=== PATIENT | female | born 1965 | race Caucasian/White ===

== ENCOUNTER 2018-06-02 22:24 | Emergency (ER) | payer MEDICARE ==
[~2018-06-02] VITALS: Ht 162.6 cm; Wt 99.8 kg
== END 2018-06-02 23:20 | disposition left against medical advice (07) ==
LOC: ER 22:24
DX: R19.7 Diarrhea, unspecified (principal)

== ENCOUNTER 2018-06-03 00:24 | Emergency (ER) | payer MEDICARE ==
[~2018-06-03] VITALS: Ht 162.6 cm; Wt 99.8 kg
[2018-06-03 01:52] LABS: BASOPHILS % 0.3 % (0.0-1.0); EOSINOPHILS # (AUTO) 0.2 (0.0-0.4); EOSINOPHILS % 1.8 % (0.0-6.0); HEMATOCRIT 35.9 % (34.2-44.1); HEMOGLOBIN 12.1 g/dL (12.0-16.0); LYMPHOCYTES # (AUTO) 1.4 (1.0-3.2); LYMPHOCYTES % 12.2 % (18.0-39.1); MEAN CORPUSCULAR HEMOGLOBIN 34.9 pg (28-32); MEAN CORPUSCULAR HGB CONC 33.7 g/dL (31-35); MEAN CORPUSCULAR VOLUME 103.5 fL (81-99); MONOCYTES # (AUTO) 0.5 (0.2-0.8); MONOCYTES % 4.6 % (4.4-11.3); NEUTROPHILS # (AUTO) 9.3 (2.1-6.9); NEUTROPHILS % 80.8 % (38.7-80.0); PLATELET COUNT 222 x10e3/uL (140-360); RED BLOOD COUNT 3.47 x10e6/uL (3.6-5.1); RED CELL DISTRIBUTION WIDTH 13.2 % (11.7-14.4)
[2018-06-03 02:04] LABS: INR 1.02; PARTIAL THROMBOPLASTIN TIME 27.6 seconds (23.8-35.5); PROTHROMBIN TIME 12.6 seconds (11.9-14.5)
[2018-06-03 02:12] LABS: ALBUMIN 3.5 g/dL (3.5-5.0); ALBUMIN/GLOBULIN RATIO 0.8 (0.8-2.0); ANION GAP 23.9 mmol/L (8-16); CALCIUM 9.4 mg/dL (8.4-10.2); CREATININE, SERUM 8.57 mg/dL (0.57-1.11); POTASSIUM 4.9 mmol/L (3.5-5.1)
== END 2018-06-03 03:00 | disposition home or self-care (01) ==
LOC: ER 00:24
DX: R88.8 Abnormal findings in other body fluids and substances (principal); N18.6 End stage renal disease; Z99.2 Dependence on renal dialysis
CPT/HCPCS: 36415; 80053; 85025; 85610; 85730; 86850; 86900; 99283

== ENCOUNTER 2019-03-19 09:53 | Emergency (ER) | payer MEDICARE ==
[~2019-03-19] VITALS: Ht 162.6 cm; Wt 103.6 kg
--- OUTSIDE RECORDS SUMMARY | 2019-03-19 09:55 | XMS REPORT | Clinical Summary ---
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 Last Filed Vital Signs Not on file Plan of Treatment Health Maintenance Due Date Last Done Comments BREAST CANCER SCREENING 2015 COLON CANCER SCREENING 2015 SHINGLES VACCINES (#1) 2015 INFLUENZA VACCINE 05/18/2019 Results Not on fileafter 03/18/2018 Insurance Type Payer Benefit Subscriber ID Effective Phone Address Plan / Dates Group Medicare MEDICARE MEDICARE xxxxxxxxxx 2013-P [place] Medicaid MEDICAID MEDICAID xxxxxxxxx 2016- Present Advance Directives Patient has advance care planning documents on file. For more information, ric lanier contact: Orlando Cummins [address] [place] [address]
--- OUTSIDE RECORDS SUMMARY | 2019-03-19 09:56 | XMS REPORT | Clinical Summary ---
Author Author REAL [facility] Organization [facility] Address Unknown Phone Unavailable Care Team Providers Care Furniture Packer Name Role Phone Mike Forbes PCP Unavailable Pedro Castillo Unavailable Francisco Monroy MD 3 Leslie Iglesias MD 3 Unavailable Allergies Comments Active Allergy Reactions Severity Noted Date Tachycardia Glyburide 05/21/2014 Penicillins Anaphylaxis, High 05/21/2014 Hives Medications End Date Status Medication Sig Dispensed Refills Start Date Active simvastatin (ZOCOR) 20 MG Take 20 mg by 0 tablet mouth nightly. Active levothyroxine (SYNTHROID, Take 75 mcg 0 LEVOTHROID) 75 MCG tablet by mouth daily. Active metoprolol (LOPRESSOR) 50 Take 50 mg by 0 MG tablet mouth 2 (two) times daily. Active cholecalciferol, vitamin Take 50,000 0 D3, 50,000 unit Tab Units by mouth. Active insulin glargine (LANTUS) Inject 25 0 100 unit/mL injection Units subcutaneousl y every morning Use as directed . Active FA-vit Take 1 tablet 0 Bcomp&E-btpdjghu-yvjd by mouth 2 (FOLIC ACID-VITAMIN B (two) times COMPLEX-VITAMIN daily . C-[id number]) 3-70-15 mg-mcg-mg Tab Active omega-3 fatty acids-fish Take 2 g by 0 oil 340-1,000 mg Cap per mouth 2 (two) capsule times daily. Active sevelamer (RENVELA) 800 Take 800 mg 0 mg tabletIndications: 4 by mouth 3 tabs w/ meals (three) times daily with meals. Active sertraline (ZOLOFT) 50 MG Take 50 mg by 0 tablet mouth 2 (two) times daily . Active ondansetron (ZOFRAN) 4 MG Take 4 mg by 0 tablet mouth 2 (two) times daily as needed for Nausea. Active ferric citrate (AURYXIA) Take 420 mg 0 210 mg iron Tab by mouth 3 (three) times daily . Active midodrine (PROAMATINE) 5 Take 5 mg by 0 MG tabletIndications: mouth. take on Tues, Thurs and Sat. Active furosemide (LASIX) 80 MG Take 80 mg by 0 tablet mouth 3 (three) times daily. 11/01/2018 Discontinued furosemide (LASIX) 40 MG Take 80 mg by 0 tablet mouth daily . 11/01/2018 Discontinued calcium acetate (PHOSLO) Take 667 mg 0 667 mg capsule by mouth 3 (three) times daily with meals. 11/01/2018 Discontinued citalopram (CELEXA) 40 MG Take 40 mg by 0 tablet mouth daily. 11/01/2018 Discontinued docusate sodium (COLACE) Take 100 mg 0 100 MG capsule by mouth 2 (two) times daily. 11/01/2018 Discontinued multivitamin per tablet Take 1 tablet 0 by mouth daily. 11/01/2018 Discontinued buPROPion (WELLBUTRIN XL) Take 300 mg 0 300 MG 24 hr tablet by mouth daily. 11/01/2018 Discontinued midodrine (PROAMATINE) 10 Take 10 mg by 0 MG tablet mouth 3 (three) times daily. 11/01/2018 Discontinued iron, carbonyl (IRON) 65 Take by 0 mg Tab mouth. 11/01/2018 Discontinued ipratropium-albuterol Take 3 mLs by 0 (DUO-NEB) 0.5 mg-3 mg(2.5 nebulization mg base)/3 mL nebulizer every 6 (six) solution hours as needed for Wheezing. 11/01/2018 Discontinued albuterol Take 2.5 mg 0 (PROVENTIL,VENTOLIN) 5 by mg/mL nebulizer solution nebulization every 6 (six) hours as needed for Wheezing. 11/01/2018 Discontinued traMADol (ULTRAM) 50 mg Take 50 mg by 0 tablet mouth every 6 (six) hours as needed for Pain. Active Problems Problem Noted Date ESRD (end stage renal disease) 05/21/2014 Last Assessment & Plan: In evaluation. Weight loss management Encounters Care Team Description Date Type Specialty Eusebia Magaña RN 12/20/2018 Documentation Transplant Jenny Douglass Appointment (Per Mr. Mcintyre he appt will need to be rescheduled she's unable to keep the appt because the patient will need to do dialysis on . Mr Mcintyre is aware of the new appt dates and I have emailed the itinerary to the patient and mailed the itinerary) 12/14/2018 Telephone Transplant Jenny Douglass Appointment ( is aware of appts and the preps for the testing. I have mailed her itineraries) 11/14/2018 Telephone Transplant Jenny Douglass Appointment (Left a message for the patient to call me back about her schedule) 11/02/2018 Telephone Transplant Angelica Loaiza MD Labrador, Florencia P, RN Pre-transplant evaluation for chronic kidney disease (Primary Dx) 11/01/2018 Office Visit Transplant Angelica Loaiza MD Pre-transplant evaluation for chronic kidney disease; ESRD (end stage renal disease) on dialysis (HCC); Anemia of renal disease; Type 2 diabetes mellitus with stage 5 chronic kidney disease not on chronic dialysis, unspecified whether correction insulin use (HCC) 11/01/2018 Orders Only Transplant Hepatology Jenny Douglass Appointment (Left a message for Mr. Mcintyre to call back about his spouse appt dates) 11/01/2018 Telephone Transplant Eusebia Magaña RN 11/01/2018 Documentation Transplant Hernan Graves II, MD 10/28/2018 Outside Orders Radiology Jenny Douglass Appointment (Left a message for the patient to call back to confim her appt on 11.01.18) 10/28/2018 Telephone Transplant Eun Alonso 08/23/2018 Abstract Transplant Eun Alonso Appointment (reschedule missed appt) 08/16/2018 Telephone Transplant Jenny Douglass Appointment (Left a message on the pts cell, home and emergency contact voicemail to call back to confirm her appts and reschedule he missed appt) 08/15/2018 Telephone Transplant Eun Alonso Appointment (reschedule missed appt) 07/19/2018 Telephone Transplant Eun Alonso Appointment (Reschedule) 06/28/2018 Telephone Transplant Eusebia Magaña RN 06/15/2018 Abstract Transplant Eusebia Magaña RN Pre-transplant evaluation for chronic kidney disease (Primary Dx); ESRD (end stage renal disease) on dialysis (HCC); Anemia of renal disease; Type 2 diabetes mellitus with stage 5 chronic kidney disease not on chronic dialysis, unspecified whether termite treater insulin use (HCC) 06/15/2018 Orders Only Transplant Eun Alonso 05/26/2018 Abstract Transplant Eun Alonso 05/13/2018 Abstract Transplant after 03/18/2018 Social History Date Tobacco Use Types Packs/Day Years Used Never Smoker Smokeless Tobacco: Never Used Alcohol Use Drinks/Week oz/Week Comments No Sex Assigned at Date Recorded Not on file Industry Job Start Date Occupation Not on file Not on file Not on file Travel End Travel History Travel Start No recent travel history available. Last Filed Vital Signs Time Taken Vital Sign Reading - Blood Pressure - - Pulse - - Temperature - - Respiratory Rate - - Oxygen Saturation - - Inhaled Oxygen - Concentration 08/23/2018 10:17 AM [employer]ICAL [employer]STRUMENT [employer] Weight 101 kg (222 lb 10.6 oz) 08/23/2018 10:17 AM [employer]LECTRICAL AND INSTRUMENT MECHANIC Height 162.6 cm (5' 4") 08/23/2018 10:17 AM [employer]LECTRICAL AND INSTRUMENT MECHANIC Body Mass Index 38.22 Plan of Treatment Not on file Procedures Comments Procedure Name Priority Date/Time Associated Diagnosis TRANSFUSION SERVICE 11/02/2018 REPORT - SCAN 6:05 PM ELECTRICAL AND INSTRUMENT MECHANIC CBC W/PLT COUNT & AUTO Routine 11/01/2018 Pre-transplant evaluation DIFFERENTIAL 8:42 AM ELECTRICAL AND INSTRUMENT MECHANIC for chronic kidney disease ESRD (end stage renal disease) on dialysis (HCC) Anemia of renal disease Type 2 diabetes mellitus with stage 5 chronic kidney disease not on chronic dialysis, unspecified whether correction insulin use (HCC) DIRECT AHG (RICARDA)/DIRECT Routine 11/01/2018 Pre-transplant evaluation MARSHAL 8:42 AM ELECTRICAL AND INSTRUMENT MECHANIC for chronic kidney disease ESRD (end stage renal disease) on dialysis (HCC) Anemia of renal disease Type 2 diabetes mellitus with stage 5 chronic kidney disease not on chronic dialysis, unspecified whether correction insulin use (HCC) FLOW PRA CLASS I WITH Routine 11/01/2018 Pre-transplant evaluation REFLEX TO ANTIBODY 8:42 AM ELECTRICAL AND INSTRUMENT MECHANIC for chronic kidney SPECIFICITY disease ESRD (end stage renal disease) on dialysis (HCC) Anemia of renal disease Type 2 diabetes mellitus with stage 5 chronic kidney disease not on chronic dialysis, unspecified whether correction insulin use (HCC) FLOW PRA CLASS II WITH Routine 11/01/2018 Pre-transplant evaluation REFLEX TO ANTIBODY 8:42 AM ELECTRICAL AND INSTRUMENT MECHANIC for chronic kidney SPECIFICITY disease ESRD (end stage renal disease) on dialysis (HCC) Anemia of renal disease Type 2 diabetes mellitus with stage 5 chronic kidney disease not on chronic dialysis, unspecified whether correction insulin use (HCC) HLA TYPING CI Routine 11/01/2018 Pre-transplant evaluation 8:42 AM ELECTRICAL AND INSTRUMENT MECHANIC for chronic kidney disease ESRD (end stage renal disease) on dialysis (HCC) Anemia of renal disease Type 2 diabetes mellitus with stage 5 chronic kidney disease not on chronic dialysis, unspecified whether termite treater insulin use (HCC) HLA TYPING CII Routine 11/01/2018 Pre-transplant evaluation 8:42 AM ELECTRICAL AND INSTRUMENT MECHANIC for chronic kidney disease ESRD (end stage renal disease) on dialysis (HCC) Anemia of renal disease Type 2 diabetes mellitus with stage 5 chronic kidney disease not on chronic dialysis, unspecified whether correction insulin use (HCC) VARICELLA ZOSTER Routine 11/01/2018 Pre-transplant evaluation ANTIBODY, IGG 8:42 AM ELECTRICAL AND INSTRUMENT MECHANIC for chronic kidney disease ESRD (end stage renal disease) on dialysis (HCC) Anemia of renal disease Type 2 diabetes mellitus with stage 5 chronic kidney disease not on chronic dialysis, unspecified whether termite treater insulin use (HCC) URIC ACID Routine 11/01/2018 Pre-transplant evaluation 8:42 AM ELECTRICAL AND INSTRUMENT MECHANIC for chronic kidney disease ESRD (end stage renal disease) on dialysis (HCC) Anemia of renal disease Type 2 diabetes mellitus with stage 5 chronic kidney disease not on chronic dialysis, unspecified whether termite treater insulin use (HCC) T SPOT TB Routine 11/01/2018 Pre-transplant evaluation 8:42 AM ELECTRICAL AND INSTRUMENT MECHANIC for chronic kidney disease ESRD (end stage renal disease) on dialysis (HCC) Anemia of renal disease Type 2 diabetes mellitus with stage 5 chronic kidney disease not on chronic dialysis, unspecified whether correction insulin use (HCC) RPR Routine 11/01/2018 Pre-transplant evaluation 8:42 AM ELECTRICAL AND INSTRUMENT MECHANIC for chronic kidney disease ESRD (end stage renal disease) on dialysis (HCC) Anemia of renal disease Type 2 diabetes mellitus with stage 5 chronic kidney disease not on chronic dialysis, unspecified whether correction insulin use (HCC) PT/APTT Routine 11/01/2018 Pre-transplant evaluation 8:42 AM ELECTRICAL AND INSTRUMENT MECHANIC for chronic kidney disease ESRD (end stage renal disease) on dialysis (HCC) Anemia of renal disease Type 2 diabetes mellitus with stage 5 chronic kidney disease not on chronic dialysis, unspecified whether termite treater insulin use (HCC) PTH, INTACT Routine 11/01/2018 Pre-transplant evaluation 8:42 AM ELECTRICAL AND INSTRUMENT MECHANIC for chronic kidney disease ESRD (end stage renal disease) on dialysis (HCC) Anemia of renal disease Type 2 diabetes mellitus with stage 5 chronic kidney disease not on chronic dialysis, unspecified whether correction insulin use (HCC) PHOSPHORUS Routine 11/01/2018 Pre-transplant evaluation 8:42 AM ELECTRICAL AND INSTRUMENT MECHANIC for chronic kidney disease ESRD (end stage renal disease) on dialysis (HCC) Anemia of renal disease Type 2 diabetes mellitus with stage 5 chronic kidney disease not on chronic dialysis, unspecified whether termite treater insulin use (HCC) LACTATE DEHYDROGENASE Routine 11/01/2018 Pre-transplant evaluation (LDH) 8:42 AM ELECTRICAL AND INSTRUMENT MECHANIC for chronic kidney disease ESRD (end stage renal disease) on dialysis (HCC) Anemia of renal disease Type 2 diabetes mellitus with stage 5 chronic kidney disease not on chronic dialysis, unspecified whether correction insulin use (HCC) HIV-1 ANTIGEN WITH Routine 11/01/2018 Pre-transplant evaluation HIV-1/2 ANTIBODY 8:42 AM ELECTRICAL AND INSTRUMENT MECHANIC for chronic kidney disease ESRD (end stage renal disease) on dialysis (HCC) Anemia of renal disease Type 2 diabetes mellitus with stage 5 chronic kidney disease not on chronic dialysis, unspecified whether correction insulin use (HCC) HEPATITIS C ANTIBODY Routine 11/01/2018 Pre-transplant evaluation 8:42 AM ELECTRICAL AND INSTRUMENT MECHANIC for chronic kidney disease ESRD (end stage renal disease) on dialysis (HCC) Anemia of renal disease Type 2 diabetes mellitus with stage 5 chronic kidney disease not on chronic dialysis, unspecified whether correction insulin use (HCC) HEPATITIS B CORE Routine 11/01/2018 Pre-transplant evaluation ANTIBODY, IGM 8:42 AM ELECTRICAL AND INSTRUMENT MECHANIC for chronic kidney disease ESRD (end stage renal disease) on dialysis (HCC) Anemia of renal disease Type 2 diabetes mellitus with stage 5 chronic kidney disease not on chronic dialysis, unspecified whether termite treater insulin use (HCC) HEPATITIS B SURFACE Routine 11/01/2018 Pre-transplant evaluation ANTIGEN 8:42 AM ELECTRICAL AND INSTRUMENT MECHANIC for chronic kidney disease ESRD (end stage renal disease) on dialysis (HCC) Anemia of renal disease Type 2 diabetes mellitus with stage 5 chronic kidney disease not on chronic dialysis, unspecified whether correction insulin use (HCC) HEPATITIS B SURFACE Routine 11/01/2018 Pre-transplant evaluation ANTIBODY 8:42 AM ELECTRICAL AND INSTRUMENT MECHANIC for chronic kidney disease ESRD (end stage renal disease) on dialysis (HCC) Anemia of renal disease Type 2 diabetes mellitus with stage 5 chronic kidney disease not on chronic dialysis, unspecified whether correction insulin use (HCC) GAMMA GLUTAMYL Routine 11/01/2018 Pre-transplant evaluation TRANSFERASE (GGT) 8:42 AM ELECTRICAL AND INSTRUMENT MECHANIC for chronic kidney disease ESRD (end stage renal disease) on dialysis (HCC) Anemia of renal disease Type 2 diabetes mellitus with stage 5 chronic kidney disease not on chronic dialysis, unspecified whether termite treater insulin use (HCC) EBV ANTIBODY, IGM Routine 11/01/2018 Pre-transplant evaluation 8:42 AM ELECTRICAL AND INSTRUMENT MECHANIC for chronic kidney disease ESRD (end stage renal disease) on dialysis (HCC) Anemia of renal disease Type 2 diabetes mellitus with stage 5 chronic kidney disease not on chronic dialysis, unspecified whether correction insulin use (HCC) EBV ANTIBODY, IGG Routine 11/01/2018 Pre-transplant evaluation 8:42 AM ELECTRICAL AND INSTRUMENT MECHANIC for chronic kidney disease ESRD (end stage renal disease) on dialysis (HCC) Anemia of renal disease Type 2 diabetes mellitus with stage 5 chronic kidney disease not on chronic dialysis, unspecified whether termite treater insulin use (HCC) COMPREHENSIVE METABOLIC Routine 11/01/2018 Pre-transplant evaluation PANEL 8:42 AM ELECTRICAL AND INSTRUMENT MECHANIC for chronic kidney disease ESRD (end stage renal disease) on dialysis (HCC) Anemia of renal disease Type 2 diabetes mellitus with stage 5 chronic kidney disease not on chronic dialysis, unspecified whether termite treater insulin use (HCC) CYTOMEGALOVIRUS ANTIBODY, Routine 11/01/2018 Pre-transplant evaluation IGM 8:42 AM ELECTRICAL AND INSTRUMENT MECHANIC for chronic kidney disease ESRD (end stage renal disease) on dialysis (HCC) Anemia of renal disease Type 2 diabetes mellitus with stage 5 chronic kidney disease not on chronic dialysis, unspecified whether correction insulin use (HCC) CYTOMEGALOVIRUS ANTIBODY, Routine 11/01/2018 Pre-transplant evaluation IGG 8:42 AM ELECTRICAL AND INSTRUMENT MECHANIC for chronic kidney disease ESRD (end stage renal disease) on dialysis (HCC) Anemia of renal disease Type 2 diabetes mellitus with stage 5 chronic kidney disease not on chronic dialysis, unspecified whether correction insulin use (HCC) CBC W/PLT COUNT & AUTO Routine 11/01/2018 Pre-transplant evaluation DIFFERENTIAL 8:42 AM ELECTRICAL AND INSTRUMENT MECHANIC for chronic kidney disease ESRD (end stage renal disease) on dialysis (HCC) Anemia of renal disease Type 2 diabetes mellitus with stage 5 chronic kidney disease not on chronic dialysis, unspecified whether termite treater insulin use (HCC) HEMOGLOBIN A1C Routine 11/01/2018 Pre-transplant evaluation 8:42 AM ELECTRICAL AND INSTRUMENT MECHANIC for chronic kidney disease ESRD (end stage renal disease) on dialysis (HCC) Anemia of renal disease Type 2 diabetes mellitus with stage 5 chronic kidney disease not on chronic dialysis, unspecified whether correction insulin use (HCC) BLOOD TYPING, AUTOMATED Routine 11/01/2018 Pre-transplant evaluation 8:26 AM ELECTRICAL AND INSTRUMENT MECHANIC for chronic kidney disease ESRD (end stage renal disease) on dialysis (HCC) Anemia of renal disease Type 2 diabetes mellitus with stage 5 chronic kidney disease not on chronic dialysis, unspecified whether correction insulin use (HCC) after 03/18/2018 Results * TRANSFUSION SERVICE REPORT - SCAN (11/02/2018 6:05 PM ELECTRICAL AND INSTRUMENT MECHANIC) Narrative Performed At * HLA TYPING CII (11/01/2018 8:42 AM ELECTRICAL AND INSTRUMENT MECHANIC) HLA-DR AG1 7 [facility] HLA-DR AG2 7 [facility] HLA-DR AG3-1 [facility] HLA-DR AG3-2 [facility] HLA-DR AG4-1 53 [facility] HLA-DR AG4-2 53 [facility] HLA-DR AG5-1 [facility] HLA-DR AG5-2 [facility] HLA-DQA1 AG 1-1 02 [facility] HLA-DQA1 AG 1-2 02 [facility] HLA-DQB1 AG 1-1 2 [facility] HLA-DQB1 AG 1-2 2 [facility] HLA-DPA1 AG 1-1 01 [facility] HLA-DPA1 AG 1-2 02 [facility] HLA-DPB1 AG 1-1 04:01 [facility] HLA-DPB1 AG 1-2 11:01 [facility] HLA-AG Notes [facility] HLA-AG Report Comments [facility] Specimen Blood Narrative Performed At Disclaimer: [facility] This test was developed and its performance characteristics determined by the [facility]. It has not been cleared or approved by the U.S. Food and Drug Administration. The FDA has determined that such clearance or approval is not necessary. This test is used for clinical purposes. It should not be regarded as investigational or for research. This laboratory is certified under the Clinical Laboratory Improvement Amendments of 1988 (CLIA-88) as qualified to perform high complexity clinical laboratory testing. Performing Organization Address City/State/Zipcode Phone Number [facility] ONE [facility] [address], [address]: [id number], [place] [address] CLIA#[id number] CAP#[id number] UNOS#[id number] * HLA TYPING CI (11/01/2018 8:42 AM ELECTRICAL AND INSTRUMENT MECHANIC) HLA-A AG1 3 [facility] HLA-A AG2 29 [facility] HLA-B AG1 44 [facility] HLA-B AG2 51 [facility] HLA-C AG1 16 [facility] HLA-C AG2 16 [facility] HLA-B BW1 4 [facility] HLA-B BW2 4 [facility] HLA-AG Notes [facility] HLA-AG Report Comments [facility] Specimen Blood Narrative Performed At Disclaimer: [facility] This test was developed and its performance characteristics determined by the [facility]. It has not been cleared or approved by the U.S. Food and Drug Administration. The FDA has determined that such clearance or approval is not necessary. This test is used for clinical purposes. It should not be regarded as investigational or for research. This laboratory is certified under the Clinical Laboratory Improvement Amendments of 1988 (CLIA-88) as qualified to perform high complexity clinical laboratory testing. Performing Organization Address City/[facility] Phone Number [facility] Danial [address], [address]: [id number], [place] [address] CLIA#[id number] CAP#[id number] UNOS#[id number] * FLOW PRA CLASS II WITH REFLEX TO ANTIBODY SPECIFICITY (11/01/2018 8:42 AM ELECTRICAL AND INSTRUMENT MECHANIC) Flow Class II Percent 0 [facility] Positive Flow Class Report [facility] Comments Specimen Blood Narrative Performed At Disclaimer: [facility] This test was developed and its performance characteristics determined by the [facility]. It has not been cleared or approved by the U.S. Food and Drug Administration. The FDA has determined that such clearance or approval is not necessary. This test is used for clinical purposes. It should not be regarded as investigational or for research. This laboratory is certified under the Clinical Laboratory Improvement Amendments of 1988 (CLIA-88) as qualified to perform high complexity clinical laboratory testing. Performing Organization Address [facility] Phone Number [facility] Danial [address], MS: [id number], [place] [address] CLIA#[id number] CAP#[id number] UNOS#[id number] * FLOW PRA CLASS I WITH REFLEX TO ANTIBODY SPECIFICITY (11/01/2018 8:42 AM ELECTRICAL AND INSTRUMENT MECHANIC) Flow Class I Percent 0 [facility] Positive Flow Class Report [facility] Comments Specimen Blood Narrative Performed At Disclaimer: [facility] This test was developed and its performance characteristics determined by the [facility]. It has not been cleared or approved by the U.S. Food and Drug Administration. The FDA has determined that such clearance or approval is not necessary. This test is used for clinical purposes. It should not be regarded as investigational or for research. This laboratory is certified under the Clinical Laboratory Improvement Amendments of 1988 (CLIA-88) as qualified to perform high complexity clinical laboratory testing. Performing Organization Address [facility] Phone Number [facility] Danial [address], [address]: [id number], [place] [address] CLIA#[id number] CAP#[id number] UNOS#[id number] * T Spot TB (11/01/2018 8:42 AM ELECTRICAL AND INSTRUMENT MECHANIC) T-Spot TB Negative [facility] Neg Ctrl Spot Count 0 [facility] Panel A Spot 2 [facility] Panel B Spot 0 [facility] Pos Ctrl Spot Ct 0 [facility] Scan Result [facility] Specimen Blood Narrative Performed At Performing Organization Address City/State/Zipcode Phone Number [facility] [address] [place] [address] LABORATORIES 100 * PT/aPTT (11/01/2018 8:42 AM ELECTRICAL AND INSTRUMENT MECHANIC) Protime 12.9 11.7 - 14.[address] [facility] [place] INR 1.0 <=5.[address] [facility] [place] PTT 30.5 22.5 - 36.[address] [facility] [place] Specimen Blood Narrative Performed At RECOMMENDED COUMADIN/WARFARIN INR THERAPY RANGES [facility] STANDARD DOSE: 2.0 - 3.0 Includes: PROPHYLAXIS for venous thrombosis, [facility] systemic embolization; TREATMENT for venous thrombosis and/or pulmonary embolus. HIGH RISK: Target INR is 2.5-3.5 for patients with mechanical heart valves. Performing Organization Address City/[facility]/Zipcode Phone Number [place] [phone] [place] [address] [facility] * HIV-1 Antigen with HIV-1/2 Antibody (11/01/2018 8:42 AM ELECTRICAL AND INSTRUMENT MECHANIC) HIV-1 Antigen with HIV NON-REACTIVE Nonreactive [facility] 1&2 Antibody [facility] Specimen Blood Performing Organization Address City/[facility]/Zipcode Phone Number [facility] [address] [place] [address] [facility] * CBC with platelet count + automated diff (11/01/2018 8:42 AM ELECTRICAL AND INSTRUMENT MECHANIC) WBC 8.8 3.5 - 10.5 K/L [facility] [place] RBC 2.96 (L) 3.93 - 5.22 M/L [facility] [place] Hemoglobin 10.0 (L) 11.2 - 15.7 GM/DL [facility] [place] Hematocrit 30.0 (L) 34.1 - 44.9 % [facility] [place] [place] MCV 101.4 (H) 79.4 - 94.[address] [facility] [place] MCH 33.8 (H) 25.6 - 32.[address] [facility] [place] MCHC 33.3 32.2 - 35.5 GM/DL [facility] [place] RDW 11.8 11.7 - 14.4 % [facility] [place] Platelets 202 150 - 450 K/CU MM [facility] [place] MPV 10.7 9.4 - 12.[address] [facility] [place] nRBC 0 0 - 0 /[address] [facility] [place] % Neutros 81 % [facility] [place] % Lymphs 11 % [facility] [place] % Monos 5 % [facility] [place] % Eos 2 % [facility] [place] % Baso 1 % [facility] [place] # Neutros 7.11 (H) 1.56 - 6.13 K/L [facility] [place] # Lymphs 0.98 (L) 1.18 - 3.74 K/L [facility] [place] # Monos 0.44 (H) 0.24 - 0.36 K/L [facility] [place] # Eos 0.18 0.04 - 0.36 K/L [facility] [place] # Baso 0.05 0.01 - 0.08 K/L [facility] [place] Immature 1 0 - 1 % [facility] Granulocytes-[facility] Specimen Blood Performing Organization Address City/State/Zipcode Phone Number [phone] [place] [address] * Hepatitis C Antibody (11/01/2018 8:42 AM ELECTRICAL AND INSTRUMENT MECHANIC) Hepatitis C Ab NON-REACTIVE Nonreactive [facility] [place] Specimen Blood Performing Organization Address City/[facility] Phone Number [place] [phone] [place] [address] * Cytomegalovirus antibody, IgM (11/01/2018 8:42 AM ELECTRICAL AND INSTRUMENT MECHANIC) CMV IGM Negative Negative, Equivocal [facility] [place] Specimen Blood Narrative Performed At CMV IgM Result Interpretation: [facility] </=0.8 Al Negative [facility] 0.9-1.0 Al Equivocal >/=1.1 Al Positive Performing Organization Address [facility] Phone Number [address] * Hepatitis B core antibody, IgM (11/01/2018 8:42 AM ELECTRICAL AND INSTRUMENT MECHANIC) Hep B C IgM NON-REACTIVE Nonreactive [facility] [place] Specimen Blood Performing Organization Address City/[facility]/Zipcode Phone Number [address] * EBV-VCA antibody, IgM (11/01/2018 8:42 AM ELECTRICAL AND INSTRUMENT MECHANIC) YUNIEL ELLISON VIRAL CAPSID Negative Negative, Equivocal [facility] ANTIGEN IGM [facility] Specimen Blood Narrative Performed At Yuniel Ellison Viral Capsid Antigen IgM Result Interpretation: [facility] </=0.8 Al Negative [facility] 0.9-1.0 Al Equivocal >/=1.1 Al Positive Performing Organization Address City/[facility] Phone Number [address] * EBV-VCA antibody, IgG (11/01/2018 8:42 AM ELECTRICAL AND INSTRUMENT MECHANIC) YUNIEL ELLISON VIRAL CAPSID Positive (A) Negative, Equivocal [facility] ANTIGEN IGG [facility] Specimen Blood Narrative Performed At Yuniel Ellison Viral Capsid Antigen IgG Result Interpretation: [facility] </=0.8 Al Negative [facility] 0.9-1.0 Al Equivocal >/=1.1 Al Positive Performing Organization Address City/[facility] Phone Number [address] * RPR (11/01/2018 8:42 AM ELECTRICAL AND INSTRUMENT MECHANIC) RPR Nonreactive Nonreactive [facility] [place] Specimen Blood Performing Organization Address [facility] Phone Number [address] * Hepatitis B surface antibody (11/01/2018 8:42 AM ELECTRICAL AND INSTRUMENT MECHANIC) Hep B S Ab <8.0 <8.0 mIU/mL [facility] [place] Specimen Blood Performing Organization Address [facility] Phone Number [address] * Hepatitis B surface antigen (11/01/2018 8:42 AM ELECTRICAL AND INSTRUMENT MECHANIC) hepatitis B Surface Ag NON-REACTIVE Nonreactive [facility] [place] Specimen Blood Performing Organization Address [facility] Phone Number [address] * Cytomegalovirus antibody, IgG (11/01/2018 8:42 AM ELECTRICAL AND INSTRUMENT MECHANIC) CYTOMEGALOVIRUS, IGG Positive (A) Negative, Equivocal [facility] [place] Specimen Blood Narrative Performed At CMV IgG Result Interpretation: [facility] </=0.8 Al Negative [facility] 0.9-1.0 Al Equivocal >/=1.1 AlPositive Performing Organization Address [facility] Phone Number [address] * Direct AHG (RICARDA)/Direct Marshal (11/01/2018 8:42 AM ELECTRICAL AND INSTRUMENT MECHANIC) Direct AHG-IGG NEGATIVE [facility] Direct AHG-C3B, C3D NEGATVIE [facility] Specimen Blood Performing Organization Address [facility] Phone Number [address] * Varicella Zoster Antibody, IgG (11/01/2018 8:42 AM ELECTRICAL AND INSTRUMENT MECHANIC) Varicella IgG 4.[address] [facility] [place] Specimen Blood Narrative Performed At VARICELLA ZOSTER RESULT INTERPRETATIONS: [facility] <=0.8 AlNonreactive:Presumed non-immune to VZV [facility] 0.9-1.0 AlEquivocal >=1.1 AlReactive:Presumed immune to VZV Performing Organization Address [facility] Phone Number [address] * Uric Acid (11/01/2018 8:42 AM ELECTRICAL AND INSTRUMENT MECHANIC) Uric Acid 5.6 2.6 - 7.2 mg/dL [facility] [place] Specimen Blood Performing Organization Address [facility] Phone Number [address] * Phosphorus (11/01/2018 8:42 AM ELECTRICAL AND INSTRUMENT MECHANIC) Phosphorus 7.2 (H) 2.3 - 4.7 mg/dL [facility] [place] Specimen Blood Performing Organization Address City/[facility] Phone Number [address] * PTH, Intact (11/01/2018 8:42 AM ELECTRICAL AND INSTRUMENT MECHANIC) PTH 618.4 (H) 8.5 - 72.5 pg/mL [facility] [place] Specimen Blood Performing Organization Address [facility] Phone Number [address] * Lactate Dehydrogenase (LDH) (11/01/2018 8:42 AM ELECTRICAL AND INSTRUMENT MECHANIC) LDH 224 (H) 125 - 220 U/L [facility] [place] Specimen Blood Performing Organization Address City/[facility] Phone Number [address] * Hemoglobin A1c (11/01/2018 8:42 AM ELECTRICAL AND INSTRUMENT MECHANIC) Hemoglobin A1C 10.5 (H) 4.3 - 6.1 % [facility] [place] Specimen Blood Performing Organization Address City/[facility] Phone Number [address] * Gamma Glutamyl Transferase (GGT) (11/01/2018 8:42 AM ELECTRICAL AND INSTRUMENT MECHANIC) GGT 91 (H) 9 - 64 U/L [facility] [place] Specimen Blood Performing Organization Address City/[facility] Phone Number [address] * Comprehensive metabolic panel (11/01/2018 8:42 AM ELECTRICAL AND INSTRUMENT MECHANIC) Protein, Total 7.1 6.0 - 8.3 gm/dL [facility] [place] Albumin 3.8 3.5 - 5.0 g/dL [facility] [place] Alkaline Phosphatase 169 (H) 40 - 150 U/L [facility] [place] Total Bilirubin 0.7 0.2 - 1.2 mg/dL [facility] [place] Sodium 133 (L) 136 - 145 meq/L [facility] [place] Potassium 3.8 3.5 - 5.1 meq/L [facility] [place] Chloride 91 (L) 98 - 107 meq/L [facility] [place] CO2 27 22 - 29 meq/L [facility] [place] BUN 63 (H) 7 - 21 mg/dL [facility] [place] Creatinine 8.09 (H) 0.57 - 1.25 mg/dL [facility] [place] Glucose 545 (HH) 70 - 105 mg/dL [facility] [place] Calcium 9.1 8.4 - 10.2 mg/dL [facility] [place] AST 21 5 - 34 U/L [facility] [place] ALT 23 6 - 55 U/L [facility] [place] EGFR 5Comment: ESTIMATED GFR IS NOT mL/min/1.73 sq m [facility] ACCURATE CREATININE [facility] CLEARANCE IN PREDICTING GLOMERULAR FILTRATION RATE. ESTIMATED GFR IS NOT APPLICABLE FOR DIALYSIS PATIENTS. Specimen Blood Performing Organization Address City/State/Zipcode Phone Number [address] [address] [facility] * Blood typing, automated (11/01/2018 8:26 AM ELECTRICAL AND INSTRUMENT MECHANIC) ABO/RH AUTOMATED (ZI) O POSITIVE [facility] Specimen Blood Performing Organization Address City/State/Zipcode Phone Number [facility] [address] [place] [address] [facility] after 03/18/2018 Insurance Payer Benefit Subscriber ID Type Phone Address Plan / Group MEDICARE MEDICARE A xxxxxxxxxxx Medicare B MEDICAID MEDICAID xxxxxxxxx Medicaid OF [place]
--- OUTSIDE RECORDS SUMMARY | 2019-03-19 09:56 | XMS REPORT ---
Author Author [facility] Address Unknown Phone Unavailable Care Team Providers Care Sign Board Erector Name Role Phone LEWIS ROMERO Unavailable Unavailable Problems This patient has no known problems. Allergies, Adverse Reactions, Alerts This patient has no known allergies or adverse reactions. Medications This patient has no known medications. Results Test Description Test Time Test Comments Text Results Atomic Results Result Comments HEMOGLOBIN A1C 2018-11-01 12:05:00 HEMOGLOBIN A1C (BEAKER) (test nivb=759) 10.5 % 4.3-6.1 [id number] 11:58:00* Test Item Value Reference Range Comments RPR SCREEN (BEAKER) (test pqxz=249) Nonreactive Nonreactive VARICELLA ZOSTER ANTIBODY, [id number] 11:38:00* Test Item Value Reference Range Comments VARICELLA ZOSTER IGG (AL) (BEAKER) (test znof=4476) 4.4 VARICELLA ZOSTER RESULT INTERPRETATIONS: <=0.8 Al Nonreactive: Presumed non-immune to VZV 0.9-1.0 Al Equivocal >=1.1 Al Reactive: Presumed immune to VZVCYTOMEGALOVIRUS ANTIBODY, [id number] 11:30:00* Test Item Value Reference Range Comments CYTOMEGALOVIRUS, IGG (BEAKER) (test odvx=2040) Positive Negative, Equivocal CMV IgG Result Interpretation: </=0.8 Al Negative 0.9-1.0 Al Equivocal >/=1.1 Al PositiveCYTOMEGALOVIRUS ANTIBODY, [id number] 11:30:00* Test Item Value Reference Range Comments CYTOMEGALOVIRUS IGM ANTIBODY (BEAKER) (test ijoy=7023) Negative Negative, Equivocal CMV IgM Result Interpretation: </=0.8 Al Negative 0.9-1.0 Al Equivocal > /=1.1 Al PositiveEBV ANTIBODY, [id number] 11:30:00* Test Item Value Reference Range Comments ANTHONY MACK VIRAL CAPSID ANTIGEN IGG (BEAKER) (test tbhl=6878) Positive Negative, Equivocal Anthony Mack Viral Capsid Antigen IgG Result Interpretation: </=0.8 Al Negative 0.9-1.0 Al Equivocal >/=1.1 Al PositiveEBV ANTIBODY, [id number] 11:30:00* Test Item Value Reference Range Comments ANTHONY MACK VIRAL CAPSID ANTIGEN IGM (BEAKER) (test pxvl=5981) Negative Negative, Equivocal Anthony Mack Viral Capsid Antigen IgM Result Interpretation: </=0.8 Al Negative 0.9-1.0 Al Equivocal >/=1.1 Al PositiveHEPATITIS B SURFACE ANTIBODY 2018-11-01 11:07:00* Test Item Value Reference Range Comments HEPATITIS B SURFACE ANTIBODY (BEAKER) (test ctax=188) < mIU/mL <8.0 HEPATITIS B SURFACE [id number] 11:00:00* Test Item Value Reference Range Comments HEPATITIS B SURFACE ANTIGEN (2) (BEAKER) (test befp=2742) Nonreactive Nonreactive HEPATITIS B CORE ANTIBODY, [id number] 11:00:00* Test Item Value Reference Range Comments HEPATITIS B CORE IGM ANTIBODY (BEAKER) (test fskb=067) Nonreactive Nonreactive HEPATITIS C [id number] 11:00:00* Test Item Value Reference Range Comments HEPATITIS C ANTIBODY (BEAKER) (test gnog=368) Nonreactive Nonreactive HIV-1 ANTIGEN WITH HIV-1/2 [id number] 11:00:00* Test Item Value Reference Range Comments HIV-1 ANTIGEN WITH HIV 1\T\2 ANTIBODY (2) (BEAKER) (test nwxn=0808) Nonreactive Nonreactive PTH, [id number] 10:46:00* Test Item Value Reference Range Comments PARATHYROID HORMONE INTACT (BEAKER) (test huqw=118) 618.4 pg/mL 8.5-72.5 COMPREHENSIVE METABOLIC [id number] 10:45:00* Test Item Value Reference Range Comments TOTAL PROTEIN (BEAKER) (test srrx=540) 7.1 gm/dL 6.0-8.3 ALBUMIN (BEAKER) (test qmwn=6913) 3.8 g/dL 3.5-5.0 ALKALINE PHOSPHATASE (BEAKER) (test klsa=397) 169 U/L 40-150 BILIRUBIN TOTAL (BEAKER) (test annc=304) 0.7 mg/dL 0.2-1.2 SODIUM (BEAKER) (test byqc=477) 133 meq/L 136-145 POTASSIUM (BEAKER) (test ildq=124) 3.8 meq/L 3.5-5.1 CHLORIDE (BEAKER) (test bemp=821) 91 meq/L 98-107 CO2 (BEAKER) (test driv=784) 27 meq/L 22-29 BLOOD UREA NITROGEN (BEAKER) (test ayuf=468) 63 mg/dL 7-21 CREATININE (BEAKER) (test nvwf=065) 8.09 mg/dL 0.57-1.25 GLUCOSE RANDOM (BEAKER) (test kdoc=830) 545 mg/dL 70-105 CALCIUM (BEAKER) (test yyzd=143) 9.1 mg/dL 8.4-10.2 AST (SGOT) (BEAKER) (test wxzp=680) 21 U/L 5-34 ALT (SGPT) (BEAKER) (test gogw=994) 23 U/L 6-55 EGFR (BEAKER) (test efsz=8976) 5 mL/min/1.73 sq m ESTIMATED GFR IS NOT ACCURATE CREATININE CLEARANCE IN PREDICTING GLOMERULAR FILTRATION RATE. ESTIMATED GFR IS NOT APPLICABLE FOR DIALYSIS PATIENTS. URIC [id number] 10:30:00* Test Item Value Reference Range Comments URIC ACID (BEAKER) (test rqmm=232) 5.6 mg/dL 2.6-7.2 [id number] 10:30:00* Test Item Value Reference Range Comments PHOSPHORUS (BEAKER) (test vghp=617) 7.2 mg/dL 2.3-4.7 GAMMA GLUTAMYL TRANSFERASE (GGT)2018-11-01 10:30:00* Test Item Value Reference Range Comments GAMMA GLUTAMYL TRANSFERASE (BEAKER) (test dics=563) 91 U/L 9-64 LACTATE DEHYDROGENASE (LDH)2018-11-01 10:30:00* Test Item Value Reference Range Comments LACTATE DEHYDROGENASE (BEAKER) (test xuip=782) 224 U/L 125-220 CBC W/PLT COUNT & AUTO [id number] 10:16:00* Test Item Value Reference Range Comments WHITE BLOOD CELL COUNT (BEAKER) (test dqfb=120) 8.8 K/ L 3.5-10.5 RED BLOOD CELL COUNT (BEAKER) (test zowe=689) 2.96 M/ L 3.93-5.22 HEMOGLOBIN (BEAKER) (test rxrw=450) 10.0 GM/DL 11.2-15.7 HEMATOCRIT (BEAKER) (test vtwi=376) 30.0 % 34.1-44.9 MEAN CORPUSCULAR VOLUME (BEAKER) (test lzwn=137) 101.4 fL 79.4-94.8 MEAN CORPUSCULAR HEMOGLOBIN (BEAKER) (test pbcx=773) 33.8 pg 25.6-32.2 MEAN CORPUSCULAR HEMOGLOBIN CONC (BEAKER) (test teyy=309) 33.3 GM/DL 32.2-35.5 RED CELL DISTRIBUTION WIDTH (BEAKER) (test hrfp=577) 11.8 % 11.7-14.4 PLATELET COUNT (BEAKER) (test qfjt=110) 202 K/CU MM 150-450 MEAN PLATELET VOLUME (BEAKER) (test vwvw=436) 10.7 fL 9.4-12.3 NUCLEATED RED BLOOD CELLS (BEAKER) (test qbcg=025) 0 /100 WBC 0-0 NEUTROPHILS RELATIVE PERCENT (BEAKER) (test vukm=424) 81 % LYMPHOCYTES RELATIVE PERCENT (BEAKER) (test prti=014) 11 % MONOCYTES RELATIVE PERCENT (BEAKER) (test vdjc=172) 5 % EOSINOPHILS RELATIVE PERCENT (BEAKER) (test xfiz=360) 2 % BASOPHILS RELATIVE PERCENT (BEAKER) (test phme=221) 1 % NEUTROPHILS ABSOLUTE COUNT (BEAKER) (test zgws=386) 7.11 K/ L 1.56-6.13 LYMPHOCYTES ABSOLUTE COUNT (BEAKER) (test ofnf=150) 0.98 K/ L 1.18-3.74 MONOCYTES ABSOLUTE COUNT (BEAKER) (test ukxg=255) 0.44 K/ L 0.24-0.36 EOSINOPHILS ABSOLUTE COUNT (BEAKER) (test qtny=592) 0.18 K/ L 0.04-0.36 BASOPHILS ABSOLUTE COUNT (BEAKER) (test gwyk=026) 0.05 K/ L 0.01-0.08 IMMATURE GRANULOCYTES-RELATIVE PERCENT (BEAKER) (test kygw=3538) 1 % 0-1 [id number] 10:13:00* Test Item Value Reference Range Comments PROTIME (BEAKER) (test wfjg=790) 12.9 seconds 11.7-14.7 INR (BEAKER) (test iifb=158) 1.0 <=5.9 PARTIAL THROMBOPLASTIN TIME (BEAKER) (test dwfh=623) 30.5 seconds 22.5-36.0 RECOMMENDED COUMADIN/WARFARIN INR THERAPY RANGESSTANDARD DOSE: 2.0 - 3.0 Inclu dashawn: PROPHYLAXIS for venous thrombosis, systemic embolization; TREATMENT for kathryn ous thrombosis and/or pulmonary embolus.HIGH RISK: Target INR is 2.5-3.5 for pat ients with mechanical heart valves.XR Foot 2 Views [id number] 13:02:17 Patient: DAYO GARDINER am Date/Time07/19/2018 12:52 CDTReason for Exampain;Pain (please specify)ReportDi ctation location V57Hlzyv foot 3 views, left foot 2 viewsHISTORY: Pain following trauma.COMMENT: The bones appear slightly demineralized. There is no acute frac ture or dislocation. No focal lesion or destructive process seen. Vascular calci fications are noted. There are small calcaneal spurs..IMPRESSION:No acute findin gs. Final Dictated by: MD Pereyra Phebe CDictated DT/TM: 07/19/2018 1:01 pmSigned by: MD Pereyra Phebe CSigned (Electronic Signature): 07/19/2018 1 :02 pmXR Foot Complete 3+ Views [id number] 13:02:17Patient: DAYO GARDINER Date/Time07/19/2018 12:52 CDTReason for Exampain;TraumaReportDictation location R14Upfkt foot 3 views, left foot 2 viewsHISTORY: Pain following trauma.COMMENT: The bones appear slightly demineralized. There is no acute fracture or disloca tion. No focal lesion or destructive process seen. Vascular calcifications are n oted. There are small calcaneal spurs..IMPRESSION:No acute findings. Final Dictated by: MD Pereyra Phebe CDictated DT/TM: 07/19/2018 1:01 pmSigned b y: MD Hafsa, Lauren CSigned (Electronic Signature): 07/19/2018 1:02 pm
[2019-03-19] MEDS ORDERED: HYDROCODONE/APAP 5MG-325MG TAB PO NR (10:30)
[2019-03-19] MEDS ORDERED: CLONIDINE HCL 0.2 MG TAB PO NR (11:45)
--- NOTE | 2019-03-19 11:47 | Diagnostic Imaging Report ---
ANKLE 3 VIEW RT - HOPD - 3 views HISTORY: Pain COMPARISON: None available. FINDINGS: See impression. IMPRESSION: Generalized demineralization. Mildly displaced intra-articular fracture of the distal right fibula. Ankle mortise is intact. Vascular calcifications. Signed by: Dr. Luke Davis MD on 03/19/2019 11:44 AM
--- NOTE | 2019-03-19 11:49 | Diagnostic Imaging Report ---
FOOT 2VIEW RT - HOPD - 2 views HISTORY: Pain COMPARISON: None available. FINDINGS: Generalized demineralization. No acute displaced fracture. Osseous alignment is within normal limits. The soft tissues appear unremarkable. Vascular calcification. IMPRESSION: No acute fracture or dislocation of the right foot. Mildly displaced distal fibular fracture. Signed by: Dr. Luke Davis MD on 03/19/2019 11:46 AM
[2019-03-19] MEDS ORDERED: CLONIDINE HCL 0.1 MG TAB ONE (12:12)
[2019-03-19] MEDS ORDERED: HYDROCODONE/APAP 5MG-325MG TAB ONE (12:15)
[2019-03-19 13:31] VITALS: BP 146/71
== END 2019-03-19 13:10 | disposition home or self-care (01) ==
LOC: FSED 09:53
DX: S82.424A Nondisplaced transverse fracture of shaft of right fibula, initial encounter for closed fracture (principal); X50.1XXA Overexertion from prolonged static or awkward postures, initial encounter; Y92.008 Other place in unspecified non-institutional (private) residence as the place of occurrence of the external cause; I10 Essential (primary) hypertension; J02.0 Streptococcal pharyngitis
CPT/HCPCS: 83518; 99284

== ENCOUNTER 2019-12-11 15:05 | Emergency (ER) | payer MEDICARE ==
[~2019-12-11] VITALS: Ht 162.6 cm; Wt 103.4 kg
--- NOTE | 2019-12-11 16:33 | NUR ---
Recieved pt in rm 8, pt reports extreme pain to Left flank. Patient reports pain radiates to abdomen when bending over. Patient reports she only urinates very little and occurs maybe every 2 days. Patient reports she is on fluid restriction due to ESRD. Patient received dialysis today. Noted AV graft to L forearm, +bruit and thrill.
--- NOTE | 2019-12-11 17:44 | NUR ---
PIV inserted to BINDU, blood specimens obtained and sent. Awaiting CT scan.
[2019-12-11 17:52] LABS: BASOPHILS # (AUTO) 0.1 (0.0-0.1); BASOPHILS % 0.7 % (0.0-1.0); EOSINOPHILS # (AUTO) 0.2 (0.0-0.4); EOSINOPHILS % 2.9 % (0.0-6.0); HEMOGLOBIN 10.6 g/dL (12.0-16.0); LYMPHOCYTES # (AUTO) 0.9 (1.0-3.2); LYMPHOCYTES % 10.9 % (18.0-39.1); MEAN CORPUSCULAR HEMOGLOBIN 33.1 pg (28-32); MEAN CORPUSCULAR HGB CONC 33.1 g/dL (31-35); MONOCYTES # (AUTO) 0.4 (0.2-0.8); MONOCYTES % 5.3 % (4.4-11.3); NEUTROPHILS # (AUTO) 6.4 (2.1-6.9); NEUTROPHILS % 79.2 % (38.7-80.0); PLATELET COUNT 222 x10e3/uL (140-360); RED CELL DISTRIBUTION WIDTH 12.9 % (11.7-14.4)
[2019-12-11 18:04] LABS: ALBUMIN 3.3 g/dL (3.5-5.0); ANION GAP 16.1 mmol/L (8-16); CALCIUM 9.1 mg/dL (8.4-10.2); CREATININE, SERUM 5.11 mg/dL (0.57-1.11); POTASSIUM 4.1 mmol/L (3.5-5.1)
[2019-12-11] MEDS ORDERED: MORPHINE SULFATE 2 MG/ML SYR 1ML IV STA (18:34)
[2019-12-11] MEDS ORDERED: INSULIN REGULAR, HUMAN 100 UNIT/1 ML 3ML VIAL IV ONE (18:45)
[2019-12-11] MEDS ORDERED: SODIUM CHLORIDE 0.9% 500ML 500 ML IV ONE (18:45)
--- NOTE | 2019-12-11 19:05 | NUR ---
Patient given 4mg morphine sivp for pain, 10 units regular insulin IV and 500ml NS bolus initiated. Awaiting CT scan. Nursing report given to Mark ESTRADA.
[2019-12-11] MEDS ORDERED: INSULIN REGULAR, HUMAN 100 UNIT/1 ML 3ML VIAL SQ ONE (20:15)
--- NOTE | 2019-12-11 20:27 | Diagnostic Imaging Report ---
EXAMINATION: CT of the abdomen and pelvis without contrast. TECHNIQUE: Spiral CT images of the abdomen and pelvis were performed from the lung bases to the lesser trochanters. No intravenous contrast was given due to decreased GFR, patient on dialysis. Coronal and sagittal reformatted images were obtained. COMPARISON: None. CLINICAL HISTORY:Left flank pain DISCUSSION: ABSENCE OF INTRAVENOUS CONTRAST DECREASES SENSITIVITY FOR DETECTION OF FOCAL LESIONS AND VASCULAR PATHOLOGY. ABDOMEN/PELVIS: LOWER THORAX: Left-sided qhsdd-uq-qbfldmnm pleural effusion, which is partly loculated and associated left lower lobe atelectasis. Linear subsegmental atelectasis versus scarring in the lateral right lower lobe. Atherosclerotic calcification of the coronary arteries. HEPATOBILIARY: No focal hepatic lesions. No intra or extrahepatic biliary ductal dilation. GALLBLADDER: No radio-opaque stones or sludge. No wall thickening. SPLEEN: No splenomegaly. PANCREAS: No focal masses or ductal dilatation. ADRENALS: 1.3 cm hypodense lesion in the left adrenal gland (series 3, image 44), which measures less than 10 HU on this noncontrast exam. Right adrenal glands unremarkable. KIDNEYS/URETERS: Atrophic bilateral kidneys. Extensive renal vascular calcifications. No stones, hydronephrosis or evidence of obstruction. No contour abnormalities. No perinephric stranding. PELVIC ORGANS/BLADDER: Bladder is unremarkable. The is absent. No adnexal masses. PERITONEUM/RETROPERITONEUM: No free air or fluid. LYMPH NODES: No intra-abdominal,retroperitoneal, pelvic or inguinal lymphadenopathy. VESSELS: Extensive atherosclerotic calcification of the aortic branches. Moderate atherosclerotic calcification of the abdominal aorta. GI TRACT: No bowel dilation or evidence of obstruction. No pericolonic inflammatory changes. Appendix is well identified and normal in caliber. BONES AND SOFT TISSUES: No aggressive lytic lesions. Mild generalized soft tissue edema. IMPRESSION: 1. No renal, ureteral or bladder calculi. No hydronephrosis or obstruction. 2. Atrophic kidneys, consistent with history of end-stage renal disease. No contour abnormalities. 3. Left-sided mpuwm-vf-palsjpan pleural effusion, which is partly loculated, with associated left lower lobe atelectasis. 4. 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 No further diagnostic or follow-up imaging is indicated. Signed by: Dr. Adams Milligan M.D. on 12/11/2019 8:25 PM
== END 2019-12-11 21:30 | disposition home or self-care (01) ==
LOC: ER 15:05
DX: J90 Pleural effusion, not elsewhere classified (principal); M54.5 Low back pain; I12.0 Hypertensive chronic kidney disease with stage 5 chronic kidney disease or end stage renal disease; E11.22 Type 2 diabetes mellitus with diabetic chronic kidney disease; N18.6 End stage renal disease; Z99.2 Dependence on renal dialysis; E78.5 Hyperlipidemia, unspecified; J45.909 Unspecified asthma, uncomplicated
CPT/HCPCS: 36415; 74176; 80053; 82948; 85025; 99283; J1817; J2270; J7040

== ENCOUNTER 2020-03-20 16:24 | Emergency (ER) | payer MEDICARE ==
[~2020-03-20] VITALS: Ht 162.6 cm; Wt 103.4 kg
[2020-03-20] MEDS ORDERED: HYDRALAZINE HCL 20 MG/ML VIAL IV STA ×2 (17:06→19:43)
--- OUTSIDE RECORDS SUMMARY | 2020-03-20 17:07 | XMS REPORT | Clinical Summary ---
Author Author [facility] Address Unknown Phone Unavailable Care Team Providers Care Ssrs Developer Name Role Phone Asked, No Pcp PCP Unavailable Allergies Comments Active Allergy Reactions Severity Noted Date Amoxicillin 10/26/2016 Penicillins 10/26/2016 Medications Not on file Active Problems Not on file Social History Date Tobacco Use Types Packs/Day Years Used Never Smoker Drinks/Week oz/Week Comments Alcohol Use No Sex Assigned at Date Recorded Not on file Industry Job Start Date Occupation Not on file Not on file Not on file Travel End Travel History Travel Start No recent travel history available. Last Filed Vital Signs Not on file Plan of Treatment Health Maintenance Due Date Last Done Comments DIABETIC RETINAL EYE EXAM 1965 DIABETIC FOOT EXAM 1975 URINE MICROALBUMIN 1975 CERVICAL CANCER SCREENING 1986 BREAST CANCER SCREENING 2015 COLONOSCOPY SCREENING 2015 SHINGLES VACCINES (#1) 2015 INFLUENZA VACCINE 05/18/2020 Results Not on fileafter 03/20/2019 Insurance Type Payer Benefit Subscriber ID Effective Phone Address Plan / Dates Group Medicare MEDICARE MEDICARE xxxxxxxxxx 2013-P [place], PART A AND resent [place] B Medicaid MEDICAID MEDICAID xxxxxxxxx 2016- Present [id number] Advance Directives For more information, please contact: [phone] Patient Nurse'S Companion Explanation Type Date Recorded Advance Directives, Living Will and Medical Power of Curing Press Operator
--- OUTSIDE RECORDS SUMMARY | 2020-03-20 17:07 | XMS REPORT | Clinical Summary ---
Author Author [facility] Address Unknown Phone Unavailable Care Team Providers Care Powder Truck Driver Name Role Phone Mike Forbes PCP Unavailable Pedro Castillo Unavailable Francisco Monroy MD 3 Unavailable Leslie Iglesias MD 3 Unavailable Allergies Comments [...] . Active FA-vit Take 1 tablet 0 Bcomp&N-iwffahbj-oiea by mouth 2 (FOLIC ACID-VITAMIN B (two) times COMPLEX-VITAMIN daily . [id number]) 3-70-15 mg-mcg-mg Tab Active omega-3 fatty acids-fish [...] 0 tablet mouth 3 (three) times daily. Active Problems Problem Noted Date ESRD (end stage renal disease) 05/21/2014 Last Assessment & Plan: In evaluation. Weight loss management Encounters Care Team Description Date Type Specialty Eusebia Magaña RN 02/13/2020 Documentation Transplant Eusebia Magaña RN 02/13/2020 Abstract Transplant Elizabeth Reddy 01/24/2020 Documentation Transplant Eusebia Magaña RN 12/12/2019 Abstract Transplant after 03/20/2019 Social History Date Tobacco Use Types Packs/Day [...] Date Last Done Comments BREAST CANCER SCREENING 1965 COLON CANCER SCREENING 1965 ANNUAL FOBT PNEUMOCOCCAL VACCINE 2-64 1971 YEARS AT RISK (1 of 3 - PCV13) CERVICAL CANCER SCREENING 1986 PAP ONLY (Age 21-65) MEDICARE ANNUAL WELLNESS 10/19/2014 (YEAR 2 or FIRST YEAR if no IPPE) HEMOGLOBIN A1C 01/30/2019 11/01/2018, 014 INFLUENZA VACCINE (Season 06/18/2020 Ended) Results Not on fileafter 03/20/2019 Insurance Payer Benefit Subscriber ID Type Phone Address Plan / Group MEDICARE MEDICARE A xxxxxxxxxxx Medicare B MEDICAID MEDICAID xxxxxxxxx Medicaid OF [place] [phone] [id number] (Home) [place] [id number]
--- OUTSIDE RECORDS SUMMARY | 2020-03-20 17:08 | XMS REPORT | Continuity of Care Document ---
Author Author [facility] t Organization [facility] Address [address] [place] [address] Phone Unavailable Care Team Providers Care Gun Tester Name Role Phone NONSTAFF PCP Unavailable Hina GARCIA Attphys Unavailable Hina WALLACE TOURE Attphys Unavailable NICK, LEWIS BHAMIDIPATI Attphys Unavailable AFUWAPE, LUKUMAN Attphys Unavailable HOSSAIN, MANCINI Attphys Unavailable ADERINTO, OLUMAYOWA Attphys Unavailable AFUWAPE, LUKUMAN Admphys Unavailable HOSSAIN, MANCINI Admphys Unavailable ADERINTO, OLUMAYOWA Admphys Unavailable Payers Payer Name Policy Type Policy Number Effective Date Expiration Date S ource Medicare A & B [id number] 2013 00:00:00 [facility] TM [id number] 2017 00:00:00 [facility] Problems This patient has no known problems. Allergies, Adverse Reactions, Alerts Allergy Name Allergy Type Status Severity Reaction(s) Onset Date Inacti ve Date Treating Clinician Comments Source Penicillin Allergy to Substance Active Severe ANAPHYLAXIS 2019-12-11 0 0:00:00 [facility] Glyburide Propensity to adverse reactions Active Moderate PALP ATATIONS 2019-12-11 00:00:00 [facility] Allergy to Substance Active 2019-12-11 00:00:00 [facility] coconut Allergy to Substance Active Moderate 2019-12-11 00:00:00 [facility] Penicillins DA Active U 2018-05-30 00:00:00 [facility] glyburide DA Active SV 2018-05-30 00:00:00 [facility] Amoxicillin Propensity to adverse reactions to drug Active 2016-10-26 00:00:00 Orlando guerra Penicillins Propensity to adverse reactions to drug Active 2016-10-26 00:00:00 Orlando guerra Social History Social Habit Start Date Stop Date Quantity Comments Source Sex Assigned At Tavares hwang Maria G Alcohol intake 2016-10-26 00:00:00 2016-10-26 00:00:00 Current non-drinker of alcohol (finding) Orlando Cummins Smoking Status Start Date Stop Date Source Never smoker Orlando guerra Medications This patient has no known medications. Procedures Procedure Date / Time Performed Performing Clinician [facility] e CT of abdomen and pelvis without contrast 2019-12-11 00:00:00 ROSEMARY HURTADO [facility] APPLICATION LOWER LEG SPLINT 2019-03-19 00:00:00 JAMES WALLACE [facility] Plan of Care Planned Activity Planned Date Details Comments Source Future Scheduled Test 2020-05-18 00:00:00 INFLUENZA VACCINE [code = INFLUENZA VACCINE] [facility] Scheduled Test 2015 00:00:00 BREAST CANCER SCRE ENING [code = BREAST CANCER SCREENING] [facility] Future Scheduled Test 2015 00:00:00 COLONOSCOPY SCREEN ING [code = COLONOSCOPY SCREENING] [facility] Scheduled Test 2015 00:00:00 SHINGLES VACCINES (#1) [code = SHINGLES VACCINES (#1)] [facility] Future Scheduled Test 1986 00:00:00 Screening for yareli gnant neoplasm of cervix (procedure) [code = 470276181] [facility] Future Scheduled Test 1975 00:00:00 DIABETIC FOOT EXAM [code = DIABETIC FOOT EXAM] [facility] Future Scheduled Test 1975 00:00:00 URINE MICROALBUMIN [code = URINE MICROALBUMIN] [facility] Future Scheduled Test 1965 00:00:00 DIABETIC RETINAL E YE EXAM [code = DIABETIC RETINAL EYE EXAM] Orlando Cummins Encounters Start Date/Time End Date/Time [facility] Source 2019-12-11 15:05:00 2019-12-11 21:30:00 Departed Emergency Room 1 PARAM GARCIA [facility] [id number] [facility] 2019-03-19 09:53:00 2019-03-19 13:10:00 Departed Emergency Room 1 TEJAL WALLACE [facility] [id number] [facility] 2018-06-03 00:24:00 2018-06-03 03:00:00 Departed Emergency Room [facility] [id number] [facility] 2018-06-02 22:24:00 2018-06-02 23:20:00 Departed Emergency Room [facility] [id number] [facility] 2017-12-01 11:50:00 2017-12-01 11:50:00 Emergency E ALEX LEVY AN [facility] MED [id number] [facility] 2017-10-30 10:20:00 2017-10-30 10:20:00 Emergency E FATOU GERMAIN [facility] MED [id number] [facility] 2017-06-10 16:45:00 2017-06-10 16:45:00 Outpatient [facility] [id number] [facility] Results Test Description Test Time Test Comments Results Result Comments Source XR Chest 1 View Frontal 2019-12-21 16:51:32 Swati ent: DAYO GARDINER Date/Time12/21/2019 16:44 CSTReason for ExamChest painReportExam: Chest portable erectLocation: H 12HISTORY: Chest painComparison: 10/25/2019.Findings:A a small to moderate sized left pleural effusion is present with some atelectasis in the left lung base. The remainder of the lungs is clear. The heart size is enlarged. Atherosclerosis involves the aorta. The mediastinal silhouette is unremarkable. The bony thorax is intact with degenerative changes noted.Impression:Small to moderate sized left pleural effusion. Final Dictated by: MD Emanuel Francesco MDictated DT/TM: 12/21/2019 4:50 pmSigned by: MD Emanuel Francesco MSigned (Electronic Signature): 12/21/2019 4:[address] ABDOMEN/PELVIS WO 2019-12-11 20:20:00 [place] [id number] Patient Name: DAYO GARDINER MR #: [id number] : 1965 Age/Sex: 54/F Req #: [id number] Adm Physician: Ordered by: ROSEMARY POLLOCK NP Report #: [id number] Location: ER Room/Bed: Procedure: [id number] CT/CT ABDOMEN/PELVIS WO Exam Date: Exam Time: REPORT STATUS: Signed EXAMINATION: CT of the abdomen and pelvis without contrast. TECHNIQUE: Spiral CT images of the abdomen and pelvis were performed from the lung bases to the lesser trochanters. No intravenous contrast was given due to decreased GFR, patient on dialysis. Coronal and sagittal reformatted images were obtained. COMPARISON: None. CLINICAL HISTORY:Left flank pain DISCUSSION: ABSENCE OF INTRAVENOUS CONTRAST DECREASES SENSITIVITY FOR DETECTION OF FOCAL LESIONS AND VASCULAR PATHOLOGY. ABDOMEN/PELVIS: LOWER THORAX: Left-sided jqyen-ds-vlnzitnq pleural effusion, which is partly loculated and associated left lower lobe atelectasis. Linear subsegmental atelectasis versus scarring in the lateral right lower lobe. Atherosclerotic calcification of the coronary arteries. HEPATOBILIARY: No focal hepatic lesions. No intra or extrahepatic biliary ductal dilation. GALLBLADDER: No radio-opaque stones or sludge. No wall thickening. SPLEEN: No splenomegaly. PANCREAS: No focal masses or ductal dilatation. ADRENALS: 1.3 cm hypodense lesion in the left adrenal gland (series 3, image 44), which measures less than 10 HU on this noncontrast exam. Right adrenal glands unremarkable. KIDNEYS/URETERS: Atrophic bilateral kidneys. Extensive renal vascular calcifications. No stones, hydronephrosis or evidence of obstruction. No contour abnormalities. No perinephric stranding. PELVIC ORGANS/BLADDER: Bladder is unremarkable. The is absent. No adnexal masses. PERITONEUM/RETROPERITONEUM: No free air or fluid. LYMPH NODES: No intra-abdominal,retroperitoneal, pelvic or inguinal lymphadenopathy. VESSELS: Extensive atherosclerotic calcification of the aortic branches. Moderate atherosclerotic calcification of the abdominal aorta. GI TRACT: No bowel dilation or evidence of obstruction. No pericolonic inflammatory changes. Appendix is well identified and normal in caliber. BONES AND SOFT TISSUES: No aggressive lytic lesions. Mild generalized soft tissue edema. IMPRESSION: 1. No renal, ureteral or bladder calculi. No hydronephrosis or obstruction. 2. Atrophic kidneys, consistent with history of end-stage renal disease. No contour abnormalities. 3. Left-sided qalaa-jc-mljijasv pleural effusion, which is partly loculated, with associated left lower lobe atelectasis. 4. 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 No further diagnostic or follow-up imaging is indicated. Signed by: Dr. Adams Steiner M.D. on 12/11/2019 8:25 PM Dictated By: ADAMS STEINER MD 24 Transcribed By: ANDRY on 12/11/192024 COPY TO: ROSEMARY POLLOCK NP Bedside Glucose 2019-12-11 19:46:00 Test Item Bedside Glucose (test code = 29162-1) 334 70-120 H Meter ID: [id number] [facility] Medical Centerodium Level 2019-12-11 18:07:00* Test Item Value Reference Range Interpretation Comments Sodium Level (test code = 2951-2) 137 136-145 [facility] [id number] 18:07:00* Test Item Value Reference Range Interpretation Comments Potassium Level (test code = 2823-3) 4.1 3.5-5.1 [facility] CenterChloride [id number] 18:07:00* Test Item Value Reference Range Interpretation Comments Chloride Level (test code = 2075-0) 98 98-107 [facility] CenterCarbon Dioxide Ibbrw6734-24-08 18:07:00* Test Item Value Reference Range Interpretation Comments Carbon Dioxide Level (test code = 2028-9) 27 22-29 [facility] CenterAnion [id number] 18:07:00* Test Item Value Reference Range Interpretation Comments Anion Gap (test code = 16391-0) 16.1 8-16 H [facility] CenterBlood Urea Eayubgfk6012-65-43 18:07:00* Test Item Value Reference Range Interpretation Comments Blood Urea Nitrogen (test code = 3094-0) 25 7-26 [facility] CenterCreatinine2020-02-24 18:07:00* Test Item Value Reference Range Interpretation Comments Creatinine (test code = 2160-0) 5.11 0.57-1.11 H [facility] CenterBUN/Creatinine Cmxrv7798-90-01 18:07:00* Test Item Value Reference Range Interpretation Comments BUN/Creatinine Ratio (test code = 3097-3) 5 6-25 L [facility] CenterEstimat Glomerular Filtration Rate 2019-12-11 18:07:00* Test Item Value Reference Range Interpretation Comments Estimat Glomerular Filtration Rate (test code = 455137502) 9 >60 L Ranges were taken from the National Kidney Disease Education Program and the [facility] [employer] literature.Reference ranges:60 or greater: Brchqm83-17 ( for 3 consecutive months): Chronic kidney disease 15 or less: Kidney failureHereford Regional Medical CenterGlucose Gidcf8550-32-15 18:07:00* Test Item Value Reference Range Interpretation Comments Glucose Level (test code = SOW0342) 464 74-118 HH Results repeated and called to RALPH BURKS at 1806 on 12/11/19 by LAUREL JOSE . Read back and verified.[facility] CenterCalcium Level 2019-12-11 18:07:00* Test Item Value Reference Range Interpretation Comments Calcium Level (test code = 13586-0) 9.1 8.4-10.2 [facility] CenterTotal Yuepqkngj3857-78-27 18:07:00* Test Item Value Reference Range Interpretation Comments Total Bilirubin (test code = 1975-2) 0.5 0.2-1.2 [facility] CenterAspartate Amino Transf (AST/SGOT) 2019-12-11 18:07:00* Test Item Value Reference Range Interpretation Comments Aspartate Amino Transf (AST/SGOT) (test code = Aspartate Amino Transf (AST/SGOT)) 24 5-34 [facility] CenterAlanine Aminotransferase (ALT/SGPT) 2019-12-11 18:07:00* Test Item Value Reference Range Interpretation Comments Alanine Aminotransferase (ALT/SGPT) (test code = 1742-6) 16 0-55 [facility] CenterTotal Aftuugy7842-09-79 18:07:00* Test Item Value Reference Range Interpretation Comments Total Protein (test code = 2885-2) 6.7 6.5-8.1 [facility] CenterAlbumin2020-02-24 18:07:00* Test Item Value Reference Range Interpretation Comments Albumin (test code = 1751-7) 3.3 3.5-5.0 L [facility] CenterGlobulin2020-02-24 18:07:00* Test Item Value Reference Range Interpretation Comments Globulin (test code = 85759-9) 3.4 2.3-3.5 [facility] CenterAlbumin/Globulin Mlwoh6751-10-83 18:07:00 * Test Item Value Reference Range Interpretation Comments Albumin/Globulin Ratio (test code = 1759-0) 1.0 0.8-2.0 [facility] CenterAlkaline Ozrmsmomshm9923-94-37 18:07:00* Test Item Value Reference Range Interpretation Comments Alkaline Phosphatase (test code = 6768-6) 182 40-150 H [facility] CenterWhite Blood Tnwxv1122-78-27 17:58:00* Test Item Value Reference Range Interpretation Comments White Blood Count (test code = 6690-2) 8.14 4.8-10.8 [facility] CenterRed Blood Obkmc1249-32-41 17:58:00* Test Item Value Reference Range Interpretation Comments Red Blood Count (test code = 789-8) 3.20 3.6-5.1 L [facility] CenterHemoglobin2020-02-24 17:58:00* Test Item Value Reference Range Interpretation Comments Hemoglobin (test code = 70458-8) 10.6 12.0-16.0 L [facility] CenterHematocrit2020-02-24 17:58:00* Test Item Value Reference Range Interpretation Comments Hematocrit (test code = 4544-3) 32.0 34.2-44.1 L [facility] CenterMean Corpuscular Qwubct3798-04-49 17:58:00* Test Item Value Reference Range Interpretation Comments Mean Corpuscular Volume (test code = 787-2) 100.0 81-99 H [facility] CenterMean Corpuscular Evtyiwozzo8518-71-06 17:58:00* Test Item Value Reference Range Interpretation Comments Mean Corpuscular Hemoglobin (test code = 785-6) 33.1 28-32 H [facility] CenterMean Corpuscular Hemoglobin Concent 2019-12-11 17:58:00* Test Item Value Reference Range Interpretation Comments Mean Corpuscular Hemoglobin Concent (test code = 786-4) 33.1 31-35 [facility] CenterRed Cell Distribution Svpfa4655-20-08 17:58:00* Test Item Value Reference Range Interpretation Comments Red Cell Distribution Width (test code = 33483-9) 12.9 11.7 -14.4 [facility] CenterPlatelet Kebph0205-42-52 17:58:00* Test Item Value Reference Range Interpretation Comments Platelet Count (test code = 777-3) 222 140-360 [facility] CenterNeutrophils (%) (Auto)2019-12-11 17:58:00 * Test Item Value Reference Range Interpretation Comments Neutrophils (%) (Auto) (test code = 22215-0) 79.2 38.7-80.0 [facility] CenterLymphocytes (%) (Auto)2019-12-11 17:58:00 * Test Item Value Reference Range Interpretation Comments Lymphocytes (%) (Auto) (test code = 736-9) 10.9 18.0-39.1 L [facility] CenterMonocytes (%) (Auto)2019-12-11 17:58:00* Test Item Value Reference Range Interpretation Comments Monocytes (%) (Auto) (test code = 5905-5) 5.3 4.4-11.3 [facility] CenterEosinophils (%) (Auto)2019-12-11 17:58:00 * Test Item Value Reference Range Interpretation Comments Eosinophils (%) (Auto) (test code = 713-8) 2.9 0.0-6.0 [facility] CenterBasophils (%) (Auto)2019-12-11 17:58:00* Test Item Value Reference Range Interpretation Comments Basophils (%) (Auto) (test code = 706-2) 0.7 0.0-1.0 [facility] CenterIM GRANULOCYTES %2019-12-11 17:58:00* Test Item Value Reference Range Interpretation Comments IM GRANULOCYTES % (test code = IM GRANULOCYTES %) 1.0 0.0- 1.0 [facility] CenterNeutrophils # (Auto)2019-12-11 17:58:00* Test Item Value Reference Range Interpretation Comments Neutrophils # (Auto) (test code = 751-8) 6.4 2.1-6.9 [facility] CenterLymphocytes # (Auto)2019-12-11 17:58:00* Test Item Value Reference Range Interpretation Comments Lymphocytes # (Auto) (test code = 13555-4) 0.9 1.0-3.2 L [facility] CenterMonocytes # (Auto)2019-12-11 17:58:00* Test Item Value Reference Range Interpretation Comments Monocytes # (Auto) (test code = 742-7) 0.4 0.2-0.8 [facility] CenterEosinophils # (Auto)2019-12-11 17:58:00* Test Item Value Reference Range Interpretation Comments Eosinophils # (Auto) (test code = 711-2) 0.2 0.0-0.4 [facility] CenterBasophils # (Auto)2019-12-11 17:58:00* Test Item Value Reference Range Interpretation Comments Basophils # (Auto) (test code = 704-7) 0.1 0.0-0.1 [facility] CenterAbsolute Immature Granulocyte (auto 2019-12-11 17:58:00* Test Item Value Reference Range Interpretation Comments Absolute Immature Granulocyte (auto (chago t code = Absolute Immature Granulocyte (auto) 0.08 0-0.1 [facility] CenterMG Mammo Digital Diagnostic Right 2019-11-13 15:51:27Patient: DAYO GARDINER Date/Time11/13/2019 14:06 CSTReason for ExamR92.8ReportDictation Location [id number]: Diagnostic mammogram with Tomosynthesis and right breast ultrasound for 6 month follow-up of right breast noduleCOMPARISON: 03/30/2019Routine views of the right breast were obtained and interpreted with the aid of CAD. 2-D and 3-D digital mammography was performed with the [employer] digital breast tomosynthesis unitCOMMENT: Heterogeneously dense fibroglandular tissue is present with stable oval density in the inferior right breast. No new mass or distortion is seen. Stable benign predominantly vascular calcifications.Ultrasound performed the same day of the right breast including all 4 quadrants, retroareolar region and axilla is compared to 03/30/2019. There is stable hypoechoic solid nodule at the 8:00 position 3 cm from the nipple measuring 2 x 0.6 x 1.6 cm most compatible with a fibroadenoma. Additional benign findings of small cysts at the 8:00 position, 11 and 1:00 positions, subcentimeter in size.IMPRESSION:1. 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 BI-RADS CATEGORY:ACR- 2 BENIGN FINDINGSRECOMMENDATION: Resume yearly screening mammog iris [facility] Services AccreditationFDA CertifiedBoard Certified Radiologists(ARRT ) Registered Mammography TechnologistsNOTE:1. A negative x-ray report should no t delay biopsy if a dominant or clinically suspicious mass is present. 4 to 8% of cancers are not identified by x-ray.2. A negative report may reinforce clini rasta impression.3. Adenosis and dense breast may obscure an underlying neoplasm. 4. False positive results average 6 to 10% Final Dictated by: MD Pereyra Phebe CDictated DT/TM: 11/13/2019 3:45 pmSigned by: MD Pereyra Phebe CSign ed (Electronic Signature): 11/13/2019 3:51 pmUS Breast Complete Sxlic9782-83-79 15:51:27Patient: DAYO GARDINER Date/Time11/13/2019 14:51 CSTReason for ExamR92.8ReportDictation Location [id number]: Diagnostic mammogram with Tomosynthesis and right breast ultrasound for 6 month follow-up of right breast noduleCOMPARISON: 03/30/2019Routine views of the right breast were obtained and interpreted with the aid of CAD. 2-D and 3-D digital mammography was performed with the [employer] digital breast tomosynthesis unitCOMMENT: Heterogeneously dense fibroglandular tissue is present with stable oval density in the inferior right breast. No new mass or distortion is seen. Stable benign predominantly vascular calcifications.Ultrasound performed the same day of the right breast including all 4 quadrants, retroareolar region and axilla is compared to 03/30/2019. There is stable hypoechoic solid nodule at the 8:00 position 3 cm from the nipple measuring 2 x 0.6 x 1.6 cm most compatible with a fibroadenoma. Additional benign findings of small cysts at the 8:00 position, 11 and 1:00 positions, subcentimeter in size.IMPRESSION:1. 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 BI-RADS CATEGORY:ACR- 2 BENIGN FINDINGSRECOMMENDATION: Resume yearly screening mammog iris [facility] Services AccreditationFDA CertifiedBoard Certified Radiologists(ARRT ) Registered Mammography TechnologistsNOTE:1. A negative x-ray report should no t delay biopsy if a dominant or clinically suspicious mass is present. 4 to 8% of cancers are not identified by x-ray.2. A negative report may reinforce clini rasta impression.3. Adenosis and dense breast may obscure an underlying neoplasm. 4. False positive results average 6 to 10% Final Dictated by: MD Pereyra Phebe CDictated DT/TM: 11/13/2019 3:45 pmSigned by: MD Pereyra Phebe CSign ed (Electronic Signature): 11/13/2019 3:51 pmTroponin [id number] 01:34:48* Test Item Value Reference Range Interpretation Comments Troponin-T (test code = Troponin-T) 109.800 ng/L 0.000-14.000 Critical results called to josiah dimas at 10/26/2019 01:34:41 EXECUTIVE SOUS CHEF by og. Read back and verified? yesThe CV of the assay at 99th percentile for both male and female patient population is < 10%. A rise and fall in GILLIAN with at least one value above the 99th percentile with clinical evidence of myocardial ischemia would support a diagnosis of AMI. A delta of at least 20% is recommended to assess acute changes in results above the 99th percentile in serial measurements. Stable GILLIAN levels (<20%) delta above the 99th percentile URL would support a diagnosis of chronic myocardial injury. Creatine [id number] 23:47:02* Test Item Value Reference Range Interpretation Comments CK (test code = CK) 52 U/L 26-192 Creatine Kinase MB [id number] 23:47:02* Test Item Value Reference Range Interpretation Comments CKMB (test code = CKMB) 1.7 ng/mL 0.0-2.8 CKMB % (test code = CKMB %) 3.3 % 0.0-3.4 Troponin [id number] 23:47:02* Test Item Value Reference Range Interpretation Comments Troponin-T (test code = Troponin-T) 124.600 ng/L 0.000-14.000 Verified by repeat analysis.Critical results called to m ke at 10/25/2019 23:46:55 EXECUTIVE SOUS CHEF by og. Read back and verified? yesThe CV of the assay at 99th percentile for both male and female patient population is < 10%. A rise and fall in GILLIAN with at least one value above the 99th percentile with clinical evidence of myocardial ischemia would support a diagnosis of AMI. A delta of at least 20% is recom mended to assess acute changes in results above the 99th percentile in serial measurements. Stable GILLIAN levels (<20%) delta above the 99th percentile URL would support a diagnosis of chronic myocardial injury. Comprehensive Metabolic [id number] 23:47:01* Test Item Value Reference Range Interpretation Comments Sodium Level (test code = Sodium Level) 138.0 mmol/L 135.0-145.0 Potassium Level (test code = Potassium Level) 4.5 mmol/L 3.5-5.1 Chloride Level (test code = Chloride Level) 95 mmol/L 98-105 L CO2 (test code = CO2) 29 mmol/L 22-29 Anion Gap (test code = Anion Gap) 14 mmol/L 7-16 BUN (test code = BUN) 20.90 mg/dL 6.00-20.00 H Creatinine Level (test code = Creatinine Level) 4.30 mg/dL 0.50-0 .90 H BUN/Creat Ratio (test code = BUN/Creat Ratio) 5 N Glucose Level (test code = Glucose Level) 434 mg/dL 70-115 Verified by repeat analysis.Critical results called to haver at 10/25/2019 23:46:55 EXECUTIVE SOUS CHEF by og. Read back and verified? yes Calcium Level (test code = Calcium Level) 9.3 mg/dL 8.3-10.5 Alk Phos (test code = Alk Phos) 182 U/L 35-104 H Bilirubin Total (test code = Bilirubin Total) 0.5 mg/dL 0.1-0.9 Albumin Level (test code = Albumin Level) 3.8 g/dL 3.5-5.2 Protein Total (test code = Protein Total) 6.4 g/dL 6.4-8.3 ALT (test code = ALT) 13 U/L 1-33 AST (test code = AST) 16 U/L 1-32 Globulin (test code = Globulin) 2.6 g/dL 2.9-3.1 L A/G Ratio (test code = A/G Ratio) 1.5 ratio N Comprehensive Metabolic [id number] 23:47:01* Test Item Value Reference Range Interpretation Comments Sodium Level (test code = Sodium Level) 138.0 mmol/L 135.0-145.0 Potassium Level (test code = Potassium Level) 4.5 mmol/L 3.5-5.1 Chloride Level (test code = Chloride Level) 95 mmol/L 98-105 L CO2 (test code = CO2) 29 mmol/L 22-29 Anion Gap (test code = Anion Gap) 14 mmol/L 7-16 BUN (test code = BUN) 20.90 mg/dL 6.00-20.00 H Creatinine Level (test code = Creatinine Level) 4.30 mg/dL 0.50-0 .90 H BUN/Creat Ratio (test code = BUN/Creat Ratio) 5 N Glucose Level (test code = Glucose Level) 434 mg/dL 70-115 Verified by repeat analysis.Critical results called to m haver at 10/25/2019 23:46:55 EXECUTIVE SOUS CHEF by og. Read back and verified? yes Calcium Level (test code = Calcium Level) 9.3 mg/dL 8.3-10.5 Alk Phos (test code = Alk Phos) 182 U/L 35-104 H Bilirubin Total (test code = Bilirubin Total) 0.5 mg/dL 0.1-0.9 Albumin Level (test code = Albumin Level) 3.8 g/dL 3.5-5.2 Protein Total (test code = Protein Total) 6.4 g/dL 6.4-8.3 ALT (test code = ALT) 13 U/L 1-33 AST (test code = AST) 16 U/L 1-32 Globulin (test code = Globulin) 2.6 g/dL 2.9-3.1 L A/G Ratio (test code = A/G Ratio) 1.5 ratio N eGFR AA (test code = eGFR AA) 13 mL/min/1.73 m2 N eGFR (estimated Glomerular Filtration Rate) is an estimated value, calculated from the patient's serum creatinine using the MDRD equation. It is NOT the patient's actual GFR. The eGFR provides a more clinically useful measure of kidney disease than serum creatinine alone.This calculation takes sex and race into account, if the information is provided. If the race is not provided, and the patient is -Prydeinig, multiply by 1.212. If sex is not provided, and the patient is female, multiply by 0.742. Results for patients <18 years of age have not been validated by the MDRD study and should be interpreted with caution. eGFR Result Interpretation:eGFR > or = 60 is in the Normal RangeeGFR < 60 may mean kidney diseaseeGFR < 15 may mean kidney failure Ranges recommended by the National Kidney Foundation, http://nkdep.nih.gov Comprehensive Metabolic [id number] 23:47:01* Test Item Value Reference Range Interpretation Comments Sodium Level (test code = Sodium Level) 138.0 mmol/L 135.0-145.0 Potassium Level (test code = Potassium Level) 4.5 mmol/L 3.5-5.1 Chloride Level (test code = Chloride Level) 95 mmol/L 98-105 L CO2 (test code = CO2) 29 mmol/L 22-29 Anion Gap (test code = Anion Gap) 14 mmol/L 7-16 BUN (test code = BUN) 20.90 mg/dL 6.00-20.00 H Creatinine Level (test code = Creatinine Level) 4.30 mg/dL 0.50-0 .90 H BUN/Creat Ratio (test code = BUN/Creat Ratio) 5 N Glucose Level (test code = Glucose Level) 434 mg/dL 70-115 Verified by repeat analysis.Critical results called to ruth dempsey at 10/25/2019 23:46:55 EXECUTIVE SOUS CHEF by og. Read back and verified? yes Calcium Level (test code = Calcium Level) 9.3 mg/dL 8.3-10.5 Alk Phos (test code = Alk Phos) 182 U/L 35-104 H Bilirubin Total (test code = Bilirubin Total) 0.5 mg/dL 0.1-0.9 Albumin Level (test code = Albumin Level) 3.8 g/dL 3.5-5.2 Protein Total (test code = Protein Total) 6.4 g/dL 6.4-8.3 ALT (test code = ALT) 13 U/L 1-33 AST (test code = AST) 16 U/L 1-32 Globulin (test code = Globulin) 2.6 g/dL 2.9-3.1 L A/G Ratio (test code = A/G Ratio) 1.5 ratio N eGFR AA (test code = eGFR AA) 13 mL/min/1.73 m2 N eGFR (estimated Glomerular Filtration Rate) is an estimated value, calculated from the patient's serum creatinine using the MDRD equation. It is NOT the patient's actual GFR. The eGFR provides a more clinically useful measure of kidney disease than serum creatinine alone.This calculation takes sex and race into account, if the information is provided. If the race is not provided, and the patient is -Prydeinig, multiply by 1.212. If sex is not provided, and the patient is female, multiply by 0.742. Results for patients <18 years of age have not been validated by the MDRD study and should be interpreted with caution. eGFR Result Interpretation:eGFR > or = 60 is in the Normal RangeeGFR < 60 may mean kidney diseaseeGFR < 15 may mean kidney failure Ranges recommended by the National Kidney Foundation, http://nkdep.nih.gov eGFR Non-AA (test code = eGFR Non-AA) 10.77 mL/min/1.73 m2 N eGFR (estimated Glomerular Filtration Rate) is an estimated value, calculated from the patient's serum creatinine using the MDRD equation. It is NOT the patient's actual GFR. The eGFR provides a more clinically useful measure of kidney disease than serum creatinine alone.This calculation takes sex and race into account, if the information is provided. If the race is not provided, and the patient is -Prydeinig, multiply by 1.212. If sex is not provided, and the patient is female, multiply by 0.742. Results for patients <18 years of age have not been validated by the MDRD study and should be interpreted with caution. eGFR Result Interpretation:eGFR > or = 60 is in the Normal RangeeGFR < 60 may mean kidney diseaseeGFR < 15 may mean kidney failure Ranges recommended by the National Kidney Foundation, http://nkdep.nih.gov Complete Blood Count with [id number] 23:27:25* Test Item Value Reference Range Interpretation Comments WBC (test code = WBC) 7.1 x10 4.4-10.5 RBC (test code = RBC) 2.89 x10 3.75-5.20 L Hgb (test code = Hgb) 9.7 g/dL 12.2-14.8 L Hct (test code = Hct) 29.0 % 36.5-44.4 L MCV (test code = MCV) 100.30 fL 80.00-100.00 H MCHC (test code = MCHC) 33.40 g/dL 32.00-37.50 MCH (test code = MCH) 33.6 pg 27.0-32.5 H RDW CV (test code = RDW CV) 12.9 % 11.5-14.5 Platelets (test code = Platelets) 244.0 x10 140.0-440.0 MPV (test code = MPV) 10.6 fL N Slide Review (test code = Slide Review) Auto Auto Result created by [email or web address]_REV_AUTO nRBC (test code = nRBC) 0 N NRBC Abs (test code = NRBC Abs) 0.00 x10 N IPF (test code = IPF) 0 % N Automated [id number] 23:27:25* Test Item Value Reference Range Interpretation Comments Neutro Auto (test code = Neutro Auto) 68.4 % 36.0-70.0 Lymph Auto (test code = Lymph Auto) 20.4 % 12.0-44.0 Wallace Auto (test code = Wallace Auto) 6.7 % 0.0-11.0 Eos, Auto (test code = Eos, Auto) 3.5 % 0.0-7.0 Basophil Auto (test code = Basophil Auto) 0.6 % 0.0-2.0 Neutro Absolute (test code = Neutro Absolute) 4.9 x10 1.6-7.4 Lymph Absolute (test code = Lymph Absolute) 1.45 x10 .50-4.60 Wallace Absolute (test code = Wallace Absolute) .48 x10 .00-1.20 Eos Absolute (test code = Eos Absolute) 0.25 x10 0.00-0.74 Baso Absolute (test code = Baso Absolute) 0.04 x10 0.00-0.21 IG [id number] 23:27:25* Test Item Value Reference Range Interpretation Comments IG (test code = IG) 0.4 % 0.0-5.0 IG Abs (test code = IG Abs) 0 x10 N XR Chest 1 View [id number] 19:24:03Patient: DAYO GARDINER Date/Time10/25/2019 18:59 CSTReason for ExamChest painReportLocation: [id number], FRONTAL VIEWHISTORY: Chest painFINDINGS:Since 06/24/2019, this continued left pleural thickening with scarring. The lungs are otherwise clear. The heart size is normal. The bones are unremarkable.IMPRESSION:No evidence of acute cardiopulmonary disease. Final Dictated by: MD Lizeth, Danyelle DT/TM: 10/25/2019 7:22 pmSigned by: MD Lizeth, Jenna (Electronic Signature): 10/25/2019 7:24 pmPOC [id number] 11:50:34* Test Item Value Reference Range Interpretation Comments Glucose POC (test code = Glucose POC) 307 mg/dL 70-115 H If you consider your patient critically ill, the Larry-Accu Check Infrom II meter should not be used for Glucose determination. Draw a venous Glucose and send to the main Lab for analysis. XR Tibia/Fibula [id number] 11:42:15Patient: DAYO GARDINER Date/Time10/19/2019 11:26 CSTReason for Examleft lower ext fracture;InjuryReportEXAM: XR TIBIA AND FIBULA 2 VIEWS, LEFTINDICATION: Evaluate for fractureCOMPARISON: None availableTECHNIQUE: AP and lateral views of the left tibia and fibula.FINDINGS:There is a healing oblique fracture of the distal fibula with callus formation noted. No acute fractures are identified. No osseous lesions. No soft tissue abnormality is identified. There are significant vascular calcifications noted.IMPRESSION:Healing oblique fracture of the distal fibula.LOCATION: R16 Final Dictated by: MD Bhat Melanie CDictated DT/TM: 10/19/2019 11:41 amSigned by: MD Bhat Melanie CSigned (Electronic Signature): 10/19/2019 11:42 amPOC Glucose 2019-10-19 07:43:36* Test Item Value Reference Range Interpretation Comments Glucose POC (test code = Glucose POC) 283 mg/dL 70-115 H If you consider your patient critically ill, the Larry-Accu Check Infrom II meter should not be used for Glucose determination. Draw a venous Glucose and send to the main Lab for analysis. Basic Metabolic [id number] 04:01:39* Test Item Value Reference Range Interpretation Comments Sodium Level (test code = Sodium Level) 139.0 mmol/L 135.0-145.0 Potassium Level (test code = Potassium Level) 4.2 mmol/L 3.5-5.1 Chloride Level (test code = Chloride Level) 94 mmol/L 98-105 L CO2 (test code = CO2) 27 mmol/L 22-29 Anion Gap (test code = Anion Gap) 18 mmol/L 7-16 H BUN (test code = BUN) 29.70 mg/dL 6.00-20.00 H Creatinine Level (test code = Creatinine Level) 4.00 mg/dL 0.50-0 .90 H BUN/Creat Ratio (test code = BUN/Creat Ratio) 7 N Glucose Level (test code = Glucose Level) 417 mg/dL 70-115 Verified by repeat analysis.Critical results called to leeann goodwin at 10/19/2019 04:01:32 EXECUTIVE SOUS CHEF by og. Read back and verified? yes Calcium Level (test code = Calcium Level) 9.1 mg/dL 8.3-10.5 Basic Metabolic [id number] 04:01:39* Test Item Value Reference Range Interpretation Comments Sodium Level (test code = Sodium Level) 139.0 mmol/L 135.0-145.0 Potassium Level (test code = Potassium Level) 4.2 mmol/L 3.5-5.1 Chloride Level (test code = Chloride Level) 94 mmol/L 98-105 L CO2 (test code = CO2) 27 mmol/L 22-29 Anion Gap (test code = Anion Gap) 18 mmol/L 7-16 H BUN (test code = BUN) 29.70 mg/dL 6.00-20.00 H Creatinine Level (test code = Creatinine Level) 4.00 mg/dL 0.50-0 .90 H BUN/Creat Ratio (test code = BUN/Creat Ratio) 7 N Glucose Level (test code = Glucose Level) 417 mg/dL 70-115 Verified by repeat analysis.Critical results called to leeann goodwin at 10/19/2019 04:01:32 EXECUTIVE SOUS CHEF by og. Read back and verified? yes Calcium Level (test code = Calcium Level) 9.1 mg/dL 8.3-10.5 eGFR AA (test code = eGFR AA) 14 mL/min/1.73 m2 N eGFR (estimated Glomerular Filtration Rate) is an estimated value, calculated from the patient's serum creatinine using the MDRD equation. It is NOT the patient's actual GFR. The eGFR provides a more clinically useful measure of kidney disease than serum creatinine alone.This calculation takes sex and race into account, if the information is provided. If the race is not provided, and the patient is -Prydeinig, multiply by 1.212. If sex is not provided, and the patient is female, multiply by 0.742. Results for patients <18 years of age have not been validated by the MDRD study and should be interpreted with caution. eGFR Result Interpretation:eGFR > or = 60 is in the Normal RangeeGFR < 60 may mean kidney diseaseeGFR < 15 may mean kidney failure Ranges recommended by the National Kidney Foundation, http://nkdep.nih.gov Basic Metabolic [id number] 04:01:39* Test Item Value Reference Range Interpretation Comments Sodium Level (test code = Sodium Level) 139.0 mmol/L 135.0-145.0 Potassium Level (test code = Potassium Level) 4.2 mmol/L 3.5-5.1 Chloride Level (test code = Chloride Level) 94 mmol/L 98-105 L CO2 (test code = CO2) 27 mmol/L 22-29 Anion Gap (test code = Anion Gap) 18 mmol/L 7-16 H BUN (test code = BUN) 29.70 mg/dL 6.00-20.00 H Creatinine Level (test code = Creatinine Level) 4.00 mg/dL 0.50-0 .90 H BUN/Creat Ratio (test code = BUN/Creat Ratio) 7 N Glucose Level (test code = Glucose Level) 417 mg/dL 70-115 Verified by repeat analysis.Critical results called to leeann goodwin at 10/19/2019 04:01:32 EXECUTIVE SOUS CHEF by og. Read back and verified? yes Calcium Level (test code = Calcium Level) 9.1 mg/dL 8.3-10.5 eGFR AA (test code = eGFR AA) 14 mL/min/1.73 m2 N eGFR (estimated Glomerular Filtration Rate) is an estimated value, calculated from the patient's serum creatinine using the MDRD equation. It is NOT the patient's actual GFR. The eGFR provides a more clinically useful measure of kidney disease than serum creatinine alone.This calculation takes sex and race into account, if the information is provided. If the race is not provided, and the patient is -Prydeinig, multiply by 1.212. If sex is not provided, and the patient is female, multiply by 0.742. Results for patients <18 years of age have not been validated by the MDRD study and should be interpreted with caution. eGFR Result Interpretation:eGFR > or = 60 is in the Normal RangeeGFR < 60 may mean kidney diseaseeGFR < 15 may mean kidney failure Ranges recommended by the National Kidney Foundation, http://nkdep.nih.gov eGFR Non-AA (test code = eGFR Non-AA) 11.71 mL/min/1.73 m2 N eGFR (estimated Glomerular Filtration Rate) is an estimated value, calculated from the patient's serum creatinine using the MDRD equation. It is NOT the patient's actual GFR. The eGFR provides a more clinically useful measure of kidney disease than serum creatinine alone.This calculation takes sex and race into account, if the information is provided. If the race is not provided, and the patient is -Prydeinig, multiply by 1.212. If sex is not provided, and the patient is female, multiply by 0.742. Results for patients <18 years of age have not been validated by the MDRD study and should be interpreted with caution. eGFR Result Interpretation:eGFR > or = 60 is in the Normal RangeeGFR < 60 may mean kidney diseaseeGFR < 15 may mean kidney failure Ranges recommended by the National Kidney Foundation, http://nkdep.nih.gov Partial Thromboplastin [id number] 03:43:07* Test Item Value Reference Range Interpretation Comments Partial Thromboplastin Time (test code = Partial Throm boplastin Time) 76.20 seconds 24.39-37.25 H Delta check investig ated values correlate with patients condition,heparinResults called to and read back by: SEAN Sanchez 10/19/2019 03:43:01 EXECUTIVE SOUS CHEF CE Complete Blood Count with [id number] 02:40:06* Test Item Value Reference Range Interpretation Comments WBC (test code = WBC) 6.8 x10 4.4-10.5 RBC (test code = RBC) 2.56 x10 3.75-5.20 L Hgb (test code = Hgb) 8.6 g/dL 12.2-14.8 L MCV (test code = MCV) 103.10 fL 80.00-100.00 H Hct (test code = Hct) 26.4 % 36.5-44.4 L MCHC (test code = MCHC) 32.60 g/dL 32.00-37.50 RDW CV (test code = RDW CV) 12.2 % 11.5-14.5 MCH (test code = MCH) 33.6 pg 27.0-32.5 H Platelets (test code = Platelets) 204.0 x10 140.0-440.0 MPV (test code = MPV) 10.5 fL N Slide Review (test code = Slide Review) Auto Auto Result created by [email or web address]_REV_AUTO nRBC (test code = nRBC) 0 N NRBC Abs (test code = NRBC Abs) 0.00 x10 N IPF (test code = IPF) 0 % N Automated [id number] 02:40:06* Test Item Value Reference Range Interpretation Comments Neutro Auto (test code = Neutro Auto) 64.1 % 36.0-70.0 Lymph Auto (test code = Lymph Auto) 23.8 % 12.0-44.0 Wallace Auto (test code = Wallace Auto) 6.8 % 0.0-11.0 Eos, Auto (test code = Eos, Auto) 4.3 % 0.0-7.0 Basophil Auto (test code = Basophil Auto) 0.7 % 0.0-2.0 Neutro Absolute (test code = Neutro Absolute) 4.4 x10 1.6-7.4 Lymph Absolute (test code = Lymph Absolute) 1.62 x10 .50-4.60 Wallace Absolute (test code = Wallace Absolute) .46 x10 .00-1.20 Eos Absolute (test code = Eos Absolute) 0.29 x10 0.00-0.74 Baso Absolute (test code = Baso Absolute) 0.05 x10 0.00-0.21 IG [id number] 02:40:06* Test Item Value Reference Range Interpretation Comments IG (test code = IG) 0.3 % 0.0-5.0 IG Abs (test code = IG Abs) 0 x10 N NM Lung Vent/Perf [id number] 00:36:25Patient: DAYO GARDINER Date/Time10/19/2019 00:28 CSTReason for Examr/o DVT;Chest painReportAFTER HOURS SERVICE ON: 10/19/2019 12:33 AMVentilation/Perfusion ScanLocation Code P63Mjywvrx: Chest pain;r/o DVTTechnique: Patient inhaled 22.0 mCI of xenon-133. This was followed by IV injection of 7.3 mCi of Tc-MAA.Findings:There is decreased left lung volume which corresponds to the chest x-ray of 11 hours ago and also corresponds to the findings on the ventilation and perfusion scans.Ventilation: The equilibrium phase is symmetric. The washout phase demonstrates no evidence of air tr apping.Perfusion: No segmental perfusion defects seen.Impression:Low probability for pulmonary embolism. Final Dictated by: MD Clark Mohammad TDictated DT/TM: 10/19/2019 0:33 amSigned by: MD Clark Mohammad TSigned (E lectronic Signature): 10/19/2019 0:36 amPOC [id number] 21:39:36* Test Item Value Reference Range Interpretation Comments Glucose POC (test code = Glucose POC) 330 mg/dL 70-115 H If you consider your patient critically ill, the Larry-Accu Check Infrom II meter should not be used for Glucose determination. Draw a venous Glucose and send to the main Lab for analysis. Troponin [id number] 18:56:37* Test Item Value Reference Range Interpretation Comments Troponin-T (test code = Troponin-T) 129.500 ng/L 0.000-14.000 Critical results called to Lurdes at 10/18/2019 18:56:18 EXECUTIVE SOUS CHEF by EO. Read back and verified? YESThe CV of the assay at 99th percentile for both male and female patient population is < 10%. A rise and fall in GILLIAN with at least one value above the 99th percentile with clinical evidence of myocardial ischemia would support a diagnosis of AMI. A delta of at least 20% is recommended to assess acute changes in results above the 99th percentile in serial measurements. Stable GILLIAN levels (<20%) delta above the 99th percentile URL would support a diagnosis of chronic myocardial injury. US Lower Ext Venous Duplex [id number] 18:54:39Patient: DAYO GARDINER Date/Time10/18/2019 18:49 CSTReason for Examr/o dvt;Extremity painReportEXAM: U ltrasound Bilateral lower extremity venous DopplerHISTORY: PainLOCATION: R 16TE CHNIQUE: Grayscale real-time B-mode imaging with color flow and spectral flow D oppler analysis was performed of the Bilateral lower extremities.COMPARISON: Non e available time of interpretation.FINDINGS:There is normal compressibility with no evidence of thrombus involving the visualized venous structures of the bilat eral lower extremities.IMPRESSION:No DVT in the visualized structures of the clair ateral lower extremities. Final Dictated by: Contributor_systemGODWIN CRIBE_CTZDictated DT/TM: 10/18/2019 6:54 pmSigned by: Contributor_system PSCRI BE_CTZSigned (Electronic Signature): 10/18/2019 6:54 pmComprehensive Metabolic [id number] 15:09:47* Test Item Value Reference Range Interpretation Comments Sodium Level (test code = Sodium Level) 138.0 mmol/L 135.0-145.0 Potassium Level (test code = Potassium Level) see note mmol/L 3.5-5 .1 N Specimen hemolyzed. 4.3 Chloride Level (test code = Chloride Level) 93 mmol/L 98-105 L CO2 (test code = CO2) 32 mmol/L 22-29 H Anion Gap (test code = Anion Gap) 13 mmol/L 7-16 BUN (test code = BUN) 13.40 mg/dL 6.00-20.00 Creatinine Level (test code = Creatinine Level) 2.80 mg/dL 0.50-0 .90 H BUN/Creat Ratio (test code = BUN/Creat Ratio) 5 N Glucose Level (test code = Glucose Level) 291 mg/dL 70-115 H Calcium Level (test code = Calcium Level) 10.0 mg/dL 8.3-10.5 Alk Phos (test code = Alk Phos) 215 U/L 35-104 H Bilirubin Total (test code = Bilirubin Total) 0.4 mg/dL 0.1-0.9 Albumin Level (test code = Albumin Level) 4.1 g/dL 3.5-5.2 Protein Total (test code = Protein Total) 7.4 g/dL 6.4-8.3 ALT (test code = ALT) 25 U/L 1-33 AST (test code = AST) see note U/L 1-32 N Specim en hemolyzed. 31 Globulin (test code = Globulin) 3.3 g/dL 2.9-3.1 H A/G Ratio (test code = A/G Ratio) 1.2 ratio N eGFR AA (test code = eGFR AA) 21 mL/min/1.73 m2 N eGFR (estimated Glomerular Filtration Rate) is an estimated value, calculated from the patient's serum creatinine using the MDRD equation. It is NOT the patient's actual GFR. The eGFR provides a more clinically useful measure of kidney disease than serum creatinine alone.This calculation takes sex and race into account, if the information is provided. If the race is not provided, and the patient is -Prydeinig, multiply by 1.212. If sex is not provided, and the patient is female, multiply by 0.742. Results for patients <18 years of age have not been validated by the MDRD study and should be interpreted with caution. eGFR Result Interpretation:eGFR > or = 60 is in the Normal RangeeGFR < 60 may mean kidney diseaseeGFR < 15 may mean kidney failure Ranges recommended by the National Kidney Foundation, http://nkdep.nih.gov Creatine [id number] 15:09:47* Test Item Value Reference Range Interpretation Comments CK (test code = CK) 65 U/L 26-192 Comprehensive Metabolic [id number] 15:09:47* Test Item Value Reference Range Interpretation Comments Sodium Level (test code = Sodium Level) 138.0 mmol/L 135.0-145.0 Potassium Level (test code = Potassium Level) see note mmol/L 3.5-5 .1 N Specimen hemolyzed. 4.3 Chloride Level (test code = Chloride Level) 93 mmol/L 98-105 L CO2 (test code = CO2) 32 mmol/L 22-29 H Anion Gap (test code = Anion Gap) 13 mmol/L 7-16 BUN (test code = BUN) 13.40 mg/dL 6.00-20.00 Creatinine Level (test code = Creatinine Level) 2.80 mg/dL 0.50-0 .90 H BUN/Creat Ratio (test code = BUN/Creat Ratio) 5 N Glucose Level (test code = Glucose Level) 291 mg/dL 70-115 H Calcium Level (test code = Calcium Level) 10.0 mg/dL 8.3-10.5 Alk Phos (test code = Alk Phos) 215 U/L 35-104 H Bilirubin Total (test code = Bilirubin Total) 0.4 mg/dL 0.1-0.9 Albumin Level (test code = Albumin Level) 4.1 g/dL 3.5-5.2 Protein Total (test code = Protein Total) 7.4 g/dL 6.4-8.3 ALT (test code = ALT) 25 U/L 1-33 AST (test code = AST) see note U/L 1-32 N Specim en hemolyzed. 31 Globulin (test code = Globulin) 3.3 g/dL 2.9-3.1 H A/G Ratio (test code = A/G Ratio) 1.2 ratio N eGFR AA (test code = eGFR AA) 21 mL/min/1.73 m2 N eGFR (estimated Glomerular Filtration Rate) is an estimated value, calculated from the patient's serum creatinine using the MDRD equation. It is NOT the patient's actual GFR. The eGFR provides a more clinically useful measure of kidney disease than serum creatinine alone.This calculation takes sex and race into account, if the information is provided. If the race is not provided, and the patient is -Prydeinig, multiply by 1.212. If sex is not provided, and the patient is female, multiply by 0.742. Results for patients <18 years of age have not been validated by the MDRD study and should be interpreted with caution. eGFR Result Interpretation:eGFR > or = 60 is in the Normal RangeeGFR < 60 may mean kidney diseaseeGFR < 15 may mean kidney failure Ranges recommended by the National Kidney Foundation, http://nkdep.nih.gov Creatine Kinase MB [id number] 15:09:47* Test Item Value Reference Range Interpretation Comments CKMB (test code = CKMB) 1.8 ng/mL 0.0-2.8 CKMB % (test code = CKMB %) 2.8 % 0.0-3.4 Pro B Natriuretic [id number] 15:09:47* Test Item Value Reference Range Interpretation Comments NT-proBNP (test code = NT-proBNP) 06914 pg/mL 0-124 H Troponin [id number] 15:09:47* Test Item Value Reference Range Interpretation Comments Troponin-T (test code = Troponin-T) 142.300 ng/L 0.000-14.000 Attempted to report critical trop to assigned nurse, charge nurse, and No answer for assigned extension numbers. @ 150 TAThe CV of the assay at 99th percentile for both male and female patient population is < 10%. A rise and fall in GILLIAN with at least one value above the 99th percentile with clinical evidence of myocardial ischemia would support a diagnosis of AMI. A delta of at least 20% is re commended to assess acute changes in results above the 99th percentile in serial measurements. Stable GILLIAN levels (<20%) delta above the 99th percentile URL would support a diagnosis of chronic myocardial injury. Comprehensive Metabolic [id number] 15:09:47* Test Item Value Reference Range Interpretation Comments Sodium Level (test code = Sodium Level) 138.0 mmol/L 135.0-145.0 Potassium Level (test code = Potassium Level) see note mmol/L 3.5-5 .1 N Specimen hemolyzed. 4.3 Chloride Level (test code = Chloride Level) 93 mmol/L 98-105 L CO2 (test code = CO2) 32 mmol/L 22-29 H Anion Gap (test code = Anion Gap) 13 mmol/L 7-16 BUN (test code = BUN) 13.40 mg/dL 6.00-20.00 Creatinine Level (test code = Creatinine Level) 2.80 mg/dL 0.50-0 .90 H BUN/Creat Ratio (test code = BUN/Creat Ratio) 5 N Glucose Level (test code = Glucose Level) 291 mg/dL 70-115 H Calcium Level (test code = Calcium Level) 10.0 mg/dL 8.3-10.5 Alk Phos (test code = Alk Phos) 215 U/L 35-104 H Bilirubin Total (test code = Bilirubin Total) 0.4 mg/dL 0.1-0.9 Albumin Level (test code = Albumin Level) 4.1 g/dL 3.5-5.2 Protein Total (test code = Protein Total) 7.4 g/dL 6.4-8.3 ALT (test code = ALT) 25 U/L 1-33 AST (test code = AST) see note U/L 1-32 N Specim en hemolyzed. 31 Globulin (test code = Globulin) 3.3 g/dL 2.9-3.1 H A/G Ratio (test code = A/G Ratio) 1.2 ratio N eGFR AA (test code = eGFR AA) 21 mL/min/1.73 m2 N eGFR (estimated Glomerular Filtration Rate) is an estimated value, calculated from the patient's serum creatinine using the MDRD equation. It is NOT the patient's actual GFR. The eGFR provides a more clinically useful measure of kidney disease than serum creatinine alone.This calculation takes sex and race into account, if the information is provided. If the race is not provided, and the patient is -Prydeinig, multiply by 1.212. If sex is not provided, and the patient is female, multiply by 0.742. Results for patients <18 years of age have not been validated by the MDRD study and should be interpreted with caution. eGFR Result Interpretation:eGFR > or = 60 is in the Normal RangeeGFR < 60 may mean kidney diseaseeGFR < 15 may mean kidney failure Ranges recommended by the National Kidney Foundation, http://nkdep.nih.gov eGFR Non-AA (test code = eGFR Non-AA) 17.68 mL/min/1.73 m2 N eGFR (estimated Glomerular Filtration Rate) is an estimated value, calculated from the patient's serum creatinine using the MDRD equation. It is NOT the patient's actual GFR. The eGFR provides a more clinically useful measure of kidney disease than serum creatinine alone.This calculation takes sex and race into account, if the information is provided. If the race is not provided, and the patient is -Prydeinig, multiply by 1.212. If sex is not provided, and the patient is female, multiply by 0.742. Results for patients <18 years of age have not been validated by the MDRD study and should be interpreted with caution. eGFR Result Interpretation:eGFR > or = 60 is in the Normal RangeeGFR < 60 may mean kidney diseaseeGFR < 15 may mean kidney failure Ranges recommended by the National Kidney Foundation, http://nkdep.nih.gov Prothrombin Time and [id number] 14:40:53* Test Item Value Reference Range Interpretation Comments Prothrombin Time (test code = Prothrombin Time) 11.6 seconds 9.8-13 .4 INR (test code = INR) 1.0 ratio 0.6-1.2 Partial Thromboplastin [id number] 14:40:53* Test Item Value Reference Range Interpretation Comments Partial Thromboplastin Time (test code = Partial Throm boplastin Time) 31.60 seconds 24.39-37.25 Complete Blood Count with [id number] 14:11:10* Test Item Value Reference Range Interpretation Comments WBC (test code = WBC) 8.0 x10 4.4-10.5 RBC (test code = RBC) 3.10 x10 3.75-5.20 L Hgb (test code = Hgb) 10.3 g/dL 12.2-14.8 L MCV (test code = MCV) 100.00 fL 80.00-100.00 Hct (test code = Hct) 31.0 % 36.5-44.4 L MCHC (test code = MCHC) 33.20 g/dL 32.00-37.50 MCH (test code = MCH) 33.2 pg 27.0-32.5 H RDW CV (test code = RDW CV) 12.4 % 11.5-14.5 Platelets (test code = Platelets) 270.0 x10 140.0-440.0 MPV (test code = MPV) 10.5 fL N Slide Review (test code = Slide Review) Auto Auto Result created by [email or web address] nRBC (test code = nRBC) 0 N NRBC Abs (test code = NRBC Abs) 0.00 x10 N IPF (test code = IPF) 0 % N Automated [id number] 14:11:10* Test Item Value Reference Range Interpretation Comments Neutro Auto (test code = Neutro Auto) 77.9 % 36.0-70.0 H Lymph Auto (test code = Lymph Auto) 12.9 % 12.0-44.0 Wallace Auto (test code = Wallace Auto) 5.7 % 0.0-11.0 Eos, Auto (test code = Eos, Auto) 2.6 % 0.0-7.0 Basophil Auto (test code = Basophil Auto) 0.5 % 0.0-2.0 Neutro Absolute (test code = Neutro Absolute) 6.2 x10 1.6-7.4 Lymph Absolute (test code = Lymph Absolute) 1.03 x10 .50-4.60 Wallace Absolute (test code = Wallace Absolute) .45 x10 .00-1.20 Eos Absolute (test code = Eos Absolute) 0.21 x10 0.00-0.74 Baso Absolute (test code = Baso Absolute) 0.04 x10 0.00-0.21 IG [id number] 14:11:10* Test Item Value Reference Range Interpretation Comments IG (test code = IG) 0.4 % 0.0-5.0 IG Abs (test code = IG Abs) 0 x10 N XR Chest 1 View [id number] 13:40:30Patient: DAYO GARDINER Date/Time10/18/2019 13:34 CSTReason for ExamChest painReportCHEST 1 VIEWCLINICAL INFORMATION: Chest painCOMPARISON: NoneFINDINGS:The left lateral costophrenic angle is blunted suggesting a small effusion. Subsegmental atelectasis is noted in the left lung base. The remainder of the lungs is clear. The heart size is normal. The bones are grossly intact.IMPRESSION:Probable small left pleural effusion with associated left basilar airspace disease.LOCATION: R16 Final Dictated by: MD Alberto Adam FDictated DT/TM: 10/18/2019 1:39 pmSigned by: MD Alberto Adam FSigned (Electronic Signature): 10/18/2019 1:40 pmPOC [id number] 17:02:17* Test Item Value Reference Range Interpretation Comments Glucose POC (test code = Glucose POC) 338 mg/dL 70-115 H If you consider your patient critically ill, the Larry-Accu Check Infrom II meter should not be used for Glucose determination. Draw a venous Glucose and send to the main Lab for analysis. POC [id number] 07:53:49* Test Item Value Reference Range Interpretation Comments Glucose POC (test code = Glucose POC) 227 mg/dL 70-115 H If you consider your patient critically ill, the Larry-Accu Check Infrom II meter should not be used for Glucose determination. Draw a venous Glucose and send to the main Lab for analysis. POC [id number] 20:30:47* Test Item Value Reference Range Interpretation Comments Glucose POC (test code = Glucose POC) 168 mg/dL 70-115 H If you consider your patient critically ill, the Larry-Accu Check Infrom II meter should not be used for Glucose determination. Draw a venous Glucose and send to the main Lab for analysis. Hepatitis B Surface [id number] 19:04:36* Test Item Value Reference Range Interpretation Comments Hep Bs Ag (test code = Hep Bs Ag) Nonreactive Non Reactive POC [id number] 16:30:20* Test Item Value Reference Range Interpretation Comments Glucose POC (test code = Glucose POC) 201 mg/dL 70-115 H If you consider your patient critically ill, the Larry-Accu Check Infrom II meter should not be used for Glucose determination. Draw a venous Glucose and send to the main Lab for analysis. NM Myocardial SPECT Rest and [id number] 16:23:34Patient: DAYO GARDINER Date/Time06/26/2019 12:00 CDTReason for ExamAbnormal EKGReportNUCLEAR MEDICINE GATED SPECT MYOCARDIAL PERFUSION STUDY AT REST AND STRESS PROTOCOL . Lexiscan pr otocol was used.TECHNIQUE:The study was performed employing imaging both with th e patient at rest and again after the patient had completed a stress protocol. Images were reconstructed in three orthogonal planes with 3D imaging reconstruct ions also performed.COMMENT: Patient is a 53 - year-old female with hypertension and end-stage renal disease diabetes with chest pain and abnormal EKG. . Study was performed using 40 mCi of technetium 99 labeled Cardiolite.ADEQUACY OF THE S TRESS: Stress was performed with IV Lexiscan protocol.LEFT VENTRICULAR PERFUSION : There was evidence of breast tissue attenuation artifact with a small area of mild ischemia over the anteroseptal and apical septal area.RIGHT VENTRICULAR ACT IVITY: Not increased.LEFT VENTRICULAR CAVITY SIZE: Normal and stable with stress .GATED FINDINGS: Post-stress LVEF 63%.IMPRESSION:Mildly abnormal study as descri bed above. Final Dictated by: MD Harris S Ricotated DT/TM: 06/26/2019 4:19 pmSigned by: MD Iglesias S SatheeshaSigned (Electronic Signatur e): 06/26/2019 4:23 pmPOC [id number] 06:44:49* Test Item Value Reference Range Interpretation Comments Glucose POC (test code = Glucose POC) 188 mg/dL 70-115 H Notify RN or If you consider your patient critically ill, the Larry-Accu Check Infrom II meter should not be used for Glucose determination. Draw a venous Glucose and send to the main Lab for analysis. POC [id number] 21:05:51* Test Item Value Reference Range Interpretation Comments Glucose POC (test code = Glucose POC) 260 mg/dL 70-115 H Notify RN or MDIf you consider your patient critically ill, the Larry-Accu Check Infrom II meter should not be used for Glucose determination. Draw a venous Glucose and send to the main Lab for analysis. POC [id number] 16:07:45* Test Item Value Reference Range Interpretation Comments Glucose POC (test code = Glucose POC) 185 mg/dL 70-115 H If you consider your patient critically ill, the Alrry-Accu Check Infrom II meter should not be used for Glucose determination. Draw a venous Glucose and send to the main Lab for analysis. POC [id number] 11:47:48* Test Item Value Reference Range Interpretation Comments Glucose POC (test code = Glucose POC) 218 mg/dL 70-115 H If you consider your patient critically ill, the Larry-Accu Check Infrom II meter should not be used for Glucose determination. Draw a venous Glucose and send to the main Lab for analysis. Pro B Natriuretic [id number] 09:31:58* Test Item Value Reference Range Interpretation Comments NT-proBNP (test code = NT-proBNP) 86359 pg/mL 0-124 H POC [id number] 07:25:48* Test Item Value Reference Range Interpretation Comments Glucose POC (test code = Glucose POC) 207 mg/dL 70-115 H If you consider your patient critically ill, the Larry-Accu Check Infrom II meter should not be used for Glucose determination. Draw a venous Glucose and send to the main Lab for analysis. Thyroid Stimulating [id number] 04:42:22* Test Item Value Reference Range Interpretation Comments TSH (test code = TSH) 4.100 mIU/mL 0.270-4.200 Lipid [id number] 04:36:02* Test Item Value Reference Range Interpretation Comments Cholesterol Total (test code = Cholesterol Total) 148 mg/dL 0-20 0 RISK OF HEART DISEASEPublished by [place] Heart Association Analyte Optimal Borderline Increased RiskCHOL <200 200-239 >240TRIG <150 150-199 >200HDL Male >60 <40HDL Female >60 <50LDL <100 130-159 >160LDL Near optimal is 100-129 Triglycerides (test code = Triglycerides) 79 mg/dL 9-200 HDL (test code = HDL) 58 mg/dL 50-60 LDL (test code = LDL) 75 mg/dL 0-130 The eq uation being used in this calculation is LDL = (Chol - HDL) - (Trig / 5) VLDL (test code = VLDL) 16 mg/dL 5-40 The equation being used in this calculation is VLDL = Trig / 5 Chol/HDL (test code = Chol/HDL) 2.6 ratio 0.0-4.4 LDL/HDL Ratio (test code = LDL/HDL Ratio) 1 N The equation being used in this calculation is LDL/HDL Ratio=LDL Calc/HDL Chol Magnesium [id number] 04:36:02* Test Item Value Reference Range Interpretation Comments Magnesium Level (test code = Magnesium Level) 2.4 mg/dL 1.7-2.5 Lipid [id number] 04:36:02* Test Item Value Reference Range Interpretation Comments Cholesterol Total (test code = Cholesterol Total) 148 mg/dL 0-20 0 RISK OF HEART DISEASEPublished by [employer] [employer] Analyte Optimal Borderline Increased RiskCHOL <200 200-239 >240TRIG <150 150-199 >200HDL Male >60 <40HDL Female >60 <50LDL <100 130-159 >160LDL Near optimal is 100-129 Triglycerides (test code = Triglycerides) 79 mg/dL 9-200 HDL (test code = HDL) 58 mg/dL 40-60 Refere nce range changed due to change in patient's sex at 13:35:27. Normal Low changed from 50 to 40. Result flag not changed. LDL (test code = LDL) 75 mg/dL 0-130 The eq uation being used in this calculation is LDL = (Chol - HDL) - (Trig / 5) VLDL (test code = VLDL) 16 mg/dL 5-40 The equation being used in this calculation is VLDL = Trig / 5 Chol/HDL (test code = Chol/HDL) 2.6 ratio 0.0-5.0 Reference range changed due to change in patient's sex at 13:35:27. Normal High changed from 4.4 to 5.0. Result flag not changed. LDL/HDL Ratio (test code = LDL/HDL Ratio) 1 N The equation being used in this calculation is LDL/HDL Ratio=LDL Calc/HDL Chol Lipid [id number] 04:36:02* Test Item Value Reference Range Interpretation Comments Cholesterol Total (test code = Cholesterol Total) 148 mg/dL 0-20 0 RISK OF HEART DISEASEPublished by [employer] Analyte Optimal Borderline Increased RiskCHOL <200 200-239 >240TRIG <150 150-199 >200HDL Male >60 <40HDL Female >60 <50LDL <100 130-159 >160LDL Near optimal is 100-129 Triglycerides (test code = Triglycerides) 79 mg/dL 9-200 HDL (test code = HDL) 58 mg/dL 50-60 Refere nce range changed due to change in patient's sex at 13:35:27. Normal Low changed from 50 to 40. Result flag not changed. Reference range changed due to change in patient's sex at 18:21:32. Normal Low changed from 40 to 50. Result flag not changed. LDL (test code = LDL) 75 mg/dL 0-130 The eq uation being used in this calculation is LDL = (Chol - HDL) - (Trig / 5) VLDL (test code = VLDL) 16 mg/dL 5-40 The equation being used in this calculation is VLDL = Trig / 5 Chol/HDL (test code = Chol/HDL) 2.6 ratio 0.0-4.4 Reference range changed due to change in patient's sex at 13:35:27. Normal High changed from 4.4 to 5.0. Result flag not changed. Reference range changed due to change in patient's sex at 18:21:32. Normal High changed from 5.0 to 4.4. Result flag not changed. LDL/HDL Ratio (test code = LDL/HDL Ratio) 1 N The equation being used in this calculation is LDL/HDL Ratio=LDL Calc/HDL Chol Comprehensive Metabolic [id number] 04:36:01* Test Item Value Reference Range Interpretation Comments Sodium Level (test code = Sodium Level) 138.0 mmol/L 135.0-145.0 Potassium Level (test code = Potassium Level) 4.8 mmol/L 3.5-5.1 Chloride Level (test code = Chloride Level) 96 mmol/L 98-105 L CO2 (test code = CO2) 28 mmol/L 22-29 Anion Gap (test code = Anion Gap) 14 mmol/L 7-16 BUN (test code = BUN) 33.30 mg/dL 6.00-20.00 H Creatinine Level (test code = Creatinine Level) 6.30 mg/dL 0.50-0 .90 H BUN/Creat Ratio (test code = BUN/Creat Ratio) 5 N Glucose Level (test code = Glucose Level) 288 mg/dL 70-115 H Calcium Level (test code = Calcium Level) 9.0 mg/dL 8.3-10.5 Alk Phos (test code = Alk Phos) 143 U/L 35-104 H Bilirubin Total (test code = Bilirubin Total) 0.6 mg/dL 0.1-0.9 Albumin Level (test code = Albumin Level) 3.7 g/dL 3.5-5.2 Protein Total (test code = Protein Total) 5.9 g/dL 6.4-8.3 L ALT (test code = ALT) 19 U/L 1-33 AST (test code = AST) 19 U/L 1-32 Globulin (test code = Globulin) 2.2 g/dL 2.9-3.1 L A/G Ratio (test code = A/G Ratio) 1.7 ratio N Comprehensive Metabolic [id number] 04:36:01* Test Item Value Reference Range Interpretation Comments Sodium Level (test code = Sodium Level) 138.0 mmol/L 135.0-145.0 Potassium Level (test code = Potassium Level) 4.8 mmol/L 3.5-5.1 Chloride Level (test code = Chloride Level) 96 mmol/L 98-105 L CO2 (test code = CO2) 28 mmol/L 22-29 Anion Gap (test code = Anion Gap) 14 mmol/L 7-16 BUN (test code = BUN) 33.30 mg/dL 6.00-20.00 H Creatinine Level (test code = Creatinine Level) 6.30 mg/dL 0.50-0 .90 H BUN/Creat Ratio (test code = BUN/Creat Ratio) 5 N Glucose Level (test code = Glucose Level) 288 mg/dL 70-115 H Calcium Level (test code = Calcium Level) 9.0 mg/dL 8.3-10.5 Alk Phos (test code = Alk Phos) 143 U/L 35-104 H Bilirubin Total (test code = Bilirubin Total) 0.6 mg/dL 0.1-0.9 Albumin Level (test code = Albumin Level) 3.7 g/dL 3.5-5.2 Protein Total (test code = Protein Total) 5.9 g/dL 6.4-8.3 L ALT (test code = ALT) 19 U/L 1-33 AST (test code = AST) 19 U/L 1-32 Globulin (test code = Globulin) 2.2 g/dL 2.9-3.1 L A/G Ratio (test code = A/G Ratio) 1.7 ratio N eGFR AA (test code = eGFR AA) 8 mL/min/1.73 m2 N eGFR (estimated Glomerular Filtration Rate) is an estimated value, calculated from the patient's serum creatinine using the MDRD equation. It is NOT the patient's actual GFR. The eGFR provides a more clinically useful measure of kidney disease than serum creatinine alone.This calculation takes sex and race into account, if the information is provided. If the race is not provided, and the patient is -Prydeinig, multiply by 1.212. If sex is not provided, and the patient is female, multiply by 0.742. Results for patients <18 years of age have not been validated by the MDRD study and should be interpreted with caution. eGFR Result Interpretation:eGFR > or = 60 is in the Normal RangeeGFR < 60 may mean kidney diseaseeGFR < 15 may mean kidney failure Ranges recommended by the National Kidney Foundation, http://nkdep.nih.gov Comprehensive Metabolic [id number] 04:36:01* Test Item Value Reference Range Interpretation Comments Sodium Level (test code = Sodium Level) 138.0 mmol/L 135.0-145.0 Potassium Level (test code = Potassium Level) 4.8 mmol/L 3.5-5.1 Chloride Level (test code = Chloride Level) 96 mmol/L 98-105 L CO2 (test code = CO2) 28 mmol/L 22-29 Anion Gap (test code = Anion Gap) 14 mmol/L 7-16 BUN (test code = BUN) 33.30 mg/dL 6.00-20.00 H Creatinine Level (test code = Creatinine Level) 6.30 mg/dL 0.50-0 .90 H BUN/Creat Ratio (test code = BUN/Creat Ratio) 5 N Glucose Level (test code = Glucose Level) 288 mg/dL 70-115 H Calcium Level (test code = Calcium Level) 9.0 mg/dL 8.3-10.5 Alk Phos (test code = Alk Phos) 143 U/L 35-104 H Bilirubin Total (test code = Bilirubin Total) 0.6 mg/dL 0.1-0.9 Albumin Level (test code = Albumin Level) 3.7 g/dL 3.5-5.2 Protein Total (test code = Protein Total) 5.9 g/dL 6.4-8.3 L ALT (test code = ALT) 19 U/L 1-33 AST (test code = AST) 19 U/L 1-32 Globulin (test code = Globulin) 2.2 g/dL 2.9-3.1 L A/G Ratio (test code = A/G Ratio) 1.7 ratio N eGFR AA (test code = eGFR AA) 8 mL/min/1.73 m2 N eGFR (estimated Glomerular Filtration Rate) is an estimated value, calculated from the patient's serum creatinine using the MDRD equation. It is NOT the patient's actual GFR. The eGFR provides a more clinically useful measure of kidney disease than serum creatinine alone.This calculation takes sex and race into account, if the information is provided. If the race is not provided, and the patient is -Prydeinig, multiply by 1.212. If sex is not provided, and the patient is female, multiply by 0.742. Results for patients <18 years of age have not been validated by the MDRD study and should be interpreted with caution. eGFR Result Interpretation:eGFR > or = 60 is in the Normal RangeeGFR < 60 may mean kidney diseaseeGFR < 15 may mean kidney failure Ranges recommended by the National Kidney Foundation, http://nkdep.nih.gov eGFR Non-AA (test code = eGFR Non-AA) 6.93 mL/min/1.73 m2 N eGFR (estimated Glomerular Filtration Rate) is an estimated value, calculated from the patient's serum creatinine using the MDRD equation. It is NOT the patient's actual GFR. The eGFR provides a more clinically useful measure of kidney disease than serum creatinine alone.This calculation takes sex and race into account, if the information is provided. If the race is not provided, and the patient is -Prydeinig, multiply by 1.212. If sex is not provided, and the patient is female, multiply by 0.742. Results for patients <18 years of age have not been validated by the MDRD study and should be interpreted with caution. eGFR Result Interpretation:eGFR > or = 60 is in the Normal RangeeGFR < 60 may mean kidney diseaseeGFR < 15 may mean kidney failure Ranges recommended by the National Kidney Foundation, http://nkdep.nih.gov Comprehensive Metabolic [id number] 04:36:01* Test Item Value Reference Range Interpretation Comments Sodium Level (test code = Sodium Level) 138.0 mmol/L 135.0-145.0 Potassium Level (test code = Potassium Level) 4.8 mmol/L 3.5-5.1 Chloride Level (test code = Chloride Level) 96 mmol/L 98-105 L CO2 (test code = CO2) 28 mmol/L 22-29 Anion Gap (test code = Anion Gap) 14 mmol/L 7-16 BUN (test code = BUN) 33.30 mg/dL 6.00-20.00 H Creatinine Level (test code = Creatinine Level) 6.30 mg/dL 0.70-1 .20 H Reference range changed due to change in patient's sex at 13:35:27. Normal Low changed from 0.50 to 0.70. Normal High changed from 0.90 to 1.20. Result flag not changed. BUN/Creat Ratio (test code = BUN/Creat Ratio) 5 N Glucose Level (test code = Glucose Level) 288 mg/dL 70-115 H Calcium Level (test code = Calcium Level) 9.0 mg/dL 8.3-10.5 Alk Phos (test code = Alk Phos) 143 U/L 40-129 H Reference range changed due to change in patient's sex at 13:35:27. Normal Low changed from 35 to 40. Normal High changed from 104 to 129. Result flag not changed. Bilirubin Total (test code = Bilirubin Total) 0.6 mg/dL 0.1-0.9 Albumin Level (test code = Albumin Level) 3.7 g/dL 3.5-5.2 Protein Total (test code = Protein Total) 5.9 g/dL 6.4-8.3 L ALT (test code = ALT) 19 U/L 1-41 Refere nce range changed due to change in patient's sex at 13:35:27. Normal High changed from 33 to 41. Result flag not changed. AST (test code = AST) 19 U/L 1-40 Refere nce range changed due to change in patient's sex at 13:35:27. Normal High changed from 32 to 40. Result flag not changed. Globulin (test code = Globulin) 2.2 g/dL 2.9-3.1 L A/G Ratio (test code = A/G Ratio) 1.7 ratio N eGFR AA (test code = eGFR AA) 8 mL/min/1.73 m2 N eGFR (estimated Glomerular Filtration Rate) is an estimated value, calculated from the patient's serum creatinine using the MDRD equation. It is NOT the patient's actual GFR. The eGFR provides a more clinically useful measure of kidney disease than serum creatinine alone.This calculation takes sex and race into account, if the information is provided. If the race is not provided, and the patient is -Prydeinig, multiply by 1.212. If sex is not provided, and the patient is female, multiply by 0.742. Results for patients <18 years of age have not been validated by the MDRD study and should be interpreted with caution. eGFR Result Interpretation:eGFR > or = 60 is in the Normal RangeeGFR < 60 may mean kidney diseaseeGFR < 15 may mean kidney failure Ranges recommended by the National Kidney Foundation, http://nkdep.nih.gov eGFR Non-AA (test code = eGFR Non-AA) 6.93 mL/min/1.73 m2 N eGFR (estimated Glomerular Filtration Rate) is an estimated value, calculated from the patient's serum creatinine using the MDRD equation. It is NOT the patient's actual GFR. The eGFR provides a more clinically useful measure of kidney disease than serum creatinine alone.This calculation takes sex and race into account, if the information is provided. If the race is not provided, and the patient is -Prydeinig, multiply by 1.212. If sex is not provided, and the patient is female, multiply by 0.742. Results for patients <18 years of age have not been validated by the MDRD study and should be interpreted with caution. eGFR Result Interpretation:eGFR > or = 60 is in the Normal RangeeGFR < 60 may mean kidney diseaseeGFR < 15 may mean kidney failure Ranges recommended by the National Kidney Foundation, http://nkdep.nih.gov Comprehensive Metabolic [id number] 04:36:01* Test Item Value Reference Range Interpretation Comments Sodium Level (test code = Sodium Level) 138.0 mmol/L 135.0-145.0 Potassium Level (test code = Potassium Level) 4.8 mmol/L 3.5-5.1 Chloride Level (test code = Chloride Level) 96 mmol/L 98-105 L CO2 (test code = CO2) 28 mmol/L 22-29 Anion Gap (test code = Anion Gap) 14 mmol/L 7-16 BUN (test code = BUN) 33.30 mg/dL 6.00-20.00 H Creatinine Level (test code = Creatinine Level) 6.30 mg/dL 0.50-0 .90 H Reference range changed due to change in patient's sex at 13:35:27. Normal Low changed from 0.50 to 0.70. Normal High changed from 0.90 to 1.20. Result flag not changed. Reference range changed due to change in patient's sex at 18:21:32. Normal Low changed from 0.70 to 0.50. Normal High changed from 1.20 to 0.90. Result flag not changed. BUN/Creat Ratio (test code = BUN/Creat Ratio) 5 N Glucose Level (test code = Glucose Level) 288 mg/dL 70-115 H Calcium Level (test code = Calcium Level) 9.0 mg/dL 8.3-10.5 Alk Phos (test code = Alk Phos) 143 U/L 35-104 H Reference range changed due to change in patient's sex at 13:35:27. Normal Low changed from 35 to 40. Normal High changed from 104 to 129. Result flag not changed. Reference range changed due to change in patient's sex at 18:21:32. Normal Low changed from 40 to 35. Normal High changed from 129 to 104. Result flag not changed. Bilirubin Total (test code = Bilirubin Total) 0.6 mg/dL 0.1-0.9 Albumin Level (test code = Albumin Level) 3.7 g/dL 3.5-5.2 Protein Total (test code = Protein Total) 5.9 g/dL 6.4-8.3 L ALT (test code = ALT) 19 U/L 1-33 Refere nce range changed due to change in patient's sex at 13:35:27. Normal High changed from 33 to 41. Result flag not changed. Reference range changed due to change in patient's sex at 18:21:32. Normal High changed from 41 to 33. Result flag not changed. AST (test code = AST) 19 U/L 1-32 Refere nce range changed due to change in patient's sex at 13:35:27. Normal High changed from 32 to 40. Result flag not changed. Reference range changed due to change in patient's sex at 18:21:32. Normal High changed from 40 to 32. Result flag not changed. Globulin (test code = Globulin) 2.2 g/dL 2.9-3.1 L A/G Ratio (test code = A/G Ratio) 1.7 ratio N eGFR AA (test code = eGFR AA) 8 mL/min/1.73 m2 N eGFR (estimated Glomerular Filtration Rate) is an estimated value, calculated from the patient's serum creatinine using the MDRD equation. It is NOT the patient's actual GFR. The eGFR provides a more clinically useful measure of kidney disease than serum creatinine alone.This calculation takes sex and race into account, if the information is provided. If the race is not provided, and the patient is -Prydeinig, multiply by 1.212. If sex is not provided, and the patient is female, multiply by 0.742. Results for patients <18 years of age have not been validated by the MDRD study and should be interpreted with caution. eGFR Result Interpretation:eGFR > or = 60 is in the Normal RangeeGFR < 60 may mean kidney diseaseeGFR < 15 may mean kidney failure Ranges recommended by the National Kidney Foundation, http://nkdep.nih.gov eGFR Non-AA (test code = eGFR Non-AA) 6.93 mL/min/1.73 m2 N eGFR (estimated Glomerular Filtration Rate) is an estimated value, calculated from the patient's serum creatinine using the MDRD equation. It is NOT the patient's actual GFR. The eGFR provides a more clinically useful measure of kidney disease than serum creatinine alone.This calculation takes sex and race into account, if the information is provided. If the race is not provided, and the patient is -Prydeinig, multiply by 1.212. If sex is not provided, and the patient is female, multiply by 0.742. Results for patients <18 years of age have not been validated by the MDRD study and should be interpreted with caution. eGFR Result Interpretation:eGFR > or = 60 is in the Normal RangeeGFR < 60 may mean kidney diseaseeGFR < 15 may mean kidney failure Ranges recommended by the National Kidney Foundation, http://nkdep.nih.gov Creatine [id number] 04:34:26* Test Item Value Reference Range Interpretation Comments CK (test code = CK) 44 U/L 26-192 Creatine [id number] 04:34:26* Test Item Value Reference Range Interpretation Comments CK (test code = CK) 44 U/L 39-308 Referenc e range changed due to change in patient's sex at 13:35:26. Normal Low changed from 26 to 39. Normal High changed from 192 to 308. Result flag not changed. Creatine [id number] 04:34:26* Test Item Value Reference Range Interpretation Comments CK (test code = CK) 44 U/L 26-192 Referenc e range changed due to change in patient's sex at 13:35:26. Normal Low changed from 26 to 39. Normal High changed from 192 to 308. Result flag not changed. Reference range zapata ged due to change in patient's sex at 18:21:32. Normal Low changed from 39 to 26. Normal High changed from 308 to 192. Result flag not changed. Creatine Kinase MB [id number] 04:32:51* Test Item Value Reference Range Interpretation Comments CKMB (test code = CKMB) 1.5 ng/mL 0.0-2.8 Creatine Kinase MB [id number] 04:32:51* Test Item Value Reference Range Interpretation Comments CKMB (test code = CKMB) 1.5 ng/mL 0.0-2.8 CKMB % (test code = CKMB %) 3.4 % 0.0-3.4 Creatine Kinase MB [id number] 04:32:51* Test Item Value Reference Range Interpretation Comments CKMB (test code = CKMB) 1.5 ng/mL 0.0-4.9 Refe rence range changed due to change in patient's sex at 13:35:26. Normal High changed from 2.8 to 4.9. Result flag not changed. CKMB % (test code = CKMB %) 3.4 % 0.0-3.4 Creatine Kinase MB [id number] 04:32:51* Test Item Value Reference Range Interpretation Comments CKMB (test code = CKMB) 1.5 ng/mL 0.0-2.8 Refe rence range changed due to change in patient's sex at 13:35:26. Normal High changed from 2.8 to 4.9. Result flag not changed. Reference range changed due to change in patient's sex at 18:21:32. Normal High changed from 4.9 to 2.8. Result flag not changed. CKMB % (test code = CKMB %) 3.4 % 0.0-3.4 Hemoglobin [id number] 04:11:56* Test Item Value Reference Range Interpretation Comments Hemoglobin A1c (test code = Hemoglobin A1c) 8.1 % 4.8-5.9 H Non Diabetic 4.8- 5.9%Diabetic <7.0% Complete Blood Count without [id number] 04:05:36* Test Item Value Reference Range Interpretation Comments WBC (test code = WBC) 9.6 x10 4.4-10.5 RBC (test code = RBC) 2.96 x10 3.75-5.20 L Hgb (test code = Hgb) 10.0 g/dL 12.2-14.8 L Hct (test code = Hct) 29.6 % 36.5-44.4 L MCV (test code = MCV) 100.00 fL 80.00-100.00 MCH (test code = MCH) 33.8 pg 27.0-32.5 H MCHC (test code = MCHC) 33.80 g/dL 32.00-37.50 RDW CV (test code = RDW CV) 12.9 % 11.5-14.5 Platelets (test code = Platelets) 220.0 x10 140.0-440.0 MPV (test code = MPV) 10.5 fL N nRBC (test code = nRBC) 0 N NRBC Abs (test code = NRBC Abs) 0.00 x10 N IPF (test code = IPF) 0 % N Complete Blood Count without [id number] 04:05:36* Test Item Value Reference Range Interpretation Comments WBC (test code = WBC) 9.6 x10 4.4-10.5 RBC (test code = RBC) 2.96 x10 4.10-5.70 L Refere nce range changed due to change in patient's sex at 13:35:27. Normal Low changed from 3.75 to 4.10. Normal High changed from 5.20 to 5.70. Result flag not changed. Hgb (test code = Hgb) 10.0 g/dL 13.4-17.4 L Refere nce range changed due to change in patient's sex at 13:35:27. Normal Low changed from 12.2 to 13.4. Normal High changed from 14.8 to 17.4. Result flag not changed. Hct (test code = Hct) 29.6 % 38.7-52.0 L Refere nce range changed due to change in patient's sex at 13:35:27. Normal Low changed from 36.5 to 38.7. Normal High changed from 44.4 to 52.0. Result flag not changed. MCV (test code = MCV) 100.00 fL 80.00-100.00 MCH (test code = MCH) 33.8 pg 27.0-32.5 H MCHC (test code = MCHC) 33.80 g/dL 32.00-37.50 RDW CV (test code = RDW CV) 12.9 % 11.5-14.5 Platelets (test code = Platelets) 220.0 x10 140.0-440.0 MPV (test code = MPV) 10.5 fL N nRBC (test code = nRBC) 0 N NRBC Abs (test code = NRBC Abs) 0.00 x10 N IPF (test code = IPF) 0 % N Complete Blood Count without [id number] 04:05:36* Test Item Value Reference Range Interpretation Comments WBC (test code = WBC) 9.6 x10 4.4-10.5 RBC (test code = RBC) 2.96 x10 3.75-5.20 L Refere nce range changed due to change in patient's sex at 13:35:27. Normal Low changed from 3.75 to 4.10. Normal High changed from 5.20 to 5.70. Result flag not changed. Reference range changed due to change in patient's sex at 18:21:32. Normal Low changed from 4.10 to 3.75. Normal High changed from 5.70 to 5.20. Result flag not changed. Hgb (test code = Hgb) 10.0 g/dL 12.2-14.8 L Refere nce range changed due to change in patient's sex at 13:35:27. Normal Low changed from 12.2 to 13.4. Normal High changed from 14.8 to 17.4. Result flag not changed. Reference range changed due to change in patient's sex at 18:21:32. Normal Low changed from 13.4 to 12.2. Normal High changed from 17.4 to 14.8. Result flag not changed. Hct (test code = Hct) 29.6 % 36.5-44.4 L Refere nce range changed due to change in patient's sex at 13:35:27. Normal Low changed from 36.5 to 38.7. Normal High changed from 44.4 to 52.0. Result flag not changed. Reference range changed due to change in patient's sex at 18:21:32. Normal Low changed from 38.7 to 36.5. Normal High changed from 52.0 to 44.4. Result flag not changed. MCV (test code = MCV) 100.00 fL 80.00-100.00 MCH (test code = MCH) 33.8 pg 27.0-32.5 H MCHC (test code = MCHC) 33.80 g/dL 32.00-37.50 RDW CV (test code = RDW CV) 12.9 % 11.5-14.5 Platelets (test code = Platelets) 220.0 x10 140.0-440.0 MPV (test code = MPV) 10.5 fL N nRBC (test code = nRBC) 0 N NRBC Abs (test code = NRBC Abs) 0.00 x10 N IPF (test code = IPF) 0 % N Troponin [id number] 01:28:22* Test Item Value Reference Range Interpretation Comments Troponin-T (test code = Troponin-T) 95.070 ng/L 0.000-14.000 The CV of the assay at 99th percentile for both male and female patient population is < 10%. A rise and fall in GILLIAN with at least one value above the 99th percentile with clinical evidence of myocardial ischemia would support a diagnosis of AMI. A delta of at least 20% is recommended to assess acute changes in results above the 99th percentile in serial measurements. Stable GILLIAN levels (<20%) delta above the 99th percentile URL would support a diagnosis of chronic myocardial injury.Critical results called to Torey ESTRADA at06/25/2019 01:28:09 CDT _ by RS_. Read back and verified? _yes Troponin [id number] 01:28:22* Test Item Value Reference Range Interpretation Comments Troponin-T (test code = Troponin-T) 95.070 ng/L 0.000-22.000 Critical results called to Torey ESTRADA at06/25/2019 01:28:09 CDT _ by RS_. Read back and verified? _yes Reference range changed due to change in patient's sex at 13:35:28. Normal High changed from 14.000 to 22.000. Result flag not changed.Critical results called to Torey ESTRADA at06/25/2019 01:28:09 CDT _ by RS_. Read back and verified? _yesThe CV of the assay at 99th percentile for [facility] male and female patient population is < 10%. A rise and fall in GILLIAN with at least one value above the 99th percentile with clinical evidence of myocardial ischemia would support a diagnosis of AMI. A delta of at least 20% is recommended to assess acute changes in results above the 99th percentile in serial measurements. Stable GILLIAN levels (<20%) delta above the 99th percentile URL would support a diagnosis of chronic myocardial injury. Troponin [id number] 01:28:22* Test Item Value Reference Range Interpretation Comments Troponin-T (test code = Troponin-T) 95.070 ng/L 0.000-14.000 Critical results called to Torey ESTRADA at06/25/2019 01:28:09 CDT _ by RS_. Read back and verified? _yes Reference range changed due to change in patient's sex at 13:35:28. Normal High changed from 14.000 to 22.000. Result flag not changed. Reference range changed due to change in patient's sex at 18:21:34. Normal High changed from 22.000 to 14.000. Result flag not changed .Critical results called to Torey ESTRADA at06/25/2019 01:28:09 CDT _ by RS_. Read back and verified? _yesThe CV of the assay at 99th percentile for both male and female patient population is < 10%. A rise and fall in GILLIAN with at least one value above the 99th percentile with clinical evidence of myocardial ischemia would support a diagnosis of AMI. A delta of at least 20% is recommended to assess acute changes in results above the 99th percentile in serial measurements. Stable GILLIAN levels (<20%) delta above the 99th percentile URL would support a diagnosis of chronic myocardial injury. POC [id number] 00:40:44* Test Item Value Reference Range Interpretation Comments Glucose POC (test code = Glucose POC) 342 mg/dL 70-115 H Notify RN or If you consider your patient critically ill, the Larry-Accu Check Infrom II meter should not be used for Glucose determination. Draw a venous Glucose and send to the main Lab for analysis. Troponin [id number] 22:19:18* Test Item Value Reference Range Interpretation Comments Troponin-T (test code = Troponin-T) 87.700 ng/L 0.000-14.000 The CV of the assay at 99th percentile for both male and female patient population is < 10%. A rise and fall in GILLIAN with at least one value above the 99th percentile with clinical evidence of myocardial ischemia would support a diagnosis of AMI. A delta of at least 20% is recommended to assess acute changes in results above the 99th percentile in serial measurements. Stable GILLIAN levels (<20%) delta above the 99th percentile URL would support a diagnosis of chronic myocardial injury.Critical results called to Jennifer ESTRADA at 06/24/2019 22:19:04 CDT_ by _RS. Read back and verified? _yes Troponin [id number] 22:19:18* Test Item Value Reference Range Interpretation Comments Troponin-T (test code = Troponin-T) 87.700 ng/L 0.000-22.000 Critical results called to Jennifer ESTRADA at 06/24/2019 22:19:04 CDT_ by _RS. Read back and verified? _yes Reference range changed due to change in patient's sex at 13:35:29. Normal High changed from 14.000 to 22.000. Result flag not changed.Critical results called to Jennifer ESTRADA at 06/24/2019 22:19:04 CDT_ by _RS. Read back and verified? _yesThe CV of the assay at 99th percentile for bot h male and female patient population is < 10%. A rise and fall in GILLIAN with at least one value above the 99th percentile with clinical evidence of myocardial ischemia would support a diagnosis of AMI. A delta of at least 20% is recommended to assess acute changes in results above the 99th percentile in serial measurements. Stable GILLIAN levels (<20%) delta above the 99th percentile URL would support a diagnosis of chronic myocardial injury. Troponin [id number] 22:19:18* Test Item Value Reference Range Interpretation Comments Troponin-T (test code = Troponin-T) 87.700 ng/L 0.000-14.000 Critical results called to Jennifer ESTRADA at 06/24/2019 22:19:04 CDT_ by _RS. Read back and verified? _yes Reference range changed due to change in patient's sex at 13:35:29. Normal High changed from 14.000 to 22.000. Result flag not changed. Reference range changed due to change in patient's sex at 18:21:34. Normal High changed from 22.000 to 14.000. Result flag not changed. Critical results called to Jennifer ESTRADA at 06/24/2019 22:19:04 CDT_ by _RS. Read back and verified? _yesThe CV of the assay at 99th percentile for both male and female patient population is < 10%. A rise and fall in GILLIAN with at least one value above the 99th percentile with clinical evidence of myocardial ischemia would support a diagnosis of AMI. A delta of at least 20% is recommended to assess acute changes in results above the 99th percentile in serial measurements. Stable GILLIAN levels (<20%) delta above the 99th percentile URL would support a diagnosis of chronic myocardial injury. Comprehensive Metabolic [id number] 19:59:38* Test Item Value Reference Range Interpretation Comments Sodium Level (test code = Sodium Level) 133.0 mmol/L 135.0-145.0 L Potassium Level (test code = Potassium Level) 5.0 mmol/L 3.5-5.1 Chloride Level (test code = Chloride Level) 91 mmol/L 98-105 L CO2 (test code = CO2) 27 mmol/L 22-29 Anion Gap (test code = Anion Gap) 15 mmol/L 7-16 BUN (test code = BUN) 28.80 mg/dL 6.00-20.00 H Creatinine Level (test code = Creatinine Level) 5.60 mg/dL 0.50-0 .90 H BUN/Creat Ratio (test code = BUN/Creat Ratio) 5 N Glucose Level (test code = Glucose Level) 506 mg/dL 70-115 Critical results called to Jennifer Desai at 06/24/2019 19:59:05 CDT by EO. Read back and verified? YES Calcium Level (test code = Calcium Level) 8.6 mg/dL 8.3-10.5 Alk Phos (test code = Alk Phos) 182 U/L 35-104 H Bilirubin Total (test code = Bilirubin Total) 0.6 mg/dL 0.1-0.9 Albumin Level (test code = Albumin Level) 3.9 g/dL 3.5-5.2 Protein Total (test code = Protein Total) 6.9 g/dL 6.4-8.3 ALT (test code = ALT) 23 U/L 1-33 AST (test code = AST) 24 U/L 1-32 Globulin (test code = Globulin) 3.0 g/dL 2.9-3.1 A/G Ratio (test code = A/G Ratio) 1.3 ratio N eGFR AA (test code = eGFR AA) 10 mL/min/1.73 m2 N eGFR (estimated Glomerular Filtration Rate) is an estimated value, calculated from the patient's serum creatinine using the MDRD equation. It is NOT the patient's actual GFR. The eGFR provides a more clinically useful measure of kidney disease than serum creatinine alone.This calculation takes sex and race into account, if the information is provided. If the race is not provided, and the patient is -Prydeinig, multiply by 1.212. If sex is not provided, and the patient is female, multiply by 0.742. Results for patients <18 years of age have not been validated by the MDRD study and should be interpreted with caution. eGFR Result Interpretation:eGFR > or = 60 is in the Normal RangeeGFR < 60 may mean kidney diseaseeGFR < 15 may mean kidney failure Ranges recommended by the National Kidney Foundation, http://nkdep.nih.gov Comprehensive Metabolic [id number] 19:59:38* Test Item Value Reference Range Interpretation Comments Sodium Level (test code = Sodium Level) 133.0 mmol/L 135.0-145.0 L Potassium Level (test code = Potassium Level) 5.0 mmol/L 3.5-5.1 Chloride Level (test code = Chloride Level) 91 mmol/L 98-105 L CO2 (test code = CO2) 27 mmol/L 22-29 Anion Gap (test code = Anion Gap) 15 mmol/L 7-16 BUN (test code = BUN) 28.80 mg/dL 6.00-20.00 H Creatinine Level (test code = Creatinine Level) 5.60 mg/dL 0.50-0 .90 H BUN/Creat Ratio (test code = BUN/Creat Ratio) 5 N Glucose Level (test code = Glucose Level) 506 mg/dL 70-115 Critical results called to Jennifer Desai at 06/24/2019 19:59:05 CDT by EO. Read back and verified? YES Calcium Level (test code = Calcium Level) 8.6 mg/dL 8.3-10.5 Alk Phos (test code = Alk Phos) 182 U/L 35-104 H Bilirubin Total (test code = Bilirubin Total) 0.6 mg/dL 0.1-0.9 Albumin Level (test code = Albumin Level) 3.9 g/dL 3.5-5.2 Protein Total (test code = Protein Total) 6.9 g/dL 6.4-8.3 ALT (test code = ALT) 23 U/L 1-33 AST (test code = AST) 24 U/L 1-32 Globulin (test code = Globulin) 3.0 g/dL 2.9-3.1 A/G Ratio (test code = A/G Ratio) 1.3 ratio N eGFR AA (test code = eGFR AA) 10 mL/min/1.73 m2 N eGFR (estimated Glomerular Filtration Rate) is an estimated value, calculated from the patient's serum creatinine using the MDRD equation. It is NOT the patient's actual GFR. The eGFR provides a more clinically useful measure of kidney disease than serum creatinine alone.This calculation takes sex and race into account, if the information is provided. If the race is not provided, and the patient is -Prydeinig, multiply by 1.212. If sex is not provided, and the patient is female, multiply by 0.742. Results for patients <18 years of age have not been validated by the MDRD study and should be interpreted with caution. eGFR Result Interpretation:eGFR > or = 60 is in the Normal RangeeGFR < 60 may mean kidney diseaseeGFR < 15 may mean kidney failure Ranges recommended by the National Kidney Foundation, http://nkdep.nih.gov Creatine [id number] 19:59:38* Test Item Value Reference Range Interpretation Comments CK (test code = CK) 60 U/L 26-192 Creatine Kinase MB [id number] 19:59:38* Test Item Value Reference Range Interpretation Comments CKMB (test code = CKMB) 2.0 ng/mL 0.0-2.8 CKMB % (test code = CKMB %) 3.3 % 0.0-3.4 Pro B Natriuretic [id number] 19:59:38* Test Item Value Reference Range Interpretation Comments NT-proBNP (test code = NT-proBNP) >11965 pg/mL 0-124 H Comprehensive Metabolic [id number] 19:59:38* Test Item Value Reference Range Interpretation Comments Sodium Level (test code = Sodium Level) 133.0 mmol/L 135.0-145.0 L Potassium Level (test code = Potassium Level) 5.0 mmol/L 3.5-5.1 Chloride Level (test code = Chloride Level) 91 mmol/L 98-105 L CO2 (test code = CO2) 27 mmol/L 22-29 Anion Gap (test code = Anion Gap) 15 mmol/L 7-16 BUN (test code = BUN) 28.80 mg/dL 6.00-20.00 H Creatinine Level (test code = Creatinine Level) 5.60 mg/dL 0.50-0 .90 H BUN/Creat Ratio (test code = BUN/Creat Ratio) 5 N Glucose Level (test code = Glucose Level) 506 mg/dL 70-115 Critical results called to Jennifer Desai at 06/24/2019 19:59:05 CDT by EO. Read back and verified? YES Calcium Level (test code = Calcium Level) 8.6 mg/dL 8.3-10.5 Alk Phos (test code = Alk Phos) 182 U/L 35-104 H Bilirubin Total (test code = Bilirubin Total) 0.6 mg/dL 0.1-0.9 Albumin Level (test code = Albumin Level) 3.9 g/dL 3.5-5.2 Protein Total (test code = Protein Total) 6.9 g/dL 6.4-8.3 ALT (test code = ALT) 23 U/L 1-33 AST (test code = AST) 24 U/L 1-32 Globulin (test code = Globulin) 3.0 g/dL 2.9-3.1 A/G Ratio (test code = A/G Ratio) 1.3 ratio N eGFR AA (test code = eGFR AA) 10 mL/min/1.73 m2 N eGFR (estimated Glomerular Filtration Rate) is an estimated value, calculated from the patient's serum creatinine using the MDRD equation. It is NOT the patient's actual GFR. The eGFR provides a more clinically useful measure of kidney disease than serum creatinine alone.This calculation takes sex and race into account, if the information is provided. If the race is not provided, and the patient is -Prydeinig, multiply by 1.212. If sex is not provided, and the patient is female, multiply by 0.742. Results for patients <18 years of age have not been validated by the MDRD study and should be interpreted with caution. eGFR Result Interpretation:eGFR > or = 60 is in the Normal RangeeGFR < 60 may mean kidney diseaseeGFR < 15 may mean kidney failure Ranges recommended by the National Kidney Foundation, http://nkdep.nih.gov eGFR Non-AA (test code = eGFR Non-AA) 7.94 mL/min/1.73 m2 N eGFR (estimated Glomerular Filtration Rate) is an estimated value, calculated from the patient's serum creatinine using the MDRD equation. It is NOT the patient's actual GFR. The eGFR provides a more clinically useful measure of kidney disease than serum creatinine alone.This calculation takes sex and race into account, if the information is provided. If the race is not provided, and the patient is -Prydeinig, multiply by 1.212. If sex is not provided, and the patient is female, multiply by 0.742. Results for patients <18 years of age have not been validated by the MDRD study and should be interpreted with caution. eGFR Result Interpretation:eGFR > or = 60 is in the Normal RangeeGFR < 60 may mean kidney diseaseeGFR < 15 may mean kidney failure Ranges recommended by the National Kidney Foundation, http://nkdep.nih.gov Troponin [id number] 19:59:38* Test Item Value Reference Range Interpretation Comments Troponin-T (test code = Troponin-T) 98.160 ng/L 0.000-14.000 The CV of the assay at 99th percentile for both male and female patient population is < 10%. A rise and fall in GILLIAN with at least one value above the 99th percentile with clinical evidence of myocardial ischemia would support a diagnosis of AMI. A delta of at least 20% is recommended to assess acute changes in results above the 99th percentile in serial measurements. Stable GILLIAN levels (<20%) delta above the 99th percentile URL would support a diagnosis of chronic myocardial injury.Critical results called to Jennifer Desai at 06/24/2019 19:59:05 CDT by EO. Read back and verified? YES Comprehensive Metabolic [id number] 19:59:38* Test Item Value Reference Range Interpretation Comments Sodium Level (test code = Sodium Level) 133.0 mmol/L 135.0-145.0 L Potassium Level (test code = Potassium Level) 5.0 mmol/L 3.5-5.1 Chloride Level (test code = Chloride Level) 91 mmol/L 98-105 L CO2 (test code = CO2) 27 mmol/L 22-29 Anion Gap (test code = Anion Gap) 15 mmol/L 7-16 BUN (test code = BUN) 28.80 mg/dL 6.00-20.00 H Creatinine Level (test code = Creatinine Level) 5.60 mg/dL 0.70-1 .20 H Reference range changed due to change in patient's sex at 13:35:29. Normal Low changed from 0.50 to 0.70. Normal High changed from 0.90 to 1.20. Result flag not changed. BUN/Creat Ratio (test code = BUN/Creat Ratio) 5 N Glucose Level (test code = Glucose Level) 506 mg/dL 70-115 Critical results called to Jennifer Desai at 06/24/2019 19:59:05 CDT by EO. Read back and verified? YES Calcium Level (test code = Calcium Level) 8.6 mg/dL 8.3-10.5 Alk Phos (test code = Alk Phos) 182 U/L 40-129 H Reference range changed due to change in patient's sex at 13:35:29. Normal Low changed from 35 to 40. Normal High changed from 104 to 129. Result flag not changed. Bilirubin Total (test code = Bilirubin Total) 0.6 mg/dL 0.1-0.9 Albumin Level (test code = Albumin Level) 3.9 g/dL 3.5-5.2 Protein Total (test code = Protein Total) 6.9 g/dL 6.4-8.3 ALT (test code = ALT) 23 U/L 1-41 Refere nce range changed due to change in patient's sex at 13:35:29. Normal High changed from 33 to 41. Result flag not changed. AST (test code = AST) 24 U/L 1-40 Refere nce range changed due to change in patient's sex at 13:35:29. Normal High changed from 32 to 40. Result flag not changed. Globulin (test code = Globulin) 3.0 g/dL 2.9-3.1 A/G Ratio (test code = A/G Ratio) 1.3 ratio N eGFR AA (test code = eGFR AA) 10 mL/min/1.73 m2 N eGFR (estimated Glomerular Filtration Rate) is an estimated value, calculated from the patient's serum creatinine using the MDRD equation. It is NOT the patient's actual GFR. The eGFR provides a more clinically useful measure of kidney disease than serum creatinine alone.This calculation takes sex and race into account, if the information is provided. If the race is not provided, and the patient is -Prydeinig, multiply by 1.212. If sex is not provided, and the patient is female, multiply by 0.742. Results for patients <18 years of age have not been validated by the MDRD study and should be interpreted with caution. eGFR Result Interpretation:eGFR > or = 60 is in the Normal RangeeGFR < 60 may mean kidney diseaseeGFR < 15 may mean kidney failure Ranges recommended by the National Kidney Foundation, http://nkdep.nih.gov eGFR Non-AA (test code = eGFR Non-AA) 7.94 mL/min/1.73 m2 N eGFR (estimated Glomerular Filtration Rate) is an estimated value, calculated from the patient's serum creatinine using the MDRD equation. It is NOT the patient's actual GFR. The eGFR provides a more clinically useful measure of kidney disease than serum creatinine alone.This calculation takes sex and race into account, if the information is provided. If the race is not provided, and the patient is -Prydeinig, multiply by 1.212. If sex is not provided, and the patient is female, multiply by 0.742. Results for patients <18 years of age have not been validated by the MDRD study and should be interpreted with caution. eGFR Result Interpretation:eGFR > or = 60 is in the Normal RangeeGFR < 60 may mean kidney diseaseeGFR < 15 may mean kidney failure Ranges recommended by the National Kidney Foundation, http://nkdep.nih.gov Creatine [id number] 19:59:38* Test Item Value Reference Range Interpretation Comments CK (test code = CK) 60 U/L 39-308 Referenc e range changed due to change in patient's sex at 13:35:29. Normal Low changed from 26 to 39. Normal High changed from 192 to 308. Result flag not changed. Creatine Kinase MB [id number] 19:59:38* Test Item Value Reference Range Interpretation Comments CKMB (test code = CKMB) 2.0 ng/mL 0.0-4.9 Refe rence range changed due to change in patient's sex at 13:35:29. Normal High changed from 2.8 to 4.9. Result flag not changed. CKMB % (test code = CKMB %) 3.3 % 0.0-3.4 Troponin [id number] 19:59:38* Test Item Value Reference Range Interpretation Comments Troponin-T (test code = Troponin-T) 98.160 ng/L 0.000-22.000 Critical results called to Jennifer Desai at 06/24/2019 19:59:05 CDT by EO. Read back and verified? YES Reference range changed due to change in patient's sex at 13:35:29. Normal High changed from 14.000 to 22.000. Result flag not changed.Critical results called to Jennifer Desai at 06/24/2019 19:59:05 CDT by EO. Read back and verified? YESThe CV of the assay at 99th percentile for both male and female patient population is < 10%. A rise and fall in GILLIAN with at least one value above the 99th percentile with clinical evidence of myocardial ischemia would support a diagnosis of AMI. A delta of at least 20% is recommended to assess acute changes in results above the 99th percentile in serial measurements. Stable GILLIAN levels (<20%) delta above the 99th percentile URL would support a diagnosis of chronic myocardial injury. Comprehensive Metabolic [id number] 19:59:38* Test Item Value Reference Range Interpretation Comments Sodium Level (test code = Sodium Level) 133.0 mmol/L 135.0-145.0 L Potassium Level (test code = Potassium Level) 5.0 mmol/L 3.5-5.1 Chloride Level (test code = Chloride Level) 91 mmol/L 98-105 L CO2 (test code = CO2) 27 mmol/L 22-29 Anion Gap (test code = Anion Gap) 15 mmol/L 7-16 BUN (test code = BUN) 28.80 mg/dL 6.00-20.00 H Creatinine Level (test code = Creatinine Level) 5.60 mg/dL 0.50-0 .90 H Reference range changed due to change in patient's sex at 13:35:29. Normal Low changed from 0.50 to 0.70. Normal High changed from 0.90 to 1.20. Result flag not changed. Reference range changed due to change in patient's sex at 18:21:34. Normal Low changed from 0.70 to 0.50. Normal High changed from 1.20 to 0.90. Result flag not changed. BUN/Creat Ratio (test code = BUN/Creat Ratio) 5 N Glucose Level (test code = Glucose Level) 506 mg/dL 70-115 Critical results called to Jennifer Desai at 06/24/2019 19:59:05 CDT by EO. Read back and verified? YES Calcium Level (test code = Calcium Level) 8.6 mg/dL 8.3-10.5 Alk Phos (test code = Alk Phos) 182 U/L 35-104 H Reference range changed due to change in patient's sex at 13:35:29. Normal Low changed from 35 to 40. Normal High changed from 104 to 129. Result flag not changed. Reference range changed due to change in patient's sex at 18:21:34. Normal Low changed from 40 to 35. Normal High changed from 129 to 104. Result flag not changed. Bilirubin Total (test code = Bilirubin Total) 0.6 mg/dL 0.1-0.9 Albumin Level (test code = Albumin Level) 3.9 g/dL 3.5-5.2 Protein Total (test code = Protein Total) 6.9 g/dL 6.4-8.3 ALT (test code = ALT) 23 U/L 1-33 Refere nce range changed due to change in patient's sex at 13:35:29. Normal High changed from 33 to 41. Result flag not changed. Reference range changed due to change in patient's sex at 18:21:34. Normal High changed from 41 to 33. Result flag not changed. AST (test code = AST) 24 U/L 1-32 Refere nce range changed due to change in patient's sex at 13:35:29. Normal High changed from 32 to 40. Result flag not changed. Reference range changed due to change in patient's sex at 18:21:34. Normal High changed from 40 to 32. Result flag not changed. Globulin (test code = Globulin) 3.0 g/dL 2.9-3.1 A/G Ratio (test code = A/G Ratio) 1.3 ratio N eGFR AA (test code = eGFR AA) 10 mL/min/1.73 m2 N eGFR (estimated Glomerular Filtration Rate) is an estimated value, calculated from the patient's serum creatinine using the MDRD equation. It is NOT the patient's actual GFR. The eGFR provides a more clinically useful measure of kidney disease than serum creatinine alone.This calculation takes sex and race into account, if the information is provided. If the race is not provided, and the patient is -Prydeinig, multiply by 1.212. If sex is not provided, and the patient is female, multiply by 0.742. Results for patients <18 years of age have not been validated by the MDRD study and should be interpreted with caution. eGFR Result Interpretation:eGFR > or = 60 is in the Normal RangeeGFR < 60 may mean kidney diseaseeGFR < 15 may mean kidney failure Ranges recommended by the National Kidney Foundation, http://nkdep.nih.gov eGFR Non-AA (test code = eGFR Non-AA) 7.94 mL/min/1.73 m2 N eGFR (estimated Glomerular Filtration Rate) is an estimated value, calculated from the patient's serum creatinine using the MDRD equation. It is NOT the patient's actual GFR. The eGFR provides a more clinically useful measure of kidney disease than serum creatinine alone.This calculation takes sex and race into account, if the information is provided. If the race is not provided, and the patient is -Prydeinig, multiply by 1.212. If sex is not provided, and the patient is female, multiply by 0.742. Results for patients <18 years of age have not been validated by the MDRD study and should be interpreted with caution. eGFR Result Interpretation:eGFR > or = 60 is in the Normal RangeeGFR < 60 may mean kidney diseaseeGFR < 15 may mean kidney failure Ranges recommended by the National Kidney Foundation, http://nkdep.nih.gov Creatine [id number] 19:59:38* Test Item Value Reference Range Interpretation Comments CK (test code = CK) 60 U/L 26-192 Referenc e range changed due to change in patient's sex at 13:35:29. Normal Low changed from 26 to 39. Normal High changed from 192 to 308. Result flag not changed. Reference range zapata ged due to change in patient's sex at 18:21:34. Normal Low changed from 39 to 26. Normal High changed from 308 to 192. Result flag not changed. Creatine Kinase MB [id number] 19:59:38* Test Item Value Reference Range Interpretation Comments CKMB (test code = CKMB) 2.0 ng/mL 0.0-2.8 Refe rence range changed due to change in patient's sex at 13:35:29. Normal High changed from 2.8 to 4.9. Result flag not changed. Reference range changed due to change in patient's sex at 18:21:34. Normal High changed from 4.9 to 2.8. Result flag not changed. CKMB % (test code = CKMB %) 3.3 % 0.0-3.4 Troponin [id number] 19:59:38* Test Item Value Reference Range Interpretation Comments Troponin-T (test code = Troponin-T) 98.160 ng/L 0.000-14.000 Critical results called to Jennifer Desai at 06/24/2019 19:59:05 CDT by EO. Read back and verified? YES Reference range changed due to change in patient's sex at 13:35:29. Normal High changed from 14.000 to 22.000. Result flag not changed. Reference range changed due to change in patient's sex at 18:21:34. Normal High changed from 22.000 to 14.000. Result flag not changed.Critical results called to Jennifer Desai at 06/24/2019 19:59:05 CDT by EO. Read back and verified? YESThe CV of the assay at 99th percentile for both male and female patient population is < 10%. A rise and fall in GILLIAN with at least one value above the 99th percentile with clinical evidence of myocardial ischemia would support a diagnosis of AMI. A delta of at least 20% is recommended to assess acute changes in results above the 99th percentile in serial measurements. Stable GILLIAN levels (<20%) delta above the 99th percentile URL would support a diagnosis of chronic myocardial injury. Prothrombin Time and [id number] 19:24:48* Test Item Value Reference Range Interpretation Comments Prothrombin Time (test code = Prothrombin Time) 11.2 seconds 9.8-13 .4 INR (test code = INR) 1.0 ratio 0.6-1.2 Partial Thromboplastin [id number] 19:24:48* Test Item Value Reference Range Interpretation Comments Partial Thromboplastin Time (test code = Partial Throm boplastin Time) 32.40 seconds 24.39-37.25 Automated [id number] 19:13:40* Test Item Value Reference Range Interpretation Comments Neutro Auto (test code = Neutro Auto) 72.3 % 36.0-70.0 H Lymph Auto (test code = Lymph Auto) 17.1 % 12.0-44.0 Wallace Auto (test code = Wallace Auto) 6.5 % 0.0-11.0 Eos, Auto (test code = Eos, Auto) 3.1 % 0.0-7.0 Basophil Auto (test code = Basophil Auto) 0.5 % 0.0-2.0 Neutro Absolute (test code = Neutro Absolute) 5.4 x10 1.6-7.4 Lymph Absolute (test code = Lymph Absolute) 1.28 x10 .50-4.60 Wallace Absolute (test code = Wallace Absolute) .49 x10 .00-1.20 Eos Absolute (test code = Eos Absolute) 0.23 x10 0.00-0.74 Baso Absolute (test code = Baso Absolute) 0.04 x10 0.00-0.21 IG [id number] 19:13:40* Test Item Value Reference Range Interpretation Comments IG (test code = IG) 0.5 % 0.0-5.0 IG Abs (test code = IG Abs) 0 x10 N Complete Blood Count with [id number] 19:13:39* Test Item Value Reference Range Interpretation Comments WBC (test code = WBC) 7.5 x10 4.4-10.5 RBC (test code = RBC) 2.96 x10 3.75-5.20 L Hgb (test code = Hgb) 10.1 g/dL 12.2-14.8 L MCV (test code = MCV) 102.00 fL 80.00-100.00 H Hct (test code = Hct) 30.2 % 36.5-44.4 L MCHC (test code = MCHC) 33.40 g/dL 32.00-37.50 RDW CV (test code = RDW CV) 12.8 % 11.5-14.5 MCH (test code = MCH) 34.1 pg 27.0-32.5 H Platelets (test code = Platelets) 220.0 x10 140.0-440.0 MPV (test code = MPV) 10.6 fL N Slide Review (test code = Slide Review) Auto Auto Result created by [email or web address] nRBC (test code = nRBC) 0 N NRBC Abs (test code = NRBC Abs) 0.00 x10 N IPF (test code = IPF) 0 % N Complete Blood Count with [id number] 19:13:39* Test Item Value Reference Range Interpretation Comments WBC (test code = WBC) 7.5 x10 4.4-10.5 RBC (test code = RBC) 2.96 x10 4.10-5.70 L Refere nce range changed due to change in patient's sex at 13:35:29. Normal Low changed from 3.75 to 4.10. Normal High changed from 5.20 to 5.70. Result flag not changed. Hgb (test code = Hgb) 10.1 g/dL 13.4-17.4 L Refere nce range changed due to change in patient's sex at 13:35:29. Normal Low changed from 12.2 to 13.4. Normal High changed from 14.8 to 17.4. Result flag not changed. MCV (test code = MCV) 102.00 fL 80.00-100.00 H Hct (test code = Hct) 30.2 % 38.7-52.0 L Refere nce range changed due to change in patient's sex at 13:35:29. Normal Low changed from 36.5 to 38.7. Normal High changed from 44.4 to 52.0. Result flag not changed. MCHC (test code = MCHC) 33.40 g/dL 32.00-37.50 MCH (test code = MCH) 34.1 pg 27.0-32.5 H RDW CV (test code = RDW CV) 12.8 % 11.5-14.5 Platelets (test code = Platelets) 220.0 x10 140.0-440.0 MPV (test code = MPV) 10.6 fL N Slide Review (test code = Slide Review) Auto Auto Result created by [email or web address]_AUTO nRBC (test code = nRBC) 0 N NRBC Abs (test code = NRBC Abs) 0.00 x10 N IPF (test code = IPF) 0 % N Complete Blood Count with [id number] 19:13:39* Test Item Value Reference Range Interpretation Comments WBC (test code = WBC) 7.5 x10 4.4-10.5 RBC (test code = RBC) 2.96 x10 3.75-5.20 L Refere nce range changed due to change in patient's sex at 13:35:29. Normal Low changed from 3.75 to 4.10. Normal High changed from 5.20 to 5.70. Result flag not changed. Reference range changed due to change in patient's sex at 18:21:34. Normal Low changed from 4.10 to 3.75. Normal High changed from 5.70 to 5.20. Result flag not changed. Hgb (test code = Hgb) 10.1 g/dL 12.2-14.8 L Refere nce range changed due to change in patient's sex at 13:35:29. Normal Low changed from 12.2 to 13.4. Normal High changed from 14.8 to 17.4. Result flag not changed. Reference range changed due to change in patient's sex at 18:21:34. Normal Low changed from 13.4 to 12.2. Normal High changed from 17.4 to 14.8. Result flag not changed. MCV (test code = MCV) 102.00 fL 80.00-100.00 H Hct (test code = Hct) 30.2 % 36.5-44.4 L Refere nce range changed due to change in patient's sex at 13:35:29. Normal Low changed from 36.5 to 38.7. Normal High changed from 44.4 to 52.0. Result flag not changed. Reference range changed due to change in patient's sex at 18:21:34. Normal Low changed from 38.7 to 36.5. Normal High changed from 52.0 to 44.4. Result flag not changed. MCHC (test code = MCHC) 33.40 g/dL 32.00-37.50 MCH (test code = MCH) 34.1 pg 27.0-32.5 H RDW CV (test code = RDW CV) 12.8 % 11.5-14.5 Platelets (test code = Platelets) 220.0 x10 140.0-440.0 MPV (test code = MPV) 10.6 fL N Slide Review (test code = Slide Review) Auto Auto Result created by GL_SJM_SLIDE_REV_AUTO nRBC (test code = nRBC) 0 N NRBC Abs (test code = NRBC Abs) 0.00 x10 N IPF (test code = IPF) 0 % N XR Chest 1 View [id number] 19:07:54Patient: DAYO GARDINER Date/Time06/24/2019 18:44 CDTReason for ExamChest painReportEXAM: Portable chest one view.Location code: T1Sctsraq: Chest painCOMPARISON: None available.COMMENT: AP portableview of the chest was obtained.Bandlike opacities are identified in the left lung base and left midlung. There is a small left pleural effusion. There is no pneumothorax.There is slight prominence of interstitial markingsCardiac silhouette is mildly enlarged.Visualized skeletal structures are within normal limits.IMPRESSION:1. Small left pleural effusion.2. Bandlike scarring versus subsegmental atelectasis in the left mid and lower lung.3. Mild cardiomegaly and prominence of interstitial markings which may indicate edema. Final Dictated by: MD Garibay Alan FDictated DT/TM: 06/24/2019 7:06 pmSigned by: MD Garibay Alan FSigned (Electronic Signature): 06/24/2019 7:07 pm- US ABDOMEN [id number] 03:46:00 Name: DAYO GARDINER [facility] : 1965 Age/S: 53 / F [address] Unit #: [id number] Loc: [place] [address] Phys: Vilma Villarreal MD Acct: [id number] Dis Date: Status: REG ER PHONE #: [phone] Exam Date: 05/09/2019 032 FAX #: [phone] Reason: abd duran EXAMS: CPT CODE: [id number] US ABDOMEN LTD [address]9933 DICTATION LOCATION: H48 HISTORY: Female, 53 years of age with abdominal pain EXAM: ULTRASOUND OF THE RIGHT UPPER QUADRANT COMPARISON: Correlation made with CT abdomen and pelvis with contrast performed 1 hour prior TECHNIQUE: Real-time grayscale 2-D imaging, Doppler spectral analysis, and Doppler color flow imaging were performed with the variable megahertz curved array transducer transabdominally. FINDINGS: PANCREAS: Obscured by bowel gas. GALLBLADDER: No stones, sludge, or wall thickening. There is no pericholecystic fluid. COMMON BILE DUCT: 3.3 mm, normal caliber. LIVER: Normal in echogenicity. No focal mass or enlargement. Portal vein is patent with appropriate hepatopedal flow. RIGHT KIDNEY: Right kidney is moderately atrophic measuring 8.2 x 3.7 x 4.1 cm. No hydronephrosis, calculus, or mass. OTHER: There is no ascites. IMPRESSION: 1. Gallbladder and biliary tree normal. 2. Atrophic right kidney. at 0346 Reported and signed by: Katerina Ruano MD CC: Vilma Villarreal MD; Mike Forbes Technologist: LEESA DAWN RDMS Trnscb Date/Time: 05/09/2019 (345) Maira Orig Print D/T: S: 05/09/2019 (0349) Probe: PAGE 1 Signed Report - CT ABD PELVIS W/[id number] 02:33:00 Name: DAYO GARDINER [facility] : 1965 Age/S: 53 / F [address] Unit #: [id number] Loc: [place] [address] Phys: Vilma Villarreal MD Acct: [id number] Dis Date: Status: REG ER PHONE #: [phone] Exam Date: 05/09/2019 0155 FAX #: [phone] Reason: flank/rlq pain EXAMS: CPT CODE: [id number] CT ABD PELVIS W/CONT 78366 CT abdomen and pelvis with IV contrast. Indication: Right lower quadrant, flank pain R16 Comparison: April 15, 2019 Technique: CT images of the abdomen and pelvis were obtained from the diaphragm to the pubic symphysis after the administration of intravenous contrast contrast. Coronal reformats are provided. One or more of the following dose reduction techniques were used: Automated exposure control, adjustment of the mA and/or kV according to patient size, and/or utilization of iterative reconstruction technique. Findings: Lungs bases: Trace left effusion Upper GI: Post gastric surgery changes are noted Liver: Unremarkable. Gallbladder: Nonspecific distention of the gallbladder. Pancreas: Unremarkable. Spleen: Unremarkable. Adrenal glands: Unremarkable. Kidneys: Questionable bilateral renal atrophy Bowel: No bowel obstruction. The appendix is unremarkable. Peritoneum: No ascites. No free air Vasculature: Extensive abdominal arterial vascular calcifications are noted throughout. Pelvis: Prominent bladder wall thickening may reflect cystitis Skeletal: No acute fracture.. Impression: Prominent bladder wall thickening may reflect cystitis. Nonspecific distention of the gallbladder, this can be further evaluated sonography as indicated Multiple Additional findings as detailed above. PAGE 1 Signed Report (CONTINUED) Name: DAYO GARDINER [facility] : 1965 Age/S: 53 [facility] [facility] [id number] Loc: [place] [address] Phys: Vilma Villarreal MD Acct: [id number] Dis Date: Status: REG ER PHONE #: [phone] Exam Date: 05/09/2019 015 FAX #: [phone] Reason: flank/rlq pain EXAMS: CPT CODE: [id number] CT ABD PELVIS W/CONT 50392 < Continued> at 0233 Reported and signed by: Meagan Larson M.D. CC: Vilma Villarreal MD; Mike Forbes Technologist:ANNA BRAND CTDI: DLP: Trnscb Date/Time: 05/09/2019 (232) t.[email or web address] Orig Print D/T: S: 05/09/2019 (023) PAGE 2 Signed Report BASIC METABOLIC [id number] 00:01:00* Test Item Value Reference Range Interpretation Comments SODIUM (test code = NA) 136 mmol/L 136-145 N POTASSIUM (test code = K) 3.8 mmol/L 3.5-5.1 N CHLORIDE (test code = CL) 95.0 mmol/L 98-107 L CARBON DIOXIDE (test code = CO2) 33.0 mmol/L 21-32 H ANION GAP (test code = GAP) 11.8 10-20 N GLUCOSE (test code = GLU) 371 mg/dL 74-106 H BLOOD UREA NITROGEN (test code = BUN) 22 mg/dL 7-18 H GLOMERULAR FILTRATION RATE (test code = GFR) 10 mL/min >=60 Estimated GFR by using Modified MDRD formula.Chronic kidney disease is defined as either kidney damageor GFR <60 mL/min/1.73 m2 for >3 months. CREATININE (test code = CREAT) 4.70 mg/dL 0.55-1.02 H Note change in reference range due to change in reagent. BUN/CREATININE RATIO (test code = BUN/CREA) 4.7 10-20 L CALCIUM (test code = CA) 8.4 mg/dL 8.5-10.1 L HEPATIC FUNCTION [id number] 00:01:00* Test Item Value Reference Range Interpretation Comments TOTAL PROTEIN (test code = PROT) 7.1 gram/dL 6.4-8.2 N ALBUMIN (test code = ALB) 3.2 g/dL 3.4-5.0 L GLOBULIN (test code = GLOB) 3.9 gram/dL 2.7-4.2 N ALBUMIN/GLOBULIN RATIO (test code = A/G) 0.8 0.75-1.50 N BILIRUBIN TOTAL (test code = BILT) 1.00 mg/dL 0.0-1.0 N BILIRUBIN DIRECT (test code = BILD) 0.19 mg/dL 0.0-0.20 N SGOT/AST (test code = AST) 20 IUnit/L 15-37 N SGPT/ALT (test code = ALT) 25 IUnit/L 12-78 N ALKALINE PHOSPHATASE TOTAL (test code = ALKP) 203 IUnit/L 45-117 H Note change in reference range due to change in reagent. [id number] 00:01:00* Test Item Value Reference Range Interpretation Comments LIPASE (test code = LIP) 62 U/L 73.0-393.0 L HCG SERUM [id number] 00:01:00* Test Item Value Reference Range Interpretation Comments HCG SERUM QUAL (test code = HCGQL) NEGATIVE NEGATIVE This HCGQL test is NOT applicable for MALE patients.Check with nurse about probable order error.If Tumor Marker Test needed, nurse should order test "HCGTU"(Test #550.90484) [id number] 00:01:00* Test Item Value Reference Range Interpretation Comments TROPONIN-I (test code = TROPI) <0.015 ng/mL 0-0.045 N BASIC METABOLIC [id number] 23:25:00* Test Item Value Reference Range Interpretation Comments SODIUM (test code = NA) mmol/L 136-145 POTASSIUM (test code = K) mmol/L 3.5-5.1 CHLORIDE (test code = CL) mmol/L 98-107 CARBON DIOXIDE (test code = CO2) mmol/L 21-32 ANION GAP (test code = GAP) 10-20 GLUCOSE (test code = GLU) mg/dL 74-106 BLOOD UREA NITROGEN (test code = BUN) mg/dL 7-18 GLOMERULAR FILTRATION RATE (test code = GFR) mL/min >=60 CREATININE (test code = CREAT) mg/dL 0.55-1.02 BUN/CREATININE RATIO (test code = BUN/CREA) 10-20 CALCIUM (test code = CA) mg/dL 8.5-10.1 HEPATIC FUNCTION [id number] 23:25:00* Test Item Value Reference Range Interpretation Comments TOTAL PROTEIN (test code = PROT) gram/dL 6.4-8.2 ALBUMIN (test code = ALB) g/dL 3.4-5.0 GLOBULIN (test code = GLOB) gram/dL 2.7-4.2 ALBUMIN/GLOBULIN RATIO (test code = A/G) 0.75-1.50 BILIRUBIN TOTAL (test code = BILT) mg/dL 0.0-1.0 BILIRUBIN DIRECT (test code = BILD) mg/dL 0.0-0.20 SGOT/AST (test code = AST) IUnit/L 15-37 SGPT/ALT (test code = ALT) IUnit/L 12-78 ALKALINE PHOSPHATASE TOTAL (test code = ALKP) IUnit/L 45-117 [id number] 23:25:00* Test Item Value Reference Range Interpretation Comments LIPASE (test code = LIP) U/L 73.0-393.0 HCG SERUM [id number] 23:25:00* Test Item Value Reference Range Interpretation Comments HCG SERUM QUAL (test code = HCGQL) NEGATIVE NEGATIVE This HCGQL test is NOT applicable for MALE patients.Check with nurse about probable order error.If Tumor Marker Test needed, nurse should order test "HCGTU"(Test #550.12463) [id number] 23:25:00* Test Item Value Reference Range Interpretation Comments TROPONIN-I (test code = TROPI) ng/mL 0-0.045 PROTHROMBIN [id number] 22:47:00* Test Item Value Reference Range Interpretation Comments PROTHROMBIN TIME PATIENT (test code = PTP) 11.2 seconds 9.0-14.0 N INTERNATIONAL NORMAL RATIO (test code = INR) 0.9 0.8-1.2 N The therapeutic range for oral anticoagulant therapy formost indications is an international normalized ratio (INR)of between 2.0 and 3.0. The recommended therapeutic INRrange for various clinical situations is listed below: Clinical Situation INR range Pulmonary e mbolism treatment (2.0-3.0)Venous thrombosis treatmentVenous thrombosis prophylaxis (high risk surgery)Prevention of systemic embolism from: Acute myocardial infarction Valvular heart disease Atrial fibrillation Mechanical prosthetic heart valves (2.5-3.5) IS PATIENT ON ANTICOAGULANTS? NTHROMBOPLASTIN TIME [id number] 22:47:00* Test Item Value Reference Range Interpretation Comments THROMBOPLASTIN TIME PARTIAL (test code = PTT) 31.7 seconds 25.0-36. 5 N IS PATIENT ON ANTICOAGULANTS? NCBC W/O [id number] 22:37:00* Test Item Value Reference Range Interpretation Comments WHITE BLOOD CELL (test code = WBC) 6.5 K/mm3 4.5-12.5 N RED BLOOD CELL (test code = RBC) 3.03 mill/mm3 3.7-5.2 L HEMOGLOBIN (test code = HGB) 10.0 gram/dL 11.5-15.5 L HEMATOCRIT (test code = HCT) 31.0 % 36.0-46.0 L MEAN CELL VOLUME (test code = MCV) 102.3 fL 80-98 H MEAN CELL HGB (test code = MCH) 33.0 picogram 27.0-33.0 N MEAN CELL HGB CONCETRATION (test code = MCHC) 32.3 gram/dL 33.0-36. 0 L RED CELL DISTRIBUTION WIDTH (test code = RDW) 13.4 % 11.6-16. 2 N PLATELET COUNT (test code = PLT) 198 K/mm3 150-450 N MEAN PLATELET VOLUME (test code = MPV) 10.2 fL 6.7-11.0 N - XR CHEST 1 [id number] 22:25:00 FAX: Vilma Villarreal MD [phone] [place]: St: REG FAX: Elvis ForbesMike cantrell Linda Bravo [phone] Name: DAYO GARDINER [facility] : 1965 Age/S: 53/F [address] [facility] Unit #: [id number] Loc: [place] [address] Phys: Vilma Villarreal MD Acct: [id number] Dis Date: Status: REG ER PHONE #: [phone] Exam Date: 05/08/20192209 FAX #: [phone] Reason: Abdominal Pain EXAMS: CPT CODE: [id number] XR CHEST 1 V [id number] REASON FOR EXAM: Abdominal Pain Exam Order Date: 05/08/2019 9:42 PM Ordering M.D.: Vilma Villarreal MD PROCEDURE: - XR CHEST 1 V COMPARISON: 2 view chest x-ray April 15, 2019 FINDINGS: Linear opacities in the left lower lung are unchanged from the previous exam and may represent chronic subsegmental atelectasis versus scarring. There is also blunting of the left costophrenic recess, similar to the prior exam, which likely represents additional parenchymal scarring (the costophrenic recesses were sharp on the lateral view of the previous exam. Remainder of the lungs are clear and the right costophrenic recess is sharp. Cardiomediastinal silhouette is normal in size for technique. The mediastinal contours are within normal limits. Musculoskeletal structures are within normal limits. The visualized upper abdomen is within normal limits. IMPRESSION: No acute cardiopulmonary process. Findings are unchanged from the previous study. at 2228 Reported and signed by: Jairon Biswas MD CC: Vilma Villarreal MD; Mike Forbes Technologist: MARCELO MELENDEZ; RT Galo(R Trnscrd Date/Time/By: 05/08/2019 (2181) : By: [email or web address] Orig Print D/T: S: 05/08/2019 (4883) PAGE 1 Signed Report [id number] 20:25:00* Test Item Value Reference Range Interpretation Comments GLUBED (test code = GLUBED) 276 mg/dL 74-106 H Performed by certified slotter operator at [facility] [id number] 18:02:00* Test Item Value Reference Range Interpretation Comments GLUBED (test code = GLUBED) 242 mg/dL 74-106 H Performed by certified slotter operator at [facility] [id number] 11:59:00* Test Item Value Reference Range Interpretation Comments GLUBED (test code = GLUBED) 254 mg/dL 74-106 H Performed by certified slotter operator at [facility] CBC W/AUTO [id number] 07:45:00* Test Item Value Reference Range Interpretation Comments WHITE BLOOD CELL (test code = WBC) 8.4 K/mm3 4.5-12.5 N RED BLOOD CELL (test code = RBC) 3.23 mill/mm3 3.7-5.2 L HEMOGLOBIN (test code = HGB) 10.4 gram/dL 11.5-15.5 L HEMATOCRIT (test code = HCT) 33.4 % 36.0-46.0 L MEAN CELL VOLUME (test code = MCV) 103.4 fL 80-98 H MEAN CELL HGB (test code = MCH) 32.2 picogram 27.0-33.0 N MEAN CELL HGB CONCETRATION (test code = MCHC) 31.1 gram/dL 33.0-36. 0 L RED CELL DISTRIBUTION WIDTH (test code = RDW) 13.2 % 11.6-16. 2 N RED CELL DISTRIBUTION WIDTH SD (test code = RDW-SD) 48.8 fL 37 .0-51.0 N PLATELET COUNT (test code = PLT) 231 K/mm3 150-450 N MEAN PLATELET VOLUME (test code = MPV) 10.0 fL 6.7-11.0 N NEUTROPHIL % (test code = NT%) 65.8 % 39.0-69.0 N IMMATURE GRANULOCYTE % (test code = IG%) 0.5 % 0.0-5.0 N LYMPHOCYTE % (test code = LY%) 18.8 % 25.0-55.0 L MONOCYTE % (test code = MO%) 7.4 % 0.0-10.0 N EOSINOPHIL % (test code = EO%) 6.9 % 0.0-5.0 H BASOPHIL % (test code = BA%) 0.6 % 0.0-1.0 N NUCLEATED RBC % (test code = NRBC%) 0.0 % 0-0 N NEUTROPHIL # (test code = NT#) 5.51 K/mm3 1.8-7.7 N IMMATURE GRANULOCYTE # (test code = IG#) 0.04 x10 3/uL 0-0.03 H LYMPHOCYTE # (test code = LY#) 1.57 K/mm3 1.0-5.0 N MONOCYTE # (test code = MO#) 0.62 K/mm3 0-0.8 N EOSINOPHIL # (test code = EO#) 0.58 K/mm3 0.0-0.5 H BASOPHIL # (test code = BA#) 0.05 K/mm3 0.0-0.2 N NUCLEATED RBC # (test code = NRBC#) 0.00 K/mm3 0.0-0.1 N MANUAL DIFF REQUIRED (test code = MDIFF) NO BASIC METABOLIC [id number] 07:44:00* Test Item Value Reference Range Interpretation Comments SODIUM (test code = NA) 137 mmol/L 136-145 N POTASSIUM (test code = K) 4.9 mmol/L 3.5-5.1 N CHLORIDE (test code = CL) 99.0 mmol/L 98-107 N CARBON DIOXIDE (test code = CO2) 30.0 mmol/L 21-32 N ANION GAP (test code = GAP) 12.9 10-20 N GLUCOSE (test code = GLU) 195 mg/dL 74-106 H BLOOD UREA NITROGEN (test code = BUN) 39 mg/dL 7-18 H RESULT VERIFIED BY REPEAT ANALYSIS GLOMERULAR FILTRATION RATE (test code = GFR) 6 mL/min >=60 Estimated GFR by using Modified MDRD formula.Chronic kidney disease is defined as either kidney damageor GFR <60 mL/min/1.73 m2 for >3 months. CREATININE (test code = CREAT) 7.30 mg/dL 0.55-1.02 H Note change in reference range due to change in reagent. BUN/CREATININE RATIO (test code = BUN/CREA) 5.3 10-20 L CALCIUM (test code = CA) 9.0 mg/dL 8.5-10.1 N [id number] 07:44:00* Test Item Value Reference Range Interpretation Comments PHOSPHORUS (test code = PHOS) 6.3 mg/dL 2.5-4.9 H [id number] 07:44:00* Test Item Value Reference Range Interpretation Comments MAGNESIUM (test code = MAG) 2.8 mg/dL 1.8-2.4 H [id number] 07:35:00* Test Item Value Reference Range Interpretation Comments GLUBED (test code = GLUBED) 190 mg/dL 74-106 H Performed by certified slotter operator at [facility] [id number] 20:29:00* Test Item Value Reference Range Interpretation Comments GLUBED (test code = GLUBED) 171 mg/dL 74-106 H Performed by certified slotter operator at [facility] [id number] 16:27:00* Test Item Value Reference Range Interpretation Comments GLUBED (test code = GLUBED) 213 mg/dL 74-106 H Performed by certified slotter operator at [facility] - MRI L-SPINE W/O [id number] 13:20:00 FAX: Jatinder Deras MD [place]: B St: ADM FAX: Hailee Cahse NP [phone] FAX: Mike Orozco [phone] Name: DAYO GARDINER [facility] : 1965 Age/S: 53/F S[facility] Unit #: [id number] Loc: [address] [place] [address] Phys: Hailee Chase NP Acct: [id number] Dis Date: Status: ADM IN ONE #: [phone] Exam Date: 04/20/2019 1052 FAX #: [phone] Reason: BACK PAIN EXAMS: CPT CODE: [id number] MR I L-SPINE W/O CONT 11869 EXAM: MRI of t he lumbar spine without contrast; INFORMATION: Lower back and flan k pain; TECHNIQUE AND FINDINGS: T1 and T2-weighted sequences were obtained through the lumbar spine including a fat-suppressed studies; images were displayed in sagittal and axial orientation. There is good alignment of the lumbar spine. Vertebral bodies and posterior element s are intact; normal bone marrow signal. The discs T11-L4 are of n ormal height and there is no evidence of disc herniations. L 4/5: There is mild disc space narrowing and there is mild posterior latera l disc protrusion bilaterally with minimal right neural foraminal stenosis . L5/S1: There is moderate narrowing of the disc space and there i s disc herniation with a 6 mm disc fragment being extruded posteriorly and resulting in mild canal stenosis; there is also bilateral mild neural foraminal stenosis. Paravertebral soft tissues are unremarkable. IMPRESSION: 1. Moderate degenerative disc disease at L5/S1 with posterior disc herniation and extrusion of a fragment resulting in mild canal stenosis. 2. Mild neural foraminal stenosis at L5/S1 and on the right side of L4/5. at 1320 Reported and signed by: Sarabjit Robles M.D. CC: Jatinder Lees; Hailee Chase NP; Mike Forbes Technologist: Dana Maldonado)(MR) Trnscrd Date/Time/By: 04/20/20 19 (4621) : By: BrandiGRW Orig Print D/T: S: 04/20/2019 (9149) PAGE 1 Signed Report [id number] 11:53:00* Test Item Value Reference Range Interpretation Comments GLUBED (test code = GLUBED) 256 mg/dL 74-106 H Performed by certified slotter operator at [facility] [id number] 08:58:00* Test Item Value Reference Range Interpretation Comments GLUBED (test code = GLUBED) 179 mg/dL 74-106 H Performed by certified slotter operator at [facility] BASIC METABOLIC [id number] 08:06:00* Test Item Value Reference Range Interpretation Comments SODIUM (test code = NA) 138 mmol/L 136-145 N POTASSIUM (test code = K) 4.3 mmol/L 3.5-5.1 N CHLORIDE (test code = CL) 100.0 mmol/L 98-107 N CARBON DIOXIDE (test code = CO2) 30.0 mmol/L 21-32 N ANION GAP (test code = GAP) 12.3 10-20 N GLUCOSE (test code = GLU) 202 mg/dL 74-106 H BLOOD UREA NITROGEN (test code = BUN) 24 mg/dL 7-18 H GLOMERULAR FILTRATION RATE (test code = GFR) 9 mL/min >=60 Estimated GFR by using Modified MDRD formula.Chronic kidney disease is defined as either kidney damageor GFR <60 mL/min/1.73 m2 for >3 months. CREATININE (test code = CREAT) 5.20 mg/dL 0.55-1.02 H Note change in reference range due to change in reagent. BUN/CREATININE RATIO (test code = BUN/CREA) 4.6 10-20 L CALCIUM (test code = CA) 9.1 mg/dL 8.5-10.1 N HARD STICK CS 0347 [place] IS AWARE V.LAB.CS1 [id number] METABOLIC [id number] 08:00:00* Test Item Value Reference Range Interpretation Comments SODIUM (test code = NA) 138 mmol/L 136-145 N POTASSIUM (test code = K) 4.3 mmol/L 3.5-5.1 N CHLORIDE (test code = CL) 100.0 mmol/L 98-107 N CARBON DIOXIDE (test code = CO2) mmol/L 21-32 ANION GAP (test code = GAP) 10-20 GLUCOSE (test code = GLU) mg/dL 74-106 BLOOD UREA NITROGEN (test code = BUN) mg/dL 7-18 GLOMERULAR FILTRATION RATE (test code = GFR) mL/min >=60 CREATININE (test code = CREAT) mg/dL 0.55-1.02 BUN/CREATININE RATIO (test code = BUN/CREA) 10-20 CALCIUM (test code = CA) mg/dL 8.5-10.1 HARD STICK CS 0347 [employer] [place] IS AWARE V.LAB.CS1 04/20/[id number] 20:27:00* Test Item Value Reference Range Interpretation Comments GLUBED (test code = GLUBED) 173 mg/dL 74-106 H Performed by certified slotter operator at [facility] [id number] 16:37:00* Test Item Value Reference Range Interpretation Comments GLUBED (test code = GLUBED) 321 mg/dL 74-106 H Performed by certified slotter operator at [facility] [id number] 07:44:00* Test Item Value Reference Range Interpretation Comments GLUBED (test code = GLUBED) 164 mg/dL 74-106 H Performed by certified slotter operator at [facility] BASIC METABOLIC [id number] 05:33:00* Test Item Value Reference Range Interpretation Comments SODIUM (test code = NA) 135 mmol/L 136-145 L POTASSIUM (test code = K) 4.9 mmol/L 3.5-5.1 N CHLORIDE (test code = CL) 99.0 mmol/L 98-107 N CARBON DIOXIDE (test code = CO2) 28.0 mmol/L 21-32 N ANION GAP (test code = GAP) 12.9 10-20 N GLUCOSE (test code = GLU) 152 mg/dL 74-106 H BLOOD UREA NITROGEN (test code = BUN) 31 mg/dL 7-18 H RESULT VERIFIED BY REPEAT ANALYSIS GLOMERULAR FILTRATION RATE (test code = GFR) 6 mL/min >=60 Estimated GFR by using Modified MDRD formula.Chronic kidney disease is defined as either kidney damageor GFR <60 mL/min/1.73 m2 for >3 months. CREATININE (test code = CREAT) 7.00 mg/dL 0.55-1.02 H Note change in reference range due to change in reagent. BUN/CREATININE RATIO (test code = BUN/CREA) 4.4 10-20 L CALCIUM (test code = CA) 9.0 mg/dL 8.5-10.1 N [id number] 05:33:00* Test Item Value Reference Range Interpretation Comments PHOSPHORUS (test code = PHOS) 6.1 mg/dL 2.5-4.9 H [id number] 05:33:00* Test Item Value Reference Range Interpretation Comments MAGNESIUM (test code = MAG) 2.9 mg/dL 1.8-2.4 H CBC W/O [id number] 05:11:00* Test Item Value Reference Range Interpretation Comments WHITE BLOOD CELL (test code = WBC) 9.1 K/mm3 4.5-12.5 N RED BLOOD CELL (test code = RBC) 3.24 mill/mm3 3.7-5.2 L HEMOGLOBIN (test code = HGB) 10.7 gram/dL 11.5-15.5 L HEMATOCRIT (test code = HCT) 33.5 % 36.0-46.0 L MEAN CELL VOLUME (test code = MCV) 103.4 fL 80-98 H MEAN CELL HGB (test code = MCH) 33.0 picogram 27.0-33.0 N MEAN CELL HGB CONCETRATION (test code = MCHC) 31.9 gram/dL 33.0-36. 0 L RED CELL DISTRIBUTION WIDTH (test code = RDW) 12.9 % 11.6-16. 2 N PLATELET COUNT (test code = PLT) 244 K/mm3 150-450 RESULT VERIFIED BY REPEAT ANALYSIS MEAN PLATELET VOLUME (test code = MPV) 9.7 fL 6.7-11.0 N [id number] 20:07:00* Test Item Value Reference Range Interpretation Comments GLUBED (test code = GLUBED) 125 mg/dL 74-106 H Performed by certified slotter operator at [facility] [id number] 16:13:00* Test Item Value Reference Range Interpretation Comments GLUBED (test code = GLUBED) 221 mg/dL 74-106 H Performed by certified slotter operator at [facility] [id number] 11:26:00* Test Item Value Reference Range Interpretation Comments GLUBED (test code = GLUBED) 148 mg/dL 74-106 H Performed by certified slotter operator at [facility] BASIC METABOLIC [id number] 08:56:00* Test Item Value Reference Range Interpretation Comments SODIUM (test code = NA) 134 mmol/L 136-145 L POTASSIUM (test code = K) 5.0 mmol/L 3.5-5.1 N CHLORIDE (test code = CL) 97.0 mmol/L 98-107 L CARBON DIOXIDE (test code = CO2) 28.0 mmol/L 21-32 N ANION GAP (test code = GAP) 14.0 10-20 N GLUCOSE (test code = GLU) 207 mg/dL 74-106 H BLOOD UREA NITROGEN (test code = BUN) 21 mg/dL 7-18 H GLOMERULAR FILTRATION RATE (test code = GFR) 8 mL/min >=60 Estimated GFR by using Modified MDRD formula.Chronic kidney disease is defined as either kidney damageor GFR <60 mL/min/1.73 m2 for >3 months. CREATININE (test code = CREAT) 5.40 mg/dL 0.55-1.02 H Note change in reference range due to change in reagent. BUN/CREATININE RATIO (test code = BUN/CREA) 3.9 10-20 L CALCIUM (test code = CA) 9.3 mg/dL 8.5-10.1 N [id number] 07:37:00* Test Item Value Reference Range Interpretation Comments GLUBED (test code = GLUBED) 214 mg/dL 74-106 H Performed by certified slotter operator at [facility] [id number] 20:14:00* Test Item Value Reference Range Interpretation Comments GLUBED (test code = GLUBED) 129 mg/dL 74-106 H Performed by certified slotter operator at [facility] [id number] 16:50:00* Test Item Value Reference Range Interpretation Comments GLUBED (test code = GLUBED) 255 mg/dL 74-106 H Performed by certified slotter operator at [facility] [id number] 07:51:00* Test Item Value Reference Range Interpretation Comments GLUBED (test code = GLUBED) 88 mg/dL 74-106 N Performed by certified slotter operator at [facility] [id number] 07:22:00* Test Item Value Reference Range Interpretation Comments GLYCOSYLATED HEMOGLOBIN (HA1C) (test code = GLYHGB) 8.2 % HbA1 4. 8-6.0 H ESTIMATED AVERAGE GLUCOSE (test code = EAG) 189 MG/DL COMPREHENSIVE METABOLIC [id number] 05:57:00* Test Item Value Reference Range Interpretation Comments SODIUM (test code = NA) 135 mmol/L 136-145 L POTASSIUM (test code = K) 4.3 mmol/L 3.5-5.1 N CHLORIDE (test code = CL) 94.0 mmol/L 98-107 L CARBON DIOXIDE (test code = CO2) 30.0 mmol/L 21-32 N ANION GAP (test code = GAP) 15.3 10-20 N GLUCOSE (test code = GLU) 61 mg/dL 74-106 L BLOOD UREA NITROGEN (test code = BUN) 38 mg/dL 7-18 H GLOMERULAR FILTRATION RATE (test code = GFR) 6 mL/min >=60 Estimated GFR by using Modified MDRD formula.Chronic kidney disease is defined as either kidney damageor GFR <60 mL/min/1.73 m2 for >3 months. CREATININE (test code = CREAT) 7.50 mg/dL 0.55-1.02 H Note change in reference range due to change in reagent. BUN/CREATININE RATIO (test code = BUN/CREA) 5.1 10-20 L TOTAL PROTEIN (test code = PROT) 6.9 gram/dL 6.4-8.2 N ALBUMIN (test code = ALB) 3.0 g/dL 3.4-5.0 L GLOBULIN (test code = GLOB) 3.9 gram/dL 2.7-4.2 N ALBUMIN/GLOBULIN RATIO (test code = A/G) 0.8 0.75-1.50 N CALCIUM (test code = CA) 8.7 mg/dL 8.5-10.1 N BILIRUBIN TOTAL (test code = BILT) 0.60 mg/dL 0.0-1.0 N SGOT/AST (test code = AST) 12 IUnit/L 15-37 L SGPT/ALT (test code = ALT) 13 IUnit/L 12-78 N ALKALINE PHOSPHATASE TOTAL (test code = ALKP) 135 IUnit/L 45-117 H Note change in reference range due to change in reagent. LIPID PROFILE (CORONARY RISK)2019-04-17 05:57:00* Test Item Value Reference Range Interpretation Comments TRIGLYCERIDES (test code = TRIG) 114 mg/dL 20-150 N CHOLESTEROL (test code = CHOL) 141 mg/dL 0-200 N CHOLESTEROL/HDL RATIO (test code = CHOLHDL) 3.0 RATIO 0-4.9 N RISK ASSOCIATED WITH CHOL/HDL RATIOS: Risk Male Female1/2 AVERAGE 3.43 3.27AVERAGE 4.97 4.442X AVERAGE 9.55 7.053X AVERAGE 23.39 11.04 REFERENCE VALUE IS RELATED TO RISK LEVELS ASRECOMMENDED BY THE TATY. HEART, LUNG, AND BLOOD INST. HDL CHOLESTEROL (test code = HDL) 47 mg/dL 40-60 N LIPOPROTEIN LDL (test code = LDL) 81 mg/dL 100-129 L Reference Interval: mg/dL mmol/L Optimal <100 <2.6Near/above optimal 100-129 2.6- 3.3Borderline High 130-159 3.4-4.1High 160-189 4.1-4.9Very High >=190 >=4.9========= This LDL result is a direct measurement.========= [id number] 05:57:00* Test Item Value Reference Range Interpretation Comments PHOSPHORUS (test code = PHOS) 8.3 mg/dL 2.5-4.9 H [id number] 05:57:00* Test Item Value Reference Range Interpretation Comments AMYLASE (test code = CASTRO) 24 Unit/L 25-115 L [id number] 05:57:00* Test Item Value Reference Range Interpretation Comments MAGNESIUM (test code = MAG) 2.8 mg/dL 1.8-2.4 H THYROID PROFILE [id number] 05:57:00* Test Item Value Reference Range Interpretation Comments T3 UPTAKE (test code = T3UP) 36.0 % 30.0-40.0 N T4 (THYROXINE) (test code = T4) 9.3 ug/dL 4.5-13.9 N T7 (FREE THYROXINE INDEX) (test code = T7) 3.34 FTI 1.3-5.1 N THYROID STIMULATING HORMONE (test code = TSH) 2.980 uIU/mL 0.36-3.7 4 N TSH REFERENCE RANGES: EUTHYROID: 0.35 - 4.3 mIU/mL HYPO : > 5.5 mIU/mL HYPER : < 0.35 mIU/mL COMPREHENSIVE METABOLIC [id number] 05:37:00* Test Item Value Reference Range Interpretation Comments SODIUM (test code = NA) 135 mmol/L 136-145 L POTASSIUM (test code = K) 4.3 mmol/L 3.5-5.1 N CHLORIDE (test code = CL) 94.0 mmol/L 98-107 L CARBON DIOXIDE (test code = CO2) mmol/L 21-32 ANION GAP (test code = GAP) 10-20 GLUCOSE (test code = GLU) mg/dL 74-106 BLOOD UREA NITROGEN (test code = BUN) mg/dL 7-18 GLOMERULAR FILTRATION RATE (test code = GFR) mL/min >=60 CREATININE (test code = CREAT) mg/dL 0.55-1.02 BUN/CREATININE RATIO (test code = BUN/CREA) 10-20 TOTAL PROTEIN (test code = PROT) gram/dL 6.4-8.2 ALBUMIN (test code = ALB) g/dL 3.4-5.0 GLOBULIN (test code = GLOB) gram/dL 2.7-4.2 ALBUMIN/GLOBULIN RATIO (test code = A/G) 0.75-1.50 CALCIUM (test code = CA) mg/dL 8.5-10.1 BILIRUBIN TOTAL (test code = BILT) mg/dL 0.0-1.0 SGOT/AST (test code = AST) IUnit/L 15-37 SGPT/ALT (test code = ALT) IUnit/L 12-78 ALKALINE PHOSPHATASE TOTAL (test code = ALKP) IUnit/L 45-117 LIPID PROFILE (CORONARY RISK)2019-04-17 05:37:00* Test Item Value Reference Range Interpretation Comments TRIGLYCERIDES (test code = TRIG) mg/dL 20-150 CHOLESTEROL (test code = CHOL) mg/dL 0-200 CHOLESTEROL/HDL RATIO (test code = CHOLHDL) RATIO 0-4.9 HDL CHOLESTEROL (test code = HDL) mg/dL 40-60 LIPOPROTEIN LDL (test code = LDL) mg/dL 100-129 [id number] 05:37:00* Test Item Value Reference Range Interpretation Comments PHOSPHORUS (test code = PHOS) mg/dL 2.5-4.9 [id number] 05:37:00* Test Item Value Reference Range Interpretation Comments AMYLASE (test code = CASTRO) Unit/L 25-115 [id number] 05:37:00* Test Item Value Reference Range Interpretation Comments MAGNESIUM (test code = MAG) mg/dL 1.8-2.4 THYROID PROFILE [id number] 05:37:00* Test Item Value Reference Range Interpretation Comments T3 UPTAKE (test code = T3UP) % 30.0-40.0 T4 (THYROXINE) (test code = T4) ug/dL 4.5-13.9 T7 (FREE THYROXINE INDEX) (test code = T7) FTI 1.3-5.1 THYROID STIMULATING HORMONE (test code = TSH) uIU/mL 0.36-3.7 4 AB HELICOBACTER [id number] 05:19:00* Test Item Value Reference Range Interpretation Comments AB HELICOBACTER IGG (test code = HELIGAB) NEGATIVE NEGATIVE CBC W/O [id number] 05:10:00* Test Item Value Reference Range Interpretation Comments WHITE BLOOD CELL (test code = WBC) 9.3 K/mm3 4.5-12.5 N RED BLOOD CELL (test code = RBC) 3.05 mill/mm3 3.7-5.2 L HEMOGLOBIN (test code = HGB) 10.3 gram/dL 11.5-15.5 L HEMATOCRIT (test code = HCT) 30.4 % 36.0-46.0 L MEAN CELL VOLUME (test code = MCV) 99.7 fL 80-98 H MEAN CELL HGB (test code = MCH) 33.8 picogram 27.0-33.0 H MEAN CELL HGB CONCETRATION (test code = MCHC) 33.9 gram/dL 33.0-36. 0 N RED CELL DISTRIBUTION WIDTH (test code = RDW) 12.9 % 11.6-16. 2 N PLATELET COUNT (test code = PLT) 327 K/mm3 150-450 N MEAN PLATELET VOLUME (test code = MPV) 9.8 fL 6.7-11.0 N [id number] 03:15:00* Test Item Value Reference Range Interpretation Comments TROPONIN-I (test code = TROPI) <0.015 ng/mL 0-0.045 N 04/16/19 1246PATIENT REFUSED RN ARASELI NOTIFIED V.LAB.SHARA [id number] T O CNC APPLICATIONS ENGINEER: COLLECT 3 HOURS AFTER PREVIOUS SAMPLE [id number] 23:37:00* Test Item Value Reference Range Interpretation Comments TROPONIN-I (test code = TROPI) <0.015 ng/mL 0-0.045 N 04/16/19 1245PATIENT REFUSED RN ARIELLE NOTIFIED V.LAB.SHARA [id number] TO CNC APPLICATIONS ENGINEER: COLLECT 3 HOURS AFTER PREVIOUS SAMPLE [id number] 20:39:00* Test Item Value Reference Range Interpretation Comments GLUBED (test code = GLUBED) 223 mg/dL 74-106 H Performed by certified slotter operator at [facility] AG HEPAT B [id number] 17:26:00* Test Item Value Reference Range Interpretation Comments AG HEPAT B SURF (test code = HBSAG) Nonreactive Index Nonreactive [id number] 16:59:00* Test Item Value Reference Range Interpretation Comments GLUBED (test code = GLUBED) 326 mg/dL 74-106 H Performed by certified slotter operator at [facility] [id number] 12:13:00* Test Item Value Reference Range Interpretation Comments GLUBED (test code = GLUBED) 353 mg/dL 74-106 H Performed by certified slotter operator at [facility] [id number] 07:52:00* Test Item Value Reference Range Interpretation Comments GLUBED (test code = GLUBED) 283 mg/dL 74-106 H Performed by certified slotter operator at [facility] - CT ABD PELVIS W/O [id number] 18:07:00 Name: DAYO AGRDINER [facility] : 1965 Age/S: 53 / F [address] Unit #: [id number] Loc: [place] [address] Phys: Mariajose Vazquez MD Acct: [id number] Dis Date: Status: REG ER PHONE #: [phone] Exam Date: 04/15/2019 1736 FAX #: [phone] Reason: R flank pain EXAMS: CPT CODE: [id number] CT ABD PELVIS W/O CONT 57131 HISTORY: Right flank pain. COMPARISON: January 18, 2018. CT of abdomen and pelvis: Stone protocol. Automated exposure control. CT of abdomen: The lung bases are clear. Dependent changes. Noncontrast liver is without discrete mass or lesions. Gallbladder is without radiopaque stones. The liver is not enlarged. The spleen is not enlarged. The stomach is collapsed and limited in evaluation with thickened distal esophagus. Noncontrast pancreas and adrenals are normal. Markedly atrophied kidneys without hydroureteronephrosis with heavy atherosclerotic calcifications of the renal arteries. No pathologic adenopathy. Heavy atherosclerotic calcifications of the rest of the abdominal and pelvic vasculature as well. No bowel obstruction or colitis or diverticulitis or enteritis. Constipation. CT PELVIS: Appendix is poorly visible but does not appear inflamed. Pelvic bowel loops are unremarkable Decompressed urinary bladder with thickened wall is limited in evaluation. Patient is post hysterectomy. No pelvic pathologic adenopathy. No free fluid or free air. Subcutaneous tissues and the musculature are unremarkable. No lytic or blastic lesions are noted within the bony skeleton. DJD. IMPRESSION: No acute intra-abdominal or intrapelvic pathology. Decompressed urinary bladder is nondiagnostic. Correlate with urinal ysis. Severely atrophied kidneys without hydroureteronephrosis or calyc eal stones. PAGE 1 Signed Report (CONTINUED) Name: DAYO GARDINER [facility] : 1965 Age/S: 53 / F [address] Unit #: [id number] Loc: [place] [address] Phys: Mariajose Vazquez MD Acct: [id number] Dis Date: Status: REG ER PHONE #: [phone] Exam Date: 04/15/2019 1737 FAX #: [phone] Reason: R flank pain EXAMS: CPT CODE: [id number] ABD PELVIS W/O CONT [id number] <Continued> at 1807 Reported and signed by: Kristofer Summers M.D. CC: Mariajose Vazquez MD; Mike Forbes echnologist:Tita Matias RT(R),CT; CTDI: DLP: Trnscb Date /Time: 04/15/2019 (180) [email or web address] Orig Print D/T: S: (181) PAGE 2 Signed Report COMPREHENSIVE METABOLIC [id number] 17:34:00* Test Item Value Reference Range Interpretation Comments SODIUM (test code = NA) 139 mmol/L 136-145 N POTASSIUM (test code = K) 3.9 mmol/L 3.5-5.1 N CHLORIDE (test code = CL) 98.0 mmol/L 98-107 N CARBON DIOXIDE (test code = CO2) 35.0 mmol/L 21-32 H ANION GAP (test code = GAP) 9.9 10-20 L GLUCOSE (test code = GLU) 136 mg/dL 74-106 H BLOOD UREA NITROGEN (test code = BUN) 17 mg/dL 7-18 N GLOMERULAR FILTRATION RATE (test code = GFR) 9 mL/min >=60 Estimated GFR by using Modified MDRD formula.Chronic kidney disease is defined as either kidney damageor GFR <60 mL/min/1.73 m2 for >3 months. CREATININE (test code = CREAT) 4.90 mg/dL 0.55-1.02 H Note change in reference range due to change in reagent. BUN/CREATININE RATIO (test code = BUN/CREA) 3.5 10-20 L TOTAL PROTEIN (test code = PROT) 7.5 gram/dL 6.4-8.2 N ALBUMIN (test code = ALB) 3.5 g/dL 3.4-5.0 N GLOBULIN (test code = GLOB) 4.0 gram/dL 2.7-4.2 N ALBUMIN/GLOBULIN RATIO (test code = A/G) 0.9 0.75-1.50 N CALCIUM (test code = CA) 9.0 mg/dL 8.5-10.1 N BILIRUBIN TOTAL (test code = BILT) 0.60 mg/dL 0.0-1.0 N SGOT/AST (test code = AST) 16 IUnit/L 15-37 N SGPT/ALT (test code = ALT) 17 IUnit/L 12-78 N ALKALINE PHOSPHATASE TOTAL (test code = ALKP) 172 IUnit/L 45-117 H Note change in reference range due to change in reagent. [id number] 17:34:00* Test Item Value Reference Range Interpretation Comments LIPASE (test code = LIP) 44 U/L 73.0-393.0 L [id number] 17:34:00* Test Item Value Reference Range Interpretation Comments TROPONIN-I (test code = TROPI) <0.015 ng/mL 0-0.045 N [id number] 17:34:00* Test Item Value Reference Range Interpretation Comments CKMB (test code = CKMBT) 1.5 ng/mL 0-6.0 N COMPREHENSIVE METABOLIC [id number] 17:19:00* Test Item Value Reference Range Interpretation Comments SODIUM (test code = NA) 139 mmol/L 136-145 N POTASSIUM (test code = K) 3.9 mmol/L 3.5-5.1 N CHLORIDE (test code = CL) 98.0 mmol/L 98-107 N CARBON DIOXIDE (test code = CO2) mmol/L 21-32 ANION GAP (test code = GAP) 10-20 GLUCOSE (test code = GLU) mg/dL 74-106 BLOOD UREA NITROGEN (test code = BUN) mg/dL 7-18 GLOMERULAR FILTRATION RATE (test code = GFR) mL/min >=60 CREATININE (test code = CREAT) mg/dL 0.55-1.02 BUN/CREATININE RATIO (test code = BUN/CREA) 10-20 TOTAL PROTEIN (test code = PROT) gram/dL 6.4-8.2 ALBUMIN (test code = ALB) g/dL 3.4-5.0 GLOBULIN (test code = GLOB) gram/dL 2.7-4.2 ALBUMIN/GLOBULIN RATIO (test code = A/G) 0.75-1.50 CALCIUM (test code = CA) mg/dL 8.5-10.1 BILIRUBIN TOTAL (test code = BILT) mg/dL 0.0-1.0 SGOT/AST (test code = AST) IUnit/L 15-37 SGPT/ALT (test code = ALT) IUnit/L 12-78 ALKALINE PHOSPHATASE TOTAL (test code = ALKP) IUnit/L 45-117 [id number] 17:19:00* Test Item Value Reference Range Interpretation Comments LIPASE (test code = LIP) U/L 73.0-393.0 [id number] 17:19:00* Test Item Value Reference Range Interpretation Comments TROPONIN-I (test code = TROPI) ng/mL 0-0.045 URINALYSIS [id number] 17:18:00* Test Item Value Reference Range Interpretation Comments UA COLOR (test code = COLU) Light-Yellow YELLOW UA APPEARANCE (test code = APPU) CLEAR CLEAR UA GLUCOSE DIPSTICK (test code = DGLUU) 300 (2+) mg/dL NEGATIVE A UA BILIRUBIN DIPSTICK (test code = BILU) NEGATIVE mg/dL NEGATIVE UA KETONE DIPSTICK (test code = KETU) NEGATIVE mg/dL NEGATIVE UA SPECIFIC GRAVITY (test code = SGU) 1.013 1.001-1.035 UA BLOOD DIPSTICK (test code = KIMBERLI) 0.03 mg/dL (Trace) mg/dL NEGATI VE A UA PH DIPSTICK (test code = SHERRELL) 7.0 5.0-8.0 UA PROTEIN DIPSTICK (test code = PROU) 300 (3+) mg/dL NEGATIVE A UA UROBILINIOGEN DIPSTICK (test code = URO) Normal mg/dL NEGATIVE UA NITRITE DIPSTICK (test code = JESSY) NEGATIVE NEGATIVE UA LEUKOCYTE ESTERASE W REFLEX (test code = LEUUR) 25 Lilibeth/uL (Trace) Lilibeth/uL NEGATIVE A UA WBC (test code = WBCU) 6-10 per HPF 0-5 A UA RBC (test code = RBCU) 0-2 #/HPF 0-5 UA EPITHELIAL CELLS (test code = EPIU) FEW per HPF FEW UA BACTERIA (test code = BACU) FEW #/HPF NONE A UA TRANSITIONAL CELLS (test code = TRANU) 0-2 per HPF Few Urine Source? Clean CatchURINALYSIS [id number] 17:17:00* Test Item Value Reference Range Interpretation Comments UA COLOR (test code = COLU) Light-Yellow YELLOW UA APPEARANCE (test code = APPU) CLEAR CLEAR UA GLUCOSE DIPSTICK (test code = DGLUU) 300 (2+) mg/dL NEGATIVE A UA BILIRUBIN DIPSTICK (test code = BILU) NEGATIVE mg/dL NEGATIVE UA KETONE DIPSTICK (test code = KETU) NEGATIVE mg/dL NEGATIVE UA SPECIFIC GRAVITY (test code = SGU) 1.013 1.001-1.035 UA BLOOD DIPSTICK (test code = KIMBERLI) 0.03 mg/dL (Trace) mg/dL NEGATI VE A UA PH DIPSTICK (test code = SHERRELL) 7.0 5.0-8.0 UA PROTEIN DIPSTICK (test code = PROU) 300 (3+) mg/dL NEGATIVE A UA UROBILINIOGEN DIPSTICK (test code = URO) Normal mg/dL NEGATIVE UA NITRITE DIPSTICK (test code = JESSY) NEGATIVE NEGATIVE UA LEUKOCYTE ESTERASE W REFLEX (test code = LEUUR) 25 Lilibeth/uL (Trace) Lilibeth/uL NEGATIVE A UA WBC (test code = WBCU) per HPF 0-5 UA RBC (test code = RBCU) per HPF 0-5 UA EPITHELIAL CELLS (test code = EPIU) per HPF Few UA BACTERIA (test code = BACU) per HPF NONE Urine Source? Clean CatchCBC W/AUTO [id number] 17:05:00* Test Item Value Reference Range Interpretation Comments WHITE BLOOD CELL (test code = WBC) 8.2 K/mm3 4.5-12.5 N RED BLOOD CELL (test code = RBC) 3.44 mill/mm3 3.7-5.2 L HEMOGLOBIN (test code = HGB) 11.4 gram/dL 11.5-15.5 L HEMATOCRIT (test code = HCT) 35.2 % 36.0-46.0 L MEAN CELL VOLUME (test code = MCV) 102.3 fL 80-98 H MEAN CELL HGB (test code = MCH) 33.1 picogram 27.0-33.0 H MEAN CELL HGB CONCETRATION (test code = MCHC) 32.4 gram/dL 33.0-36. 0 L RED CELL DISTRIBUTION WIDTH (test code = RDW) 12.8 % 11.6-16. 2 N RED CELL DISTRIBUTION WIDTH SD (test code = RDW-SD) 47.7 fL 37 .0-51.0 N PLATELET COUNT (test code = PLT) 299 K/mm3 150-450 N MEAN PLATELET VOLUME (test code = MPV) 9.5 fL 6.7-11.0 N NEUTROPHIL % (test code = NT%) 73.6 % 39.0-69.0 H IMMATURE GRANULOCYTE % (test code = IG%) 0.4 % 0.0-5.0 N LYMPHOCYTE % (test code = LY%) 12.2 % 25.0-55.0 L MONOCYTE % (test code = MO%) 6.9 % 0.0-10.0 N EOSINOPHIL % (test code = EO%) 6.2 % 0.0-5.0 H BASOPHIL % (test code = BA%) 0.7 % 0.0-1.0 N NUCLEATED RBC % (test code = NRBC%) 0.0 % 0-0 N NEUTROPHIL # (test code = NT#) 6.05 K/mm3 1.8-7.7 N IMMATURE GRANULOCYTE # (test code = IG#) 0.03 x10 3/uL 0-0.03 N LYMPHOCYTE # (test code = LY#) 1.00 K/mm3 1.0-5.0 N MONOCYTE # (test code = MO#) 0.57 K/mm3 0-0.8 N EOSINOPHIL # (test code = EO#) 0.51 K/mm3 0.0-0.5 H BASOPHIL # (test code = BA#) 0.06 K/mm3 0.0-0.2 N NUCLEATED RBC # (test code = NRBC#) 0.00 K/mm3 0.0-0.1 N - XR CHEST 2 [id number] 17:05:00 FAX: Mariajose Goode [phone] [place]: B St: REG FAX: Mike Orozco [phone] Name: DAYO GARDINER [facility] : 1965 Age/S: 53/F [address] Unit #: [id number] Loc: [place], [place] [address] Phys: Mariajose Vazquez MD Acct: [id number] Dis Date: Status: REG ER PHONE #: [phone] Exam Date: 04/15/2019 1650 FAX #: [phone] Reason: flank pain EXAMS: CPT CODE: [id number] XR CHEST 2 V 25552 HISTORY: Flank pain. COMPARISON: January 19, 2018. AP and lateral view of the chest: No acute infiltrates, effusion or congestion. Suboptimal inspiration. Cardiac silhouette is within normal limits. Anterior left chest wall manager bilingual. IMPRESSION: No acute infiltrates, effusion or congestion. at 1706 Reported and signed by: Kristofer Summers M.D. CC: Mariajose Vazquez MD; Mike Forbes Technologist: RT SHELLY(She) Trnscrd Date/Time/By: 04/15/2019 (4210) : By: [email or web address] Orig Print D/T: S: 04/15/2019 (8237) PAGE 1 Signed Report Throat Culture Strep [id number] 08:04:31No Group A Strep at 24 hours. No Group A Strep at [address] Abdomen and Pelvis w/o Contrast 2019-04-07 13:46:40Patient: DAYO GARDINER Date/Time04/07/2019 13:13 CDTReason for Exampain on R side of abd and R flank;Abdominal painReportCT abdomen and pelvis without contrast 04/07/2019 1:41 PMCLINICAL HISTORY: Abdominal painTECHNIQUE: Axial noncontrast CT images through the abdomen and pelvis were obtained. This examination was performed according to our departmental dose optimization program, which includes automated exposure control, adjustment of the mA and/or kV according to patient size, and/or use of iterative reconstruction technique.COMPARISON: None availableLOCATION: [id number]:There is a trace left pleural effusion with adjacent subsegmental atelectasis. There is calcification of the mitral valve annulus. There is calcification along the course of the right coronary artery.The kidneys are atrophic. There is exuberant arteriosclerosis.The liver, gallbladder, biliary tree, spleen, pancreas, adrenal glands, ureters, and urinary bladder are unremarkable. The uterus is absent.There is no evidence for bowel obstruction. There are no evident inflammatory changes in the small bowel or colon or surrounding mesentery. There is no free fluid in the abdomen or pelvis. There is no abdominopelvic lymphadenopathy. There is no intraperitoneal free air.There is transitional lumbosacral anatomy.IMPRESSION:1. Trace left pleural effusion.2. Findings suggesting end-stage renal disease. Final Dictated by: MD Madsen Timothy JDictated DT/TM: 04/07/2019 1:41 pmSigned by: MD Madsen Timothy JSigned (Electronic Signature): 04/07/2019 1:46 pmStreptococcus A Screen Rapid w/ Reflex [id number] 13:21:29* Test Item Value Reference Range Interpretation Comments Strep A Scn (test code = Strep A Scn) Negative Negative Lot # (test code = Lot #) [id number] N Expiration Dt (test code = Expiration Dt) 01/28/2020 N Neg Control (test code = Neg Control) Not Performed Pos Control (test code = Pos Control) Not Performed Internal QC (test code = Internal QC) Acceptable Comprehensive Metabolic [id number] 13:14:34* Test Item Value Reference Range Interpretation Comments Sodium Level (test code = Sodium Level) 142.0 mmol/L 135.0-145.0 Potassium Level (test code = Potassium Level) 4.4 mmol/L 3.5-5.1 Chloride Level (test code = Chloride Level) 95 mmol/L 98-105 L CO2 (test code = CO2) 30 mmol/L 22-29 H Anion Gap (test code = Anion Gap) 17 mmol/L 7-16 H BUN (test code = BUN) 12.90 mg/dL 6.00-20.00 Creatinine Level (test code = Creatinine Level) 2.80 mg/dL 0.50-0 .90 H BUN/Creat Ratio (test code = BUN/Creat Ratio) 5 N Glucose Level (test code = Glucose Level) 183 mg/dL 70-115 H Calcium Level (test code = Calcium Level) 9.1 mg/dL 8.3-10.5 Alk Phos (test code = Alk Phos) 165 U/L 35-104 H Bilirubin Total (test code = Bilirubin Total) 0.7 mg/dL 0.1-0.9 Albumin Level (test code = Albumin Level) 4.2 g/dL 3.5-5.2 Protein Total (test code = Protein Total) 7.4 g/dL 6.4-8.3 ALT (test code = ALT) 14 U/L 1-33 AST (test code = AST) 22 U/L 1-32 N Specim en Hemolyzed. Globulin (test code = Globulin) 3.2 g/dL 2.9-3.1 H A/G Ratio (test code = A/G Ratio) 1.3 ratio N Lipase [id number] 13:14:34* Test Item Value Reference Range Interpretation Comments Lipase Level (test code = Lipase Level) 8 U/L 13-60 L Comprehensive Metabolic [id number] 13:14:34* Test Item Value Reference Range Interpretation Comments Sodium Level (test code = Sodium Level) 142.0 mmol/L 135.0-145.0 Potassium Level (test code = Potassium Level) 4.4 mmol/L 3.5-5.1 Chloride Level (test code = Chloride Level) 95 mmol/L 98-105 L CO2 (test code = CO2) 30 mmol/L 22-29 H Anion Gap (test code = Anion Gap) 17 mmol/L 7-16 H BUN (test code = BUN) 12.90 mg/dL 6.00-20.00 Creatinine Level (test code = Creatinine Level) 2.80 mg/dL 0.50-0 .90 H BUN/Creat Ratio (test code = BUN/Creat Ratio) 5 N Glucose Level (test code = Glucose Level) 183 mg/dL 70-115 H Calcium Level (test code = Calcium Level) 9.1 mg/dL 8.3-10.5 Alk Phos (test code = Alk Phos) 165 U/L 35-104 H Bilirubin Total (test code = Bilirubin Total) 0.7 mg/dL 0.1-0.9 Albumin Level (test code = Albumin Level) 4.2 g/dL 3.5-5.2 Protein Total (test code = Protein Total) 7.4 g/dL 6.4-8.3 ALT (test code = ALT) 14 U/L 1-33 AST (test code = AST) 22 U/L 1-32 N Specim en Hemolyzed. Globulin (test code = Globulin) 3.2 g/dL 2.9-3.1 H A/G Ratio (test code = A/G Ratio) 1.3 ratio N eGFR AA (test code = eGFR AA) 21 mL/min/1.73 m2 N eGFR (estimated Glomerular Filtration Rate) is an estimated value, calculated from the patient's serum creatinine using the MDRD equation. It is NOT the patient's actual GFR. The eGFR provides a more clinically useful measure of kidney disease than serum creatinine alone.This calculation takes sex and race into account, if the information is provided. If the race is not provided, and the patient is -Prydeinig, multiply by 1.212. If sex is not provided, and the patient is female, multiply by 0.742. Results for patients <18 years of age have not been validated by the MDRD study and should be interpreted with caution. eGFR Result Interpretation:eGFR > or = 60 is in the Normal RangeeGFR < 60 may mean kidney diseaseeGFR < 15 may mean kidney failure Ranges recommended by the National Kidney Foundation, http://nkdep.nih.gov Comprehensive Metabolic [id number] 13:14:34* Test Item Value Reference Range Interpretation Comments Sodium Level (test code = Sodium Level) 142.0 mmol/L 135.0-145.0 Potassium Level (test code = Potassium Level) 4.4 mmol/L 3.5-5.1 Chloride Level (test code = Chloride Level) 95 mmol/L 98-105 L CO2 (test code = CO2) 30 mmol/L 22-29 H Anion Gap (test code = Anion Gap) 17 mmol/L 7-16 H BUN (test code = BUN) 12.90 mg/dL 6.00-20.00 Creatinine Level (test code = Creatinine Level) 2.80 mg/dL 0.50-0 .90 H BUN/Creat Ratio (test code = BUN/Creat Ratio) 5 N Glucose Level (test code = Glucose Level) 183 mg/dL 70-115 H Calcium Level (test code = Calcium Level) 9.1 mg/dL 8.3-10.5 Alk Phos (test code = Alk Phos) 165 U/L 35-104 H Bilirubin Total (test code = Bilirubin Total) 0.7 mg/dL 0.1-0.9 Albumin Level (test code = Albumin Level) 4.2 g/dL 3.5-5.2 Protein Total (test code = Protein Total) 7.4 g/dL 6.4-8.3 ALT (test code = ALT) 14 U/L 1-33 AST (test code = AST) 22 U/L 1-32 N Specim en Hemolyzed. Globulin (test code = Globulin) 3.2 g/dL 2.9-3.1 H A/G Ratio (test code = A/G Ratio) 1.3 ratio N eGFR AA (test code = eGFR AA) 21 mL/min/1.73 m2 N eGFR (estimated Glomerular Filtration Rate) is an estimated value, calculated from the patient's serum creatinine using the MDRD equation. It is NOT the patient's actual GFR. The eGFR provides a more clinically useful measure of kidney disease than serum creatinine alone.This calculation takes sex and race into account, if the information is provided. If the race is not provided, and the patient is -Prydeinig, multiply by 1.212. If sex is not provided, and the patient is female, multiply by 0.742. Results for patients <18 years of age have not been validated by the MDRD study and should be interpreted with caution. eGFR Result Interpretation:eGFR > or = 60 is in the Normal RangeeGFR < 60 may mean kidney diseaseeGFR < 15 may mean kidney failure Ranges recommended by the National Kidney Foundation, http://nkdep.nih.gov eGFR Non-AA (test code = eGFR Non-AA) 17.68 mL/min/1.73 m2 N eGFR (estimated Glomerular Filtration Rate) is an estimated value, calculated from the patient's serum creatinine using the MDRD equation. It is NOT the patient's actual GFR. The eGFR provides a more clinically useful measure of kidney disease than serum creatinine alone.This calculation takes sex and race into account, if the information is provided. If the race is not provided, and the patient is -Prydeinig, multiply by 1.212. If sex is not provided, and the patient is female, multiply by 0.742. Results for patients <18 years of age have not been validated by the MDRD study and should be interpreted with caution. eGFR Result Interpretation:eGFR > or = 60 is in the Normal RangeeGFR < 60 may mean kidney diseaseeGFR < 15 may mean kidney failure Ranges recommended by the National Kidney Foundation, http://nkdep.nih.gov Comprehensive Metabolic [id number] 13:14:34* Test Item Value Reference Range Interpretation Comments Sodium Level (test code = Sodium Level) 142.0 mmol/L 135.0-145.0 Potassium Level (test code = Potassium Level) 4.4 mmol/L 3.5-5.1 Chloride Level (test code = Chloride Level) 95 mmol/L 98-105 L CO2 (test code = CO2) 30 mmol/L 22-29 H Anion Gap (test code = Anion Gap) 17 mmol/L 7-16 H BUN (test code = BUN) 12.90 mg/dL 6.00-20.00 Creatinine Level (test code = Creatinine Level) 2.80 mg/dL 0.70-1 .20 H Reference range changed due to change in patient's sex at 13:35:30. Normal Low changed from 0.50 to 0.70. Normal High changed from 0.90 to 1.20. Result flag not changed. BUN/Creat Ratio (test code = BUN/Creat Ratio) 5 N Glucose Level (test code = Glucose Level) 183 mg/dL 70-115 H Calcium Level (test code = Calcium Level) 9.1 mg/dL 8.3-10.5 Alk Phos (test code = Alk Phos) 165 U/L 40-129 H Reference range changed due to change in patient's sex at 13:35:30. Normal Low changed from 35 to 40. Normal High changed from 104 to 129. Result flag not changed. Bilirubin Total (test code = Bilirubin Total) 0.7 mg/dL 0.1-0.9 Albumin Level (test code = Albumin Level) 4.2 g/dL 3.5-5.2 Protein Total (test code = Protein Total) 7.4 g/dL 6.4-8.3 ALT (test code = ALT) 14 U/L 1-41 Refere nce range changed due to change in patient's sex at 13:35:30. Normal High changed from 33 to 41. Result flag not changed. AST (test code = AST) 22 U/L 1-32 N Specim en Hemolyzed. Globulin (test code = Globulin) 3.2 g/dL 2.9-3.1 H A/G Ratio (test code = A/G Ratio) 1.3 ratio N eGFR AA (test code = eGFR AA) 21 mL/min/1.73 m2 N eGFR (estimated Glomerular Filtration Rate) is an estimated value, calculated from the patient's serum creatinine using the MDRD equation. It is NOT the patient's actual GFR. The eGFR provides a more clinically useful measure of kidney disease than serum creatinine alone.This calculation takes sex and race into account, if the information is provided. If the race is not provided, and the patient is -Prydeinig, multiply by 1.212. If sex is not provided, and the patient is female, multiply by 0.742. Results for patients <18 years of age have not been validated by the MDRD study and should be interpreted with caution. eGFR Result Interpretation:eGFR > or = 60 is in the Normal RangeeGFR < 60 may mean kidney diseaseeGFR < 15 may mean kidney failure Ranges recommended by the National Kidney Foundation, http://nkdep.nih.gov eGFR Non-AA (test code = eGFR Non-AA) 17.68 mL/min/1.73 m2 N eGFR (estimated Glomerular Filtration Rate) is an estimated value, calculated from the patient's serum creatinine using the MDRD equation. It is NOT the patient's actual GFR. The eGFR provides a more clinically useful measure of kidney disease than serum creatinine alone.This calculation takes sex and race into account, if the information is provided. If the race is not provided, and the patient is -Prydeinig, multiply by 1.212. If sex is not provided, and the patient is female, multiply by 0.742. Results for patients <18 years of age have not been validated by the MDRD study and should be interpreted with caution. eGFR Result Interpretation:eGFR > or = 60 is in the Normal RangeeGFR < 60 may mean kidney diseaseeGFR < 15 may mean kidney failure Ranges recommended by the National Kidney Foundation, http://nkdep.nih.gov Comprehensive Metabolic [id number] 13:14:34* Test Item Value Reference Range Interpretation Comments Sodium Level (test code = Sodium Level) 142.0 mmol/L 135.0-145.0 Potassium Level (test code = Potassium Level) 4.4 mmol/L 3.5-5.1 Chloride Level (test code = Chloride Level) 95 mmol/L 98-105 L CO2 (test code = CO2) 30 mmol/L 22-29 H Anion Gap (test code = Anion Gap) 17 mmol/L 7-16 H BUN (test code = BUN) 12.90 mg/dL 6.00-20.00 Creatinine Level (test code = Creatinine Level) 2.80 mg/dL 0.50-0 .90 H Reference range changed due to change in patient's sex at 13:35:30. Normal Low changed from 0.50 to 0.70. Normal High changed from 0.90 to 1.20. Result flag not changed. Reference range changed due to change in patient's sex at 18:21:36. Normal Low changed from 0.70 to 0.50. Normal High changed from 1.20 to 0.90. Result flag not changed. BUN/Creat Ratio (test code = BUN/Creat Ratio) 5 N Glucose Level (test code = Glucose Level) 183 mg/dL 70-115 H Calcium Level (test code = Calcium Level) 9.1 mg/dL 8.3-10.5 Alk Phos (test code = Alk Phos) 165 U/L 35-104 H Reference range changed due to change in patient's sex at 13:35:30. Normal Low changed from 35 to 40. Normal High changed from 104 to 129. Result flag not changed. Reference range changed due to change in patient's sex at 18:21:36. Normal Low changed from 40 to 35. Normal High changed from 129 to 104. Result flag not changed. Bilirubin Total (test code = Bilirubin Total) 0.7 mg/dL 0.1-0.9 Albumin Level (test code = Albumin Level) 4.2 g/dL 3.5-5.2 Protein Total (test code = Protein Total) 7.4 g/dL 6.4-8.3 ALT (test code = ALT) 14 U/L 1-33 Refere nce range changed due to change in patient's sex at 13:35:30. Normal High changed from 33 to 41. Result flag not changed. Reference range changed due to change in patient's sex at 18:21:36. Normal High changed from 41 to 33. Result flag not changed. AST (test code = AST) 22 U/L 1-32 N Specim en Hemolyzed. Globulin (test code = Globulin) 3.2 g/dL 2.9-3.1 H A/G Ratio (test code = A/G Ratio) 1.3 ratio N eGFR AA (test code = eGFR AA) 21 mL/min/1.73 m2 N eGFR (estimated Glomerular Filtration Rate) is an estimated value, calculated from the patient's serum creatinine using the MDRD equation. It is NOT the patient's actual GFR. The eGFR provides a more clinically useful measure of kidney disease than serum creatinine alone.This calculation takes sex and race into account, if the information is provided. If the race is not provided, and the patient is -Prydeinig, multiply by 1.212. If sex is not provided, and the patient is female, multiply by 0.742. Results for patients <18 years of age have not been validated by the MDRD study and should be interpreted with caution. eGFR Result Interpretation:eGFR > or = 60 is in the Normal RangeeGFR < 60 may mean kidney diseaseeGFR < 15 may mean kidney failure Ranges recommended by the National Kidney Foundation, http://nkdep.nih.gov eGFR Non-AA (test code = eGFR Non-AA) 17.68 mL/min/1.73 m2 N eGFR (estimated Glomerular Filtration Rate) is an estimated value, calculated from the patient's serum creatinine using the MDRD equation. It is NOT the patient's actual GFR. The eGFR provides a more clinically useful measure of kidney disease than serum creatinine alone.This calculation takes sex and race into account, if the information is provided. If the race is not provided, and the patient is -Prydeinig, multiply by 1.212. If sex is not provided, and the patient is female, multiply by 0.742. Results for patients <18 years of age have not been validated by the MDRD study and should be interpreted with caution. eGFR Result Interpretation:eGFR > or = 60 is in the Normal RangeeGFR < 60 may mean kidney diseaseeGFR < 15 may mean kidney failure Ranges recommended by the National Kidney Foundation, http://nkdep.nih.gov Automated [id number] 12:58:43* Test Item Value Reference Range Interpretation Comments Neutro Auto (test code = Neutro Auto) 80.5 % 36.0-70.0 H Lymph Auto (test code = Lymph Auto) 10.6 % 12.0-44.0 L Wallace Auto (test code = Wallace Auto) 5.8 % 0.0-11.0 Eos, Auto (test code = Eos, Auto) 2.1 % 0.0-7.0 Basophil Auto (test code = Basophil Auto) 0.6 % 0.0-2.0 Neutro Absolute (test code = Neutro Absolute) 7.2 x10 1.6-7.4 Lymph Absolute (test code = Lymph Absolute) .94 x10 .50-4.60 Wallace Absolute (test code = Wallace Absolute) .52 x10 .00-1.20 Eos Absolute (test code = Eos Absolute) 0.19 x10 0.00-0.74 Baso Absolute (test code = Baso Absolute) 0.05 x10 0.00-0.21 IG [id number] 12:58:43* Test Item Value Reference Range Interpretation Comments IG (test code = IG) 0.4 % 0.0-5.0 IG Abs (test code = IG Abs) 0 x10 N Complete Blood Count with [id number] 12:58:42* Test Item Value Reference Range Interpretation Comments WBC (test code = WBC) 8.9 x10 4.4-10.5 RBC (test code = RBC) 3.18 x10 3.75-5.20 L Hgb (test code = Hgb) 10.9 g/dL 12.2-14.8 L MCV (test code = MCV) 103.80 fL 80.00-100.00 H Hct (test code = Hct) 33.0 % 36.5-44.4 L MCHC (test code = MCHC) 33.00 g/dL 32.00-37.50 RDW CV (test code = RDW CV) 12.8 % 11.5-14.5 MCH (test code = MCH) 34.3 pg 27.0-32.5 H Platelets (test code = Platelets) 301.0 x10 140.0-440.0 MPV (test code = MPV) 10.5 fL N Slide Review (test code = Slide Review) Auto Auto Result created by [email or web address]_AUTO nRBC (test code = nRBC) 0 N NRBC Abs (test code = NRBC Abs) 0.00 x10 N IPF (test code = IPF) 0 % N Complete Blood Count with [id number] 12:58:42* Test Item Value Reference Range Interpretation Comments WBC (test code = WBC) 8.9 x10 4.4-10.5 RBC (test code = RBC) 3.18 x10 4.10-5.70 L Refere nce range changed due to change in patient's sex at 13:35:30. Normal Low changed from 3.75 to 4.10. Normal High changed from 5.20 to 5.70. Result flag not changed. Hgb (test code = Hgb) 10.9 g/dL 13.4-17.4 L Refere nce range changed due to change in patient's sex at 13:35:30. Normal Low changed from 12.2 to 13.4. Normal High changed from 14.8 to 17.4. Result flag not changed. Hct (test code = Hct) 33.0 % 38.7-52.0 L Refere nce range changed due to change in patient's sex at 13:35:30. Normal Low changed from 36.5 to 38.7. Normal High changed from 44.4 to 52.0. Result flag not changed. MCV (test code = MCV) 103.80 fL 80.00-100.00 H MCHC (test code = MCHC) 33.00 g/dL 32.00-37.50 MCH (test code = MCH) 34.3 pg 27.0-32.5 H RDW CV (test code = RDW CV) 12.8 % 11.5-14.5 Platelets (test code = Platelets) 301.0 x10 140.0-440.0 MPV (test code = MPV) 10.5 fL N Slide Review (test code = Slide Review) Auto Auto Result created by [email or web address]_REV_AUTO nRBC (test code = nRBC) 0 N NRBC Abs (test code = NRBC Abs) 0.00 x10 N IPF (test code = IPF) 0 % N Complete Blood Count with [id number] 12:58:42* Test Item Value Reference Range Interpretation Comments WBC (test code = WBC) 8.9 x10 4.4-10.5 RBC (test code = RBC) 3.18 x10 3.75-5.20 L Refere nce range changed due to change in patient's sex at 13:35:30. Normal Low changed from 3.75 to 4.10. Normal High changed from 5.20 to 5.70. Result flag not changed. Reference range changed due to change in patient's sex at 18:21:36. Normal Low changed from 4.10 to 3.75. Normal High changed from 5.70 to 5.20. Result flag not changed. Hgb (test code = Hgb) 10.9 g/dL 12.2-14.8 L Refere nce range changed due to change in patient's sex at 13:35:30. Normal Low changed from 12.2 to 13.4. Normal High changed from 14.8 to 17.4. Result flag not changed. Reference range changed due to change in patient's sex at 18:21:36. Normal Low changed from 13.4 to 12.2. Normal High changed from 17.4 to 14.8. Result flag not changed. MCV (test code = MCV) 103.80 fL 80.00-100.00 H Hct (test code = Hct) 33.0 % 36.5-44.4 L Refere nce range changed due to change in patient's sex at 13:35:30. Normal Low changed from 36.5 to 38.7. Normal High changed from 44.4 to 52.0. Result flag not changed. Reference range changed due to change in patient's sex at 18:21:36. Normal Low changed from 38.7 to 36.5. Normal High changed from 52.0 to 44.4. Result flag not changed. MCHC (test code = MCHC) 33.00 g/dL 32.00-37.50 MCH (test code = MCH) 34.3 pg 27.0-32.5 H RDW CV (test code = RDW CV) 12.8 % 11.5-14.5 Platelets (test code = Platelets) 301.0 x10 140.0-440.0 MPV (test code = MPV) 10.5 fL N Slide Review (test code = Slide Review) Auto Auto Result created by GL_SJM_SLIDE_REV_AUTO nRBC (test code = nRBC) 0 N NRBC Abs (test code = NRBC Abs) 0.00 x10 N IPF (test code = IPF) 0 % N US Breast Complete [id number] 10:44:50Patient: DAYO GARDINER Date/Time03/30/2019 09:48 CDTReason for ExamO92.6ReportLocation R 16- BILATERAL DIAGNOSTIC MAMMOGRAM WITH CAD- LEFT BREAST ULTRASOUND COMPLETE- RIGHT BREAST ULTRASOUND COMPLETEHISTORY: 53 year-old female who presents for presents with bilateral nipple discharge, milky. Also bilateral breast pain.COMPARISON: Mammogram dated 06/05/2010.MAMMOGRAM:CC , ML AND MLO views of both breasts obtained and interpreted. Spot compression CC, MLO and ML views of the right breast. Comput er-aided detection is utilized.There are scattered areas of fibroglandular densi ty.Right breast: Oval circumscribed equal density mass around the 7:00 axis scottie ures approximately 2.8 cm. Appear stable compared to the 2010 exam. Diffuse cody gn vascular calcifications.Left breast: No evidence of new dominant mass, asymme try architectural distortion or suspicious microcalcifications is seen. Diffuse benign vascular calcifications.ULTRASOUND:Technique: Complete survey of the left breast with survey of the left axilla obtained. Complete survey of the right br east with survey of the right axilla obtained. Real-time images of breasts perf ormed by the radiologist as well.Right breast: At the 8:00 axis, 3 cm from the n ipple is an oval circumscribed mass measuring approximately 1.8 x 1.7 x 0.6 cm a nd demonstrating posterior acoustic enhancement, appears to correspond to mammog raphic abnormality. Additional simple cyst measuring maximally 4 mm at the 8:00 axis, 5 cm from the nipple. No retroareolar ductal ectasia or mass.Left breast: No evidence of focal mass, cyst or area of disturbed echotexture. No axillary ly mphadenopathy. No retroareolar ductal ectasia or mass.PHYSICAL EXAM:On exam, no definite palpable abnormalities. Small amount of clear discharge bilaterally on stimulation.IMPRESSION:1. Findings favor benign bilateral nipple discharge.2. In cidental note of circumscribed right breast mass, appears to have been present s muna 2009 exam. Favor benign fibroadenoma. As precaution, this would be followed up superiorly on ultrasound for stability.RECOMMENDATIONS: 6 MONTH FOLLOW-UP [facility] BREAST ULTRASOUND AND MAMMOGRAM.Exam Date/Time03/30/2019 09:48 CDTReportBI-RA DS Category 3: Probably benign Final Dictated by: MD Go Eniola FDictated DT/TM: 03/30/2019 9:50 amSigned by: MD Go E niola FSigned (Electronic Signature): 03/30/2019 10:44 amMG Mammo Digital Diagnostic [id number] 10:44:50Patient: DAYO GARDINER Date/Time03/30/2019 08:23 CDTReason for ExamO92.6ReportLocation R 16- BILATERAL DIAGNOSTIC MAMMOGRAM WITH CAD- LEFT BREAST ULTRASOUND COMPLETE- RIGHT BREAST ULTRASOUND COMPLETEHISTORY: 53 year- old female who presents for presents with bilateral nipple discharge, milky. Also bilateral breast pain.COMPARISON: Mammogram dated 06/05/2010.MAMMOGRAM:CC , ML AND MLO views of both breasts obtained and interpreted. Spot compression CC, MLO and ML views of the right breast. Computer-aided detection is utilized.There are scattered areas of fibroglandular density.Right breast: Oval circumscribed equal density mass around the 7:00 axis measures approximately 2.8 cm. Appear stable compared to the 2010 exam. Diffuse benign vascular calcifications.Left breast: No evidence of new dominant mass, asymmetry architectural distortion or suspicious microcalcifications is seen. Diffuse benign vascular calcifications.ULTRASOUND:Technique: Complete survey of the left breast with survey of the left axilla obtained. Complete survey of the right breast with survey of the right axilla obtained. Real-time images of breasts performed by the radiologist as well.Right breast: At the 8:00 axis, 3 cm from the nipple is an oval circumscribed mass measuring approximately 1.8 x 1.7 x 0.6 cm and demonstrating posterior acoustic enhancement, appears to correspond to mammog raphic abnormality. Additional simple cyst measuring maximally 4 mm at the 8:00 axis, 5 cm from the nipple. No retroareolar ductal ectasia or mass.Left breast: No evidence of focal mass, cyst or area of disturbed echotexture. No axillary ly mphadenopathy. No retroareolar ductal ectasia or mass.PHYSICAL EXAM:On exam, no definite palpable abnormalities. Small amount of clear discharge bilaterally on stimulation.IMPRESSION:1. Findings favor benign bilateral nipple discharge.2. In cidental note of circumscribed right breast mass, appears to have been present s muna 2010 exam. Favor benign fibroadenoma. As precaution, this would be followed up superiorly on ultrasound for stability.RECOMMENDATIONS: 6 MONTH FOLLOW-UP [facility] BREAST ULTRASOUND AND MAMMOGRAM.Exam Date/Time03/30/2019 08:23 CDTReportBI-RA DS Category 3: Probably benign Final Dictated by: MD Go Eniola FDictated DT/TM: 03/30/2019 9:50 amSigned by: MD Go E niola FSigned (Electronic Signature): 03/30/2019 10:44 amUS Breast Complete [id number] 10:44:50Patient: DAYO GARDINER Date/Time03/30/2019 09:48 CDTReason for ExamO92.6ReportLocation R 16- BILATERAL DIAGNOSTIC MAMMOGRAM WITH CAD- LEFT BREAST ULTRASOUND COMPLETE- RIGHT BREAST ULTRASOUND COMPLETEHISTORY: 53 year- old female who presents for presents with bilateral nipple discharge, milky. Also bilateral breast pain.COMPARISON: Mammogram dated 06/05/2010.MAMMOGRAM:CC , ML AND MLO views of both breasts obtained and interpreted. Spot compression CC, MLO and ML views of the right breast. Computer-aided detection is utilized.There are scattered areas of fibroglandular density.Right breast: Oval circumscribed equal density mass around the 7:00 axis measures approximately 2.8 cm. Appear stable compared to the 2010 exam. Diffuse benign vascular calcifications.Left breast: No evidence of new dominant mass, asymmetry architectural distortion or suspicious microcalcifications is seen. Diffuse benign vascular calcifications.ULTRASOUND:Technique: Complete survey of the left breast with survey of the left axilla obtained. Complete survey of the right breast with survey of the right axilla obtained. Real-time images of breasts performed by the radiologist as well.Right breast: At the 8:00 axis, 3 cm from the nipple is an oval circumscribed mass measuring approximately 1.8 x 1.7 x 0.6 cm and demonstrating posterior acoustic enhancement, appears to correspond to mammog raphic abnormality. Additional simple cyst measuring maximally 4 mm at the 8:00 axis, 5 cm from the nipple. No retroareolar ductal ectasia or mass.Left breast: No evidence of focal mass, cyst or area of disturbed echotexture. No axillary ly mphadenopathy. No retroareolar ductal ectasia or mass.PHYSICAL EXAM:On exam, no definite palpable abnormalities. Small amount of clear discharge bilaterally on stimulation.IMPRESSION:1. Findings favor benign bilateral nipple discharge.2. In cidental note of circumscribed right breast mass, appears to have been present s muna 2009 exam. Favor benign fibroadenoma. As precaution, this would be followed up superiorly on ultrasound for stability.RECOMMENDATIONS: 6 MONTH FOLLOW-UP [facility] BREAST ULTRASOUND AND MAMMOGRAM.Exam Date/Time03/30/2019 09:48 CDTReportBI- DS Category 3: Probably benign Final Dictated by: MD Abbi, Jacki FDictated DT/TM: 03/30/2019 9:50 amSigned by: MD Abbi, Linda franco FSigned (Electronic Signature): 03/30/2019 10:44 amMG Mammo Digital Diagnostic [id number] 10:44:50Patient: DAYO GARDINER Date/Time03/30/2019 08:23 CDTReason for ExamO92.6ReportLocation R 16- BILATERAL DIAGNOSTIC MAMMOGRAM WITH CAD- LEFT BREAST ULTRASOUND COMPLETE- RIGHT BREAST ULTRASOUND COMPLETEHISTORY: 53 year- old female who presents for presents with bilateral nipple discharge, milky. Also bilateral breast pain.COMPARISON: Mammogram dated 06/05/2010.MAMMOGRAM:CC , ML AND MLO views of both breasts obtained and interpreted. Spot compression CC, MLO and ML views of the right breast. Computer-aided detection is utilized.There are scattered areas of fibroglandular density.Right breast: Oval circumscribed equal density mass around the 7:00 axis measures approximately 2.8 cm. Appear stable compared to the 2010 exam. Diffuse benign vascular calcifications.Left breast: No evidence of new dominant mass, asymmetry architectural distortion or suspicious microcalcifications is seen. Diffuse benign vascular calcifications.ULTRASOUND:Technique: Complete survey of the left breast with survey of the left axilla obtained. Complete survey of the right breast with survey of the right axilla obtained. Real-time images of breasts performed by the radiologist as well.Right breast: At the 8:00 axis, 3 cm from the nipple is an oval circumscribed mass measuring approximately 1.8 x 1.7 x 0.6 cm and demonstrating posterior acoustic enhancement, appears to correspond to mammog raphic abnormality. Additional simple cyst measuring maximally 4 mm at the 8:00 axis, 5 cm from the nipple. No retroareolar ductal ectasia or mass.Left breast: No evidence of focal mass, cyst or area of disturbed echotexture. No axillary ly mphadenopathy. No retroareolar ductal ectasia or mass.PHYSICAL EXAM:On exam, no definite palpable abnormalities. Small amount of clear discharge bilaterally on stimulation.IMPRESSION:1. Findings favor benign bilateral nipple discharge.2. In cidental note of circumscribed right breast mass, appears to have been present s muna 2010 exam. Favor benign fibroadenoma. As precaution, this would be followed up superiorly on ultrasound for stability.RECOMMENDATIONS: 6 MONTH FOLLOW-UP [facility] BREAST ULTRASOUND AND MAMMOGRAM.Exam Date/Time03/30/2019 08:23 CDTReportBI-RA DS Category 3: Probably benign Final Dictated by: MD Abbi, Jacki FDictated DT/TM: 03/30/2019 9:50 amSigned by: MD Go E niola FSigned (Electronic Signature): 03/30/2019 10:44 amUS Breast Complete [id number] 10:44:50Patient: DAYO GARDINER Date/Time03/30/2019 09:48 CDTReason for ExamO92.6ReportLocation R 16- BILATERAL DIAGNOSTIC MAMMOGRAM WITH CAD- LEFT BREAST ULTRASOUND COMPLETE- RIGHT BREAST ULTRASOUND COMPLETEHISTORY: 53 year- old female who presents for presents with bilateral nipple discharge, milky. Also bilateral breast pain.COMPARISON: Mammogram dated 06/05/2010.MAMMOGRAM:CC , ML AND MLO views of both breasts obtained and interpreted. Spot compression CC, MLO and ML views of the right breast. Computer-aided detection is utilized.There are scattered areas of fibroglandular density.Right breast: Oval circumscribed equal density mass around the 7:00 axis measures approximately 2.8 cm. Appear stable compared to the 2010 exam. Diffuse benign vascular calcifications.Left breast: No evidence of new dominant mass, asymmetry architectural distortion or suspicious microcalcifications is seen. Diffuse benign vascular calcifications.ULTRASOUND:Technique: Complete survey of the left breast with survey of the left axilla obtained. Complete survey of the right breast with survey of the right axilla obtained. Real-time images of breasts performed by the radiologist as well.Right breast: At the 8:00 axis, 3 cm from the nipple is an oval circumscribed mass measuring approximately 1.8 x 1.7 x 0.6 cm and demonstrating posterior acoustic enhancement, appears to correspond to mammog raphic abnormality. Additional simple cyst measuring maximally 4 mm at the 8:00 axis, 5 cm from the nipple. No retroareolar ductal ectasia or mass.Left breast: No evidence of focal mass, cyst or area of disturbed echotexture. No axillary ly mphadenopathy. No retroareolar ductal ectasia or mass.PHYSICAL EXAM:On exam, no definite palpable abnormalities. Small amount of clear discharge bilaterally on stimulation.IMPRESSION:1. Findings favor benign bilateral nipple discharge.2. In cidental note of circumscribed right breast mass, appears to have been present s muna 2010 exam. Favor benign fibroadenoma. As precaution, this would be followed up superiorly on ultrasound for stability.RECOMMENDATIONS: 6 MONTH FOLLOW-UP [facility] BREAST ULTRASOUND AND MAMMOGRAM.Exam Date/Time03/30/2019 09:48 CDTReportBI-RA DS Category 3: Probably benign Final Dictated by: MD Abbi, Jacki FDictated DT/TM: 03/30/2019 9:50 amSigned by: MD Go E niola FSigned (Electronic Signature): 03/30/2019 10:44 amUS Breast Complete [id number] 10:44:50Patient: DAYO GARDINER Date/Time03/30/2019 09:48 CDTReason for ExamO92.6ReportLocation R 16- BILATERAL DIAGNOSTIC MAMMOGRAM WITH CAD- LEFT BREAST ULTRASOUND COMPLETE- RIGHT BREAST ULTRASOUND COMPLETEHISTORY: 53 year- old female who presents for presents with bilateral nipple discharge, milky. Also bilateral breast pain.COMPARISON: Mammogram dated 06/05/2010.MAMMOGRAM:CC , ML AND MLO views of both breasts obtained and interpreted. Spot compression CC, MLO and ML views of the right breast. Computer-aided detection is utilized.There are scattered areas of fibroglandular density.Right breast: Oval circumscribed equal density mass around the 7:00 axis measures approximately 2.8 cm. Appear stable compared to the 2010 exam. Diffuse benign vascular calcifications.Left breast: No evidence of new dominant mass, asymmetry architectural distortion or suspicious microcalcifications is seen. Diffuse benign vascular calcifications.ULTRASOUND:Technique: Complete survey of the left breast with survey of the left axilla obtained. Complete survey of the right breast with survey of the right axilla obtained. Real-time images of breasts performed by the radiologist as well.Right breast: At the 8:00 axis, 3 cm from the nipple is an oval circumscribed mass measuring approximately 1.8 x 1.7 x 0.6 cm and demonstrating posterior acoustic enhancement, appears to correspond to mammog raphic abnormality. Additional simple cyst measuring maximally 4 mm at the 8:00 axis, 5 cm from the nipple. No retroareolar ductal ectasia or mass.Left breast: No evidence of focal mass, cyst or area of disturbed echotexture. No axillary ly mphadenopathy. No retroareolar ductal ectasia or mass.PHYSICAL EXAM:On exam, no definite palpable abnormalities. Small amount of clear discharge bilaterally on stimulation.IMPRESSION:1. Findings favor benign bilateral nipple discharge.2. In cidental note of circumscribed right breast mass, appears to have been present s muna 2010 exam. Favor benign fibroadenoma. As precaution, this would be followed up superiorly on ultrasound for stability.RECOMMENDATIONS: 6 MONTH FOLLOW-UP [facility] BREAST ULTRASOUND AND MAMMOGRAM.Exam Date/Time03/30/2019 09:48 CDTReportBI-RA DS Category 3: Probably benign Final Dictated by: MD Abbi, Jacki FDictated DT/TM: 03/30/2019 9:50 amSigned by: MD Go E niola FSigned (Electronic Signature): 03/30/2019 10:44 amUS Breast Complete [id number] 10:44:50Patient: DAYO GARDINER Date/Time03/30/2019 09:48 CDTReason for ExamO92.6ReportLocation R 16- BILATERAL DIAGNOSTIC MAMMOGRAM WITH CAD- LEFT BREAST ULTRASOUND COMPLETE- RIGHT BREAST ULTRASOUND COMPLETEHISTORY: 53 year- old female who presents for presents with bilateral nipple discharge, milky. Also bilateral breast pain.COMPARISON: Mammogram dated 06/05/2010.MAMMOGRAM:CC , ML AND MLO views of both breasts obtained and interpreted. Spot compression CC, MLO and ML views of the right breast. Computer-aided detection is utilized.There are scattered areas of fibroglandular density.Right breast: Oval circumscribed equal density mass around the 7:00 axis measures approximately 2.8 cm. Appear stable compared to the 2010 exam. Diffuse benign vascular calcifications.Left breast: No evidence of new dominant mass, asymmetry architectural distortion or suspicious microcalcifications is seen. Diffuse benign vascular calcifications.ULTRASOUND:Technique: Complete survey of the left breast with survey of the left axilla obtained. Complete survey of the right breast with survey of the right axilla obtained. Real-time images of breasts performed by the radiologist as well.Right breast: At the 8:00 axis, 3 cm from the nipple is an oval circumscribed mass measuring approximately 1.8 x 1.7 x 0.6 cm and demonstrating posterior acoustic enhancement, appears to correspond to mammog raphic abnormality. Additional simple cyst measuring maximally 4 mm at the 8:00 axis, 5 cm from the nipple. No retroareolar ductal ectasia or mass.Left breast: No evidence of focal mass, cyst or area of disturbed echotexture. No axillary ly mphadenopathy. No retroareolar ductal ectasia or mass.PHYSICAL EXAM:On exam, no definite palpable abnormalities. Small amount of clear discharge bilaterally on stimulation.IMPRESSION:1. Findings favor benign bilateral nipple discharge.2. In cidental note of circumscribed right breast mass, appears to have been present s muna 2010 exam. Favor benign fibroadenoma. As precaution, this would be followed up superiorly on ultrasound for stability.RECOMMENDATIONS: 6 MONTH FOLLOW-UP [facility] BREAST ULTRASOUND AND MAMMOGRAM.Exam Date/Time03/30/2019 09:48 CDTReportBI-RA DS Category 3: Probably benign Final Dictated by: MD Go Eniola FDictated DT/TM: 03/30/2019 9:50 amSigned by: MD Go E niola FSigned (Electronic Signature): 03/30/2019 10:44 [facility] 2019-[facility] 11:44:00 [place] [id number] Patient Name: DAYO GARDINER MR #: [id number] : 1965 Age/Sex: 53/F Req #: [id number] Adm Physician: Ordered by: TEJAL WALLACE MD Report #: [id number] Location: [facility] Room/Bed: Procedure: 05 HOPD/FOOT 2VIEW RT - HOPD Exam Date: 03/19/19 Exa m Time: 1111 REPORT STATUS: Signed FOOT 2VIEW RT - HOPD - 2 views HISTORY: Pain COMPARISON: None availab le. FINDINGS: Generalized demineralization. No acute displaced fra cture. Osseous alignment is within normal limits. The soft tissues appear unremarkable. Vascular calcification. IMPRESSION: No acute fracture or dislocation of the right foot. Mildly displaced distal fibular fracture. Signed by: Dr. Sherri Weems MD on 03/19/2019 11:46 AM Dictated By: GISELA WEEMS MD 1146 Tra nscribed By: ANDRY on 03/19/19 1146 COPY TO: TEJAL WALLACE MD ANKLE 3 VIEW RT - [id number] 11:42:00 [place] [address] Patient Name: DAYO GARDINER MR #: [id number] : 1965 Age/Sex: 53/F Req #: [id number] Adm Physician: Ordered by: TEJAL WALLACE MD Report #: [id number] Location: [facility] Room/Bed: Procedure: 601- 06 HOPD/ANKLE 3 VIEW RT - HOPD Exam Date: 03/19/19 Linda velasquez Time: 1111 REPORT STATUS: Sheri nuñez ANKLE 3 VIEW RT - HOPD - 3 views HISTORY: Pain COMPARISON: None brett ilable. FINDINGS: See impression. IMPRESSION: Generalized demineralization. Mildly displaced intra-articular fracture of the distal rig ht fibula. Ankle mortise is intact. Vascular calcifications. Signed by: Dr. Sherri Weems MD on 03/19/2019 11:44 AM Dictated By: SHERRI WEEMS MD 1144 Transcribed By: Lauren CHISHOLM on 03/19/19 1144 COPY TO: TEJAL WALLACE MD HEMOGLOBIN [id number] 12:05:00* Test Item Value Reference Range Interpretation Comments HEMOGLOBIN A1C (BEAKER) (test code = 368) 10.5 % 4.3-6.1 H [id number] 11:58:00* Test Item Value Reference Range Interpretation Comments RPR SCREEN (BEAKER) (test code = 420) Nonreactive Nonreactive VARICELLA ZOSTER ANTIBODY, [id number] 11:38:00* Test Item Value Reference Range Interpretation Comments VARICELLA ZOSTER IGG (AL) (BEAKER) (test code = 3197) 4.4 VARICELLA ZOSTER RESULT INTERPRETATIONS: <=0.8 Al Nonreactive: Presumed non-immune to VZV 0.9-1.0 Al Equivocal >=1.1 Al Reactive: Presumed immune to VZVCYTOMEGALOVIRUS ANTIBODY, [id number] 11:30:00* Test Item Value Reference Range Interpretation Comments CYTOMEGALOVIRUS, IGG (BEAKER) (test code = 3429) Positive Negat rebeca, Equivocal A CMV IgG Result Interpretation: </= 0.8 Al Negative 0.9-1.0 Al Equivocal > /=1.1 Al PositiveCYTOMEGALOVIRUS ANTIBODY, [id number] 11:30:00* Test Item Value Reference Range Interpretation Comments CYTOMEGALOVIRUS IGM ANTIBODY (BEAKER) (test code = 3437) Neg ative Negative, Equivocal CMV IgM Result Interpretation: </= 0.8 Al Negative 0.9-1.0 Al Equivocal > /= 1.1 Al PositiveEBV ANTIBODY, [id number] 11:30:00* Test Item Value Reference Range Interpretation Comments YUNIEL ELLISON VIRAL CAPSID ANTIGEN IGG (BEAKER) (test code = 3415) Positive Negative, Equivocal A Yuniel Ellison Viral Capsid Antigen IgG Result Interpretation: </= 0.8 Al Negative 0.9-1.0 Al Equivocal >/= 1.1 Al PositiveEBV ANTIBODY, [id number] 11:30:00* Test Item Value Reference Range Interpretation Comments YUNIEL ELLISON VIRAL CAPSID ANTIGEN IGM (BEAKER) (test code = 3418) Negative Negative, Equivocal Yuniel Ellison Viral Capsid Antigen IgM Result Interpretation: </= 0.8 Al Negative 0.9-1.0 Al Equivocal >/= 1.1 Al PositiveHEPATITIS B SURFACE [id number] 11:07:00* Test Item Value Reference Range Interpretation Comments HEPATITIS B SURFACE ANTIBODY (BEAKER) (test code = 647) < mIU/mL <8.0 HEPATITIS B SURFACE [id number] 11:00:00* Test Item Value Reference Range Interpretation Comments HEPATITIS B SURFACE ANTIGEN (2) (BEAKER) (test code = 2585) Nonreactive Nonreactive HEPATITIS B CORE ANTIBODY, [id number] 11:00:00* Test Item Value Reference Range Interpretation Comments HEPATITIS B CORE IGM ANTIBODY (BEAKER) (test code = 645) Non reactive Nonreactive HEPATITIS C [id number] 11:00:00* Test Item Value Reference Range Interpretation Comments HEPATITIS C ANTIBODY (BEAKER) (test code = 367) Nonreactive Nonrea ctive HIV-1 ANTIGEN WITH HIV-1/2 [id number] 11:00:00* Test Item Value Reference Range Interpretation Comments HIV-1 ANTIGEN WITH HIV 1\\T\\2 ANTIBODY (2) (BEAKER) (te st code = 2586) Nonreactive Nonreactive PTH, [id number] 10:46:00* Test Item Value Reference Range Interpretation Comments PARATHYROID HORMONE INTACT (BEAKER) (test code = 577) 618.4 pg/mL 8.5-72.5 H COMPREHENSIVE METABOLIC [id number] 10:45:00* Test Item Value Reference Range Interpretation Comments TOTAL PROTEIN (BEAKER) (test code = 770) 7.1 gm/dL 6.0-8.3 ALBUMIN (BEAKER) (test code = 1145) 3.8 g/dL 3.5-5.0 ALKALINE PHOSPHATASE (BEAKER) (test code = 346) 169 U/L 40-150 H BILIRUBIN TOTAL (BEAKER) (test code = 377) 0.7 mg/dL 0.2-1.2 SODIUM (BEAKER) (test code = 381) 133 meq/L 136-145 L POTASSIUM (BEAKER) (test code = 379) 3.8 meq/L 3.5-5.1 CHLORIDE (BEAKER) (test code = 382) 91 meq/L 98-107 L CO2 (BEAKER) (test code = 355) 27 meq/L 22-29 BLOOD UREA NITROGEN (BEAKER) (test code = 354) 63 mg/dL 7-21 H CREATININE (BEAKER) (test code = 358) 8.09 mg/dL 0.57-1.25 H GLUCOSE RANDOM (BEAKER) (test code = 652) 545 mg/dL 70-105 HH CALCIUM (BEAKER) (test code = 697) 9.1 mg/dL 8.4-10.2 AST (SGOT) (BEAKER) (test code = 353) 21 U/L 5-34 ALT (SGPT) (BEAKER) (test code = 347) 23 U/L 6-55 EGFR (BEAKER) (test code = 1092) 5 mL/min/1.73 sq m ESTIMATED GFR IS NOT ACCURATE CREATININE CLEARANCE IN PREDICTING GLOMERULAR FILTRATION RATE. ESTIMATED GFR IS NOT APPLICABLE FOR DIALYSIS PATIENTS. URIC [id number] 10:30:00* Test Item Value Reference Range Interpretation Comments URIC ACID (BEAKER) (test code = 773) 5.6 mg/dL 2.6-7.2 [id number] 10:30:00* Test Item Value Reference Range Interpretation Comments PHOSPHORUS (BEAKER) (test code = 604) 7.2 mg/dL 2.3-4.7 H GAMMA GLUTAMYL TRANSFERASE (GGT)2018-11-01 10:30:00* Test Item Value Reference Range Interpretation Comments GAMMA GLUTAMYL TRANSFERASE (BEAKER) (test code = 364) 91 U/L 9-64 H LACTATE DEHYDROGENASE (LDH)2018-11-01 10:30:00* Test Item Value Reference Range Interpretation Comments LACTATE DEHYDROGENASE (BEAKER) (test code = 635) 224 U/L 125-2 20 H CBC W/PLT COUNT & AUTO [id number] 10:16:00* Test Item Value Reference Range Interpretation Comments WHITE BLOOD CELL COUNT (BEAKER) (test code = 775) 8.8 K/ L 3.5- 10.5 RED BLOOD CELL COUNT (BEAKER) (test code = 761) 2.96 M/ L 3.93-5 .22 L HEMOGLOBIN (BEAKER) (test code = 410) 10.0 GM/DL 11.2-15.7 L HEMATOCRIT (BEAKER) (test code = 411) 30.0 % 34.1-44.9 L MEAN CORPUSCULAR VOLUME (BEAKER) (test code = 753) 101.4 fL 79. 4-94.8 H MEAN CORPUSCULAR HEMOGLOBIN (BEAKER) (test code = 751) 33.8 pg 25.6-32.2 H MEAN CORPUSCULAR HEMOGLOBIN CONC (BEAKER) (test code = 752) 33.3 GM/DL 32.2-35.5 RED CELL DISTRIBUTION WIDTH (BEAKER) (test code = 412) 11.8 % 11.7-14.4 PLATELET COUNT (BEAKER) (test code = 756) 202 K/CU MM 150-450 MEAN PLATELET VOLUME (BEAKER) (test code = 754) 10.7 fL 9.4-12 .3 NUCLEATED RED BLOOD CELLS (BEAKER) (test code = 413) 0 /100 WBC 0 -0 NEUTROPHILS RELATIVE PERCENT (BEAKER) (test code = 429) 81 % LYMPHOCYTES RELATIVE PERCENT (BEAKER) (test code = 430) 11 % MONOCYTES RELATIVE PERCENT (BEAKER) (test code = 431) 5 % EOSINOPHILS RELATIVE PERCENT (BEAKER) (test code = 432) 2 % BASOPHILS RELATIVE PERCENT (BEAKER) (test code = 437) 1 % NEUTROPHILS ABSOLUTE COUNT (BEAKER) (test code = 670) 7.11 K/ L 1.56-6.13 H LYMPHOCYTES ABSOLUTE COUNT (BEAKER) (test code = 414) 0.98 K/ L 1.18-3.74 L MONOCYTES ABSOLUTE COUNT (BEAKER) (test code = 415) 0.44 K/ L 0. 24-0.36 H EOSINOPHILS ABSOLUTE COUNT (BEAKER) (test code = 416) 0.18 K/ L 0.04-0.36 BASOPHILS ABSOLUTE COUNT (BEAKER) (test code = 417) 0.05 K/ L 0. 01-0.08 IMMATURE GRANULOCYTES-RELATIVE PERCENT (BEAKER) (test code = 2801) 1 % 0-1 PT/[id number] 10:13:00* Test Item Value Reference Range Interpretation Comments PROTIME (BEAKER) (test code = 759) 12.9 seconds 11.7-14.7 INR (BEAKER) (test code = 370) 1.0 <=5.9 PARTIAL THROMBOPLASTIN TIME (BEAKER) (test code = 760) 30.5 seconds 22.5-36.0 RECOMMENDED COUMADIN/WARFARIN INR THERAPY RANGESSTANDARD DOSE: 2.0 - 3.0 Inclu dashawn: PROPHYLAXIS for venous thrombosis, systemic embolization; TREATMENT for kathryn ous thrombosis and/or pulmonary embolus.HIGH RISK: Target INR is 2.5-3.5 for pat ients with mechanical heart valves.XR Foot 2 Views [id number] 13:02:17 Patient: DAYO GARDINER am Date/Time07/19/2018 12:52 CDTReason for Exampain;Pain (please specify)ReportDi ctation location [id number] foot 3 views, left foot 2 viewsHISTORY: [...] 1 :02 pmXR Foot Complete 3+ Views [id number] 13:02:17Patient: DAYO GARDINER Date/Time07/19/2018 12:52 CDTReason for Exampain;TraumaReportDictation location [id number] foot 3 views, left foot 2 viewsHISTORY: Pain following trauma.COMMENT: The bones appear slightly demineralized. There is no acute fracture or disloca tion. No focal lesion or destructive process seen. Vascular calcifications are n oted. There are small calcaneal spurs..IMPRESSION:No acute findings. Final Dictated by: MD Pereyra Phebe CDictated DT/TM: 07/19/2018 1:01 pmSigned b y: MD Pereyra Phebe CSigned (Electronic Signature): 07/19/2018 1:02 pmSodium [id number] 02:16:00* Test Item Value Reference Range Interpretation Comments Sodium Level (test code = 2951-2) 134 136-145 L [facility] CenterPotassium Ngsoh9480-47-46 02:16:00* Test Item Value Reference Range Interpretation Comments Potassium Level (test code = 2823-3) 4.9 3.5-5.1 [facility] CenterChloride [id number] 02:16:00* Test Item Value Reference Range Interpretation Comments Chloride Level (test code = 2075-0) 90 98-107 L [facility] CenterCarbon Dioxide Cpvyv2035-08-27 02:16:00* Test Item Value Reference Range Interpretation Comments Carbon Dioxide Level (test code = 2028-9) 25 22-29 [facility] CenterAnion [id number] 02:16:00* Test Item Value Reference Range Interpretation Comments Anion Gap (test code = 62540-4) 23.9 8-16 H [facility] CenterBlood Urea Tlumbdqs0908-02-25 02:16:00* Test Item Value Reference Range Interpretation Comments Blood Urea Nitrogen (test code = 3094-0) 55 7-26 H [facility] CenterCreatinine2018-08-17 02:16:00* Test Item Value Reference Range Interpretation Comments Creatinine (test code = 2160-0) 8.57 0.57-1.11 H [facility] CenterBUN/Creatinine [id number] 02:16:00* Test Item Value Reference Range Interpretation Comments BUN/Creatinine Ratio (test code = 3097-3) 6 6-25 [facility] CenterEstimat Glomerular Filtration Rate 2018-06-03 02:16:00* Test Item Value Reference Range Interpretation Comments Estimat Glomerular Filtration Rate (test code = 62913-2) 5 >60 L Ranges were taken from the National Kidney Disease Education Program and the [facility] literature.Reference ranges:60 or greater: Qilguc61-02 ( for 3 consecutive months): Chronic kidney disease 15 or less: Kidney failureHereford Regional Medical CenterGlucose Uefom4008-68-85 02:16:00* Test Item Value Reference Range Interpretation Comments Glucose Level (test code = UXG1403) 393 74-118 H [facility] CenterCalcium Rlbro2775-54-31 02:16:00* Test Item Value Reference Range Interpretation Comments Calcium Level (test code = 39869-5) 9.4 8.4-10.2 [facility] CenterTotal Zhnzdolgg5094-56-20 02:16:00* Test Item Value Reference Range Interpretation Comments Total Bilirubin (test code = 1975-2) 0.5 0.2-1.2 [facility] CenterAspartate Amino Transf (AST/SGOT) 2018-06-03 02:16:00* Test Item Value Reference Range Interpretation Comments Aspartate Amino Transf (AST/SGOT) (test code = Aspartate Amino Transf (AST/SGOT)) 31 5-34 [facility] CenterAlanine Aminotransferase (ALT/SGPT) 2018-06-03 02:16:00* Test Item Value Reference Range Interpretation Comments Alanine Aminotransferase (ALT/SGPT) (test code = 1742-6) 21 0-55 [facility] CenterTotal Bybvirk9818-03-88 02:16:00* Test Item Value Reference Range Interpretation Comments Total Protein (test code = 2885-2) 7.7 6.5-8.1 [facility] CenterAlbumin2018-08-17 02:16:00* Test Item Value Reference Range Interpretation Comments Albumin (test code = 1751-7) 3.5 3.5-5.0 [facility] CenterGlobulin2018-08-17 02:16:00* Test Item Value Reference Range Interpretation Comments Globulin (test code = 86793-0) 4.2 2.3-3.5 H [facility] CenterAlbumin/Globulin Frdgw3241-19-12 02:16:00 * Test Item Value Reference Range Interpretation Comments Albumin/Globulin Ratio (test code = 1759-0) 0.8 0.8-2.0 [facility] CenterAlkaline Fpcrxgfqwcy2216-78-52 02:16:00* Test Item Value Reference Range Interpretation Comments Alkaline Phosphatase (test code = 6768-6) 120 40-150 [facility]odium Tvxrp3152-88-44 02:16:00* Test Item Value Reference Range Interpretation Comments Sodium Level (test code = 2951-2) 134 136-145 L [facility] CenterPotassium Szadm7318-76-15 02:16:00* Test Item Value Reference Range Interpretation Comments Potassium Level (test code = 2823-3) 4.9 3.5-5.1 [facility] CenterChloride Dgghg2685-96-07 02:16:00* Test Item Value Reference Range Interpretation Comments Chloride Level (test code = 2075-0) 90 98-107 L [facility] CenterCarbon Dioxide Prgky6971-40-29 02:16:00* Test Item Value Reference Range Interpretation Comments Carbon Dioxide Level (test code = 2028-9) 25 22-29 [facility] CenterAnion Qmg1918-53-48 02:16:00* Test Item Value Reference Range Interpretation Comments Anion Gap (test code = 47180-3) 23.9 8-16 H [facility] CenterBlood Urea Umxsgwjm1408-72-28 02:16:00* Test Item Value Reference Range Interpretation Comments Blood Urea Nitrogen (test code = 3094-0) 55 7-26 H [facility] CenterCreatinine2018-08-17 02:16:00* Test Item Value Reference Range Interpretation Comments Creatinine (test code = 2160-0) 8.57 0.57-1.11 H [facility] CenterBUN/Creatinine Frdlf8331-34-47 02:16:00* Test Item Value Reference Range Interpretation Comments BUN/Creatinine Ratio (test code = 3097-3) 6 6-25 [facility] CenterEstimat Glomerular Filtration Rate 2018-06-03 02:16:00* Test Item Value Reference Range Interpretation Comments Estimat Glomerular Filtration Rate (test code = 460908788) 5 >60 L Ranges were taken from the National Kidney Disease Education Program and the [facility] literature.Reference ranges:60 or greater: Mvuxxn49-45 ( for 3 consecutive months): Chronic kidney disease 15 or less: Kidney failureHereford Regional Medical CenterGlucose Waoud6116-04-40 02:16:00* Test Item Value Reference Range Interpretation Comments Glucose Level (test code = MDO0455) 393 74-118 H [facility] CenterCalcium Rxzcm0576-02-69 02:16:00* Test Item Value Reference Range Interpretation Comments Calcium Level (test code = 20562-1) 9.4 8.4-10.2 [facility] CenterTotal Gqtuevnyh4839-19-15 02:16:00* Test Item Value Reference Range Interpretation Comments Total Bilirubin (test code = 1975-2) 0.5 0.2-1.2 [facility] CenterAspartate Amino Transf (AST/SGOT) 2018-06-03 02:16:00* Test Item Value Reference Range Interpretation Comments Aspartate Amino Transf (AST/SGOT) (test code = Aspartate Amino Transf (AST/SGOT)) 31 5-34 [facility] CenterAlanine Aminotransferase (ALT/SGPT) 2018-06-03 02:16:00* Test Item Value Reference Range Interpretation Comments Alanine Aminotransferase (ALT/SGPT) (test code = 1742-6) 21 0-55 [facility] CenterTotal Ptzdsow4575-63-33 02:16:00* Test Item Value Reference Range Interpretation Comments Total Protein (test code = 2885-2) 7.7 6.5-8.1 [facility] CenterAlbumin2018-08-17 02:16:00* Test Item Value Reference Range Interpretation Comments Albumin (test code = 1751-7) 3.5 3.5-5.0 [facility] CenterGlobulin2018-08-17 02:16:00* Test Item Value Reference Range Interpretation Comments Globulin (test code = 73872-8) 4.2 2.3-3.5 H [facility] CenterAlbumin/Globulin Crefa4984-57-53 02:16:00 * Test Item Value Reference Range Interpretation Comments Albumin/Globulin Ratio (test code = 1759-0) 0.8 0.8-2.0 [facility] CenterAlkaline Cgtzbzrmunc5476-71-15 02:16:00* Test Item Value Reference Range Interpretation Comments Alkaline Phosphatase (test code = 6768-6) 120 40-150 [facility] CenterWhite Blood Goubw9735-82-10 02:07:00* Test Item Value Reference Range Interpretation Comments White Blood Count (test code = 6690-2) 11.49 4.8-10.8 H [facility] CenterRed Blood Tvuxg1507-74-25 02:07:00* Test Item Value Reference Range Interpretation Comments Red Blood Count (test code = 789-8) 3.47 3.6-5.1 L [facility] CenterHemoglobin2018-08-17 02:07:00* Test Item Value Reference Range Interpretation Comments Hemoglobin (test code = 58131-4) 12.1 12.0-16.0 [facility] CenterHematocrit2018-08-17 02:07:00* Test Item Value Reference Range Interpretation Comments Hematocrit (test code = 4544-3) 35.9 34.2-44.1 [facility] CenterMean Corpuscular Tvonmc7309-01-07 02:07:00* Test Item Value Reference Range Interpretation Comments Mean Corpuscular Volume (test code = 787-2) 103.5 81-99 H [facility] CenterMean Corpuscular Yhyrainzfr3556-10-15 02:07:00* Test Item Value Reference Range Interpretation Comments Mean Corpuscular Hemoglobin (test code = 785-6) 34.9 28-32 H [facility] CenterMean Corpuscular Hemoglobin Concent 2018-06-03 02:07:00* Test Item Value Reference Range Interpretation Comments Mean Corpuscular Hemoglobin Concent (test code = 786-4) 33.7 31-35 [facility] CenterRed Cell Distribution Iguju8197-48-74 02:07:00* Test Item Value Reference Range Interpretation Comments Red Cell Distribution Width (test code = 20102-4) 13.2 11.7 -14.4 [facility] CenterPlatelet Fhlhe8071-54-32 02:07:00* Test Item Value Reference Range Interpretation Comments Platelet Count (test code = 777-3) 222 140-360 [facility] CenterNeutrophils (%) (Auto)2018-06-03 02:07:00 * Test Item Value Reference Range Interpretation Comments Neutrophils (%) (Auto) (test code = 06833-3) 80.8 38.7-80.0 H [facility] CenterLymphocytes (%) (Auto)2018-06-03 02:07:00 * Test Item Value Reference Range Interpretation Comments Lymphocytes (%) (Auto) (test code = 736-9) 12.2 18.0-39.1 L [facility] CenterMonocytes (%) (Auto)2018-06-03 02:07:00* Test Item Value Reference Range Interpretation Comments Monocytes (%) (Auto) (test code = 5905-5) 4.6 4.4-11.3 [facility] CenterEosinophils (%) (Auto)2018-06-03 02:07:00 * Test Item Value Reference Range Interpretation Comments Eosinophils (%) (Auto) (test code = 713-8) 1.8 0.0-6.0 [facility] CenterBasophils (%) (Auto)2018-06-03 02:07:00* Test Item Value Reference Range Interpretation Comments Basophils (%) (Auto) (test code = 706-2) 0.3 0.0-1.0 [facility] CenterIM GRANULOCYTES %2018-06-03 02:07:00* Test Item Value Reference Range Interpretation Comments IM GRANULOCYTES % (test code = IM GRANULOCYTES %) 0.3 0.0- 1.0 [facility] CenterNeutrophils # (Auto)2018-06-03 02:07:00* Test Item Value Reference Range Interpretation Comments Neutrophils # (Auto) (test code = 751-8) 9.3 2.1-6.9 H [facility] CenterLymphocytes # (Auto)2018-06-03 02:07:00* Test Item Value Reference Range Interpretation Comments Lymphocytes # (Auto) (test code = 28071-6) 1.4 1.0-3.2 [facility] CenterMonocytes # (Auto)2018-06-03 02:07:00* Test Item Value Reference Range Interpretation Comments Monocytes # (Auto) (test code = 742-7) 0.5 0.2-0.8 [facility] CenterEosinophils # (Auto)2018-06-03 02:07:00* Test Item Value Reference Range Interpretation Comments Eosinophils # (Auto) (test code = 711-2) 0.2 0.0-0.4 [facility] CenterBasophils # (Auto)2018-06-03 02:07:00* Test Item Value Reference Range Interpretation Comments Basophils # (Auto) (test code = 704-7) 0.0 0.0-0.1 [facility] CenterAbsolute Immature Granulocyte (auto 2018-06-03 02:07:00* Test Item Value Reference Range Interpretation Comments Absolute Immature Granulocyte (auto (chago t code = Absolute Immature Granulocyte (auto) 0.04 0-0.1 [facility] CenterProthrombin Bsbb1067-55-77 02:07:00* Test Item Value Reference Range Interpretation Comments Prothrombin Time (test code = 5902-2) 12.6 11.9-14.5 [facility] CenterProthromb Time International Ratio 2018-06-03 02:07:00* Test Item Value Reference Range Interpretation Comments Prothromb Time International Ratio (test code = 6301-6) 1.02 Oral Anticoagulant Therapy INR Values:1. Low Intensity Therapy 1.5 - 2.02 . Moderate Intensity Therapy 2.0 - 3.03. High Intensity Therapy(1) 2.5 - 3. 54. High Intensity Therapy(2) 3.0 - 4.05. Panic Value INR > 5.0 [facility] CenterActivated Partial Thromboplast Time 2018-06-03 02:07:00* Test Item Value Reference Range Interpretation Comments Activated Partial Thromboplast Time (test code = 11095-1) 27.6 23.8-35.5 [facility] CenterWhite Blood Bwqei7520-58-74 02:07:00* Test Item Value Reference Range Interpretation Comments White Blood Count (test code = 6690-2) 11.49 4.8-10.8 H [facility] CenterRed Blood Ezwje5019-55-84 02:07:00* Test Item Value Reference Range Interpretation Comments Red Blood Count (test code = 789-8) 3.47 3.6-5.1 L [facility] CenterHemoglobin2018-08-17 02:07:00* Test Item Value Reference Range Interpretation Comments Hemoglobin (test code = 02126-5) 12.1 12.0-16.0 [facility] CenterHematocrit2018-08-17 02:07:00* Test Item Value Reference Range Interpretation Comments Hematocrit (test code = 4544-3) 35.9 34.2-44.1 [facility] CenterMean Corpuscular Mgiqha4263-90-48 02:07:00* Test Item Value Reference Range Interpretation Comments Mean Corpuscular Volume (test code = 787-2) 103.5 81-99 H [facility] CenterMean Corpuscular Jlfylntktf9956-34-50 02:07:00* Test Item Value Reference Range Interpretation Comments Mean Corpuscular Hemoglobin (test code = 785-6) 34.9 28-32 H [facility] CenterMean Corpuscular Hemoglobin Concent 2018-06-03 02:07:00* Test Item Value Reference Range Interpretation Comments Mean Corpuscular Hemoglobin Concent (test code = 786-4) 33.7 31-35 [facility] CenterRed Cell Distribution Rhrod6831-85-63 02:07:00* Test Item Value Reference Range Interpretation Comments Red Cell Distribution Width (test code = 83528-4) 13.2 11.7 -14.4 [facility] CenterPlatelet Kmtgv0835-28-12 02:07:00* Test Item Value Reference Range Interpretation Comments Platelet Count (test code = 777-3) 222 140-360 [facility] CenterNeutrophils (%) (Auto)2018-06-03 02:07:00 * Test Item Value Reference Range Interpretation Comments Neutrophils (%) (Auto) (test code = 21564-5) 80.8 38.7-80.0 H [facility] CenterLymphocytes (%) (Auto)2018-06-03 02:07:00 * Test Item Value Reference Range Interpretation Comments Lymphocytes (%) (Auto) (test code = 736-9) 12.2 18.0-39.1 L [facility] CenterMonocytes (%) (Auto)2018-06-03 02:07:00* Test Item Value Reference Range Interpretation Comments Monocytes (%) (Auto) (test code = 5905-5) 4.6 4.4-11.3 [facility] CenterEosinophils (%) (Auto)2018-06-03 02:07:00 * Test Item Value Reference Range Interpretation Comments Eosinophils (%) (Auto) (test code = 713-8) 1.8 0.0-6.0 [facility] CenterBasophils (%) (Auto)2018-06-03 02:07:00* Test Item Value Reference Range Interpretation Comments Basophils (%) (Auto) (test code = 706-2) 0.3 0.0-1.0 [facility] CenterIM GRANULOCYTES %2018-06-03 02:07:00* Test Item Value Reference Range Interpretation Comments IM GRANULOCYTES % (test code = IM GRANULOCYTES %) 0.3 0.0- 1.0 [facility] CenterNeutrophils # (Auto)2018-06-03 02:07:00* Test Item Value Reference Range Interpretation Comments Neutrophils # (Auto) (test code = 751-8) 9.3 2.1-6.9 H [facility] CenterLymphocytes # (Auto)2018-06-03 02:07:00* Test Item Value Reference Range Interpretation Comments Lymphocytes # (Auto) (test code = 01844-1) 1.4 1.0-3.2 [facility] CenterMonocytes # (Auto)2018-06-03 02:07:00* Test Item Value Reference Range Interpretation Comments Monocytes # (Auto) (test code = 742-7) 0.5 0.2-0.8 [facility] CenterEosinophils # (Auto)2018-06-03 02:07:00* Test Item Value Reference Range Interpretation Comments Eosinophils # (Auto) (test code = 711-2) 0.2 0.0-0.4 [facility] CenterBasophils # (Auto)2018-06-03 02:07:00* Test Item Value Reference Range Interpretation Comments Basophils # (Auto) (test code = 704-7) 0.0 0.0-0.1 [facility] CenterAbsolute Immature Granulocyte (auto 2018-06-03 02:07:00* Test Item Value Reference Range Interpretation Comments Absolute Immature Granulocyte (auto (chago t code = Absolute Immature Granulocyte (auto) 0.04 0-0.1 [facility] CenterProthrombin Lrkp2181-06-61 02:07:00* Test Item Value Reference Range Interpretation Comments Prothrombin Time (test code = 5902-2) 12.6 11.9-14.5 [facility] CenterProthromb Time International Ratio 2018-06-03 02:07:00* Test Item Value Reference Range Interpretation Comments Prothromb Time International Ratio (test code = 6301-6) 1.02 Oral Anticoagulant Therapy INR Values:1. Low Intensity Therapy 1.5 - 2.02 . Moderate Intensity Therapy 2.0 - 3.03. High Intensity Therapy(1) 2.5 - 3. 54. High Intensity Therapy(2) 3.0 - 4.05. Panic Value INR > 5.0 [facility] CenterActivated Partial Thromboplast Time 2018-06-03 02:07:00* Test Item Value Reference Range Interpretation Comments Activated Partial Thromboplast Time (test code = 28691-7) 27.6 23.8-35.5 [facility] CenterPO Glucose, Hpozf8333-16-50 14:46:00* Test Item Value Reference Range Interpretation Comments POC Glucose (test code = POCGLUC) 476 mg/dL 70-115 Comprehensive Metabolic Cacda0472-93-39 13:31:00* Test Item Value Reference Range Interpretation Comments Sodium (test code = NA) 128 mmol/L 135-145 L Potassium (test code = K) 4.2 mmol/L 3.5-5.1 N Chloride (test code = CL) 87 mmol/L 98-105 L Carbon Dioxide (test code = CO2) 32 mmol/L 22-29 H Glucose (test code = GLU) 499 mg/dL 70-115 HH Blood Urea Nitrogen (test code = BUN) 25 mg/dL 6-20 H Creatinine (test code = CREAT) 3.6 mg/dL 0.5-0.9 H Calcium (test code = CA) 8.3 mg/dL 8.3-10.5 N Prot Total (test code = TP) 6.5 g/dL 6.4-8.3 N Albumin (test code = ALB) 3.7 g/dL 3.5-5.2 N A/G Ratio (test code = AGRATIO) 1.3 Ratio Globulin (test code = GLOB) 2.8 2.9-3.1 L Bili Total (test code = TBIL) 0.3 mg/dL 0.1-0.9 N Alk Phos (test code = APHOS) 178 U/L 35-104 H AST (test code = AST) 20 U/L 1-32 N ALT (test code = ALT) 17 U/L 1-33 N BUN/Creatinine Ratio (test code = BCRATIO) 6.9 Anion Gap (test code = AGAP) 9 mmol/L 7-16 N Estimated GFR (test code = GFR) 14 mL/min/1.73m2 eGFR (estimated Glomerular Filtration Rate) is an estimated value,calculated from the patient's serum creatinine using the MDRD equation.It is NOT the patient's actual GFR. The eGFR provides a more clinicallyuseful measure of kidney disease than serum creatinine alone.This calculation takes sex and race into account, if the informationis provided. If the race is not provided, and the patient isAfrican-Prydeinig, multiply by 1.212. If sex is not provided, and thepatient is female, multiply by 0.742. Results for patients <18 years ofage have not been validated by the MDRD study and should be interpretedwith caution.eGFR Result Interpretation:eGFR > or = 60 is in the Normal RangeeGFR < 60 may mean kidney diseaseeGFR < 15 may mean kidney failureRanges recommended by the National Kidney Found ation,http://nkdep.nih.gov 29113& PELVIS W/O [id number] 13:00:54DICTATION LOCATION: [id number] INFORMATION:Abd painCOMPARISON: 01/24/16PROCEDURE: CT of the Abdomen and Pelvis was performed without intravenous contrast.Intravenous contrast: None.Sagittal and coronal reformats were performed.One or more of the following dose reduction techniques were used:Automated exposure control, adjustment of the mA and/or kV according topatient size, and/or utilization of iterative reconstruction technique. FINDINGS:LOWER CHEST: Stable left lower lobe scarring.LIVER: Within normal limits.BILE DUCTS: Normal caliber.GALLBLADDER: Within normal limits.SPLEEN: Within normal limits.PANCREAS: Within normal limits.ADRENALS: Within normal limits.KIDNEYS/URETERS: 13 mm right upper pole renal cyst. No nephrolithiasisor hydronephrosis.BLADDER: Within normal limits.REPRODUCTIVE ORGANS: Status post hysterectomySTOMACH: Postsurgical changes.BOWEL: No bowel o bstruction. Appendix is unremarkable.PERITONEUM: No ascites.VESSELS: There is at herosclerotic calcification of the aortoiliac vesselRETROPERITONEUM: No lymphade nopathy. ABDOMINAL WALL: Small fat-containing umbilical hernia.BONES: Within no rmal limits.IMPRESSION: No nephrolithiasis or hydronephrosis. No acute abnormali ty.CBC with [id number] 13:00:00* Test Item Value Reference Range Interpretation Comments WBC (test code = WBC) 9.9 K/cumm 4.4-10.5 N RBC (test code = RBC) 3.38 M/cumm 3.75-5.20 L Hemoglobin (test code = HGB) 11.2 gm/dL 12.2-14.8 L Hematocrit (test code = HCT) 34.0 % 36.5-44.4 L MCV (test code = MCV) 100.7 fL 80-100 H MCH (test code = MCH) 33.1 pg 27.0-32.5 H MCHC (test code = MCHC) 32.9 g/dL 32.0-37.5 N RDW (test code = RDW) 13.8 % 11.5-14.5 N Platelet Count (test code = PLTCT) 240 K/cumm 140-440 N MPV (test code = MPV) 9.7 fL Diff Method (test code = DIFFM) Auto Neutrophil (test code = NEUT) 84.6 % 36-70 H Lymphocyte (test code = LYMPH) 9.1 % 12-44 L Monocyte (test code = MONO) 4.3 % 0-11 N Eosinophil (test code = EOS) 1.6 % 0-7 N Basophil (test code = BASO) 0.3 % 0-2 N Neutro Abs (test code = ANEUT) 8.3 K/cumm 1.6-7.4 H Lymph Abs (test code = ALYMPH) 0.9 K/cumm 0.5-4.6 N Wallace Abs (test code = AMONO) 0.4 K/cumm 0.0-1.2 N Eos Abs (test code = AEOS) 0.16 K/cumm 0.00-0.74 N Baso Abs (test code = ABASO) 0.0 K/cumm 0.00-0.21 N Comprehensive Metabolic [id number] 12:52:00* Test Item Value Reference Range Interpretation Comments Sodium (test code = NA) 137 mmol/L 135-145 N Potassium (test code = K) 4.6 mmol/L 3.5-5.1 N Chloride (test code = CL) 92 mmol/L 98-105 L Carbon Dioxide (test code = CO2) 30 mmol/L 22-29 H Glucose (test code = GLU) 370 mg/dL 70-115 H Blood Urea Nitrogen (test code = BUN) 68 mg/dL 6-20 H Creatinine (test code = CREAT) 7.4 mg/dL 0.5-0.9 H Calcium (test code = CA) 8.6 mg/dL 8.3-10.5 N Prot Total (test code = TP) 6.3 g/dL 6.4-8.3 L Albumin (test code = ALB) 3.5 g/dL 3.5-5.2 N A/G Ratio (test code = AGRATIO) 1.3 Ratio Globulin (test code = GLOB) 2.8 2.9-3.1 L Bili Total (test code = TBIL) 0.4 mg/dL 0.1-0.9 N Alk Phos (test code = APHOS) 132 U/L 35-104 H AST (test code = AST) 17 U/L 1-32 N ALT (test code = ALT) 13 U/L 1-33 N BUN/Creatinine Ratio (test code = BCRATIO) 9.2 Anion Gap (test code = AGAP) 15 mmol/L 7-16 N Estimated GFR (test code = GFR) 6 mL/min/1.73m2 eGFR (estimated Glomerular Filtration Rate) is an estimated value,calculated from the patient's serum creatinine using the MDRD equation.It is NOT the patient's actual GFR. The eGFR provides a more clinicallyuseful measure of kidney disease than serum creatinine alone.This calculation takes sex and race into account, if the informationis provided. If the race is not provided, and the patient isAfrican-Prydeinig, multiply by 1.212. If sex is not provided, and thepatient is female, multiply by 0.742. Results for patients <18 years ofage have not been validated by the MDRD study and should be interpretedwith caution.eGFR Result Interpretation:eGFR > or = 60 is in the Normal RangeeGFR < 60 may mean kidney diseaseeGFR < 15 may mean kidney failureRanges recommended by the National Kidney Found ation,http://nkdep.nih.gov Urinalysis [id number] 12:11:00* Test Item Value Reference Range Interpretation Comments Color (test code = COLOR) Yellow Yellow,Straw,Pl yellow N Clarity (test code = CLAR) Sl Cloudy Clear A Specific [place] (test code = SPGR) 1.015 1.001-1.035 N pH (test code = PH) 7.0 5.0-9.0 N Ketone (test code = KET) Negative mg/dL Negative N Glucose (test code = GLUCUR) 1000 mg/dL Negative A Protein (test code = PROT) 500 mg/dL Negative A Bilirubin (test code = BILI) Negative mg/dL Negative N Occult Blood (test code = UDOB) Trace Negative A Urobilinogen (test code = UROB) 0.2 mg/dL 0.2-1.0 N Nitrite (test code = NIT) Negative Negative N Leuk Esterase (test code = LEUK) Negative Negative N Ictotest (test code = ICTOTEST) Negative Negative,Confirmed Neg ative N Clinitest (test code = CLINITEST) Not Indicated Micros Exam (test code = MEXAM) Indicated Epithelial Cells (test code = EPI) 3-5 /LPF 0-30 A WBC, Urine (test code = UWBC) 5-10 /HPF 0-5 A RBC, Urine (test code = URBC) 0-2 /HPF 0-5 A Amorph Deposit (test code = AMORD) None /HPF Mucous, Urine (test code = UMUC) Few /HPF Bacteria (test code = BACT) Moderate /HPF Yeast (test code = YEAST) None Seen /HPF Trichomonas (test code = TRICH) None Seen /HPF Casts (test code = CASTS) None /HPF Crystals (test code = CHARLENE) None /HPF XR FOOT 3+V, [id number] 11:47:19Left hand, 3 viewsHistory: PainComparison: NoneLocation R 16Findings:Chronic bony abnormality at the fifth proximal phalanx is noted. Noevidence of acute fracture. Hammertoe deformities are noted throughoutthe foot. The joint spaces are maintained. The soft tissues areunremarkable. Vascular calcifications are noted.Impression:Chronic bony abnormality at the fifth proximal phalanx is notedsuggestive of an old prior fracture. No definite evidence of acutefracture. Please clinically correlate.XR CHEST 1 [id number] 11:46:40Chest, one viewLOCATION CODE: R 16HISTORY: DyspneaCOMPARISON: 10/30/2017FINDINGS:The heart size is normal and the lungs are clear. There is no evidenceof pleural effusion, pulmonary edema or patchy lobar consolidation.IMPRESSION: 1. No acute cardiopulmonary diseaseBR[facility] Glucose, Blood 2017-10-30 11:30:00* Test Item Value Reference Range Interpretation Comments POC Glucose (test code = POCGLUC) 329 mg/dL 70-115 H If you consider your patient critically ill, the Larry Accu-Chek InformII metershould not be used for Glucose determinations.Draw a venous Glucose and send to the Main Lab for Analysis. POC Glucose, [id number] 12:10:00* Test Item Value Reference Range Interpretation Comments POC Glucose (test code = POCGLUC) 313 mg/dL 70-115 H Notify RN or MDIf you consider your patient critically ill, the Larry Accu-Chek InformII metershould not be used for Glucose determinations.Draw a venous Glucose and send to the Main Lab for Analysis. POC Glucose, [id number] 12:10:00* Test Item Value Reference Range Interpretation Comments POC Glucose (test code = POCGLUC) 313 mg/dL 70-115 H Repeat TestNotify RN or MDIf you consider your patient critically ill, the Larry Accu-Chek InformII metershould not be used for Glucose determinations.Draw a venous Glucose and send to the Main Lab for Analysis. POC Glucose, [id number] 07:51:00* Test Item Value Reference Range Interpretation Comments POC Glucose (test code = POCGLUC) 101 mg/dL 70-115 N If you consider your patient critically ill, the Larry Accu-Chek InformII metershould not be used for Glucose determinations.Draw a venous Glucose and send to the Main Lab for Analysis. Troponin [id number] 07:28:00* Test Item Value Reference Range Interpretation Comments Troponin T (test code = GILLIAN) 0.062 ng/mL 0.000-0.090 N CBC with [id number] 07:24:00* Test Item Value Reference Range Interpretation Comments WBC (test code = WBC) 9.8 K/cumm 4.4-10.5 N RBC (test code = RBC) 2.68 M/cumm 3.75-5.20 L Hemoglobin (test code = HGB) 9.2 gm/dL 12.2-14.8 L Hematocrit (test code = HCT) 27.7 % 36.5-44.4 L MCV (test code = MCV) 103.6 fL 80-100 H MCH (test code = MCH) 34.5 pg 27.0-32.5 H MCHC (test code = MCHC) 33.3 g/dL 32.0-37.5 N RDW (test code = RDW) 15.1 % 11.5-14.5 H Platelet Count (test code = PLTCT) 264 K/cumm 140-440 N MPV (test code = MPV) 8.2 fL Diff Method (test code = DIFFM) Auto Neutrophil (test code = NEUT) 71.4 % 36-70 H Lymphocyte (test code = LYMPH) 20.2 % 12-44 N Monocyte (test code = MONO) 4.3 % 0-11 N Eosinophil (test code = EOS) 3.6 % 0-7 N Basophil (test code = BASO) 0.5 % 0-2 N Neutro Abs (test code = ANEUT) 7.0 K/cumm 1.6-7.4 N Lymph Abs (test code = ALYMPH) 2.0 K/cumm 0.5-4.6 N Wallace Abs (test code = AMONO) 0.4 K/cumm 0.0-1.2 N Eos Abs (test code = AEOS) 0.36 K/cumm 0.00-0.74 N Baso Abs (test code = ABASO) 0.1 K/cumm 0.00-0.21 N Macrocytosis (test code = MACRO) Slight Basic Metabolic [id number] 07:21:00* Test Item Value Reference Range Interpretation Comments Sodium (test code = NA) 137 mmol/L 135-145 N Potassium (test code = K) 4.0 mmol/L 3.5-5.1 N Chloride (test code = CL) 94 mmol/L 98-105 L Carbon Dioxide (test code = CO2) 25 mmol/L 22-29 N Glucose (test code = GLU) 113 mg/dL 70-115 N Blood Urea Nitrogen (test code = BUN) 65 mg/dL 6-20 H Creatinine (test code = CREAT) 6.5 mg/dL 0.5-0.9 H Calcium (test code = CA) 9.3 mg/dL 8.3-10.5 N BUN/Creatinine Ratio (test code = BCRATIO) 10.0 Anion Gap (test code = AGAP) 18 mmol/L 7-16 H Estimated GFR (test code = GFR) 7 mL/min/1.73m2 eGFR (estimated Glomerular Filtration Rate) is an estimated value,calculated from the patient's serum creatinine using the MDRD equation.It is NOT the patient's actual GFR. The eGFR provides a more clinicallyuseful measure of kidney disease than serum creatinine alone.This calculation takes sex and race into account, if the informationis provided. If the race is not provided, and the patient isAfrican-Prydeinig, multiply by 1.212. If sex is not provided, and thepatient is female, multiply by 0.742. Results for patients <18 years ofage have not been validated by the MDRD study and should be interpretedwith caution.eGFR Result Interpretation:eGFR > or = 60 is in the Normal RangeeGFR < 60 may mean kidney diseaseeGFR < 15 may mean kidney failureRanges recommended by the National Kidney Found ation,http://nkdep.nih.gov CK [id number] 23:10:00* Test Item Value Reference Range Interpretation Comments CK (test code = CK) 53 U/L 26-192 N CK [id number] 23:10:00* Test Item Value Reference Range Interpretation Comments CK (test code = CK) 53 U/L 26-192 N CKMB (test code = CKMB) 2.1 ng/mL 0.0-2.8 N CKMB% (test code = CKMBP) 4.0 % 0.0-3.4 H Troponin [id number] 23:08:00* Test Item Value Reference Range Interpretation Comments Troponin T (test code = GILLIAN) 0.057 ng/mL 0.000-0.090 N POC Glucose, [id number] 20:13:00* Test Item Value Reference Range Interpretation Comments POC Glucose (test code = POCGLUC) 345 mg/dL 70-115 H Notify RN or MDIf you consider your patient critically ill, the Larry Accu-Chek InformII metershould not be used for Glucose determinations.Draw a venous Glucose and send to the Main Lab for Analysis. Comprehensive Metabolic [id number] 09:57:00* Test Item Value Reference Range Interpretation Comments Sodium (test code = NA) 134 mmol/L 135-145 L Potassium (test code = K) 4.2 mmol/L 3.5-5.1 N He molyzed Chloride (test code = CL) 92 mmol/L 98-105 L Carbon Dioxide (test code = CO2) 24 mmol/L 22-29 N Glucose (test code = GLU) 282 mg/dL 70-115 H Blood Urea Nitrogen (test code = BUN) 43 mg/dL 6-20 H Creatinine (test code = CREAT) 4.6 mg/dL 0.5-0.9 H Calcium (test code = CA) 8.4 mg/dL 8.3-10.5 N Prot Total (test code = TP) 6.7 g/dL 6.4-8.3 N Albumin (test code = ALB) 4.0 g/dL 3.5-5.2 N A/G Ratio (test code = AGRATIO) 1.5 Ratio Globulin (test code = GLOB) 2.7 2.9-3.1 L Bili Total (test code = TBIL) 0.3 mg/dL 0.1-0.9 N Alk Phos (test code = APHOS) 162 U/L 35-104 H AST (test code = AST) 37 U/L 1-32 H Hemoly zed ALT (test code = ALT) 21 U/L 1-33 N BUN/Creatinine Ratio (test code = BCRATIO) 9.3 Anion Gap (test code = AGAP) 18 mmol/L 7-16 H Estimated GFR (test code = GFR) 11 mL/min/1.73m2 eGFR (estimated Glomerular Filtration Rate) is an estimated value,calculated from the patient's serum creatinine using the MDRD equation.It is NOT the patient's actual GFR. The eGFR provides a more clinicallyuseful measure of kidney disease than serum creatinine alone.This calculation takes sex and race into account, if the informationis provided. If the race is not provided, and the patient isAfrican-Prydeinig, multiply by 1.212. If sex is not provided, and thepatient is female, multiply by 0.742. Results for patients <18 years ofage have not been validated by the MDRD study and should be interpretedwith caution.eGFR Result Interpretation:eGFR > or = 60 is in the Normal RangeeGFR < 60 may mean kidney diseaseeGFR < 15 may mean kidney failureRanges recommended by the National Kidney Found ation,http://nkdep.nih.gov Api-[id number] 09:54:00* Test Item Value Reference Range Interpretation Comments NT ProBnp (test code = PBNP) 3854 pg/mL 0-124 H CK [id number] 09:54:00* Test Item Value Reference Range Interpretation Comments CK (test code = CK) 74 U/L 26-192 N CK [id number] 09:54:00* Test Item Value Reference Range Interpretation Comments CK (test code = CK) 74 U/L 26-192 N CKMB (test code = CKMB) 2.6 ng/mL 0.0-2.8 N CKMB% (test code = CKMBP) 3.5 % 0.0-3.4 H Troponin [id number] 09:54:00* Test Item Value Reference Range Interpretation Comments Troponin T (test code = GILLIAN) 0.057 ng/mL 0.000-0.090 N CBC with [id number] 09:38:00* Test Item Value Reference Range Interpretation Comments WBC (test code = WBC) 10.4 K/cumm 4.4-10.5 N RBC (test code = RBC) 2.91 M/cumm 3.75-5.20 L Hemoglobin (test code = HGB) 9.8 gm/dL 12.2-14.8 L Hematocrit (test code = HCT) 29.8 % 36.5-44.4 L MCV (test code = MCV) 102.5 fL 80-100 H MCH (test code = MCH) 33.5 pg 27.0-32.5 H MCHC (test code = MCHC) 32.7 g/dL 32.0-37.5 N RDW (test code = RDW) 15.1 % 11.5-14.5 H Platelet Count (test code = PLTCT) 258 K/cumm 140-440 N MPV (test code = MPV) 8.1 fL Diff Method (test code = DIFFM) Auto Neutrophil (test code = NEUT) 83.1 % 36-70 H Lymphocyte (test code = LYMPH) 9.7 % 12-44 L Monocyte (test code = MONO) 4.2 % 0-11 N Eosinophil (test code = EOS) 2.5 % 0-7 N Basophil (test code = BASO) 0.4 % 0-2 N Neutro Abs (test code = ANEUT) 8.7 K/cumm 1.6-7.4 H Lymph Abs (test code = ALYMPH) 1.0 K/cumm 0.5-4.6 N Wallace Abs (test code = AMONO) 0.4 K/cumm 0.0-1.2 N Eos Abs (test code = AEOS) 0.26 K/cumm 0.00-0.74 N Baso Abs (test code = ABASO) 0.1 K/cumm 0.00-0.21 N Macrocytosis (test code = MACRO) Slight
[2020-03-20] MEDS ORDERED: NIFEDIPINE 10 MG CAP PO STA (17:24)
[2020-03-20] MEDS ORDERED: HYDROCODONE/APAP 10MG-325MG TAB PO ONE (17:30)
[2020-03-20 18:00] LABS: BASOPHILS # (AUTO) 0.1 (0.0-0.1); BASOPHILS % 0.8 % (0.0-1.0); EOSINOPHILS # (AUTO) 0.2 (0.0-0.4); EOSINOPHILS % 3.1 % (0.0-6.0); HEMATOCRIT 33.3 % (34.2-44.1); HEMOGLOBIN 10.6 g/dL (12.0-16.0); LYMPHOCYTES # (AUTO) 0.7 (1.0-3.2); LYMPHOCYTES % 10.9 % (18.0-39.1); MEAN CORPUSCULAR HGB CONC 31.8 g/dL (31-35); MEAN CORPUSCULAR VOLUME 100.6 fL (81-99); MONOCYTES # (AUTO) 0.3 (0.2-0.8); MONOCYTES % 5.4 % (4.4-11.3); NEUTROPHILS % 79.2 % (38.7-80.0); PLATELET COUNT 179 x10e3/uL (140-360); RED BLOOD COUNT 3.31 x10e6/uL (3.6-5.1); RED CELL DISTRIBUTION WIDTH 12.5 % (11.7-14.4)
[2020-03-20 18:12] LABS: ALBUMIN 3.3 g/dL (3.5-5.0); ALBUMIN/GLOBULIN RATIO 0.8 (0.8-2.0); ANION GAP 21.8 mmol/L (8-16); CALCIUM 8.9 mg/dL (8.4-10.2); CREATININE, SERUM 5.67 mg/dL (0.57-1.11); POTASSIUM 4.8 mmol/L (3.5-5.1)
--- NOTE | 2020-03-20 18:13 | Diagnostic Imaging Report ---
EXAMINATION: CHEST SINGLE (PORTABLE) INDICATION: Hypertensive crisis. COMPARISON: None. Correlation with CT abdomen pelvis dated 12/11/19. FINDINGS: TUBES and LINES: None. LUNGS and PLEURA: Increased density in the mid to lower left hemithorax suggestive of pleural effusion and associated atelectasis versus consolidation. A left pleural effusion was present on a prior CT examination of November 2019. Mild bilateral pulmonary venous congestion. Mild bilateral perihilar, peribronchial thickening. No pneumothorax. HEART AND MEDIASTINUM: Cardiac size is mildly enlarged. BONES AND SOFT TISSUES: No acute osseous lesion. Soft tissues are unremarkable. UPPER ABDOMEN: No free air under the diaphragm. IMPRESSION: 1. Increased density in the mid to lower left hemithorax suggestive of pleural effusion and associated atelectasis versus consolidation. 2. Mild bilateral pulmonary venous congestion. Signed by: Dr. Darryl Hunter M.D. on 03/20/2020 6:10 PM
--- NOTE | 2020-03-20 18:19 | Diagnostic Imaging Report ---
Examination: CT BRAIN WO CONTRAST History:Headaches; hypertension. Comparison studies:None Technique: Axial images were obtained from the skull base to the vertex. Coronal and sagittal images reconstructed from the axial data. Dose modulation, iterative reconstruction, and/or weight based adjustment of the mA/kV was utilized to reduce the radiation dose to as low as reasonably achievable. Intravenous contrast: None Findings: Scalp: No abnormalities. Bones: No fractures, blastic or lytic lesions. Brain sulci: Appropriate for age. Ventricles: Normal in size and configuration. No hydrocephalus. Extra-axial space: No abnormalities. Parenchyma: No masses, hemorrhage, or acute or chronic cortical based vascular insults.. Sellar/suprasellar region: No abnormalities. Craniocervical junction: Patent foramen magnum. No Chiari one malformation. Incidental findings: None. Impression: No acute intracranial abnormalities. Signed by: Dr. Tianna Joseph M.D. on 03/20/2020 6:16 PM
[2020-03-20 18:21] LABS: CREATINE KINASE MB 2.5 ng/mL (0-5.0)
[2020-03-20] MEDS ORDERED: INSULIN REGULAR, HUMAN 100 UNIT/1 ML 3ML VIAL IV ONE (19:45)
[2020-03-20] MEDS ORDERED: INSULIN REGULAR, HUMAN 100 UNIT/1 ML 3ML VIAL SQ ONE (19:45)
[2020-03-20] MEDS ORDERED: HYDRALAZINE HCL 20 MG/ML VIAL ONE (19:50)
--- NOTE | 2020-03-20 19:56 | Emergency Department Note ---
History of Present Illnes History of Present Illness Chief Complaint: Hypertension History of Present Illness This is a 54 year old female here for high blood pressure sent by Dr. lake from dialysis, pt reports when here dialysis was completed her blood pressure was very high and was sent to er. pt denies any symptoms . Historian: Patient Arrival Mode: Car Onset (how long ago): hour(s) (4) Location: none Quality: elevated blood pressure Radiation: non-radiation Severity: unable to specify (pt has no symptoms) Onset quality: sudden Duration (how long): hour(s) (4) Progression: unchanged Chronicity: recurrent Context: recent illness, recent surgery Relieving factors: none Exacerbating factors: none Associated symptoms: denies other symptoms Past Medical/Family History Physician Review I have reviewed the patient's past medical and family history. Any updates have been documented here. Past Medical History Recent Fever: No Clinical Suspicion of Infectio: No New/Unexplained Change in Ment: No Past Medical History: Hypertension, Diabetes, Asthma, ESRD, Hemodyalisis, Hyperlipedemia Other Medical History: ORTHOSTATIC HTN Past Surgical History: Hysterectomy, Bariatric Surgery Other Surgery: fistula and tummy tuck RECONSTRUCTIVE HAND SURGERY Social History Smoking Cessation: Never Smoker Alcohol Use: None Any Illegal Drug Use: No Other Last Tetanus: UTD Review of Systems Review of Systems Constitutional: no symptoms EENTM: no symptoms Cardiovascular: no symptoms Respiratory: no symptoms Gastrointestinal: no symptoms Genitourinary: no symptoms Musculoskeletal: no symptoms Neurological: no symptoms Psychological: no symptoms Endocrine: no symptoms Hematological/Lymphatic: no symptoms Review of other systems All other systems reviewed and negative. Physical Exam Related Data Allergies: Coded Allergies: Penicillins (Verified Allergy, Severe, ANAPHYLAXIS, 12/11/19) coconut (Verified Allergy, Intermediate, 12/11/19) plum (Verified Allergy, Unknown, 12/11/19) glyburide (Verified Adverse Reaction, Intermediate, PALPATATIONS, 12/11/19) Triage Vital Signs Vital Signs Date Time Temp Pulse Resp B/P (MAP) Pulse Ox O2 Delivery O2 Flow Rate FiO2 03/20/20 17:02 99.1 83 16 229/103 96 Vital signs reviewed: Yes Physical Exam CONSTITUTIONAL Constitutional: well-developed, well-nourished HENT HENT: normocephalic, atraumatic, oropharynx clear/moist, nose normal HENT L/R: left ext ear normal, right ext ear normal EYES Eyes: PERRL, conjunctivae normal NECK Neck: ROM normal PULMONARY Pulmonary: effort normal, breath sounds normal CARDIOVASCULAR Cardiovascular: regular rhythm, heart sounds normal, capillary refill normal, normal rate GASTROINTESTINAL Abdominal: soft, nontender, bowel sounds normal GENITOURINARY Genitourinary: exam deferred SKIN Skin: warm, dry MUSCULOSKELETAL Musculoskeletal: ROM normal, other (av fistula left forearm) NEUROLOGICAL Neurological: alert, oriented x 3, no gross motor or sensory deficits PSYCHOLOGICAL Psychological: mood/affect normal, judgement normal Results Laboratory Result Diagram: 03/20/20 1720 03/20/20 1720 Laboratory Laboratory Tests Test 03/20/20 17:20 White Blood Count 6.35 x10e3/uL (4.8-10.8) Red Blood Count 3.31 x10e6/uL (3.6-5.1) Hemoglobin 10.6 g/dL (12.0-16.0) Hematocrit 33.3 % (34.2-44.1) Mean Corpuscular Volume 100.6 fL (81-99) Mean Corpuscular Hemoglobin 32.0 pg (28-32) Mean Corpuscular Hemoglobin Concent 31.8 g/dL (31-35) Red Cell Distribution Width 12.5 % (11.7-14.4) Platelet Count 179 x10e3/uL (140-360) Neutrophils (%) (Auto) 79.2 % (38.7-80.0) Lymphocytes (%) (Auto) 10.9 % (18.0-39.1) Monocytes (%) (Auto) 5.4 % (4.4-11.3) Eosinophils (%) (Auto) 3.1 % (0.0-6.0) Basophils (%) (Auto) 0.8 % (0.0-1.0) Neutrophils # (Auto) 5.0 (2.1-6.9) Lymphocytes # (Auto) 0.7 (1.0-3.2) Monocytes # (Auto) 0.3 (0.2-0.8) Eosinophils # (Auto) 0.2 (0.0-0.4) Basophils # (Auto) 0.1 (0.0-0.1) Absolute Immature Granulocyte (auto 0.04 x10e3/uL (0-0.1) Sodium Level 133 mmol/L (136-145) Potassium Level 4.8 mmol/L (3.5-5.1) Chloride Level 91 mmol/L (98-107) Carbon Dioxide Level 25 mmol/L (22-29) Anion Gap 21.8 mmol/L (8-16) Blood Urea Nitrogen 35 mg/dL (7-26) Creatinine 5.67 mg/dL (0.57-1.11) Estimat Glomerular Filtration Rate 8 ML/MIN (60-) BUN/Creatinine Ratio 6 (6-25) Glucose Level 702 mg/dL (74-118) Calcium Level 8.9 mg/dL (8.4-10.2) Total Bilirubin 0.5 mg/dL (0.2-1.2) Aspartate Amino Transf (AST/SGOT) 20 IU/L (5-34) Alanine Aminotransferase (ALT/SGPT) 19 IU/L (0-55) Alkaline Phosphatase 292 IU/L (40-150) Creatine Kinase 102 IU/L (29-168) Creatine Kinase MB 2.50 ng/mL (0-5.0) Troponin I 0.067 ng/mL (0-0.300) Total Protein 7.5 g/dL (6.5-8.1) Albumin 3.3 g/dL (3.5-5.0) Globulin 4.2 g/dL (2.3-3.5) Albumin/Globulin Ratio 0.8 (0.8-2.0) Lab results reviewed: Yes Laboratory comments pt with blood sugar of 702 Imaging Imaging results reviewed: Yes Impressions Procedure: [id number] CT/CT BRAIN WO Exam Date: 03/20/20 Exam Time: 1743 REPORT STATUS: Signed Examination: CT BRAIN WO CONTRAST History:Headaches; hypertension. Comparison studies:None Technique: Axial images were obtained from the skull base to the vertex. Coronal and sagittal images reconstructed from the axial data. Dose modulation, iterative reconstruction, and/or weight based adjustment of the mA/kV was utilized to reduce the radiation dose to as low as reasonably achievable. Intravenous contrast: None Findings: Scalp: No abnormalities. Bones: No fractures, blastic or lytic lesions. Brain sulci: Appropriate for age. Ventricles: Normal in size and configuration. No hydrocephalus. Extra-axial space: No abnormalities. Parenchyma: No masses, hemorrhage, or acute or chronic cortical based vascular insults.. Sellar/suprasellar region: No abnormalities. Craniocervical junction: Patent foramen magnum. No Chiari one malformation. Incidental findings: None. Impression: No acute intracranial abnormalities. Signed by: Dr. Tianna Joseph M.D. on 03/20/2020 6:16 PM Dictated By: TIANNA RAMOS MD 15 Transcribed By: ANDRY on 03/20/201815 Procedure: [id number] DX/CHEST SINGLE (PORTABLE) Exam Date: 03/20/20 Exam Time: 174 REPORT STATUS: Signed EXAMINATION: CHEST SINGLE (PORTABLE) INDICATION: Hypertensive crisis. COMPARISON: None. Correlation with CT abdomen pelvis dated 12/11/19. FINDINGS: TUBES and LINES: None. LUNGS and PLEURA: Increased density in the mid to lower left hemithorax suggestive of pleural effusion and associated atelectasis versus consolidation. A left pleural effusion was present on a prior CT examination of November 2019. Mild bilateral pulmonary venous congestion. Mild bilateral perihilar, peribronchial thickening. No pneumothorax. HEART AND MEDIASTINUM: Cardiac size is mildly enlarged. BONES AND SOFT TISSUES: No acute osseous lesion. Soft tissues are unremarkable. UPPER ABDOMEN: No free air under the diaphragm. IMPRESSION: 1. Increased density in the mid to lower left hemithorax suggestive of pleural effusion and associated atelectasis versus consolidation. 2. Mild bilateral pulmonary venous congestion. Signed by: Dr. Darryl Greer M.D. on 03/20/2020 6:10 PM Dictated By: MAXIM GREER MD, MD 09 Transcribed By: ANDRY on 03/20/201809 Procedures 12 Lead ECG Interpretation Records Management Technician: Interpreted by ED physician Date: Mar 20, 2020 Time: 20:06 Rhythm: sinus rhythm Rate: normal BPM: 85 QRS axis: normal ST segments normal: Yes T waves normal: Yes Other findings: LVH Q waves: V1, V2, V3 Clinical Impression: abnormal ECG Critical Care Time Subsequent provider I assumed direction of critical care for this patient from another provider of my specialty. Assessment & Plan Reassessment Reassessment time: 21:54 Reassessment BS NOW 220 BP NOW 149/91 AFTER HYDRALAZINE 10 M IV Assessment & Plan Final Impression: (1) DEPENDENCE ON RENAL DIALYSIS (2) HYPERTENSIVE URGENCY (3) TYPE 2 DIABETES MELLITUS WITH HYPERGLYCEMIA Assessment & Plan pt with h/o htn, esrd on dialysis presents from dialysis for elevated blood pressure. cbc, cmp, ekg, cxr, cardiac enzymes, ct brain ordered to eval fro electrolyte abnormality, myocardial infarction, pulmonary edema, intracranial abnormality pt received procardia 10 mg po over one hour ago with no change in blood pressure pt found to have glucose of 702, pt states did not take her lantus today 1954 hydralazine 10 mg iv ordered regular insulin 10 units sq ordered regular insulin 10 units iv ordered I SPOKE WITH DR LAKE PT TO BE DISCHARGED HOME AND PER DR LAKE PT NOW NEEDS TO TAKE HER BP MEDICATION PRIOR TO DIALYSIS Depart Disposition: HOME, SELF-CARE Last Vital Signs Date Time Temp Pulse Resp B/P (MAP) Pulse Ox O2 Delivery O2 Flow Rate FiO2 03/20/20 19:38 97.8 90 17 234/108 97 Medications in the ED Hydralazine HCl 10 mg NOW STAT IV ; Start 03/20/20 at 17:06; Stop 03/20/20 at 17:25; Status DC Nifedipine 10 mg ONCE STAT PO Last administered on 03/20/20at 17:30; Admin Dose 10 MG; Start 03/20/20 at 17:24; Stop 03/20/20 at 17:28; Status DC Acetaminophen/ Hydrocodone Bitart 1 ea ONCE ONCE PO Last administered on 03/20/20at 18:40; Admin Dose 1 EA; Start 03/20/20 at 17:30; Stop 03/20/20 at 17:31; Status DC Hydralazine HCl 10 mg NOW STAT IV ; Start 03/20/20 at 19:43; Stop 03/20/20 at 19:45; Status DC Insulin Human Regular 10 unit ONCE ONCE SQ ; Start 03/20/20 at 19:45; Stop 03/20/20 at 19:46; Status DC Insulin Human Regular 10 unit ONCE ONCE IV ; Start 03/20/20 at 19:45; Stop 03/20/20 at 19:46; Status DC Hydralazine HCl 20 mg STK-MED ONCE .ROUTE ; Start 03/20/20 at 19:50; Stop 03/20/20 at 19:45; Status DC REHANA OQUENDO MD Mar 20, 2020 19:55
[2020-03-20 21:59] VITALS: BP 146/49
== END 2020-03-20 22:11 | disposition home or self-care (01) ==
LOC: ER 17:06
DX: E11.65 Type 2 diabetes mellitus with hyperglycemia (principal); I12.0 Hypertensive chronic kidney disease with stage 5 chronic kidney disease or end stage renal disease; E11.22 Type 2 diabetes mellitus with diabetic chronic kidney disease; N18.6 End stage renal disease; Z99.2 Dependence on renal dialysis; E78.5 Hyperlipidemia, unspecified
CPT/HCPCS: 36415; 70450; 71045; 80053; 82550; 82553; 82948; 84484; 85025; 93005; 99284; J0360; J1817

== ENCOUNTER 2020-06-15 13:33 | Inpatient (IN) | payer MEDICARE, OTHER ==
[~2020-06-15] VITALS: Ht 162.6 cm; Wt 80.3 kg
[2020-06-15 14:39] LABS: BASOPHILS # (AUTO) 0.1 (0.0-0.1); BASOPHILS % 0.8 % (0.0-1.0); EOSINOPHILS # (AUTO) 0.5 (0.0-0.4); EOSINOPHILS % 4.5 % (0.0-6.0); HEMATOCRIT 31.2 % (34.2-44.1); LYMPHOCYTES % 8.4 % (18.0-39.1); MEAN CORPUSCULAR HEMOGLOBIN 32.4 pg (28-32); MEAN CORPUSCULAR HGB CONC 32.1 g/dL (31-35); MONOCYTES # (AUTO) 0.6 (0.2-0.8); MONOCYTES % 5.2 % (4.4-11.3); NEUTROPHILS # (AUTO) 9.2 (2.1-6.9); NEUTROPHILS % 80.6 % (38.7-80.0); PLATELET COUNT 292 x10e3/uL (140-360); RED BLOOD COUNT 3.09 x10e6/uL (3.6-5.1)
[2020-06-15 14:45] LABS: INR 0.89; PROTHROMBIN TIME 12.5 seconds (11.9-14.5)
[2020-06-15 14:46] LABS: PARTIAL THROMBOPLASTIN TIME 28.1 seconds (23.8-35.5)
[2020-06-15 14:53] LABS: ALBUMIN 3.1 g/dL (3.5-5.0); ALBUMIN/GLOBULIN RATIO 0.8 (0.8-2.0); ANION GAP 21.6 mmol/L (8-16); CALCIUM 9.1 mg/dL (8.4-10.2); CREATININE, SERUM 10.64 mg/dL (0.57-1.11)
[2020-06-15 15:04] LABS: POTASSIUM 6.6 mmol/L (3.5-5.1)
[2020-06-15] MEDS ORDERED: DEXTROSE 50% SYRINGE 50 ML IV STA (15:08)
[2020-06-15] MEDS ORDERED: SODIUM BICARBONATE 8.4% INJ 50 ML SYR IV STA (15:08)
[2020-06-15 15:22] LABS: CREATINE KINASE MB 2.4 ng/mL (0-5.0)
--- OUTSIDE RECORDS SUMMARY | 2020-06-15 15:22 | XMS REPORT | Clinical Summary ---
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
--- OUTSIDE RECORDS SUMMARY | 2020-06-15 15:22 | XMS REPORT | Clinical Summary ---
Author Author [email or web address] Address Unknown Phone Unavailable Care Team Providers Care Unindentured Apprentice Name Role Phone Mike Forbes PCP Unavailable [...] . Active FA-vit Take 1 tablet 0 Bcomp&U-sxkdhknp-edxg by mouth 2 (FOLIC ACID-VITAMIN B (two) times COMPLEX-VITAMIN daily . 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 Requested it emailed to his email address. Confirmed receipt.) 05/22/2020 Telephone Transplant Savanah San 05/17/2020 Documentation Transplant Savanah San 04/25/2020 Documentation Transplant Savanah San 04/23/2020 Documentation Transplant Savanah San Kidney Transplant Pre-evaluation 04/23/2020 Telephone Transplant Savanah San 04/22/2020 Documentation Transplant Savanah San Kidney Transplant Pre-evaluation 04/22/2020 Telephone Transplant Savanah San 03/29/2020 Abstract Transplant Savanah San 03/28/2020 Abstract Transplant Eusebia Magaña RN 02/13/2020 Documentation Transplant Eusebia Magaña RN 02/13/2020 Abstract Transplant Elizabeth Reddy 01/24/2020 Documentation Transplant Eusebia Magaña, SEAN 12/12/2019 Abstract Transplant after 06/15/2019 Social History Date Tobacco Use Types Packs/Day [...] Saturation - - Inhaled Oxygen - Concentration 03/28/2020 3:50 PM CDT Weight 94 kg (207 lb 3.7 oz) 03/28/2020 3:50 PM CDT Height 162.6 cm (5' 4") 03/28/2020 3:50 PM CDT Body Mass Index 35.57 Plan of Treatment Health Maintenance Due Date Last Done Comments BREAST CANCER SCREENING 1965 COLON CANCER SCREENING 1965 ANNUAL FOBT PNEUMOCOCCAL VACCINE 2-64 1971 YEARS AT RISK (1 of 1 - PPSV23) DIABETIC EYE EXAM 1975 DIABETIC FOOT EXAM 1975 URINE MICROALBUMIN 1975 CERVICAL CANCER SCREENING 1986 PAP ONLY (Age 21-65) MEDICARE ANNUAL WELLNESS 10/19/2014 (YEAR 2 or FIRST YEAR if no IPPE) LIPID PANEL 08/09/2017 08/09/2014 HEMOGLOBIN A1C 01/30/2019 11/01/2018, 014 INFLUENZA VACCINE (#1) 2020 Results Not on fileafter 06/15/2019 Insurance Payer Benefit Subscriber ID Type Phone Address Plan / Group MEDICARE MEDICARE A xxxxxxxxxxx Medicare B MEDICAID MEDICAID xxxxxxxxx Medicaid OF [place] [phone] [id number] (Home) [place] [id number]
--- OUTSIDE RECORDS SUMMARY | 2020-06-15 15:23 | XMS REPORT | Continuity of Care Document ---
Author Author [facility] t Organization [facility] Address [address] [place] [address] Phone Unavailable Care Team Providers Care Generation Engineer Name Role Phone NONSTAFF PCP Unavailable Myriam MAGUIRE Attphys Unavailable Archana ESTRADA, Eusebia Attphys Unavailable Savanah San Attphys Unavailable [place] Attphys Unavailable Derrek, Lance Attphys Unavailable Derrek, Lance Attphys Unavailable Alonso, Enu Attphys Unavailable Hina GARCIA LAIANATOLIY Attphys Unavailable Barry, Elizabeth Attphys Unavailable Hina WALLACE Attphys Unavailable NICK, LEWIS BHAMIDIPATI Attphys Unavailable AFUWAPE, LUKUMAN Attphys Unavailable HOSSAIN, MANCINI Attphys Unavailable ADERINTO, OLUMAYOWA Attphys Unavailable [place] Min Admphys Unavailable Derrek, Lance Admphys Unavailable AFUWAPE, LUKUMAN Admphys Unavailable HOSSAIN, MANCINI Admphys Unavailable ADERINTO, OLUMAYOWA Admphys Unavailable Payers Payer Name Policy Type Policy Number Effective Date Expiration Date S corina MEDICAREMEDICARE A BxxxxxxxxxxxMedicare xxxxxxxxxxx [facility] [place]icaid xxxxxxxxx [facility] [id number] 2019 00:00:00 [facility] Medicare A & B [id number] 2013 00:00:00 [facility] Problems Condition Name Condition Details Condition Category Status Onset Date Resolution Date Last Treatment Date Treating Clinician Comments Source ESRD (end stage renal disease) ESRD (end stage renal disease) Disea se Active 2014-05-21 00:00:00 Last Assessm ent & Plan: In evaluation. Weight loss management [facility] Allergies, Adverse Reactions, Alerts Allergy Name Allergy Type Status Severity Reaction(s) Onset Date Inacti ve Date Treating Clinician Comments Source Glyburide Propensity to adverse reactions Active Moderate PALP ATATIONS 2019-12-11 00:00:00 [facility] [employer] Allergy to substance Active 2019-12-11 00:00:00 [facility] coconut Allergy to substance Active Moderate 2019-12-11 00:00:00 [facility] Penicillin Allergy to substance Active Severe ANAPHYLAXIS 2019-12-11 0 0:00:00 [facility] Penicillins DA Active U 2018-05-30 00:00:00 [facility] glyburide DA Active SV 2018-05-30 00:00:00 [facility] Amoxicillin Propensity to adverse reactions to drug Active 2016-10-26 00:00:00 [facility] Penicillins Propensity to adverse reactions to drug Active 2016-10-26 00:00:00 [facility] Glyburide Propensity to adverse reactions Active 05-21 00:00:00 Tachycardia [facility] Penicillins Propensity to adverse reactions Active Inge phylaxis, Hives 2014-05-21 00:00:00 [facility] Social History Social Habit Start Date Stop Date Quantity Comments Source Sex Assigned At [facility] Alcohol intake 2016-10-26 00:00:00 2016-10-26 00:00:00 Current non-drinker of alcohol (finding) [facility] Smoking Status Start Date Stop Date Source Never smoker [facility] Medications Ordered Medication Name Filled Medication Name Start Date Stop Da te Current Medication? Ordering Clinician Indication Dosage Frequency Signature (SIG) Comments Components Source FA-vit Bcomp&G-ixnickyn-xdra (FOLIC ACID -VITAMIN B COMPLEX-VITAMIN X-XLFMFRWX-BVWP) 3-70-15 mg-mcg-mg Tab 2018-11-01 13:17:23 Yes 1{tbl} Q.5D Take 1 tablet by mouth 2 (two) times daily . [facility] sertraline (ZOLOFT) 50 MG tablet 2018-11-01 13:17:23 Yes 50mg Q.5D Take 50 mg by mouth 2 (two) times daily . [facility] ferric citrate (AURYXIA) 210 mg iron Tab 2018-11-01 13:17:23 Yes 420mg Q.5696974127904525225D Take 420 mg by mouth 3 (three) times daily . [facility] midodrine (PROAMATINE) 5 MG tablet 2018-11-01 13:14:49 Yes 5mg Take 5 mg by mouth. [facility] furosemide (LASIX) 80 MG tablet 2018-11-01 13:14:49 Yes 80mg Q.5010104846664645614G Take 80 mg by mouth 3 (three) times daily. [facility] insulin glargine (LANTUS) 100 unit/mL injection 2018-11-01 11:26 :30 Yes 25U QD Inject 25 Units subcutaneously every morning Use as di rected . [facility] omega-3 fatty acids-fish oil 340-1,000 mg Cap per capsule 2018-11-01 11:26:29 Yes 2g Q.5D Take 2 g by mouth 2 (two) times daily. [facility] sevelamer (RENVELA) 800 mg tablet 2018-11-01 11:26:29 Yes 800mg Take 800 mg by mouth 3 (three) times daily with meals. [facility] ondansetron (ZOFRAN) 4 MG tablet 2018-11-01 11:26:29 Yes 4mg Take 4 mg by mouth 2 (two) times daily as needed for Nausea. [facility] cholecalciferol, vitamin D3, 50,000 unit Tab 2014-06-27 10:09:48 Yes 86015U Take 50,000 Units by mouth. [facility] simvastatin (ZOCOR) 20 MG tablet 2014-05-21 14:55:17 Yes 20mg QD Take 20 mg by mouth nightly. [facility] levothyroxine (SYNTHROID, LEVOTHROID) 75 MCG tablet 05-21 14:55:17 Yes 75ug QD Take 75 mcg by mouth daily. [facility] metoprolol (LOPRESSOR) 50 MG tablet 2014-05-21 14:55:17 Yes 50mg Q.5D Take 50 mg by mouth 2 (two) times daily. [facility] Vital Signs Vital Name Observation Time Observation Value Comments Source Body height 2020-03-28 15:50:00 162.6 cm [facility] Body weight Measured 2020-03-28 15:50:00 94 kg [facility] BMI 2020-03-28 15:50:00 35.57 kg/m2 [facility] Body Temperature 2020-03-20 21:59:00 97.8 [degF] [facility] Weight 2020-03-20 17:02:00 228 [lb_av] [facility] BMI (Body Mass Index) 2020-03-20 17:02:00 39.1 kg/m2 [facility] Procedures Procedure Date / Time Performed Performing Clinician Grant yolande Computed tomography of brain without radiopaque contrast 2020-03 00:00:00 [facility] CT of abdomen and pelvis without contrast 2019-12-11 00:00:00 [facility] Plan of Care Planned Activity Planned Date Details Comments Source Future Scheduled Test 2020-07-18 00:00:00 INFLUENZA VACCINE [code = INFLUENZA VACCINE] [facility] Future Scheduled Test 2020-06-18 00:00:00 INFLUENZA VACCINE (#1) [code = [facility]FLU[facility]ACCINE (#[facility] 2019-01-30 00:00:00 Hemoglobin A1c sandy surement (procedure) [code = 62977384] [facility] Future Scheduled Test 2017-08-09 00:00:00 Lipid panel (proce dure) [code = 63865290] [facility] Future Scheduled Test 2015 00:00:00 BREAST CANCER SCRE ENING [code = BREAST CANCER SCREENING] [facility] Scheduled Test 2015 00:00:00 COLONOSCOPY SCREEN ING [code = COLONOSCOPY SCREENING] [facility] Scheduled Test 2015 00:00:00 SHINGLES VACCINES (#1) [code = SHINGLES VACCINES (#1)] [facility] Scheduled Test 2014-10-19 00:00:00 MEDICARE ANNUAL WE LLNESS (YEAR 2 or FIRST YEAR if no IPPE) [code = MEDICARE ANNUAL WELLNESS (YEAR 2 or FIRST YEAR if no IPPE)] [facility] Future Scheduled Test 1986 00:00:00 Screening for yareli gnant neoplasm of cervix (procedure) [code = 736493143] [facility] Future Scheduled Test 1986 00:00:00 Screening for yareli gnant neoplasm of cervix (procedure) [code = 007005149] [facility] Future Scheduled Test 1975 00:00:00 DIABETIC FOOT EXAM [code = DIABETIC FOOT EXAM] [facility] Scheduled Test 1975 00:00:00 URINE MICROALBUMIN [code = URINE MICROALBUMIN] [facility] Scheduled Test 1975 00:00:00 DIABETIC EYE EXAM [code = DIABETIC EYE EXAM] [facility] Future Scheduled Test 1975 00:00:00 Diabetic foot exam ination (regime/therapy) [code = 150142765] [facility] Future Scheduled Test 1975 00:00:00 Urine screening fo r protein (procedure) [code = 451293274] [facility] Future Scheduled Test 1971 00:00:00 PNEUMOCOCCAL VACCI NE 2-64 YEARS AT RISK (1 of 1 - PPSV23) [code = PNEUMOCOCCAL VACCINE 2-64 YEARS AT RISK (1 of 1 - PPSV23)] [facility] Future Scheduled Test 1965 00:00:00 DIABETIC RETINAL E YE EXAM [code = DIABETIC RETINAL EYE EXAM] [facility] Future Scheduled Test 1965 00:00:00 Screening for yareli gnant neoplasm of breast (procedure) [code = 688900346] [facility] Future Scheduled Test 1965 00:00:00 Screening for yareli gnant neoplasm of colon (procedure) [code = 090858037] [facility] Instructions Hypertension [facility] Instructions Hyperglycemia [facility] Instructions Kidney Failure [facility] Encounters Start Date/Time End Date/Time Encounter Type Admission Type Attendi [facility] Care Department Encounter ID Source 2020-06-04 14:45:00 2020-06-07 18:32:00 Inpatient 1 [place] [facility] [id number] [facility] 2020-06-04 14:45:00 2020-06-04 14:45:00 Inpatient 1 [place] [facility] [id number] [facility] 2020-05-31 17:10:00 2020-05-31 19:35:00 Emergency 1 Lance Ellis Lance [facility] [id number] [facility] 2020-05-31 17:10:00 2020-05-31 17:10:00 Emergency [facility] [id number] [facility] 2020-03-20 17:06:00 2020-03-20 22:11:00 Departed Emergency Room 1 [facility] [id number] [facility] 2019-12-11 14:05:00 2019-12-11 20:30:00 Departed Emergency Room 1 MIAMI [facility] [id number] [facility] 2019-03-19 09:53:00 2019-03-19 13:10:00 Departed Emergency Room 1 TEJAL WALLACE [facility] [id number] [facility] 2018-06-03 00:24:00 2018-06-03 03:00:00 Departed Emergency Room [facility] [id number] [facility] 2018-06-02 22:24:00 2018-06-02 23:20:00 Departed Emergency Room [facility] [id number] [facility] 2017-12-01 11:50:00 2017-12-01 11:50:00 Emergency E AFALEX SENIOR AN [facility] [id number] [facility] 2017-10-30 10:20:00 2017-10-30 10:20:00 Emergency E FATOU GERMAIN CLEMENTINA [facility] [id number] [facility] 2017-06-10 16:45:00 2017-06-10 16:45:00 Outpatient [facility] [id number] [facility] Results Test Description Test Time Test Comments Results Result Comments Source CHEST 2 VIEWS 2020-06-12 13:38:00 [place] [address] Patient Name: DAYO MCINTYRE MR #: [id number] : 1965 Age/Sex: 54/F Req #: [id number] Adm Physician: Ordered by: YOLI MAGUIRE MD Report #: [id number] Location: OR Room/Bed: Procedure: [id number] DX/CHEST 2 VIEWS Exam Date: 06/12/20 Exam Time: 1304 REPORT STATUS: Signed EXAMINATION: CHEST 2 VIEWS INDICATION: Pre-operative COMPARISON: Chest radiograph 03/20/2020 FINDINGS: LINES/TUBES:None LUNGS:Left lung volumes are low. Right lung is well-inflated. Left basilar opacities silhouette the left hemidiaphragm. PLEURA:Moderate left pleural effusion. No right pleural effusion. No pneumothorax. MEDIASTINUM:The cardiomediastinal silhouette appears unchanged in size and shape. BONES/SOFT TISSUES:No acute osseous injury. ABDOMEN:No free air under the diaphragm. IMPRESSION: Moderate left pleural effusion, increased from 03/20/2020. Left basilar opacities, most likely subsegmental atelectasis. Signed by: Joey Lugo MD on 06/12/2020 1:40 PM Dictated By: JOEY LUGO MD 1340 Transcribed By: ANDRY on 06/12/20 1340 COPY TO: YOLI MAGUIRE MD POC Glucose 2020-06-07 17:53:23 Test Item Glucose POC (test code = Glucose POC) 137 mg/dL 70-115 H If you consider your patient critically ill, the Larry-Accu Check Infrom II meter should not be used for Glucose determination. Draw a venous Glucose and send to the main Lab for analysis. POC [id number] 12:32:25* Test Item Value Reference Range Interpretation Comments Glucose POC (test code = Glucose POC) 227 mg/dL 70-115 H If you consider your patient critically ill, the Larry-Accu Check Infrom II meter should not be used for Glucose determination. Draw a venous Glucose and send to the main Lab for analysis. POC [id number] 07:05:57* Test Item Value Reference Range Interpretation Comments Glucose POC (test code = Glucose POC) 173 mg/dL 70-115 H If you consider your patient critically ill, the Larry-Accu Check Infrom II meter should not be used for Glucose determination. Draw a venous Glucose and send to the main Lab for analysis. POC [id number] 19:26:24* Test Item Value Reference Range Interpretation Comments Glucose POC (test code = Glucose POC) 262 mg/dL 70-115 H If you consider your patient critically ill, the Larry-Accu Check Infrom II meter should not be used for Glucose determination. Draw a venous Glucose and send to the main Lab for analysis. POC [id number] 16:25:57* Test Item Value Reference Range Interpretation Comments Glucose POC (test code = Glucose POC) 220 mg/dL 70-115 H If you consider your patient critically ill, the Larry-Accu Check Infrom II meter should not be used for Glucose determination. Draw a venous Glucose and send to the main Lab for analysis. POC [id number] 11:59:28* Test Item Value Reference Range Interpretation Comments Glucose POC (test code = Glucose POC) 274 mg/dL 70-115 H If you consider your patient critically ill, the Laryr-Accu Check Infrom II meter should not be used for Glucose determination. Draw a venous Glucose and send to the main Lab for analysis. CT Ankle w/o Contrast [id number] 10:41:51Patient: DAYO MCINTYRE Date/Time06/05/2020 17:01 CDTReason for ExamFractureReportStudy: CT Ankle w/o Contrast RightHistory: FractureTechnique: CT examination of the right ankle was performed without intravenous contrast utilizing soft tissue algorithm. Sagittal and coronal reconstructions were also obtained. 3-D images were also obtained.One or more of the following dose reduction techniques were used: Automated exposure control, adjustment of the mA and/or kV according to patient size, and/or utilization of iterative reconstruction technique. Total DLP: 172.5mGy-cm.Comparison: 05/31/2020Site: N79Iuwngukx:There is a predominantly transversely oriented f racture involving the distal fibula at the level of the tibial plafond with 6 mm lateral translation of the lateral malleolus with up to 4 mm craniocaudal distr action. There are a few ossific fragments insinuating between the fracture site measuring up to 3.5 mm in length. Note is made of a curvilinear ossific density anterior medial to the lateral malleolus. The main fracture fragment margins josué ear well-corticated. There is chronic bony remodeling of the posterior malleolus . There is cortical disruption involving the posterior aspect of the medial mall eolus as best seen on sagittal image 10. There is widening of the medial ankle m ortise.The Achilles tendon is intact. There is no evidence for tendon entrapment .There is extensive subcutaneous reticulation along the medial lower leg with ch alky calcification, this may be sequela of remote injury. There are extensive ar terial atherosclerotic calcifications. There is relatively diffuse subcutaneous edema.IMPRESSION:1. Chronic lateral and posterior malleolar fractures as above , in association with medial ankle mortise widening.2. Cortical disruption at the posterior medial malleolus indicative of a medial flexor retinacular tear.3. Additional chronic findings as above, including extensive arterial atheroscle rotic disease. Final Dictated by: MD Bower Robert KDictated DT/TM: 06/06/2020 10:35 amSigned by: MD Bower Robert KSigned (Electronic Signature): 06/06/2020 10:41 amPOC [id number] 08:15:25* Test Item Value Reference Range Interpretation Comments Glucose POC (test code = Glucose POC) 217 mg/dL 70-115 H If you consider your patient critically ill, the Larry-Accu Check Infrom II meter should not be used for Glucose determination. Draw a venous Glucose and send to the main Lab for analysis. POC [id number] 22:06:26* Test Item Value Reference Range Interpretation Comments Glucose POC (test code = Glucose POC) 233 mg/dL 70-115 H Notify RN or MDIf you consider your patient critically ill, the Larry-Accu Check Infrom II meter should not be used for Glucose determination. Draw a venous Glucose and send to the main Lab for analysis. POC [id number] 16:37:18* Test Item Value Reference Range Interpretation Comments Glucose POC (test code = Glucose POC) 96 mg/dL 70-115 Notify RN or MDIf you consider your patient critically ill, the Larry-Accu Check Infrom II meter should not be used for Glucose determination. Draw a venous Glucose and send to the main Lab for analysis. Hepatitis B Surface [id number] 13:27:25* Test Item Value Reference Range Interpretation Comments Hep Bs Ag (test code = Hep Bs Ag) Non-Reactive Non-Reactive POC [id number] 10:32:27* Test Item Value Reference Range Interpretation Comments Glucose POC (test code = Glucose POC) 412 mg/dL 70-115 Notify RN or MDIf you consider your patient critically ill, the Larry-Accu Check Infrom II meter should not be used for Glucose determination. Draw a venous Glucose and send to the main Lab for analysis. POC [id number] 06:41:52* Test Item Value Reference Range Interpretation Comments Glucose POC (test code = Glucose POC) 261 mg/dL 70-115 H If you consider your patient critically ill, the Larry-Accu Check Infrom II meter should not be used for Glucose determination. Draw a venous Glucose and send to the main Lab for analysis. XR Chest 1 View [id number] 06:19:23Patient: DAYO MCINTYRE Date/Time06/05/2020 02:53 CDTReason for ExamCongestionReportAFTER HOURS SERVICE ON: 06/05/2020 6:18 AMAP Portable ChestLocation Code [id number]: CongestionFINDINGS:There is a persistent moderate left pleural effusion and left base atelectasis. Cannot exclude an underlying mass or other infiltrate. There is mild central vascular congestion. Comparison made to 02/20/2020. There is no cardiomegaly. There is no pneumothorax.IMPRESSION:Persistent moderate left pleural effusion and left basilar consolidation.Mild central vascular congestion. Final Dictated by: MD Clark Mohammad TDictated DT/TM: 06/05/2020 6:18 amSigned by: MD Clark Mohammad TSigned (Electronic Signature): 06/05/2020 6:19 amPOC [id number] 04:11:47* Test Item Value Reference Range Interpretation Comments Glucose POC (test code = Glucose POC) 327 mg/dL 70-115 H If you consider your patient critically ill, the Larry-Accu Check Infrom II meter should not be used for Glucose determination. Draw a venous Glucose and send to the main Lab for analysis. POC [id number] 00:25:27* Test Item Value Reference Range Interpretation Comments Glucose POC (test code = Glucose POC) 316 mg/dL 70-115 H Notify RN or MDIf you consider your patient critically ill, the Larry-Accu Check Infrom II meter should not be used for Glucose determination. Draw a venous Glucose and send to the main Lab for analysis. Troponin [id number] 23:41:48* Test Item Value Reference Range Interpretation Comments Troponin-I (test code = Troponin-I) 125 pg/mL <=45 Critical results called to 8751 at 06/04/2020 23:40:37 CDT by og. Read back and verified? no*in transport to 5th floor*The 99th percentile URL for the assay is <45 pg/ml. A rise and fall in Troponin I with at least one value above the 99th percentile with clinical evidence of myocardial ischemia would support a diagnosis of AMI. A delta of at least 20% is recommended to assess acute changes in results above the 99th percentile in serial measurements. Serial cardiac troponin measurements are recommended at 0, 3, 6 hours. POC [id number] 19:21:20* Test Item Value Reference Range Interpretation Comments Glucose POC (test code = Glucose POC) 324 mg/dL 70-115 H Notify RN or MDIf you consider your patient critically ill, the Larry-Accu Check Infrom II meter should not be used for Glucose determination. Draw a venous Glucose and send to the main Lab for analysis. US Lower Ext Venous Duplex [id number] 18:19:32Patient: DAYO MCINTYRE JUAN LUIS Date/Time06/04/2020 18:07 CDTReason for ExamExtremity EdemaReportEXAM: LEFT LOWER EXTREMITY VENOUS DUPLEX ULTRASOUNDINDICATION: Extremity EdemaCOMPARISON: None availableTECHNIQUE: Shore scale, color Doppler and spectral waveform analysis of the left lower extremity deep venous system was performed.FINDINGS:LEFT:COMMON FEMORAL: Fully compressible with normal spontaneous waveforms.SUPERFICIAL FEMORAL, PROXIMAL: Fully compressible with normal spontaneous waveforms.SUPERFICIAL FEMORAL, MID: Patent with normal spontaneous waveforms.SUPERFICIAL FEMORAL, DISTAL: Fully compressible with normal spontaneous waveforms.POPLITEAL: Fully compressible with normal spontaneous waveforms.Other: Normal response to augmentation.There is a Walker's cyst in the left popliteal fossa measuring 1.2 x 1.1 x 3.2 cm .IMPRESSION:No evidence of deep venous thrombosis in the left lower extremity.LO CATION: R 16 Final Dictated by: MD Bhat Melanie CDictated DT/TM : 06/04/2020 6:19 pmSigned by: MD Bhat Melanie CSigned (Electronic Signatur e): 06/04/2020 6:19 pmCT Brain/Head w/o [id number] 17:38:26Patient: DAYO MCINTYRE Date/Time06/04/2020 17:22 CDTReason for ExamWeaknessReportEXAM: CT BRAIN WITHOUT CONTRASTINDICATION: WeaknessCOMPARISON: March 13, 2010TECHNIQUE: Routine axial noncontrast CT images of the brain were obtained.IV contrast: None.DLP: 816.3 mG y-cmFINDINGS:No intra-axial or extra-axial fluid collections are identified. No acute hemorrhage.There is normal differentiation of the shore and white matter. T he ventricles and sulci are normal in size and shape with no midline shift or ma ss effect. The basal cisterns are patent. The posterior fossa and fourth ventric le are normal.The paranasal sinuses and mastoid air cells are clear. No calvaria l lesions. Skull base is intact. Orbits and globes are unremarkable.IMPRESSION:N o acute intracranial abnormality. No intracranial hemorrhage.LOCATION: [facility]98[facility] T exam was performed according to our departmental dose optimization program, wh ich includes automated exposure control, adjustment of the mA and/or kV accordin g to the patient size and/or use of iterative reconstructive technique. Fin al Dictated by: MD Bhat Melanie CDictated DT/TM: 06/04/2020 5:37 pmS igned by: MD Bhat Melanie CSigned (Electronic Signature): 06/04/2020 5:38 pmXR Ankle Complete 3+ Views [id number] 16:54:38Patient: DAYO MCINTYRE Date/Time06/04/2020 16:40 CDTReason for ExamInjuryReportXR Tibia/Fibula Left, XR Ankle Complete 3+ Views LeftCLINICAL INFORMATION: InjuryCOMPARISONS: None available.FINDINGS:AP and lateral images of the tibia and fibula and AP, lateral, and oblique images of the ankle were submitted.No acute fracture or malalignment is identified. The knee joint spaces appear maintained. Mild to moderate arthritic changes are present in the ankle and foot. A plantar calcaneal bone spur measures 9 mm in length. Medial calcific sclerosis is seen in the lower extremity arteries.IMPRESSION:1. No acute fracture or malalignment is identified.2. Ar thritic changes are present in the ankle and foot.3. Small plantar calcaneal tiffanie ne spur.4. Arterial calcifications.Location: R16 Final Dictated by: MD Alberto Adam FDictated DT/TM: 06/04/2020 4:48 pmSigned by: MD Alberto Adam FSigned (Electronic Signature): 06/04/2020 4:54 pmXR Tibia/Fibula Left 2020-06-04 16:54:38Patient: DAYO MCINTYRE Date/Time06/04/2020 16:40 CDTReason for ExamInjuryReportXR Tibia/Fibula Left, XR Ankle Complete 3+ Views LeftCLINICAL INFORMATION: InjuryCOMPARISONS: None available.FINDINGS:AP and lateral images of the tibia and fibula and AP, lateral, and oblique images of the ankle were submitted.No acute fracture or malalignment is identified. The knee joint spaces appear maintained. Mild to moderate arthritic changes are present in the ankle and foot. A plantar calcaneal bone spur measures 9 mm in length. Medial calcific sclerosis is seen in the lower extremity arteries.IMPRESSION:1. No acute fracture or malalignment is identified.2. Arthritic changes are present in the ankle and foot.3. Small plantar calcaneal bone spur.4. Arterial calcifications.Location: R16 Final Dictated by: MD Alberto Adam FDictated DT/TM: 06/04/2020 4:48 pmSigned by: MD Alberto Adam FSigned (Electronic Signature): 06/04/2020 4:54 pmComprehensive Metabolic Panel 2020-06-04 16:28:11* Test Item Value Reference Range Interpretation Comments Sodium Level (test code = Sodium Level) 137.0 mmol/L 136.0-145.0 Potassium Level (test code = Potassium Level) 4.00 mmol/L 3.50-5.1 0 Chloride Level (test code = Chloride Level) 97.0 mmol/L 98.0-107.0 L CO2 (test code = CO2) 32 mmol/L 20-31 H Anion Gap (test code = Anion Gap) 8.4 mmol/L 5.0-15.0 BUN (test code = BUN) 35 mg/dL 9-23 H Creatinine Level (test code = Creatinine Level) 4.43 mg/dL 0.55-1 .02 H BUN/Creat Ratio (test code = BUN/Creat Ratio) 7.9 ratio 10.0-20. 0 L Glucose Level (test code = Glucose Level) 397 mg/dL 74-106 H Calcium Level (test code = Calcium Level) 8.8 mg/dL 8.3-10.6 Alk Phos (test code = Alk Phos) 262 U/L 46-116 H Bilirubin Total (test code = Bilirubin Total) 0.6 mg/dL 0.2-1.1 Albumin Level (test code = Albumin Level) 3.3 g/dL 3.2-4.8 Protein Total (test code = Protein Total) 6.1 g/dL 5.7-8.2 ALT (test code = ALT) 15 U/L 10-49 AST (test code = AST) 16 U/L <=34 Globulin (test code = Globulin) 2.8 g/dL 2.3-3.5 A/G Ratio (test code = A/G Ratio) 1.2 g/dL 0.8-2.0 Hemolysis (test code = Hemolysis) 0 g/dL 1-2 Icterus (test code = Icterus) 0 g/dL 1-2 Lipemia (test code = Lipemia) 0 g/dL 1-2 Comprehensive Metabolic [id number] 16:28:11* Test Item Value Reference Range Interpretation Comments Sodium Level (test code = Sodium Level) 137.0 mmol/L 136.0-145.0 Potassium Level (test code = Potassium Level) 4.00 mmol/L 3.50-5.1 0 Chloride Level (test code = Chloride Level) 97.0 mmol/L 98.0-107.0 L CO2 (test code = CO2) 32 mmol/L 20-31 H Anion Gap (test code = Anion Gap) 8.4 mmol/L 5.0-15.0 BUN (test code = BUN) 35 mg/dL 9-23 H Creatinine Level (test code = Creatinine Level) 4.43 mg/dL 0.55-1 .02 H BUN/Creat Ratio (test code = BUN/Creat Ratio) 7.9 ratio 10.0-20. 0 L Glucose Level (test code = Glucose Level) 397 mg/dL 74-106 H Calcium Level (test code = Calcium Level) 8.8 mg/dL 8.3-10.6 Alk Phos (test code = Alk Phos) 262 U/L 46-116 H Bilirubin Total (test code = Bilirubin Total) 0.6 mg/dL 0.2-1.1 Albumin Level (test code = Albumin Level) 3.3 g/dL 3.2-4.8 Protein Total (test code = Protein Total) 6.1 g/dL 5.7-8.2 ALT (test code = ALT) 15 U/L 10-49 AST (test code = AST) 16 U/L <=34 Globulin (test code = Globulin) 2.8 g/dL 2.3-3.5 A/G Ratio (test code = A/G Ratio) 1.2 g/dL 0.8-2.0 eGFR AA (test code = eGFR AA) 13 mL/min/1.73 m2 >=60 L eGFR (estimated Glomerular Filtration Rate) is an estimated value, calculated from the patient's serum creatinine using the MDRD equation. It is NOT the patient's actual GFR. The eGFR provides a more clinically useful measure of kidney disease than serum creatinine alone.This calculation takes sex and race into account, if the information is provided. If the race is not provided, and the patient is -[place], multiply by 1.212. If sex is not [...] recommended by the National Kidney Foundation, http://nkdep.nih.gov Hemolysis (test code = Hemolysis) 0 g/dL 1-2 Icterus (test code = Icterus) 0 g/dL 1-2 Lipemia (test code = Lipemia) 0 g/dL 1-2 Creatine [id number] 16:28:11* Test Item Value Reference Range Interpretation Comments CK (test code = CK) 86 U/L 34-145 Troponin [id number] 16:28:11* Test Item Value Reference Range Interpretation Comments Troponin-I (test code = Troponin-I) 124 pg/mL <=45 Critical results called to lisseth siu at 06/04/2020 16:28:03 CDT by cf. Read back and verified? yThe 99th percentile URL for the assay is <45 pg/ml. A rise and fall in Troponin I with at least one value above the 99th percentile with clinical evidence of myocardial ischemia would support a diagnosis of AMI. A delta of at least 20% is recommended to assess acute changes in results above the 99th percentile in serial measurements. Serial cardiac troponin measurements are recommended at 0, 3, 6 hours. Comprehensive Metabolic [id number] 16:28:11* Test Item Value Reference Range Interpretation Comments Sodium Level (test code = Sodium Level) 137.0 mmol/L 136.0-145.0 Potassium Level (test code = Potassium Level) 4.00 mmol/L 3.50-5.1 0 Chloride Level (test code = Chloride Level) 97.0 mmol/L 98.0-107.0 L CO2 (test code = CO2) 32 mmol/L 20-31 H Anion Gap (test code = Anion Gap) 8.4 mmol/L 5.0-15.0 BUN (test code = BUN) 35 mg/dL 9-23 H Creatinine Level (test code = Creatinine Level) 4.43 mg/dL 0.55-1 .02 H BUN/Creat Ratio (test code = BUN/Creat Ratio) 7.9 ratio 10.0-20. 0 L Glucose Level (test code = Glucose Level) 397 mg/dL 74-106 H Calcium Level (test code = Calcium Level) 8.8 mg/dL 8.3-10.6 Alk Phos (test code = Alk Phos) 262 U/L 46-116 H Bilirubin Total (test code = Bilirubin Total) 0.6 mg/dL 0.2-1.1 Albumin Level (test code = Albumin Level) 3.3 g/dL 3.2-4.8 Protein Total (test code = Protein Total) 6.1 g/dL 5.7-8.2 ALT (test code = ALT) 15 U/L 10-49 AST (test code = AST) 16 U/L <=34 Globulin (test code = Globulin) 2.8 g/dL 2.3-3.5 A/G Ratio (test code = A/G Ratio) 1.2 g/dL 0.8-2.0 eGFR AA (test code = eGFR AA) 13 mL/min/1.73 m2 >=60 L eGFR (estimated Glomerular Filtration Rate) is an estimated value, calculated from the patient's serum creatinine using the MDRD equation. It is NOT the patient's actual GFR. The eGFR provides a more clinically useful measure of kidney disease than serum creatinine alone.This calculation takes sex and race into account, if the information is provided. If the race is not provided, and the patient is -[place], multiply by 1.212. If sex is not [...] eGFR Non-AA (test code = eGFR Non-AA) 10.37 mL/min/1.73 m2 >=60.00 L eGFR (estimated Glomerular Filtration Rate) is an estimated value, calculated from the patient's serum creatinine using the MDRD equation. It is NOT the patient's actual GFR. The eGFR provides a more clinically useful measure of kidney disease than serum creatinine alone.This calculation takes sex and race into account, if the information is provided. If the race is not provided, and the patient is -[place], multiply by 1.212. If sex is not [...] recommended by the National Kidney Foundation, http://nkdep.nih.gov Hemolysis (test code = Hemolysis) 0 g/dL 1-2 Icterus (test code = Icterus) 0 g/dL 1-2 Lipemia (test code = Lipemia) 0 g/dL 1-2 Automated [id number] 16:14:12* Test Item Value Reference Range Interpretation Comments Neutro Auto (test code = Neutro Auto) 84.3 % 36.0-70.0 H Lymph Auto (test code = Lymph Auto) 6.7 % 12.0-44.0 L Butler Auto (test code = Butler Auto) 5.8 % 0.0-11.0 Eos, Auto (test code = Eos, Auto) 2.2 % 0.0-7.0 Basophil Auto (test code = Basophil Auto) 0.4 % 0.0-2.0 Neutro Absolute (test code = Neutro Absolute) 7.5 x10 1.6-7.4 H Lymph Absolute (test code = Lymph Absolute) .60 x10 .50-4.60 Butler Absolute (test code = Butler Absolute) .52 x10 .00-1.20 Eos Absolute (test code = Eos Absolute) 0.20 x10 0.00-0.74 Baso Absolute (test code = Baso Absolute) 0.04 x10 0.00-0.21 IG [id number] 16:14:12* Test Item Value Reference Range Interpretation Comments IG (test code = IG) 0.6 % 0.0-5.0 IG Abs (test code = IG Abs) 0 x10 N Complete Blood Count with [id number] 16:14:11* Test Item Value Reference Range Interpretation Comments WBC (test code = WBC) 8.9 x10 4.4-10.5 RBC (test code = RBC) 2.99 x10 3.75-5.20 L Hgb (test code = Hgb) 9.7 g/dL 12.2-14.8 L MCV (test code = MCV) 102.00 fL 80.00-100.00 H Hct (test code = Hct) 30.5 % 36.5-44.4 L MCHC (test code = MCHC) 31.80 g/dL 32.00-37.50 L RDW CV (test code = RDW CV) 12.9 % 11.5-14.5 MCH (test code = MCH) 32.4 pg 27.0-32.5 Platelets (test code = Platelets) 197.0 x10 140.0-440.0 MPV (test code = MPV) 11.6 fL N Slide Review (test code = Slide Review) Auto Auto Result created by GL_SJM_SLIDE_REV_AUTO GL_[email or web address]_RFLX nRBC (test code = nRBC) 0 N NRBC Abs (test code = NRBC Abs) 0.00 x10 N Pos Diff XN (test code = Pos Diff XN) A N IPF (test code = IPF) 0 % N POC [id number] 16:00:17* Test Item Value Reference Range Interpretation Comments Glucose POC (test code = Glucose POC) 390 mg/dL 70-115 H If you consider your patient critically ill, the Larry-Accu Check Infrom II meter should not be used for Glucose determination. Draw a venous Glucose and send to the main Lab for analysis. [id number] 20:54:54* Test Item Value Reference Range Interpretation Comments RBC Morph (test code = RBC Morph) As Indicated Normal A Anisocyte (test code = Anisocyte) 1+ None Hypochromia (test code = Hypochromia) None Seen None Seen Microcyte (test code = Microcyte) None Seen None Seen Macrocyte (test code = Macrocyte) 1+ None Seen Poik (test code = Poik) None Seen None Seen Polychrom (test code = Polychrom) None Seen None Seen Acanthocyte (test code = Acanthocyte) None Seen None Seen Baso Stippling RBC (test code = Baso Stippling RBC) None Seen No ne Seen Plt Estimation (test code = Plt Estimation) Normal Normal Comprehensive Metabolic [id number] 19:34:58* Test Item Value Reference Range Interpretation Comments Sodium Level (test code = Sodium Level) 126.0 mmol/L 136.0-145.0 L Potassium Level (test code = Potassium Level) 4.50 mmol/L 3.50-5.1 0 Chloride Level (test code = Chloride Level) 85.0 mmol/L 98.0-107.0 L CO2 (test code = CO2) 27 mmol/L 20-31 Anion Gap (test code = Anion Gap) 14.3 mmol/L 5.0-15.0 BUN (test code = BUN) 53 mg/dL 9-23 H Creatinine Level (test code = Creatinine Level) 6.03 mg/dL 0.55-1 .02 H BUN/Creat Ratio (test code = BUN/Creat Ratio) 8.8 ratio 10.0-20. 0 L Glucose Level (test code = Glucose Level) 830 mg/dL 74-106 Critical results called anay rivas at 05/31/2020 19:34:47 CDT by cf. Read back and verified? y Calcium Level (test code = Calcium Level) 8.2 mg/dL 8.3-10.6 L Alk Phos (test code = Alk Phos) 330 U/L 46-116 H Bilirubin Total (test code = Bilirubin Total) 0.4 mg/dL 0.2-1.1 Albumin Level (test code = Albumin Level) 4.2 g/dL 3.2-4.8 Protein Total (test code = Protein Total) 7.2 g/dL 5.7-8.2 ALT (test code = ALT) 18 U/L 10-49 AST (test code = AST) 12 U/L <=34 Globulin (test code = Globulin) 3.0 g/dL 2.3-3.5 A/G Ratio (test code = A/G Ratio) 1.4 g/dL 0.8-2.0 Hemolysis (test code = Hemolysis) 0 g/dL 1-2 Icterus (test code = Icterus) 0 g/dL 1-2 Lipemia (test code = Lipemia) 0 g/dL 1-2 Comprehensive Metabolic [id number] 19:34:58* Test Item Value Reference Range Interpretation Comments Sodium Level (test code = Sodium Level) 126.0 mmol/L 136.0-145.0 L Potassium Level (test code = Potassium Level) 4.50 mmol/L 3.50-5.1 0 Chloride Level (test code = Chloride Level) 85.0 mmol/L 98.0-107.0 L CO2 (test code = CO2) 27 mmol/L 20-31 Anion Gap (test code = Anion Gap) 14.3 mmol/L 5.0-15.0 BUN (test code = BUN) 53 mg/dL 9-23 H Creatinine Level (test code = Creatinine Level) 6.03 mg/dL 0.55-1 .02 H BUN/Creat Ratio (test code = BUN/Creat Ratio) 8.8 ratio 10.0-20. 0 L Glucose Level (test code = Glucose Level) 830 mg/dL 74-106 Critical results called anay rivas at 05/31/2020 19:34:47 CDT by cf. Read back and verified? y Calcium Level (test code = Calcium Level) 8.2 mg/dL 8.3-10.6 L Alk Phos (test code = Alk Phos) 330 U/L 46-116 H Bilirubin Total (test code = Bilirubin Total) 0.4 mg/dL 0.2-1.1 Albumin Level (test code = Albumin Level) 4.2 g/dL 3.2-4.8 Protein Total (test code = Protein Total) 7.2 g/dL 5.7-8.2 ALT (test code = ALT) 18 U/L 10-49 AST (test code = AST) 12 U/L <=34 Globulin (test code = Globulin) 3.0 g/dL 2.3-3.5 A/G Ratio (test code = A/G Ratio) 1.4 g/dL 0.8-2.0 eGFR AA (test code = eGFR AA) 9 mL/min/1.73 m2 >=60 L eGFR (estimated Glomerular Filtration Rate) is an estimated value, calculated from the patient's serum creatinine using the MDRD equation. It is NOT the patient's actual GFR. The eGFR provides a more clinically useful measure of kidney disease than serum creatinine alone.This calculation takes sex and race into account, if the information is provided. If the race is not provided, and the patient is -[place], multiply by 1.212. If sex is not [...] recommended by the National Kidney Foundation, http://nkdep.nih.gov Hemolysis (test code = Hemolysis) 0 g/dL 1-2 Icterus (test code = Icterus) 0 g/dL 1-2 Lipemia (test code = Lipemia) 0 g/dL 1-2 Comprehensive Metabolic [id number] 19:34:58* Test Item Value Reference Range Interpretation Comments Sodium Level (test code = Sodium Level) 126.0 mmol/L 136.0-145.0 L Potassium Level (test code = Potassium Level) 4.50 mmol/L 3.50-5.1 0 Chloride Level (test code = Chloride Level) 85.0 mmol/L 98.0-107.0 L CO2 (test code = CO2) 27 mmol/L 20-31 Anion Gap (test code = Anion Gap) 14.3 mmol/L 5.0-15.0 BUN (test code = BUN) 53 mg/dL 9-23 H Creatinine Level (test code = Creatinine Level) 6.03 mg/dL 0.55-1 .02 H BUN/Creat Ratio (test code = BUN/Creat Ratio) 8.8 ratio 10.0-20. 0 L Glucose Level (test code = Glucose Level) 830 mg/dL 74-106 Critical results called anay rivas at 05/31/2020 19:34:47 CDT by cf. Read back and verified? y Calcium Level (test code = Calcium Level) 8.2 mg/dL 8.3-10.6 L Alk Phos (test code = Alk Phos) 330 U/L 46-116 H Bilirubin Total (test code = Bilirubin Total) 0.4 mg/dL 0.2-1.1 Albumin Level (test code = Albumin Level) 4.2 g/dL 3.2-4.8 Protein Total (test code = Protein Total) 7.2 g/dL 5.7-8.2 ALT (test code = ALT) 18 U/L 10-49 AST (test code = AST) 12 U/L <=34 Globulin (test code = Globulin) 3.0 g/dL 2.3-3.5 A/G Ratio (test code = A/G Ratio) 1.4 g/dL 0.8-2.0 eGFR AA (test code = eGFR AA) 9 mL/min/1.73 m2 >=60 L eGFR (estimated Glomerular Filtration Rate) is an estimated value, calculated from the patient's serum creatinine using the MDRD equation. It is NOT the patient's actual GFR. The eGFR provides a more clinically useful measure of kidney disease than serum creatinine alone.This calculation takes sex and race into account, if the information is provided. If the race is not provided, and the patient is -[place], multiply by 1.212. If sex is not [...] eGFR Non-AA (test code = eGFR Non-AA) 7.27 mL/min/1.73 m2 >=60.00 L eGFR (estimated Glomerular Filtration Rate) is an estimated value, calculated from the patient's serum creatinine using the MDRD equation. It is NOT the patient's actual GFR. The eGFR provides a more clinically useful measure of kidney disease than serum creatinine alone.This calculation takes sex and race into account, if the information is provided. If the race is not provided, and the patient is -[place], multiply by 1.212. If sex is not [...] recommended by the National Kidney Foundation, http://nkdep.nih.gov Hemolysis (test code = Hemolysis) 0 g/dL 1-2 Icterus (test code = Icterus) 0 g/dL 1-2 Lipemia (test code = Lipemia) 0 g/dL 1-2 Complete Blood Count with [id number] 19:25:22* Test Item Value Reference Range Interpretation Comments WBC (test code = WBC) 11.2 x10 4.4-10.5 H RBC (test code = RBC) 3.30 x10 3.75-5.20 L Hgb (test code = Hgb) 10.8 g/dL 12.2-14.8 L Hct (test code = Hct) 35.3 % 36.5-44.4 L MCV (test code = MCV) 107.00 fL 80.00-100.00 H MCHC (test code = MCHC) 30.60 g/dL 32.00-37.50 L RDW CV (test code = RDW CV) 12.6 % 11.5-14.5 MCH (test code = MCH) 32.7 pg 27.0-32.5 H Platelets (test code = Platelets) 200.0 x10 140.0-440.0 MPV (test code = MPV) 11.5 fL N Slide Review (test code = Slide Review) Smear Auto A Result created by GL_SJM_SLIDE_REV_AUTO GL_SJM_XN_RFLX nRBC (test code = nRBC) 0 N NRBC Abs (test code = NRBC Abs) 0.00 x10 N Pos Morph XN (test code = Pos Morph XN) A N IPF (test code = IPF) 0 % N Automated [id number] 19:25:22* Test Item Value Reference Range Interpretation Comments Neutro Auto (test code = Neutro Auto) 81.8 % 36.0-70.0 H Lymph Auto (test code = Lymph Auto) 10.1 % 12.0-44.0 L Butler Auto (test code = Butler Auto) 5.3 % 0.0-11.0 Eos, Auto (test code = Eos, Auto) 1.5 % 0.0-7.0 Basophil Auto (test code = Basophil Auto) 0.5 % 0.0-2.0 Neutro Absolute (test code = Neutro Absolute) 9.2 x10 1.6-7.4 H Lymph Absolute (test code = Lymph Absolute) 1.13 x10 .50-4.60 Butler Absolute (test code = Butler Absolute) .59 x10 .00-1.20 Eos Absolute (test code = Eos Absolute) 0.17 x10 0.00-0.74 Baso Absolute (test code = Baso Absolute) 0.06 x10 0.00-0.21 IG [id number] 19:25:22* Test Item Value Reference Range Interpretation Comments IG (test code = IG) 0.8 % 0.0-5.0 IG Abs (test code = IG Abs) 0 x10 N XR Foot Complete 3+ Views [id number] 18:40:44Patient: ZULEYKA DAYOOWEN MCKNIGHT Date/Time05/31/2020 18:32 CDTReason for ExamInjuryReportEXAM: XR Ankle Complete 3+ Views Right, XR Foot Complete 3+ Views RightHISTORY: FallCOMPARISON: None available time of interpretation.FINDINGS:Frontal, lateral views of the right foot and ankle are provided.Subacute appearing fracture of the distal fibula with mild displacement. 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 Overlying swelling is p resent. Final Dictated by: MD Wang Haider ADictated DT/TM: 05/18 6:38 pmSigned by: MD Wang Haider ASigned (Electronic Signature): 6:40 pmXR Ankle Complete 3+ Views [id number] 18:40:44Patient: DAYO MCINTYRE Date/Time05/31/2020 18:32 CDTReason for ExamFallReportEXAM: XR Ankle Complete 3+ Views Right, XR Foot Complete 3+ Views RightHISTORY: FallCOMPARISON: None brett ilable time of interpretation.FINDINGS:Frontal, lateral views of the right foot and ankle are provided.Subacute appearing fracture of the distal fibula with mil d displacement. Overlying lateral malleolar swelling is present.IMPRESSION:Subac [place] fracture of the distal fibula with mild dysplasia. Overlying swelling is pre sent. Final Dictated by: MD Wang Haider ADictated DT/TM: 2019 6:38 pmSigned by: MD Wang Haider ASigned (Electronic Signature): 05/18 6:40 pmXR Spine Lumbosacral 2 or 3 [id number] 18:38:35Patient: DAYO MCINTYRE Date/Time05/31/2020 18:32 CDTReason for ExamInjuryReportEXAM: XR Spine Thoracic 2 Views, XR Spine Lumbosacral 2 or 3 ViewsHISTORY: PainFINDINGS:AP, lateral views of the thoracic and lumbar spine.Vertebral body heights and alignment are ap propriate. No acute fracture is seen.IMPRESSION:No acute osseous abnormality. Final Dictated by: MD Wang Haider ADictated DT/TM: 05/31/2020 6: 37 pmSigned by: MD Wang Haider ASigned (Electronic Signature): 05/31/2020 6:38 pmXR Spine Thoracic 2 [id number] 18:38:35Patient: DAYO MCINTYRE Date/Time05/31/2020 18:32 CDTReason for ExamInjuryReportEXAM: XR Spine Thoracic 2 Views, XR Spine Lumbosacral 2 or 3 ViewsHISTORY: PainFINDINGS:AP, lateral views of the thoracic and lumbar spine.Vertebral body heights and alignment are appropriate. No acute fracture is seen.IMPRESSION:No acute osseous abnormality. Final Dictated by: MD Wang Haider ADictated DT/TM: 05/31/2020 6:37 pmSigned by: MD Wang Haider ASigned (Electronic Signature): 05/31/2020 6:38 pmCHEST SINGLE (PORTABLE)2020-03-20 18:05:00 [place] [address] Patient Name: DAYO MCINTYRE MR #: [id number] : 1965 Age/Sex: 54/F Req #: [id number] Adm Physician: Ordered by: PARAM GARCIA MD Report #: [id number] Location: ER Room/Bed: Procedure: [id number] DX/CHEST SIN GLE (PORTABLE) Exam Date: 03/20/20 Exam Time: 1743 REPORT STATUS: Signed EXAMINATION: CHEST SINGLE (PORTABLE) INDICATION: Hypertensive crisis. COMPAR JENNIFER: None. Correlation with CT abdomen pelvis dated 12/11/19. FINDING S: TUBES and LINES: None. LUNGS and PLEURA: Increased density in the mi d to lower left hemithorax suggestive of pleural effusion and associated atele ctasis versus consolidation. A left pleural effusion was present on a prior CT examination of November 2019. Mild bilateral pulmonary venous congestion. Mild bilateral perihilar, peribronchial thickening. No pneumothorax. HEART AND MEDIASTINUM: Cardiac size is mildly enlarged. BONES AND SOFT TISSUES: No acute osseous lesion. Soft tissues are unremarkable. UPPER ABDOMEN: No free air under the diaphragm. IMPRESSION: 1. Increased density in the mid to lower left hemithorax suggestive of pleural effusion and ass ociated atelectasis versus consolidation. 2. Mild bilateral pulmonary venou s congestion. Signed by: Dr. Darryl Hunter M.D. on 03/20/2020 6:10 PM Dictated By: MAXIM HUNTER MD, MD 09 Transcribed By: ANDRY on 03/20/201809 COPY TO: PARAM GARCIA MD CT BRAIN [id number] 17:56:00 [place] [address] Patient Name: DAYO MCINTYRE MR #: [id number] : 1965 Age/Sex: 54/F Req #: [id number] Adm Physician: Ordered by: PARAM GARCIA MD Report #: [id number] Location: ER Room/Bed: Procedure: [id number] CT/CT BRAIN WO Exam Date: 03/20/20 Exam Time: 1743 REPORT STATUS: Signed Examination: CT BRAIN WO CONTRAST History:Headaches; hypertension. Comparison studies:None Technique: Axial images were obtained from the skull base to the vertex. Co sumi and sagittal images reconstructed from the axial data. Dose modulation, iterative reconstruction, and/or weight based adjustment of the mA/kV was util ized to reduce the radiation dose to as low as reasonably achievable. Intra venous contrast: None Findings: Scalp: No abnormalities. Bones: No f ractures, blastic or lytic lesions. Brain sulci: Appropriate for age. Naren tricles: Normal in size and configuration. No hydrocephalus. Extra-axial sp baljeet: No abnormalities. Parenchyma: No masses, hemorrhage, or acute or c hronic cortical based vascular insults.. Sellar/suprasellar region: No abno rmalities. Craniocervical junction: Patent foramen magnum. No Chiari one malfo rmation. Incidental findings: None. Impression: No acute intr acranial abnormalities. Signed by: Dr. Tianna Joseph M.D. on 03/20/2020 6 :16 PM Dictated By: TIANNA RAMOS MD 15 Transcribed By: ANDRY on 03/20 COPY TO: PARAM GARCIA MD Blood leukocytes automated count (number/volume)2020-03-20 17:20:00* Test Item Value Reference Range Interpretation Comments White Blood Count (test code = 6690-2) 6.35 4.8-10.8 [facility] automated count (number/volume)2020-03-20 17:20:00* Test Item Value Reference Range Interpretation Comments Red Blood Count (test code = 789-8) 3.31 3.6-5.1 [facility] hemoglobin measurement (moles/volume)2020-03-20 17:20:00* Test Item Value Reference Range Interpretation Comments Hemoglobin (test code = 69239-5) 10.6 12.0-16.0 [facility] blood hematocrit (volume fraction)2020-03-20 17:20:00* Test Item Value Reference Range Interpretation Comments Hematocrit (test code = 4544-3) 33.3 34.2-44.1 [facility] erythrocyte mean corpuscular [id number] 17:20:00* Test Item Value Reference Range Interpretation Comments Mean Corpuscular Volume (test code = 787-2) 100.6 81-99 [facility] erythrocyte mean corpuscular hemoglobin (mass per erythrocyte)2020-03-20 17:20:00* Test Item Value Reference Range Interpretation Comments Mean Corpuscular Hemoglobin (test code = 785-6) 32.0 28-32 [facility] erythrocyte mean corpuscular hemoglobin concentration measurement (mass/volume)2020-03-20 17:20:00* Test Item Value Reference Range Interpretation Comments Mean Corpuscular Hemoglobin Concent (test code = 786-4) 31.8 31-35 [facility] Irving[facility] [id number]-[id number] 17:20:00* Test Item Value Reference Range Interpretation Comments Red Cell Distribution Width (test code = 89954-2) 12.5 11.7 -14.4 [facility] IrvingAutomated blood platelet count (count/volume)2020-03-20 17:20:00* Test Item Value Reference Range Interpretation Comments Platelet Count (test code = 777-3) 179 140-360 [facility] IrvingAutst. luke[facility] hospitaled blood segmented neutrophil count as percentage of total catfvsqsvs8996-80-48 17:20:00* Test Item Value Reference Range Interpretation Comments Neutrophils (%) (Auto) (test code = 69688-3) 79.2 38.7-80.0 [facility] IrvingAutomated blood lymphocyte count as percentage ot total bifosmwqwp9121-94-73 17:20:00* Test Item Value Reference Range Interpretation Comments Lymphocytes (%) (Auto) (test code = 736-9) 10.9 18.0-39.1 [facility] IrvingAutomated blood monocyte count as percentage of total vnyplcnfvn5550-33-43 17:20:00* Test Item Value Reference Range Interpretation Comments Monocytes (%) (Auto) (test code = 5905-5) 5.4 4.4-11.3 [facility] IrvingAutomated blood eosinophil count as percentage of total qypfjyyhbc5839-55-19 17:20:00* Test Item Value Reference Range Interpretation Comments Eosinophils (%) (Auto) (test code = 713-8) 3.1 0.0-6.0 [facility] IrvingAutomated blood basophil count as percentage of total vjnzxhhmrs9422-01-02 17:20:00* Test Item Value Reference Range Interpretation Comments Basophils (%) (Auto) (test code = 706-2) 0.8 0.0-1.0 [facility] IrvingFluoroscopic procedure less than one hour vkgkjlcj5757-01-78 17:20:00* Test Item Value Reference Range Interpretation Comments IM GRANULOCYTES % (test code = IM GRANULOCYTES %) 0.6 0.0- 1.0 [facility] IrvingAutomated blood neutrophil count 2020-03-20 17:20:00* Test Item Value Reference Range Interpretation Comments Neutrophils # (Auto) (test code = 751-8) 5.0 2.1-6.9 [facility] IrvingBlood lymphocytes count (number/volume) 2020-03-20 17:20:00* Test Item Value Reference Range Interpretation Comments Lymphocytes # (Auto) (test code = 95386-2) 0.7 1.0-3.2 [facility] IrvingBlood monocytes automated count (number/volume)2020-03-20 17:20:00* Test Item Value Reference Range Interpretation Comments Monocytes # (Auto) (test code = 742-7) 0.3 0.2-0.8 [facility] IrvingAutomated blood eosinophil count 2020-03-20 17:20:00* Test Item Value Reference Range Interpretation Comments Eosinophils # (Auto) (test code = 711-2) 0.2 0.0-0.4 [facility] IrvingAutomated blood basophil count (count/volume)2020-03-20 17:20:00* Test Item Value Reference Range Interpretation Comments Basophils # (Auto) (test code = 704-7) 0.1 0.0-0.1 [facility] IrvingFluoroscopic procedure less than one hour kgorpqhf7116-76-43 17:20:00* Test Item Value Reference Range Interpretation Comments Absolute Immature Granulocyte (auto (chago t code = Absolute Immature Granulocyte (auto) 0.04 0-0.1 [facility]eville[facility]um or plasma sodium measurement (moles/volume)2020-03-20 17:20:00* Test Item Value Reference Range Interpretation Comments Sodium Level (test code = 2951-2) 133 136-145 [facility]evilleerum or plasma potassium measurement (moles/volume)2020-03-20 17:20:00* Test Item Value Reference Range Interpretation Comments Potassium Level (test code = 2823-3) 4.8 3.5-5.1 [facility]evilleerum or plasma chloride measurement (moles/volume)2020-03-20 17:20:00* Test Item Value Reference Range Interpretation Comments Chloride Level (test code = 2075-0) 91 98-107 [facility] Beevilleerum or plasma carbon dioxide, total measurement (moles/volume)2020-03-20 17:20:00* Test Item Value Reference Range Interpretation Comments Carbon Dioxide Level (test code = 2028-9) 25 22-29 [facility]evilleerum or plasma anion cfl0671-55-32 17:20:00* Test Item Value Reference Range Interpretation Comments Anion Gap (test code = 15786-4) 21.8 8-16 [facility]evilleerum or plasma urea nitrogen measurement (mass/volume)2020-03-20 17:20:00* Test Item Value Reference Range Interpretation Comments Blood Urea Nitrogen (test code = 3094-0) 35 7-26 [facility]evilleerum or plasma creatinine measurement (mass/volume)2020-03-20 17:20:00* Test Item Value Reference Range Interpretation Comments Creatinine (test code = 2160-0) 5.67 0.57-1.11 [facility] Beevilleerum or plasma urea nitrogen/creatinine mass icqer0113-67-08 17:20:00* Test Item Value Reference Range Interpretation Comments BUN/Creatinine Ratio (test code = 3097-3) 6 6-25 [facility] IrvingEstimated glomerular filtration rate (GFR) pqnodmzdeutxx3625-40-64 17:20:00* Test Item Value Reference Range Interpretation Comments Estimat Glomerular Filtration Rate (test code = 897376478) 8 >60 Ranges were taken from the National Kidney Disease Education Program and the [facility] Kid[facility] Foundation literature.Reference ranges:60 or greater: Qjdezc39-60 ( for 3 consecutive months): Chronic kidney disease 15 or less: Kidney failureBaylor Scott & [facility] Center – IrvingGlucose ypiahqnhxpo8248-96-27 17:20:00* Test Item Value Reference Range Interpretation Comments Glucose Level (test code = KPC8349) 702 74-118 Results repeated and called to ALISA HECTOR at 1837 on 03/20/20 by LAUREL WATSON. Read back and verified.[facility]evilleerum or plasma calcium measurement (mass/volume)2020-03-20 17:20:00* Test Item Value Reference Range Interpretation Comments Calcium Level (test code = 05672-3) 8.9 8.4-10.2 [facility]evilleerum or plasma total bilirubin measurement (mass/volume)2020-03-20 17:20:00* Test Item Value Reference Range Interpretation Comments Total Bilirubin (test code = 1975-2) 0.5 0.2-1.2 [facility] IrvingFluoroscopic procedure less than one hour dkybrnpk3224-01-29 17:20:00* Test Item Value Reference Range Interpretation Comments Aspartate Amino Transf (AST/SGOT) (test code = Aspartate Amino Transf (AST/SGOT)) 20 5-34 [facility]evilleerum or plasma alanine aminotransferase measurement (enzymatic activity/volume)2020-03-20 17:20:00* Test Item Value Reference Range Interpretation Comments Alanine Aminotransferase (ALT/SGPT) (test code = 1742-6) 19 0-55 [facility] Beevilleerum or plasma protein measurement (mass/volume)2020-03-20 17:20:00* Test Item Value Reference Range Interpretation Comments Total Protein (test code = 2885-2) 7.5 6.5-8.1 [facility]evilleerum or plasma albumin measurement (mass/volume)2020-03-20 17:20:00* Test Item Value Reference Range Interpretation Comments Albumin (test code = 1751-7) 3.3 3.5-5.0 [facility] IrvingPlasma globulin measurement (mass/volume) 2020-03-20 17:20:00* Test Item Value Reference Range Interpretation Comments Globulin (test code = 22376-6) 4.2 2.3-3.5 [facility]evilleerum or plasma albumin/globulin mass jmgnk0588-80-32 17:20:00* Test Item Value Reference Range Interpretation Comments Albumin/Globulin Ratio (test code = 1759-0) 0.8 0.8-2.0 [facility]evilleerum or plasma alkaline phosphatase measurement (enzymatic activity/volume)2020-03-20 17:20:00* Test Item Value Reference Range Interpretation Comments Alkaline Phosphatase (test code = 6768-6) 292 40-150 [facility]evilleerum or plasma creatine kinase measurement (enzymatic activity/volume)2020-03-20 17:20:00* Test Item Value Reference Range Interpretation Comments Creatine Kinase (test code = 2157-6) 102 29-168 [facility] Beevilleerum or plasma creatine kinase MB measurement (mass/volume)2020-03-20 17:20:00* Test Item Value Reference Range Interpretation Comments Creatine Kinase MB (test code = 82919-4) 2.50 0-5.0 [facility] IrvingTroponin I measurement by highly sensitive enzyme yfisyoldqtx3557-95-78 17:20:00* Test Item Value Reference Range Interpretation Comments Troponin I (test code = 65555-2) 0.067 0-0.300 [facility] IrvingXR Chest 1 View Zcopibh6793-11-67 16:51:32Patient: DAYO MCINTYRE Date/Time12/21/2019 16:44 CSTReason for ExamChest painReportExam: Chest [...] Emanuel Francesco MSigned (Electronic Signature): 12/21/2019 4:51 pmCT ABDOMEN/PELVIS [id number] 20:20:00 [place] [address] Patient Name: DAYO MCINTYRE MR #: [id number] : 1965 Age/Sex: 54/F Req #: [id number] Adm Physician: Ordered by: ROSEMARY POLLOCK NP Report #: [id number] Location: ER Room/Bed: Procedure: [id number] CT/CT ABDOMEN/PELVIS WO Exam Date: Exam Time: REPORT STATUS: Signed EXAMINATION: CT of the abdomen and pelvis without contrast. TECHNIQUE: Spiral CT images of the abdomen and pelvis were performed from the lung bases to the lesser tr ochanters. No intravenous contrast was given due to decreased GFR, patient on dialysis. Coronal and sagittal reformatted images were obtained. COMPAR JENNIFER: None. CLINICAL HISTORY:Left flank pain DISCUSSION: ABSENCE OF INTRAVENOUS CONTRAST DECREASES SENSITIVITY FOR DETECTION OF FOCAL LESIONS AND VASCULAR PATHOLOGY. ABDOMEN/PELVIS: LOWER THORAX: Left-sided small -to-moderate pleural effusion, which is partly loculated and associated left l ower lobe atelectasis. Linear subsegmental atelectasis versus scarring in the lateral right lower lobe. Atherosclerotic calcification of the coronary arteri es. HEPATOBILIARY: No focal hepatic lesions. No intra or extrahepatic clair iary ductal dilation. GALLBLADDER: No radio-opaque stones or sludge. No wall thickening. SPLEEN: No splenomegaly. PANCREAS: No focal masses or ductal dilatation. ADRENALS: 1.3 cm hypodense lesion in the left adrenal g land (series 3, image 44), which measures less than 10 HU on this noncontrast exam. Right adrenal glands unremarkable. KIDNEYS/URETERS: Atrophic bilate ral kidneys. Extensive renal vascular calcifications. No stones, hydronephrosi s or evidence of obstruction. No contour abnormalities. No perinephric strandi ng. PELVIC ORGANS/BLADDER: Bladder is unremarkable. The is absent. No adnex al masses. PERITONEUM/RETROPERITONEUM: No free air or fluid. LYMPH N ODES: No intra-abdominal,retroperitoneal, pelvic or inguinal lymphadenopathy. VESSELS: Extensive atherosclerotic calcification of the aortic branches. Moderate atherosclerotic calcification of the abdominal aorta. GI TRACT: No bowel dilation or evidence of obstruction. No pericolonic inflammatory change s. Appendix is well identified and normal in caliber. BONES AND SOFT TISSUE S: No aggressive lytic lesions. Mild generalized soft tissue edema. IMPRE SSION: 1. No renal, ureteral or bladder calculi. No hydronephrosis or o bstruction. 2. Atrophic kidneys, consistent with history of end-stage renal disease. No contour abnormalities. 3. Left-sided leqzy-er-tqcfzyws pleural effusion, which is partly loculated, with associated left lower lobe atelectas is. 4. 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 No further diagnostic o r follow-up imaging is indicated. Signed by: Dr. Adams Steiner M.D. on 12/11/2019 8:25 PM Dictated By: ADAMS STEINER MD Electronically Sheri d By: ADAMS STEINER MD on 12/11/192024 Transcribed By: ANDRY on 12/11/19 COPY TO: ROSEMARY POLLOCK NP Bedside Yzixdsr0683-91-58 19:46:00 * Test Item Value Reference Range Interpretation Comments Bedside Glucose (test code = 90873-6) 334 70-120 H Meter ID: [id number] Scott & White Medical Center – IrvingCapillary blood glucose measurement by glucometer (mass/volume)2019-12-11 18:38:00* Test Item Value Reference Range Interpretation Comments Bedside Glucose (test code = 67813-7) 334 70-120 Meter ID: [id number] [facility]ohn Hospital Beevilleodium Level 2019-12-11 18:07:00* Test Item Value Reference Range Interpretation Comments Sodium Level (test code = 2951-2) 137 136-145 [facility] IrvingPotassium Yqmhj3858-36-03 18:07:00* Test Item Value Reference Range Interpretation Comments Potassium Level (test code = 2823-3) 4.1 3.5-5.1 [facility] IrvingChloride Bkmlb5512-30-82 18:07:00* Test Item Value Reference Range Interpretation Comments Chloride Level (test code = 2075-0) 98 98-107 [facility] IrvingCarbon Dioxide Unita3937-48-84 18:07:00* Test Item Value Reference Range Interpretation Comments Carbon Dioxide Level (test code = 2028-9) 27 22-29 [facility] IrvingAnion Rdi3116-70-28 18:07:00* Test Item Value Reference Range Interpretation Comments Anion Gap (test code = 72757-1) 16.1 8-16 H [facility] IrvingBlood Urea Rbwqeexc7956-23-96 18:07:00* Test Item Value Reference Range Interpretation Comments Blood Urea Nitrogen (test code = 3094-0) 25 7-26 [facility] IrvingCreatinine2020-02-24 18:07:00* Test Item Value Reference Range Interpretation Comments Creatinine (test code = 2160-0) 5.11 0.57-1.11 H [facility] IrvingBUN/Creatinine Pnepb1898-88-47 18:07:00* Test Item Value Reference Range Interpretation Comments BUN/Creatinine Ratio (test code = 3097-3) 5 6-25 L [facility] IrvingEstimat Glomerular Filtration Rate 2019-12-11 18:07:00* Test Item Value Reference Range Interpretation Comments Estimat Glomerular Filtration Rate (test code = 716662570) 9 >60 L Ranges were taken from the National Kidney Disease Education Program and the [facility]al Kidney Foundation literature.Reference ranges:60 or greater: Drjmfv93-52 ( for 3 consecutive months): Chronic kidney disease 15 or less: Kidney failureBaylor Scott & White Medical Center – IrvingGlucose Vpbsq3066-44-82 18:07:00* Test Item Value Reference Range Interpretation Comments Glucose Level (test code = OSL3606) 464 74-118 HH Results repeated and called to RALPH BURKS at 1806 on 12/11/19 by LAUREL JOSE . Read back and verified.[facility] IrvingCalcium Level 2019-12-11 18:07:00* Test Item Value Reference Range Interpretation Comments Calcium Level (test code = 62670-6) 9.1 8.4-10.2 [facility] IrvingTotal Twfmmould4426-05-46 18:07:00* Test Item Value Reference Range Interpretation Comments Total Bilirubin (test code = 1975-2) 0.5 0.2-1.2 [facility] IrvingAspartate Amino Transf (AST/SGOT) 2019-12-11 18:07:00* Test Item Value Reference Range Interpretation Comments Aspartate Amino Transf (AST/SGOT) (test code = Aspartate Amino Transf (AST/SGOT)) 24 5-34 [facility] IrvingAlanine Aminotransferase (ALT/SGPT) 2019-12-11 18:07:00* Test Item Value Reference Range Interpretation Comments Alanine Aminotransferase (ALT/SGPT) (test code = 1742-6) 16 0-55 [facility] IrvingTotal Udbhprz2503-10-25 18:07:00* Test Item Value Reference Range Interpretation Comments Total Protein (test code = 2885-2) 6.7 6.5-8.1 [facility] IrvingAlbumin2020-02-24 18:07:00* Test Item Value Reference Range Interpretation Comments Albumin (test code = 1751-7) 3.3 3.5-5.0 L [facility] IrvingGlobulin2020-02-24 18:07:00* Test Item Value Reference Range Interpretation Comments Globulin (test code = 54195-7) 3.4 2.3-3.5 [facility] IrvingAlbumin/Globulin Eiini0905-13-19 18:07:00 * Test Item Value Reference Range Interpretation Comments Albumin/Globulin Ratio (test code = 1759-0) 1.0 0.8-2.0 [facility] IrvingAlkaline Rejshktivrj1670-39-15 18:07:00* Test Item Value Reference Range Interpretation Comments Alkaline Phosphatase (test code = 6768-6) 182 40-150 H [facility] IrvingWhite Blood Rixrw2902-11-22 17:58:00* Test Item Value Reference Range Interpretation Comments White Blood Count (test code = 6690-2) 8.14 4.8-10.8 [facility] IrvingRed Blood Jghjc9210-61-21 17:58:00* Test Item Value Reference Range Interpretation Comments Red Blood Count (test code = 789-8) 3.20 3.6-5.1 L [facility] IrvingHemoglobin2020-02-24 17:58:00* Test Item Value Reference Range Interpretation Comments Hemoglobin (test code = 41194-8) 10.6 12.0-16.0 L [facility] IrvingHematocrit2020-02-24 17:58:00* Test Item Value Reference Range Interpretation Comments Hematocrit (test code = 4544-3) 32.0 34.2-44.1 L [facility] IrvingMean Corpuscular Gscsvc4069-00-05 17:58:00* Test Item Value Reference Range Interpretation Comments Mean Corpuscular Volume (test code = 787-2) 100.0 81-99 H [facility] IrvingMean Corpuscular Htysafzbef5700-62-44 17:58:00* Test Item Value Reference Range Interpretation Comments Mean Corpuscular Hemoglobin (test code = 785-6) 33.1 28-32 H [facility] IrvingMean Corpuscular Hemoglobin Concent 2019-12-11 17:58:00* Test Item Value Reference Range Interpretation Comments Mean Corpuscular Hemoglobin Concent (test code = 786-4) 33.1 31-35 [facility] IrvingRed Cell Distribution Evnwn2500-71-66 17:58:00* Test Item Value Reference Range Interpretation Comments Red Cell Distribution Width (test code = 02100-3) 12.9 11.7 -14.4 [facility] IrvingPlatelet Wbtim9164-92-66 17:58:00* Test Item Value Reference Range Interpretation Comments Platelet Count (test code = 777-3) 222 140-360 [facility] IrvingNeutrophils (%) (Auto)2019-12-11 17:58:00 * Test Item Value Reference Range Interpretation Comments Neutrophils (%) (Auto) (test code = 82583-8) 79.2 38.7-80.0 [facility] IrvingLymphocytes (%) (Auto)2019-12-11 17:58:00 * Test Item Value Reference Range Interpretation Comments Lymphocytes (%) (Auto) (test code = 736-9) 10.9 18.0-39.1 L [facility] IrvingMonocytes (%) (Auto)2019-12-11 17:58:00* Test Item Value Reference Range Interpretation Comments Monocytes (%) (Auto) (test code = 5905-5) 5.3 4.4-11.3 [facility] IrvingEosinophils (%) (Auto)2019-12-11 17:58:00 * Test Item Value Reference Range Interpretation Comments Eosinophils (%) (Auto) (test code = 713-8) 2.9 0.0-6.0 [facility] IrvingBasophils (%) (Auto)2019-12-11 17:58:00* Test Item Value Reference Range Interpretation Comments Basophils (%) (Auto) (test code = 706-2) 0.7 0.0-1.0 [facility] IrvingIM GRANULOCYTES %2019-12-11 17:58:00* Test Item Value Reference Range Interpretation Comments IM GRANULOCYTES % (test code = IM GRANULOCYTES %) 1.0 0.0- 1.0 [facility] IrvingNeutrophils # (Auto)2019-12-11 17:58:00* Test Item Value Reference Range Interpretation Comments Neutrophils # (Auto) (test code = 751-8) 6.4 2.1-6.9 [facility] IrvingLymphocytes # (Auto)2019-12-11 17:58:00* Test Item Value Reference Range Interpretation Comments Lymphocytes # (Auto) (test code = 05562-5) 0.9 1.0-3.2 L [facility] IrvingMonocytes # (Auto)2019-12-11 17:58:00* Test Item Value Reference Range Interpretation Comments Monocytes # (Auto) (test code = 742-7) 0.4 0.2-0.8 [facility] IrvingEosinophils # (Auto)2019-12-11 17:58:00* Test Item Value Reference Range Interpretation Comments Eosinophils # (Auto) (test code = 711-2) 0.2 0.0-0.4 [facility] IrvingBasophils # (Auto)2019-12-11 17:58:00* Test Item Value Reference Range Interpretation Comments Basophils # (Auto) (test code = 704-7) 0.1 0.0-0.1 [facility] IrvingAbsolute Immature Granulocyte (auto 2019-12-11 17:58:00* Test Item Value Reference Range Interpretation Comments Absolute Immature Granulocyte (auto (chago t code = Absolute Immature Granulocyte (auto) 0.08 0-0.1 [facility] IrvingMG Mammo Digital Diagnostic Right 2019-11-13 15:51:27Patient: DAYO MCINTYRE Date/Time11/13/2019 14:06 CSTReason for ExamR92.8ReportDictation Location [id number]: Diagnostic mammogram with Tomosynthesis and right breast ultrasound for 6 month follow-up of right breast noduleCOMPARISON: 03/30/2019Routine views of the right breast were obtained and interpreted with the aid of CAD. 2-D and 3-D digital mammography was performed with the [employer] digital breast tomosynthesis unitCOMMENT: Heterogeneously dense fibroglandular [...] BENIGN FINDINGSRECOMMENDATION: Resume yearly screening mammog iris [facility] AccreditationFDA CertifiedBoard Certified Radiologists(ARRT ) Registered [...] 11/13/2019 3:45 pmSigned by: MD Pereyra Phebe CSyves ed (Electronic Signature): 11/13/2019 3:51 pmUS Breast Complete Knbhg0625-40-96 15:51:27Patient: DAYO MCINTYRE Date/Time11/13/2019 14:51 CSTReason for ExamR92.8ReportDictation Location [id number]: Diagnostic mammogram with Tomosynthesis and right breast ultrasound for 6 month follow-up of right breast noduleCOMPARISON: 03/30/2019Routine views of the right breast were obtained and interpreted with the aid of CAD. 2-D and 3-D digital mammography was performed with the [employer] digital breast tomosynthesis unitCOMMENT: Heterogeneously dense fibroglandular [...] BENIGN FINDINGSRECOMMENDATION: Resume yearly screening mammog iris [facility] AccreditationFDA CertifiedBoard Certified Radiologists(ARRT ) Registered [...] CSign ed (Electronic Signature): 11/13/2019 3:51 pmTroponin [id number] 01:34:48* Test Item Value Reference Range Interpretation Comments Troponin-T (test code = Troponin-T) 109.800 ng/L 0.000-14.000 Critical results called to josiah dimas at 10/26/2019 01:34:41 VICE PRESIDENT OF NURSING by og. Read back and verified? yesThe [...] a diagnosis of chronic myocardial injury. Creatine Ffibka7725-99-11 23:47:02* Test Item Value Reference Range Interpretation Comments CK (test code = CK) 52 U/L 26-192 Creatine Kinase MB cgsbzyub3789-63-51 23:47:02* Test Item Value Reference Range Interpretation Comments CKMB (test code = CKMB) 1.7 ng/mL 0.0-2.8 CKMB % (test code = CKMB %) 3.3 % 0.0-3.4 Troponin [id number] 23:47:02* Test Item Value Reference Range Interpretation Comments Troponin-T (test code = Troponin-T) 124.600 ng/L 0.000-14.000 Verified by repeat analysis.Critical results called to ruth dempsey at 10/25/2019 23:46:55 VICE PRESIDENT OF NURSING by og. Read back and verified? yesThe [...] diagnosis of chronic myocardial injury. Comprehensive Metabolic Hhlpr2879-41-24 23:47:01* Test Item Value Reference Range Interpretation [...] called to ruth dempsey at 10/25/2019 23:46:55 VICE PRESIDENT OF NURSING by og. Read back and verified? yes [...] A/G Ratio) 1.5 ratio N Comprehensive Metabolic Vusjm0986-97-14 23:47:01* Test Item Value Reference Range Interpretation [...] called to ruth dempsey at 10/25/2019 23:46:55 VICE PRESIDENT OF NURSING by og. Read back and verified? yes [...] is not provided, and the patient is -[place], multiply by 1.212. If sex is not [...] the National Kidney Foundation, http://nkdep.nih.gov Comprehensive Metabolic Cnqsr5260-35-94 23:47:01* Test Item Value Reference Range Interpretation [...] called to ruth dempsey at 10/25/2019 23:46:55 VICE PRESIDENT OF NURSING by og. Read back and verified? yes [...] is not provided, and the patient is -[place], multiply by 1.212. If sex is not [...] is not provided, and the patient is -[place], multiply by 1.212. If sex is not [...] Kidney Foundation, http://nkdep.nih.gov Complete Blood Count with Uqodtuwrariq6275-26-05 23:27:25* Test Item Value Reference Range Interpretation [...] code = IPF) 0 % N Automated Wesnbwazoftn3515-53-52 23:27:25* Test Item Value Reference Range Interpretation Comments Neutro Auto (test code = Neutro Auto) 68.4 % 36.0-70.0 Lymph Auto (test code = Lymph Auto) 20.4 % 12.0-44.0 Butler Auto (test code = Butler Auto) 6.7 % 0.0-11.0 Eos, Auto (test code = Eos, Auto) 3.5 % 0.0-7.0 Basophil Auto (test code = Basophil Auto) 0.6 % 0.0-2.0 Neutro Absolute (test code = Neutro Absolute) 4.9 x10 1.6-7.4 Lymph Absolute (test code = Lymph Absolute) 1.45 x10 .50-4.60 Butler Absolute (test code = Butler Absolute) .48 x10 .00-1.20 Eos Absolute (test code = Eos Absolute) 0.25 x10 0.00-0.74 Baso Absolute (test code = Baso Absolute) 0.04 x10 0.00-0.21 IG [id number] 23:27:25* Test Item Value Reference Range Interpretation Comments IG (test code = IG) 0.4 % 0.0-5.0 IG Abs (test code = IG Abs) 0 x10 N XR Chest 1 View [id number] 19:24:03Patient: DAYO MCINTYRE Date/Time10/25/2019 18:59 CSTReason for ExamChest painReportLocation: [id number], FRONTAL VIEWHISTORY: Chest painFINDINGS:Since 06/24/2019, this continued left pleural thickening with scarring. The lungs are otherwise clear. The heart size is normal. The bones are unremarkable.IMPRESSION:No evidence of acute cardiopulmonary disease. Final Dictated by: MD Lizeth, SankamanDictated DT/TM: 10/25/2019 7:22 pmSigned by: MD Lizeth, [facility] (Electronic Signature): 10/25/2019 7:24 pmPOC [id number] 11:50:34* Test Item Value Reference Range Interpretation Comments Glucose POC (test code = Glucose POC) 307 mg/dL 70-115 H If you consider your patient critically ill, the Larry-Accu Check Infrom II meter should not be used for Glucose determination. Draw a venous Glucose and send to the main Lab for analysis. XR Tibia/Fibula [id number] 11:42:15Patient: DAYO MCINTYRE Date/Time10/19/2019 11:26 CSTReason for Examleft lower ext [...] the main Lab for analysis. Basic Metabolic Rlssn0144-11-10 04:01:39* Test Item Value Reference Range Interpretation [...] called to leeann goodwin at 10/19/2019 04:01:32 VICE PRESIDENT OF NURSING by og. Read back and verified? yes Calcium Level (test code = Calcium Level) 9.1 mg/dL 8.3-10.5 Basic Metabolic [id number] 04:01:39* Test Item Value Reference Range Interpretation [...] called to leeann goodwin at 10/19/2019 04:01:32 VICE PRESIDENT OF NURSING by og. Read back and verified? yes [...] is not provided, and the patient is -[place], multiply by 1.212. If sex is not [...] the National Kidney Foundation, http://nkdep.nih.gov Basic Metabolic Gugnk1892-94-26 04:01:39* Test Item Value Reference Range Interpretation [...] called to leeann goodwin at 10/19/2019 04:01:32 VICE PRESIDENT OF NURSING by og. Read back and verified? yes [...] is not provided, and the patient is -[place], multiply by 1.212. If sex is not [...] is not provided, and the patient is -[place], multiply by 1.212. If sex is not [...] the National Kidney Foundation, http://nkdep.nih.gov Partial Thromboplastin Ezig2738-53-74 03:43:07* Test Item Value Reference Range Interpretation Comments Partial Thromboplastin Time (test code = Partial Throm boplastin Time) 76.20 seconds 24.39-37.25 H Delta check investig ated values correlate with patients condition,heparinResults called to and read back by: SEAN Sanchez 10/19/2019 03:43:01 VICE PRESIDENT OF NURSING CE Complete Blood Count with Spqrimvdtdvb7428-93-85 02:40:06* Test Item Value Reference Range Interpretation [...] code = IPF) 0 % N Automated Dsakcbxrtgxd6786-16-39 02:40:06* Test Item Value Reference Range Interpretation Comments Neutro Auto (test code = Neutro Auto) 64.1 % 36.0-70.0 Lymph Auto (test code = Lymph Auto) 23.8 % 12.0-44.0 Butler Auto (test code = Butler Auto) 6.8 % 0.0-11.0 Eos, Auto (test code = Eos, Auto) 4.3 % 0.0-7.0 Basophil Auto (test code = Basophil Auto) 0.7 % 0.0-2.0 Neutro Absolute (test code = Neutro Absolute) 4.4 x10 1.6-7.4 Lymph Absolute (test code = Lymph Absolute) 1.62 x10 .50-4.60 Butler Absolute (test code = Butler Absolute) .46 x10 .00-1.20 Eos Absolute (test code = Eos Absolute) 0.29 x10 0.00-0.74 Baso Absolute (test code = Baso Absolute) 0.05 x10 0.00-0.21 IG [id number] 02:40:06* Test Item Value Reference Range Interpretation Comments IG (test code = IG) 0.3 % 0.0-5.0 IG Abs (test code = IG Abs) 0 x10 N NM Lung Vent/Perf Lnqxuwk9787-81-81 00:36:25Patient: DAYO MCINTYRE Date/Time10/19/2019 00:28 CSTReason for Examr/o DVT;Chest painReportAFTER HOURS SERVICE ON: 10/19/2019 12:33 AMVentilation/Perfusion ScanLocation Code D88Odekndr: Chest pain;r/o DVTTechnique: Patient inhaled 22.0 mCI [...] for pulmonary embolism. Final Dictated by: MD Eduardo, Maisha TDictated DT/TM: 10/19/2019 0:33 amSigned by: MD Eduardo, Maisha TSigned (E lectronic Signature): 10/19/2019 0:36 amPOC [id number] 21:39:36* Test Item Value Reference Range Interpretation Comments Glucose POC (test code = Glucose POC) 330 mg/dL 70-115 H If you consider your patient critically ill, the Larry-Accu Check Infrom II meter should not be used for Glucose determination. Draw a venous Glucose and send to the main Lab for analysis. Troponin [id number] 18:56:37* Test Item Value Reference Range Interpretation Comments Troponin-T (test code = Troponin-T) 129.500 ng/L 0.000-14.000 Critical results called to Lurdes at 10/18/2019 18:56:18 VICE PRESIDENT OF NURSING by EO. Read back and verified? YESThe [...] support a diagnosis of chronic myocardial injury. Lower Ext Venous Duplex Pgjkymatn9605-49-04 18:54:39Patient: DAYO MCINTYRE Date/Time10/18/2019 18:49 CSTReason for Examr/o dvt;Extremity painReportEXAM: [...] BE_CTZSigned (Electronic Signature): 10/18/2019 6:54 pmComprehensive Metabolic [id number] 15:09:47* Test Item Value Reference Range Interpretation [...] is not provided, and the patient is -[place], multiply by 1.212. If sex is not [...] by the National Kidney Foundation, http://nkdep.nih.gov Creatine Vrefns7746-76-20 15:09:47* Test Item Value Reference Range Interpretation Comments CK (test code = CK) 65 U/L 26-192 Comprehensive Metabolic Pjqtu1702-76-87 15:09:47* Test Item Value Reference Range Interpretation [...] is not provided, and the patient is -[place], multiply by 1.212. If sex is not [...] National Kidney Foundation, http://nkdep.nih.gov Creatine Kinase MB ixdwruiy4690-34-03 15:09:47* Test Item Value Reference Range Interpretation Comments CKMB (test code = CKMB) 1.8 ng/mL 0.0-2.8 CKMB % (test code = CKMB %) 2.8 % 0.0-3.4 Pro B Natriuretic Lquopfn1277-17-53 15:09:47* Test Item Value Reference Range Interpretation Comments NT-proBNP (test code = NT-proBNP) 74227 pg/mL 0-124 H Troponin [id number] 15:09:47* Test Item Value Reference Range Interpretation Comments Troponin-T (test code = Troponin-T) 142.300 ng/L 0.000-14.000 Attempted to report critical trop to assigned nurse, charge nurse, and DrMaite No answer for assigned extension numbers. @ 1500 TAThe CV of the assay at 99th [...] diagnosis of chronic myocardial injury. Comprehensive Metabolic Qsbft5659-09-27 15:09:47* Test Item Value Reference Range Interpretation [...] is not provided, and the patient is -[place], multiply by 1.212. If sex is not [...] is not provided, and the patient is -[place], multiply by 1.212. If sex is not [...] National Kidney Foundation, http://nkdep.nih.gov Prothrombin Time and [id number] 14:40:53* Test Item Value Reference Range Interpretation Comments Prothrombin Time (test code = Prothrombin Time) 11.6 seconds 9.8-13 .4 INR (test code = INR) 1.0 ratio 0.6-1.2 Partial Thromboplastin Lwuf8242-15-94 14:40:53* Test Item Value Reference Range Interpretation Comments Partial Thromboplastin Time (test code = Partial Throm boplastin Time) 31.60 seconds 24.39-37.25 Complete Blood Count with Sfljhuqamoqg6255-19-38 14:11:10* Test Item Value Reference Range Interpretation [...] code = IPF) 0 % N Automated Ojbcasyovogg1022-53-17 14:11:10* Test Item Value Reference Range Interpretation Comments Neutro Auto (test code = Neutro Auto) 77.9 % 36.0-70.0 H Lymph Auto (test code = Lymph Auto) 12.9 % 12.0-44.0 Butler Auto (test code = Butler Auto) 5.7 % 0.0-11.0 Eos, Auto (test code = Eos, Auto) 2.6 % 0.0-7.0 Basophil Auto (test code = Basophil Auto) 0.5 % 0.0-2.0 Neutro Absolute (test code = Neutro Absolute) 6.2 x10 1.6-7.4 Lymph Absolute (test code = Lymph Absolute) 1.03 x10 .50-4.60 Butler Absolute (test code = Butler Absolute) .45 x10 .00-1.20 Eos Absolute (test code = Eos Absolute) 0.21 x10 0.00-0.74 Baso Absolute (test code = Baso Absolute) 0.04 x10 0.00-0.21 IG [id number] 14:11:10* Test Item Value Reference Range Interpretation Comments IG (test code = IG) 0.4 % 0.0-5.0 IG Abs (test code = IG Abs) 0 x10 N XR Chest 1 View [id number] 13:40:30Patient: DAYO MCINTYRE Date/Time10/18/2019 13:34 CSTReason for ExamChest painReportCHEST 1 [...] Adam FSigned (Electronic Signature): 10/18/2019 1:40 pmPOC [id number] 17:02:17* Test Item Value Reference Range Interpretation Comments Glucose POC (test code = Glucose POC) 338 mg/dL 70-115 H If you consider your patient critically ill, the Larry-Accu Check Infrom II meter should not be used for Glucose determination. Draw a venous Glucose and send to the main Lab for analysis. POC [id number] 07:53:49* Test Item Value Reference Range Interpretation Comments Glucose POC (test code = Glucose POC) 227 mg/dL 70-115 H If you consider your patient critically ill, the Larry-Accu Check Infrom II meter should not be used for Glucose determination. Draw a venous Glucose and send to the main Lab for analysis. POC Uzikdfa6756-23-21 20:30:47* Test Item Value Reference Range Interpretation Comments Glucose POC (test code = Glucose POC) 168 mg/dL 70-115 H If you consider your patient critically ill, the Larry-Accu Check Infrom II meter should not be used for Glucose determination. Draw a venous Glucose and send to the main Lab for analysis. Hepatitis B Surface Nmrxjem6002-30-93 19:04:36* Test Item Value Reference Range Interpretation Comments Hep Bs Ag (test code = Hep Bs Ag) Nonreactive Non Reactive POC [id number] 16:30:20* Test Item Value Reference Range Interpretation Comments Glucose POC (test code = Glucose POC) 201 mg/dL 70-115 H If you consider your patient critically ill, the Larry-Accu Check Infrom II meter should not be used for Glucose determination. Draw a venous Glucose and send to the main Lab for analysis. NM Myocardial SPECT Rest and Dxebta9740-05-63 16:23:34Patient: DAYO MCINTYRE Date/Time06/26/2019 12:00 CDTReason for ExamAbnormal EKGReportNUCLEAR MEDICINE [...] descri bed above. Final Dictated by: MD Iglesias S SatheeshaDictated DT/TM: 06/26/2019 4:19 pmSigned by: MD Iglesias S SatheeshaSigned (Electronic Signatur e): 06/26/2019 4:23 pmPOC [id number] 06:44:49* Test Item Value Reference Range Interpretation Comments Glucose POC (test code = Glucose POC) 188 mg/dL 70-115 H Notify RN or MDIf you consider your patient critically ill, the Larry-Accu Check Infrom II meter should not be used for Glucose determination. Draw a venous Glucose and send to the main Lab for analysis. POC [id number] 21:05:51* Test Item Value Reference Range Interpretation Comments Glucose POC (test code = Glucose POC) 260 mg/dL 70-115 H Notify RN or MDIf you consider your patient critically ill, the Larry-Accu Check Infrom II meter should not be used for Glucose determination. Draw a venous Glucose and send to the main Lab for analysis. POC Ufebfeu1051-58-05 16:07:45* Test Item Value Reference Range Interpretation Comments Glucose POC (test code = Glucose POC) 185 mg/dL 70-115 H If you consider your patient critically ill, the Larry-Accu Check Infrom II meter should not be used for Glucose determination. Draw a venous Glucose and send to the main Lab for analysis. POC Xspwprc7631-56-98 11:47:48* Test Item Value Reference Range Interpretation Comments Glucose POC (test code = Glucose POC) 218 mg/dL 70-115 H If you consider your patient critically ill, the Larry-Accu Check Infrom II meter should not be used for Glucose determination. Draw a venous Glucose and send to the main Lab for analysis. Pro B Natriuretic Xpruwfi5945-32-68 09:31:58* Test Item Value Reference Range Interpretation Comments NT-proBNP (test code = NT-proBNP) 41487 pg/mL 0-124 H POC Jlmrvfr7244-23-19 07:25:48* Test Item Value Reference Range Interpretation Comments Glucose POC (test code = Glucose POC) 207 mg/dL 70-115 H If you consider your patient critically ill, the Larry-Accu Check Infrom II meter should not be used for Glucose determination. Draw a venous Glucose and send to the main Lab for analysis. Thyroid Stimulating Peggohd6940-63-31 04:42:22* Test Item Value Reference Range Interpretation Comments TSH (test code = TSH) 4.100 mIU/mL 0.270-4.200 Lipid Razwx2409-12-59 04:36:02* Test Item Value Reference Range Interpretation Comments Cholesterol Total (test code = Cholesterol Total) 148 mg/dL 0-20 0 RISK OF HEART DISEASEPublished by [place] [employer] Analyte Optimal Borderline Increased RiskCHOL [...] calculation is LDL/HDL Ratio=LDL Calc/HDL Chol Magnesium Ikojj2893-46-81 04:36:02* Test Item Value Reference Range Interpretation Comments Magnesium Level (test code = Magnesium Level) 2.4 mg/dL 1.7-2.5 Lipid [id number] 04:36:02* Test Item Value Reference Range Interpretation Comments Cholesterol Total (test code = Cholesterol Total) 148 mg/dL 0-20 0 RISK OF HEART DISEASEPublished by [place] [employer] Analyte Optimal Borderline Increased RiskCHOL [...] calculation is LDL/HDL Ratio=LDL Calc/HDL Chol Lipid [id number] 04:36:02* Test Item Value Reference Range Interpretation Comments Cholesterol Total (test code = Cholesterol Total) 148 mg/dL 0-20 0 RISK OF HEART DISEASEPublished by [place] [employer] Analyte Optimal Borderline Increased RiskCHOL [...] is LDL/HDL Ratio=LDL Calc/HDL Chol Comprehensive Metabolic Romyp4389-78-66 04:36:01* Test Item Value Reference Range Interpretation [...] A/G Ratio) 1.7 ratio N Comprehensive Metabolic Lkknx7260-17-37 04:36:01* Test Item Value Reference Range Interpretation [...] is not provided, and the patient is -[place], multiply by 1.212. If sex is not [...] the National Kidney Foundation, http://nkdep.nih.gov Comprehensive Metabolic Ncjgu1518-32-46 04:36:01* Test Item Value Reference Range Interpretation [...] is not provided, and the patient is -[place], multiply by 1.212. If sex is not [...] is not provided, and the patient is -[place], multiply by 1.212. If sex is not [...] the National Kidney Foundation, http://nkdep.nih.gov Comprehensive Metabolic Udwdw9597-79-80 04:36:01* Test Item Value Reference Range Interpretation [...] is not provided, and the patient is -[place], multiply by 1.212. If sex is not [...] is not provided, and the patient is -[place], multiply by 1.212. If sex is not [...] the National Kidney Foundation, http://nkdep.nih.gov Comprehensive Metabolic Nxquq9256-42-95 04:36:01* Test Item Value Reference Range Interpretation [...] is not provided, and the patient is -[place], multiply by 1.212. If sex is not [...] is not provided, and the patient is -[place], multiply by 1.212. If sex is not [...] by the National Kidney Foundation, http://nkdep.nih.gov Creatine Qgfryb2330-01-59 04:34:26* Test Item Value Reference Range Interpretation Comments CK (test code = CK) 44 U/L 26-192 Creatine Exkliu3969-88-64 04:34:26* Test Item Value Reference Range Interpretation Comments CK (test code = CK) 44 U/L 39-308 Referenc e range changed due to change in patient's sex at 13:35:26. Normal Low changed from 26 to 39. Normal High changed from 192 to 308. Result flag not changed. Creatine Uiejyy6616-67-32 04:34:26* Test Item Value Reference Range Interpretation [...] Result flag not changed. Creatine Kinase MB gfjjlfbc7288-09-57 04:32:51* Test Item Value Reference Range Interpretation Comments CKMB (test code = CKMB) 1.5 ng/mL 0.0-2.8 Creatine Kinase MB psqbpcda7493-49-46 04:32:51* Test Item Value Reference Range Interpretation Comments CKMB (test code = CKMB) 1.5 ng/mL 0.0-2.8 CKMB % (test code = CKMB %) 3.4 % 0.0-3.4 Creatine Kinase MB czdogujr4626-90-64 04:32:51* Test Item Value Reference Range Interpretation Comments CKMB (test code = CKMB) 1.5 ng/mL 0.0-4.9 Refe rence range changed due to change in patient's sex at 13:35:26. Normal High changed from 2.8 to 4.9. Result flag not changed. CKMB % (test code = CKMB %) 3.4 % 0.0-3.4 Creatine Kinase MB gyfeyajf1032-03-28 04:32:51* Test Item Value Reference Range Interpretation [...] = CKMB %) 3.4 % 0.0-3.4 Hemoglobin [id number] 04:11:56* Test Item Value Reference Range Interpretation Comments Hemoglobin A1c (test code = Hemoglobin A1c) 8.1 % 4.8-5.9 H Non Diabetic 4.8- 5.9%Diabetic <7.0% Complete Blood Count without Ibzj6648-22-17 04:05:36* Test Item Value Reference Range Interpretation [...] 0 % N Complete Blood Count without Nsaq4613-46-88 04:05:36* Test Item Value Reference Range Interpretation [...] 0 % N Complete Blood Count without Qwdp3870-05-96 04:05:36* Test Item Value Reference Range Interpretation [...] code = IPF) 0 % N Troponin [id number] 01:28:22* Test Item Value Reference Range Interpretation [...] RS_. Read back and verified? _yes Troponin [id number] 01:28:22* Test Item Value Reference Range Interpretation [...] of the assay at 99th percentile for [facility] male and female patient population [...] a diagnosis of chronic myocardial injury. Troponin [id number] 01:28:22* Test Item Value Reference Range Interpretation [...] a diagnosis of chronic myocardial injury. POC Jfmmqpi2918-54-21 00:40:44* Test Item Value Reference Range Interpretation Comments Glucose POC (test code = Glucose POC) 342 mg/dL 70-115 H Notify RN or MDIf you consider your patient critically ill, the Larry-Accu Check Infrom II meter should not be used for Glucose determination. Draw a venous Glucose and send to the main Lab for analysis. Troponin [id number] 22:19:18* Test Item Value Reference Range Interpretation [...] _RS. Read back and verified? _yes Troponin [id number] 22:19:18* Test Item Value Reference Range Interpretation [...] a diagnosis of chronic myocardial injury. Troponin [id number] 22:19:18* Test Item Value Reference Range Interpretation [...] diagnosis of chronic myocardial injury. Comprehensive Metabolic Wrctn3013-93-55 19:59:38* Test Item Value Reference Range Interpretation [...] is not provided, and the patient is -[place], multiply by 1.212. If sex is not [...] the National Kidney Foundation, http://nkdep.nih.gov Comprehensive Metabolic Pkdzr0593-52-25 19:59:38* Test Item Value Reference Range Interpretation [...] is not provided, and the patient is -[place], multiply by 1.212. If sex is not [...] by the National Kidney Foundation, http://nkdep.nih.gov Creatine Iwmqfd9560-79-89 19:59:38* Test Item Value Reference Range Interpretation Comments CK (test code = CK) 60 U/L 26-192 Creatine Kinase MB sdrxakbw9987-05-71 19:59:38* Test Item Value Reference Range Interpretation Comments CKMB (test code = CKMB) 2.0 ng/mL 0.0-2.8 CKMB % (test code = CKMB %) 3.3 % 0.0-3.4 Pro B Natriuretic Ublwfxm0568-44-30 19:59:38* Test Item Value Reference Range Interpretation Comments NT-proBNP (test code = NT-proBNP) >58397 pg/mL 0-124 H Comprehensive Metabolic Ltyvd2380-41-01 19:59:38* Test Item Value Reference Range Interpretation [...] is not provided, and the patient is -[place], multiply by 1.212. If sex is not [...] is not provided, and the patient is -[place], multiply by 1.212. If sex is not [...] by the National Kidney Foundation, http://nkdep.nih.gov Troponin [id number] 19:59:38* Test Item Value Reference Range Interpretation [...] Read back and verified? YES Comprehensive Metabolic [id number] 19:59:38* Test Item Value Reference Range Interpretation [...] is not provided, and the patient is -[place], multiply by 1.212. If sex is not [...] is not provided, and the patient is -[place], multiply by 1.212. If sex is not [...] by the National Kidney Foundation, http://nkdep.nih.gov Creatine Swadgc2341-66-57 19:59:38* Test Item Value Reference Range Interpretation Comments CK (test code = CK) 60 U/L 39-308 Referenc e range changed due to change in patient's sex at 13:35:29. Normal Low changed from 26 to 39. Normal High changed from 192 to 308. Result flag not changed. Creatine Kinase MB fmgyyafl0565-09-32 19:59:38* Test Item Value Reference Range Interpretation Comments CKMB (test code = CKMB) 2.0 ng/mL 0.0-4.9 Refe rence range changed due to change in patient's sex at 13:35:29. Normal High changed from 2.8 to 4.9. Result flag not changed. CKMB % (test code = CKMB %) 3.3 % 0.0-3.4 Troponin [id number] 19:59:38* Test Item Value Reference Range Interpretation [...] diagnosis of chronic myocardial injury. Comprehensive Metabolic [id number] 19:59:38* Test Item Value Reference Range Interpretation [...] is not provided, and the patient is -[place], multiply by 1.212. If sex is not [...] is not provided, and the patient is -[place], multiply by 1.212. If sex is not [...] by the National Kidney Foundation, http://nkdep.nih.gov Creatine Cokhhe8506-94-16 19:59:38* Test Item Value Reference Range Interpretation [...] Result flag not changed. Creatine Kinase MB qxsqiobk0670-96-82 19:59:38* Test Item Value Reference Range Interpretation [...] = CKMB %) 3.3 % 0.0-3.4 Troponin [id number] 19:59:38* Test Item Value Reference Range Interpretation [...] < 10%. A rise and fall in GILILAN with at least one value above the 99th percentile with clinical evidence of myocardial ischemia would support a diagnosis of AMI. A delta of at least 20% is recommended to assess acute changes in results above the 99th percentile in serial measurements. Stable GILLIAN levels (<20%) delta above the 99th percentile URL would support a diagnosis of chronic myocardial injury. Prothrombin Time and [id number] 19:24:48* Test Item Value Reference Range Interpretation Comments Prothrombin Time (test code = Prothrombin Time) 11.2 seconds 9.8-13 .4 INR (test code = INR) 1.0 ratio 0.6-1.2 Partial Thromboplastin [id number] 19:24:48* Test Item Value Reference Range Interpretation Comments Partial Thromboplastin Time (test code = Partial Throm boplastin Time) 32.40 seconds 24.39-37.25 Automated Ioyrjmysihpm8216-53-51 19:13:40* Test Item Value Reference Range Interpretation Comments Neutro Auto (test code = Neutro Auto) 72.3 % 36.0-70.0 H Lymph Auto (test code = Lymph Auto) 17.1 % 12.0-44.0 Butler Auto (test code = Butler Auto) 6.5 % 0.0-11.0 Eos, Auto (test code = Eos, Auto) 3.1 % 0.0-7.0 Basophil Auto (test code = Basophil Auto) 0.5 % 0.0-2.0 Neutro Absolute (test code = Neutro Absolute) 5.4 x10 1.6-7.4 Lymph Absolute (test code = Lymph Absolute) 1.28 x10 .50-4.60 Butler Absolute (test code = Butler Absolute) .49 x10 .00-1.20 Eos Absolute (test code = Eos Absolute) 0.23 x10 0.00-0.74 Baso Absolute (test code = Baso Absolute) 0.04 x10 0.00-0.21 IG [id number] 19:13:40* Test Item Value Reference Range Interpretation Comments IG (test code = IG) 0.5 % 0.0-5.0 IG Abs (test code = IG Abs) 0 x10 N Complete Blood Count with Syrogwhshqdc5781-29-99 19:13:39* Test Item Value Reference Range Interpretation [...] 0 % N Complete Blood Count with Fdcqbcjqjzfj4984-60-88 19:13:39* Test Item Value Reference Range Interpretation [...] 0 % N Complete Blood Count with Scpbbceoshux5136-25-03 19:13:39* Test Item Value Reference Range Interpretation [...] 0 % N XR Chest 1 View Hpihoow7547-06-23 19:07:54Patient: DAYO MCINTYRE Date/Time06/24/2019 18:44 CDTReason for ExamChest painReportEXAM: Portable chest one view.Location code: T3Tsrweat: Chest painCOMPARISON: None available.COMMENT: AP portableview of [...] (Electronic Signature): 06/24/2019 7:07 pm- US ABDOMEN [id number] 03:46:00 Name: DAYO MCINTYRE [facility] : 1965 Age/S: 53 / F [address] [facility] Unit #: [id number] Loc: [place] [address] Phys: Vilma Villarreal MD Acct: [id number] Dis Date: Status: REG ER PHONE #: [phone] Exam Date: 05/09/2019 0324 FAX #: [phone] Reason: abd duran EXAMS: CPT CODE: [id number] ABDOMEN LTD [id number] DICTATION LOCATION: H48 HISTORY: Female, 53 years [...] MD; Mike Forbes Technologist: LEESA DAWN RDMS Trnnyb Date/Time: 05/09/2019 (034) t.SDR.CLW Orig Print D/T: S: 05/09/2019 (0349) Probe: PAGE 1 Signed Report - CT ABD PELVIS W/[id number] 02:33:00 Name: [facility] [facility] : 1965 Age/S: 53 / F [address] [facility] Unit #: [id number] Loc: [place] [address] Phys: Vilma Villarreal MD Acct: [id number] Dis Date: Status: REG ER PHONE #: [phone] Exam Date: 05/09/2019 0155 FAX #: [phone] Reason: flank/rlq pain EXAMS: CPT CODE: [id number] CT ABD PELVIS W/CONT 99406 CT abdomen and pelvis with IV contrast. [...] PAGE 1 Signed Report (CONTINUED) [facility] 1965 Age/S: 53 / F [address] Unit #: [id number] Loc: [place] [address] Phys: Vilma Villarreal MD Acct: [id number] Dis Date: Status: REG ER PHONE #: [phone] Exam Date: 05/09/2019 0155 FAX #: [phone] Reason: flank/rlq pain EXAMS: CPT CODE: [id number] CT ABD PELVIS W/CONT 45305 < Continued> at 0233 Reported and signed by: Meagan Larson M.D. CC: Vilma Villarreal MD; Mike Forbes Technologist:ANNA BRAND CTDI: DLP: Trnscb Date/Time: 05/09/2019 (023) t.CAROLYNER.SR31 Orig Print D/T: S: 05/09/2019 (0236) PAGE 2 Signed Report BASIC METABOLIC [id number] 00:01:00* Test Item Value Reference Range Interpretation [...] CA) 8.4 mg/dL 8.5-10.1 L HEPATIC FUNCTION [id number] 00:01:00* Test Item Value Reference Range Interpretation [...] reference range due to change in reagent. [id number] 00:01:00* Test Item Value Reference Range Interpretation Comments LIPASE (test code = LIP) 62 U/L 73.0-393.0 L HCG SERUM [id number] 00:01:00* Test Item Value Reference Range Interpretation Comments HCG SERUM QUAL (test code = HCGQL) NEGATIVE NEGATIVE This HCGQL test is NOT applicable for MALE patients.Check with nurse about probable order error.If Tumor Marker Test needed, nurse should order test "HCGTU"(Test #550.59164) [id number] 00:01:00* Test Item Value Reference Range Interpretation Comments TROPONIN-I (test code = TROPI) <0.015 ng/mL 0-0.045 N BASIC METABOLIC [id number] 23:25:00* Test Item Value Reference Range Interpretation [...] code = CA) mg/dL 8.5-10.1 HEPATIC FUNCTION [id number] 23:25:00* Test Item Value Reference Range Interpretation [...] TOTAL (test code = ALKP) IUnit/L 45-117 [id number] 23:25:00* Test Item Value Reference Range Interpretation Comments LIPASE (test code = LIP) U/L 73.0-393.0 HCG SERUM [id number] 23:25:00* Test Item Value Reference Range Interpretation Comments HCG SERUM QUAL (test code = HCGQL) NEGATIVE NEGATIVE This HCGQL test is NOT applicable for MALE patients.Check with nurse about probable order error.If Tumor Marker Test needed, nurse should order test "HCGTU"(Test #550.75400) [id number] 23:25:00* Test Item Value Reference Range Interpretation Comments TROPONIN-I (test code = TROPI) ng/mL 0-0.045 PROTHROMBIN [id number] 22:47:00* Test Item Value Reference Range Interpretation [...] (2.5-3.5) IS PATIENT ON ANTICOAGULANTS? NTHROMBOPLASTIN TIME [id number] 22:47:00* Test Item Value Reference Range Interpretation Comments THROMBOPLASTIN TIME PARTIAL (test code = PTT) 31.7 seconds 25.0-36. 5 N IS PATIENT ON ANTICOAGULANTS? NCBC W/O [id number] 22:37:00* Test Item Value Reference Range Interpretation [...] fL 6.7-11.0 N - XR CHEST 1 [id number] 22:25:00 FAX: Vilma Villarreal MD [phone] [place]: St: REG FAX: Mike Orozco [phone] Name: DAYO MCINTYRE [facility] : 1965 Age/S: 53/F [address] [facility] Unit #: [id number] Loc: [place] [address] Phys: Vilma Villarreal MD Acct: [id number] Dis Date: Status: REG ER PHONE #: [phone] Exam Date: 05/08/20192209 FAX #: [phone] Reason: Abdominal Pain EXAMS: CPT CODE: [id number] XR CHEST 1 V 11796 REASON FOR EXAM: Abdominal Pain Exam Order Date: 05/08/2019 9:42 PM Ordering MKimmy: Vilma Villarreal MD PROCEDURE: - XR CHEST [...] are unchanged from the previous study. at 2559 Reported and signed by: Jairon Biswas MD CC: Vilma Villarreal MD; Mike Forbes Technologist: MARCELO MELENDEZ; RT Galo(R Trnscrd Date/Time/By: 05/08/2019 (4470) : By: [email or web address] Orig Print D/T: S: 05/08/2019 (8243) PAGE 1 Signed Report [id number] 20:25:00* Test Item Value Reference Range Interpretation Comments GLUBED (test code = GLUBED) 276 mg/dL 74-106 H Performed by certified welding operator at [facility] [id number] 18:02:00* Test Item Value Reference Range Interpretation Comments GLUBED (test code = GLUBED) 242 mg/dL 74-106 H Performed by certified welding operator at [facility] [id number] 11:59:00* Test Item Value Reference Range Interpretation Comments GLUBED (test code = GLUBED) 254 mg/dL 74-106 H Performed by certified welding operator at [facility] CBC W/AUTO [id number] 07:45:00* Test Item Value Reference Range Interpretation [...] (test code = MDIFF) NO BASIC METABOLIC [id number] 07:44:00* Test Item Value Reference Range Interpretation [...] code = CA) 9.0 mg/dL 8.5-10.1 N [id number] 07:44:00* Test Item Value Reference Range Interpretation Comments PHOSPHORUS (test code = PHOS) 6.3 mg/dL 2.5-4.9 H [id number] 07:44:00* Test Item Value Reference Range Interpretation Comments MAGNESIUM (test code = MAG) 2.8 mg/dL 1.8-2.4 H [id number] 07:35:00* Test Item Value Reference Range Interpretation Comments GLUBED (test code = GLUBED) 190 mg/dL 74-106 H Performed by certified welding operator at [facility] [id number] 20:29:00* Test Item Value Reference Range Interpretation Comments GLUBED (test code = GLUBED) 171 mg/dL 74-106 H Performed by certified welding operator at [facility] [id number] 16:27:00* Test Item Value Reference Range Interpretation Comments GLUBED (test code = GLUBED) 213 mg/dL 74-106 H Performed by certified welding operator at [facility] - MRI L-SPINE W/O [id number] 13:20:00 FAX: Jatinder Deras MD [place]: B St: ADM FAX: Hailee Chase NP [phone] FAX: Mike Orozco [phone] Name: DAYO MCINTYRE [facility] : 1965 Age/S: 53/F [address] Unit #: [id number] Loc: V.[address] [place] [address] Phys: Hailee Chase NP Acct: [id number] Dis Date: Status: ADM IN ONE #: [phone] Exam Date: 04/20/2019 1052 FAX #: [phone] Reason: BACK PAIN EXAMS: CPT CODE: [id number] MR I L-SPINE W/O CONT 79067 EXAM: MRI of t he lumbar spine [...] Technologist: Dana Maldonado)(MR) Trnscrd Date/Time/By: 04/20/20 19 (1280) : By: YarielW Orig Print D/T: S: 04/20/2019 (9766) PAGE 1 Signed Report [id number] 11:53:00* Test Item Value Reference Range Interpretation Comments GLUBED (test code = GLUBED) 256 mg/dL 74-106 H Performed by certified welding operator at [facility] [id number] 08:58:00* Test Item Value Reference Range Interpretation Comments GLUBED (test code = GLUBED) 179 mg/dL 74-106 H Performed by certified welding operator at [facility] BASIC METABOLIC [id number] 08:06:00* Test Item Value Reference Range Interpretation [...] STICK CS 0347 [place] IS AWARE V.LAB.1 071900WFOUD METABOLIC [id number] 08:00:00* Test Item Value Reference Range Interpretation [...] STICK CS 0347 [place] [employer]WARE V.LAB.1 [id number] 20:27:00* Test Item Value Reference Range Interpretation Comments GLUBED (test code = GLUBED) 173 mg/dL 74-106 H Performed by certified welding operator at [facility] [id number] 16:37:00* Test Item Value Reference Range Interpretation Comments GLUBED (test code = GLUBED) 321 mg/dL 74-106 H Performed by certified welding operator at [facility] [id number] 07:44:00* Test Item Value Reference Range Interpretation Comments GLUBED (test code = GLUBED) 164 mg/dL 74-106 H Performed by certified welding operator at [facility] BASIC METABOLIC [id number] 05:33:00* Test Item Value Reference Range Interpretation [...] code = CA) 9.0 mg/dL 8.5-10.1 N [id number] 05:33:00* Test Item Value Reference Range Interpretation Comments PHOSPHORUS (test code = PHOS) 6.1 mg/dL 2.5-4.9 H [id number] 05:33:00* Test Item Value Reference Range Interpretation Comments MAGNESIUM (test code = MAG) 2.9 mg/dL 1.8-2.4 H CBC W/O [id number] 05:11:00* Test Item Value Reference Range Interpretation [...] code = MPV) 9.7 fL 6.7-11.0 N [id number] 20:07:00* Test Item Value Reference Range Interpretation Comments GLUBED (test code = GLUBED) 125 mg/dL 74-106 H Performed by certified welding operator at [facility] [id number] 16:13:00* Test Item Value Reference Range Interpretation Comments GLUBED (test code = GLUBED) 221 mg/dL 74-106 H Performed by certified welding operator at [facility] [id number] 11:26:00* Test Item Value Reference Range Interpretation Comments GLUBED (test code = GLUBED) 148 mg/dL 74-106 H Performed by certified welding operator at [facility] BASIC METABOLIC [id number] 08:56:00* Test Item Value Reference Range Interpretation [...] code = CA) 9.3 mg/dL 8.5-10.1 N [id number] 07:37:00* Test Item Value Reference Range Interpretation Comments GLUBED (test code = GLUBED) 214 mg/dL 74-106 H Performed by certified welding operator at [facility] [id number] 20:14:00* Test Item Value Reference Range Interpretation Comments GLUBED (test code = GLUBED) 129 mg/dL 74-106 H Performed by certified welding operator at [facility] [id number] 16:50:00* Test Item Value Reference Range Interpretation Comments GLUBED (test code = GLUBED) 255 mg/dL 74-106 H Performed by certified welding operator at [facility] [id number] 07:51:00* Test Item Value Reference Range Interpretation Comments GLUBED (test code = GLUBED) 88 mg/dL 74-106 N Performed by certified welding operator at [facility] [id number] 07:22:00* Test Item Value Reference Range Interpretation Comments GLYCOSYLATED HEMOGLOBIN (HA1C) (test code = GLYHGB) 8.2 % HbA1 4. 8-6.0 H ESTIMATED AVERAGE GLUCOSE (test code = EAG) 189 MG/DL COMPREHENSIVE METABOLIC [id number] 05:57:00* Test Item Value Reference Range Interpretation [...] This LDL result is a direct measurement.========= JJMSEFNBPV0557-69-53 05:57:00* Test Item Value Reference Range Interpretation Comments PHOSPHORUS (test code = PHOS) 8.3 mg/dL 2.5-4.9 H [id number] 05:57:00* Test Item Value Reference Range Interpretation Comments AMYLASE (test code = CASTRO) 24 Unit/L 25-115 L [id number] 05:57:00* Test Item Value Reference Range Interpretation Comments MAGNESIUM (test code = MAG) 2.8 mg/dL 1.8-2.4 H THYROID PROFILE [id number] 05:57:00* Test Item Value Reference Range Interpretation [...] HYPER : < 0.35 mIU/mL COMPREHENSIVE METABOLIC [id number] 05:37:00* Test Item Value Reference Range Interpretation [...] LDL (test code = LDL) mg/dL 100-129 [id number] 05:37:00* Test Item Value Reference Range Interpretation Comments PHOSPHORUS (test code = PHOS) mg/dL 2.5-4.9 [id number] 05:37:00* Test Item Value Reference Range Interpretation Comments AMYLASE (test code = CASTRO) Unit/L 25-115 PNPFZBBCA5426-12-21 05:37:00* Test Item Value Reference Range Interpretation Comments MAGNESIUM (test code = MAG) mg/dL 1.8-2.4 THYROID PROFILE [id number] 05:37:00* Test Item Value Reference Range Interpretation Comments T3 UPTAKE (test code = T3UP) % 30.0-40.0 T4 (THYROXINE) (test code = T4) ug/dL 4.5-13.9 T7 (FREE THYROXINE INDEX) (test code = T7) FTI 1.3-5.1 THYROID STIMULATING HORMONE (test code = TSH) uIU/mL 0.36-3.7 4 AB HELICOBACTER [id number] 05:19:00* Test Item Value Reference Range Interpretation Comments AB HELICOBACTER IGG (test code = HELIGAB) NEGATIVE NEGATIVE CBC W/O [id number] 05:10:00* Test Item Value Reference Range Interpretation [...] code = MPV) 9.8 fL 6.7-11.0 N [id number] 03:15:00* Test Item Value Reference Range Interpretation Comments TROPONIN-I (test code = TROPI) <0.015 ng/mL 0-0.045 N 04/16/19 1246PATIENT REFUSED SEAN LEES NOTIFIED V.LAB.SHARA 612645CHILTUAV T O COMMISSARY CLERK: COLLECT 3 HOURS AFTER PREVIOUS SAMPLE [id number] 23:37:00* Test Item Value Reference Range Interpretation Comments TROPONIN-I (test code = TROPI) <0.015 ng/mL 0-0.045 N 04/16/19 1245PATIENT REFUSED SEAN GUZMÁN NOTIFIED V.LAB.SHARA [id number] TO COMMISSARY CLERK: COLLECT 3 HOURS AFTER PREVIOUS SAMPLE [id number] 20:39:00* Test Item Value Reference Range Interpretation Comments GLUBED (test code = GLUBED) 223 mg/dL 74-106 H Performed by certified welding operator at [facility] AG HEPAT B [id number] 17:26:00* Test Item Value Reference Range Interpretation Comments AG HEPAT B SURF (test code = HBSAG) Nonreactive Index Nonreactive [id number] 16:59:00* Test Item Value Reference Range Interpretation Comments GLUBED (test code = GLUBED) 326 mg/dL 74-106 H Performed by certified welding operator at [facility] [id number] 12:13:00* Test Item Value Reference Range Interpretation Comments GLUBED (test code = GLUBED) 353 mg/dL 74-106 H Performed by certified welding operator at [facility] [id number] 07:52:00* Test Item Value Reference Range Interpretation Comments GLUBED (test code = GLUBED) 283 mg/dL 74-106 H Performed by certified welding operator at [facility] - CT ABD PELVIS W/O [id number] 18:07:00 Name: DAOY MCINTYRE [facility] : 1965 Age/S: 53 / F [address] [facility] Unit #: [id number] Loc: [place] [address] Phys: Mariajose Vazquez MD Acct: [id number] Dis Date: Status: REG ER PHONE #: [phone] Exam Date: 04/15/2019 1737 FAX #: [phone] Reason: R flank pain EXAMS: CPT CODE: [id number] CT ABD PELVIS W/O CONT 12216 HISTORY: Right flank pain. COMPARISON: January 18, [...] PAGE 1 Signed Report (CONTINUED) Name: DAYO MCINTYRE [facility] : 1965 Age/S: 53 / F [address] Unit #: [id number] Loc: [place] [address] Phys: Mariajose Vazquez MD Acct: [id number] Dis Date: Status: REG ER PHONE #: [phone] Exam Date: 04/15/2019 1737 FAX #: [phone] Reason: R flank pain EXAMS: CPT CODE: [id number] ABD PELVIS W/O CONT 81931 <Continued> at 1807 Reported and signed by: Kristofer Summers M.D. CC: Mariajose Vazquez MD; Mike Forbes echnologist:Tita Matias RT(R),CT; CTDI: DLP: Trnscb Date /Time: 04/15/2019 (1806) t.SDR.TH4 Orig Print D/T: S: (1809) PAGE 2 Signed Report COMPREHENSIVE METABOLIC [id number] 17:34:00* Test Item Value Reference Range Interpretation [...] reference range due to change in reagent. [id number] 17:34:00* Test Item Value Reference Range Interpretation Comments LIPASE (test code = LIP) 44 U/L 73.0-393.0 L [id number] 17:34:00* Test Item Value Reference Range Interpretation Comments TROPONIN-I (test code = TROPI) <0.015 ng/mL 0-0.045 N [id number] 17:34:00* Test Item Value Reference Range Interpretation Comments CKMB (test code = CKMBT) 1.5 ng/mL 0-6.0 N COMPREHENSIVE METABOLIC [id number] 17:19:00* Test Item Value Reference Range Interpretation [...] TOTAL (test code = ALKP) IUnit/L 45-117 [id number] 17:19:00* Test Item Value Reference Range Interpretation Comments LIPASE (test code = LIP) U/L 73.0-393.0 [id number] 17:19:00* Test Item Value Reference Range Interpretation Comments TROPONIN-I (test code = TROPI) ng/mL 0-0.045 URINALYSIS [id number] 17:18:00* Test Item Value Reference Range Interpretation [...] per HPF Few Urine Source? Clean CatchURINALYSIS [id number] 17:17:00* Test Item Value Reference Range Interpretation [...] HPF NONE Urine Source? Clean CatchCBC W/AUTO [id number] 17:05:00* Test Item Value Reference Range Interpretation [...] K/mm3 0.0-0.1 N - XR CHEST 2 [id number] 17:05:00 FAX: Mariajose Goode [phone] [place]: St: REG FAX: Mike Orozco [phone] Name: DAYO MCINTYRE [facility] : 1965 Age/S: 53/F [address] [facility] Unit #: [id number] Loc: [place] [address] Phys: Mariajose Vazquez MD Acct: [id number] Dis Date: Status: REG ER PHONE #: [phone] Exam Date: 04/15/2019 1650 FAX #: [phone] Reason: flank pain EXAMS: CPT CODE: [id number] XR CHEST 2 V 10544 HISTORY: Flank pain. COMPARISON: January 19, 2018. AP and lateral view of the chest: No acute infiltrates, effusion or congestion. Suboptimal inspiration. Cardiac silhouette is within normal limits. 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 IMPRESSION: No acute infiltrates, effusion or congestion. at 0553 Reported and signed by: Kristofer Summers M.D. CC: Mariajose Vazquez MD; Mike Forbes Technologist: RT SHELLY(She) Trnscrd Date/Time/By: 04/15/2019 (3561) : By: [email or web address] Orig Print D/T: S: 04/15/2019 (2308) PAGE 1 Signed Report Throat Culture Strep [id number] 08:04:31No Group A Strep at 24 hours. No Group A Strep at 48 hours.CT Abdomen and Pelvis w/o Contrast 2019-04-07 13:46:40Patient: DAYO MCINTYRE Date/Time04/07/2019 13:13 CDTReason for Exampain on R [...] use of iterative reconstruction technique.COMPARISON: None availableLOCATION: [id number]:There is a trace left pleural effusion with [...] 1:46 pmStreptococcus A Screen Rapid w/ Reflex [id number] 13:21:29* Test Item Value Reference Range Interpretation Comments Strep A Scn (test code = Strep A Scn) Negative Negative Lot # (test code = Lot #) [id number] N Expiration Dt (test code = Expiration Dt) 01/28/2020 N Neg Control (test code = Neg Control) Not Performed Pos Control (test code = Pos Control) Not Performed Internal QC (test code = Internal QC) Acceptable Comprehensive Metabolic [id number] 13:14:34* Test Item Value Reference Range Interpretation [...] = A/G Ratio) 1.3 ratio N Lipase Pkpvr1935-16-88 13:14:34* Test Item Value Reference Range Interpretation Comments Lipase Level (test code = Lipase Level) 8 U/L 13-60 L Comprehensive Metabolic Zkcun8617-24-60 13:14:34* Test Item Value Reference Range Interpretation [...] is not provided, and the patient is -[place], multiply by 1.212. If sex is not [...] the National Kidney Foundation, http://nkdep.nih.gov Comprehensive Metabolic Scwny0705-80-45 13:14:34* Test Item Value Reference Range Interpretation [...] is not provided, and the patient is -[place], multiply by 1.212. If sex is not [...] is not provided, and the patient is -[place], multiply by 1.212. If sex is not [...] the National Kid[employer] Foundation, http://nkdep.nih.gov Comprehensive Metabolic Jpaxf6473-77-65 13:14:34* Test Item Value Reference Range Interpretation [...] is not provided, and the patient is -[place], multiply by 1.212. If sex is not [...] is not provided, and the patient is -[place], multiply by 1.212. If sex is not [...] the National Kid[employer] Foundation, http://nkdep.nih.gov Comprehensive Metabolic Nifam1986-67-32 13:14:34* Test Item Value Reference Range Interpretation [...] is not provided, and the patient is -[place], multiply by 1.212. If sex is not [...] is not provided, and the patient is -[place], multiply by 1.212. If sex is not [...] by the National [employer] Foundation, http://nkdep.nih.gov Automated Ysmiygnmjejr9033-24-36 12:58:43* Test Item Value Reference Range Interpretation Comments Neutro Auto (test code = Neutro Auto) 80.5 % 36.0-70.0 H Lymph Auto (test code = Lymph Auto) 10.6 % 12.0-44.0 L Butler Auto (test code = Butler Auto) 5.8 % 0.0-11.0 Eos, Auto (test code = Eos, Auto) 2.1 % 0.0-7.0 Basophil Auto (test code = Basophil Auto) 0.6 % 0.0-2.0 Neutro Absolute (test code = Neutro Absolute) 7.2 x10 1.6-7.4 Lymph Absolute (test code = Lymph Absolute) .94 x10 .50-4.60 Butler Absolute (test code = Butler Absolute) .52 x10 .00-1.20 Eos Absolute (test code = Eos Absolute) 0.19 x10 0.00-0.74 Baso Absolute (test code = Baso Absolute) 0.05 x10 0.00-0.21 IG Anxpa4049-23-20 12:58:43* Test Item Value Reference Range Interpretation Comments IG (test code = IG) 0.4 % 0.0-5.0 IG Abs (test code = IG Abs) 0 x10 N Complete Blood Count with Cxfghmxcplkl9220-48-82 12:58:42* Test Item Value Reference Range Interpretation [...] 0 % N Complete Blood Count with Kyngdpbimkas9665-99-99 12:58:42* Test Item Value Reference Range Interpretation [...] 0 % N Complete Blood Count with Fbckhzdbvrvv4665-90-11 12:58:42* Test Item Value Reference Range Interpretation [...] IPF) 0 % N US Breast Complete Tthmy5727-88-37 10:44:50Patient: DAYO MCINTYRE Date/Time03/30/2019 09:48 CDTReason for ExamO92.6ReportLocation R 16- [...] on ultrasound for stability.RECOMMENDATIONS: 6 MONTH FOLLOW-UP [facility] BREAST ULTRASOUND AND MAMMOGRAM.Exam Date/Time03/30/2019 09:48 CDTReportBI-RA DS Category 3: Probably benign Final Dictated by: MD Abbi, Jacki FDictated DT/TM: 03/30/2019 9:50 amSigned by: MD Go E niola FSigned (Electronic Signature): 03/30/2019 10:44 am Mammo Digital Diagnostic Qwkoq7689-08-19 10:44:50Patient: DAYO MCINTYRE Date/Time03/30/2019 08:23 CDTReason for ExamO92.6ReportLocation R 16- [...] ultrasound for stability.RECOMMENDATIONS: 6 MONTH FOLLOW-UP [facility] BREAST ULTRASOUND AND MAMMOGRAM.Exam Date/Time03/30/2019 08:23 CDTReportBI- DS Category 3: Probably benign Final Dictated by: MD Abbi, Jacki FDictated DT/TM: 03/30/2019 9:50 amSigned by: MD Go E niola FSigned (Electronic Signature): 03/30/2019 10:44 amUS Breast Complete Lmrb9146-09-47 10:44:50Patient: DAYO MCINTYRE Date/Time03/30/2019 09:48 CDTReason for ExamO92.6ReportLocation R 16- [...] on ultrasound for stability.RECOMMENDATIONS: 6 MONTH FOLLOW-UP [facility] BREAST ULTRASOUND AND MAMMOGRAM.Exam Date/Time03/30/2019 09:48 CDTReportBI-RA DS Category 3: Probably benign Final Dictated by: MD Abbi, Jacki FDictated DT/TM: 03/30/2019 9:50 amSigned by: MD Go E niola FSigned (Electronic Signature): 03/30/2019 10:44 amMG Mammo Digital Diagnostic Rkusj3521-50-00 10:44:50Patient: DAYO MCINTYRE Date/Time03/30/2019 08:23 CDTReason for ExamO92.6ReportLocation R 16- [...] ultrasound for stability.RECOMMENDATIONS: 6 MONTH FOLLOW-UP [facility] BREAST ULTRASOUND AND MAMMOGRAM.Exam Date/Time03/30/2019 08:23 CDTReportBI-RA DS Category 3: Probably benign Final Dictated by: MD Abbi, Jacki FDictated DT/TM: 03/30/2019 9:50 amSigned by: MD Go E niola FSigned (Electronic Signature): 03/30/2019 10:44 amUS Breast Complete Wqrb4071-95-79 10:44:50Patient: DAYO MCINTYRE Date/Time03/30/2019 09:48 CDTReason for ExamO92.6ReportLocation R 16- [...] ultrasound for stability.RECOMMENDATIONS: 6 MONTH FOLLOW-UP [facility] BREAST ULTRASOUND AND MAMMOGRAM.Exam Date/Time03/30/2019 09:48 CDTReportBI-RA DS Category 3: Probably benign Final Dictated by: MD Abbi, Jacki FDictated DT/TM: 03/30/2019 9:50 amSigned by: MD Go E niola FSigned (Electronic Signature): 03/30/2019 10:44 amUS Breast Complete Shpcq7431-55-25 10:44:50Patient: DAYO MCINTYRE Date/Time03/30/2019 09:48 CDTReason for ExamO92.6ReportLocation R 16- [...] ultrasound for stability.RECOMMENDATIONS: 6 MONTH FOLLOW-UP [facility] BREAST ULTRASOUND AND MAMMOGRAM.Exam Date/Time03/30/2019 09:48 CDTReportBI-RA DS Category 3: Probably benign Final Dictated by: MD Go Eniola FDictated DT/TM: 03/30/2019 9:50 amSigned by: MD Go E niola FSigned (Electronic Signature): 03/30/2019 10:44 amUS Breast Complete Foubv8651-15-99 10:44:50Patient: DAYO MCINTYRE Date/Time03/30/2019 09:48 CDTReason for ExamO92.6ReportLocation R 16- [...] on ultrasound for stability.RECOMMENDATIONS: 6 MONTH FOLLOW-UP [facility] BREAST ULTRASOUND AND MAMMOGRAM.Exam Date/Time03/30/2019 09:48 CDTReportBI-RA DS Category 3: Probably benign Final Dictated by: MD Go Eniola FDictated DT/TM: 03/30/2019 9:50 amSigned by: MD Go E niola FSigned (Electronic Signature): 03/30/2019 10:44 amFOOT 2VIEW [facility] 2019-03-19 11:44:00 [place] [address] Patient Name: DAYO MCINTYRE MR #: [id number] : 1965 Age/Sex: 53/F Req #: [id number] Adm Physician: Ordered by: TEJAL WALLACE MD Report #: [id number] Location: [facility] Room/Bed: Procedure: 05 HOPD/FOOT 2VIEW RT - HOPD Exam Date: 03/19/19 Exa m Time: 1110 REPORT STATUS: Signed FOOT 2VIEW RT - HOPD - 2 views HISTORY: Pain COMPARISON: None availab le. FINDINGS: Generalized demineralization. No acute displaced fra cture. Osseous alignment is within normal limits. The soft tissues appear unremarkable. Vascular calcification. IMPRESSION: No acute fracture or dislocation of the right foot. Mildly displaced distal fibular fracture. Signed by: Dr. Sherri Davis MD on 03/19/2019 11:46 AM Dictated By: GISELA DAVIS MD 1146 Tra nscribed By: ANDRY on 03/19/19 1146 COPY TO: TEJAL WALLACE MD ANKLE 3 VIEW RT - [id number] 11:42:00 [place] [address] Patient Name: DAYO MCINTYRE MR #: [id number] : 1965 Age/Sex: 53/F Req #: [id number] Adm Physician: Ordered by: TEJAL WALLACE MD Report #: [id number] Location: [facility] Room/Bed: Procedure: 06 HOPD/ANKLE 3 VIEW RT - HOPD Exam Date: 03/19/19 E xam Time: 1111 REPORT STATUS: Sheri d ANKLE 3 VIEW RT - HOPD - 3 views HISTORY: Pain COMPARISON: None brett ilable. FINDINGS: See impression. IMPRESSION: Generalized demineralization. Mildly displaced intra-articular fracture of the distal rig ht fibula. Ankle mortise is intact. Vascular calcifications. Signed by: Dr. Sherri Davis MD on 03/19/2019 11:44 AM Dictated By: SHERRI DAVIS MD 1144 Transcribed By: Lauren CHISHOLM on 03/19/19 1144 COPY TO: TEJAL WALLACE MD HEMOGLOBIN [id number] 12:05:00* Test Item Value Reference Range Interpretation Comments HEMOGLOBIN A1C (BEAKER) (test code = 368) 10.5 % 4.3-6.1 H [id number] 11:58:00* Test Item Value Reference Range Interpretation Comments RPR SCREEN (InfoxelAKER) (test code = 420) Nonreactive Nonreactive VARICELLA ZOSTER ANTIBODY, [id number] 11:38:00* Test Item Value Reference Range Interpretation Comments VARICELLA ZOSTER IGG (AL) (BEAKER) (test code = 3197) 4.4 VARICELLA ZOSTER RESULT INTERPRETATIONS: <=0.8 Al Nonreactive: Presumed non-immune to VZV 0.9-1.0 Al Equivocal >=1.1 Al Reactive: Presumed immune to VZVCYTOMEGALOVIRUS ANTIBODY, [id number] 11:30:00* Test Item Value Reference Range Interpretation Comments CYTOMEGALOVIRUS, IGG (BEAKER) (test code = 3429) Positive Negat rebeca, Equivocal A CMV IgG Result Interpretation: </= 0.8 Al Negative 0.9-1.0 Al Equivocal > /=1.1 Al PositiveCYTOMEGALOVIRUS ANTIBODY, [id number] 11:30:00* Test Item Value Reference Range Interpretation Comments CYTOMEGALOVIRUS IGM ANTIBODY (BEAKER) (test code = 3437) Neg ative Negative, Equivocal CMV IgM Result Interpretation: </= 0.8 Al Negative 0.9-1.0 Al Equivocal > /= 1.1 Al PositiveEBV ANTIBODY, [id number] 11:30:00* Test Item Value Reference Range Interpretation Comments YUNIEL MACK VIRAL CAPSID ANTIGEN IGG (SUDHIRAKER) (test code = 3415) Positive Negative, Equivocal A Yuniel Mack Viral Capsid Antigen IgG Result Interpretation: </= 0.8 Al Negative 0.9-1.0 Al Equivocal >/= 1.1 Al PositiveEBV ANTIBODY, [id number] 11:30:00* Test Item Value Reference Range Interpretation Comments YUNIEL MACK VIRAL CAPSID ANTIGEN IGM (InfoxelAKER) (test code = 3418) Negative Negative, Equivocal Yuniel Mack Viral Capsid Antigen IgM Result Interpretation: </= 0.8 Al Negative 0.9-1.0 Al Equivocal >/= 1.1 Al PositiveHEPATITIS B SURFACE [id number] 11:07:00* Test Item Value Reference Range Interpretation Comments HEPATITIS B SURFACE ANTIBODY (BEAKER) (test code = 647) < mIU/mL <8.0 HEPATITIS B SURFACE [id number] 11:00:00* Test Item Value Reference Range Interpretation Comments HEPATITIS B SURFACE ANTIGEN (2) (BEAKER) (test code = 2585) Nonreactive Nonreactive HEPATITIS B CORE ANTIBODY, [id number] 11:00:00* Test Item Value Reference Range Interpretation Comments HEPATITIS B CORE IGM ANTIBODY (BEAKER) (test code = 645) Non reactive Nonreactive HEPATITIS C [id number] 11:00:00* Test Item Value Reference Range Interpretation Comments HEPATITIS C ANTIBODY (BEAKER) (test code = 367) Nonreactive Nonrea ctive HIV-1 ANTIGEN WITH HIV-1/2 [id number] 11:00:00* Test Item Value Reference Range Interpretation Comments HIV-1 ANTIGEN WITH HIV 1\\T\\2 ANTIBODY (2) (BEAKER) (te st code = 2586) Nonreactive Nonreactive PTH, [id number] 10:46:00* Test Item Value Reference Range Interpretation Comments PARATHYROID HORMONE INTACT (BEAKER) (test code = 577) 618.4 pg/mL 8.5-72.5 H COMPREHENSIVE METABOLIC [id number] 10:45:00* Test Item Value Reference Range Interpretation [...] IS NOT APPLICABLE FOR DIALYSIS PATIENTS. URIC [id number] 10:30:00* Test Item Value Reference Range Interpretation Comments URIC ACID (BEAKER) (test code = 773) 5.6 mg/dL 2.6-7.2 [id number] 10:30:00* Test Item Value Reference Range Interpretation [...] 20 H CBC W/PLT COUNT & AUTO [id number] 10:16:00* Test Item Value Reference Range Interpretation [...] (test code = 2801) 1 % 0-1 PT/[id number] 10:13:00* Test Item Value Reference Range Interpretation Comments PROTIME (BEAKER) (test code = 759) 12.9 seconds 11.7-14.7 INR (BEAKER) (test code = 370) 1.0 <=5.9 PARTIAL THROMBOPLASTIN TIME (BEAKER) (test code = 760) 30.5 seconds 22.5-36.0 RECOMMENDED COUMADIN/WARFARIN INR THERAPY RANGESSTANDARD DOSE: 2.0 - 3.0 Inclu dashawn: PROPHYLAXIS for venous thrombosis, systemic embolization; TREATMENT for naren ous thrombosis and/or pulmonary embolus.HIGH RISK: Target INR is 2.5-3.5 for pat ients with mechanical heart valves.XR Foot 2 Views Kein9525-02-19 13:02:17 Patient: DAYO MCINTYRE am Date/Time07/19/2018 12:52 CDTReason for Exampain;Pain (please specify)ReportDi ctation location Y62Htekw foot 3 views, left foot 2 viewsHISTORY: [...] 1 :02 pmXR Foot Complete 3+ Views [id number] 13:02:17Patient: DAYO MCINTYRE Date/Time07/19/2018 12:52 CDTReason for Exampain;TraumaReportDictation location B24Rfgvf foot 3 views, left foot 2 viewsHISTORY: Pain following trauma.COMMENT: The bones appear slightly demineralized. There is no acute fracture or disloca tion. No focal lesion or destructive process seen. Vascular calcifications are n oted. There are small calcaneal spurs..IMPRESSION:No acute findings. Final Dictated by: MD Hafsa, Lauren CDictated DT/TM: 07/19/2018 1:01 pmSigned b y: MD Pereyra Phebe CSigned (Electronic Signature): 07/19/2018 1:02 pmSodium [id number] 02:16:00* Test Item Value Reference Range Interpretation Comments Sodium Level (test code = 2951-2) 134 136-145 L [facility] IrvingPotassium [id number] 02:16:00* Test Item Value Reference Range Interpretation Comments Potassium Level (test code = 2823-3) 4.9 3.5-5.1 [facility] IrvingChloride [id number] 02:16:00* Test Item Value Reference Range Interpretation Comments Chloride Level (test code = 2075-0) 90 98-107 L [facility] IrvingCarbon Dioxide Kvpuq1766-02-31 02:16:00* Test Item Value Reference Range Interpretation Comments Carbon Dioxide Level (test code = 2028-9) 25 22-29 [facility] IrvingAnion [id number] 02:16:00* Test Item Value Reference Range Interpretation Comments Anion Gap (test code = 08554-9) 23.9 8-16 H [facility] IrvingBlood Urea Jknuweiv1873-34-40 02:16:00* Test Item Value Reference Range Interpretation Comments Blood Urea Nitrogen (test code = 3094-0) 55 7-26 H [facility] IrvingCreatinine2018-08-17 02:16:00* Test Item Value Reference Range Interpretation Comments Creatinine (test code = 2160-0) 8.57 0.57-1.11 H [facility] IrvingBUN/Creatinine Cxygm5876-71-23 02:16:00* Test Item Value Reference Range Interpretation Comments BUN/Creatinine Ratio (test code = 3097-3) 6 6-25 [facility] IrvingEstimat Glomerular Filtration Rate 2018-06-03 02:16:00* Test Item Value Reference Range Interpretation Comments Estimat Glomerular Filtration Rate (test code = 58651-8) 5 >60 L Ranges were taken from the National Kidney Disease Education Program and the [facility] Kidney Foundation literature.Reference ranges:60 or greater: Sqfwqf84-69 ( for 3 consecutive months): Chronic kidney disease 15 or less: Kidney failureBaylor Scott & White Medical Center – IrvingGlucose Copci1724-05-87 02:16:00* Test Item Value Reference Range Interpretation Comments Glucose Level (test code = ZEA0001) 393 74-118 H [facility] IrvingCalcium Xagms6572-53-40 02:16:00* Test Item Value Reference Range Interpretation Comments Calcium Level (test code = 35261-9) 9.4 8.4-10.2 [facility] IrvingTotal Zbcwedqhp6338-36-00 02:16:00* Test Item Value Reference Range Interpretation Comments Total Bilirubin (test code = 1975-2) 0.5 0.2-1.2 [facility] IrvingAspartate Amino Transf (AST/SGOT) 2018-06-03 02:16:00* Test Item Value Reference Range Interpretation Comments Aspartate Amino Transf (AST/SGOT) (test code = Aspartate Amino Transf (AST/SGOT)) 31 5-34 [facility] IrvingAlanine Aminotransferase (ALT/SGPT) 2018-06-03 02:16:00* Test Item Value Reference Range Interpretation Comments Alanine Aminotransferase (ALT/SGPT) (test code = 1742-6) 21 0-55 [facility] IrvingTotal Kzpwvfc5040-83-05 02:16:00* Test Item Value Reference Range Interpretation Comments Total Protein (test code = 2885-2) 7.7 6.5-8.1 [facility] IrvingAlbumin2018-08-17 02:16:00* Test Item Value Reference Range Interpretation Comments Albumin (test code = 1751-7) 3.5 3.5-5.0 [facility] IrvingGlobulin2018-08-17 02:16:00* Test Item Value Reference Range Interpretation Comments Globulin (test code = 68289-7) 4.2 2.3-3.5 H [facility] IrvingAlbumin/Globulin Bwtmv8707-20-85 02:16:00 * Test Item Value Reference Range Interpretation Comments Albumin/Globulin Ratio (test code = 1759-0) 0.8 0.8-2.0 [facility] IrvingAlkaline Ndcinzdntla4124-54-75 02:16:00* Test Item Value Reference Range Interpretation Comments Alkaline Phosphatase (test code = 6768-6) 120 40-150 [facility]evilleodium Ziezd9599-68-83 02:16:00* Test Item Value Reference Range Interpretation Comments Sodium Level (test code = 2951-2) 134 136-145 L [facility] IrvingPotassium Omvew1958-89-80 02:16:00* Test Item Value Reference Range Interpretation Comments Potassium Level (test code = 2823-3) 4.9 3.5-5.1 [facility] IrvingChloride Jsfgh4828-97-70 02:16:00* Test Item Value Reference Range Interpretation Comments Chloride Level (test code = 2075-0) 90 98-107 L [facility] IrvingCarbon Dioxide Oiebh5203-67-93 02:16:00* Test Item Value Reference Range Interpretation Comments Carbon Dioxide Level (test code = 2028-9) 25 22-29 [facility] IrvingAnion Eij5303-37-15 02:16:00* Test Item Value Reference Range Interpretation Comments Anion Gap (test code = 22320-0) 23.9 8-16 H [facility] IrvingBlood Urea Dvjgdtin4385-01-10 02:16:00* Test Item Value Reference Range Interpretation Comments Blood Urea Nitrogen (test code = 3094-0) 55 7-26 H [facility] IrvingCreatinine2018-08-17 02:16:00* Test Item Value Reference Range Interpretation Comments Creatinine (test code = 2160-0) 8.57 0.57-1.11 H [facility] IrvingBUN/Creatinine Oewwu8383-39-76 02:16:00* Test Item Value Reference Range Interpretation Comments BUN/Creatinine Ratio (test code = 3097-3) 6 6-25 [facility] IrvingEstimat Glomerular Filtration Rate 2018-06-03 02:16:00* Test Item Value Reference Range Interpretation Comments Estimat Glomerular Filtration Rate (test code = 029725190) 5 >60 L Ranges were taken from the National Kidney Disease Education Program and the [facility] Kidney Foundation literature.Reference ranges:60 or greater: Pywinz51-33 ( for 3 consecutive months): Chronic kidney disease 15 or less: Kidney failureBaylor Scott & White Medical Center – IrvingGlucose Nwizb9739-91-48 02:16:00* Test Item Value Reference Range Interpretation Comments Glucose Level (test code = CWT5500) 393 74-118 H [facility] IrvingCalcium Lqmrk3239-44-51 02:16:00* Test Item Value Reference Range Interpretation Comments Calcium Level (test code = 21943-3) 9.4 8.4-10.2 [facility] IrvingTotal Ywuzwkydx4125-29-72 02:16:00* Test Item Value Reference Range Interpretation Comments Total Bilirubin (test code = 1975-2) 0.5 0.2-1.2 [facility] IrvingAspartate Amino Transf (AST/SGOT) 2018-06-03 02:16:00* Test Item Value Reference Range Interpretation Comments Aspartate Amino Transf (AST/SGOT) (test code = Aspartate Amino Transf (AST/SGOT)) 31 5-34 [facility] IrvingAlanine Aminotransferase (ALT/SGPT) 2018-06-03 02:16:00* Test Item Value Reference Range Interpretation Comments Alanine Aminotransferase (ALT/SGPT) (test code = 1742-6) 21 0-55 [facility] IrvingTotal Sqmakbs7784-36-97 02:16:00* Test Item Value Reference Range Interpretation Comments Total Protein (test code = 2885-2) 7.7 6.5-8.1 [facility] IrvingAlbumin2018-08-17 02:16:00* Test Item Value Reference Range Interpretation Comments Albumin (test code = 1751-7) 3.5 3.5-5.0 [facility] IrvingGlobulin2018-08-17 02:16:00* Test Item Value Reference Range Interpretation Comments Globulin (test code = 44167-0) 4.2 2.3-3.5 H [facility] IrvingAlbumin/Globulin Tipxf0447-50-60 02:16:00 * Test Item Value Reference Range Interpretation Comments Albumin/Globulin Ratio (test code = 1759-0) 0.8 0.8-2.0 [facility] IrvingAlkaline Crdwmfsuqdy6443-25-42 02:16:00* Test Item Value Reference Range Interpretation Comments Alkaline Phosphatase (test code = 6768-6) 120 40-150 [facility] IrvingWhite Blood Sfoef9877-50-77 02:07:00* Test Item Value Reference Range Interpretation Comments White Blood Count (test code = 6690-2) 11.49 4.8-10.8 H [facility] IrvingRed Blood Reohk9358-92-57 02:07:00* Test Item Value Reference Range Interpretation Comments Red Blood Count (test code = 789-8) 3.47 3.6-5.1 L [facility] IrvingHemoglobin2018-08-17 02:07:00* Test Item Value Reference Range Interpretation Comments Hemoglobin (test code = 04130-0) 12.1 12.0-16.0 [facility] IrvingHematocrit2018-08-17 02:07:00* Test Item Value Reference Range Interpretation Comments Hematocrit (test code = 4544-3) 35.9 34.2-44.1 [facility] IrvingMean Corpuscular Ecrstl7009-02-47 02:07:00* Test Item Value Reference Range Interpretation Comments Mean Corpuscular Volume (test code = 787-2) 103.5 81-99 H [facility] IrvingMean Corpuscular Spmdsvqbqv0012-95-29 02:07:00* Test Item Value Reference Range Interpretation Comments Mean Corpuscular Hemoglobin (test code = 785-6) 34.9 28-32 H [facility] IrvingMean Corpuscular Hemoglobin Concent 2018-06-03 02:07:00* Test Item Value Reference Range Interpretation Comments Mean Corpuscular Hemoglobin Concent (test code = 786-4) 33.7 31-35 [facility] IrvingRed Cell Distribution Cdwfo1319-32-42 02:07:00* Test Item Value Reference Range Interpretation Comments Red Cell Distribution Width (test code = 34192-2) 13.2 11.7 -14.4 [facility] IrvingPlatelet Rveuc9519-62-18 02:07:00* Test Item Value Reference Range Interpretation Comments Platelet Count (test code = 777-3) 222 140-360 [facility] IrvingNeutrophils (%) (Auto)2018-06-03 02:07:00 * Test Item Value Reference Range Interpretation Comments Neutrophils (%) (Auto) (test code = 85565-1) 80.8 38.7-80.0 H [facility] IrvingLymphocytes (%) (Auto)2018-06-03 02:07:00 * Test Item Value Reference Range Interpretation Comments Lymphocytes (%) (Auto) (test code = 736-9) 12.2 18.0-39.1 L [facility] IrvingMonocytes (%) (Auto)2018-06-03 02:07:00* Test Item Value Reference Range Interpretation Comments Monocytes (%) (Auto) (test code = 5905-5) 4.6 4.4-11.3 [facility] IrvingEosinophils (%) (Auto)2018-06-03 02:07:00 * Test Item Value Reference Range Interpretation Comments Eosinophils (%) (Auto) (test code = 713-8) 1.8 0.0-6.0 [facility] IrvingBasophils (%) (Auto)2018-06-03 02:07:00* Test Item Value Reference Range Interpretation Comments Basophils (%) (Auto) (test code = 706-2) 0.3 0.0-1.0 [facility] IrvingIM GRANULOCYTES %2018-06-03 02:07:00* Test Item Value Reference Range Interpretation Comments IM GRANULOCYTES % (test code = IM GRANULOCYTES %) 0.3 0.0- 1.0 [facility] IrvingNeutrophils # (Auto)2018-06-03 02:07:00* Test Item Value Reference Range Interpretation Comments Neutrophils # (Auto) (test code = 751-8) 9.3 2.1-6.9 H [facility] IrvingLymphocytes # (Auto)2018-06-03 02:07:00* Test Item Value Reference Range Interpretation Comments Lymphocytes # (Auto) (test code = 11681-4) 1.4 1.0-3.2 [facility] IrvingMonocytes # (Auto)2018-06-03 02:07:00* Test Item Value Reference Range Interpretation Comments Monocytes # (Auto) (test code = 742-7) 0.5 0.2-0.8 [facility] IrvingEosinophils # (Auto)2018-06-03 02:07:00* Test Item Value Reference Range Interpretation Comments Eosinophils # (Auto) (test code = 711-2) 0.2 0.0-0.4 [facility] IrvingBasophils # (Auto)2018-06-03 02:07:00* Test Item Value Reference Range Interpretation Comments Basophils # (Auto) (test code = 704-7) 0.0 0.0-0.1 [facility] IrvingAbsolute Immature Granulocyte (auto 2018-06-03 02:07:00* Test Item Value Reference Range Interpretation Comments Absolute Immature Granulocyte (auto (chago t code = Absolute Immature Granulocyte (auto) 0.04 0-0.1 [facility] IrvingProthrombin Lxot1410-57-79 02:07:00* Test Item Value Reference Range Interpretation Comments Prothrombin Time (test code = 5902-2) 12.6 11.9-14.5 [facility] IrvingProthromb Time International Ratio 2018-06-03 02:07:00* Test Item Value Reference Range Interpretation Comments Prothromb Time International Ratio (test code = 6301-6) 1.02 Oral Anticoagulant Therapy INR Values:1. Low Intensity Therapy 1.5 - 2.02 . Moderate Intensity Therapy 2.0 - 3.03. High Intensity Therapy(1) 2.5 - 3. 54. High Intensity Therapy(2) 3.0 - 4.05. Panic Value INR > 5.0 [facility] IrvingActivated Partial Thromboplast Time 2018-06-03 02:07:00* Test Item Value Reference Range Interpretation Comments Activated Partial Thromboplast Time (test code = 78022-0) 27.6 23.8-35.5 [facility] IrvingWhite Blood Cslkw1316-36-18 02:07:00* Test Item Value Reference Range Interpretation Comments White Blood Count (test code = 6690-2) 11.49 4.8-10.8 H [facility] IrvingRed Blood Ewaaq2429-93-87 02:07:00* Test Item Value Reference Range Interpretation Comments Red Blood Count (test code = 789-8) 3.47 3.6-5.1 L [facility] IrvingHemoglobin2018-08-17 02:07:00* Test Item Value Reference Range Interpretation Comments Hemoglobin (test code = 71653-6) 12.1 12.0-16.0 [facility] IrvingHematocrit2018-08-17 02:07:00* Test Item Value Reference Range Interpretation Comments Hematocrit (test code = 4544-3) 35.9 34.2-44.1 [facility] IrvingMean Corpuscular Oqozyo0643-36-52 02:07:00* Test Item Value Reference Range Interpretation Comments Mean Corpuscular Volume (test code = 787-2) 103.5 81-99 H [facility] IrvingMean Corpuscular Uhvnxssvmf3723-54-61 02:07:00* Test Item Value Reference Range Interpretation Comments Mean Corpuscular Hemoglobin (test code = 785-6) 34.9 28-32 H [facility] IrvingMean Corpuscular Hemoglobin Concent 2018-06-03 02:07:00* Test Item Value Reference Range Interpretation Comments Mean Corpuscular Hemoglobin Concent (test code = 786-4) 33.7 31-35 [facility] IrvingRed Cell Distribution Oqrpz3928-52-98 02:07:00* Test Item Value Reference Range Interpretation Comments Red Cell Distribution Width (test code = 44709-3) 13.2 11.7 -14.4 [facility] IrvingPlatelet Mimjr1990-59-81 02:07:00* Test Item Value Reference Range Interpretation Comments Platelet Count (test code = 777-3) 222 140-360 [facility] IrvingNeutrophils (%) (Auto)2018-06-03 02:07:00 * Test Item Value Reference Range Interpretation Comments Neutrophils (%) (Auto) (test code = 54884-2) 80.8 38.7-80.0 H [facility] IrvingLymphocytes (%) (Auto)2018-06-03 02:07:00 * Test Item Value Reference Range Interpretation Comments Lymphocytes (%) (Auto) (test code = 736-9) 12.2 18.0-39.1 L [facility] IrvingMonocytes (%) (Auto)2018-06-03 02:07:00* Test Item Value Reference Range Interpretation Comments Monocytes (%) (Auto) (test code = 5905-5) 4.6 4.4-11.3 [facility] IrvingEosinophils (%) (Auto)2018-06-03 02:07:00 * Test Item Value Reference Range Interpretation Comments Eosinophils (%) (Auto) (test code = 713-8) 1.8 0.0-6.0 [facility] IrvingBasophils (%) (Auto)2018-06-03 02:07:00* Test Item Value Reference Range Interpretation Comments Basophils (%) (Auto) (test code = 706-2) 0.3 0.0-1.0 [facility] IrvingIM GRANULOCYTES %2018-06-03 02:07:00* Test Item Value Reference Range Interpretation Comments IM GRANULOCYTES % (test code = IM GRANULOCYTES %) 0.3 0.0- 1.0 [facility] IrvingNeutrophils # (Auto)2018-06-03 02:07:00* Test Item Value Reference Range Interpretation Comments Neutrophils # (Auto) (test code = 751-8) 9.3 2.1-6.9 H [facility] IrvingLymphocytes # (Auto)2018-06-03 02:07:00* Test Item Value Reference Range Interpretation Comments Lymphocytes # (Auto) (test code = 90277-6) 1.4 1.0-3.2 [facility] IrvingMonocytes # (Auto)2018-06-03 02:07:00* Test Item Value Reference Range Interpretation Comments Monocytes # (Auto) (test code = 742-7) 0.5 0.2-0.8 [facility] IrvingEosinophils # (Auto)2018-06-03 02:07:00* Test Item Value Reference Range Interpretation Comments Eosinophils # (Auto) (test code = 711-2) 0.2 0.0-0.4 [facility] IrvingBasophils # (Auto)2018-06-03 02:07:00* Test Item Value Reference Range Interpretation Comments Basophils # (Auto) (test code = 704-7) 0.0 0.0-0.1 [facility] IrvingAbsolute Immature Granulocyte (auto 2018-06-03 02:07:00* Test Item Value Reference Range Interpretation Comments Absolute Immature Granulocyte (auto (chago t code = Absolute Immature Granulocyte (auto) 0.04 0-0.1 [facility] IrvingProthrombin Nxbp0711-95-33 02:07:00* Test Item Value Reference Range Interpretation Comments Prothrombin Time (test code = 5902-2) 12.6 11.9-14.5 [facility] IrvingProthromb Time International Ratio 2018-06-03 02:07:00* Test Item Value Reference Range Interpretation Comments Prothromb Time International Ratio (test code = 6301-6) 1.02 Oral Anticoagulant Therapy INR Values:1. Low Intensity Therapy 1.5 - 2.02 . Moderate Intensity Therapy 2.0 - 3.03. High Intensity Therapy(1) 2.5 - 3. 54. High Intensity Therapy(2) 3.0 - 4.05. Panic Value INR > 5.0 [facility] IrvingActivated Partial Thromboplast Time 2018-06-03 02:07:00* Test Item Value Reference Range Interpretation Comments Activated Partial Thromboplast Time (test code = 61177-8) 27.6 23.8-35.5 [facility] IrvingPOC Glucose, Bmvmh0660-67-64 14:46:00* Test Item Value Reference Range Interpretation Comments POC Glucose (test code = POCGLUC) 476 mg/dL 70-115 Comprehensive Metabolic Qjqtt4582-11-43 13:31:00* Test Item Value Reference Range Interpretation [...] race is not provided, and the patient isAfrican-Par[place], multiply by 1.212. If sex is not [...] recommended by the National Kidney Found ation,http://nkdep.nih.gov 89031& PELVIS W/O [id number] 13:00:54DICTATION LOCATION: [id number] INFORMATION:Abd painCOMPARISON: 01/24/16PROCEDURE: CT of the Abdomen [...] or hydronephrosis. No acute abnormali ty.CBC with [id number] 13:00:00* Test Item Value Reference Range Interpretation [...] code = ALYMPH) 0.9 K/cumm 0.5-4.6 N Butler Abs (test code = AMONO) 0.4 K/cumm 0.0-1.2 N Eos Abs (test code = AEOS) 0.16 K/cumm 0.00-0.74 N Baso Abs (test code = ABASO) 0.0 K/cumm 0.00-0.21 N Comprehensive Metabolic [id number] 12:52:00* Test Item Value Reference Range Interpretation [...] race is not provided, and the patient isAfrican-Paraguayan, multiply by 1.212. If sex is not [...] by the National Kidney Found ation,http://nkdep.nih.gov Urinalysis [id number] 12:11:00* Test Item Value Reference Range Interpretation Comments Color (test code = COLOR) Yellow Yellow,Straw,Pl yellow N Clarity (test code = CLAR) Sl Cloudy Clear A Specific [place] (test code = SPGR) 1.015 1.001-1.035 N [...] = CHARLENE) None /HPF XR FOOT 3+V, [id number] 11:47:19Left hand, 3 viewsHistory: PainComparison: NoneLocation R [...] of acutefracture. Please clinically correlate.XR CHEST 1 [id number] 11:46:40Chest, one viewLOCATION CODE: R 16HISTORY: DyspneaCOMPARISON: 10/30/2017FINDINGS:The heart size is normal and the lungs are clear. There is no evidenceof pleural effusion, pulmonary edema or patchy lobar consolidation.IMPRESSION: 1. No acute [facility] Glucose, Blood 2017-10-30 11:30:00* Test Item Value Reference Range Interpretation Comments POC Glucose (test code = POCGLUC) 329 mg/dL 70-115 H If you consider your patient critically ill, the Larry Accu-Chek InformII metershould not be used for Glucose determinations.Draw a venous Glucose and send to the Main Lab for Analysis. POC Glucose, [id number] 12:10:00* Test Item Value Reference Range Interpretation Comments POC Glucose (test code = POCGLUC) 313 mg/dL 70-115 H Notify RN or MDIf you consider your patient critically ill, the Larry Accu-Chek InformII metershould not be used for Glucose determinations.Draw a venous Glucose and send to the Main Lab for Analysis. POC Glucose, [id number] 12:10:00* Test Item Value Reference Range Interpretation Comments POC Glucose (test code = POCGLUC) 313 mg/dL 70-115 H Repeat TestNotify RN or MDIf you consider your patient critically ill, the Larry Accu-Chek InformII metershould not be used for Glucose determinations.Draw a venous Glucose and send to the Main Lab for Analysis. POC Glucose, [id number] 07:51:00* Test Item Value Reference Range Interpretation Comments POC Glucose (test code = POCGLUC) 101 mg/dL 70-115 N If you consider your patient critically ill, the Larry Accu-Chek InformII metershould not be used for Glucose determinations.Draw a venous Glucose and send to the Main Lab for Analysis. Troponin [id number] 07:28:00* Test Item Value Reference Range Interpretation Comments Troponin T (test code = GILLIAN) 0.062 ng/mL 0.000-0.090 N CBC with [id number] 07:24:00* Test Item Value Reference Range Interpretation [...] code = ALYMPH) 2.0 K/cumm 0.5-4.6 N Butler Abs (test code = AMONO) 0.4 K/cumm 0.0-1.2 N Eos Abs (test code = AEOS) 0.36 K/cumm 0.00-0.74 N Baso Abs (test code = ABASO) 0.1 K/cumm 0.00-0.21 N Macrocytosis (test code = MACRO) Slight Basic Metabolic [id number] 07:21:00* Test Item Value Reference Range Interpretation [...] race is not provided, and the patient isAfrican-Paragu[place], multiply by 1.212. If sex is not [...] by the National Kidney Found ation,http://nkdep.nih.gov CK [id number] 23:10:00* Test Item Value Reference Range Interpretation Comments CK (test code = CK) 53 U/L 26-192 N CK [id number] 23:10:00* Test Item Value Reference Range Interpretation Comments CK (test code = CK) 53 U/L 26-192 N CKMB (test code = CKMB) 2.1 ng/mL 0.0-2.8 N CKMB% (test code = CKMBP) 4.0 % 0.0-3.4 H Troponin [id number] 23:08:00* Test Item Value Reference Range Interpretation Comments Troponin T (test code = GILLIAN) 0.057 ng/mL 0.000-0.090 N POC Glucose, [id number] 20:13:00* Test Item Value Reference Range Interpretation Comments POC Glucose (test code = POCGLUC) 345 mg/dL 70-115 H Notify RN or MDIf you consider your patient critically ill, the Larry Accu-Chek InformII metershould not be used for Glucose determinations.Draw a venous Glucose and send to the Main Lab for Analysis. Comprehensive Metabolic [id number] 09:57:00* Test Item Value Reference Range Interpretation [...] race is not provided, and the patient isAfrican-Par[place], multiply by 1.212. If sex is not [...] recommended by the National Kidney Found ation,http://nkdep.nih.gov [id number] 09:54:00* Test Item Value Reference Range Interpretation Comments NT ProBnp (test code = PBNP) 3854 pg/mL 0-124 H CK [id number] 09:54:00* Test Item Value Reference Range Interpretation Comments CK (test code = CK) 74 U/L 26-192 N CK [id number] 09:54:00* Test Item Value Reference Range Interpretation Comments CK (test code = CK) 74 U/L 26-192 N CKMB (test code = CKMB) 2.6 ng/mL 0.0-2.8 N CKMB% (test code = CKMBP) 3.5 % 0.0-3.4 H Troponin [id number] 09:54:00* Test Item Value Reference Range Interpretation Comments Troponin T (test code = GILLIAN) 0.057 ng/mL 0.000-0.090 N CBC with [id number] 09:38:00* Test Item Value Reference Range Interpretation [...] code = ALYMPH) 1.0 K/cumm 0.5-4.6 N Butler Abs (test code = AMONO) 0.4 K/cumm 0.0-1.2 N Eos Abs (test code = AEOS) 0.26 K/cumm 0.00-0.74 N Baso Abs (test code = ABASO) 0.1 K/cumm 0.00-0.21 N Macrocytosis (test code = MACRO) Slight
[2020-06-15] MEDS ORDERED: INSULIN REGULAR, HUMAN 100 UNIT/1 ML 3ML VIAL IV ONE (16:00)
[2020-06-15] MEDS ORDERED: CALCIUM GLUCONATE 10% INJ 4.65 MEQ in SODIUM CHLORIDE 0.9% 50ML 50 ML IV ONE (16:00)
--- NOTE | 2020-06-15 16:18 | Diagnostic Imaging Report ---
EXAMINATION: CHEST SINGLE (PORTABLE) INDICATION: MISSED HD COMPARISON: multiple priors including most recent on 06/12/2020. FINDINGS: TUBES and LINES: None. LUNGS: The left lung volumes are low. The right lung is well inflated. There is redemonstration of left basilar opacity silhouetting the left hemidiaphragm. There is prominent interstitial lung markings throughout both lungs and right basilar atelectasis. PLEURA: Moderate left pleural effusion is seen. No evidence of pleural effusion on the right. No pneumothorax. HEART AND MEDIASTINUM: The cardiomediastinal silhouette is unchanged. BONES AND SOFT TISSUES: No acute osseous lesion. Soft tissues are unchanged. UPPER ABDOMEN: No free air under the diaphragm. IMPRESSION: 1. Redemonstration of moderate left pleural effusion with left basilar opacity which most likely represents superimposed atelectasis. No significant interval change when compared to most recent prior examination. 2. Prominent interstitial lung markings throughout both lungs may represent pulmonary vascular congestion. Signed by: Berto Reinoso MD on 06/15/2020 4:15 PM
--- NOTE | 2020-06-15 16:25 | Emergency Department Note ---
History of Present Illnes History of Present Illness Chief Complaint: General Medicine Complaints History of Present Illness This is a 54 year old female PATIENT PRESENTS TO ER VIA EMS FROM [facility] WITH COMPLAINT OF MISSING DIALYSIS WEDNESDAY AND TODAY. 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 Any updates have been documented here. Past Medical History Recent Fever: No Clinical Suspicion of Infectio: No New/Unexplained Change in Ment: No Past Medical History: Hypertension, Diabetes, Asthma, ESRD, Hemodyalisis, Hyperlipedemia Other Medical History: ORTHOSTATIC HTN Past Surgical History: Hysterectomy, Bariatric Surgery Other Surgery: fistula and tummy tuck RECONSTRUCTIVE HAND SURGERY Social History Smoking Cessation: Never Smoker Counseling Performed: No Alcohol Use: None Any Illegal Drug Use: No TB Exposure/Symptoms: No Physically hurt or threatened: No Family History Family history of heart diseas: No Other Last Tetanus: UTD Any Pre-Existing Lines (PICC,: No Review of Systems Review of Systems Constitutional: Reports no symptoms EENTM: Reports no symptoms Cardiovascular: Reports no symptoms Respiratory: Reports as per HPI Gastrointestinal: Reports no symptoms Genitourinary: Reports no symptoms Musculoskeletal: Reports no symptoms Integumentary: Reports no symptoms Neurological: Reports no symptoms Psychological: Reports no symptoms Endocrine: Reports no symptoms Hematological/Lymphatic: Reports no symptoms Physical Exam Related Data Allergies: Coded Allergies: Penicillins (Verified Allergy, Severe, ANAPHYLAXIS, 12/11/19) coconut (Verified Allergy, Intermediate, 12/11/19) plum (Verified Allergy, Unknown, 12/11/19) glyburide (Verified Adverse Reaction, Intermediate, PALPATATIONS, 12/11/19) Triage Vital Signs Vital Signs Date Time Temp Pulse Resp B/P (MAP) Pulse Ox O2 Delivery O2 Flow Rate FiO2 06/15/20 14:19 77 14 96 Room Air 06/15/20 14:48 98.6 Vital signs reviewed: Yes Physical Exam CONSTITUTIONAL Constitutional: Present obese, Present morbidly obese HENT HENT: Present normocephalic, Present atraumatic, Present oropharynx clear/moist, Present nose normal HENT L/R: Present left ext ear normal, Present right ext ear normal EYES Eyes: Reports PERRL, Reports conjunctivae normal NECK Neck: Present ROM normal PULMONARY Pulmonary: Present effort normal, Present rales CARDIOVASCULAR Cardiovascular: Present regular rhythm, Present heart sounds normal, Present capillary refill normal, Present normal rate GASTROINTESTINAL Abdominal: Present soft, Present nontender, Present bowel sounds normal GENITOURINARY Genitourinary: Present exam deferred SKIN Skin: Present warm, Present dry MUSCULOSKELETAL Musculoskeletal: Present edema, Present other (LEFT FOREARM FISTULA WITH GOOD THRILL) NEUROLOGICAL Neurological: Present alert, Present oriented x 3, Present no gross motor or sensory deficits PSYCHOLOGICAL Psychological: Present mood/affect normal, Present judgement normal Results Laboratory Result Diagram: 06/15/20 1424 06/15/20 1424 Laboratory Laboratory Tests Test 06/15/20 14:24 White Blood Count 11.38 x10e3/uL (4.8-10.8) Red Blood Count 3.09 x10e6/uL (3.6-5.1) Hemoglobin 10.0 g/dL (12.0-16.0) Hematocrit 31.2 % (34.2-44.1) Mean Corpuscular Volume 101.0 fL (81-99) Mean Corpuscular Hemoglobin 32.4 pg (28-32) Mean Corpuscular Hemoglobin Concent 32.1 g/dL (31-35) Red Cell Distribution Width 13.0 % (11.7-14.4) Platelet Count 292 x10e3/uL (140-360) Neutrophils (%) (Auto) 80.6 % (38.7-80.0) Lymphocytes (%) (Auto) 8.4 % (18.0-39.1) Monocytes (%) (Auto) 5.2 % (4.4-11.3) Eosinophils (%) (Auto) 4.5 % (0.0-6.0) Basophils (%) (Auto) 0.8 % (0.0-1.0) Neutrophils # (Auto) 9.2 (2.1-6.9) Lymphocytes # (Auto) 1.0 (1.0-3.2) Monocytes # (Auto) 0.6 (0.2-0.8) Eosinophils # (Auto) 0.5 (0.0-0.4) Basophils # (Auto) 0.1 (0.0-0.1) Absolute Immature Granulocyte (auto 0.06 x10e3/uL (0-0.1) Prothrombin Time 12.5 seconds (11.9-14.5) Prothromb Time International Ratio 0.89 Activated Partial Thromboplast Time 28.1 seconds (23.8-35.5) Sodium Level 135 mmol/L (136-145) Potassium Level 6.6 mmol/L (3.5-5.1) Chloride Level 96 mmol/L (98-107) Carbon Dioxide Level 24 mmol/L (22-29) Anion Gap 21.6 mmol/L (8-16) Blood Urea Nitrogen 81 mg/dL (7-26) Creatinine 10.64 mg/dL (0.57-1.11) Estimat Glomerular Filtration Rate 4 ML/MIN (60-) BUN/Creatinine Ratio 8 (6-25) Glucose Level 250 mg/dL (74-118) Calcium Level 9.1 mg/dL (8.4-10.2) Total Bilirubin 0.6 mg/dL (0.2-1.2) Aspartate Amino Transf (AST/SGOT) 30 IU/L (5-34) Alanine Aminotransferase (ALT/SGPT) 20 IU/L (0-55) Alkaline Phosphatase 226 IU/L (40-150) Creatine Kinase 96 IU/L (29-168) Creatine Kinase MB 2.40 ng/mL (0-5.0) Troponin I 0.066 ng/mL (0-0.300) Total Protein 6.8 g/dL (6.5-8.1) Albumin 3.1 g/dL (3.5-5.0) Globulin 3.7 g/dL (2.3-3.5) Albumin/Globulin Ratio 0.8 (0.8-2.0) Lab results reviewed: Yes Imaging Imaging results reviewed: Yes Procedures 12 Lead ECG Interpretation ECG Interpretation : ECG: ECG 1 Marine Fireman: Interpreted by ED physician Date: Jun 15, 2020 Time: 13:43 Rhythm: sinus rhythm Rate: normal (78) QRS axis: normal Conduction: intraventricular conduction delay ST segments normal: Yes T wave inversion: aVL Clinical Impression: abnormal ECG Additional Comments PEAKED T-WAVES Assessment & Plan Medical Decision Making [facility] MISSED HD X 2 SESSIONS, SOB - CHECK CBC, CHEM'S, CARDIACS, ECG, CXR - EVAL FOR VOLUME OVERLOAD, STEMI/NSTEMI, PNEUMONIA Reassessment Reassessment ADMIT TO DR MARX, ALSO SPOKE WITH DR LAKE - HE WILL DIALYZE TODAY Assessment & Plan Final Impression: (1) ESRD (end stage renal disease) on dialysis (2) Volume overload (3) Hyperkalemia Depart Disposition: ADMITTED Last Vital Signs Date Time Temp Pulse Resp B/P (MAP) Pulse Ox O2 Delivery O2 Flow Rate FiO2 06/15/20 15:10 98.0 76 18 186/67 98 Room Air Medications in the ED Calcium Gluconate 4.65 meq/Sodium Chloride 60 ml @ 60 mls/hr ONCE ONCE IV Last administered on 06/15/20at 15:43; Admin Dose 60 MLS/HR; Start 06/15/20 at 16:00; Stop 06/15/20 at 16:59 Sodium Bicarbonate 50 ml NOW STAT IV Last administered on 06/15/20at 15:43; Admin Dose 50 ML; Start 06/15/20 at 15:08; Stop 06/15/20 at 15:15; Status DC Insulin Human Regular 10 unit ONCE ONCE IV Last administered on 06/15/20at 15:21; Admin Dose 10 UNIT; Start 06/15/20 at 16:00; Stop 06/15/20 at 16:01; Status DC Dextrose 50 ml NOW STAT IV Last administered on 06/15/20at 15:43; Admin Dose 50 ML; Start 06/15/20 at 15:08; Stop 06/15/20 at 15:14; Status DC PARAM GARCIA MD Jun 15, 2020 16:25
[2020-06-15] MEDS: INSULIN LISPRO 100 UNIT/1 ML 3ML VIAL SQ SCH ×2 (16:30→21:00)
[2020-06-15] MEDS ORDERED: DEXTROSE 50% SYRINGE 50 ML IV PRN (16:30)
--- OUTSIDE RECORDS SUMMARY | 2020-06-15 16:35 | XMS REPORT | Clinical Summary ---
Author Author [facility] Organization [facility] Address Unknown Phone Unavailable Care Team Providers Care Daycare Teacher Name Role Phone Asked, No Pcp PCP [...] B Medicaid MEDICAID MEDICAID xxxxxxxxx 2016- Present [phone] Advance Directives For more information, please contact: [phone] Patient Chief Ii Dispatcher Explanation Type Date Recorded Advance Directives, Living Will and Medical Power of Straightener And Aligner
--- OUTSIDE RECORDS SUMMARY | 2020-06-15 16:35 | XMS REPORT | Clinical Summary ---
Author Author [facility] Address Unknown Phone Unavailable Care Team Providers Care Plant Operations Worker Name Role Phone Mike Forbes PCP Unavailable [...] . Active FA-vit Take 1 tablet 0 Bcomp&J-qbyqwhkk-syes by mouth 2 (FOLIC ACID-VITAMIN B (two) times COMPLEX-VITAMIN daily . [id number]) 3-70-15 mg-mcg-mg Tab Active omega-3 fatty acids-fish [...] (end stage renal disease) on dialys is ([facility]) (Primary Dx); Pre-transplant evaluation for ESRD (end stage renal disease); Abnormal laboratory test; Hypertension, unspecified type; Other specified diabetes mellitus with chronic kidney disease on chronic dialysis, unspecified whether mcc insulin use ([facility]) 06/11/2020 Orders Only Transplant Sav[place]ah San 06/11/2020 [...] Medicare B MEDICAID MEDICAID xxxxxxxxx Medicaid [place] [id number]
--- OUTSIDE RECORDS SUMMARY | 2020-06-15 16:36 | XMS REPORT | Continuity of Care Document ---
Author Author [facility] t Organization [facility] Address [address] [place] [address] Phone Unavailable Care Team Providers Care Sheet Cutter Name Role Phone NONSTAFF PCP Unavailable Myriam MAGUIRE Attphys Unavailable Hina GARCIA Attphys Unavailable Eusebia Magaña RN Attphys Unavailable Savanah San Attphys Unavailable [place] North Attphys Unavailable Derrek, Lance Attphys Unavailable Derrek, Lance Attphys Unavailable AlonsoEun Attphys Unavailable Bethanie Reddyinda Attphys Unavailable Hina WALLACE Attphys Unavailable INCK, LEWIS BHAMIDIPATI Attphys Unavailable AFUWAPE, LUKUMAN Attphys Unavailable HOSSAIN, MANCINI Attphys Unavailable ADERINTO, OLUMAYOWA Attphys Unavailable [place] Min Admphys Unavailable Derrek, Lance Admphys Unavailable AFUWAPE, LUKUMAN Admphys Unavailable HOSSAIN, MANCINI Admphys Unavailable ADERINTO, OLUMAYOWA Admphys Unavailable Payers Payer Name Policy Type Policy Number Effective Date Expiration Date S corina MEDICAREMEDICARE A BxxxxxxxxxxxMedicare xxxxxxxxxxx [facility] [place]icaid xxxxxxxxx [facility] [id number] 2019 00:00:00 [facility] Medicare A & B [id number] 2013 00:00:00 [facility] Problems Condition Name Condition Details Condition Category Status Onset Date Resolution Date Last Treatment Date Treating Clinician Comments Source ESRD (end stage renal disease) ESRD (end stage renal disease) Disea se Active 2014-05-21 00:00:00 Last Assessm ent & Plan: In evaluation. Weight loss management [facility] Allergies, Adverse Reactions, Alerts Allergy Name Allergy Type Status Severity Reaction(s) Onset Date Inacti ve Date Treating Clinician Comments Source Glyburide Propensity to adverse reactions Active Moderate PALP ATATIONS 2019-12-11 00:00:00 [facility] Frohna Allergy to substance Active 2019-12-11 00:00:00 [facility] coconut Allergy to substance Active Moderate 2019-12-11 00:00:00 [facility] Penicillin Allergy to substance Active Severe ANAPHYLAXIS 2019-12-11 0 0:00:00 [facility] Penicillins DA Active U 2018-05-30 00:00:00 [facility] glyburide DA Active SV 2018-05-30 00:00:00 [facility] Amoxicillin Propensity to adverse reactions to drug Active 2016-10-26 00:00:00 [facility] Penicillins Propensity to adverse reactions to drug Active 2016-10-26 00:00:00 [facility] Glyburide Propensity to adverse reactions Active 05-21 00:00:00 Tachycardia [facility] Penicillins Propensity to adverse reactions Active Inge phylaxis, Hives 2014-05-21 00:00:00 [facility] Social History Social Habit Start Date Stop Date Quantity Comments Source Sex Assigned At [facility] Alcohol intake 2016-10-26 00:00:00 2016-10-26 00:00:00 Current non-drinker of alcohol (finding) [facility] Caodaism Smoking Status Start Date Stop Date Source Never smoker [facility] Medications Ordered Medication Name Filled Medication Name Start Date Stop Da te Current Medication? Ordering Clinician Indication Dosage Frequency Signature (SIG) Comments Components Source FA-vit Bcomp&X-zmhglgzb-mxrs (FOLIC ACID -VITAMIN B COMPLEX-VITAMIN B-FKHNXIKP-NWFI) 3-70-15 mg-mcg-mg Tab 2018-11-01 13:17:23 Yes 1{tbl} Q.5D Take 1 tablet by mouth 2 (two) times daily . [facility] sertraline (ZOLOFT) 50 MG tablet 2018-11-01 13:17:23 Yes 50mg Q.5D Take 50 mg by mouth 2 (two) times daily . [facility] ferric citrate (AURYXIA) 210 mg iron Tab 2018-11-01 13:17:23 Yes 420mg Q.[id number] Take 420 mg by mouth 3 (three) times daily . [facility] midodrine (PROAMATINE) 5 MG tablet 2018-11-01 13:14:49 Yes 5mg Take 5 mg by mouth. [facility] furosemide (LASIX) 80 MG tablet 2018-11-01 13:14:49 Yes 80mg Q.[id number] Take 80 mg by mouth 3 (three) times daily. [facility] insulin glargine (LANTUS) 100 unit/mL injection 2018-11-01 11:26 :30 Yes 25U QD Inject 25 Units subcutaneously every morning Use as di rected . [facility] omega-3 fatty acids-fish oil 340-1,000 mg Cap per capsule 2018-11-01 11:26:29 Yes 2g Q.5D Take 2 g by mouth 2 (two) times daily. [facility] sevelamer (RENVELA) 800 mg tablet 2018-11-01 11:26:29 Yes 800mg Take 800 mg by mouth 3 (three) times daily with meals. [facility] ondansetron (ZOFRAN) 4 MG tablet 2018-11-01 11:26:29 Yes 4mg Take 4 mg by mouth 2 (two) times daily as needed for Nausea. [facility] cholecalciferol, vitamin D3, 50,000 unit Tab 2014-06-27 10:09:48 Yes 05968Q Take 50,000 Units by mouth. [facility] simvastatin (ZOCOR) 20 MG tablet 2014-05-21 14:55:17 Yes 20mg QD Take 20 mg by mouth nightly. [facility] levothyroxine (SYNTHROID, LEVOTHROID) 75 MCG tablet 05-21 14:55:17 Yes 75ug QD Take 75 mcg by mouth daily. [facility] metoprolol (LOPRESSOR) 50 MG tablet 2014-05-21 14:55:17 Yes 50mg Q.5D Take 50 mg by mouth 2 (two) times daily. [facility] Vital Signs Vital Name Observation Time Observation Value Comments Source Body height 2020-03-28 15:50:00 162.6 cm [facility] Body weight Measured 2020-03-28 15:50:00 94 kg [facility] BMI 2020-03-28 15:50:00 35.57 kg/m2 [facility] Body Temperature 2020-03-20 21:59:00 97.8 [degF] [facility] Weight 2020-03-20 17:02:00 228 [lb_av] [facility] BMI (Body Mass Index) 2020-03-20 17:02:00 39.1 kg/m2 [facility] Procedures Procedure Date / Time Performed Performing Clinician Grant yolande Computed tomography of brain without radiopaque contrast 2020-03 00:00:[address] [facility] [address] of abdomen and pelvis without contrast 2019-12-11 00:00:00 [facility] Plan of Care Planned Activity Planned Date Details Comments Source Future Scheduled Test 2020-07-18 00:00:00 INFLUENZA VACCINE [code = INFLUENZA VACCINE] [facility] Future Scheduled Test 2020-06-18 00:00:00 INFLUENZA VACCINE (#1) [code = INFLUENZA VACCINE (#1)] [facility] 2019-01-30 00:00:00 Hemoglobin A1c sandy surement (procedure) [code = 23297203] [facility] r Future Scheduled Test 2017-08-09 00:00:00 Lipid panel (proce dure) [code = 17327377] [facility] r Future Scheduled Test 2015 00:00:00 BREAST CANCER SCRE ENING [code = BREAST CANCER SCREENING] [facility] Scheduled Test 2015 00:00:00 COLONOSCOPY SCREEN ING [code = COLONOSCOPY SCREENING] [facility] Scheduled Test 2015 00:00:00 SHINGLES VACCINES (#1) [code = SHINGLES VACCINES (#1)] [facility] Scheduled Test 2014-10-19 00:00:00 MEDICARE ANNUAL WE LLNESS (YEAR 2 or FIRST YEAR if no IPPE) [code = MEDICARE ANNUAL WELLNESS (YEAR 2 or FIRST YEAR if no IPPE)] [facility] r Future Scheduled Test 1986 00:00:00 Screening for yareli gnant neoplasm of cervix (procedure) [code = 339491098] [facility] Future Scheduled Test 1986 00:00:00 Screening for yareli gnant neoplasm of cervix (procedure) [code = 840301218] [facility] Future Scheduled Test 1975 00:00:00 DIABETIC FOOT EXAM [code = DIABETIC FOOT EXAM] [facility] Scheduled Test 1975 00:00:00 URINE MICROALBUMIN [code = URINE MICROALBUMIN] [facility] Scheduled Test 1975 00:00:00 DIABETIC EYE EXAM [code = DIABETIC EYE EXAM] [facility] Future Scheduled Test 1975 00:00:00 Diabetic foot exam ination (regime/therapy) [code = 445255881] [facility] Future Scheduled Test 1975 00:00:00 Urine screening fo r protein (procedure) [code = 310756554] [facility] Future Scheduled Test 1971 00:00:00 PNEUMOCOCCAL VACCI NE 2-64 YEARS AT RISK (1 of 1 - PPSV23) [code = PNEUMOCOCCAL VACCINE 2-64 YEARS AT RISK (1 of 1 - PPSV23)] [facility] Future Scheduled Test 1965 00:00:00 DIABETIC RETINAL E YE EXAM [code = DIABETIC RETINAL EYE EXAM] [facility] Future Scheduled Test 1965 00:00:00 Screening for yareli gnant neoplasm of breast (procedure) [code = 241820444] [facility] [place] 00:00:00 Screening for yareli gnant neoplasm of colon (procedure) [code = 519567625] [facility] [place] Inst[facility] Hypertension [facility] Instructions Hyperglycemia [facility] Instructions Kidney Failure [facility] Encounters Start Date/Time End Date/Time Encounter Type Admission Type Attendi [facility] Care Department Encounter ID Source 2020-06-04 14:45:00 2020-06-07 18:32:00 Inpatient 1 [place] [facility] MED [id number] [facility] 2020-06-04 14:45:00 2020-06-04 14:45:00 Inpatient 1 [place] [facility] MED [id number] [facility] 2020-05-31 17:10:00 2020-05-31 19:35:00 Emergency 1 Lance Ellis Lance [facility] SAMANTHA [id number] [facility] 2020-05-31 17:10:00 2020-05-31 17:10:00 Emergency [facility] [id number] [facility] 2020-03-20 17:06:00 2020-03-20 22:11:00 Departed Emergency Room 1 [facility] [id number] [facility] 2019-12-11 14:05:00 2019-12-11 20:30:00 Departed Emergency Room 1 [place] [facility] [id number] [facility] 2019-03-19 09:53:00 2019-03-19 13:10:00 Departed Emergency Room 1 TEJAL WALLACE [facility] [id number] [facility] 2018-06-03 00:24:00 2018-06-03 03:00:00 Departed Emergency Room [facility] [id number] [facility] 2018-06-02 22:24:00 2018-06-02 23:20:00 Departed Emergency Room [facility] [id number] [facility] 2017-12-01 11:50:00 2017-12-01 11:50:00 Emergency E ALEX LEVY AN [facility] MED [id number] [facility] 2017-10-30 10:20:00 2017-10-30 10:20:00 Emergency E FATOU GERMAIN CLEMENTINA [facility] MED [id number] [facility] 2017-06-10 16:45:00 2017-06-10 16:45:00 Outpatient [facility] [id number] [facility] Results Test Description Test Time Test Comments Results Result Comments Source CHEST SINGLE (PORTABLE) 2020-06-15 16:10:00 [place] [address] Patient Name: DAYO MCINTYRE MR #: [id number] : 1965 Age/Sex: 54/F Req #: [id number] Adm Physician: Ordered by: PARAM GARCIA MD Report #: [id number] Location: ER Room/Bed: Procedure: [id number] DX/CHEST SINGLE (PORTABLE) Exam Date: 06/15/20 Exam Time: 1449 REPORT STATUS: Signed EXAMINATION: CHEST SINGLE (PORTABLE) INDICATION: MISSED HD COMPARISON: multiple priors including most recent on 06/12/2020. FINDINGS: TUBES and LINES: None. LUNGS: The left lung volumes are low. The right lung is well inflate d. There is redemonstration of left basilar opacity silhouetting the left hemidiaphragm. There is prominent interstitial lung markings throughout both lungs and right basilar atelectasis. PLEURA: Moderate left pleural effusion is seen. No evidence of pleural effusion on the right. No pneumothorax. HEART AND MEDIASTINUM: The cardiomediastinal silhouette is unchanged. BONES AND SOFT TISSUES: No acute osseous lesion. Soft tissues are unchanged. UPPER ABDOMEN: No free air under the diaphragm. IMPRESSION: 1. Redemonstration of moderate left pleural effusion with left basilar opacity which most likely represents superimposed atelectasis. No significant interval change when compared to most recent prior examination. 2. Prominent interstitial lung markings throughout both lungs may represent pulmonary vascular congestion. Signed by: Berto Hatch MD on 06/15/2020 4:15 PM Dictated By: BERTO HATCH MD 161 Transcribed By: ANDRY on 06/15/20 1615 COPY TO: PARAM GARCIA MD CHEST 2 VIEWS 2020-06-12 13:38:00 [place] [address] Patient Name: DAYO MCINTYRE MR #: [id number] : 1965 Age/Sex: 54/F Req #: [id number] Adm Physician: Ordered by: YOLI MAGUIRE MD Report #: [id number] Location: OR Room/Bed: Procedure: [id number] DX/CHEST 2 VIEWS Exam Date: 06/12/20 Exam [...] to the main Lab for analysis. POC [id number] 12:32:25* Test Item Value Reference Range Interpretation Comments Glucose POC (test code = Glucose POC) 227 mg/dL 70-115 H If you consider your patient critically ill, the Larry-Accu Check Infrom II meter should not be used for Glucose determination. Draw a venous Glucose and send to the main Lab for analysis. POC [id number] 07:05:57* Test Item Value Reference Range Interpretation Comments Glucose POC (test code = Glucose POC) 173 mg/dL 70-115 H If you consider your patient critically ill, the Larry-Accu Check Infrom II meter should not be used for Glucose determination. Draw a venous Glucose and send to the main Lab for analysis. POC [id number] 19:26:24* Test Item Value Reference Range Interpretation Comments Glucose POC (test code = Glucose POC) 262 mg/dL 70-115 H If you consider your patient critically ill, the Larry-Accu Check Infrom II meter should not be used for Glucose determination. Draw a venous Glucose and send to the main Lab for analysis. POC [id number] 16:25:57* Test Item Value Reference Range Interpretation Comments Glucose POC (test code = Glucose POC) 220 mg/dL 70-115 H If you consider your patient critically ill, the Larry-Accu Check Infrom II meter should not be used for Glucose determination. Draw a venous Glucose and send to the main Lab for analysis. POC [id number] 11:59:28* Test Item Value Reference Range Interpretation Comments Glucose POC (test code = Glucose POC) 274 mg/dL 70-115 H If you consider your patient critically ill, the Larry-Accu Check Infrom II meter should not be used for Glucose determination. Draw a venous Glucose and send to the main Lab for analysis. CT Ankle w/o Contrast [id number] 10:41:51Patient: DAYO MCINTYRE Date/Time06/05/2020 17:01 CDTReason for [...] iterative reconstruction technique. Total DLP: 172.5mGy-cm.Comparison: 05/31/2020Site: A99Kkloxccn:There is a predominantly transversely oriented f racture [...] Robert KSigned (Electronic Signature): 06/06/2020 10:41 amPOC [id number] 08:15:25* Test Item Value Reference Range Interpretation Comments Glucose POC (test code = Glucose POC) 217 mg/dL 70-115 H If you consider your patient critically ill, the Larry-Accu Check Infrom II meter should not be used for Glucose determination. Draw a venous Glucose and send to the main Lab for analysis. POC [id number] 22:06:26* Test Item Value Reference Range Interpretation Comments Glucose POC (test code = Glucose POC) 233 mg/dL 70-115 H Notify RN or MDIf you consider your patient critically ill, the Larry-Accu Check Infrom II meter should not be used for Glucose determination. Draw a venous Glucose and send to the main Lab for analysis. POC [id number] 16:37:18* Test Item Value Reference Range Interpretation Comments Glucose POC (test code = Glucose POC) 96 mg/dL 70-115 Notify RN or MDIf you consider your patient critically ill, the Larry-Accu Check Infrom II meter should not be used for Glucose determination. Draw a venous Glucose and send to the main Lab for analysis. Hepatitis B Surface [id number] 13:27:25* Test Item Value Reference Range Interpretation Comments Hep Bs Ag (test code = Hep Bs Ag) Non-Reactive Non-Reactive POC [id number] 10:32:27* Test Item Value Reference Range Interpretation Comments Glucose POC (test code = Glucose POC) 412 mg/dL 70-115 Notify RN or MDIf you consider your patient critically ill, the Larry-Accu Check Infrom II meter should not be used for Glucose determination. Draw a venous Glucose and send to the main Lab for analysis. POC [id number] 06:41:52* Test Item Value Reference Range Interpretation Comments Glucose POC (test code = Glucose POC) 261 mg/dL 70-115 H If you consider your patient critically ill, the Larry-Accu Check Infrom II meter should not be used for Glucose determination. Draw a venous Glucose and send to the main Lab for analysis. XR Chest 1 View [id number] 06:19:23Patient: DAYO MCINTYRE Date/Time06/05/2020 02:53 CDTReason for ExamCongestionReportAFTER HOURS SERVICE ON: 06/05/2020 6:18 AMAP Portable ChestLocation Code [id number]: CongestionFINDINGS:There is a persistent moderate left pleural [...] Mohammad TSigned (Electronic Signature): 06/05/2020 6:19 amPOC [id number] 04:11:47* Test Item Value Reference Range Interpretation Comments Glucose POC (test code = Glucose POC) 327 mg/dL 70-115 H If you consider your patient critically ill, the Larry-Accu Check Infrom II meter should not be used for Glucose determination. Draw a venous Glucose and send to the main Lab for analysis. POC [id number] 00:25:27* Test Item Value Reference Range Interpretation Comments Glucose POC (test code = Glucose POC) 316 mg/dL 70-115 H Notify RN or MDIf you consider your patient critically ill, the Larry-Accu Check Infrom II meter should not be used for Glucose determination. Draw a venous Glucose and send to the main Lab for analysis. Troponin [id number] 23:41:48* Test Item Value Reference Range Interpretation [...] recommended at 0, 3, 6 hours. POC [id number] 19:21:20* Test Item Value Reference Range Interpretation Comments Glucose POC (test code = Glucose POC) 324 mg/dL 70-115 H Notify RN or MDIf you consider your patient critically ill, the Larry-Accu Check Infrom II meter should not be used for Glucose determination. Draw a venous Glucose and send to the main Lab for analysis. US Lower Ext Venous Duplex [id number] 18:19:32Patient: DAYO MCINTYRE Date/Time06/04/2020 18:07 CDTReason for ExamExtremity EdemaReportEXAM: LEFT [...] Signatur e): 06/04/2020 6:19 pmCT Brain/Head w/o [id number] 17:38:26Patient: DAYO MCINTYRE Date/Time06/04/2020 17:22 CDTReason for [...] o acute intracranial abnormality. No intracranial hemorrhage.LOCATION: J83Zejr C T exam was performed according to our departmental dose optimization program, wh ich includes automated exposure control, adjustment of the mA and/or kV accordin g to the patient size and/or use of iterative reconstructive technique. Fin al Dictated by: MD Bhat Melanie CDictated DT/TM: 06/04/2020 5:37 pmS igned by: MD Bhat Melanie CSigned (Electronic Signature): 06/04/2020 5:38 pmXR Ankle Complete 3+ Views [id number] 16:54:38Patient: DAYO MCINTYRE Date/Time06/04/2020 16:40 CDTReason for [...] the ankle and foot.3. Small plantar calcaneal tifafnie ne spur.4. Arterial calcifications.Location: R16 Final Dictated [...] = Lipemia) 0 g/dL 1-2 Comprehensive Metabolic [id number] 16:28:11* Test Item Value Reference Range Interpretation [...] is not provided, and the patient is -Scottish, multiply by 1.212. If sex is not [...] code = Lipemia) 0 g/dL 1-2 Creatine [id number] 16:28:11* Test Item Value Reference Range Interpretation Comments CK (test code = CK) 86 U/L 34-145 Troponin [id number] 16:28:11* Test Item Value Reference Range Interpretation [...] at 0, 3, 6 hours. Comprehensive Metabolic [id number] 16:28:11* Test Item Value Reference Range Interpretation [...] is not provided, and the patient is -Scottish, multiply by 1.212. If sex is not [...] is not provided, and the patient is -Scottish, multiply by 1.212. If sex is not [...] code = Lipemia) 0 g/dL 1-2 Automated [id number] 16:14:12* Test Item Value Reference Range Interpretation Comments Neutro Auto (test code = Neutro Auto) 84.3 % 36.0-70.0 H Lymph Auto (test code = Lymph Auto) 6.7 % 12.0-44.0 L Gaines Auto (test code = Gaines Auto) 5.8 % 0.0-11.0 Eos, Auto (test code = Eos, Auto) 2.2 % 0.0-7.0 Basophil Auto (test code = Basophil Auto) 0.4 % 0.0-2.0 Neutro Absolute (test code = Neutro Absolute) 7.5 x10 1.6-7.4 H Lymph Absolute (test code = Lymph Absolute) .60 x10 .50-4.60 Gaines Absolute (test code = Gaines Absolute) .52 x10 .00-1.20 Eos Absolute (test code = Eos Absolute) 0.20 x10 0.00-0.74 Baso Absolute (test code = Baso Absolute) 0.04 x10 0.00-0.21 IG [id number] 16:14:12* Test Item Value Reference Range Interpretation Comments IG (test code = IG) 0.6 % 0.0-5.0 IG Abs (test code = IG Abs) 0 x10 N Complete Blood Count with [id number] 16:14:11* Test Item Value Reference Range Interpretation [...] Slide Review) Auto Auto Result created by ARABELLA_GARCIAM_SLIDE_REV_AUTO GL_SJM_XN_RFLX nRBC (test code = nRBC) 0 N NRBC Abs (test code = NRBC Abs) 0.00 x10 N Pos Diff XN (test code = Pos Diff XN) A N IPF (test code = IPF) 0 % N POC [id number] 16:00:17* Test Item Value Reference Range Interpretation Comments Glucose POC (test code = Glucose POC) 390 mg/dL 70-115 H If you consider your patient critically ill, the Larry-Accu Check Infrom II meter should not be used for Glucose determination. Draw a venous Glucose and send to the main Lab for analysis. [id number] 20:54:54* Test Item Value Reference Range Interpretation [...] = Plt Estimation) Normal Normal Comprehensive Metabolic [id number] 19:34:58* Test Item Value Reference Range Interpretation [...] = Lipemia) 0 g/dL 1-2 Comprehensive Metabolic [id number] 19:34:58* Test Item Value Reference Range Interpretation [...] is not provided, and the patient is -Scottish, multiply by 1.212. If sex is not [...] = Lipemia) 0 g/dL 1-2 Comprehensive Metabolic [id number] 19:34:58* Test Item Value Reference Range Interpretation [...] is not provided, and the patient is -Scottish, multiply by 1.212. If sex is not [...] is not provided, and the patient is -Scottish, multiply by 1.212. If sex is not [...] 0 g/dL 1-2 Complete Blood Count with [id number] 19:25:22* Test Item Value Reference Range Interpretation [...] code = IPF) 0 % N Automated [id number] 19:25:22* Test Item Value Reference Range Interpretation Comments Neutro Auto (test code = Neutro Auto) 81.8 % 36.0-70.0 H Lymph Auto (test code = Lymph Auto) 10.1 % 12.0-44.0 L Gaines Auto (test code = Gaines Auto) 5.3 % 0.0-11.0 Eos, Auto (test code = Eos, Auto) 1.5 % 0.0-7.0 Basophil Auto (test code = Basophil Auto) 0.5 % 0.0-2.0 Neutro Absolute (test code = Neutro Absolute) 9.2 x10 1.6-7.4 H Lymph Absolute (test code = Lymph Absolute) 1.13 x10 .50-4.60 Gaines Absolute (test code = Gaines Absolute) .59 x10 .00-1.20 Eos Absolute (test code = Eos Absolute) 0.17 x10 0.00-0.74 Baso Absolute (test code = Baso Absolute) 0.06 x10 0.00-0.21 IG [id number] 19:25:22* Test Item Value Reference Range Interpretation Comments IG (test code = IG) 0.8 % 0.0-5.0 IG Abs (test code = IG Abs) 0 x10 N XR Foot Complete 3+ Views [id number] 18:40:44Patient: DAYO MCINTYRE Date/Time05/31/2020 18:32 CDTReason for ExamInjuryReportEXAM: XR Ankle [...] Signature): 6:40 pmXR Ankle Complete 3+ Views [id number] 18:40:44Patient: DAYO MCINTYRE Date/Time05/31/2020 18:32 CDTReason for ExamFallReportEXAM: XR Ankle Complete 3+ Views Right, XR Foot Complete 3+ Views RightHISTORY: FallCOMPARISON: None brett ilable time of interpretation.FINDINGS:Frontal, lateral views of the right foot and ankle are provided.Subacute appearing fracture of the distal fibula with mil d displacement. 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 Overlying swelling is pre sent. Final Dictated by: MD Wang Haider ADictated DT/TM: 2019 6:38 pmSigned by: MD Wang Haider ASigned (Electronic Signature): 05/18 6:40 pmXR Spine Lumbosacral 2 or 3 [id number] 18:38:35Patient: DAYO MCINTYRE Date/Time05/31/2020 18:32 CDTReason for [...] Signature): 05/31/2020 6:38 pmXR Spine Thoracic 2 Owunx1834-90-66 18:38:35Patient: DAYO MCINTYRE Date/Time05/31/2020 18:32 CDTReason for [...] Signature): 05/31/2020 6:38 pmCHEST SINGLE (PORTABLE)2020-03-20 18:05:00 [place] [address] Patient Name: DAYO MCINTYRE MR #: [id number] : 1965 Age/Sex: 54/F Req #: [id number] Adm Physician: Ordered by: PARAM GARCIA MD Report #: [id number] Location: ER Room/Bed: Procedure: [id number] DX/CHEST SIN GLE (PORTABLE) Exam Date: 03/20/20 [...] COPY TO: PARAM GARCIA MD CT BRAIN BM8537-87-45 17:56:00 [place] [address] Patient Name: DAYO MCINTYRE MR #: [id number] : 1965 Age/Sex: 54/F Req #: [id number] Adm Physician: Ordered by: PARAM GARCIA MD Report #: [id number] Location: ER Room/Bed: Procedure: [id number] CT/CT BRAIN WO Exam Date: 03/20/20 Exam [...] Count (test code = 6690-2) 6.35 4.8-10.8 [facility] CenterBlood erythrocytes automated count (number/volume)2020-03-20 17:20:00* Test Item Value Reference Range Interpretation Comments Red Blood Count (test code = 789-8) 3.31 3.6-5.1 [facility] CenterBlood hemoglobin measurement (moles/volume)2020-03-20 17:20:00* Test Item Value Reference Range Interpretation Comments Hemoglobin (test code = 43987-1) 10.6 12.0-16.0 [facility] CenterAutomated blood hematocrit (volume fraction)2020-03-20 17:20:00* Test Item Value Reference Range Interpretation Comments Hematocrit (test code = 4544-3) 33.3 34.2-44.1 [facility] CenterAutomated erythrocyte mean corpuscular asznjw7496-81-61 17:20:00* Test Item Value Reference Range Interpretation Comments Mean Corpuscular Volume (test code = 787-2) 100.6 81-99 [facility] CenterAutomated erythrocyte mean corpuscular hemoglobin (mass per erythrocyte)2020-03-20 17:20:00* Test Item Value Reference Range Interpretation Comments Mean Corpuscular Hemoglobin (test code = 785-6) 32.0 28-32 [facility] CenterAutomated erythrocyte mean corpuscular hemoglobin concentration measurement (mass/volume)2020-03-20 17:20:00* Test Item Value Reference Range Interpretation Comments Mean Corpuscular Hemoglobin Concent (test code = 786-4) 31.8 31-35 [facility] CenterRDW GjeIc-Npq0937-79-03 17:20:00* Test Item Value Reference Range Interpretation Comments Red Cell Distribution Width (test code = 15078-0) 12.5 11.7 -14.4 [facility] CenterAutomated blood platelet count (count/volume)2020-03-20 17:20:00* Test Item Value Reference Range Interpretation Comments Platelet Count (test code = 777-3) 179 140-360 [facility] CenterAutomated blood segmented neutrophil count as percentage of total tesvyukmcj9725-56-47 17:20:00* Test Item Value Reference Range Interpretation Comments Neutrophils (%) (Auto) (test code = 54521-7) 79.2 38.7-80.0 [facility] CenterAutomated blood lymphocyte count as percentage ot total zxztzyxkrn2899-04-40 17:20:00* Test Item Value Reference Range Interpretation Comments Lymphocytes (%) (Auto) (test code = 736-9) 10.9 18.0-39.1 [facility] CenterAutomated blood monocyte count as percentage of total dttukquhop8563-42-09 17:20:00* Test Item Value Reference Range Interpretation Comments Monocytes (%) (Auto) (test code = 5905-5) 5.4 4.4-11.3 [facility] CenterAutomated blood eosinophil count as percentage of total pjnqqtvefx0342-61-32 17:20:00* Test Item Value Reference Range Interpretation Comments Eosinophils (%) (Auto) (test code = 713-8) 3.1 0.0-6.0 [facility] CenterAutomated blood basophil count as percentage of total avkhdrujku3345-54-96 17:20:00* Test Item Value Reference Range Interpretation Comments Basophils (%) (Auto) (test code = 706-2) 0.8 0.0-1.0 [facility] CenterFluoroscopic procedure less than one hour nmdayfer5439-33-42 17:20:00* Test Item Value Reference Range Interpretation Comments IM GRANULOCYTES % (test code = IM GRANULOCYTES %) 0.6 0.0- 1.0 [facility] CenterAutomated blood neutrophil count 2020-03-20 17:20:00* Test Item Value Reference Range Interpretation Comments Neutrophils # (Auto) (test code = 751-8) 5.0 2.1-6.9 [facility] CenterBlood lymphocytes count (number/volume) 2020-03-20 17:20:00* Test Item Value Reference Range Interpretation Comments Lymphocytes # (Auto) (test code = 95210-2) 0.7 1.0-3.2 [facility] CenterBlood monocytes automated count (number/volume)2020-03-20 17:20:00* Test Item Value Reference Range Interpretation Comments Monocytes # (Auto) (test code = 742-7) 0.3 0.2-0.8 [facility] CenterAutomated blood eosinophil count 2020-03-20 17:20:00* Test Item Value Reference Range Interpretation Comments Eosinophils # (Auto) (test code = 711-2) 0.2 0.0-0.4 [facility] CenterAutomated blood basophil count (count/volume)2020-03-20 17:20:00* Test Item Value Reference Range Interpretation Comments Basophils # (Auto) (test code = 704-7) 0.1 0.0-0.1 [facility] CenterFluoroscopic procedure less than one hour pejwdefq0697-30-41 17:20:00* Test Item Value Reference Range Interpretation Comments Absolute Immature Granulocyte (auto (chago t code = Absolute Immature Granulocyte (auto) 0.04 0-0.1 [facility] Hospital[facility]um [facility] plasma sodium measurement (moles/volume)2020-03-20 17:20:00* Test Item Value Reference Range Interpretation Comments Sodium Level (test code = 2951-2) 133 136-145 [facility] Hospitalerum or plasma potassium measurement (moles/volume)2020-03-20 17:20:00* Test Item Value Reference Range Interpretation Comments Potassium Level (test code = 2823-3) 4.8 3.5-5.1 [facility] Hospitalerum or plasma chloride measurement (moles/volume)2020-03-20 17:20:00* Test Item Value Reference Range Interpretation Comments Chloride Level (test code = 2075-0) 91 98-107 [facility] Hospitalerum or plasma carbon dioxide, total measurement (moles/volume)2020-03-20 17:20:00* Test Item Value Reference Range Interpretation Comments Carbon Dioxide Level (test code = 2028-9) 25 22-29 [facility] Hospitalerum or plasma anion yts0208-46-31 17:20:00* Test Item Value Reference Range Interpretation Comments Anion Gap (test code = 63253-7) 21.8 8-16 [facility] Hospitalerum or plasma urea nitrogen measurement (mass/volume)2020-03-20 17:20:00* Test Item Value Reference Range Interpretation Comments Blood Urea Nitrogen (test code = 3094-0) 35 7-26 [facility] Hospitalerum or plasma creatinine measurement (mass/volume)2020-03-20 17:20:00* Test Item Value Reference Range Interpretation Comments Creatinine (test code = 2160-0) 5.67 0.57-1.11 [facility] Hospitalerum or plasma urea nitrogen/creatinine mass qxzcc9487-38-80 17:20:00* Test Item Value Reference Range Interpretation Comments BUN/Creatinine Ratio (test code = 3097-3) 6 6-25 [facility] CenterEstimated glomerular filtration rate (GFR) crxfiajjowdag5780-24-08 17:20:00* Test Item Value Reference Range Interpretation Comments Estimat Glomerular Filtration Rate (test code = 197216672) 8 >60 Ranges were taken from the National Kidney Disease Education Program and the [facility] Kid[facility] Foundation literature.Reference ranges:60 or greater: Gqunlf17-37 ( for 3 consecutive months): Chronic kidney disease 15 or less: Kidney failureEnnis Regional Medical CenterGlucose gkjwfqrmtld9096-27-25 17:20:00* Test Item Value Reference Range Interpretation Comments Glucose Level (test code = RHZ6373) 259 74118 Results repeated and called to ALISA HECTOR at 1837 on 03/20/20 by LAUREL WATSON. Read back and verified.[facility] Hospitalerum or plasma calcium measurement (mass/volume)2020-03-20 17:20:00* Test Item Value Reference Range Interpretation Comments Calcium Level (test code = 90462-2) 8.9 8.4-10.2 [facility] Hospitalerum or plasma total bilirubin measurement (mass/volume)2020-03-20 17:20:00* Test Item Value Reference Range Interpretation Comments Total Bilirubin (test code = 1975-2) 0.5 0.2-1.2 [facility] CenterFluoroscopic procedure less than one hour kzpeyagd7994-49-79 17:20:00* Test Item Value Reference Range Interpretation Comments Aspartate Amino Transf (AST/SGOT) (test code = Aspartate Amino Transf (AST/SGOT)) 20 5-34 [facility] Hospitalerum or plasma alanine aminotransferase measurement (enzymatic activity/volume)2020-03-20 17:20:00* Test Item Value Reference Range Interpretation Comments Alanine Aminotransferase (ALT/SGPT) (test code = 1742-6) 19 0-55 [facility] Hospitalerum or plasma protein measurement (mass/volume)2020-03-20 17:20:00* Test Item Value Reference Range Interpretation Comments Total Protein (test code = 2885-2) 7.5 6.5-8.1 [facility] Hospitalerum or plasma albumin measurement (mass/volume)2020-03-20 17:20:00* Test Item Value Reference Range Interpretation Comments Albumin (test code = 1751-7) 3.3 3.5-5.0 [facility] CenterPlasma globulin measurement (mass/volume) 2020-03-20 17:20:00* Test Item Value Reference Range Interpretation Comments Globulin (test code = 46368-8) 4.2 2.3-3.5 [facility] Hospitalerum or plasma albumin/globulin mass crtno2059-13-21 17:20:00* Test Item Value Reference Range Interpretation Comments Albumin/Globulin Ratio (test code = 1759-0) 0.8 0.8-2.0 [facility] Hospitalerum or plasma alkaline phosphatase measurement (enzymatic activity/volume)2020-03-20 17:20:00* Test Item Value Reference Range Interpretation Comments Alkaline Phosphatase (test code = 6768-6) 292 40-150 [facility] Hospitalerum or plasma creatine kinase measurement (enzymatic activity/volume)2020-03-20 17:20:00* Test Item Value Reference Range Interpretation Comments Creatine Kinase (test code = 2157-6) 102 29-168 [facility] Hospitalerum or plasma creatine kinase MB measurement (mass/volume)2020-03-20 17:20:00* Test Item Value Reference Range Interpretation Comments Creatine Kinase MB (test code = 61189-8) 2.50 0-5.0 [facility] CenterTroponin I measurement by highly sensitive enzyme hwzaktzbtmw8800-28-96 17:20:00* Test Item Value Reference Range Interpretation Comments Troponin I (test code = 14609-2) 0.067 0-0.300 [facility] CenterXR Chest 1 View Mmoykuq0163-35-85 16:51:32Patient: AYESHADAYO ANAYA Date/Time12/21/2019 16:44 CSTReason for ExamChest painReportExam: Chest [...] left pleural effusion. Final Dictated by: MD Jenae, Pee MDictated DT/TM: 12/21/2019 4:50 pmSigned by: MD Emanuel Francesco MSigned (Electronic Signature): 12/21/2019 4:51 pmCT ABDOMEN/PELVIS ML5255-75-48 20:20:00 [place] [address] Patient Name: DAYO MCINTYRE MR #: [id number] : 1965 Age/Sex: 54/F Req #: [id number] Adm Physician: Ordered by: ROSEMARY POLLOCK ACCOUNT MANAGEMENT ASSISTANT Report #: [id number] Location: ER Room/Bed: Procedure: [id number] CT/CT ABDOMEN/PELVIS WO Exam Date: Exam Time: [...] renal disease. No contour abnormalities. 3. Left-sided jzkib-yf-hklzmage pleural effusion, which is partly loculated, with [...] 12/11/19 COPY TO: ROSEMARY POLLOCK NP Bedside Ljuktpz6063-29-89 19:46:00 * Test Item Value Reference Range Interpretation Comments Bedside Glucose (test code = 11947-6) 334 70-120 H Meter ID: [id number] [facility] CenterCapillary blood glucose measurement by glucometer (mass/volume)2019-12-11 18:38:00* Test Item Value Reference Range Interpretation Comments Bedside Glucose (test code = 58905-4) 334 70-120 Meter ID: [id number] Children's Hospitalodium Level 2019-12-11 18:07:00* Test Item Value Reference Range Interpretation Comments Sodium Level (test code = 2951-2) 137 136-145 [facility] CenterPotassium Zdfeq7875-68-08 18:07:00* Test Item Value Reference Range Interpretation Comments Potassium Level (test code = 2823-3) 4.1 3.5-5.1 [facility] CenterChloride Xzqwy7258-08-59 18:07:00* Test Item Value Reference Range Interpretation Comments Chloride Level (test code = 2075-0) 98 98-107 [facility] CenterCarbon Dioxide Nxjvn4702-58-75 18:07:00* Test Item Value Reference Range Interpretation Comments Carbon Dioxide Level (test code = 2028-9) 27 22-29 [facility] CenterAnion Slg5930-51-71 18:07:00* Test Item Value Reference Range Interpretation Comments Anion Gap (test code = 55086-9) 16.1 8-16 H [facility] CenterBlood Urea Dkuhhxte9207-89-69 18:07:00* Test Item Value Reference Range Interpretation Comments Blood Urea Nitrogen (test code = 3094-0) 25 7-26 [facility] CenterCreatinine2020-02-24 18:07:00* Test Item Value Reference Range Interpretation Comments Creatinine (test code = 2160-0) 5.11 0.57-1.11 H [facility] CenterBUN/Creatinine Gwisu8203-13-41 18:07:00* Test Item Value Reference Range Interpretation Comments BUN/Creatinine Ratio (test code = 3097-3) 5 6-25 L [facility] CenterEstimat Glomerular Filtration Rate 2019-12-11 18:07:00* Test Item Value Reference Range Interpretation Comments Estimat Glomerular Filtration Rate (test code = 942767117) 9 >60 L Ranges were taken from the National Kidney Disease Education Program and the [facility] Kidney Foundation literature.Reference ranges:60 or greater: Ercmvt48-49 ( for 3 consecutive months): Chronic kidney disease 15 or less: Kidney failureEnnis Regional Medical CenterGlucose Zpdtp3708-32-98 18:07:00* Test Item Value Reference Range Interpretation Comments Glucose Level (test code = CGV8088) 464 74-118 HH Results repeated and called to RALPH KIMMIE at 1806 on 12/11/19 by LAUREL JOSE . Read back and verified.[facility] CenterCalcium Level 2019-12-11 18:07:00* Test Item Value Reference Range Interpretation Comments Calcium Level (test code = 10919-9) 9.1 8.4-10.2 [facility] CenterTotal Hmqyaoklw9605-48-92 18:07:00* Test Item Value Reference Range Interpretation Comments Total Bilirubin (test code = 1975-2) 0.5 0.2-1.2 [facility] CenterAspartate Amino Transf (AST/SGOT) 2019-12-11 18:07:00* Test Item Value Reference Range Interpretation Comments Aspartate Amino Transf (AST/SGOT) (test code = Aspartate Amino Transf (AST/SGOT)) 24 5-34 [facility] CenterAlanine Aminotransferase (ALT/SGPT) 2019-12-11 18:07:00* Test Item Value Reference Range Interpretation Comments Alanine Aminotransferase (ALT/SGPT) (test code = 1742-6) 16 0-55 [facility] CenterTotal Ihhcglg3322-81-16 18:07:00* Test Item Value Reference Range Interpretation Comments Total Protein (test code = 2885-2) 6.7 6.5-8.1 [facility] CenterAlbumin2020-02-24 18:07:00* Test Item Value Reference Range Interpretation Comments Albumin (test code = 1751-7) 3.3 3.5-5.0 L [facility] CenterGlobulin2020-02-24 18:07:00* Test Item Value Reference Range Interpretation Comments Globulin (test code = 78112-4) 3.4 2.3-3.5 [facility] CenterAlbumin/Globulin Qegxg2430-36-96 18:07:00 * Test Item Value Reference Range Interpretation Comments Albumin/Globulin Ratio (test code = 1759-0) 1.0 0.8-2.0 [facility] CenterAlkaline Hxsqnqtjsfd7978-97-63 18:07:00* Test Item Value Reference Range Interpretation Comments Alkaline Phosphatase (test code = 6768-6) 182 40-150 H [facility] CenterWhite Blood Eidur1910-50-22 17:58:00* Test Item Value Reference Range Interpretation Comments White Blood Count (test code = 6690-2) 8.14 4.8-10.8 [facility] CenterRed Blood Wrktv8986-31-18 17:58:00* Test Item Value Reference Range Interpretation Comments Red Blood Count (test code = 789-8) 3.20 3.6-5.1 L [facility] CenterHemoglobin2020-02-24 17:58:00* Test Item Value Reference Range Interpretation Comments Hemoglobin (test code = 93470-3) 10.6 12.0-16.0 L [facility] CenterHematocrit2020-02-24 17:58:00* Test Item Value Reference Range Interpretation Comments Hematocrit (test code = 4544-3) 32.0 34.2-44.1 L [facility] CenterMean Corpuscular Bywjla3413-66-69 17:58:00* Test Item Value Reference Range Interpretation Comments Mean Corpuscular Volume (test code = 787-2) 100.0 81-99 H [facility] CenterMean Corpuscular Osklredypg1637-77-27 17:58:00* Test Item Value Reference Range Interpretation Comments Mean Corpuscular Hemoglobin (test code = 785-6) 33.1 28-32 H [facility] CenterMean Corpuscular Hemoglobin Concent 2019-12-11 17:58:00* Test Item Value Reference Range Interpretation Comments Mean Corpuscular Hemoglobin Concent (test code = 786-4) 33.1 31-35 [facility] CenterRed Cell Distribution Phoum6810-45-08 17:58:00* Test Item Value Reference Range Interpretation Comments Red Cell Distribution Width (test code = 60622-1) 12.9 11.7 -14.4 [facility] CenterPlatelet Tgvdd0327-56-81 17:58:00* Test Item Value Reference Range Interpretation Comments Platelet Count (test code = 777-3) 222 140-360 [facility] CenterNeutrophils (%) (Auto)2019-12-11 17:58:00 * Test Item Value Reference Range Interpretation Comments Neutrophils (%) (Auto) (test code = 53541-5) 79.2 38.7-80.0 [facility] CenterLymphocytes (%) (Auto)2019-12-11 17:58:00 * Test Item Value Reference Range Interpretation Comments Lymphocytes (%) (Auto) (test code = 736-9) 10.9 18.0-39.1 L [facility] CenterMonocytes (%) (Auto)2019-12-11 17:58:00* Test Item Value Reference Range Interpretation Comments Monocytes (%) (Auto) (test code = 5905-5) 5.3 4.4-11.3 [facility] CenterEosinophils (%) (Auto)2019-12-11 17:58:00 * Test Item Value Reference Range Interpretation Comments Eosinophils (%) (Auto) (test code = 713-8) 2.9 0.0-6.0 [facility] CenterBasophils (%) (Auto)2019-12-11 17:58:00* Test Item Value Reference Range Interpretation Comments Basophils (%) (Auto) (test code = 706-2) 0.7 0.0-1.0 [facility] CenterIM GRANULOCYTES %2019-12-11 17:58:00* Test Item Value Reference Range Interpretation Comments IM GRANULOCYTES % (test code = IM GRANULOCYTES %) 1.0 0.0- 1.0 [facility] CenterNeutrophils # (Auto)2019-12-11 17:58:00* Test Item Value Reference Range Interpretation Comments Neutrophils # (Auto) (test code = 751-8) 6.4 2.1-6.9 [facility] CenterLymphocytes # (Auto)2019-12-11 17:58:00* Test Item Value Reference Range Interpretation Comments Lymphocytes # (Auto) (test code = 33644-7) 0.9 1.0-3.2 L [facility] CenterMonocytes # (Auto)2019-12-11 17:58:00* Test Item Value Reference Range Interpretation Comments Monocytes # (Auto) (test code = 742-7) 0.4 0.2-0.8 [facility] CenterEosinophils # (Auto)2019-12-11 17:58:00* Test Item Value Reference Range Interpretation Comments Eosinophils # (Auto) (test code = 711-2) 0.2 0.0-0.4 [facility] CenterBasophils # (Auto)2019-12-11 17:58:00* Test Item Value Reference Range Interpretation Comments Basophils # (Auto) (test code = 704-7) 0.1 0.0-0.1 [facility] CenterAbsolute Immature Granulocyte (auto 2019-12-11 17:58:00* Test Item Value Reference Range Interpretation Comments Absolute Immature Granulocyte (auto (chago t code = Absolute Immature Granulocyte (auto) 0.08 0-0.1 [facility] CenterMG Mammo Digital Diagnostic Right 2019-11-13 15:51:27Patient: DAYO MCINTYRE Date/Time11/13/2019 14:06 CSTReason for ExamR92.8ReportDictation Location [id number]: Diagnostic mammogram with Tomosynthesis and right breast ultrasound for 6 month follow-up of right breast noduleCOMPARISON: 03/30/2019Routine views of the right breast were obtained and interpreted with the aid of CAD. 2-D and 3-D digital mammography was performed with the [employer] digital breast tomosynthesis unitCOMMENT: Heterogeneously dense fibroglandular [...] BENIGN FINDINGSRECOMMENDATION: Resume yearly screening mammog [facility] Services AccreditationFDA CertifiedBoard Certified Radiologists(ARRT ) Registered [...] (Electronic Signature): 11/13/2019 3:51 pmUS Breast Complete Czspu9892-04-96 15:51:27Patient: DAYO MCINTYRE Date/Time11/13/2019 14:51 CSTReason for ExamR92.8ReportDictation Location [id number]: Diagnostic mammogram with Tomosynthesis and right breast [...] BENIGN FINDINGSRECOMMENDATION: Resume yearly screening mammog [facility] Services AccreditationFDA CertifiedBoard Certified Radiologists(ARRT ) Registered [...] CSign ed (Electronic Signature): 11/13/2019 3:51 pmTroponin D5483-27-50 01:34:48* Test Item Value Reference Range Interpretation Comments Troponin-T (test code = Troponin-T) 109.800 ng/L 0.000-14.000 Critical results called to josiah dimas at 10/26/2019 01:34:41 COACH TOUR DRIVER by og. Read back and verified? yesThe [...] a diagnosis of chronic myocardial injury. Creatine Ceptmw1151-70-73 23:47:02* Test Item Value Reference Range Interpretation Comments CK (test code = CK) 52 U/L 26-192 Creatine Kinase MB lpngitst8265-55-72 23:47:02* Test Item Value Reference Range Interpretation Comments CKMB (test code = CKMB) 1.7 ng/mL 0.0-2.8 CKMB % (test code = CKMB %) 3.3 % 0.0-3.4 Troponin C2100-57-64 23:47:02* Test Item Value Reference Range Interpretation Comments Troponin-T (test code = Troponin-T) 124.600 ng/L 0.000-14.000 Verified by repeat analysis.Critical results called to ruth dempsey at 10/25/2019 23:46:55 COACH TOUR DRIVER by og. Read back and verified? yesThe [...] diagnosis of chronic myocardial injury. Comprehensive Metabolic Pdmgx3921-77-47 23:47:01* Test Item Value Reference Range Interpretation [...] called to ruth dempsey at 10/25/2019 23:46:55 COACH TOUR DRIVER by og. Read back and verified? yes [...] A/G Ratio) 1.5 ratio N Comprehensive Metabolic Qgtxd4618-04-81 23:47:01* Test Item Value Reference Range Interpretation [...] called to ruth dempsey at 10/25/2019 23:46:55 COACH TOUR DRIVER by og. Read back and verified? yes [...] is not provided, and the patient is -[place], multiply by 1.212. If sex is not [...] the National Kidney Foundation, http://nkdep.nih.gov Comprehensive Metabolic Xrjeo6495-18-85 23:47:01* Test Item Value Reference Range Interpretation [...] called to ruth dempsey at 10/25/2019 23:46:55 COACH TOUR DRIVER by og. Read back and verified? yes [...] is not provided, and the patient is -[place], multiply by 1.212. If sex is not [...] is not provided, and the patient is -[place], multiply by 1.212. If sex is not [...] Kidney Foundation, http://nkdep.nih.gov Complete Blood Count with Imxvkkrecjds7136-46-60 23:27:25* Test Item Value Reference Range Interpretation [...] code = IPF) 0 % N Automated Swmzkwkibwws3528-68-02 23:27:25* Test Item Value Reference Range Interpretation Comments Neutro Auto (test code = Neutro Auto) 68.4 % 36.0-70.0 Lymph Auto (test code = Lymph Auto) 20.4 % 12.0-44.0 Gaines Auto (test code = Gaines Auto) 6.7 % 0.0-11.0 Eos, Auto (test code = Eos, Auto) 3.5 % 0.0-7.0 Basophil Auto (test code = Basophil Auto) 0.6 % 0.0-2.0 Neutro Absolute (test code = Neutro Absolute) 4.9 x10 1.6-7.4 Lymph Absolute (test code = Lymph Absolute) 1.45 x10 .50-4.60 Gaines Absolute (test code = Gaines Absolute) .48 x10 .00-1.20 Eos Absolute (test code = Eos Absolute) 0.25 x10 0.00-0.74 Baso Absolute (test code = Baso Absolute) 0.04 x10 0.00-0.21 IG Ohsfl0629-77-35 23:27:25* Test Item Value Reference Range Interpretation Comments IG (test code = IG) 0.4 % 0.0-5.0 IG Abs (test code = IG Abs) 0 x10 N XR Chest 1 View Ihjzmvr8558-63-16 19:24:03Patient: DAYO MCINTYRE Date/Time10/25/2019 18:59 CSTReason for ExamChest painReportLocation: [id number], FRONTAL VIEWHISTORY: Chest painFINDINGS:Since 06/24/2019, this continued left pleural thickening with scarring. The lungs are otherwise clear. The heart size is normal. The bones are unremarkable.IMPRESSION:No evidence of acute cardiopulmonary disease. Final Dictated by: MD Lizeth, JanetmanDictjennie DT/TM: 10/25/2019 7:22 pmSigned by: MD Stanley SankamanSigned (Electronic Signature): 10/25/2019 7:24 [facility] Kvfzpgt5791-73-58 11:50:34* Test Item Value Reference Range Interpretation Comments Glucose POC (test code = Glucose POC) 307 mg/dL 70-115 H If you consider your patient critically ill, the Larry-Accu Check Infrom II meter should not be used for Glucose determination. Draw a venous Glucose and send to the main Lab for analysis. XR Tibia/Fibula Tywn5128-85-21 11:42:15Patient: DAYO MCINTYRE Date/Time10/19/2019 11:26 CSTReason for [...] R16 Final Dictated by: MD Bhat Melanie CDictjennie DT/TM: 10/19/2019 11:41 amSigned by: MD Bhat Melanie CSigned (Electronic Signature): 10/19/2019 11:42 [facility] 2019-10-19 07:43:36* Test Item Value Reference Range Interpretation Comments Glucose POC (test code = Glucose POC) 283 mg/dL 70-115 H If you consider your patient critically ill, the Larry-Accu Check Infrom II meter should not be used for Glucose determination. Draw a venous Glucose and send to the main Lab for analysis. Basic Metabolic [id number] 04:01:39* Test Item Value Reference Range Interpretation [...] called to leeann goodwin at 10/19/2019 04:01:32 COACH TOUR DRIVER by og. Read back and verified? yes Calcium Level (test code = Calcium Level) 9.1 mg/dL 8.3-10.5 Basic Metabolic Jsvxj7202-73-90 04:01:39* Test Item Value Reference Range Interpretation [...] called to leeann goodwin at 10/19/2019 04:01:32 COACH TOUR DRIVER by og. Read back and verified? yes [...] is not provided, and the patient is -[place], multiply by 1.212. If sex is not [...] the National Kidney Foundation, http://nkdep.nih.gov Basic Metabolic Zuevs4916-44-51 04:01:39* Test Item Value Reference Range Interpretation [...] called to leeann goodwin at 10/19/2019 04:01:32 COACH TOUR DRIVER by og. Read back and verified? yes [...] is not provided, and the patient is -[place], multiply by 1.212. If sex is not [...] is not provided, and the patient is -[place], multiply by 1.212. If sex is not [...] the National Kidney Foundation, http://nkdep.nih.gov Partial Thromboplastin Wjth6850-74-97 03:43:07* Test Item Value Reference Range Interpretation Comments Partial Thromboplastin Time (test code = Partial Throm boplastin Time) 76.20 seconds 24.39-37.25 H Delta check investig ated values correlate with patients condition,heparinResults called to and read back by: SEAN Sanchez 10/19/2019 03:43:01 COACH TOUR DRIVER CE Complete Blood Count with Iqfoillogztx0902-66-25 02:40:06* Test Item Value Reference Range Interpretation [...] code = IPF) 0 % N Automated Pkdicblacxzv1017-87-09 02:40:06* Test Item Value Reference Range Interpretation Comments Neutro Auto (test code = Neutro Auto) 64.1 % 36.0-70.0 Lymph Auto (test code = Lymph Auto) 23.8 % 12.0-44.0 Gaines Auto (test code = Gaines Auto) 6.8 % 0.0-11.0 Eos, Auto (test code = Eos, Auto) 4.3 % 0.0-7.0 Basophil Auto (test code = Basophil Auto) 0.7 % 0.0-2.0 Neutro Absolute (test code = Neutro Absolute) 4.4 x10 1.6-7.4 Lymph Absolute (test code = Lymph Absolute) 1.62 x10 .50-4.60 Gaines Absolute (test code = Gaines Absolute) .46 x10 .00-1.20 Eos Absolute (test code = Eos Absolute) 0.29 x10 0.00-0.74 Baso Absolute (test code = Baso Absolute) 0.05 x10 0.00-0.21 IG Sjufl7049-91-58 02:40:06* Test Item Value Reference Range Interpretation Comments IG (test code = IG) 0.3 % 0.0-5.0 IG Abs (test code = IG Abs) 0 x10 N NM Lung Vent/Perf Jtrqwiu5930-50-35 00:36:25Patient: DAYO MCINTYRE Date/Time10/19/2019 00:28 CSTReason for Examr/o DVT;Chest painReportAFTER HOURS SERVICE ON: 10/19/2019 12:33 AMVentilation/Perfusion ScanLocation Code G39Nzrxqru: Chest pain;r/o DVTTechnique: Patient inhaled 22.0 mCI [...] TSigned (E lectronic Signature): 10/19/2019 0:36 amPOC Uygbumj6872-04-69 21:39:36* Test Item Value Reference Range Interpretation Comments Glucose POC (test code = Glucose POC) 330 mg/dL 70-115 H If you consider your patient critically ill, the Larry-Accu Check Infrom II meter should not be used for Glucose determination. Draw a venous Glucose and send to the main Lab for analysis. Troponin [id number] 18:56:37* Test Item Value Reference Range Interpretation Comments Troponin-T (test code = Troponin-T) 129.500 ng/L 0.000-14.000 Critical results called to Lurdes at 10/18/2019 18:56:18 COACH TOUR DRIVER by EO. Read back and verified? YESThe [...] myocardial injury. US Lower Ext Venous Duplex Zqyquynur1826-87-20 18:54:39Patient: DAYO MCINTYRE Date/Time10/18/2019 18:49 CSTReason for [...] Contributor_systemGODWIN CRIBE_CTZDictated DT/TM: 10/18/2019 6:54 pmSigned by: Contributor_systemJOSIAS BE_CTZSigned (Electronic Signature): 10/18/2019 6:54 pmComprehensive Metabolic [id number] 15:09:47* Test Item Value Reference Range Interpretation [...] is not provided, and the patient is -[place], multiply by 1.212. If sex is not [...] by the National Kidney Foundation, http://nkdep.nih.gov Creatine Gtuvkn3414-99-08 15:09:47* Test Item Value Reference Range Interpretation Comments CK (test code = CK) 65 U/L 26-192 Comprehensive Metabolic Mkvef5317-42-19 15:09:47* Test Item Value Reference Range Interpretation [...] is not provided, and the patient is -[place], multiply by 1.212. If sex is not [...] National Kidney Foundation, http://nkdep.nih.gov Creatine Kinase MB lfctdsss6707-02-15 15:09:47* Test Item Value Reference Range Interpretation Comments CKMB (test code = CKMB) 1.8 ng/mL 0.0-2.8 CKMB % (test code = CKMB %) 2.8 % 0.0-3.4 Pro B Natriuretic Kjpwavg9435-49-46 15:09:47* Test Item Value Reference Range Interpretation Comments NT-proBNP (test code = NT-proBNP) 41770 pg/mL 0-124 H Troponin [id number] 15:09:47* Test Item Value Reference Range Interpretation Comments Troponin-T (test code = Troponin-T) 142.300 ng/L 0.000-14.000 Attempted to report critical trop to assigned nurse, charge nurse, and Dr. No answer for assigned extension numbers. @ 1508 TAThe CV of the assay at 99th [...] diagnosis of chronic myocardial injury. Comprehensive Metabolic Nddio5200-50-54 15:09:47* Test Item Value Reference Range Interpretation [...] is not provided, and the patient is -[place]ish, multiply by 1.212. If sex is not [...] is not provided, and the patient is -[place], multiply by 1.212. If sex is not [...] National Kidney Foundation, http://nkdep.nih.gov Prothrombin Time and ERW8903-29-73 14:40:53* Test Item Value Reference Range Interpretation Comments Prothrombin Time (test code = Prothrombin Time) 11.6 seconds 9.8-13 .4 INR (test code = INR) 1.0 ratio 0.6-1.2 Partial Thromboplastin Iaro7440-77-03 14:40:53* Test Item Value Reference Range Interpretation Comments Partial Thromboplastin Time (test code = Partial Throm boplastin Time) 31.60 seconds 24.39-37.25 Complete Blood Count with Fpuarwhxtjcm4700-93-79 14:11:10* Test Item Value Reference Range Interpretation [...] code = IPF) 0 % N Automated Usmwrglatqqk2350-66-77 14:11:10* Test Item Value Reference Range Interpretation Comments Neutro Auto (test code = Neutro Auto) 77.9 % 36.0-70.0 H Lymph Auto (test code = Lymph Auto) 12.9 % 12.0-44.0 Gaines Auto (test code = Gaines Auto) 5.7 % 0.0-11.0 Eos, Auto (test code = Eos, Auto) 2.6 % 0.0-7.0 Basophil Auto (test code = Basophil Auto) 0.5 % 0.0-2.0 Neutro Absolute (test code = Neutro Absolute) 6.2 x10 1.6-7.4 Lymph Absolute (test code = Lymph Absolute) 1.03 x10 .50-4.60 Gaines Absolute (test code = Gaines Absolute) .45 x10 .00-1.20 Eos Absolute (test code = Eos Absolute) 0.21 x10 0.00-0.74 Baso Absolute (test code = Baso Absolute) 0.04 x10 0.00-0.21 IG Kakss2594-79-00 14:11:10* Test Item Value Reference Range Interpretation Comments IG (test code = IG) 0.4 % 0.0-5.0 IG Abs (test code = IG Abs) 0 x10 N XR Chest 1 View Ujvfpcl3060-35-21 13:40:30Patient: DAYO MCINTYRE Date/Time10/18/2019 13:34 CSTReason for [...] Adam FSigned (Electronic Signature): 10/18/2019 1:40 pmPOC Ukyolcy7182-76-17 17:02:17* Test Item Value Reference Range Interpretation Comments Glucose POC (test code = Glucose POC) 338 mg/dL 70-115 H If you consider your patient critically ill, the Larry-Accu Check Infrom II meter should not be used for Glucose determination. Draw a venous Glucose and send to the main Lab for analysis. POC Mfgfcnv2455-31-73 07:53:49* Test Item Value Reference Range Interpretation Comments Glucose POC (test code = Glucose POC) 227 mg/dL 70-115 H If you consider your patient critically ill, the Larry-Accu Check Infrom II meter should not be used for Glucose determination. Draw a venous Glucose and send to the main Lab for analysis. POC Bvjkmvx0210-65-23 20:30:47* Test Item Value Reference Range Interpretation Comments Glucose POC (test code = Glucose POC) 168 mg/dL 70-115 H If you consider your patient critically ill, the Larry-Accu Check Infrom II meter should not be used for Glucose determination. Draw a venous Glucose and send to the main Lab for analysis. Hepatitis B Surface Yuujyrc6338-03-08 19:04:36* Test Item Value Reference Range Interpretation Comments Hep Bs Ag (test code = Hep Bs Ag) Nonreactive Non Reactive POC Omjnjcl2224-99-73 16:30:20* Test Item Value Reference Range Interpretation Comments Glucose POC (test code = Glucose POC) 201 mg/dL 70-115 H If you consider your patient critically ill, the Larry-Accu Check Infrom II meter should not be used for Glucose determination. Draw a venous Glucose and send to the main Lab for analysis. NM Myocardial SPECT Rest and Lnzemr1357-37-57 16:23:34Patient: DAYO MCINTYRE Date/Time06/26/2019 12:00 CDTReason for ExamAbnormal EKGReportNKING'S DA[facility] [facility] GATED SPECT MYOCARDIAL PERFUSION STUDY AT [...] SatheeshaSigned (Electronic Signatur e): 06/26/2019 4:23 pmPOC Adpeaou7863-12-69 06:44:49* Test Item Value Reference Range Interpretation Comments Glucose POC (test code = Glucose POC) 188 mg/dL 70-115 H Notify RN or MDIf you consider your patient critically ill, the Larry-Accu Check Infrom II meter should not be used for Glucose determination. Draw a venous Glucose and send to the main Lab for analysis. POC Mbepiri2158-57-05 21:05:51* Test Item Value Reference Range Interpretation Comments Glucose POC (test code = Glucose POC) 260 mg/dL 70-115 H Notify RN or MDIf you consider your patient critically ill, the Larry-Accu Check Infrom II meter should not be used for Glucose determination. Draw a venous Glucose and send to the main Lab for analysis. POC Gmuurao5091-84-16 16:07:45* Test Item Value Reference Range Interpretation Comments Glucose POC (test code = Glucose POC) 185 mg/dL 70-115 H If you consider your patient critically ill, the Larry-Accu Check Infrom II meter should not be used for Glucose determination. Draw a venous Glucose and send to the main Lab for analysis. POC Rcysxrp5708-89-51 11:47:48* Test Item Value Reference Range Interpretation Comments Glucose POC (test code = Glucose POC) 218 mg/dL 70-115 H If you consider your patient critically ill, the Larry-Accu Check Infrom II meter should not be used for Glucose determination. Draw a venous Glucose and send to the main Lab for analysis. Pro B Natriuretic Vzhnnvu4791-01-13 09:31:58* Test Item Value Reference Range Interpretation Comments NT-proBNP (test code = NT-proBNP) 75764 pg/mL 0-124 H POC Sfpfgeo0211-75-10 07:25:48* Test Item Value Reference Range Interpretation Comments Glucose POC (test code = Glucose POC) 207 mg/dL 70-115 H If you consider your patient critically ill, the Larry-Accu Check Infrom II meter should not be used for Glucose determination. Draw a venous Glucose and send to the main Lab for analysis. Thyroid Stimulating Uyusvdx3360-37-93 04:42:22* Test Item Value Reference Range Interpretation Comments TSH (test code = TSH) 4.100 mIU/mL 0.270-4.200 Lipid Uxzrs0139-63-32 04:36:02* Test Item Value Reference Range Interpretation Comments Cholesterol Total (test code = Cholesterol Total) 148 mg/dL 0-20 0 RISK OF HEART DISEASEPublished by [employer] Analyte Optimal Borderline Increased RiskCHOL [...] calculation is LDL/HDL Ratio=LDL Calc/HDL Chol Magnesium Joake3291-36-36 04:36:02* Test Item Value Reference Range Interpretation Comments Magnesium Level (test code = Magnesium Level) 2.4 mg/dL 1.7-2.5 Lipid Yqgtt4425-75-62 04:36:02* Test Item Value Reference Range Interpretation Comments Cholesterol Total (test code = Cholesterol Total) 148 mg/dL 0-20 0 RISK OF HEART DISEASEPublished by [employer] Analyte Optimal Borderline Increased RiskCHOL [...] calculation is LDL/HDL Ratio=LDL Calc/HDL Chol Lipid Ansjd6968-55-77 04:36:02* Test Item Value Reference Range Interpretation Comments Cholesterol Total (test code = Cholesterol Total) 148 mg/dL 0-20 0 RISK OF HEART DISEASEPublished by [employer] Analyte Optimal Borderline Increased RiskCHOL [...] is LDL/HDL Ratio=LDL Calc/HDL Chol Comprehensive Metabolic Jojqq6538-31-78 04:36:01* Test Item Value Reference Range Interpretation [...] A/G Ratio) 1.7 ratio N Comprehensive Metabolic Ccnsk5896-89-87 04:36:01* Test Item Value Reference Range Interpretation [...] is not provided, and the patient is -[place]ish, multiply by 1.212. If sex is not [...] the National Kidney Foundation, http://nkdep.nih.gov Comprehensive Metabolic Bvrmg7155-16-70 04:36:01* Test Item Value Reference Range Interpretation [...] is not provided, and the patient is -[place], multiply by 1.212. If sex is not [...] is not provided, and the patient is -[place]ish, multiply by 1.212. If sex is not [...] the National Kidney Foundation, http://nkdep.nih.gov Comprehensive Metabolic Gbmsk5010-43-27 04:36:01* Test Item Value Reference Range Interpretation [...] is not provided, and the patient is -[place]ish, multiply by 1.212. If sex is not [...] is not provided, and the patient is -[place]ish, multiply by 1.212. If sex is not [...] the National Kidney Foundation, http://nkdep.nih.gov Comprehensive Metabolic Nbbxv2719-44-42 04:36:01* Test Item Value Reference Range Interpretation [...] is not provided, and the patient is -[place]ish, multiply by 1.212. If sex is not [...] is not provided, and the patient is -[place]ish, multiply by 1.212. If sex is not [...] by the National Kidney Foundation, http://nkdep.nih.gov Creatine Qdvkwp1359-93-07 04:34:26* Test Item Value Reference Range Interpretation Comments CK (test code = CK) 44 U/L 26-192 Creatine Jplvcp5498-75-77 04:34:26* Test Item Value Reference Range Interpretation Comments CK (test code = CK) 44 U/L 39-308 Referenc e range changed due to change in patient's sex at 13:35:26. Normal Low changed from 26 to 39. Normal High changed from 192 to 308. Result flag not changed. Creatine Joztuh1887-59-18 04:34:26* Test Item Value Reference Range Interpretation [...] Result flag not changed. Creatine Kinase MB eziljnlo6719-21-39 04:32:51* Test Item Value Reference Range Interpretation Comments CKMB (test code = CKMB) 1.5 ng/mL 0.0-2.8 Creatine Kinase MB spicxpjv4489-12-09 04:32:51* Test Item Value Reference Range Interpretation Comments CKMB (test code = CKMB) 1.5 ng/mL 0.0-2.8 CKMB % (test code = CKMB %) 3.4 % 0.0-3.4 Creatine Kinase MB pcvjarhq5229-10-38 04:32:51* Test Item Value Reference Range Interpretation Comments CKMB (test code = CKMB) 1.5 ng/mL 0.0-4.9 Refe rence range changed due to change in patient's sex at 13:35:26. Normal High changed from 2.8 to 4.9. Result flag not changed. CKMB % (test code = CKMB %) 3.4 % 0.0-3.4 Creatine Kinase MB cnvmkvjq1252-24-80 04:32:51* Test Item Value Reference Range Interpretation [...] = CKMB %) 3.4 % 0.0-3.4 Hemoglobin U5e9279-98-06 04:11:56* Test Item Value Reference Range Interpretation Comments Hemoglobin A1c (test code = Hemoglobin A1c) 8.1 % 4.8-5.9 H Non Diabetic 4.8- 5.9%Diabetic <7.0% Complete Blood Count without Npap3093-73-25 04:05:36* Test Item Value Reference Range Interpretation [...] 0 % N Complete Blood Count without Hdub6961-02-00 04:05:36* Test Item Value Reference Range Interpretation [...] 0 % N Complete Blood Count without Vrmp9636-05-74 04:05:36* Test Item Value Reference Range Interpretation [...] code = IPF) 0 % N Troponin [id number] 01:28:22* Test Item Value Reference Range Interpretation [...] RS_. Read back and verified? _yes Troponin [id number] 01:28:22* Test Item Value Reference Range Interpretation [...] of the assay at 99th percentile for [facility] male and female patient population is < [...] a diagnosis of chronic myocardial injury. Troponin [id number] 01:28:22* Test Item Value Reference Range Interpretation [...] a diagnosis of chronic myocardial injury. POC Achqdzn6429-00-30 00:40:44* Test Item Value Reference Range Interpretation Comments Glucose POC (test code = Glucose POC) 342 mg/dL 70-115 H Notify RN or If you consider your patient critically ill, the Larry-Accu Check Infrom II meter should not be used for Glucose determination. Draw a venous Glucose and send to the main Lab for analysis. Troponin [id number] 22:19:18* Test Item Value Reference Range Interpretation [...] _RS. Read back and verified? _yes Troponin [id number] 22:19:18* Test Item Value Reference Range Interpretation [...] a diagnosis of chronic myocardial injury. Troponin [id number] 22:19:18* Test Item Value Reference Range Interpretation [...] diagnosis of chronic myocardial injury. Comprehensive Metabolic Cyaez4263-28-72 19:59:38* Test Item Value Reference Range Interpretation [...] is not provided, and the patient is -[place], multiply by 1.212. If sex is not [...] the National Kidney Foundation, http://nkdep.nih.gov Comprehensive Metabolic Klbkk8472-97-04 19:59:38* Test Item Value Reference Range Interpretation [...] is not provided, and the patient is -[place], multiply by 1.212. If sex is not [...] Ranges recommended by the National Kidney Foundation, http://nkdep.[facility].gov Creatine Ygxvxt0868-51-51 19:59:38* Test Item Value Reference Range Interpretation Comments CK (test code = CK) 60 U/L 26-192 Creatine Kinase MB jwaofwiw7343-91-05 19:59:38* Test Item Value Reference Range Interpretation Comments CKMB (test code = CKMB) 2.0 ng/mL 0.0-2.8 CKMB % (test code = CKMB %) 3.3 % 0.0-3.4 Pro B Natriuretic Djiokmk8689-48-03 19:59:38* Test Item Value Reference Range Interpretation Comments NT-proBNP (test code = NT-proBNP) >81950 pg/mL 0-124 H Comprehensive Metabolic Rzrxy9198-05-13 19:59:38* Test Item Value Reference Range Interpretation [...] is not provided, and the patient is -[place], multiply by 1.212. If sex is not [...] is not provided, and the patient is -[place]ish, multiply by 1.212. If sex is not [...] by the National Kidney Foundation, http://nkdep.nih.gov Troponin [id number] 19:59:38* Test Item Value Reference Range Interpretation [...] Read back and verified? YES Comprehensive Metabolic Fqpsy3616-80-88 19:59:38* Test Item Value Reference Range Interpretation [...] is not provided, and the patient is -[place]ish, multiply by 1.212. If sex is not [...] is not provided, and the patient is -[place], multiply by 1.212. If sex is not [...] by the National Kidney Foundation, http://nkdep.nih.gov Creatine Rtyivz4267-42-51 19:59:38* Test Item Value Reference Range Interpretation Comments CK (test code = CK) 60 U/L 39-308 Referenc e range changed due to change in patient's sex at 13:35:29. Normal Low changed from 26 to 39. Normal High changed from 192 to 308. Result flag not changed. Creatine Kinase MB jzzrubmh8546-85-21 19:59:38* Test Item Value Reference Range Interpretation Comments CKMB (test code = CKMB) 2.0 ng/mL 0.0-4.9 Refe rence range changed due to change in patient's sex at 13:35:29. Normal High changed from 2.8 to 4.9. Result flag not changed. CKMB % (test code = CKMB %) 3.3 % 0.0-3.4 Troponin [id number] 19:59:38* Test Item Value Reference Range Interpretation [...] diagnosis of chronic myocardial injury. Comprehensive Metabolic Aarfz9588-67-34 19:59:38* Test Item Value Reference Range Interpretation [...] is not provided, and the patient is -[place]ish, multiply by 1.212. If sex is not [...] is not provided, and the patient is -[place], multiply by 1.212. If sex is not [...] by the National Kidney Foundation, http://nkdep.nih.gov Creatine Dodiwi5002-64-78 19:59:38* Test Item Value Reference Range Interpretation [...] Result flag not changed. Creatine Kinase MB krjqpsde3499-24-92 19:59:38* Test Item Value Reference Range Interpretation [...] = CKMB %) 3.3 % 0.0-3.4 Troponin [id number] 19:59:38* Test Item Value Reference Range Interpretation [...] of chronic myocardial injury. Prothrombin Time and [id number] 19:24:48* Test Item Value Reference Range Interpretation Comments Prothrombin Time (test code = Prothrombin Time) 11.2 seconds 9.8-13 .4 INR (test code = INR) 1.0 ratio 0.6-1.2 Partial Thromboplastin Gkve5487-04-04 19:24:48* Test Item Value Reference Range Interpretation Comments Partial Thromboplastin Time (test code = Partial Throm boplastin Time) 32.40 seconds 24.39-37.25 Automated Nhvwephjprqj7787-52-87 19:13:40* Test Item Value Reference Range Interpretation Comments Neutro Auto (test code = Neutro Auto) 72.3 % 36.0-70.0 H Lymph Auto (test code = Lymph Auto) 17.1 % 12.0-44.0 Gaines Auto (test code = Gaines Auto) 6.5 % 0.0-11.0 Eos, Auto (test code = Eos, Auto) 3.1 % 0.0-7.0 Basophil Auto (test code = Basophil Auto) 0.5 % 0.0-2.0 Neutro Absolute (test code = Neutro Absolute) 5.4 x10 1.6-7.4 Lymph Absolute (test code = Lymph Absolute) 1.28 x10 .50-4.60 Gaines Absolute (test code = Gaines Absolute) .49 x10 .00-1.20 Eos Absolute (test code = Eos Absolute) 0.23 x10 0.00-0.74 Baso Absolute (test code = Baso Absolute) 0.04 x10 0.00-0.21 IG Sgdlk1673-50-72 19:13:40* Test Item Value Reference Range Interpretation Comments IG (test code = IG) 0.5 % 0.0-5.0 IG Abs (test code = IG Abs) 0 x10 N Complete Blood Count with Lfesrxcxafrt3113-63-43 19:13:39* Test Item Value Reference Range Interpretation [...] 0 % N Complete Blood Count with Eofkoalgdrls6164-19-43 19:13:39* Test Item Value Reference Range Interpretation [...] 0 % N Complete Blood Count with Grariwjrmcoh8320-39-04 19:13:39* Test Item Value Reference Range Interpretation [...] 0 % N XR Chest 1 View Ndkempo0563-76-35 19:07:54Patient: DAYO MCINTYRE Date/Time06/24/2019 18:44 CDTReason for ExamChest painReportEXAM: Portable chest one view.Location code: L3Psctpsw: Chest painCOMPARISON: None available.COMMENT: AP portableview of [...] (Electronic Signature): 06/24/2019 7:07 pm- US ABDOMEN [id number] 03:46:00 Name: DAYO MCINTYRE [facility] : 1965 Age/S: 53 / F [address] [facility] Unit #: [id number] Loc: [place] [address] Phys: Vilma Villarreal MD Acct: [id number] Dis Date: Status: REG ER PHONE #: [phone] Exam Date: 05/09/2019 0324 FAX #: [phone] Reason: abd duran EXAMS: CPT CODE: [id number] US ABDOMEN LTD 45286 DICTATION LOCATION: H48 HISTORY: Female, 53 years [...] Technologist: LEESA DAWN RDMS Trnscb Date/Time: 05/09/2019 (034) t.CLW Orig Print D/T: S: 05/09/2019 (0349) Probe: PAGE 1 Signed Report - CT ABD PELVIS W/RPRT8036-22-42 02:33:00 Name: DAYO MCINTYRE [facility] : 1965 Age/S: 53 / F [address] [facility] Unit #: [id number] Loc: [place] [address] Phys: Vilma Villarreal MD Acct: [id number] Dis Date: Status: REG ER PHONE #: [phone] Exam Date: 05/09/2019 015 FAX #: [phone] Reason: flank/rlq pain EXAMS: CPT CODE: [id number] CT ABD PELVIS W/CONT 76925 CT abdomen and pelvis with IV contrast. [...] 1 Signed Report (CONTINUED) Name: DAYO MCINTYRE [facility] : 1965 Age/S: 53 / F [address] [facility] [id number] Loc: [place] [address] Phys: Vilma Villarreal MD Acct: [id number] Dis Date: Status: REG ER PHONE #: [phone] Exam Date: 05/09/2019 0155 FAX #: [phone] Reason: flank/rlq pain EXAMS: CPT CODE: [id number] CT ABD PELVIS W/CONT 36040 < Continued> at 0233 Reported and signed by: Meagan Larson M.D. CC: Vilma Villarreal MD; Mike Forbes Technologist:ANNA BRAND CTDI: DLP: Trnscb Date/Time: 05/09/2019 (023) t.SDR.SR31 Orig Print D/T: S: 05/09/2019 (023) PAGE 2 Signed Report BASIC METABOLIC [id number] 00:01:00* Test Item Value Reference Range Interpretation [...] CA) 8.4 mg/dL 8.5-10.1 L HEPATIC FUNCTION [id number] 00:01:00* Test Item Value Reference Range Interpretation [...] reference range due to change in reagent. [id number] 00:01:00* Test Item Value Reference Range Interpretation Comments LIPASE (test code = LIP) 62 U/L 73.0-393.0 L HCG SERUM [id number] 00:01:00* Test Item Value Reference Range Interpretation Comments HCG SERUM QUAL (test code = HCGQL) NEGATIVE NEGATIVE This HCGQL test is NOT applicable for MALE patients.Check with nurse about probable order error.If Tumor Marker Test needed, nurse should order test "HCGTU"(Test #550.33581) [id number] 00:01:00* Test Item Value Reference Range Interpretation Comments TROPONIN-I (test code = TROPI) <0.015 ng/mL 0-0.045 N BASIC METABOLIC [id number] 23:25:00* Test Item Value Reference Range Interpretation [...] code = CA) mg/dL 8.5-10.1 HEPATIC FUNCTION [id number] 23:25:00* Test Item Value Reference Range Interpretation [...] TOTAL (test code = ALKP) IUnit/L 45-117 [id number] 23:25:00* Test Item Value Reference Range Interpretation Comments LIPASE (test code = LIP) U/L 73.0-393.0 HCG SERUM [id number] 23:25:00* Test Item Value Reference Range Interpretation Comments HCG SERUM QUAL (test code = HCGQL) NEGATIVE NEGATIVE This HCGQL test is NOT applicable for MALE patients.Check with nurse about probable order error.If Tumor Marker Test needed, nurse should order test "HCGTU"(Test #550.11063) [id number] 23:25:00* Test Item Value Reference Range Interpretation Comments TROPONIN-I (test code = TROPI) ng/mL 0-0.045 PROTHROMBIN [id number] 22:47:00* Test Item Value Reference Range Interpretation [...] (2.5-3.5) IS PATIENT ON ANTICOAGULANTS? NTHROMBOPLASTIN TIME [id number] 22:47:00* Test Item Value Reference Range Interpretation Comments THROMBOPLASTIN TIME PARTIAL (test code = PTT) 31.7 seconds 25.0-36. 5 N IS PATIENT ON ANTICOAGULANTS? NCBC W/O [id number] 22:37:00* Test Item Value Reference Range Interpretation [...] fL 6.7-11.0 N - XR CHEST 1 [id number] 22:25:00 FAX: Vilma Villarreal MD [phone] [place]: St: [facility] FAX: Mike Orozco [phone] Name: DAYO MCINTYRE [facility] : 1965 Age/S: 53/F [address] [facility] Unit #: [id number] Loc: [place] [address] Phys: Vilma Vilalrreal MD Acct: [id number] Dis Date: Status: REG ER PHONE #: [phone] Exam Date: 05/08/20192209 FAX #: [phone] Reason: Abdominal Pain EXAMS: CPT CODE: [id number] XR CHEST 1 V 10857 REASON FOR EXAM: Abdominal Pain Exam Order Date: 05/08/2019 9:42 PM Ordering M.DMaite: Vilma Villarreal MD PROCEDURE: - XR CHEST [...] are unchanged from the previous study. at 6135 Reported and signed by: Jairon Biswas MD CC: Vilma Villarreal MD; Mike Forbes Technologist: MARCELO MELENDEZ; RT Galo(R Trnscrd Date/Time/By: 05/08/2019 (2224) : By: [email or web address] Orig Print D/T: S: 05/08/2019 (0423) PAGE 1 Signed Report [id number] 20:25:00* Test Item Value Reference Range Interpretation Comments GLUBED (test code = GLUBED) 276 mg/dL 74-106 H Performed by certified power system operator at [facility] [id number] 18:02:00* Test Item Value Reference Range Interpretation Comments GLUBED (test code = GLUBED) 242 mg/dL 74-106 H Performed by certified power system operator at [facility] [id number] 11:59:00* Test Item Value Reference Range Interpretation Comments GLUBED (test code = GLUBED) 254 mg/dL 74-106 H Performed by certified power system operator at [facility] CBC W/AUTO [id number] 07:45:00* Test Item Value Reference Range Interpretation [...] (test code = MDIFF) NO BASIC METABOLIC [id number] 07:44:00* Test Item Value Reference Range Interpretation [...] code = CA) 9.0 mg/dL 8.5-10.1 N [id number] 07:44:00* Test Item Value Reference Range Interpretation Comments PHOSPHORUS (test code = PHOS) 6.3 mg/dL 2.5-4.9 H [id number] 07:44:00* Test Item Value Reference Range Interpretation Comments MAGNESIUM (test code = MAG) 2.8 mg/dL 1.8-2.4 H [id number] 07:35:00* Test Item Value Reference Range Interpretation Comments GLUBED (test code = GLUBED) 190 mg/dL 74-106 H Performed by certified power system operator at [facility] [id number] 20:29:00* Test Item Value Reference Range Interpretation Comments GLUBED (test code = GLUBED) 171 mg/dL 74-106 H Performed by certified power system operator at [facility] [id number] 16:27:00* Test Item Value Reference Range Interpretation Comments GLUBED (test code = GLUBED) 213 mg/dL 74-106 H Performed by certified power system operator at [facility] - MRI L-SPINE W/O [id number] 13:20:00 FAX: Jatinder Deras MD [place]: B St: ADM FAX: Hailee Chase NP [phone] FAX: Mike Orozco [phone] Name: DAYO MCINTYRE [facility] : 1965 Age/S: 53/F [address] Unit #: [id number] Loc: [address] [place] [address] Phys: Hailee Chase NP Acct: [id number] Dis Date: Status: ADM IN ONE #: [phone] Exam Date: 04/20/2019 1052 FAX #: [phone] Reason: BACK PAIN EXAMS: CPT CODE: [id number] MR I L-SPINE W/O CONT 70928 EXAM: MRI of t he lumbar spine [...] Technologist: Dana Maldonado)(MR) Trnscrd Date/Time/By: 04/20/20 19 (6510) : By: BrandiGRW Orig Print D/T: S: 04/20/2019 (9528) PAGE 1 Signed Report [id number] 11:53:00* Test Item Value Reference Range Interpretation Comments GLUBED (test code = GLUBED) 256 mg/dL 74-106 H Performed by certified power system operator at [facility] [id number] 08:58:00* Test Item Value Reference Range Interpretation Comments GLUBED (test code = GLUBED) 179 mg/dL 74-106 H Performed by certified power system operator at [facility] BASIC METABOLIC [id number] 08:06:00* Test Item Value Reference Range Interpretation [...] CS 0347 [place] IS AWARE V.LAB.CS1 118775UDPMS METABOLIC [id number] 08:00:00* Test Item Value Reference Range Interpretation [...] CS 0347 [place] V.LAB.1 [id number] 20:27:00* Test Item Value Reference Range Interpretation Comments GLUBED (test code = GLUBED) 173 mg/dL 74-106 H Performed by certified power system operator at [facility] [id number] 16:37:00* Test Item Value Reference Range Interpretation Comments GLUBED (test code = GLUBED) 321 mg/dL 74-106 H Performed by certified power system operator at [facility] [id number] 07:44:00* Test Item Value Reference Range Interpretation Comments GLUBED (test code = GLUBED) 164 mg/dL 74-106 H Performed by certified power system operator at [facility] BASIC METABOLIC [id number] 05:33:00* Test Item Value Reference Range Interpretation [...] code = CA) 9.0 mg/dL 8.5-10.1 N [id number] 05:33:00* Test Item Value Reference Range Interpretation Comments PHOSPHORUS (test code = PHOS) 6.1 mg/dL 2.5-4.9 H [id number] 05:33:00* Test Item Value Reference Range Interpretation Comments MAGNESIUM (test code = MAG) 2.9 mg/dL 1.8-2.4 H CBC W/O [id number] 05:11:00* Test Item Value Reference Range Interpretation [...] code = MPV) 9.7 fL 6.7-11.0 N [id number] 20:07:00* Test Item Value Reference Range Interpretation Comments GLUBED (test code = GLUBED) 125 mg/dL 74-106 H Performed by certified power system operator at [facility] [id number] 16:13:00* Test Item Value Reference Range Interpretation Comments GLUBED (test code = GLUBED) 221 mg/dL 74-106 H Performed by certified power system operator at [facility] [id number] 11:26:00* Test Item Value Reference Range Interpretation Comments GLUBED (test code = GLUBED) 148 mg/dL 74-106 H Performed by certified power system operator at [facility] BASIC METABOLIC [id number] 08:56:00* Test Item Value Reference Range Interpretation [...] code = CA) 9.3 mg/dL 8.5-10.1 N [id number] 07:37:00* Test Item Value Reference Range Interpretation Comments GLUBED (test code = GLUBED) 214 mg/dL 74-106 H Performed by certified power system operator at [facility] [id number] 20:14:00* Test Item Value Reference Range Interpretation Comments GLUBED (test code = GLUBED) 129 mg/dL 74-106 H Performed by certified power system operator at [facility] [id number] 16:50:00* Test Item Value Reference Range Interpretation Comments GLUBED (test code = GLUBED) 255 mg/dL 74-106 H Performed by certified power system operator at [facility] [id number] 07:51:00* Test Item Value Reference Range Interpretation Comments GLUBED (test code = GLUBED) 88 mg/dL 74-106 N Performed by certified power system operator at [facility] [id number] 07:22:00* Test Item Value Reference Range Interpretation Comments GLYCOSYLATED HEMOGLOBIN (HA1C) (test code = GLYHGB) 8.2 % HbA1 4. 8-6.0 H ESTIMATED AVERAGE GLUCOSE (test code = EAG) 189 MG/DL COMPREHENSIVE METABOLIC [id number] 05:57:00* Test Item Value Reference Range Interpretation [...] This LDL result is a direct measurement.========= [id number] 05:57:00* Test Item Value Reference Range Interpretation Comments PHOSPHORUS (test code = PHOS) 8.3 mg/dL 2.5-4.9 H [id number] 05:57:00* Test Item Value Reference Range Interpretation Comments AMYLASE (test code = CASTRO) 24 Unit/L 25-115 L [id number] 05:57:00* Test Item Value Reference Range Interpretation Comments MAGNESIUM (test code = MAG) 2.8 mg/dL 1.8-2.4 H THYROID PROFILE [id number] 05:57:00* Test Item Value Reference Range Interpretation [...] HYPER : < 0.35 mIU/mL COMPREHENSIVE METABOLIC [id number] 05:37:00* Test Item Value Reference Range Interpretation [...] LDL (test code = LDL) mg/dL 100-129 [id number] 05:37:00* Test Item Value Reference Range Interpretation Comments PHOSPHORUS (test code = PHOS) mg/dL 2.5-4.9 [id number] 05:37:00* Test Item Value Reference Range Interpretation Comments AMYLASE (test code = CASTRO) Unit/L 25-115 [id number] 05:37:00* Test Item Value Reference Range Interpretation Comments MAGNESIUM (test code = MAG) mg/dL 1.8-2.4 THYROID PROFILE [id number] 05:37:00* Test Item Value Reference Range Interpretation Comments T3 UPTAKE (test code = T3UP) % 30.0-40.0 T4 (THYROXINE) (test code = T4) ug/dL 4.5-13.9 T7 (FREE THYROXINE INDEX) (test code = T7) FTI 1.3-5.1 THYROID STIMULATING HORMONE (test code = TSH) uIU/mL 0.36-3.7 4 AB HELICOBACTER [id number] 05:19:00* Test Item Value Reference Range Interpretation Comments AB HELICOBACTER IGG (test code = HELIGAB) NEGATIVE NEGATIVE CBC W/O [id number] 05:10:00* Test Item Value Reference Range Interpretation [...] code = MPV) 9.8 fL 6.7-11.0 N [id number] 03:15:00* Test Item Value Reference Range Interpretation Comments TROPONIN-I (test code = TROPI) <0.015 ng/mL 0-0.045 N 04/16/19 1246PATIENT REFUSED SEAN LEES NOTIFIED V.LAB.HSARA 087509XCOFPTHD T O SUPERVISOR URANIUM PROCESSING: COLLECT 3 HOURS AFTER PREVIOUS SAMPLE [id number] 23:37:00* Test Item Value Reference Range Interpretation Comments TROPONIN-I (test code = TROPI) <0.015 ng/mL 0-0.045 N 04/16/19 1245PATIENT REFUSED SEAN GUZMÁN NOTIFIED V.LAB.SHARA 440678LYBYLGMV TO SUPERVISOR URANIUM PROCESSING: COLLECT 3 HOURS AFTER PREVIOUS SAMPLE [id number] 20:39:00* Test Item Value Reference Range Interpretation Comments GLUBED (test code = GLUBED) 223 mg/dL 74-106 H Performed by certified power system operator at [facility] AG HEPAT B [id number] 17:26:00* Test Item Value Reference Range Interpretation Comments AG HEPAT B SURF (test code = HBSAG) Nonreactive Index Nonreactive [id number] 16:59:00* Test Item Value Reference Range Interpretation Comments GLUBED (test code = GLUBED) 326 mg/dL 74-106 H Performed by certified power system operator at [facility] [id number] 12:13:00* Test Item Value Reference Range Interpretation Comments GLUBED (test code = GLUBED) 353 mg/dL 74-106 H Performed by certified power system operator at [facility] [id number] 07:52:00* Test Item Value Reference Range Interpretation Comments GLUBED (test code = GLUBED) 283 mg/dL 74-106 H Performed by certified power system operator at [facility] - CT ABD PELVIS W/O [id number] 18:07:00 Name: DAYO MCINTYRE [facility] : 1965 Age/S: 53 / F [address] [facility] Unit #: [id number] Loc: [place] [address] Phys: Mariajose Vazquez MD Acct: [id number] Dis Date: Status: REG ER PHONE #: [phone] Exam Date: 04/15/2019 1732 FAX #: [phone] Reason: R flank pain EXAMS: CPT CODE: [id number] CT ABD PELVIS W/O CONT 39335 HISTORY: Right flank pain. COMPARISON: January 18, [...] 1 Signed Report (CONTINUED) Name: DAYO MCINTYRE [facility] : 1965 Age/S: 53 / F [address] Unit #: [id number] Loc: [place], [place] [address] Phys: Mariajose Vazquez MD Acct: [id number] Dis Date: Status: REG ER PHONE #: [phone] Exam Date: 04/15/2019 1737 FAX #: [phone] Reason: R flank pain EXAMS: CPT CODE: [id number] ABD PELVIS W/O CONT 12825 <Continued> at 1807 Reported and signed by: Kristofer Summers M.D. CC: Mariajose Vazquez MD; Mike Forbes echnologist:Tita Matias RT(R),CT; CTDI: DLP: Trnscb Date /Time: 04/15/2019 (180) [email or web address] Orig Print D/T: S: (181) PAGE 2 Signed Report COMPREHENSIVE METABOLIC [id number] 17:34:00* Test Item Value Reference Range Interpretation [...] reference range due to change in reagent. [id number] 17:34:00* Test Item Value Reference Range Interpretation Comments LIPASE (test code = LIP) 44 U/L 73.0-393.0 L [id number] 17:34:00* Test Item Value Reference Range Interpretation Comments TROPONIN-I (test code = TROPI) <0.015 ng/mL 0-0.045 N [id number] 17:34:00* Test Item Value Reference Range Interpretation Comments CKMB (test code = CKMBT) 1.5 ng/mL 0-6.0 N COMPREHENSIVE METABOLIC [id number] 17:19:00* Test Item Value Reference Range Interpretation [...] TOTAL (test code = ALKP) IUnit/L 45-117 [id number] 17:19:00* Test Item Value Reference Range Interpretation Comments LIPASE (test code = LIP) U/L 73.0-393.0 [id number] 17:19:00* Test Item Value Reference Range Interpretation Comments TROPONIN-I (test code = TROPI) ng/mL 0-0.045 URINALYSIS [id number] 17:18:00* Test Item Value Reference Range Interpretation [...] per HPF Few Urine Source? Clean CatchURINALYSIS [id number] 17:17:00* Test Item Value Reference Range Interpretation [...] HPF NONE Urine Source? Clean CatchCBC W/AUTO [id number] 17:05:00* Test Item Value Reference Range Interpretation [...] K/mm3 0.0-0.1 N - XR CHEST 2 [id number] 17:05:00 FAX: Mariajose Goode [phone] [place]: St: REG FAX: Mike Orozco [phone] Name: DAYO MCINTYRE [facility] : 1965 Age/S: 53/F [address] Unit #: [id number] Loc: [place] [address] Phys: Mariajose Vazquez MD Acct: [id number] Dis Date: Status: REG ER PHONE #: [phone] Exam Date: 04/15/2019 1650 FAX #: [phone] Reason: flank pain EXAMS: CPT CODE: [id number] XR CHEST 2 V 07784 HISTORY: Flank pain. COMPARISON: January 19, 2018. AP and lateral view of the chest: No acute infiltrates, effusion or congestion. Suboptimal inspiration. Cardiac silhouette is within normal limits. Anterior left chest wall monitoring analyst. IMPRESSION: No acute infiltrates, effusion or congestion. at 1701 Reported and signed by: Kristofer Summers M.D. CC: Mariajose Vazquez MD; Mike Forbes Technologist: RT SHELLY(She) Trnscrd Date/Time/By: 04/15/2019 (5622) : By: [email or web address] Orig Print D/T: S: 04/15/2019 (4152) PAGE 1 Signed Report Throat Culture Strep [id number] 08:04:31No Group A Strep at 24 hours. [...] use of iterative reconstruction technique.COMPARISON: None availableLOCATION: [id number]:There is a trace left pleural effusion with [...] 1:46 pmStreptococcus A Screen Rapid w/ Reflex [id number] 13:21:29* Test Item Value Reference Range Interpretation Comments Strep A Scn (test code = Strep A Scn) Negative Negative Lot # (test code = Lot #) [id number] N Expiration Dt (test code = Expiration Dt) 01/28/2020 N Neg Control (test code = Neg Control) Not Performed Pos Control (test code = Pos Control) Not Performed Internal QC (test code = Internal QC) Acceptable Comprehensive Metabolic [id number] 13:14:34* Test Item Value Reference Range Interpretation [...] = A/G Ratio) 1.3 ratio N Lipase [id number] 13:14:34* Test Item Value Reference Range Interpretation Comments Lipase Level (test code = Lipase Level) 8 U/L 13-60 L Comprehensive Metabolic [id number] 13:14:34* Test Item Value Reference Range Interpretation [...] is not provided, and the patient is -Scottish, multiply by 1.212. If sex is not [...] the National [employer] Foundation, http://nkdep.nih.gov Comprehensive Metabolic Bwjpg9907-74-29 13:14:34* Test Item Value Reference Range Interpretation [...] is not provided, and the patient is -Scottish, multiply by 1.212. If sex is not [...] is not provided, and the patient is -Scottish, multiply by 1.212. If sex is not [...] the National [employer] Foundation, http://nkdep.nih.gov Comprehensive Metabolic Yrrll3584-52-96 13:14:34* Test Item Value Reference Range Interpretation [...] is not provided, and the patient is -Scottish, multiply by 1.212. If sex is not [...] is not provided, and the patient is -Scottish, multiply by 1.212. If sex is not [...] the National [employer] Foundation, http://nkdep.nih.gov Comprehensive Metabolic Qzkzn5627-98-08 13:14:34* Test Item Value Reference Range Interpretation [...] is not provided, and the patient is -Scottish, multiply by 1.212. If sex is not [...] is not provided, and the patient is -Scottish, multiply by 1.212. If sex is not [...] by the National [employer] Foundation, http://nkdep.nih.gov Automated Sfistlydjmos9778-88-21 12:58:43* Test Item Value Reference Range Interpretation Comments Neutro Auto (test code = Neutro Auto) 80.5 % 36.0-70.0 H Lymph Auto (test code = Lymph Auto) 10.6 % 12.0-44.0 L Gaines Auto (test code = Gaines Auto) 5.8 % 0.0-11.0 Eos, Auto (test code = Eos, Auto) 2.1 % 0.0-7.0 Basophil Auto (test code = Basophil Auto) 0.6 % 0.0-2.0 Neutro Absolute (test code = Neutro Absolute) 7.2 x10 1.6-7.4 Lymph Absolute (test code = Lymph Absolute) .94 x10 .50-4.60 Gaines Absolute (test code = Gaines Absolute) .52 x10 .00-1.20 Eos Absolute (test code = Eos Absolute) 0.19 x10 0.00-0.74 Baso Absolute (test code = Baso Absolute) 0.05 x10 0.00-0.21 IG [id number] 12:58:43* Test Item Value Reference Range Interpretation Comments IG (test code = IG) 0.4 % 0.0-5.0 IG Abs (test code = IG Abs) 0 x10 N Complete Blood Count with [id number] 12:58:42* Test Item Value Reference Range Interpretation [...] 0 % N Complete Blood Count with Blfjrbrpvkar8617-32-45 12:58:42* Test Item Value Reference Range Interpretation [...] 0 % N Complete Blood Count with Dqpzguyrztdr8229-05-10 12:58:42* Test Item Value Reference Range Interpretation [...] IPF) 0 % N US Breast Complete [id number] 10:44:50Patient: DAYO MCINTYRE Date/Time03/30/2019 09:48 CDTReason for [...] [facility]AMMO[facility].Exam Date/Time03/30/2019 09:48 CDTReportBI-RA DS Category 3: Probably benign Final Dictated by: MD Go Eniola FDictated DT/TM: 03/30/2019 9:50 amSigned by: MD oG E niola FSigned (Electronic Signature): 03/30/2019 10:44 amMG Mammo Digital Diagnostic [id number] 10:44:50Patient: DAYO MCINTYRE Date/Time03/30/2019 08:23 CDTReason for [...] BREAST ULTRASOUND AND MAMMOGRAM.Exam Date/Time03/30/2019 08:23 CDTReportBI-RA MONTERO Category 3: Probably benign Final Dictated by: MD Abbi, Jacki FDictated DT/TM: 03/30/2019 9:50 amSigned by: MD Go E niola FSigned (Electronic Signature): 03/30/2019 10:44 amUS Breast Complete [id number] 10:44:50Patient: DAYO MCINTYRE Date/Time03/30/2019 09:48 CDTReason for [...] ultrasound for stability.RECOMMENDATIONS: 6 MONTH FOLLOW-UP RI [facility] BREAST ULTRASOUND AND MAMMOGRAM.Exam Date/Time03/30/2019 09:48 CDTReportBI-RA DS Category 3: Probably benign Final Dictated by: MD Abbi, Jacki FDictated DT/TM: 03/30/2019 9:50 amSigned by: MD Go E niola FSigned (Electronic Signature): 03/30/2019 10:44 amMG Mammo Digital Diagnostic [id number] 10:44:50Patient: DAYO MCINTYRE Date/Time03/30/2019 08:23 CDTReason for [...] ultrasound for stability.RECOMMENDATIONS: 6 MONTH FOLLOW-UP RI [facility] BREAST ULTRASOUND AND MAMMOGRAM.Exam Date/Time03/30/2019 08:23 CDTReportBI-RA DS Category 3: Probably benign Final Dictated by: MD Abbi, Jacki FDictated DT/TM: 03/30/2019 9:50 amSigned by: MD Go E niola FSigned (Electronic Signature): 03/30/2019 10:44 amUS Breast Complete [id number] 10:44:50Patient: DAYO MCINTYRE Date/Time03/30/2019 09:48 CDTReason for [...] ultrasound for stability.RECOMMENDATIONS: 6 MONTH FOLLOW-UP RI [facility] BREAST ULTRASOUND AND MAMMOGRAM.Exam Date/Time03/30/2019 09:48 CDTReportBI-RA DS Category 3: Probably benign Final Dictated by: MD Go Eniola FDictated DT/TM: 03/30/2019 9:50 amSigned by: MD Go E niola FSigned (Electronic Signature): 03/30/2019 10:44 amUS Breast Complete [id number] 10:44:50Patient: DAYO MCINTYRE Date/Time03/30/2019 09:48 CDTReason for [...] ultrasound for stability.RECOMMENDATIONS: 6 MONTH FOLLOW-UP RI [facility] BREAST ULTRASOUND AND MAMMOGRAM.Exam Date/Time03/30/2019 09:48 CDTReportBI-RA DS Category 3: Probably benign Final Dictated by: MD Go Eniola FDictated DT/TM: 03/30/2019 9:50 amSigned by: MD Go E niola FSigned (Electronic Signature): 03/30/2019 10:44 amUS Breast Complete [id number] 10:44:50Patient: DAYO MCINTYRE Date/Time03/30/2019 09:48 CDTReason for [...] ultrasound for stability.RECOMMENDATIONS: 6 MONTH FOLLOW-UP RI [facility] BREAST ULTRASOUND AND MAMMOGRAM.Exam Date/Time03/30/2019 09:48 CDTReportBI-RA MONTERO Category 3: Probably benign Final Dictated by: MD Go Eniola FDictated DT/TM: 03/30/2019 9:50 amSigned by: MD Go E niola FSigned (Electronic Signature): 03/30/2019 10:44 amFOOT 2VIEW RT - HOPD 2019-03-19 11:44:00 [place] [address] Patient Name: DAYO MCINTYRE MR #: [id number] : 1965 Age/Sex: 53/F Req #: [id number] Adm Physician: Ordered by: TEJAL WALLACE MD Report #: [id number] Location: [facility] Room/Bed: Procedure: 05 HOPD/FOOT 2VIEW RT - [...] WALLACE MD ANKLE 3 VIEW RT - [id number] 11:42:00 [place] [address] Patient Name: DAYO MCINYTRE MR #: [id number] : 1965 Age/Sex: 53/F Req #: [id number] Adm Physician: Ordered by: TEJAL WALLACE MD Report #: [id number] Location: [facility] Room/Bed: Procedure: 06 HOPD/ANKLE 3 VIEW [...] 1144 COPY TO: TEJAL WALLACE MD HEMOGLOBIN [id number] 12:05:00* Test Item Value Reference Range Interpretation Comments HEMOGLOBIN A1C (BEAKER) (test code = 368) 10.5 % 4.3-6.1 H [id number] 11:58:00* Test Item Value Reference Range Interpretation Comments RPR SCREEN (BEAKER) (test code = 420) Nonreactive Nonreactive VARICELLA ZOSTER ANTIBODY, [id number] 11:38:00* Test Item Value Reference Range Interpretation Comments VARICELLA ZOSTER IGG (AL) (BEAKER) (test code = 3197) 4.4 VARICELLA ZOSTER RESULT INTERPRETATIONS: <=0.8 Al Nonreactive: Presumed non-immune to VZV 0.9-1.0 Al Equivocal >=1.1 Al Reactive: Presumed immune to VZVCYTOMEGALOVIRUS ANTIBODY, [id number] 11:30:00* Test Item Value Reference Range Interpretation Comments CYTOMEGALOVIRUS, IGG (BEAKER) (test code = 3429) Positive Negat rebeca, Equivocal A CMV IgG Result Interpretation: </= 0.8 Al Negative 0.9-1.0 Al Equivocal > /=1.1 Al PositiveCYTOMEGALOVIRUS ANTIBODY, [id number] 11:30:00* Test Item Value Reference Range Interpretation Comments CYTOMEGALOVIRUS IGM ANTIBODY (BEAKER) (test code = 3437) Neg ative Negative, Equivocal CMV IgM Result Interpretation: </= 0.8 Al Negative 0.9-1.0 Al Equivocal > /= 1.1 Al PositiveEBV ANTIBODY, [id number] 11:30:00* Test Item Value Reference Range Interpretation Comments YUNIEL MACK VIRAL CAPSID ANTIGEN IGG (BEAKER) (test code = 3415) Positive Negative, Equivocal A Yuniel Mack Viral Capsid Antigen IgG Result Interpretation: </= 0.8 Al Negative 0.9-1.0 Al Equivocal >/= 1.1 Al PositiveEBV ANTIBODY, [id number] 11:30:00* Test Item Value Reference Range Interpretation Comments YUNIEL MACK VIRAL CAPSID ANTIGEN IGM (BEAKER) (test code = 3418) Negative Negative, Equivocal Yuniel Mack Viral Capsid Antigen IgM Result Interpretation: </= 0.8 Al Negative 0.9-1.0 Al Equivocal >/= 1.1 Al PositiveHEPATITIS B SURFACE [id number] 11:07:00* Test Item Value Reference Range Interpretation Comments HEPATITIS B SURFACE ANTIBODY (BEAKER) (test code = 647) < mIU/mL <8.0 HEPATITIS B SURFACE [id number] 11:00:00* Test Item Value Reference Range Interpretation Comments HEPATITIS B SURFACE ANTIGEN (2) (BEAKER) (test code = 2585) Nonreactive Nonreactive HEPATITIS B CORE ANTIBODY, [id number] 11:00:00* Test Item Value Reference Range Interpretation Comments HEPATITIS B CORE IGM ANTIBODY (BEAKER) (test code = 645) Non reactive Nonreactive HEPATITIS C [id number] 11:00:00* Test Item Value Reference Range Interpretation Comments HEPATITIS C ANTIBODY (BEAKER) (test code = 367) Nonreactive Nonrea ctive HIV-1 ANTIGEN WITH HIV-1/2 [id number] 11:00:00* Test Item Value Reference Range Interpretation Comments HIV-1 ANTIGEN WITH HIV 1\\T\\2 ANTIBODY (2) (BEAKER) (te st code = 2586) Nonreactive Nonreactive PTH, [id number] 10:46:00* Test Item Value Reference Range Interpretation Comments PARATHYROID HORMONE INTACT (BEAKER) (test code = 577) 618.4 pg/mL 8.5-72.5 H COMPREHENSIVE METABOLIC [id number] 10:45:00* Test Item Value Reference Range Interpretation [...] IS NOT APPLICABLE FOR DIALYSIS PATIENTS. URIC [id number] 10:30:00* Test Item Value Reference Range Interpretation Comments URIC ACID (BEAKER) (test code = 773) 5.6 mg/dL 2.6-7.2 CCZLHFKTPZ1055-94-06 10:30:00* Test Item Value Reference Range Interpretation [...] 20 H CBC W/PLT COUNT & AUTO KYWBYPRINPKL2270-07-13 10:16:00* Test Item Value Reference Range Interpretation [...] (test code = 2801) 1 % 0-1 PT/[id number] 10:13:00* Test Item Value Reference Range Interpretation [...] with mechanical heart valves.XR Foot 2 Views Kqfl9193-74-05 13:02:17 Patient: DAYO MCINTYRE am Date/Time07/19/2018 12:52 CDTReason for Exampain;Pain (please specify)ReportDi ctation location M06Ysxsn foot 3 views, left foot 2 viewsHISTORY: Pain following trauma.COMMENT: The bones appear slightly demineralized. There is no acute frac ture or dislocation. No focal lesion or destructive process seen. Vascular calci fications are noted. There are small calcaneal spurs..IMPRESSION:No acute findin gs. Final Dictated by: MD Hafsa, Lauren CDictated DT/TM: 07/19/2018 1:01 pmSigned by: MD Pereyra Phebe CSigned (Electronic Signature): 07/19/2018 1 :02 pmXR Foot Complete 3+ Views Lygtx2816-09-80 13:02:17Patient: DAYO MCINTYRE Date/Time07/19/2018 12:52 CDTReason for Exampain;TraumaReportDictation location C06Wigtv foot 3 views, left foot 2 viewsHISTORY: [...] Phebe CSigned (Electronic Signature): 07/19/2018 1:02 pmSodium Olgbv3308-15-60 02:16:00* Test Item Value Reference Range Interpretation Comments Sodium Level (test code = 2951-2) 134 136-145 L [facility] CenterPotassium Nggmw0133-43-23 02:16:00* Test Item Value Reference Range Interpretation Comments Potassium Level (test code = 2823-3) 4.9 3.5-5.1 [facility] CenterChloride Mgnck6775-25-14 02:16:00* Test Item Value Reference Range Interpretation Comments Chloride Level (test code = 2075-0) 90 98-107 L [facility] CenterCarbon Dioxide Imsvp5237-39-32 02:16:00* Test Item Value Reference Range Interpretation Comments Carbon Dioxide Level (test code = 2028-9) 25 22-29 [facility] CenterAnion Zsv7135-15-59 02:16:00* Test Item Value Reference Range Interpretation Comments Anion Gap (test code = 42716-2) 23.9 8-16 H [facility] CenterBlood Urea Ksohdgjq9558-41-01 02:16:00* Test Item Value Reference Range Interpretation Comments Blood Urea Nitrogen (test code = 3094-0) 55 7-26 H [facility] CenterCreatinine2018-08-17 02:16:00* Test Item Value Reference Range Interpretation Comments Creatinine (test code = 2160-0) 8.57 0.57-1.11 H [facility] CenterBUN/Creatinine Sudnx0757-55-83 02:16:00* Test Item Value Reference Range Interpretation Comments BUN/Creatinine Ratio (test code = 3097-3) 6 6-25 [facility] CenterEstimat Glomerular Filtration Rate 2018-06-03 02:16:00* Test Item Value Reference Range Interpretation Comments Estimat Glomerular Filtration Rate (test code = 54785-8) 5 >60 L Ranges were taken from the National Kidney Disease Education Program and the [facility] Foundation literature.Reference ranges:60 or greater: Nvbmaa23-41 ( for 3 consecutive months): Chronic kidney disease 15 or less: Kidney failureEnnis [facility] Medical CenterGlucose Twsqh7375-40-39 02:16:00* Test Item Value Reference Range Interpretation Comments Glucose Level (test code = XKC0946) 393 74-118 H [facility] CenterCalcium Kjadn3002-78-60 02:16:00* Test Item Value Reference Range Interpretation Comments Calcium Level (test code = 79004-2) 9.4 8.4-10.2 [facility] CenterTotal Izltsztwa5556-54-58 02:16:00* Test Item Value Reference Range Interpretation Comments Total Bilirubin (test code = 1975-2) 0.5 0.2-1.2 [facility] CenterAspartate Amino Transf (AST/SGOT) 2018-06-03 02:16:00* Test Item Value Reference Range Interpretation Comments Aspartate Amino Transf (AST/SGOT) (test code = Aspartate Amino Transf (AST/SGOT)) 31 5-34 [facility] CenterAlanine Aminotransferase (ALT/SGPT) 2018-06-03 02:16:00* Test Item Value Reference Range Interpretation Comments Alanine Aminotransferase (ALT/SGPT) (test code = 1742-6) 21 0-55 [facility] CenterTotal Qigocog3904-77-03 02:16:00* Test Item Value Reference Range Interpretation Comments Total Protein (test code = 2885-2) 7.7 6.5-8.1 [facility] CenterAlbumin2018-08-17 02:16:00* Test Item Value Reference Range Interpretation Comments Albumin (test code = 1751-7) 3.5 3.5-5.0 [facility] CenterGlobulin2018-08-17 02:16:00* Test Item Value Reference Range Interpretation Comments Globulin (test code = 70935-9) 4.2 2.3-3.5 H [facility] CenterAlbumin/Globulin Rlspw0629-48-32 02:16:00 * Test Item Value Reference Range Interpretation Comments Albumin/Globulin Ratio (test code = 1759-0) 0.8 0.8-2.0 [facility] CenterAlkaline Zngbryowgoi2100-51-57 02:16:00* Test Item Value Reference Range Interpretation Comments Alkaline Phosphatase (test code = 6768-6) 120 40-150 [facility] Mmlko4829-09-38 02:16:00* Test Item Value Reference Range Interpretation Comments Sodium Level (test code = 2951-2) 134 136-145 L [facility] CenterPotassium Ebrpc9611-56-40 02:16:00* Test Item Value Reference Range Interpretation Comments Potassium Level (test code = 2823-3) 4.9 3.5-5.1 [facility] CenterChloride Jopwi9197-90-11 02:16:00* Test Item Value Reference Range Interpretation Comments Chloride Level (test code = 2075-0) 90 98-107 L [facility] CenterCarbon Dioxide Dmczb9339-46-46 02:16:00* Test Item Value Reference Range Interpretation Comments Carbon Dioxide Level (test code = 2028-9) 25 22-29 [facility] CenterAnion Czy7298-71-45 02:16:00* Test Item Value Reference Range Interpretation Comments Anion Gap (test code = 63828-5) 23.9 8-16 H [facility] CenterBlood Urea Nmricyyf8672-91-27 02:16:00* Test Item Value Reference Range Interpretation Comments Blood Urea Nitrogen (test code = 3094-0) 55 7-26 H [facility] CenterCreatinine2018-08-17 02:16:00* Test Item Value Reference Range Interpretation Comments Creatinine (test code = 2160-0) 8.57 0.57-1.11 H [facility] CenterBUN/Creatinine Wqecs3647-47-68 02:16:00* Test Item Value Reference Range Interpretation Comments BUN/Creatinine Ratio (test code = 3097-3) 6 6-25 [facility] CenterEstimat Glomerular Filtration Rate 2018-06-03 02:16:00* Test Item Value Reference Range Interpretation Comments Estimat Glomerular Filtration Rate (test code = 316313569) 5 >60 L Ranges were taken from the National Kidney Disease Education Program and the [facility] literature.Reference ranges:60 or greater: Nhwcys76-97 ( for 3 consecutive months): Chronic kidney disease 15 or less: Kidney failureCHI [facility] Medical CenterGlucose Aqnie5833-74-83 02:16:00* Test Item Value Reference Range Interpretation Comments Glucose Level (test code = ZWE8982) 393 74-118 H [facility] CenterCalcium Kegpz3441-04-50 02:16:00* Test Item Value Reference Range Interpretation Comments Calcium Level (test code = 18928-5) 9.4 8.4-10.2 [facility] CenterTotal Tjztlrjji4231-49-54 02:16:00* Test Item Value Reference Range Interpretation Comments Total Bilirubin (test code = 1975-2) 0.5 0.2-1.2 [facility] CenterAspartate Amino Transf (AST/SGOT) 2018-06-03 02:16:00* Test Item Value Reference Range Interpretation Comments Aspartate Amino Transf (AST/SGOT) (test code = Aspartate Amino Transf (AST/SGOT)) 31 5-34 [facility] CenterAlanine Aminotransferase (ALT/SGPT) 2018-06-03 02:16:00* Test Item Value Reference Range Interpretation Comments Alanine Aminotransferase (ALT/SGPT) (test code = 1742-6) 21 0-55 [facility] CenterTotal Nplkvst6542-29-67 02:16:00* Test Item Value Reference Range Interpretation Comments Total Protein (test code = 2885-2) 7.7 6.5-8.1 [facility] CenterAlbumin2018-08-17 02:16:00* Test Item Value Reference Range Interpretation Comments Albumin (test code = 1751-7) 3.5 3.5-5.0 [facility] CenterGlobulin2018-08-17 02:16:00* Test Item Value Reference Range Interpretation Comments Globulin (test code = 24106-2) 4.2 2.3-3.5 H [facility] CenterAlbumin/Globulin Brrvq5564-99-90 02:16:00 * Test Item Value Reference Range Interpretation Comments Albumin/Globulin Ratio (test code = 1759-0) 0.8 0.8-2.0 [facility] CenterAlkaline Rsetuiirhal0049-40-62 02:16:00* Test Item Value Reference Range Interpretation Comments Alkaline Phosphatase (test code = 6768-6) 120 40-150 [facility] CenterWhite Blood Ovnop7104-93-98 02:07:00* Test Item Value Reference Range Interpretation Comments White Blood Count (test code = 6690-2) 11.49 4.8-10.8 H [facility] CenterRed Blood Nqohj4274-21-24 02:07:00* Test Item Value Reference Range Interpretation Comments Red Blood Count (test code = 789-8) 3.47 3.6-5.1 L [facility] CenterHemoglobin2018-08-17 02:07:00* Test Item Value Reference Range Interpretation Comments Hemoglobin (test code = 83401-4) 12.1 12.0-16.0 [facility] CenterHematocrit2018-08-17 02:07:00* Test Item Value Reference Range Interpretation Comments Hematocrit (test code = 4544-3) 35.9 34.2-44.1 [facility] CenterMean Corpuscular Uwpajf7797-98-46 02:07:00* Test Item Value Reference Range Interpretation Comments Mean Corpuscular Volume (test code = 787-2) 103.5 81-99 H [facility] CenterMean Corpuscular Rehouyuyea8023-23-00 02:07:00* Test Item Value Reference Range Interpretation Comments Mean Corpuscular Hemoglobin (test code = 785-6) 34.9 28-32 H [facility] CenterMean Corpuscular Hemoglobin Concent 2018-06-03 02:07:00* Test Item Value Reference Range Interpretation Comments Mean Corpuscular Hemoglobin Concent (test code = 786-4) 33.7 31-35 [facility] CenterRed Cell Distribution Gyvrn5737-93-65 02:07:00* Test Item Value Reference Range Interpretation Comments Red Cell Distribution Width (test code = 50267-3) 13.2 11.7 -14.4 [facility] CenterPlatelet Ldyuo0911-57-12 02:07:00* Test Item Value Reference Range Interpretation Comments Platelet Count (test code = 777-3) 222 140-360 [facility] CenterNeutrophils (%) (Auto)2018-06-03 02:07:00 * Test Item Value Reference Range Interpretation Comments Neutrophils (%) (Auto) (test code = 08825-0) 80.8 38.7-80.0 H [facility] CenterLymphocytes (%) (Auto)2018-06-03 02:07:00 * Test Item Value Reference Range Interpretation Comments Lymphocytes (%) (Auto) (test code = 736-9) 12.2 18.0-39.1 L [facility] CenterMonocytes (%) (Auto)2018-06-03 02:07:00* Test Item Value Reference Range Interpretation Comments Monocytes (%) (Auto) (test code = 5905-5) 4.6 4.4-11.3 [facility] CenterEosinophils (%) (Auto)2018-06-03 02:07:00 * Test Item Value Reference Range Interpretation Comments Eosinophils (%) (Auto) (test code = 713-8) 1.8 0.0-6.0 [facility] CenterBasophils (%) (Auto)2018-06-03 02:07:00* Test Item Value Reference Range Interpretation Comments Basophils (%) (Auto) (test code = 706-2) 0.3 0.0-1.0 [facility] CenterIM GRANULOCYTES %2018-06-03 02:07:00* Test Item Value Reference Range Interpretation Comments IM GRANULOCYTES % (test code = IM GRANULOCYTES %) 0.3 0.0- 1.0 [facility] CenterNeutrophils # (Auto)2018-06-03 02:07:00* Test Item Value Reference Range Interpretation Comments Neutrophils # (Auto) (test code = 751-8) 9.3 2.1-6.9 H [facility] CenterLymphocytes # (Auto)2018-06-03 02:07:00* Test Item Value Reference Range Interpretation Comments Lymphocytes # (Auto) (test code = 58624-9) 1.4 1.0-3.2 [facility] CenterMonocytes # (Auto)2018-06-03 02:07:00* Test Item Value Reference Range Interpretation Comments Monocytes # (Auto) (test code = 742-7) 0.5 0.2-0.8 [facility] CenterEosinophils # (Auto)2018-06-03 02:07:00* Test Item Value Reference Range Interpretation Comments Eosinophils # (Auto) (test code = 711-2) 0.2 0.0-0.4 [facility] CenterBasophils # (Auto)2018-06-03 02:07:00* Test Item Value Reference Range Interpretation Comments Basophils # (Auto) (test code = 704-7) 0.0 0.0-0.1 [facility] CenterAbsolute Immature Granulocyte (auto 2018-06-03 02:07:00* Test Item Value Reference Range Interpretation Comments Absolute Immature Granulocyte (auto (chago t code = Absolute Immature Granulocyte (auto) 0.04 0-0.1 [facility] CenterProthrombin Dzxt4612-15-61 02:07:00* Test Item Value Reference Range Interpretation Comments Prothrombin Time (test code = 5902-2) 12.6 11.9-14.5 [facility] CenterProthromb Time International Ratio 2018-06-03 02:07:00* Test Item Value Reference Range Interpretation Comments Prothromb Time International Ratio (test code = 6301-6) 1.02 Oral Anticoagulant Therapy INR Values:1. Low Intensity Therapy 1.5 - 2.02 . Moderate Intensity Therapy 2.0 - 3.03. High Intensity Therapy(1) 2.5 - 3. 54. High Intensity Therapy(2) 3.0 - 4.05. Panic Value INR > 5.0 [facility] CenterActivated Partial Thromboplast Time 2018-06-03 02:07:00* Test Item Value Reference Range Interpretation Comments Activated Partial Thromboplast Time (test code = 66119-9) 27.6 23.8-35.5 [facility] CenterWhite Blood Tmslt7311-11-29 02:07:00* Test Item Value Reference Range Interpretation Comments White Blood Count (test code = 6690-2) 11.49 4.8-10.8 H [facility] CenterRed Blood Ghzsy0597-99-48 02:07:00* Test Item Value Reference Range Interpretation Comments Red Blood Count (test code = 789-8) 3.47 3.6-5.1 L [facility] CenterHemoglobin2018-08-17 02:07:00* Test Item Value Reference Range Interpretation Comments Hemoglobin (test code = 76281-5) 12.1 12.0-16.0 [facility] CenterHematocrit2018-08-17 02:07:00* Test Item Value Reference Range Interpretation Comments Hematocrit (test code = 4544-3) 35.9 34.2-44.1 [facility] CenterMean Corpuscular Caitqo8839-13-42 02:07:00* Test Item Value Reference Range Interpretation Comments Mean Corpuscular Volume (test code = 787-2) 103.5 81-99 H [facility] CenterMean Corpuscular Kbzrfyjwpm9686-74-33 02:07:00* Test Item Value Reference Range Interpretation Comments Mean Corpuscular Hemoglobin (test code = 785-6) 34.9 28-32 H [facility] CenterMean Corpuscular Hemoglobin Concent 2018-06-03 02:07:00* Test Item Value Reference Range Interpretation Comments Mean Corpuscular Hemoglobin Concent (test code = 786-4) 33.7 31-35 [facility] CenterRed Cell Distribution Hdkpz8491-48-16 02:07:00* Test Item Value Reference Range Interpretation Comments Red Cell Distribution Width (test code = 31543-5) 13.2 11.7 -14.4 [facility] CenterPlatelet Nzmmt1154-49-98 02:07:00* Test Item Value Reference Range Interpretation Comments Platelet Count (test code = 777-3) 222 140-360 [facility] CenterNeutrophils (%) (Auto)2018-06-03 02:07:00 * Test Item Value Reference Range Interpretation Comments Neutrophils (%) (Auto) (test code = 47703-8) 80.8 38.7-80.0 H [facility] CenterLymphocytes (%) (Auto)2018-06-03 02:07:00 * Test Item Value Reference Range Interpretation Comments Lymphocytes (%) (Auto) (test code = 736-9) 12.2 18.0-39.1 L [facility] CenterMonocytes (%) (Auto)2018-06-03 02:07:00* Test Item Value Reference Range Interpretation Comments Monocytes (%) (Auto) (test code = 5905-5) 4.6 4.4-11.3 [facility] CenterEosinophils (%) (Auto)2018-06-03 02:07:00 * Test Item Value Reference Range Interpretation Comments Eosinophils (%) (Auto) (test code = 713-8) 1.8 0.0-6.0 [facility] CenterBasophils (%) (Auto)2018-06-03 02:07:00* Test Item Value Reference Range Interpretation Comments Basophils (%) (Auto) (test code = 706-2) 0.3 0.0-1.0 [facility] CenterIM GRANULOCYTES %2018-06-03 02:07:00* Test Item Value Reference Range Interpretation Comments IM GRANULOCYTES % (test code = IM GRANULOCYTES %) 0.3 0.0- 1.0 [facility] CenterNeutrophils # (Auto)2018-06-03 02:07:00* Test Item Value Reference Range Interpretation Comments Neutrophils # (Auto) (test code = 751-8) 9.3 2.1-6.9 H [facility] CenterLymphocytes # (Auto)2018-06-03 02:07:00* Test Item Value Reference Range Interpretation Comments Lymphocytes # (Auto) (test code = 96782-4) 1.4 1.0-3.2 [facility] CenterMonocytes # (Auto)2018-06-03 02:07:00* Test Item Value Reference Range Interpretation Comments Monocytes # (Auto) (test code = 742-7) 0.5 0.2-0.8 [facility] CenterEosinophils # (Auto)2018-06-03 02:07:00* Test Item Value Reference Range Interpretation Comments Eosinophils # (Auto) (test code = 711-2) 0.2 0.0-0.4 [facility] CenterBasophils # (Auto)2018-06-03 02:07:00* Test Item Value Reference Range Interpretation Comments Basophils # (Auto) (test code = 704-7) 0.0 0.0-0.1 [facility] CenterAbsolute Immature Granulocyte (auto 2018-06-03 02:07:00* Test Item Value Reference Range Interpretation Comments Absolute Immature Granulocyte (auto (chago t code = Absolute Immature Granulocyte (auto) 0.04 0-0.1 [facility] CenterProthrombin Orqk3108-04-78 02:07:00* Test Item Value Reference Range Interpretation Comments Prothrombin Time (test code = 5902-2) 12.6 11.9-14.5 [facility] CenterProthromb Time International Ratio 2018-06-03 02:07:00* Test Item Value Reference Range Interpretation Comments Prothromb Time International Ratio (test code = 6301-6) 1.02 Oral Anticoagulant Therapy INR Values:1. Low Intensity Therapy 1.5 - 2.02 . Moderate Intensity Therapy 2.0 - 3.03. High Intensity Therapy(1) 2.5 - 3. 54. High Intensity Therapy(2) 3.0 - 4.05. Panic Value INR > 5.0 [facility] CenterActivated Partial Thromboplast Time 2018-06-03 02:07:00* Test Item Value Reference Range Interpretation Comments Activated Partial Thromboplast Time (test code = 10349-5) 27.6 23.8-35.5 [facility] CenterPOC Glucose, Xpgoa4623-49-52 14:46:00* Test Item Value Reference Range Interpretation Comments POC Glucose (test code = POCGLUC) 476 mg/dL 70-115 Comprehensive Metabolic Colxc4591-81-87 13:31:00* Test Item Value Reference Range Interpretation [...] race is not provided, and the patient isAfrican-Scottish, multiply by 1.212. If sex is not [...] recommended by the National Kidney Found ation,http://nkdep.nih.gov 73445& PELVIS W/O UNIWNBMW4690-23-60 13:00:54DICTATION LOCATION: [id number] INFORMATION:Abd painCOMPARISON: 01/24/16PROCEDURE: CT of the Abdomen [...] or hydronephrosis. No acute abnormali ty.CBC with Elhmhbedondf4984-83-77 13:00:00* Test Item Value Reference Range Interpretation [...] code = ALYMPH) 0.9 K/cumm 0.5-4.6 N Gaines Abs (test code = AMONO) 0.4 K/cumm 0.0-1.2 N Eos Abs (test code = AEOS) 0.16 K/cumm 0.00-0.74 N Baso Abs (test code = ABASO) 0.0 K/cumm 0.00-0.21 N Comprehensive Metabolic Rdhnf0291-76-69 12:52:00* Test Item Value Reference Range Interpretation [...] race is not provided, and the patient isAfrican-Scottish, multiply by 1.212. If sex is not [...] by the National Kidney Found ation,http://nkdep.nih.gov Urinalysis Xfewhpnl7756-28-26 12:11:00* Test Item Value Reference Range Interpretation Comments Color (test code = COLOR) Yellow Yellow,Straw,Pl yellow N Clarity (test code = CLAR) Sl Cloudy Clear A Specific [place] (test code = SPGR) 1.015 1.001-1.035 N [...] = CHARLENE) None /HPF XR FOOT 3+V, GRBTVJLN-WPOI7488-18-13 11:47:19Left hand, 3 viewsHistory: PainComparison: NoneLocation R [...] of acutefracture. Please clinically correlate.XR CHEST 1 RMFC2557-92-89 11:46:40Chest, one viewLOCATION CODE: R 16HISTORY: DyspneaCOMPARISON: [...] the Main Lab for Analysis. POC Glucose, Eujsi4437-02-72 12:10:00* Test Item Value Reference Range Interpretation Comments POC Glucose (test code = POCGLUC) 313 mg/dL 70-115 H Notify RN or MDIf you consider your patient critically ill, the Larry Accu-Chek InformII metershould not be used for Glucose determinations.Draw a venous Glucose and send to the Main Lab for Analysis. POC Glucose, Vihql2965-54-12 12:10:00* Test Item Value Reference Range Interpretation Comments POC Glucose (test code = POCGLUC) 313 mg/dL 70-115 H Repeat TestNotify RN or MDIf you consider your patient critically ill, the Larry Accu-Chek InformII metershould not be used for Glucose determinations.Draw a venous Glucose and send to the Main Lab for Analysis. POC Glucose, Bsrjg7379-80-06 07:51:00* Test Item Value Reference Range Interpretation Comments POC Glucose (test code = POCGLUC) 101 mg/dL 70-115 N If you consider your patient critically ill, the Larry Accu-Chek InformII metershould not be used for Glucose determinations.Draw a venous Glucose and send to the Main Lab for Analysis. Troponin [id number] 07:28:00* Test Item Value Reference Range Interpretation Comments Troponin T (test code = GILLIAN) 0.062 ng/mL 0.000-0.090 N CBC with Fnuytrjawkpg5307-08-16 07:24:00* Test Item Value Reference Range Interpretation [...] code = ALYMPH) 2.0 K/cumm 0.5-4.6 N Gaines Abs (test code = AMONO) 0.4 K/cumm 0.0-1.2 N Eos Abs (test code = AEOS) 0.36 K/cumm 0.00-0.74 N Baso Abs (test code = ABASO) 0.1 K/cumm 0.00-0.21 N Macrocytosis (test code = MACRO) Slight Basic Metabolic Erzff1395-01-65 07:21:00* Test Item Value Reference Range Interpretation [...] race is not provided, and the patient isAfrican-Scottish, multiply by 1.212. If sex is not [...] by the National Kidney Found ation,http://nkdep.nih.gov CK Ekcso7074-81-27 23:10:00* Test Item Value Reference Range Interpretation Comments CK (test code = CK) 53 U/L 26-192 N CK [id number] 23:10:00* Test Item Value Reference Range Interpretation Comments CK (test code = CK) 53 U/L 26-192 N CKMB (test code = CKMB) 2.1 ng/mL 0.0-2.8 N CKMB% (test code = CKMBP) 4.0 % 0.0-3.4 H Troponin [id number] 23:08:00* Test Item Value Reference Range Interpretation Comments Troponin T (test code = GILLIAN) 0.057 ng/mL 0.000-0.090 N POC Glucose, Sfwwa6276-78-35 20:13:00* Test Item Value Reference Range Interpretation Comments POC Glucose (test code = POCGLUC) 345 mg/dL 70-115 H Notify RN or MDIf you consider your patient critically ill, the Larry Accu-Chek InformII metershould not be used for Glucose determinations.Draw a venous Glucose and send to the Main Lab for Analysis. Comprehensive Metabolic Bxdvx2031-44-06 09:57:00* Test Item Value Reference Range Interpretation [...] race is not provided, and the patient isAfrican-Scottish, multiply by 1.212. If sex is not [...] recommended by the National Kidney Found ation,http://nkdep.nih.gov Icb-Ulf6731-69-05 09:54:00* Test Item Value Reference Range Interpretation Comments NT ProBnp (test code = PBNP) 3854 pg/mL 0-124 H CK [id number] 09:54:00* Test Item Value Reference Range Interpretation Comments CK (test code = CK) 74 U/L 26-192 N CK [id number] 09:54:00* Test Item Value Reference Range Interpretation Comments CK (test code = CK) 74 U/L 26-192 N CKMB (test code = CKMB) 2.6 ng/mL 0.0-2.8 N CKMB% (test code = CKMBP) 3.5 % 0.0-3.4 H Troponin [id number] 09:54:00* Test Item Value Reference Range Interpretation Comments Troponin T (test code = GILLIAN) 0.057 ng/mL 0.000-0.090 N CBC with [id number] 09:38:00* Test Item Value Reference Range Interpretation [...] code = ALYMPH) 1.0 K/cumm 0.5-4.6 N Gaines Abs (test code = AMONO) 0.4 K/cumm 0.0-1.2 N Eos Abs (test code = AEOS) 0.26 K/cumm 0.00-0.74 N Baso Abs (test code = ABASO) 0.1 K/cumm 0.00-0.21 N Macrocytosis (test code = MACRO) Slight
[2020-06-15] MEDS ORDERED: POLYETHYLENE GLYCOL 3350 17 GM PACK PO PRN (17:45)
[2020-06-15] MEDS ORDERED: HYDRALAZINE HCL 20 MG/ML VIAL IV ONE (18:00)
[2020-06-15] MEDS ORDERED: SODIUM CHLORIDE 0.9% 1000ML 2,000 ML ONE (18:02)
--- NOTE | 2020-06-15 18:10 | NUR ---
Patient arrived to unit from ER via stretcher, in stable condition, no s/s of distress at this time. Patient able to make needs known. Bed locked and in lowest position, side rails up x3, alarm on, call light placed within reach. Patient instructed to call for assistance if needed, verbalized understanding. will cont to monitor.
--- NOTE | 2020-06-15 18:20 | NUR ---
pt signed consent for hemodialysis.
--- NOTE | 2020-06-15 18:36 | NUR ---
Dialysis started, pt tolerating well. will cont to monitor.
--- NOTE | 2020-06-15 19:20 | NUR ---
Report given to oncoming nurse, pt stable at shift change.
[2020-06-15 19:41] VITALS: BP 106/62
[2020-06-15 20:00] VITALS: BP 106/62
[2020-06-15] MEDS: ACETAMINOPHEN 325 MG TAB PO PRN (20:11)
[2020-06-15] MEDS ORDERED: ACETAMINOPHEN/CODEINE 300MG - 30MG TAB PO PRN (20:30)
--- NOTE | 2020-06-15 21:00 | NUR ---
Patient did 2 hours of Hemodialysis. mold worker pulled 2L. Vital signs stable post dialysis.
[2020-06-15] MEDS: MORPHINE SULFATE 2 MG/ML SYR 1ML IV PRN (21:27)
[2020-06-15 21:49] VITALS: BP 106/62
--- NOTE | 2020-06-15 22:00 | NUR ---
Patient will send list of patient home medications.
[2020-06-15 23:42] LABS: CREATINE KINASE MB 1.9 ng/mL (0-5.0)
[2020-06-16] VITALS (9 sets, daily range): BP systolic 101–197; BP diastolic 57–76
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
[2020-06-16] MEDS: MORPHINE SULFATE 2 MG/ML SYR 1ML IV PRN (06:05)
--- NOTE | 2020-06-16 06:13 | NUR ---
Left voicemail for Dr. Dale routine consult.
--- NOTE | 2020-06-16 06:17 | NUR ---
Called consult for Dr. Peterson via dustless operator.
[2020-06-16 06:18] LABS: BASOPHILS # (AUTO) 0.1 (0.0-0.1); BASOPHILS % 0.7 % (0.0-1.0); EOSINOPHILS # (AUTO) 0.5 (0.0-0.4); EOSINOPHILS % 6.3 % (0.0-6.0); LYMPHOCYTES # (AUTO) 1.3 (1.0-3.2); MEAN CORPUSCULAR HEMOGLOBIN 31.9 pg (28-32); MEAN CORPUSCULAR VOLUME 102.8 fL (81-99); MONOCYTES # (AUTO) 0.5 (0.2-0.8); MONOCYTES % 5.8 % (4.4-11.3); NEUTROPHILS # (AUTO) 6.1 (2.1-6.9); NEUTROPHILS % 71.7 % (38.7-80.0); PLATELET COUNT 281 x10e3/uL (140-360); RED BLOOD COUNT 2.82 x10e6/uL (3.6-5.1); RED CELL DISTRIBUTION WIDTH 13.1 % (11.7-14.4)
--- NOTE | 2020-06-16 06:21 | NUR ---
Spoke with patient's Bradley. He said that he doesn't have the list of home medication at this time. He will call the unit once he get a copy of the list.
[2020-06-16 06:41] LABS: ALBUMIN 2.7 g/dL (3.5-5.0); ALBUMIN/GLOBULIN RATIO 0.8 (0.8-2.0); ANION GAP 17.5 mmol/L (8-16); CALCIUM 8.7 mg/dL (8.4-10.2); CREATININE, SERUM 7.69 mg/dL (0.57-1.11); POTASSIUM 5.5 mmol/L (3.5-5.1)
[2020-06-16 07:10] LABS: CREATINE KINASE MB 1.2 ng/mL (0-5.0)
[2020-06-16 07:37] LABS: CHOL/HDL RATIO 2.8 (3.0-3.6)
[2020-06-16 07:57] LABS: THYROID STIMULATING HORMONE 2.214 uIU/mL (0.350-4.940)
[2020-06-16] MEDS: INSULIN LISPRO 100 UNIT/1 ML 3ML VIAL SQ SCH ×4 (08:02→21:16)
[2020-06-16] MEDS: CYANOCOBALAMIN INJ 1,000 MCG/ML VIAL IM SCH (08:36)
[2020-06-16] MEDS: FAMOTIDINE 20 MG/2 ML VIAL IV SCH ×2 (08:36→16:52)
[2020-06-16] MEDS: DOCUSATE SODIUM 100 MG CAP PO SCH ×2 (08:36→16:52)
[2020-06-16] MEDS ORDERED: THIAMINE HCL INJ 100 MG/ML 2ML VIAL IV SCH (09:00)
[2020-06-16] MEDS: CIPROFLOXACIN (OPTH SOLN) 5 ML BTL OU SCH ×2 (09:00→11:19)
[2020-06-16] MEDS ORDERED: SODIUM CHLORIDE 0.9% 1000ML 2,000 ML ONE (09:33)
--- NOTE | 2020-06-16 10:21 | NUR ---
Discussed patient status w/ Urbano Garcia CADASTRAL ENGINEER and received inpatient order
[2020-06-16] MEDS ORDERED: VALACYCLOVIR HCL 500 MG TAB PO SCH (11:00)
[2020-06-16] MEDS: FOLIC ACID MDV 1 MG in SODIUM CHLORIDE 0.9% 50ML 50 ML IV SCH (11:19)
--- NOTE | 2020-06-16 11:52 | NUR ---
Patient having dialysis and bp remains low. Had morphine previously for pain during an ultrasound. Being monitored by breeding technician
[2020-06-16] MEDS: THIAMINE HCL INJ 100 MG in SODIUM CHLORIDE 0.9% 50ML 50 ML IV SCH (12:00)
[2020-06-16] MEDS ORDERED: FUROSEMIDE80 MG (12:27)
[2020-06-16] MEDS ORDERED: LEVOTHYROXINE75 MCG PO (12:27)
[2020-06-16] MEDS ORDERED: MIDODRINE HCL5 MG PO (12:30)
[2020-06-16] MEDS ORDERED: AMLODIPINE BESY10 MG PO (12:31)
[2020-06-16] MEDS ORDERED: LYRICA75 MG PO (12:31)
[2020-06-16] MEDS ORDERED: TYLENOL # 31 EA PO (12:32)
[2020-06-16] MEDS ORDERED: GABAPENTIN400 MG PO (12:33)
[2020-06-16] MEDS ORDERED: AURYXIA210 MG PO ×2 (12:36→12:39)
[2020-06-16] MEDS ORDERED: TIZANIDINE HCL4 M1 (12:40)
[2020-06-16] MEDS ORDERED: CARVEDILOL12.5 MG PO (12:41)
[2020-06-16] MEDS ORDERED: HYDRALAZINE HCL50 MG (12:42)
[2020-06-16] MEDS ORDERED: ULTRAM 50MG50 MG PO (12:43)
[2020-06-16] MEDS ORDERED: THIAMINE HCL INJ 100 MG in SODIUM CHLORIDE 0.9% 50ML 50 ML IV SCH (13:00)
[2020-06-16] MEDS ORDERED: MIDODRINE HCL 5 MG TABLET PO PRN (13:30)
[2020-06-16] MEDS ORDERED: FERRIC CITRATE PO PRN (13:30)
[2020-06-16] MEDS ORDERED: GABAPENTIN 400 MG CAP PO PRN (13:30)
--- NOTE | 2020-06-16 14:45 | Diagnostic Imaging Report ---
X-ray 3 views of the ankle. HISTORY: Pain. COMPARISON: None available. FINDINGS: There is splint material which obscures optimal assessment of the osseous and soft tissue structures on the AP view. Bones/joints: There is mildly displaced lateral malleolar fracture. Questionable medial and posterior malleolar fractures. There is difficulty assessing the ankle mortise due to ankle rotation. Soft tissues: Soft tissue swelling around the ankle. IMPRESSION: 1. Limited evaluation of the osseous and soft tissue structures an AP view. 2. Mildly displaced lateral malleolar fracture. 3. Questionable medial and posterior malleolar fractures. Signed by: Berto Reinoso MD on 06/16/2020 2:42 PM
[2020-06-16] MEDS: TIZANIDINE HCL 4 MG TAB PO SCH ×2 (15:00→21:00)
[2020-06-16 15:26] LABS: CREATINE KINASE MB 1.1 ng/mL (0-5.0)
--- NOTE | 2020-06-16 16:22 | Consultation ---
DATE OF CONSULTATION: 06/16/2020 Nephrology Consultation REASON FOR CONSULTATION: End-stage kidney disease, on maintenance hemodialysis. HISTORY OF PRESENT ILLNESS: This is a 54-year-old woman with end-stage kidney disease, maintained on hemodialysis at [facility] every Wednesday, , and Saturdays. She also has diabetes mellitus and hypertension. The patient was last dialyzed as an outpatient 5 days ago and did miss her treatment on because of logistic issues. She is currently recuperating at a skilled facility following fracture in her right leg. After she had missed a couple of dialysis treatments, she was referred to the ER here, where labs showed a potassium of 6.6 along with a chest x-ray showing at least some pulmonary edema. She admitted to being short of breath at the time. She has since received hemodialysis in the hospital and is receiving her second treatment today. She clearly feels better in terms of breathing. Denies any shortness of breath, chest pain, abdominal or flank pain, or dysuria. She does have pain in her right broken leg. PAST MEDICAL HISTORY: As above. Also has asthma, dyslipidemia, and orthostatic hypotension. PAST SURGICAL HISTORY: Noted. She does have a hemodialysis fistula in the left arm. FAMILY HISTORY: She is adopted. SOCIAL HISTORY: Denies tobacco, alcohol, or illicit drug use. MEDICATIONS: Reviewed in MAR. REVIEW OF SYSTEMS: Negative, except as noted above in HPI. PHYSICAL EXAMINATION: GENERAL: The patient is fully alert and oriented, currently undergoing dialysis. In no acute distress. VITAL SIGNS: Blood pressure 124/65, pulse 80 per minute, respiration 18 per minute, and she is afebrile. Oxygen saturation 98% on room air. SKIN: Normal turgor. No generalized lesions or rash. HEENT: Normocephalic and atraumatic head. Sclerae are nonicteric. Extraocular movements intact. NECK: Supple without jugular venous distention. CHEST: Auscultation reveals good bilateral air entry anterolaterally. No wheezing heard. CARDIOVASCULAR: Shows S1 and S2 without rub or gallop. ABDOMEN: Soft, obese, but nondistended. EXTREMITIES: Without pitting edema or cyanosis. Right leg is under orthopedic dressing. NEUROLOGICAL: No obvious focal deficits. IMAGING DATA: Chest x-ray reveals prominent interstitial lung markings throughout both lungs, possibly representing vascular congestion. I am unable to open the film in the system. LABORATORY DATA: Hemoglobin 9, white count and platelet count are normal. Labs today show a potassium of 5.1, down from 6.6 yesterday. Sodium 137, bicarb 27, BUN 48, creatinine 7.6, glucose 184, total calcium 8.7, and albumin 2.7. IMPRESSION: 1. Acute hyperkalemia and pulmonary edema secondary to missing routine hemodialysis treatments. Now feeling better after couple of dialysis treatments in the hospital. She is better both symptomatically and by her labs. 2. History of hypertension, current blood pressure is on the low side. Hold blood pressure medications. 3. Anemia secondary to chronic kidney disease, current hemoglobin is stable. 4. Recent fractured right leg, orthopedic surgery being planned sometime next week. 5. We will dialyze the patient next week around her orthopedic surgery to keep her stable both chemically as well as in terms of pulmonary congestion. Thank you for the opportunity to participate in her care. MD CORAL Bangura/LIZA /[id number]
[2020-06-16] MEDS ORDERED: FERRIC CITRATE PO SCH (16:30)
[2020-06-16] MEDS: HYDRALAZINE HCL 25 MG TAB PO SCH ×2 (16:44→16:51)
[2020-06-16] MEDS: CARVEDILOL 12.5 MG TAB PO SCH (16:49)
[2020-06-16] MEDS: PREGABALIN 75 MG CAP PO SCH (16:49)
--- NOTE | 2020-06-16 17:22 | Consultation ---
DATE OF CONSULTATION: Wound Consultation HISTORY OF PRESENT ILLNESS: A 54-year-old female patient, history of end-stage renal disease, on maintenance hemodialysis. The patient has ulcers to the buttocks. Wound consult was called. PAST MEDICAL HISTORY: Diabetes mellitus, hypertension, end-stage renal disease, hyperlipidemia, and history of morbid obesity. PAST SURGICAL HISTORY: Partial hysterectomy and bariatric surgery. ALLERGIES: COCONUT, GLYBURIDE, AND PENICILLIN. REVIEW OF SYSTEMS: All systems reviewed. No complaints reports. PHYSICAL EXAMINATION: VITAL SIGNS: Blood pressure 119/70, pulse of 82. HEENT: Normal. NECK: No JVD. LUNGS: Bilateral air entry normal. CVS: Normal. ABDOMEN: Soft. Bowel sounds normal. EXTREMITIES: Lower extremity, no edema. SKIN: Right buttock, the patient has multiple superficial wounds. The patient gives history of itching and burning, tender to touch, consistent with Herpes genitalis. ASSESSMENT: Right buttock wound, likely Herpes genitalis. PLAN: Keep on Valtrex 500 mg p.o. daily for one week and monitor. Apply Mepilex. MD CLAUDIA Herrmann/MODL /[id number]
--- NOTE | 2020-06-16 23:45 | NUR ---
Date of Service: 06/16/2020 PRIMARY CARE PHYSICIAN: The patient does not have a PCP. OUTPATIENT PHYSICIANS: 1. Outpatient shellfish bed worker, Dr. Kearns. 2. Outpatient orthopedic, Dr. Peterson. 3. Licensed Midwife, Dr. Parker. Family contact: Bradley () [phone]. CONSULTING PHYSICIANS: 1. Saurabh Peterson M.D. with Orthopedics 2. Gerhard Kearns M.D. with Nephrology 3. Erlin Cameron M.D. with Wound Care 4. Vinod Rosenthal M.D. with Cardiology CHIEF COMPLAINT: Missed dialysis. HISTORY OF PRESENT ILLNESS: The patient is a 54-year-old female who initially fell at [facility], apparently without any subsequent surgery there. She has an unstable right ankle fracture. She then transferred to [facility] facility. According to Dr. Peterson, his office staff attempted to reach her all throughout the day on Wednesday in an effort to discuss her potential surgery. The patient called Dr. Peterson on Wednesday wanting to be transferred from [facility] to [facility]. Patient receives hemodialysis regularly on Wednesday, , Saturdays. Dr. Peterson has explained to the patient that she has poor blood supply to her foot, with calcified arteries in her feet. Preoperative Cardiology clearance has not yet been obtained. A chest X-ray had shown moderate left pleural effusion and it was decided patient should be transferred here for hemodialysis. After discussing the case further with Dr. Peterson on 06/16, I ordered Cardiology consultation for preoperative cardiac clearance, as well as evaluation of PVD. Pulmonology consult has been ordered for preoperative pulmonary clearance, as well as evaluation of the left pleural effusion. Dr. Peterson states that he will speak with Anesthesia personally about the patient. She arrived via ambulance from [facility] to [facility] on 06/15/2020, and states that she missed her usual dialysis on . Subsequently on Wednesday she had a fecal impaction and states that there were efforts being made to relieve her of this and she was told that she c ould go on Wednesday at 0930 hours; however, when Wednesday came she states that she "sat in a wheelchair for 3 hours waiting to go to dialysis" and thus was sent here to [facility] for the dialysis. The patient had a recent fall on Wednesday06/07/2020 at home and says that she shattered her right ankle. The patient remarks that she had cardiac clearance from Dr. Iglesias as well as Dr. Sheehan with Cardiology at [facility] in anticipation of having Orthopedic Surgery on the ankle by Dr. Peterson. When they did a chest x-ray, as a part of the clearance process for the surgery and found that she needed dialysis. According to the patient, Dr. Peterson told her that she would be nonweightbearing of the right leg for 2 months after surgery. PAST MEDICAL HISTORY: End-stage renal disease with dialysis for the last 7 years, the patient states [facility] put her on a waiting list for kidney. Hypertension, diabetes, asthma, hyperlipidemia, orthostatic hypotension. ALLERGIES: COCONUT, PLUM, GLYBURIDE, AND PENICILLINS. HOME MEDICATIONS: Not listed. The patient states that her should be able to provide a list. REVIEW OF SYSTEMS: Bilateral eye infection. The patient states her shortness of breath has improved with dialysis. Increased stress lately, problems with her , having to go to the [facility] SNF, has had thoughts of suicide recently. Reports bed sore s on bilateral buttocks and sacrum areas. States she has had some chest pain in the center of her chest, which she attributes to stress. However, none right now. Fecal impaction on Wednesday with a subsequent "huge bowel movement." Complains of having rectal tearing during this process, irritation of her external hemorrhoids, reports she still feels constipated. Unable to ambulate since the ankle fracture, along with pain with movement or any light touch. She states that she fell on 06/07/2020, which caused the right ankle to shatter. Her most recent fall was on 06/15/2020, when she fell out of bed at [facility], hitting her right leg on the bedside table. She has been taking No rco for the pain. She complains of having "hardening" in both lower legs. She has had a persistent headache for the last few days. Known diabetic and states her blood sugar usually runs 100s to 200s at home. PHYSICAL EXAMINATION: VITAL SIGNS: Temperature 98.3, pulse 81, 197/76, respirations 18, SpO2 98% on room air. Height 5 feet 4 inches. Weight 228 pounds. BMI 39.13. GENERAL: Supine in bed. No acute distress. LUNGS: Clear to auscultation. Respiratory pattern even and unlabored. No supplemental oxygen. HEENT: EOMI. NECK: Supple. No thyromegaly, lymphadenopathy, or JVD. CARDIOVASCULAR: Regular rate and rhythm without murmur. ABDOMEN: Bowel sounds positive. Soft, nontender. No obvious distention. No guarding. EXTREMITIES: With 1+ pitting edema. No clubbing or cyanosis. She has a large bulky dressing on the right ankle, is able to move her toes. Palpation of the left lower extremity reveals the aforementioned "hardened" area in the left calf. NEUROLOGICAL: GCS is 15, nonfocal. PSYCHIATRIC: Not tearful, but emotionally depressed. DIAGNOSTIC STUDIES LABORATORY DATA: Reviewed. 06/16: WBC 8.44, hemoglobin 9.0, hematocrit 29, platelets 281, neutrophils 71.7%. Na 137, K 5.5, Cl 98, CO2 27, BUN 48, Cr 7.69, eGFR 5, glucose 184 MjQ6X=12.6%. No HLD per lipid profile. Cardiac Biomarkers were negative x 4 sets. 06/15: WBC 11.38, RBCs 3.09, hemoglobin 10, hematocrit 31.2, platelets 292, neutrophils 80.6%. PT 12.5, INR 0.89, PTT 28.1. Sodium 135, potassium 6.6, chloride 96, CO2 of 24, anion gap 21.6, BUN 81, creatinine 10.64, estimated GFR 4. BUN and creatinine ratio 8, glucose 250. Fingerstick blood glucose level 175, calcium 9.1, total bilirubin 0.6, AST 30, ALT 20, alkaline phosphatase 226. Creatine kinase 96, CK-MB 2.4, troponin I 0.066. Total protein 6.8, albumin 3.1. Repeat of cardiac biomarkers; creatine kinase 74, CK-MB 1.9, troponin I 0.063. Coronavirus PCR collected on 06/15/2020 is pending. Hepatitis Panel pending. IMAGING/OTHER: 06/16 Right Ankle X-ray: 1. Limited evaluation of the osseous and soft tissue structures an AP view. 2. Mildly displaced lateral malleolar fracture. 3. Questionable medial and posterior malleolar fractures. 06/16 Bilateral Lower Extremity Venous Doppler US: Negative for DVT 06/15 12-lead EKG, normal sinus rhythm, heart rate 78. 06/15 Chest x-ray interpretation by radiologist; Re-demonstration of moderate left pleural effusion with left basilar opacity, which most likely represents superimposed atelectasis. No significant interval change when compared to most recent prior examination. Prominent interstitial lung markings throughout both lungs may represent pulmonary vascular. ASSESSMENT AND PLAN: 1. Fluid volume overload, missed hemodialysis: -Dialysis per Nephrology. -06/15 1.7 L removed 2. ESRD, needing hemodialysis on admission: -Dialysis per Nephrology; normally receives HD Wednesday, , Wednesday 3. Life-threatening hyperkalemia: -Admitting Potassium level 6.6; improving with HD. -Hemodialysis per Nephrology. Monitor potassium level. 4. Unstable Right ankle fracture, status post fall on 06/07/2020, ambulatory dysfunction, history of falls: -Orthopedics following, preparations being made for possible surgery -Pain control, morphine sulfate 2 mg IV q.3 hours p.r.n., Tylenol No. 3 q.4 hours p.r.n. for moderate pain. Tylenol q.6 hours p.r.n. for mild pain. -PT eval and treat, maintain fall precautions. -Cardiology consult for preoperative cardiac clearance, as well as evaluation of PVD. -Pulmonology consult for preoperative pulmonary clearance, as well as eval of left pleural effusion. 5. HTN with ESRD: -Hypotension on admission -Blood pressure 197/76. Resume home medications. Monitor blood pressure. 6. Uncontrolled T2DM with ESRD and Hyperglycemia: -AkI4D=66.6%. Renal diabetic diet. -Low-dose sliding scale insulin. Monitor FSBG. 7. Right Buttock Wound, likely Herpes genitalis: -Wound care MD and Wound Care team consult. -Keep on Valtrex 500 mg p.o. daily for one week and monitor. Apply Mepilex. 8. Moderate Left Pleural Effusion, Atelectasis, history of Asthma: -Pulmonology consult. -HD per Nephrology. -Encourage incentive spirometry. -Monitor CXR results 9. History of bariatric surgery with Partial Gastrectomy (1/2 of stomach removed): -Vitamin B12, Folate, and Thiamine due to probable poor absorption. 10. Depression (likely Chronic & Acute/Situational), SI: -Resume antidepressant from home if applicable. -Concrete Mixer Operator Helper visit with patient. Consider Psychiatry consult. -Monitor closely for any other verbalization regarding suicide. 11. Documented hx Hyperlipidemia. -Resume home antihyperlipidemic. -No HLD per lipid profile. 12. Severe Constipation, r/o ileus, +recent Fecal Impaction, +External Hemorrhoids: -Stool softeners, MiraLAX, Dulcolax. -Gastroenterology consult. 13. Bilateral conjunctivitis: -started Ciprofloxacin antibiotic eyedrops as per formulary. 14. Obesity with BMI of 39.13: Dietary restrictions. Prophylaxis: Pepcid, Lovenox, Left lower extremity SCD Inpatient, billing code [id number], time spent 45 minutes.
[2020-06-17] VITALS (8 sets, daily range): BP systolic 94–163; BP diastolic 50–65
[2020-06-17] MEDS ORDERED: BISACODYL 10 MG SUPP PR ONE (00:30)
[2020-06-17] MEDS ORDERED: BISACODYL 5 MG TAB EC PO ONE ×2 (00:30→01:45)
[2020-06-17] MEDS ORDERED: CITRATE OF MAGNESIA 300ML BOTTLE PO ONE (05:30)
--- NOTE | 2020-06-17 06:58 | NUR ---
RECEIVED BEDSIDE SHIFT REPORT FROM OFF GOING NURSE. PATIENT IS RESTING IN BED. NO ACUTE DISTRESS NOTED. CALL LIGHT WITHIN REACH. BED IN THE LOWEST POSITION.
[2020-06-17 07:41] LABS: BASOPHILS # (AUTO) 0.1 (0.0-0.1); BASOPHILS % 0.7 % (0.0-1.0); EOSINOPHILS # (AUTO) 0.4 (0.0-0.4); EOSINOPHILS % 5.2 % (0.0-6.0); HEMATOCRIT 29.1 % (34.2-44.1); HEMOGLOBIN 9.1 g/dL (12.0-16.0); LYMPHOCYTES # (AUTO) 1.4 (1.0-3.2); LYMPHOCYTES % 16.8 % (18.0-39.1); MEAN CORPUSCULAR HEMOGLOBIN 31.9 pg (28-32); MEAN CORPUSCULAR HGB CONC 31.3 g/dL (31-35); MEAN CORPUSCULAR VOLUME 102.1 fL (81-99); MONOCYTES # (AUTO) 0.7 (0.2-0.8); MONOCYTES % 8.4 % (4.4-11.3); NEUTROPHILS # (AUTO) 5.6 (2.1-6.9); NEUTROPHILS % 68.5 % (38.7-80.0); PLATELET COUNT 258 x10e3/uL (140-360); RED BLOOD COUNT 2.85 x10e6/uL (3.6-5.1); RED CELL DISTRIBUTION WIDTH 12.6 % (11.7-14.4)
[2020-06-17 08:15] LABS: ALBUMIN 2.7 g/dL (3.5-5.0); ALBUMIN/GLOBULIN RATIO 0.8 (0.8-2.0); ANION GAP 16.3 mmol/L (8-16); CALCIUM 8.5 mg/dL (8.4-10.2); CREATININE, SERUM 6.17 mg/dL (0.57-1.11); POTASSIUM 5.3 mmol/L (3.5-5.1)
[2020-06-17] MEDS: INSULIN LISPRO 100 UNIT/1 ML 3ML VIAL SQ SCH ×4 (08:15→21:00)
[2020-06-17] MEDS: ACETAMINOPHEN/CODEINE 300MG - 30MG TAB PO PRN (08:15)
[2020-06-17] MEDS: CARVEDILOL 12.5 MG TAB PO SCH ×2 (08:16→15:52)
[2020-06-17] MEDS: THIAMINE HCL INJ 100 MG in SODIUM CHLORIDE 0.9% 50ML 50 ML IV SCH (08:16)
[2020-06-17] MEDS: FAMOTIDINE 20 MG/2 ML VIAL IV SCH ×2 (08:16→16:30)
[2020-06-17] MEDS: CYANOCOBALAMIN INJ 1,000 MCG/ML VIAL IM SCH (08:16)
[2020-06-17] MEDS: HYDRALAZINE HCL 25 MG TAB PO SCH ×3 (08:17→21:12)
[2020-06-17] MEDS: PREGABALIN 75 MG CAP PO SCH ×2 (08:19→16:30)
[2020-06-17] MEDS: DOCUSATE SODIUM 100 MG CAP PO SCH ×3 (08:19→21:13)
[2020-06-17] MEDS: AMLODIPINE BESYLATE 10 MG TAB PO SCH (08:19)
[2020-06-17] MEDS: TIZANIDINE HCL 4 MG TAB PO SCH ×3 (08:20→21:13)
[2020-06-17] MEDS ORDERED: LEVOTHYROXINE SODIUM 75 MCG TAB PO SCH (09:00)
[2020-06-17] MEDS: CIPROFLOXACIN (OPTH SOLN) 5 ML BTL OU SCH ×2 (09:00→15:52)
[2020-06-17] MEDS: FOLIC ACID MDV 1 MG in SODIUM CHLORIDE 0.9% 50ML 50 ML IV SCH (09:09)
[2020-06-17] MEDS: SODIUM BICARBONATE 650 MG TAB PO SCH ×2 (09:10→16:30)
--- NOTE | 2020-06-17 09:20 | Progress Note ---
DATE: 06/17/2020 Renal Progress Note SUBJECTIVE: Followed for end-stage renal disease, on hemodialysis Wednesday, , Wednesday in the outpatient setting. The patient came in on Wednesday evening with hyperkalemia and fluid overload, had urgent dialysis on Wednesday and then also had a dialysis treatment yesterday since she only tolerated 2 hours of dialysis on Wednesday. The patient is normally Wednesday, , and Wednesday. Does not require any urgent dialysis today. Will likely be okay till tomorrow. Has no nausea, no vomiting, no shortness of breath. OBJECTIVE: VITAL SIGNS: Have been noted and are stable. Blood pressure is 145/65, 66 pulse, afebrile. LUNGS: Clear to auscultation bilaterally. CARDIOVASCULAR: S1 and S2. No rub. ABDOMEN: Soft and nontender. EXTREMITIES: No edema. Right lower extremity is in a cast. LABORATORY DATA: Hemoglobin 9.1 and hematocrit 29.1. Chemistries; sodium 135, potassium 5.3, chloride 98, bicarb 26, BUN 34, and creatinine 6.17. IMPRESSION AND PLAN: 1. End-stage renal disease. We will continue to provide dialysis Wednesday, , and Wednesday. Next dialysis will be tomorrow. 2. Hypertension, controlled blood pressure. Continue current medicines. 3. Anemia of chronic disease, stable. We will continue to monitor. 4. Hyperkalemia, mild degree. Potassium is down to 5.3. We will give one dose of Kayexalate and we will place on oral sodium bicarbonate tablets, and we will do dialysis again tomorrow. Thank you once again. MD OSWALDO Escamilla/MODL /[id number]
--- NOTE | 2020-06-17 09:21 | NUR ---
Pt unavailable at this time. Pt's nurse performing procedure bedside. I will follow up as able. ETHAN THOMAS Mold Maker Apprentice [facility] Care Department O: [phone]
[2020-06-17] MEDS ORDERED: SOD POLYSTYRENE SULFONATE SUSP 15 GM/60 ML BTL PO ONE (09:30)
[2020-06-17 09:42] LABS: FERRITIN 1069.71 ng/mL (4.63-204.00)
--- NOTE | 2020-06-17 13:00 | NUR ---
ASSESSMENT: Spiritual concern Pt hopeful for successful procedure and safe rehabilitation. Pt states she attends [employer]. Pt states she has a five y/o son, ZORAN. Pt became tearful when discussing her child. Pt states she and her are experiencing marital issues, especially concerning finances. Pt requested follow-up visits. Intervention: Provided empathic listening and pastoral presence. Facilitated identification of emotions. Provided prayer and information on how to reach forestry fire aide, if needed. Outcome: Pt expressed appreciation for support. Will follow as able. ETHAN THOMAS Verification Specialist Spiritual Care Department O: [phone]
[2020-06-17] MEDS: FERROUS SULFATE 325 MG TAB PO SCH ×2 (14:17→21:13)
--- NOTE | 2020-06-17 15:40 | NUR ---
WOUND CARE CONSULT FOR 54 YO FEMALE HX OF ESRD,VOLUME OVERLOAD,HYPER KALEMIA REAGAN 18 0N CONSERVATIVE PUP STATUS AND INTERVENTIONS AND VISCO MATTRESS LABS: WBC-8.14 HGB-9.1 GLUCOSE-258 SKIN ASSESSMENT COMPLETE PATIENT PRESENTS WITH RIGHT GLUTE DENUDED R/T MOISTURE IRRITATION AND LOOSE STOOL LEFT GLUTE IRRITATED AND RED R/T MOISTURE IRRITATION AND LOOSE STOOL RECOMMENDATIONS: NURSING TO CONTINUE TO MAINTAIN CONSERVATIVE PUP STATUS AND INTERVENTIONS AND VISCO MATTRESS NURSING TO CONTINUE TO ASSIST PATIENT OUT OF BED FOR MEALS AND MUCH TOLERATED NURSING TO CONTINUE TO ASSIST PATIENT NEEDED WITH MEALS AND NUTRITIONAL SUPPLEMENTS TO ENSURE PROPER REQUIREMENTS FOR HEALING NURSING TO CONTINUE TO OFFLOAD FEET AND HEELS NEEDED WITH PILLOW SUSPENSION WHEN IN BED NURSING TO CLEAN RIGHT GLUTE DENUDED LEFT GLUTE IRRITATED AND RED WITH NORMAL SALINE DAILY AND APPLY VENELEX OINTMENT AND ALLEVYN FOAM DRESSING Addendum: 06/17/20 at 1546 by Mike Cruz RN Amended: Links added.
--- NOTE | 2020-06-17 19:12 | NUR ---
BEDSIDE SHIFT REPORT GIVEN TO ONCOMING NURSE. PATIENT IS IN STABLE CONDITION, NO ACUTE DISTRESS NOTED. CALL LIGHT WITHIN REACH. BED IN THE LOWEST POSITION.
--- NOTE | 2020-06-17 19:39 | Consultation ---
DATE OF CONSULTATION: 06/17/2020 Cardiology Consult. REASON FOR CONSULT: Preoperative assessment. CHIEF COMPLAINT: Diarrhea. HISTORY OF PRESENT ILLNESS: A 54-year-old female, who was in a nursing home facility, was brought in because she missed her dialysis, was found to be hyperkalemic to 6.6 on admission, received dialysis, and is now doing better. She was noted to have right lower extremity swelling and noted to have lateral malleolar fracture of the right lower extremity as well as borderline elevated BNP, who was consulted for preoperative risk assessment. She denies any ongoing chest pain or shortness of breath. No prior history of SC per the patient. PAST MEDICAL HISTORY: End-stage renal disease, hypertension, diabetes, hyperlipidemia, status post bariatric surgery, fistula surgery, history of decubitus ulcers. SOCIAL HISTORY: Does not smoke, drink, or abuse drugs. FAMILY HISTORY: Noncontributory. HOME MEDICATIONS: Reviewed. ALLERGIES: GLYBURIDE AND PENICILLIN. REVIEW OF SYSTEMS: As per HPI, otherwise negative. PHYSICAL EXAMINATION: VITAL SIGNS: Temperature afebrile, pulse 79, respiratory rate 18, blood pressure 118/59, saturating 100% on room air. GENERAL: Middle-aged female, no acute distress. CARDIOVASCULAR: Regular rate and rhythm. No murmurs, rubs, or gallops. LUNGS: Clear to auscultation bilaterally. ABDOMEN: Soft, nontender, nondistended. NEURO and PSYCH: Alert and oriented. INPATIENT MEDICATIONS: Reviewed. LABORATORY DATA: Reviewed. Troponin is negative. IMAGING DATA: Reviewed. Chest x-ray on admission showed moderate left pleural effusion with left basilar opacity, likely atelectasis, prominent lung markings suspicious of pulmonary vascular congestion. TELEMETRY DATA: Reviewed, shows normal sinus rhythm. ASSESSMENT/PLAN: 1. Preoperative risk assessment. 2. End-stage renal disease. 3. Hypertension. 4. Hyperlipidemia. 5. Diabetes. 6. Abnormal EKG. PLAN: EKG reviewed shows possible previous anterior SC. The patient does not have any history of SC, given her risk factors and abnormal EKG. We will get an echocardiogram to complete her preoperative cardiovascular risk assessment prior to possible orthopedic surgery, currently stable. No further cardiovascular testing other than echocardiogram is needed. MD ANKUR Cade/LIZA De Leon: 06/17/2020 18:15:32 /[id number]
[2020-06-18] VITALS (7 sets, daily range): BP systolic 115–174; BP diastolic 55–76
[2020-06-18] MEDS: ACETAMINOPHEN/CODEINE 300MG - 30MG TAB PO PRN ×2 (02:57→17:45)
[2020-06-18] MEDS: LEVOTHYROXINE SODIUM 75 MCG TAB PO SCH (05:35)
[2020-06-18 05:54] LABS: BASOPHILS # (AUTO) 0.1 (0.0-0.1); BASOPHILS % 0.7 % (0.0-1.0); EOSINOPHILS # (AUTO) 0.5 (0.0-0.4); HEMATOCRIT 26.9 % (34.2-44.1); HEMOGLOBIN 8.6 g/dL (12.0-16.0); LYMPHOCYTES # (AUTO) 1.4 (1.0-3.2); LYMPHOCYTES % 15.9 % (18.0-39.1); MEAN CORPUSCULAR HEMOGLOBIN 32.7 pg (28-32); MEAN CORPUSCULAR VOLUME 102.3 fL (81-99); MONOCYTES # (AUTO) 0.6 (0.2-0.8); MONOCYTES % 6.6 % (4.4-11.3); NEUTROPHILS # (AUTO) 6.2 (2.1-6.9); NEUTROPHILS % 70.5 % (38.7-80.0); PLATELET COUNT 246 x10e3/uL (140-360); RED BLOOD COUNT 2.63 x10e6/uL (3.6-5.1); RED CELL DISTRIBUTION WIDTH 12.7 % (11.7-14.4)
[2020-06-18 06:51] LABS: ANION GAP 19.4 mmol/L (8-16); CALCIUM 8.4 mg/dL (8.4-10.2); CREATININE, SERUM 7.33 mg/dL (0.57-1.11); MAGNESIUM 3.3 MG/DL (1.3-2.1); PHOSPHORUS 6.6 MG/DL (2.3-4.7); POTASSIUM 4.4 mmol/L (3.5-5.1)
--- NOTE | 2020-06-18 07:38 | NUR ---
RECEIVED BEDSIDE SHIFT REPORT FROM FLOOR NURSE. PATIENT IS RESTING IN BED. NO ACUTE DISTRESS NOTED AT THIS TIME. CALL LIGHT WITHIN REACH. BED IN THE LOWEST POSITION.
[2020-06-18 07:41] LABS: ALBUMIN 3.2 g/dL (3.5-5.0); ALBUMIN/GLOBULIN RATIO 1.2 (0.8-2.0)
[2020-06-18] MEDS: CARVEDILOL 12.5 MG TAB PO SCH ×2 (08:00→16:49)
[2020-06-18] MEDS: INSULIN LISPRO 100 UNIT/1 ML 3ML VIAL SQ SCH ×4 (08:30→20:58)
[2020-06-18] MEDS: CYANOCOBALAMIN INJ 1,000 MCG/ML VIAL IM SCH (08:40)
[2020-06-18] MEDS: FAMOTIDINE 20 MG/2 ML VIAL IV SCH ×2 (08:40→16:48)
[2020-06-18] MEDS: SODIUM BICARBONATE 650 MG TAB PO SCH ×2 (08:41→16:49)
[2020-06-18] MEDS: FERROUS SULFATE 325 MG TAB PO SCH ×3 (08:41→20:42)
[2020-06-18] MEDS: TIZANIDINE HCL 4 MG TAB PO SCH ×3 (08:41→21:33)
[2020-06-18] MEDS: PREGABALIN 75 MG CAP PO SCH ×2 (08:41→16:49)
[2020-06-18] MEDS: CIPROFLOXACIN (OPTH SOLN) 5 ML BTL OU SCH ×2 (08:41→16:49)
[2020-06-18] MEDS: DOCUSATE SODIUM 100 MG CAP PO SCH ×3 (08:41→20:42)
[2020-06-18] MEDS: HYDRALAZINE HCL 25 MG TAB PO SCH ×3 (08:43→20:42)
[2020-06-18] MEDS: AMLODIPINE BESYLATE 10 MG TAB PO SCH (09:00)
--- NOTE | 2020-06-18 09:00 | NUR ---
IV INFUSIONS THIAMINE AND FOLIC ACID SCHEDULED FOR DAILY WILL BE ADMINISTERED AFTER HD TODAY.
--- NOTE | 2020-06-18 10:00 | NUR ---
PATIENT ASSISTED TO REPOSITION TO THE RIGHT SIDE. SHE IS ABLE TO TURN ON HER OWN. ENCOURAGED PATIENT TO TURN Q 2 HOURS SO THE WOUNDS ON HER SACRUM CAN HEAL.
--- NOTE | 2020-06-18 10:46 | Consultation ---
DATE OF CONSULTATION: Pulmonary Critical Care Consultation CHIEF COMPLAINT: End-stage renal disease and loculated left pleural effusion. HISTORY OF PRESENT ILLNESS: The patient is a 54-year-old woman. She has a history of asthma that required a rescue inhaler in the past. She has never used maintenance inhalers. She has never been hospitalized for asthma. Earlier this year, the patient had a CT scan of her abdomen and pelvis that showed small to moderate loculated left pleural effusion. The patient is not aware of this problem in the past and does not report any prior infection or empyema. She came to the hospital after missing several days of dialysis. She became uremic and apparently fell injuring her right ankle. After arrival, she required dialysis for hyperkalemia and uremia. She notes improvement in her dizziness and dyspnea after the dialysis. The patient was evaluated by Orthopedics and needed surgery for her ankle. PAST SURGICAL HISTORY: 1. Status post partial hysterectomy. 2. Status post bariatric surgery. 3. Status post left hand surgery. PAST MEDICAL HISTORY: 1. End-stage renal disease x7 years. 2. Hypertension. 3. Diabetes. 4. Intermittent asthma requiring a rescue inhaler. FAMILY HISTORY: No family history. SOCIAL HISTORY: The patient has never been a smoker. She is not a drinker. ALLERGIES: THE PATIENT REPORTS BEING ALLERGIC TO PENICILLINS AND GLYBURIDE. REVIEW OF SYSTEMS: She denies fevers. She did have dizziness prior to coming in. She also fell. She has some dyspnea. She does not complain of cough. There is no chest pain. She has no abdominal pain. She has no nausea or vomiting. She does have pain in her ankle after injury and a fracture. PHYSICAL EXAMINATION: VITAL SIGNS: Blood pressure is 174/64. Saturation is 97% and the pulse is 74. HEENT: Shows no facial swelling or erythema. LYMPHATIC: Shows no submandibular, cervical, or supraclavicular adenopathy. CARDIAC: Reveals regular rate and rhythm with normal S1 and S2. LUNGS: Auscultation of lungs reveals rhonchorous breath sounds bilaterally. There is no wheezing. ABDOMEN: Soft and nontender. There is no rebound or guarding. EXTREMITIES: Shows no leg edema. Her left ankle is immobilized. LABORATORY DATA: White blood cell count is 8.8 and hemoglobin is 8.6. The platelet count is 246. The BUN to creatinine ratio is 42 to 7.33. Other electrolytes are within normal limits. RADIOGRAPHIC DATA: Ankle x-ray shows a mildly displaced lateral malleolar fracture. There may be a medial malleolar and posterior malleolar fracture as well. Chest x-ray shows small left pleural effusion that may be loculated. There is some associated atelectasis. IMPRESSION: 1. Chronic left pleural effusion with probable loculation and some underlying atelectasis. 2. Mild persistent asthma. 3. End-stage renal disease. 4. Trimalleolar fracture of the ankle. 5. Hypertension. 6. Diabetes. PLAN: 1. CT of the chest without contrast to evaluate extent of the pleural effusion versus atelectasis. 2. Continue dialysis as needed. 3. Rescue inhaler as needed. 4. Oxygen as needed. MD ELIUD Mathew/GEOVANNYL /[id number]
--- NOTE | 2020-06-18 11:41 | Diagnostic Imaging Report ---
EXAM: CT Chest WITHOUT intravenous contrast 06/18/2020 10:30 AM INDICATION: ^Loculated left pleural effusion ^[id number] ^1030 COMPARISON: Chest x-ray dated 06/15/2020. TECHNIQUE: Chest was scanned utilizing a multidetector helical scanner from the lung apex through the level of the adrenal glands without administration of IV contrast. Coronal and sagittal reformations were obtained. Routine protocol was performed. IV CONTRAST: None RADIATION DOSE: Total DLP: 557 mGy*cm. Dose modulation, iterative reconstruction, and/or weight based adjustment of the mA/kV was utilized to reduce the radiation dose to as low as reasonably achievable. COMPLICATIONS: None FINDINGS: LINES/ TUBES: None. LUNGS, PLEURA AND AIRWAYS: Central airways are patent. There is a moderate left pleural effusion with no evidence of loculations. Hounsfield units of under 20 are consistent with simple free fluid. Atelectasis of the left lower lobe is noted. Superimposed consolidation given presence of air bronchograms is difficult to exclude. Negative for pneumothorax. Negative for right pleural effusion. Trace basilar atelectasis/scarring is noted. Within the aerated lung no suspicious nodule or mass is identified. HEART AND MEDIASTINUM: The thyroid gland contains a few calcifications. No mediastinal, hilar or axillary lymphadenopathy. The heart is normal in size.. There is no pericardial effusion. Diffuse coronary artery calcifications are noted. UPPER ABDOMEN: Diffuse calcifications within the arterial branches of the celiac artery are noted. BONES: Negative for acute osseous antibody. Moderate multilevel degenerative disease of the spine are noted. No suspicious lytic or blastic lesion. SOFT TISSUES: Unremarkable. IMPRESSION: 1. Moderate left pleural effusion. No evidence of loculations. Small effusion was noted on CT dated 12/11/2019. 2. Atelectasis of the left lower lobe is noted with air bronchograms. Superimposed infection/consolidation or difficult to exclude. 3. Incidentally noted punctate thyroid calcifications. Signed by: Devan Casillas MD on 06/18/2020 11:37 AM
[2020-06-18] MEDS: SEVELAMER CARBONATE 800 MG TAB PO SCH ×2 (12:06→16:49)
--- NOTE | 2020-06-18 12:12 | Progress Note ---
DATE: 06/18/2020 Renal Progress Note SUBJECTIVE: Followed for end-stage renal disease. Tolerating dialysis Wednesday, , and Wednesday per her schedule. The patient is no longer fluid overloaded. Will have dialysis treatment later today. No nausea, no vomiting, no shortness of breath. OBJECTIVE: VITAL SIGNS: Have been noted. Blood pressure is 170s/60s, 74 pulse, afebrile. LUNGS: Clear to auscultation bilaterally. CARDIOVASCULAR: S1, S2. No rub. ABDOMEN: Soft and nontender. EXTREMITIES: No edema. LABORATORY DATA: Reviewed. Hemoglobin slightly low at 8.6, may be dilutional component. Potassium is 4.4, BUN is 42 and creatinine is 7.3, phosphorus 6.6, calcium 8.4. IMPRESSION AND PLAN: 1. End-stage renal disease. Continue dialysis Wednesday, , and Wednesday. 2. Hypertension. Continue home medications. 3. Anemia of chronic disease. We will consider adding Epogen once the blood pressure is better controlled as well as ultrafilter with dialysis to help improve the hemoglobin. There is likely a dilutional component as well. 4. Hyperphosphatemia. Make sure the patient is taking her phosphorus binders. MD OSWALDO Escamilla/MODL /[id number]
--- NOTE | 2020-06-18 13:54 | NUR ---
ASSESSMENT: Spiritual distress Pt disappointed in the possibility of not having surgery. Pt laments concerning her multiple health issues. Intervention: Provided empathic listening. Outcome: Pt expressed appreciation for continuing support. Will continue to follow as able. ETHAN THOMAS Hand Stapler Spiritual Care Department O: [phone]
--- NOTE | 2020-06-18 14:27 | NUR ---
CIPRO EYE DROPS DELIVERED TO NURSE AT THIS TIME.
--- NOTE | 2020-06-18 15:40 | NUR ---
DIALYSIS NURSE HERE TO DIALYZE PATIENT.
--- NOTE | 2020-06-18 18:03 | NUR ---
Nutrition Intervention Note RD Recommendation(s) for Physician: - Continue current diet - Nepro BID for adequacy Plan of Care: RD following, monitoring for tolerance and adequacy, ONS rec's Nutrition reason for involvement: DX: ESRD RD Assessment 06/18: 54 YOF admitted for missed HD tx admitted for dialysis needs and hyperkalemia. Pt seen today for ESRD dx on admit. Noted poor intake, currently 25-50% of meals. Pt reports poor intake per food preferences and diet restrictions. Pt food preferences obtain and pt receptive to Nepro, requests to only receive BID- RD to order. Pt denies GI distress today, several BMs yesterday noted. Pt reports UBW of 94kg dry weight, no wt loss noted. All questions and concerns addressed at time of visit. Chart reviewed. Will continue to monitor. Principal Problems/Diagnoses: ESRD, hyperkalemia, volume overload PMH: ESRD on HD, HTN, DM, HLD, orthostatic hypotension, bariatric surgery GI: LBM 06/17 x 7 Skin: bilateral gluteal redness Labs: 06/18: Na 136, K 4.4, BUN 42, Cr 7.33, Gluc 126, Phos 6.6, Mg 3.3, POC Gluc 81-145 Meds: Feosol, renvela, lispro, Na bicarb, pepcid, synthroid, IV thiamine, IV folic acid, miralax, morphine, colace, gabapentin, zofran Ht: 64 in Wt: 224.06 lb BMI: 38.5 kg/m2 IBW: 120 lb Malnutrition Evaluation (06/18/20) The patient does not meet criteria for a specified degree of malnutrition at this time. Will re-evaluate at follow-up as appropriate. Energy intake: moderate <75% of estimated energy requirements for >7 days Weight loss: no reported wt loss, UBW 94 kg Fat loss: none, ample skinfold thickness to arm, bulging eye pads Muscle loss: none, shoulder round Supporting Evidence: Fluid accumulation: none, fluid shifts related to HD Functional Status: not assessed Nutrition Prescription (Diet Order):1800 ADA, Renal Estimated Nutritional Needs: [id number] calories/day (22-25 kcal/kg IBW) 82-109 g protein/day (1.5-2 g pro/kg IBW) Diet Adequacy: Not meeting calorie needs, Not meeting protein needs Diet Tolerance: tolerating po Diet Education Needs Assessment: Diet education indicated, but patient not appropriate for education at this time. Pt martggy on HD, will continue to monitor for diet education needs at follow up. Nutrition Care Level: Moderate Nutrition Diagnosis: Inadequate energy and protein intake related to current medical condition as evidenced by not meeting needs. Goal: Patient will meet 75-100% of estimated needs by follow up Progress: N/A Interventions: -Mineral modified diet, Commercial beverage, Recommended Modifications, Multivitamin/mineral supplement therapy, Collaboration with other providers Monitoring/Evaluation: -Total energy intake, Total protein intake, Modified diet, Liquid supplement, Weight change Signed: Reyna Maya RD, LD, CNSC
[2020-06-18] MEDS: ONDANSETRON HCL INJ 2MG/ML 2ML 2 MG/ML VIAL IV PRN (18:07)
[2020-06-18] MEDS ORDERED: SODIUM CHLORIDE 0.9% 250ML 250 ML ONE (18:27)
--- NOTE | 2020-06-18 19:17 | NUR ---
BEDSIDE SHIFT REPORT GIVEN TO ONCOMING NURSE. RECEIVING NURSE NOTIFIED THAT THIAMINE/FOLIC ACID INFUSION IS TO BE ADMINISTERED AFTER DIALYSIS, MEDICATION ON PATIENT'S BIN. PATIENT IS RESTING IN BED, NO S/S OF DISTRESS NOTED. CALL LIGHT WITHIN REACH. BED IN THE LOWEST POSITION.
[2020-06-18] MEDS: FOLIC ACID MDV 1 MG in SODIUM CHLORIDE 0.9% 50ML 50 ML IV SCH (20:33)
[2020-06-18] MEDS: TEMAZEPAM 7.5 MG CAP PO PRN (20:43)
[2020-06-18] MEDS: THIAMINE HCL INJ 100 MG in SODIUM CHLORIDE 0.9% 50ML 50 ML IV SCH (23:31)
[2020-06-19] VITALS (8 sets, daily range): BP systolic 93–181; BP diastolic 50–67
--- NOTE | 2020-06-19 01:53 | NUR ---
Date of Service: 06/17/2020 PRIMARY CARE PHYSICIAN: The patient does not have a PCP. OUTPATIENT PHYSICIANS: 1. Outpatient spray painter helper, Dr. Kearns. 2. Outpatient orthopedic, Dr. Peterson. 3. Imaging Engineer, Dr. Parker. Family contact: Bradley () [phone]. CONSULTING PHYSICIANS: 1. Saurabh Peterson M.D. with Orthopedics 2. Gerhard Kearns M.D. with Nephrology 3. Erlin Cameron M.D. with Wound Care 4. Vinod Rosenthal M.D. with Cardiology 5. Clyde Barrios M.D. with Pulmonology 6. Costa Miles M.D. with Gastroenterology CHIEF COMPLAINT: Missed dialysis. REVIEW OF SYSTEMS: Bilateral eye infection. The patient states her shortness of breath has improved with dialysis. Reports that fluid has been in her lungs since November. States "someone told me that I have a tumor in my lungs". Increased stress lately, problems with her , having to go to the [facility], has had thoughts of suicide recently. Reports bed sore s on bilateral buttocks and sacrum areas. States she has had some chest pain in the center of her chest, which she attributes to stress. However, none right now. External hemorrhoids, reports she still feels constipated. Unable to ambulate since the ankle fracture occurred, along with pain with movement or any light touch. She states that she fell on 06/07/2020, which caused the right ankle to shatter. Her most recent fall was on 06/15/2020, when she fell out of bed at [facility], hitting her right leg on the bedside table. She has been taking [place] for the pain. She complains of having "hardening" in both lower legs. PHYSICAL EXAMINATION: VITAL SIGNS: Temperature 98.1, pulse 73, 129/52, respirations 20, SpO2 95% on room air. Height 5 feet 4 inches. Weight 228 pounds. BMI 39.13. GENERAL: Supine in bed. No acute distress. LUNGS: Clear to auscultation. Respiratory pattern even and unlabored. No supplemental oxygen. HEENT: EOMI. NECK: Supple. No thyromegaly, lymphadenopathy, or JVD. CARDIOVASCULAR: Regular rate and rhythm without murmur. ABDOMEN: Bowel sounds positive. Soft, nontender. No obvious distention. No guarding. EXTREMITIES: With 1+ pitting edema. No clubbing or cyanosis. She has a large bulky dressing on the right ankle, is able to move her toes. Palpation of the left lower extremity reveals the aforementioned "hardened" area in the left calf . NEUROLOGICAL: GCS is 15, nonfocal. PSYCHIATRIC: Not tearful, but emotionally depressed. DIAGNOSTIC STUDIES LABORATORY DATA: Reviewed. 06/17: Lab Holiday 06/16: WBC 8.44, hemoglobin 9.0, hematocrit 29, platelets 281, neutrophils 71.7%. Na 137, K 5.5, Cl 98, CO2 27, BUN 48, Cr 7.69, eGFR 5, glucose 184 PxD3X=84.6%. No HLD per lipid profile. Cardiac Biomarkers were negative x 4 sets. 06/15: WBC 11.38, RBCs 3.09, hemoglobin 10, hematocrit 31.2, platelets 292, neutrophils 80.6%. PT 12.5, INR 0.89, PTT 28.1. Sodium 135, potassium 6.6, chloride 96, CO2 of 24, anion gap 21.6, BUN 81, creatinine 10.64, estimated GFR 4. BUN and creatinine ratio 8, glucose 250. Fingerstick blood glucose level 175, calcium 9.1, total bilirubin 0.6, AST 30, ALT 20, alkaline phosphatase 226. Creatine kinase 96, CK-MB 2.4, troponin I 0.066. Total protein 6.8, albumin 3.1. Repeat of cardiac biomarkers; creatine kinase 74, CK-MB 1.9, troponin I 0.063. Coronavirus PCR collected on 06/15/2020 is pending. Hepatitis Panel pending. IMAGING/OTHER: 06/17 Echocardiogram: (preliminary) Estimated EF 55% 06/16 Right Ankle X-ray: 1. Limited evaluation of the osseous and soft tissue structures an AP view. 2. Mildly displaced lateral malleolar fracture. 3. Questionable medial and posterior malleolar fractures. 06/16 Bilateral Lower Extremity Venous Doppler US: Negative for DVT 06/15 12-lead EKG, normal sinus rhythm, heart rate 78. 06/15 Chest x-ray interpretation by radiologist; Re-demonstration of moderate left pleural effusion with left basilar opacity, which most likely represents superimposed atelectasis. No significant interval change when compared to most recent prior examination. Prominent interstitial lung markings throughout both lungs may represent pulmonary vascular. ASSESSMENT AND PLAN: 1. Fluid volume overload, missed hemodialysis: -Dialysis per Nephrology. 2. ESRD, needing hemodialysis on admission: -Dialysis per Nephrology; normally receives HD Wednesday, , Wednesday 3. Life-threatening hyperkalemia: -Admitting Potassium level 6.6; improving with HD. -Hemodialysis per Nephrology. Monitor potassium level. 4. Unstable Right ankle fracture, status post fall on 06/07/2020, ambulatory dysfunction, history of falls: -Orthopedics following, preparations for possible surgery; need Cardiology & Pulmonary Clearance -Pain control, morphine sulfate 2 mg IV q.3 hours p.r.n., Tylenol No. 3 q.4 hours p.r.n. for moderate pain. Tylenol q.6 hours p.r.n. for mild pain. -PT eval and treat, maintain fall precautions. -Cardiology consult for preoperative cardiac clearance, as well as evaluation of PVD. -Pulmonology consult for preoperative pulmonary clearance, as well as eval of left pleural effusion. 5. HTN with ESRD: -Hypotension on admission -Blood pressure 129/52. Resume home medications. Monitor blood pressure. 6. Uncontrolled T2DM with ESRD and Hyperglycemia: -IyV3R=27.6%. Renal diabetic diet. -Low-dose sliding scale insulin. Monitor FSBG. 7. Right Buttock Wound, likely Herpes genitalis: -Wound care MD and Wound Care team consult. -Keep on Valtrex 500 mg p.o. daily for one week and monitor. Apply Mepilex. 8. Moderate Left Pleural Effusion, Atelectasis, history of Asthma: -Pulmonology consult for preoperative pulmonary clearance, as well as eval of left pleural effusion. -HD per Nephrology. -Encourage incentive spirometry. -Monitor CXR results 9. History of bariatric surgery with Partial Gastrectomy (1/2 of stomach removed): -Vitamin B12, Folate, and Thiamine due to probable poor absorption. 10. Depression (likely Chronic & Acute/Situational), SI: -Resume antidepressant from home if applicable. -Dielectric Testing Machine Operator visit with patient. Consider Psychiatry consult. -Monitor closely for any other verbalization regarding suicide. 11. Documented hx Hyperlipidemia. -Resume home antihyperlipidemic. -No HLD per lipid profile. 12. Severe Constipation, r/o ileus, +recent Fecal Impaction, +External Hemorrhoids: -Stool softeners, MiraLAX, Dulcolax. -Gastroenterology consult. -Dr. Miles spoke to patient about possible colonoscopy. 13. Bilateral conjunctivitis: -started Ciprofloxacin antibiotic eyedrops as per formulary. 14. Obesity with BMI of 39.13: Dietary restrictions. Prophylaxis: Pepcid, Lovenox, Left lower extremity SCD Inpatient, billing code [id number], time spent 45 minutes.
--- NOTE | 2020-06-19 02:41 | NUR ---
Date of Service: 06/18/2020 PRIMARY CARE PHYSICIAN: The patient does not have a PCP. OUTPATIENT PHYSICIANS: 1. Outpatient collections specialist, Dr. Kearns. 2. Outpatient orthopedic, Dr. Peterson. 3. Immigration Consultant, Dr. Parker. Family contact: Bradley () [phone]. CONSULTING PHYSICIANS: 1. Saurabh Peterson M.D. with Orthopedics 2. Gerhard Kearns M.D. with Nephrology 3. Erlin Cameron M.D. with Wound Care 4. Vinod Rosenthal M.D. with Cardiology 5. Clyde Barrios M.D. with Pulmonology 6. Costa Miles M.D. with Gastroenterology 7. Mirian Peters M.D. with Psychiatry CHIEF COMPLAINT: Missed dialysis. REVIEW OF SYSTEMS: Bilateral eye infection. The patient states her shortness of breath has improved with dialysis. Reports that fluid has been in her lungs since November. States "someone told me that I have a tumor in my lungs". Increased stress lately, problems with her , having to go to the [facility] SNF, has had thoughts of suicide recently. Reports bed sore s on bilateral buttocks and sacrum areas. States she has had some chest pain in the center of her chest, which she attributes to stress. However, none right now. External hemorrhoids, reports she still feels constipated. Unable to ambulate since the ankle fracture occurred, along with pain with movement or any light touch. She states that she fell on 06/07/2020, which caused the right ankle to shatter. Her most recent fall was on 06/15/2020, when she fell out of bed at [facility], hitting her right leg on the b edside table. She has been taking [place] for the pain. She complains of having "hardening" in both lower legs. No BM today, +flatus, received zofran for nausea. PHYSICAL EXAMINATION: VITAL SIGNS: Temperature 98.1, pulse 74, 174/61, respirations 17, SpO2 97% on room air. Height 5 feet 4 inches. Weight 228 pounds. BMI 39.13. GENERAL: Supine in bed. No acute distress. LUNGS: Clear to auscultation. Respiratory pattern even and unlabored. No supplemental oxygen. HEENT: EOMI. NECK: Supple. No thyromegaly, lymphadenopathy, or JVD. CARDIOVASCULAR: Regular rate and rhythm without murmur. ABDOMEN: Bowel sounds positive. Soft, nontender. No obvious distention. No guarding. EXTREMITIES: With 1+ pitting edema. No clubbing or cyanosis. She has a large bulky dressing on the right ankle, is able to move her toes. Palpation of the left lower extremity reveals the aforementioned "hardened" area in the left calf . NEUROLOGICAL: GCS is 15, nonfocal. PSYCHIATRIC: Not tearful, but emotionally depressed. DIAGNOSTIC STUDIES LABORATORY DATA: Reviewed. 06/18: H/H 8.6/26.9 06/17: Lab Holiday 06/16: WBC 8.44, hemoglobin 9.0, hematocrit 29, platelets 281, neutrophils 71.7%. Na 137, K 5.5, Cl 98, CO2 27, BUN 48, Cr 7.69, eGFR 5, glucose 184 TkD2T=21.6%. No HLD per lipid profile. Cardiac Biomarkers were negative x 4 sets. 06/15: WBC 11.38, RBCs 3.09, hemoglobin 10, hematocrit 31.2, platelets 292, neutrophils 80.6%. PT 12.5, INR 0.89, PTT 28.1. Sodium 135, potassium 6.6, chloride 96, CO2 of 24, anion gap 21.6, BUN 81, creatinine 10.64, estimated GFR 4. BUN and creatinine ratio 8, glucose 250. Fingerstick blood glucose level 175, calcium 9.1, total bilirubin 0.6, AST 30, ALT 20, alkaline phosphatase 226. Creatine kinase 96, CK-MB 2.4, troponin I 0.066. Total protein 6.8, albumin 3.1. Repeat of cardiac biomarkers; creatine kinase 74, CK-MB 1.9, troponin I 0.063. Coronavirus PCR collected on 06/15/2020 is pending. Hepatitis Panel pending. IMAGING/OTHER: 06/18 CT Chest without contrast: 1. Moderate left pleural effusion. No evidence of loculations. Small effusion was noted on CT dated 12/11/2019. 2. Atelectasis of the left lower lobe is noted with air bronchograms. Superimposed infection/consolidation are difficult to exclude. 3. Incidentally noted punctate thyroid calcifications. 9/1 Bilateral LE Arterial Doppler US: (preliminary) NO Evidence of significant arterial stenosis 06/17 Echocardiogram: (final) Mild concentric left ventricular hypertrophy. The calculated left ventricular EF is 64%. Pseudonormal LV filling pattern, consistent with elevated LA pressure. The left atrium appears to be enlarged. 06/16 Right Ankle X-ray: 1. Limited evaluation of the osseous and soft tissue structures an AP view. 2. Mildly displaced lateral malleolar fracture. 3. Questionable medial and posterior malleolar fractures. 06/16 Bilateral Lower Extremity Venous Doppler US: Negative for DVT 06/15 12-lead EKG, normal sinus rhythm, heart rate 78. 06/15 Chest x-ray interpretation by radiologist; Re-demonstration of moderate left pleural effusion with left basilar opacity, which most likely represents superimposed atelectasis. No significant interval change when compared to most recent prior examination. Prominent interstitial lung markings throughout both lungs may represent pulmonary vascular. ASSESSMENT AND PLAN: 1. Fluid volume overload, missed hemodialysis: -Dialysis per Nephrology. 2. ESRD, needing hemodialysis on admission: -Dialysis per Nephrology; normally receives HD Wednesday, , Wednesday 3. Life-threatening hyperkalemia: -Admitting Potassium level 6.6; improving with HD. -Hemodialysis per Nephrology. Monitor potassium level. 4. Unstable Right ankle fracture, status post fall on 06/07/2020, ambulatory dysfunction, history of falls: -Orthopedics following, preparations for possible surgery; need Cardiology & Pulmonary Clearance -Pain control, morphine sulfate 2 mg IV q.3 hours p.r.n., Tylenol No. 3 q.4 hours p.r.n. for moderate pain. Tylenol q.6 hours p.r.n. for mild pain. -PT eval and treat, maintain fall precautions. -Cardiology consult for preoperative cardiac clearance, as well as evaluation of PVD. -Pulmonology consult for preoperative pulmonary clearance, as well as eval of left pleural effusion. 5. HTN with ESRD: -Hypotension on admission -Blood pressure 174/64. Resume home medications. Monitor blood pressure. 6. Uncontrolled T2DM with ESRD and Hyperglycemia: -VqU8U=05.6%. Renal diabetic diet. -Low-dose sliding scale insulin. Monitor FSBG. 7. Right Buttock Wound, likely Herpes genitalis: -Wound care MD and Wound Care team consult. -Keep on Valtrex 500 mg p.o. daily for one week and monitor. Apply Mepilex. 8. Moderate Left Pleural Effusion, Atelectasis, history of Asthma: -Pulmonology consult for preoperative pulmonary clearance, as well as eval of left pleural effusion. -HD per Nephrology. -Encourage incentive spirometry. -Monitor CXR/CT Chest results 9. History of bariatric surgery with Partial Gastrectomy (1/2 of stomach removed): -Vitamin B12, Folate, and Thiamine due to probable poor absorption. 10. Depression (likely Chronic & Acute/Situational), SI: -Resume antidepressant from home if applicable. -Security Sergeant visits with patient. -Psychiatry consult. -Monitor closely for any other verbalization regarding suicide. 11. Documented hx Hyperlipidemia. -Resume home antihyperlipidemic. -No HLD per lipid profile. 12. Severe Constipation, r/o ileus, +recent Fecal Impaction, +External Hemorrhoids: -Stool softeners, MiraLAX TID, Dulcolax. -Gastroenterology consult. -Dr. Miles spoke to patient about possible colonoscopy. -Anusol suppository for hemorrhoids 13. Bilateral conjunctivitis: -Ciprofloxacin antibiotic eyedrops as per formulary. 14. Obesity with BMI of 39.13: Dietary restrictions. Prophylaxis: Pepcid, Lovenox, Left lower extremity SCD Inpatient, billing code [id number], time spent 45 minutes.
[2020-06-19] MEDS: ACETAMINOPHEN/CODEINE 300MG - 30MG TAB PO PRN (02:52)
[2020-06-19] MEDS: TRAMADOL HCL 50 MG TAB PO PRN ×2 (06:22→20:20)
[2020-06-19] MEDS: POLYETHYLENE GLYCOL 3350 17 GM PACK PO SCH ×3 (06:22→20:33)
[2020-06-19] MEDS: LEVOTHYROXINE SODIUM 75 MCG TAB PO SCH (06:22)
[2020-06-19 06:40] LABS: ANION GAP 19.1 mmol/L (8-16); CALCIUM 8.7 mg/dL (8.4-10.2); CREATININE, SERUM 4.66 mg/dL (0.57-1.11); POTASSIUM 4.1 mmol/L (3.5-5.1)
--- NOTE | 2020-06-19 07:10 | NUR ---
bedside shift report received from PM nurse. pt in stable condition.
[2020-06-19] MEDS: INSULIN LISPRO 100 UNIT/1 ML 3ML VIAL SQ SCH ×4 (08:22→20:07)
[2020-06-19] MEDS: MORPHINE SULFATE 2 MG/ML SYR 1ML IV PRN (09:00)
[2020-06-19] MEDS ORDERED: CYANOCOBALAMIN INJ 1,000 MCG/ML VIAL IM SCH (09:00)
[2020-06-19] MEDS: HYDROCORTISONE ACETATE 25 MG/SUPP.RECT SUPP RC SCH ×2 (09:00→17:00)
[2020-06-19] MEDS: SEVELAMER CARBONATE 800 MG TAB PO SCH ×3 (09:08→18:10)
[2020-06-19] MEDS: CARVEDILOL 12.5 MG TAB PO SCH ×2 (09:08→17:00)
[2020-06-19] MEDS: FERROUS SULFATE 325 MG TAB PO SCH ×3 (09:09→20:32)
[2020-06-19] MEDS: DOCUSATE SODIUM 100 MG CAP PO SCH ×3 (09:09→20:32)
[2020-06-19] MEDS: FAMOTIDINE 20 MG/2 ML VIAL IV SCH ×2 (09:09→18:09)
[2020-06-19] MEDS: HYDRALAZINE HCL 25 MG TAB PO SCH ×3 (09:09→20:32)
[2020-06-19] MEDS: PREGABALIN 75 MG CAP PO SCH ×2 (09:10→18:10)
[2020-06-19] MEDS: AMLODIPINE BESYLATE 10 MG TAB PO SCH (09:10)
[2020-06-19] MEDS: SODIUM BICARBONATE 650 MG TAB PO SCH ×2 (09:10→18:10)
[2020-06-19] MEDS: TIZANIDINE HCL 4 MG TAB PO SCH ×3 (09:10→20:32)
[2020-06-19] MEDS: CIPROFLOXACIN (OPTH SOLN) 5 ML BTL OU SCH ×2 (09:16→18:09)
--- NOTE | 2020-06-19 11:26 | Progress Note ---
DATE: 06/19/2020 Renal Progress Note SUBJECTIVE: The patient is followed for end-stage renal disease. The patient is tolerating dialysis Wednesday, , Wednesday, and any additional treatment as needed for fluid overload. Currently, no nausea, no vomiting, no shortness of breath. OBJECTIVE: VITAL SIGNS: Have been stable and noted. LUNGS: Clear to auscultation bilaterally. CARDIOVASCULAR: S1 and S2. No rub. ABDOMEN: Soft and nontender. EXTREMITIES: No edema. LABORATORY DATA: Have been reviewed and are stable. IMPRESSION AND PLAN: 1. End-stage renal disease. We will continue dialysis per her schedule Wednesday, , and Wednesday. 2. Hypertension. Blood pressure is better controlled. 3. Anemia of chronic disease. Stable H and H. continue to monitor. Gerhard Kearns MD /MODL /[id number]
--- NOTE | 2020-06-19 12:01 | Progress Note ---
DATE: SUBJECTIVE: The patient is not complaining of dyspnea or cough. She went for CT scan of the chest that showed some free-flowing left pleural fluid. PHYSICAL EXAMINATION: VITAL SIGNS: The blood pressure is 181/60, pulse is 77, saturation is 99% HEENT: Shows no facial swelling or erythema. LYMPHATIC: Shows no submandibular, cervical or supraclavicular adenopathy. CARDIAC: Reveals regular rate and rhythm with normal S1 and S2. LUNGS: Auscultation of lungs shows decreased breath sounds at the left base. ABDOMEN: Soft and nontender. There is no rebound or guarding. EXTREMITIES: Shows no leg edema or calf tenderness. There is no cyanosis or clubbing. SKIN: Shows no rashes. NEUROLOGICAL: Shows no focal abnormalities. LABORATORY DATA: BUN to creatinine ratio is 19 to 4.66. The other electrolytes are within normal limits. Hemoglobin is 8.6 and white blood cell count is 8.8. The platelet count is 246. RADIOGRAPHIC DATA: CT scan shows a moderate left pleural effusion. There is some atelectasis in the left lower lobe. IMPRESSION: 1. Chronic left pleural effusion, probably related to renal failure and uremia. 2. End-stage renal disease. 3. Trimalleolar fracture of the ankle. 4. Diabetes. PLAN: 1. Arrange for ultrasound-guided thoracentesis today. 2. Continue dialysis as needed. 3. Rescue inhaler as needed. 4. Oxygen as needed. Clyde Barrios MD LM/LIZA /[id number]
--- NOTE | 2020-06-19 12:22 | NUR ---
pt left unit for thoracentesis procedure with transporter. consent signed. pt in stable condition.
--- NOTE | 2020-06-19 13:05 | Diagnostic Imaging Report ---
TECHNIQUE: Frontal view of the chest. INDICATION: ^S/P THORACENTESIS ^[id number] ^1240 COMPARISON: CT dated one day earlier. DISCUSSION: Limited evaluation due to portable technique. Lines and hardware: Overlying EKG leads are noted. Heart and mediastinum: Stable. Lungs and pleura: Interval decrease in the size of the left pleural effusion with small residual pleural effusion. Right lung is clear. Negative for large pneumothorax. Soft tissues and bones: No acute abnormality. IMPRESSION: Significant improvement in the left pleural effusion. Trace pleural effusion is noted. Negative for pneumothorax. Signed by: Devan Casillas MD on 06/19/2020 1:02 PM
--- NOTE | 2020-06-19 13:12 | Diagnostic Imaging Report ---
Ultrasound guided left thoracentesis. Clinical History: Left pleural effusion. Modality: Ultrasound. Sedation: None. Director Check: Devan Casillas M.D. Rosin Barrel Filler: None. Estimated Blood Loss: 1cc Specimen: 1100 cc of gerson-yellow fluid. Technique: Informed consent was obtained. The risks of pain, bleeding, infection, lung collapse/pneumothorax, injury to adjacent structures, and adverse medication reactions were discussed with the patient. The patient's left hemithorax was scanned from the back, with the patient in a sitting position. After the largest fluid pocket area was marked, the skin was prepped and draped in the usual sterile manner. The area was anesthetized with 1% lidocaine, a 5 F one-step catheter was advanced into the pleural space under ultrasound guidance. After completion of drainage, the catheter was removed. There was no evidence of immediate complication. Post procedure chest x-ray is negative for pneumothorax. Patient disposition: Patient was discharged from the ultrasound department after the thoracentesis in good condition. Impression: Successful and uncomplicated ultrasound guided left thoracentesis. Signed by: Devan Casillas MD on 06/19/2020 1:08 PM
--- NOTE | 2020-06-19 13:25 | NUR ---
Assembler Garment Form follow up visit. Pt states she is "tired" following procedure and "couldn't sleep much last night." Assembler Garment Form visited briefly and prayed. Will continue to follow as able. ETHAN THOMAS Assembler [employer]ment Form Spiritual Care Department O: [phone]
[2020-06-19] MEDS: FOLIC ACID MDV 1 MG in SODIUM CHLORIDE 0.9% 50ML 50 ML IV SCH (13:50)
--- NOTE | 2020-06-19 14:31 | NUR ---
ORDER RECEIVED FOR [facility] / LTACH REQUEST PER THE PT. CALL TO THE PT. PT STATES SHE WENT TO [facility] IN THE PAST WHEN HER DIALYSIS WAS STARTED W A CENTRAL LINE INFECTION. DISCUSSED LTACH CRITERIA VS REHAB. PT VERBALIZED UNDERSTANDING AND WOULD STILL LIKE FOR HER CLINICALS TO BE SENT TO [facility] FOR CONSIDERATION. PT STATES SHE IS SUPPOSED TO HAVE HER ANKLE REPAIRED, BUT STATES SHE HAS NOT BEEN STABLE ENOUGH FOR SURGERY. STATES SHE JUST HAD FLUID REMOVED FROM HER LUNG TODAY. CM WILL FAX REFERRAL TO [facility] @ OFF: [phone] / FAX: [phone]. CALL TO SILVER GOMEZ AND LEFT MESSAGE. SHE CALLED BACK AND REQUESTED THE CLINICAL. MOT WAS INITIATED.
[2020-06-19 14:59] LABS: BODY FLUID APPEARANCE CLOUDY; BODY FLUID COLOR YELLOW; BODY FLUID TYPE PLEURAL
[2020-06-19] MEDS: THIAMINE HCL INJ 100 MG in SODIUM CHLORIDE 0.9% 50ML 50 ML IV SCH (14:59)
[2020-06-19 15:01] LABS: RBC,BODY FLUID 1014 cells/uL; WBC,BODY FLUID 689 cells/uL
[2020-06-19 15:38] LABS: EOSINOPHILS,BODY FLUID 16 %; LYMPHOCYTES,BODY FLUID 61 %; NEUTROPHILS,BODY FLUID 17 %; OTHER CELLS,BODY FLUID 6 %
--- NOTE | 2020-06-19 20:25 | NUR ---
Right ankle pain voiced 8/10.pt is screaming and crying.because of blood pressure dropped after morphine administeration in the morning shift tramadol 50 mg po given.pt refused to take miralex .assessment done.no resp.distress.bed locked and in lowest position.call light within each.keep monitor the pt.
[2020-06-19] MEDS: TEMAZEPAM 7.5 MG CAP PO PRN (20:36)
[2020-06-20] VITALS (9 sets, daily range): BP systolic 96–167; BP diastolic 50–68
--- NOTE | 2020-06-20 00:10 | NUR ---
Call light was on .right ankle pain voiced 05/27.asking for pain medicine morphine.because of bp is 117/50 mmof hg offered tylenol#3 po for pain.but pt refused to take tylenol#3.pt stated that "tylenol #3 is not going to help me ".as a nurse tramadol cannot administer now ,because that is before the time reach.pt is shouting at me.call placed to leisure studies professor of DR.killum prince miller and addressed this matter to him.leisure studies professor told me that "do not administer morphine now,give tylenol#3".notified to hand cigar making supervisor and charge nurse.charge nurse is in the room and talked to the pt.
[2020-06-20] MEDS ORDERED: BISACODYL 5 MG TAB EC PO ONE ×2 (01:00→01:40)
--- NOTE | 2020-06-20 01:19 | NUR ---
Report given to Amelia Colon.pt is in stable condition.
--- NOTE | 2020-06-20 01:25 | NUR ---
RECEIVED REPORT FROM RAMESH. PATIENT IN BED. CALL LIGHT WITHIN REACH.
--- NOTE | 2020-06-20 02:23 | NUR ---
Date of Service: 06/19/2020 PRIMARY CARE PHYSICIAN: The patient does not have a PCP. OUTPATIENT PHYSICIANS: 1. Outpatient executive administrator, Dr. Kearns. 2. Outpatient orthopedic, Dr. Peterson. 3. Prepress Stripper, Dr. Parker. Family contact: Bradley () [phone]. CONSULTING PHYSICIANS: 1. Saurabh Peterson M.D. with Orthopedics 2. Gerhard Kearns M.D. with Nephrology 3. Erlin Cameron M.D. with Wound Care 4. Vinod Rosenthal M.D. with Cardiology 5. Clyde Barrios M.D. with Pulmonology 6. Costa Miles M.D. with Gastroenterology 7. Mirian Peters M.D. with Psychiatry CHIEF COMPLAINT: Missed dialysis. REVIEW OF SYSTEMS: Bilateral eye infection. The patient states her shortness of breath has improved with dialysis. Reports that fluid has been in her lungs since November. States "someone told me that I have a tumor in my lungs". Increased stress lately, problems with her , having to go to the [facility], has had thoughts of suicide recently. Reports bed sore s on bilateral buttocks and sacrum areas. States she has had some chest pain in the center of her chest, which she attributes to stress. However, none right now. External hemorrhoids, reports she still feels constipated. Unable to ambulate since the ankle fracture occurred, along with pain with movement or any light touch. She states that she fell on 06/07/2020, which caused the right ankle to shatter. Her most recent fall was on 06/15/2020, when she fell out of bed at [facility], hitting her right leg on the bedside table. She has been taking [place] for the pain. She complains of having "hardening" in both lower legs. No BM today, +flatus. Produced dribble of urine today, "first time in 8 years", with some dysuria. +Shooting pains right knee to ankle; "severe, excruciating". Slept a long time earlier today. Breathing easier post thoracentesis! PHYSICAL EXAMINATION: VITAL SIGNS: Temperature 98.4, pulse 80, 132/55, respirations 20, SpO2 98% on room air. Height 5 feet 4 inches. Weight 228 pounds. BMI 39.13. GENERAL: Supine in bed. No acute distress. LUNGS: Clear to auscultation. Respiratory pattern even and unlabored. No supplemental oxygen. HEENT: EOMI. NECK: Supple. No thyromegaly, lymphadenopathy, or JVD. CARDIOVASCULAR: Regular rate and rhythm without murmur. ABDOMEN: Bowel sounds positive. Soft, nontender. No obvious distention. No guarding. EXTREMITIES: No edema, clubbing or cyanosis. She has a large bulky dressing on the right ankle, is able to move her toes. Palpation of the left lower extre mity reveals the aforementioned "hardened" area in the left calf. NEUROLOGICAL: GCS is 15, nonfocal. PSYCHIATRIC: Not tearful, but emotionally depressed. DIAGNOSTIC STUDIES LABORATORY DATA: Reviewed. 06/19: Potassium 4.1, BUN 19, Cr 4.66. WBC 8.81, h/h 8.6/26.9 06/18: H/H 8.6/26.9 06/17: Lab Holiday 06/16: WBC 8.44, hemoglobin 9.0, hematocrit 29, platelets 281, neutrophils 71.7%. Na 137, K 5.5, Cl 98, CO2 27, BUN 48, Cr 7.69, eGFR 5, glucose 184 QiR0O=05.6%. No HLD per lipid profile. Cardiac Biomarkers were negative x 4 sets. 06/15: WBC 11.38, RBCs 3.09, hemoglobin 10, hematocrit 31.2, platelets 292, neutrophils 80.6%. PT 12.5, INR 0.89, PTT 28.1. Sodium 135, potassium 6.6, chloride 96, CO2 of 24, anion gap 21.6, BUN 81, creatinine 10.64, estimated GFR 4. BUN and creatinine ratio 8, glucose 250. Fingerstick blood glucose level 175, calcium 9.1, total bilirubin 0.6, AST 30, ALT 20, alkaline phosphatase 226. Creatine kinase 96, CK-MB 2.4, troponin I 0.066. Total protein 6.8, albumin 3.1. Repeat of cardiac biomarkers; creatine kinase 74, CK-MB 1.9, troponin I 0.063. Coronavirus PCR collected on 06/15/2020 is pending. Hepatitis Panel pending. IMAGING/OTHER: 06/19 Post-thoracentesis CXR: Significant improvement in the left pleural effusion. Trace pleural effusion is noted. Negative for pneumothorax. 06/18 CT Chest without contrast: 1. Moderate left pleural effusion. No evidence of loculations. Small effusion was noted on CT dated 12/11/2019. 2. Atelectasis of the left lower lobe is noted with air bronchograms. Superimposed infection/consolidation are difficult to exclude. 3. Incidentally noted punctate thyroid calcifications. 06/18 Bilateral LE Arterial Doppler US: (preliminary) NO Evidence of significant arterial stenosis 06/17 Echocardiogram: (final) Mild concentric left ventricular hypertrophy. The calculated left ventricular EF is 64%. Pseudonormal LV filling pattern, consistent with elevated LA pressure. The left atrium appears to be enlarged. 06/16 Right Ankle X-ray: 1. Limited evaluation of the osseous and soft tissue structures an AP view. 2. Mildly displaced lateral malleolar fracture. 3. Questionable medial and posterior malleolar fractures. 06/16 Bilateral Lower Extremity Venous Doppler US: Negative for DVT 06/15 12-lead EKG, normal sinus rhythm, heart rate 78. 06/15 Chest x-ray interpretation by radiologist; Re-demonstration of moderate left pleural effusion with left basilar opacity, which most likely represents superimposed atelectasis. No significant interval change when compared to most recent prior examination. Prominent interstitial lung markings throughout both lungs may represent pulmonary vascular. ASSESSMENT AND PLAN: 1. Fluid volume overload, missed hemodialysis: -Dialysis per Nephrology. 2. ESRD, needing hemodialysis on admission: -Dialysis per Nephrology; normally receives HD Wednesday, , Wednesday -c/o Dysuria 06/19; straight cath for UA C/S sample, r/o UTI -Next planned HD is tomorrow, 06/20 3. Life-threatening hyperkalemia: -Admitting Potassium level 6.6; improving with HD. -Hemodialysis per Nephrology. Monitor potassium level. 4. Unstable Right ankle fracture, status post fall on 06/07/2020, ambulatory dysfunction, history of falls: -Orthopedics following, preparations for possible surgery; need Cardiology & Pulmonary Clearance -Pain control, morphine sulfate 2 mg IV q.3 hours p.r.n., Tylenol No. 3 q.4 hours p.r.n. for moderate pain. Tylenol q.6 hours p.r.n. for mild pain. -PT eval and treat, maintain fall precautions. -Cardiology consult for preoperative cardiac clearance, as well as evaluation of PVD. -Pulmonology consult for preoperative pulmonary clearance, as well as eval of left pleural effusion. 5. HTN with ESRD: -Hypotension on admission -Blood pressure 132/55. Resume home medications. Monitor blood pressure. 6. Uncontrolled T2DM with ESRD and Hyperglycemia: -ZoX1V=82.6%. Renal diabetic diet. -Low-dose sliding scale insulin. Monitor FSBG. 7. Right Buttock Wound, likely Herpes genitalis: -Wound care MD and Wound Care team consult. -Keep on Valtrex 500 mg p.o. daily for one week and monitor. Apply Mepilex. 8. Moderate Left Pleural Effusion, now s/p Left USG Thoracentesis on 06/19/2020; Atelectasis, history of Asthma: -Pulmonology consult for preoperative pulmonary clearance, as well as eval of left pleural effusion. -Left USG Thoracentesis on 06/19/2020 by IR with 1100cc removed; LDH/Protein/Cell Count/Triglyceride of body fluid pending -HD per Nephrology. -Encourage incentive spirometry. -Monitor CXR/CT Chest results 9. History of bariatric surgery with Partial Gastrectomy (1/2 of stomach removed): -Vitamin B12, Folate, and Thiamine due to probable poor absorption. 10. Depression (likely Chronic & Acute/Situational), SI: -Resume antidepressant from home if applicable. -Pull [place] visits with patient. -Psychiatry consult. -Monitor closely for any other verbalization regarding suicide. 11. Documented hx Hyperlipidemia. -Resume home antihyperlipidemic. -No HLD per lipid profile. 12. Severe Constipation, r/o ileus, +recent Fecal Impaction, +External Hemorrhoids: -06/19 +BM -Stool softeners, MiraLAX TID, Dulcolax. -Gastroenterology consult. -Dr. Miles spoke to patient about possible colonoscopy. -Anusol suppository for hemorrhoids 13. Bilateral conjunctivitis: -Ciprofloxacin antibiotic eyedrops as per formulary. 14. Obesity with BMI of 39.13: Dietary restrictions. Prophylaxis: Pepcid, Lovenox, Left lower extremity SCD Discharge Planning: JAMAR Mai spoke to patient regarding her request for planned disposition to be [facility]. Hopefully Orthopedic Surgery this Thursday 06/21, but very specific conditions must exist for the surgery to occur. For example, if the potassium is elevated on the planned surgical date, it is likely that Anesthesia will not be in favor of proceeding with the surgery that day. Surgery cannot occur on a dialysis day. Dr. Peterson will need an OR room available for the required duration of the surgery and of course the Cardiac Clearance as well as the Pulmonary Clearance must both be completed beforehand. Inpatient, billing code [id number], time spent 45 minutes.
[2020-06-20 02:49] LABS: BILIRUBIN,URINE SMALL (NEGATIVE); CLARITY,URINE TURBID (CLEAR); COLOR,URINE AMBER (YELLOW); KETONES,URINE NEGATIVE (NEGATIVE); LEUKOCYTE ESTERASE ,URINE LARGE (NEGATIVE); NITRITE,URINE POSITIVE (NEGATIVE); PROTEIN,URINE DIPSTICK >=300 (NEGATIVE); URINE UROBILINOGEN 0.2 mg/dL (0.2 - 1)
[2020-06-20 02:55] LABS: BACTERIA,URINE MODERATE /HPF; EPITHELIAL CELLS,URINE FEW /LPF; RBC,URINE 21-50 /HPF (0-5); WBC,URINE (MAN) >50 /HPF (0-5)
[2020-06-20] MEDS: POLYETHYLENE GLYCOL 3350 17 GM PACK PO SCH ×3 (05:41→22:00)
[2020-06-20] MEDS: LEVOTHYROXINE SODIUM 75 MCG TAB PO SCH (05:41)
--- NOTE | 2020-06-20 07:05 | NUR ---
SBAR BEDSIDE REPORT GIVEN BY PATSY ESTRADA, PM SHIFT. PT FOUND RESTING IN BED, EASILY AROUSED IN NO ACUTE DISTRESS. PATIENT IS ABLE TO MAKE NEEDS KNOWN AND DENIES ANY NEEDS AT THIS TIME. PT WAS EDUCATED ON FALL RISK PRECAUTIONS AND VERBALIZED UNDERSTANDING. CALL LIGHT AND BELONGINGS PLACED NEARBY. WILL CONTINUE TO MONITOR.
[2020-06-20 07:22] LABS: BASOPHILS # (AUTO) 0.1 (0.0-0.1); BASOPHILS % 0.8 % (0.0-1.0); EOSINOPHILS # (AUTO) 0.6 (0.0-0.4); EOSINOPHILS % 5.8 % (0.0-6.0); HEMATOCRIT 32.4 % (34.2-44.1); HEMOGLOBIN 10.6 g/dL (12.0-16.0); LYMPHOCYTES # (AUTO) 1.1 (1.0-3.2); LYMPHOCYTES % 11.8 % (18.0-39.1); MEAN CORPUSCULAR HEMOGLOBIN 33.8 pg (28-32); MEAN CORPUSCULAR HGB CONC 32.7 g/dL (31-35); MEAN CORPUSCULAR VOLUME 103.2 fL (81-99); MONOCYTES # (AUTO) 0.7 (0.2-0.8); MONOCYTES % 7.5 % (4.4-11.3); NEUTROPHILS % 73.6 % (38.7-80.0); PLATELET COUNT 238 x10e3/uL (140-360); RED BLOOD COUNT 3.14 x10e6/uL (3.6-5.1); RED CELL DISTRIBUTION WIDTH 12.8 % (11.7-14.4)
--- NOTE | 2020-06-20 07:34 | NUR ---
GAVE BEDSIDE SHIFT REPORT TO ONCOMING NURSE. CALL LIGHT WITHIN REACH. PATIENT IN BED. PATIENT IN NO PAIN. HOURLY ROUNDING PERFORMED
[2020-06-20 08:06] LABS: ALBUMIN 3.6 g/dL (3.5-5.0); ALBUMIN/GLOBULIN RATIO 1.2 (0.8-2.0); ANION GAP 19.6 mmol/L (8-16); CALCIUM 8.9 mg/dL (8.4-10.2); CREATININE, SERUM 6.45 mg/dL (0.57-1.11); MAGNESIUM 2.8 MG/DL (1.3-2.1); PHOSPHORUS 5.9 MG/DL (2.3-4.7); POTASSIUM 4.6 mmol/L (3.5-5.1)
[2020-06-20] MEDS: INSULIN LISPRO 100 UNIT/1 ML 3ML VIAL SQ SCH ×4 (08:31→22:07)
[2020-06-20] MEDS: CIPROFLOXACIN (OPTH SOLN) 5 ML BTL OU SCH ×2 (08:32→19:13)
[2020-06-20] MEDS: SEVELAMER CARBONATE 800 MG TAB PO SCH ×3 (08:32→17:00)
[2020-06-20] MEDS: CARVEDILOL 12.5 MG TAB PO SCH ×2 (08:32→17:00)
[2020-06-20] MEDS: THIAMINE HCL INJ 100 MG in SODIUM CHLORIDE 0.9% 50ML 50 ML IV SCH (08:32)
[2020-06-20] MEDS: FOLIC ACID MDV 1 MG in SODIUM CHLORIDE 0.9% 50ML 50 ML IV SCH (08:32)
[2020-06-20] MEDS: FAMOTIDINE 20 MG/2 ML VIAL IV SCH ×2 (08:32→17:00)
[2020-06-20] MEDS: SODIUM BICARBONATE 650 MG TAB PO SCH ×2 (08:33→17:00)
[2020-06-20] MEDS: FERROUS SULFATE 325 MG TAB PO SCH ×3 (08:33→22:06)
[2020-06-20] MEDS: DOCUSATE SODIUM 100 MG CAP PO SCH ×3 (08:33→21:00)
[2020-06-20] MEDS: PREGABALIN 75 MG CAP PO SCH ×2 (08:33→17:00)
[2020-06-20] MEDS: HYDROCORTISONE ACETATE 25 MG/SUPP.RECT SUPP RC SCH ×2 (08:33→17:00)
[2020-06-20] MEDS: AMLODIPINE BESYLATE 10 MG TAB PO SCH (08:33)
[2020-06-20] MEDS: TIZANIDINE HCL 4 MG TAB PO SCH ×3 (08:33→22:06)
[2020-06-20] MEDS: HYDRALAZINE HCL 25 MG TAB PO SCH ×3 (08:33→22:06)
[2020-06-20] MEDS ORDERED: SODIUM CHLORIDE 0.9% 1000ML 2,000 ML ONE (09:22)
[2020-06-20] MEDS: SERTRALINE HCL 50 MG TAB PO SCH (09:54)
[2020-06-20] MEDS: ACETAMINOPHEN 325 MG TAB PO PRN (10:01)
--- NOTE | 2020-06-20 10:43 | NUR ---
CALL PLACED TO DR. MARX AND MADE YULIET PAGAN AWARE OF ABNORMAL URINALYSIS RESULTS. LATASHA WILL ROUND SHORTLY
--- NOTE | 2020-06-20 11:02 | Consultation ---
DATE OF CONSULTATION: 06/19/2020 Psychiatric Consultation REASON FOR CONSULTATION: To evaluate patient depression. HISTORY OF PRESENT ILLNESS: The patient is a 54-year-old female, admitted to the hospital for TIA, psychiatric consultation is called to evaluate the patient's mood. As per medical record, the patient has history of end-stage renal disease on dialysis past seven years. On a waiting list for kidney, has history of hypertension, diabetes, asthma, hyperlipidemia, and currently has right ankle fracture and on a cast. Upon evaluation today, the patient is found to be in the room. She is alert, awake, and oriented to situation. She is calm and cooperative. The patient states she has been feeling very anxious and depressed lightly due to marital and financial issues. She denies any suicidal or homicidal ideation. She claims she is feeling helpless. She denies any hallucination. She reports not sleeping and eating much. The patient admits that during the assessment with the Medico, GLASS SANDER, she reported to him that in the past she has been feeling depressed and even thought of having suicidal ideation, but claims that she has not been suicidal ideation recently, just depressed. PAST PSYCHIATRIC HISTORY: The patient reports history of depression. She attempted suicide once in the past. Denies alcohol and drug use. FAMILY HISTORY: Unknown since she is adopted. SOCIAL HISTORY: The patient lives with . MENTAL STATUS EXAM: The patient is middle-aged female. She is alert, awake, and oriented to situation. Mood is depressed and anxious. Affect is blunt. Psychomotor state is passive. Denies any suicidal or homicidal ideation. Denies any hallucination. Thought process is concrete. No delusion elicited. Insight and judgment are fair. Memory appears to be grossly intact. CURRENT MEDICATIONS: 1. MiraLAX. 2. Synthroid. 3. Temazepam 15 mg p.o. at bedtime p.r.n. 4. Ferrous sulfate. 5. Docusate sodium. 6. Hydralazine. 7. Zanaflex. 8. Ultram. 9. Sevelamer. 10. Sodium bicarbonate. 11. Pregabalin. 12. Cipro. 13. Famotidine. 14. Thiamine. 15. Folic acid. 16. Amlodipine. 17. Morphine. 18. Tylenol #3. 19. Ondansetron. 20. Zofran. 21. Tylenol p.r.n. 22. Hydrocortisone. 23. Carvedilol. 24. Insulin. 25. Neurontin 5 mg p.o. 3 times a day as needed. 26. Valtrex. 27. Heparin. 28. Hydralazine. 29. Dextrose. CURRENT LABORATORY DATA: WBC 9.52, RBC 3.14, hemoglobin 10.6, hematocrit 32.4, and platelets 238. Sodium 135, potassium 4.6, chloride 98, CO2 22, BUN 29, creatinine 6.45. AST 18, ALT 12. ASSESSMENT: Major depressive disorder, recurrent, moderate. PLAN: 1. Add Zoloft 50 mg p.o. daily as patient had this in the past and worked for her. 2. Continue with temazepam 15 mg p.o. at bedtime p.r.n. 3. Monitor for mood. 4. Supportive therapy. Note: The patient is on dialysis past due to leg fractures. Discharge plan is for her to go to a long-term care from [facility]. Thank you for this consultation. Dictated by Zayda Wilson PA-C Mirian Peters MD QTV/MODL /[id number]
--- NOTE | 2020-06-20 11:27 | Progress Note ---
DATE: 06/20/2020 Renal Progress Note SUBJECTIVE: Followed for end-stage renal disease, tolerating dialysis Wednesday, , and Wednesday, seen on dialysis treatment, tolerating without any problems. No nausea, no vomiting, no shortness of breath. OBJECTIVE: VITAL SIGNS: Have been noted and stable. Blood pressure 167/60, 81 pulse, afebrile. LUNGS: Clear to auscultation bilaterally. CARDIOVASCULAR: S1, S2. No rub, gallop, or murmur. ABDOMEN: Soft. Positive bowel sounds. Nontender. No organomegaly. EXTREMITIES: No evidence of lower extremity edema. No clubbing. No cyanosis. LABORATORY DATA: H and H are 10.6 and 32.4. Sodium 135, potassium 4.6, BUN 29, and creatinine 6.45. IMPRESSION AND PLAN: 1. End-stage renal disease. Continue to provide dialysis Wednesday, , and Wednesday. 2. Hypertension, stable. 3. Anemia of chronic disease, stable. 4. Hyperphosphatemia. Continue phosphorus binders. Phosphorus is improving now. Gerhard Kearns MD /MODL /[id number]
[2020-06-20] MEDS ORDERED: CEFTRIAXONE SOD 1 GM/NS 50 ML 50 ML IV SCH (12:30)
[2020-06-20] MEDS ORDERED: HEPARIN SOD (PORCINE) 1000 UNIT/ML SDV IV SCH (13:45)
[2020-06-20] MEDS ORDERED: AZTREONAM 1 GM/NS 50 ML 50 ML IV ONE (15:00)
--- NOTE | 2020-06-20 16:00 | NUR ---
Nutrition Intervention Note RD Recommendation(s) for Physician: - Continue renal/diabetic diet - Continue Nepro BID for adequacy Plan of Care: RD following, monitoring for tolerance and adequacy, oral supplement recommendation Nutrition reason for involvement: follow up RD Assessment: 06/20: Follow up and RD received consult for renal diet education. Chart reviewed. Pt reports her meal intake is varied and pt is ordered Nepro BID. RD provided pt with renal diet education materials and all questions were answered. Obtain pts meal preferences. Will continue to monitor. 06/18: 54 YOF admitted for missed HD tx admitted for dialysis needs and hyperkalemia. Pt seen today for ESRD dx on admit. Noted poor intake, currently 25-50% of meals. Pt reports poor intake per food preferences and diet restrictions. Pt food preferences obtain and pt receptive to Nepro, requests to only receive BID- RD to order. Pt denies GI distress today, several BMs yesterday noted. Pt reports UBW of 94kg dry weight, no wt loss noted. All questions and concerns addressed at time of visit. Chart reviewed. Will continue to monitor. Principal Problems/Diagnoses: ESRD, hyperkalemia, volume overload PMH: ESRD on HD, HTN, DM, HLD, orthostatic hypotension, bariatric surgery GI: soft, nontender abdomen Skin: bilateral gluteal redness Labs: 06/20: Na 135, K 4.6, BUN 29, Cr 6.45, Glu 122, Phos 5.9, mg 2.8 06/18: Na 136, K 4.4, BUN 42, Cr 7.33, Gluc 126, Phos 6.6, Mg 3.3, POC Gluc 81-145 Meds: insulin, ferrous sulfate, colace, renvela, thiamine, cipro, folic acid, pepcid, miralax, levothyroxine, morphine, zofran, miralax, antibiotic Ht: 64 in Wt: 177 lbs (06/20) 224.06 lb (06/18) - Suspect possible weight error or fluid changes BMI: 30.4 kg/m2 IBW: 120 lb Malnutrition Evaluation (06/18/20) The patient does not meet criteria for a specified degree of malnutrition at this time. Will re-evaluate at follow-up as appropriate. Energy intake: moderate <75% of estimated energy requirements for >7 days Weight loss: no reported wt loss, UBW 94 kg Fat loss: none, ample skinfold thickness to arm, bulging eye pads Muscle loss: none, shoulder round Supporting Evidence: Fluid accumulation: none, fluid shifts related to HD Functional Status: not assessed Nutrition Prescription (Diet Order):1800 ADA, Renal Estimated Nutritional Needs: 4967-8155 calories/day (22-25 kcal/kg IBW) 82-109 g protein/day (1.5-2 g pro/kg IBW) Diet Adequacy: Not meeting calorie needs, Not meeting protein needs Diet Tolerance: tolerating po Diet Education Needs Assessment: RD consulted for renal diet education. RD provided pt with renal diet education materials. Pt was mainly concerned about foods with potassium which RD explained. All questions about the diet were answered and RD provided pt with dietitian office number if she has further questions. Nutrition Care Level: Moderate Nutrition Diagnosis: Inadequate energy and protein intake related to current medical condition as evidenced by not meeting needs. Goal: Patient will meet 75-100% of estimated needs by follow up Progress: progressing Interventions: -Carbohydrate and Mineral modified diet, Commercial beverage, Collaboration with other providers, education Monitoring/Evaluation: -Total energy intake, Total protein intake, Modified diet, Liquid supplement, Weight change Signed: Tricia Cardona, RD, LD
--- NOTE | 2020-06-20 18:45 | NUR ---
RECEIVED BEDSIDE SHIFT REPORT FROM PREVIOUS NURSE. CALL LIGHT WITHIN REACH. PATIENT IN BED. PATIENT IN NO PAIN OR DISTRESS
[2020-06-20] MEDS: AZTREONAM (AZACTAM) 0.5 GM in SODIUM CHLORIDE 0.9% 50ML 50 ML IV SCH (22:07)
[2020-06-20] MEDS: TRAMADOL HCL 50 MG TAB PO PRN (22:45)
[2020-06-20] MEDS: TEMAZEPAM 7.5 MG CAP PO PRN (23:14)
[2020-06-21] VITALS (8 sets, daily range): BP systolic 94–173; BP diastolic 46–70
--- NOTE | 2020-06-21 02:27 | Progress Note ---
DATE: 06/20/2020 Cardiology Progress Note SUBJECTIVE: No major events overnight. OBJECTIVE: VITAL SIGNS: Temperature afebrile, pulse 72, respiratory rate 20, blood pressure 144/54, saturating 100% on room air. GENERAL: Middle-aged female, chronically ill-appearing, no acute distress. CARDIOVASCULAR: Regular rate and rhythm. No murmurs, rubs, or gallops. LUNGS: Clear to auscultation anteriorly. ABDOMEN: Soft and nontender. INPATIENT MEDICATIONS: Reviewed. LABORATORY DATA: Reviewed. TELEMETRY DATA: Reviewed, shows normal sinus rhythm. ASSESSMENT: 1. Preoperative risk assessment for possible orthopedic surgery. 2. End-stage renal disease. 3. Hypertension. 4. Hyperlipidemia. 5. Diabetes. 6. Abnormal EKG. PLAN: Echocardiogram reviewed, shows normal LV function. No severe valvular abnormalities. Based on these findings, the patient is okay to proceed with any orthopedic surgery should be low risk for perioperative cardiovascular event. No further cardiovascular workup is needed. We will continue to monitor closely in the perioperative period. Continue current medications, otherwise we will titrate antihypertensives as needed. MD ANKUR Cade/MODL /[id number]
--- NOTE | 2020-06-21 04:13 | NUR ---
Date of Service: 06/20/2020 PRIMARY CARE PHYSICIAN: The patient does not have a PCP. OUTPATIENT PHYSICIANS: 1. Outpatient polo coach, Dr. Kearns. 2. Outpatient orthopedic, Dr. Peterson. 3. Distillery Manager, Dr. Parker. Family contact: Bradley () [phone]. CONSULTING PHYSICIANS: 1. Saurabh Peterson M.D. with Orthopedics 2. Gerhard Kearns M.D. with Nephrology 3. Erlin Cameron M.D. with Wound Care 4. Vinod Rosenthal M.D. with Cardiology 5. Clyde Barrios M.D. with Pulmonology 6. Costa Miles M.D. with Gastroenterology 7. Mirian Peters M.D. with Psychiatry CHIEF COMPLAINT: Missed dialysis. REVIEW OF SYSTEMS: Bilateral eye infection. The patient states her shortness of breath has improved with dialysis. Reports that fluid has been in her lungs since November. States "someone told me that I have a tumor in my lungs". Increased stress lately, problems with her , having to go to the [facility], has had thoughts of suicide recently. Reports bed sore s on bilateral buttocks and sacrum areas. States she has had some chest pain in the center of her chest, which she attributes to stress. However, none right now. External hemorrhoids, reports she still feels constipated. Unable to ambulate since the ankle fracture occurred, along with pain with movement or any light touch. She states that she fell on 06/07/2020, which caused the right ankle to shatter. Her most recent fall was on 06/15/2020, when she fell out of bed at [facility], hitting her right leg on the bedside table. She has been taking [place] for the pain. She complains of having "hardening" in both lower legs. No BM today, +flatus. Produced dribble of urine today, "first time in 8 years", with some dysuria. +Shooting pains right knee to ankle; "severe, excruciating". Breathing easier post thoracentesis! PHYSICAL EXAMINATION: VITAL SIGNS: Temperature 99.7, pulse 81, 167/60, respirations 20, SpO2 96% on room air. Height 5 feet 4 inches. Weight 228 pounds. BMI 39.13. GENERAL: Supine in bed. No acute distress. LUNGS: Clear to auscultation. Respiratory pattern even and unlabored. No supplemental oxygen. HEENT: EOMI. NECK: Supple. No thyromegaly, lymphadenopathy, or JVD. CARDIOVASCULAR: Regular rate and rhythm without murmur. ABDOMEN: Bowel sounds positive. Soft, nontender. No obvious distention. No guarding. EXTREMITIES: No edema, clubbing or cyanosis. She has a large bulky dressing on the right ankle, is able to move her toes. Palpation of the left lower extre mity reveals the aforementioned "hardened" area in the left calf. NEUROLOGICAL: GCS is 15, nonfocal. PSYCHIATRIC: Not tearful, but emotionally depressed. DIAGNOSTIC STUDIES LABORATORY DATA: Reviewed. 06/20 UA: Large Leuocyte Esterase, Positive Nitrites, Protein > 300, Large Blood, WBC > 50, RBC 21-50, Moderate Bacteria, Few Epithelial Cells 06/20: Na 135, K 4.6, WBC 9.52, h/h 10.6/32.4 06/19: Potassium 4.1, BUN 19, Cr 4.66. WBC 8.81, h/h 8.6/26.9 06/18: H/H 8.6/26.9 06/17: Lab Holiday 06/16: WBC 8.44, hemoglobin 9.0, hematocrit 29, platelets 281, neutrophils 71.7%. Na 137, K 5.5, Cl 98, CO2 27, BUN 48, Cr 7.69, eGFR 5, glucose 184 WyU0V=01.6%. No HLD per lipid profile. Cardiac Biomarkers were negative x 4 sets. 06/15: WBC 11.38, RBCs 3.09, hemoglobin 10, hematocrit 31.2, platelets 292, neutrophils 80.6%. PT 12.5, INR 0.89, PTT 28.1. Sodium 135, potassium 6.6, chloride 96, CO2 of 24, anion gap 21.6, BUN 81, creatinine 10.64, estimated GFR 4. BUN and creatinine ratio 8, glucose 250. Fingerstick blood glucose level 175, calcium 9.1, total bilirubin 0.6, AST 30, ALT 20, alkaline phosphatase 226. Creatine kinase 96, CK-MB 2.4, troponin I 0.066. Total protein 6.8, albumin 3.1. Repeat of cardiac biomarkers; creatine kinase 74, CK-MB 1.9, troponin I 0.063. Coronavirus PCR collected on 06/15/2020 is pending. Hepatitis Panel pending. IMAGING/OTHER: 06/19 Post-thoracentesis CXR: Significant improvement in the left pleural effusion. Trace pleural effusion is noted. Negative for pneumothorax. 06/18 CT Chest without contrast: 1. Moderate left pleural effusion. No evidence of loculations. Small effusion was noted on CT dated 12/11/2019. 2. Atelectasis of the left lower lobe is noted with air bronchograms. Superimposed infection/consolidation are difficult to exclude. 3. Incidentally noted punctate thyroid calcifications. 06/18 Bilateral LE Arterial Doppler US: (preliminary) NO Evidence of significant arterial stenosis 06/17 Echocardiogram: (final) Mild concentric left ventricular hypertrophy. The calculated left ventricular EF is 64%. Pseudonormal LV filling pattern, consistent with elevated LA pressure. The left atrium appears to be enlarged. 06/16 Right Ankle X-ray: 1. Limited evaluation of the osseous and soft tissue structures an AP view. 2. Mildly displaced lateral malleolar fracture. 3. Questionable medial and posterior malleolar fractures. 06/16 Bilateral Lower Extremity Venous Doppler US: Negative for DVT 06/15 12-lead EKG, normal sinus rhythm, heart rate 78. 06/15 Chest x-ray interpretation by radiologist; Re-demonstration of moderate left pleural effusion with left basilar opacity, which most likely represents superimposed atelectasis. No significant interval change when compared to most recent prior examination. Prominent interstitial lung markings throughout both lungs may represent pulmonary vascular. ASSESSMENT AND PLAN: 1. Fluid volume overload, missed hemodialysis: -Dialysis per Nephrology. 2. ESRD, needing hemodialysis on admission: -Dialysis per Nephrology; pt normally receives HD Wednesday, , Wednesday 3. Life-threatening hyperkalemia: -Admitting Potassium level 6.6; improving with HD. -Hemodialysis per Nephrology. Potassium level stable. Monitor potassium level. 4. Unstable Right ankle fracture, status post fall on 06/07/2020, ambulatory dysfunction, history of falls: -Orthopedics following, preparations for possible surgery; Cardiology & Pulmonary Clearance were obtained on late evening of 06/20 -Pain control, morphine sulfate 2 mg IV q.3 hours p.r.n., Tylenol No. 3 q.4 hours p.r.n. for moderate pain. Tylenol q.6 hours p.r.n. for mild pain. -PT eval and treat, maintain fall precautions. -Cardiology consult for preoperative cardiac clearance, as well as evaluation of PVD. -Pulmonology consult for preoperative pulmonary clearance, as well as eval of left pleural effusion. -Surgery should occur on a day that follows a dialysis day -Case discussed with Consultants; Proposed date of surgery: 06/26/2020 5. HTN with ESRD: -Hypotension on admission -Blood pressure fluctuates. Resume home medications. Monitor blood pressure. 6. Uncontrolled T2DM with ESRD and Hyperglycemia: -QaE9R=05.6%. Renal diabetic diet. -Low-dose sliding scale insulin. Monitor FSBG. 7. Right Buttock Wound, likely Herpes genitalis: -Wound care MD and Wound Care team consult. -Keep on Valtrex 500 mg p.o. daily for one week and monitor. Apply Mepilex. 8. Moderate Left Pleural Effusion, now s/p Left USG Thoracentesis on 06/19/2020; Atelectasis, history of Asthma: -Pulmonology consult for preoperative pulmonary clearance, as well as eval of left pleural effusion. -Left USG Thoracentesis on 06/19/2020 by IR with 1100cc removed; LDH/Protein/Cell Count/Triglyceride of body fluid pending -HD per Nephrology for fluid removal. -Encourage incentive spirometry. -Monitor CXR/CT Chest results 9. Possible UTI -Makes very minimal amount of urine -c/o Dysuria 06/19 -straight cath was performed to obtain UA C/S sample in order to r/o UTI -06/20 UA results: Large Leuocyte Esterase, Positive Nitrites -Currently on Aztreonam -Awaiting final urine C/S results 10. History of bariatric surgery with Partial Gastrectomy (1/2 of stomach removed): -Vitamin B12, Folate, and Thiamine due to probable poor absorption. 11. Depression (likely Chronic & Acute/Situational), SI: -Resume antidepressant from home if applicable. -Fixed Income Analyst visits with patient. -Psychiatry consult. -Monitor closely for any other verbalization regarding suicide. 12. Documented hx Hyperlipidemia. -Resume home antihyperlipidemic. -No HLD per lipid profile. 13. Severe Constipation, r/o ileus, +recent Fecal Impaction, +External Hemorrhoids: -06/19 +BM -Stool softeners, MiraLAX TID, Dulcolax. -Gastroenterology consult. -Dr. Miles spoke to patient about possible colonoscopy. -Anusol suppository for hemorrhoids 14. Bilateral conjunctivitis: -Ciprofloxacin antibiotic eyedrops as per formulary. 15. Obesity with BMI of 39.13: Dietary restrictions. Prophylaxis: Pepcid, Lovenox, Left lower extremity SCD PPX: Pepcid, Lovenox Discharge Planning: Discharge Disposition: [facility]. Very specific conditions must exist for the surgery to occur. For example, if the potassium is elevated on the planned surgical date, it is likely that Anesthesia will not be in favor of proceeding with the surgery that day. Surgery cannot occur on a dialysis day. Dr. Peterson will need an OR room availa ble for the required duration of the surgery and of course the Cardiac Clearance as well as the Pulmonary Clearance must both be completed beforehand. Case was discussed with Dr. Barrios & Dr. Tanisha Casillas on 06/20/2020; the patient has been cleared by both Cardiology and Pulmonology for surgery on her Left unstable ankle fracture. Proposed date of surgery: 06/26/2020 Inpatient, billing code [id number], time spent 60 minutes.
[2020-06-21] MEDS: AZTREONAM (AZACTAM) 0.5 GM in SODIUM CHLORIDE 0.9% 50ML 50 ML IV SCH ×3 (06:00→21:11)
[2020-06-21] MEDS: POLYETHYLENE GLYCOL 3350 17 GM PACK PO SCH ×3 (06:00→21:12)
[2020-06-21] MEDS: LEVOTHYROXINE SODIUM 75 MCG TAB PO SCH (06:00)
[2020-06-21 06:27] LABS: BASOPHILS # (AUTO) 0.1 (0.0-0.1); BASOPHILS % 0.7 % (0.0-1.0); EOSINOPHILS # (AUTO) 0.6 (0.0-0.4); EOSINOPHILS % 6.6 % (0.0-6.0); HEMATOCRIT 30.6 % (34.2-44.1); HEMOGLOBIN 10.4 g/dL (12.0-16.0); LYMPHOCYTES # (AUTO) 1.6 (1.0-3.2); LYMPHOCYTES % 18.8 % (18.0-39.1); MEAN CORPUSCULAR HEMOGLOBIN 34.3 pg (28-32); MONOCYTES # (AUTO) 0.7 (0.2-0.8); MONOCYTES % 8.5 % (4.4-11.3); NEUTROPHILS # (AUTO) 5.5 (2.1-6.9); NEUTROPHILS % 64.9 % (38.7-80.0); PLATELET COUNT 237 x10e3/uL (140-360); RED BLOOD COUNT 3.03 x10e6/uL (3.6-5.1)
[2020-06-21 06:55] LABS: ANION GAP 19.1 mmol/L (8-16); CALCIUM 9.1 mg/dL (8.4-10.2); CREATININE, SERUM 4.4 mg/dL (0.57-1.11); POTASSIUM 4.1 mmol/L (3.5-5.1)
--- NOTE | 2020-06-21 07:00 | NUR ---
BEDSIDE SHIFT REPORT RECEIVED FROM THE FIELD ADMINISTRATOR RN. EDUCATED PT ABOUT FALL PRECAUTIONS. PT VERBALIZED UNDERSTANDING. CALL LIGHT WITH IN EASY REACH. INSTRUCTED PT TO USE CALL LIGHT FOR ALL THE NEEDS. BED IS LOW AND LOCKED. SIDE RAILS X2. BED ALARM IS ON. PT DENIES NEEDS AT THIS TIME.
--- NOTE | 2020-06-21 07:26 | NUR ---
GAVE BEDSIDE SHIFT REPORT TO ONCOMING NURSE. CALL LIGHT WITHIN REACH. PATIENT IN BED. HOURLY ROUNDING PERFORMED. PATIENT WAS BATHED AND WAS GRATEFUL TO BE CLEANED
[2020-06-21] MEDS: CARVEDILOL 12.5 MG TAB PO SCH ×2 (07:57→17:00)
[2020-06-21] MEDS: HYDRALAZINE HCL 25 MG TAB PO SCH ×3 (07:58→21:00)
[2020-06-21] MEDS: CIPROFLOXACIN (OPTH SOLN) 5 ML BTL OU SCH ×2 (07:58→16:59)
[2020-06-21] MEDS: SEVELAMER CARBONATE 800 MG TAB PO SCH ×3 (07:58→17:00)
[2020-06-21] MEDS: AMLODIPINE BESYLATE 10 MG TAB PO SCH (07:59)
[2020-06-21] MEDS: SODIUM BICARBONATE 650 MG TAB PO SCH ×2 (07:59→17:00)
[2020-06-21] MEDS: TIZANIDINE HCL 4 MG TAB PO SCH ×3 (07:59→21:00)
[2020-06-21] MEDS: FERROUS SULFATE 325 MG TAB PO SCH ×3 (08:00→21:00)
[2020-06-21] MEDS: PREGABALIN 75 MG CAP PO SCH ×2 (08:00→17:00)
[2020-06-21] MEDS: SERTRALINE HCL 50 MG TAB PO SCH (08:00)
[2020-06-21] MEDS: FAMOTIDINE 20 MG/2 ML VIAL IV SCH ×2 (08:03→16:59)
[2020-06-21] MEDS: DOCUSATE SODIUM 100 MG CAP PO SCH ×3 (08:12→21:00)
[2020-06-21] MEDS: FOLIC ACID MDV 1 MG in SODIUM CHLORIDE 0.9% 50ML 50 ML IV SCH (08:12)
[2020-06-21] MEDS: HYDROCORTISONE ACETATE 25 MG/SUPP.RECT SUPP RC SCH ×2 (08:13→17:00)
[2020-06-21] MEDS: INSULIN LISPRO 100 UNIT/1 ML 3ML VIAL SQ SCH ×4 (08:30→21:00)
[2020-06-21] MEDS: THIAMINE HCL INJ 100 MG in SODIUM CHLORIDE 0.9% 50ML 50 ML IV SCH (09:36)
--- NOTE | 2020-06-21 11:25 | NUR ---
PT HAS LOW BP 86/43. PAGED DR. LAKE AND FREDIS ENGEL RIPRAP WORKER AND REPORTED THE SAME.
--- NOTE | 2020-06-21 11:40 | NUR ---
PT VITALS RECHECKED . PT IS AAOX4. BP 102/46. HR 63. PT DENIES NEEDS AT THIS TIME.
[2020-06-21] MEDS ORDERED: SODIUM CHLORIDE 0.9% 250ML 250 ML IV SCH (12:00)
[2020-06-21] MEDS ORDERED: MIDODRINE HCL 5 MG TABLET PO PRN (12:00)
--- NOTE | 2020-06-21 12:05 | NUR ---
BACK RECEIVED FROM DR. LAKE. NEW ORDERS RECEIVED. REPORTED PT BP 102/46. GIVE MIDODRINE 5 MG PO ONCE PER THE . Addendum: 06/21/20 at 1216 by Korey Navarro RN CALL BACK RECEIVED FROM DR. LAKE. NEW ORDERS RECEIVED. REPORTED PT BP 102/46. GIVE MIDODRINE 5 MG PO ONCE PER THE
--- NOTE | 2020-06-21 12:29 | NUR ---
PT VITAL SIGNS RECHECKED. BP 115/46. HR 66 NOTED. PT IS AAOX4. PT DENIES NEEDS AT THIS TIME.
--- NOTE | 2020-06-21 12:30 | NUR ---
BEDSIDE SHIFT REPORT GIVEN TO RAMESH ESTRADA. PT DENIED FURTHER NEEDS.
--- NOTE | 2020-06-21 12:40 | NUR ---
Pt sleeping soundly and no family present. Household Coordinator left a card describing availability of forestry instructor and instructions on how to contact a forestry instructor. ETHAN THOMAS Household Coordinator Spiritual Care Department O: [phone]
--- NOTE | 2020-06-21 16:34 | Progress Note ---
DATE: SUBJECTIVE: The patient had thoracentesis done 3 days ago. There was 1100 mL of transudative fluid removed. Her breathing is improved. She is awaiting surgery on her ankle. PHYSICAL EXAMINATION: VITAL SIGNS: Blood pressure is 148/55 and saturation is 98%. The pulse is 66. HEENT: Shows no facial swelling or erythema. LYMPHATIC: Shows no submandibular, cervical, or supraclavicular adenopathy. CARDIAC: Reveals regular rate and rhythm with normal S1 and S2. LUNGS: Auscultation of lungs reveals rhonchorous breath sounds bilaterally. There is no wheezing. ABDOMEN: Soft and nontender. There is no rebound or guarding. EXTREMITIES: Shows no leg edema or calf tenderness. LABORATORY DATA: White blood cell count is 8.5, hemoglobin is 10.4, and platelet count is 237. The BUN to creatinine ratio is 21 to 4.4. The other electrolytes are within normal limits. Blood sugar is 230 to 336. RADIOGRAPHIC DATA: Chest x-ray shows no active disease. IMPRESSION: 1. Transudative left pleural effusion that has resolved with thoracentesis. 2. End-stage renal disease. 3. Trimalleolar fracture of the ankle. 4. Diabetes. PLAN: 1. The patient is cleared for surgery from the pulmonary perspective. 2. Continue dialysis as needed. 3. Rescue inhaler as needed. MD ELIUD Mathew/LIZA /[id number]
--- NOTE | 2020-06-21 19:24 | NUR ---
Received change of shift report from AM nurse. Walking rounds completed.
[2020-06-22] VITALS (9 sets, daily range): BP systolic 98–148; BP diastolic 48–62
--- NOTE | 2020-06-22 04:44 | NUR ---
Patient resting quitly at this time. Patient slightly confused at times. Continue monitor.
--- NOTE | 2020-06-22 05:15 | NUR ---
Patient resting quitly at this time. No c/o.
[2020-06-22] MEDS: POLYETHYLENE GLYCOL 3350 17 GM PACK PO SCH ×3 (05:22→21:10)
[2020-06-22] MEDS: AZTREONAM (AZACTAM) 0.5 GM in SODIUM CHLORIDE 0.9% 50ML 50 ML IV SCH ×3 (05:22→22:00)
[2020-06-22] MEDS: LEVOTHYROXINE SODIUM 75 MCG TAB PO SCH (05:23)
[2020-06-22 06:06] LABS: BASOPHILS # (AUTO) 0.1 (0.0-0.1); BASOPHILS % 0.6 % (0.0-1.0); EOSINOPHILS # (AUTO) 0.5 (0.0-0.4); HEMATOCRIT 27.7 % (34.2-44.1); HEMOGLOBIN 9.2 g/dL (12.0-16.0); LYMPHOCYTES # (AUTO) 1.4 (1.0-3.2); LYMPHOCYTES % 15.6 % (18.0-39.1); MEAN CORPUSCULAR HEMOGLOBIN 32.7 pg (28-32); MEAN CORPUSCULAR HGB CONC 33.2 g/dL (31-35); MEAN CORPUSCULAR VOLUME 98.6 fL (81-99); MONOCYTES # (AUTO) 0.6 (0.2-0.8); MONOCYTES % 6.3 % (4.4-11.3); NEUTROPHILS # (AUTO) 6.2 (2.1-6.9); NEUTROPHILS % 70.9 % (38.7-80.0); PLATELET COUNT 238 x10e3/uL (140-360); RED BLOOD COUNT 2.81 x10e6/uL (3.6-5.1); RED CELL DISTRIBUTION WIDTH 12.8 % (11.7-14.4)
[2020-06-22 06:37] LABS: ANION GAP 20.1 mmol/L (8-16); CALCIUM 8.9 mg/dL (8.4-10.2); CREATININE, SERUM 5.99 mg/dL (0.57-1.11); MAGNESIUM 2.6 MG/DL (1.3-2.1); PHOSPHORUS 5.3 MG/DL (2.3-4.7); POTASSIUM 4.1 mmol/L (3.5-5.1)
--- NOTE | 2020-06-22 07:35 | Progress Note ---
DATE: 06/21/2020 Renal Progress Note SUBJECTIVE: Followed for end-stage renal disease, dialysis is done on Wednesday, , and Wednesday. The patient tolerated dialysis without any problems yesterday. No nausea, no vomiting, no shortness of breath. OBJECTIVE: VITAL SIGNS: Have been noted and are stable. LUNGS: Clear to auscultation bilaterally. CARDIOVASCULAR: S1, S2. No rub. ABDOMEN: Soft, nontender. EXTREMITIES: No edema. LABORATORY DATA: H and H 10.4 and 30.6. Chemistries; sodium 132, potassium 4.1, BUN 21, creatinine 4.4. IMPRESSION AND PLAN: 1. End-stage renal disease. We will continue to provide dialysis Wednesday, , and Wednesday. 2. Hypertension. Blood pressure is more or less controlled. There is some labile BP, however mostly it is within range. We will continue to monitor. 3. Anemia of chronic disease. We will continue to monitor closely. 4. Fluid overload has largely resolved now. We will continue to monitor and ultrafilter with dialysis by blood pressure. MD OSWALDO Escamilla/MODL /[id number]
[2020-06-22] MEDS: CARVEDILOL 12.5 MG TAB PO SCH ×2 (08:00→17:40)
[2020-06-22] MEDS: HYDRALAZINE HCL 25 MG TAB PO SCH ×3 (08:26→20:47)
[2020-06-22] MEDS: AMLODIPINE BESYLATE 10 MG TAB PO SCH (08:27)
[2020-06-22] MEDS: FERROUS SULFATE 325 MG TAB PO SCH ×3 (08:33→20:44)
[2020-06-22] MEDS: DOCUSATE SODIUM 100 MG CAP PO SCH ×3 (08:33→20:44)
[2020-06-22] MEDS: SEVELAMER CARBONATE 800 MG TAB PO SCH ×3 (08:33→17:40)
[2020-06-22] MEDS: SERTRALINE HCL 50 MG TAB PO SCH (08:34)
[2020-06-22] MEDS: SODIUM BICARBONATE 650 MG TAB PO SCH ×2 (08:34→17:50)
[2020-06-22] MEDS: PREGABALIN 75 MG CAP PO SCH ×2 (08:34→17:40)
[2020-06-22] MEDS ORDERED: SODIUM CHLORIDE 0.9% 1000ML 2,000 ML ONE (09:33)
[2020-06-22] MEDS ORDERED: INSULIN REGULAR, HUMAN 100 UNIT/1 ML 3ML VIAL ONE (09:33)
[2020-06-22] MEDS: HYDROCORTISONE ACETATE 25 MG/SUPP.RECT SUPP RC SCH ×2 (09:50→17:00)
[2020-06-22] MEDS: CIPROFLOXACIN (OPTH SOLN) 5 ML BTL OU SCH ×2 (09:50→17:40)
[2020-06-22] MEDS: TIZANIDINE HCL 4 MG TAB PO SCH ×3 (09:50→20:44)
[2020-06-22] MEDS: FAMOTIDINE 20 MG/2 ML VIAL IV SCH ×2 (09:50→17:40)
[2020-06-22] MEDS: FOLIC ACID MDV 1 MG in SODIUM CHLORIDE 0.9% 50ML 50 ML IV SCH (10:34)
[2020-06-22] MEDS: THIAMINE HCL INJ 100 MG in SODIUM CHLORIDE 0.9% 50ML 50 ML IV SCH (10:34)
[2020-06-22] MEDS: INSULIN LISPRO 100 UNIT/1 ML 3ML VIAL SQ SCH ×4 (10:36→20:31)
--- NOTE | 2020-06-22 17:14 | NUR ---
pt was unavailabe due to HD tx ..f/u on 06-24-2020 Addendum: 06/24/20 at 0215 by Luther Amaya PTA Amended: Links added.
--- NOTE | 2020-06-22 17:28 | Progress Note ---
DATE: 06/22/2020 Nephrology Progress Note SUBJECTIVE: The patient was seen on hemodialysis. Seems to be tolerating well, although the blood pressure did drop during the treatment without causing symptoms. Current blood pressure is 120/65. Blood flow 350, dialysate flow 600 mL/minute. Dialysate bath is 2K, 2.5 calcium. Goal ultrafiltration is about 2.5-2 L as tolerated. No problem with dialysis access. Serum chemistries from yesterday noted. Hemoglobin was 9.2. Potassium this morning is 4.1. Phu Banda MD [facility]/MODL /[id number]
[2020-06-23] VITALS (11 sets, daily range): BP systolic 121–172; BP diastolic 51–88
[2020-06-23] MEDS: AZTREONAM (AZACTAM) 0.5 GM in SODIUM CHLORIDE 0.9% 50ML 50 ML IV SCH ×3 (05:18→22:12)
[2020-06-23] MEDS: POLYETHYLENE GLYCOL 3350 17 GM PACK PO SCH ×3 (06:57→22:13)
[2020-06-23] MEDS: LEVOTHYROXINE SODIUM 75 MCG TAB PO SCH (07:41)
[2020-06-23] MEDS: CARVEDILOL 12.5 MG TAB PO SCH ×2 (08:00→16:46)
[2020-06-23] MEDS: DOCUSATE SODIUM 100 MG CAP PO SCH ×3 (08:17→22:12)
[2020-06-23] MEDS: SODIUM BICARBONATE 650 MG TAB PO SCH ×2 (08:17→16:46)
[2020-06-23] MEDS: SEVELAMER CARBONATE 800 MG TAB PO SCH ×3 (08:17→16:46)
[2020-06-23] MEDS: PREGABALIN 75 MG CAP PO SCH (08:17)
[2020-06-23] MEDS: FAMOTIDINE 20 MG/2 ML VIAL IV SCH ×2 (08:17→15:28)
[2020-06-23] MEDS: FERROUS SULFATE 325 MG TAB PO SCH ×3 (08:17→22:12)
[2020-06-23] MEDS: TIZANIDINE HCL 4 MG TAB PO SCH ×3 (08:18→22:12)
[2020-06-23] MEDS: HYDROCORTISONE ACETATE 25 MG/SUPP.RECT SUPP RC SCH ×2 (08:18→16:48)
[2020-06-23] MEDS: SERTRALINE HCL 50 MG TAB PO SCH (08:18)
[2020-06-23] MEDS: FOLIC ACID MDV 1 MG in SODIUM CHLORIDE 0.9% 50ML 50 ML IV SCH (08:32)
[2020-06-23] MEDS: HYDRALAZINE HCL 25 MG TAB PO SCH ×3 (08:32→22:12)
[2020-06-23] MEDS: AMLODIPINE BESYLATE 10 MG TAB PO SCH (08:33)
[2020-06-23] MEDS: INSULIN LISPRO 100 UNIT/1 ML 3ML VIAL SQ SCH ×4 (08:59→22:13)
[2020-06-23] MEDS ORDERED: VALACYCLOVIR HCL 500 MG TAB PO SCH (09:00)
--- NOTE | 2020-06-23 21:42 | Progress Note ---
DATE: 06/23/2020 Nephrology Followup Note SUBJECTIVE: Followup for end-stage kidney disease, on maintenance hemodialysis Wednesday, , and Wednesday. Tolerated dialysis yesterday. OBJECTIVE: GENERAL: The patient is alert and oriented x3. Complains of mid abdominal pain. VITAL SIGNS: Stable. Blood pressure 121/51, respirations 16 per minute, pulse 70 per minute, afebrile. Pulse oximetry on room air. NECK: Without JVP. RESPIRATORY: Bilateral air entry without wheezing. CARDIOVASCULAR: Shows normal S1, S2. ABDOMEN: Soft. Depressible with minimal tenderness in the mid area. No flaquita rebound tenderness. EXTREMITIES: Without pitting edema or cyanosis. LABORATORY DATA: None drawn today. IMPRESSION: 1. End-stage kidney disease, plan next dialysis on Wednesday. Expected to get Orthopedic Surgery on next Wednesday. 2. Blood pressure, stable. Continue current blood pressure medications including hydralazine and carvedilol. 3. Anemia secondary to chronic kidney disease. Current hemoglobin is stable. MD CORAL Bangura/LIZA /[id number]
[2020-06-24] VITALS (8 sets, daily range): BP systolic 97–138; BP diastolic 49–62
[2020-06-24] MEDS: PANTOPRAZOLE 40 MG 10ML VIAL IV SCH ×3 (01:45→21:12)
[2020-06-24] MEDS: POLYETHYLENE GLYCOL 3350 17 GM PACK PO SCH ×3 (05:19→21:17)
[2020-06-24] MEDS: LEVOTHYROXINE SODIUM 75 MCG TAB PO SCH (05:20)
[2020-06-24] MEDS: AZTREONAM (AZACTAM) 0.5 GM in SODIUM CHLORIDE 0.9% 50ML 50 ML IV SCH (05:47)
[2020-06-24 06:37] LABS: BASOPHILS # (AUTO) 0.1 (0.0-0.1); BASOPHILS % 0.8 % (0.0-1.0); EOSINOPHILS # (AUTO) 0.4 (0.0-0.4); HEMOGLOBIN 8.7 g/dL (12.0-16.0); LYMPHOCYTES # (AUTO) 1.7 (1.0-3.2); LYMPHOCYTES % 23.1 % (18.0-39.1); MEAN CORPUSCULAR HEMOGLOBIN 32.3 pg (28-32); MEAN CORPUSCULAR HGB CONC 32.2 g/dL (31-35); MEAN CORPUSCULAR VOLUME 100.4 fL (81-99); MONOCYTES # (AUTO) 0.5 (0.2-0.8); MONOCYTES % 7.3 % (4.4-11.3); NEUTROPHILS # (AUTO) 4.4 (2.1-6.9); NEUTROPHILS % 62.4 % (38.7-80.0); PLATELET COUNT 221 x10e3/uL (140-360); RED BLOOD COUNT 2.69 x10e6/uL (3.6-5.1); RED CELL DISTRIBUTION WIDTH 12.7 % (11.7-14.4)
[2020-06-24 06:49] LABS: ANION GAP 19.1 mmol/L (8-16); CALCIUM 8.9 mg/dL (8.4-10.2); CREATININE, SERUM 6.38 mg/dL (0.57-1.11); POTASSIUM 4.1 mmol/L (3.5-5.1)
--- NOTE | 2020-06-24 07:00 | NUR ---
RECEIVED BEDSIDE SHIFT REPORT WITH OFF GOING NIGHT NURSE. PATIENT IN STABLE CONDITION, NO S/S OF DISTRESS NOTED. NO PAIN VOICED. RESPIRATIONS EVEN AND NON LABORED. TELEMETRY APPLIED. IV SITES ASYMPTOMATIC AND PATENT, TRANSPARENT DRESSING C/D/I. WOUNDS NOTED TO THE BOTTOM DRESSING APPLIED C/D/I. BED IN LOWEST POSITION AND LOCKED. CALL LIGHT WITHIN REACH.
[2020-06-24] MEDS: INSULIN LISPRO 100 UNIT/1 ML 3ML VIAL SQ SCH ×4 (07:30→21:13)
[2020-06-24] MEDS ORDERED: SODIUM CHLORIDE 0.9% 50ML 50 ML ONE (08:04)
[2020-06-24] MEDS ORDERED: SODIUM CHLORIDE 0.9% 1000ML 2,000 ML ONE (08:29)
[2020-06-24] MEDS: CARVEDILOL 12.5 MG TAB PO SCH ×2 (08:30→17:00)
[2020-06-24] MEDS: SEVELAMER CARBONATE 800 MG TAB PO SCH ×3 (08:31→17:00)
[2020-06-24] MEDS: FAMOTIDINE 20 MG/2 ML VIAL IV SCH ×2 (08:32→18:09)
[2020-06-24] MEDS: HYDRALAZINE HCL 25 MG TAB PO SCH ×3 (08:35→21:17)
[2020-06-24] MEDS: DOCUSATE SODIUM 100 MG CAP PO SCH ×3 (08:35→21:14)
[2020-06-24] MEDS: AMLODIPINE BESYLATE 10 MG TAB PO SCH (08:36)
[2020-06-24] MEDS: TIZANIDINE HCL 4 MG TAB PO SCH ×3 (08:36→21:13)
[2020-06-24] MEDS: FERROUS SULFATE 325 MG TAB PO SCH ×3 (08:36→21:14)
[2020-06-24] MEDS: HYDROCORTISONE ACETATE 25 MG/SUPP.RECT SUPP RC SCH ×2 (08:37→18:09)
[2020-06-24] MEDS: SERTRALINE HCL 50 MG TAB PO SCH (08:37)
[2020-06-24] MEDS ORDERED: EPOETIN ALFA-EPBX 10,000 UNIT/ML VIAL SC SCH (09:00)
[2020-06-24] MEDS: FOLIC ACID MDV 1 MG in SODIUM CHLORIDE 0.9% 50ML 50 ML IV SCH (12:56)
--- NOTE | 2020-06-24 14:00 | Progress Note ---
DATE: 06/24/2020 Renal Progress Note SUBJECTIVE: Followed for end-stage renal disease, dialysis being done Wednesday, , and Wednesday. No nausea, no vomiting, no shortness of breath. Has right lower extremity ankle fracture being followed by her surgeon. OBJECTIVE: VITAL SIGNS: Have been noted. Blood pressure is on the low side of normal, low 100s/50s. The patient is afebrile, 64 pulse. LUNGS: Clear to auscultation bilaterally. CARDIOVASCULAR: S1, S2. No rub. ABDOMEN: Soft, nontender. EXTREMITIES: No edema. LABORATORY DATA: Have been reviewed from today. H and H are 8.7 and 27.0, potassium 4.1, BUN 35, creatinine 6.3. IMPRESSION AND PLAN: 1. End-stage renal disease. We will continue to provide dialysis Wednesday, , and Wednesday. 2. Hypertension. We will decrease carvedilol dose to 12.5 mg twice a day, hydralazine to 25 mg three times daily and discontinue the amlodipine. This will help improve the patient's blood pressure and avoid hypotension especially during dialysis. 3. Anemia of chronic disease, stable. MD OSWALDO Escamilla/GEOVANNYL /[id number]
--- NOTE | 2020-06-24 15:54 | NUR ---
Nutrition Intervention Note RD Recommendation(s) for Physician: - Continue renal/diabetic diet Plan of Care: RD following, monitoring for tolerance and adequacy, oral supplement recommendation Nutrition reason for involvement: follow up RD Assessment: 06/24: Follow up. Chart reviewed. Pt is awaiting to have orthopedic surgery. Pt reports she is eating <50% of meals and does not want a nutrition supplement drink. Pt provided RD with meal preferences. Will continue to monitor. 06/20: Follow up and RD received consult for renal diet education. Chart reviewed. Pt reports her meal intake is varied and pt is ordered Nepro BID. RD provided pt with renal diet education materials and all questions were answered. Obtain pts meal preferences. Will continue to monitor. 06/18: 54 YOF admitted for missed HD tx admitted for dialysis needs and hyperkalemia. Pt seen today for ESRD dx on admit. Noted poor intake, currently 25-50% of meals. Pt reports poor intake per food preferences and diet restrictions. Pt food preferences obtain and pt receptive to Nepro, requests to only receive BID- RD to order. Pt denies GI distress today, several BMs yesterday noted. Pt reports UBW of 94kg dry weight, no wt loss noted. All questions and concerns addressed at time of visit. Chart reviewed. Will continue to monitor. Principal Problems/Diagnoses: ESRD, hyperkalemia, volume overload PMH: ESRD on HD, HTN, DM, HLD, orthostatic hypotension, bariatric surgery GI: soft, nontender abdomen, last recorded BM 06/20 Skin: bilateral gluteal redness Labs: 06/24: Na 139, K 4.1, BUN 35, Cr 6.38, Glu 138, Ca 8.9 06/20: Na 135, K 4.6, BUN 29, Cr 6.45, Glu 122, Phos 5.9, mg 2.8 06/18: Na 136, K 4.4, BUN 42, Cr 7.33, Gluc 126, Phos 6.6, Mg 3.3, POC Gluc 81-145 Meds: folic acid, insulin, ferrous sulfate, colace, protonix, pepcid, colace, antibiotic, levothyroxine, zofran, miralalx, renvela Ht: 64 in Wt: 177 lbs (06/20) 224.06 lb (06/18) - Suspect possible weight error or fluid changes BMI: 30.4 kg/m2 IBW: 120 lb Malnutrition Evaluation (06/18/20) The patient does not meet criteria for a specified degree of malnutrition at this time. Will re-evaluate at follow-up as appropriate. Energy intake: moderate <75% of estimated energy requirements for >7 days Weight loss: no reported wt loss, UBW 94 kg Fat loss: none, ample skinfold thickness to arm, bulging eye pads Muscle loss: none, shoulder round Supporting Evidence: Fluid accumulation: none, fluid shifts related to HD Functional Status: not assessed Nutrition Prescription (Diet Order):1800 ADA, Renal Estimated Nutritional Needs: [id number] calories/day (22-25 kcal/kg IBW) 82-109 g protein/day (1.5-2 g pro/kg IBW) Diet Adequacy: Not meeting calorie needs, Not meeting protein needs Diet Tolerance: tolerating po Diet Education Needs Assessment: (06/20) RD consulted for renal diet education. RD provided pt with renal diet education materials. Pt was mainly concerned about foods with potassium which RD explained. All questions about the diet were answered and RD provided pt with dietitian office number if she has further questions. Nutrition Care Level: Moderate Nutrition Diagnosis: Inadequate energy and protein intake related to current medical condition as evidenced by not meeting needs. Goal: Patient will meet 75-100% of estimated needs by follow up Progress: goal not met Interventions: -Carbohydrate and Mineral modified diet Monitoring/Evaluation: -Total energy intake, Total protein intake, Modified diet, Weight change Signed: Tricia Cardona RD, LD
--- NOTE | 2020-06-24 16:00 | NUR ---
OLVIN PARRA PARALEGAL SUPERVISOR NOTIFIED ABOUT THE PATIENT BLOOD SUGAR 425. RECEIVED ORDER TO GIVE AN EXTRA 10 UNITS IN COMBINATION WITH THE SLIDING SCALE.
[2020-06-24] MEDS ORDERED: INSULIN LISPRO 100 UNIT/1 ML 3ML VIAL SQ ONE (16:30)
--- NOTE | 2020-06-24 16:34 | NUR ---
Date of Service: 06/24/2020 PRIMARY CARE PHYSICIAN: The patient does not have a PCP. OUTPATIENT PHYSICIANS: 1. Outpatient optical lathe operator, Dr. Kearns. 2. Outpatient orthopedic, Dr. Peterson. 3. Endoscopy Nurse, Dr. Parker. Family contact: Bradley () [phone]. CONSULTING PHYSICIANS: 1. Saurabh Peterson M.D. with Orthopedics 2. Gerhard Kearns M.D. with Nephrology 3. Erlin Cameron M.D. with Wound Care 4. Vinod Rosenthal M.D. with Cardiology 5. Clyde Barrios M.D. with Pulmonology 6. Costa Miles M.D. with Gastroenterology 7. Mirian Peters M.D. with Psychiatry CHIEF COMPLAINT: Missed dialysis. REVIEW OF SYSTEMS: Bilateral eye infection. The patient states her shortness of breath has improved with dialysis. Reports that fluid has been in her lungs since November. Increased stress lately, problems with her , having to go to the [facility], has had thoughts of suicide recently. Reports bed sores on bi lateral buttocks and sacrum areas. States she has had some chest pain in the center of her chest, which she attributes to stress. However, none right now. External hemorrhoids, reports she still feels constipated. Unable to ambulate since the ankle fracture occurred, along with pain with movement or any light touch. She states that she fell on 06/07/2020, which caused the right ankle to shatter. Her most recent fall was on 06/15/2020, when she fell out of bed at [facility], hitting her right leg on the bedside table. She has been taking [place] for the pain. She complains of having "hardening" in both lower legs. No BM today, +flatus. +Shooting pains right knee to ankle; "severe, excruciating". Breathing easier post thoracentesis! PHYSICAL EXAMINATION: VITAL SIGNS: Temperature 97.3, pulse 62, 100/43, respirations 16, SpO2 99% on room air. Height 5 feet 4 inches. Weight 228 pounds. BMI 39.13. GENERAL: Supine in recliner chair at bedside. No acute distress. LUNGS: Clear to auscultation. Respiratory pattern even and unlabored. No supplemental oxygen. HEENT: EOMI. NECK: Supple. No thyromegaly, lymphadenopathy, or JVD. CARDIOVASCULAR: Regular rate and rhythm without murmur. ABDOMEN: Bowel sounds positive. Soft, nontender. No obvious distention. No guarding. EXTREMITIES: No edema, clubbing or cyanosis. She has a large bulky dressing on the right ankle, is able to move her toes. Palpation of the left lower extremity reveals the aforementioned "hardened" area in the left calf. NEUROLOGICAL: GCS is 15, nonfocal. PSYCHIATRIC: Not tearful, but emotionally depressed. DIAGNOSTIC STUDIES LABORATORY DATA: Reviewed. 06/24: FSBG 176, 255, 408, 425. H/H 8.05/13 06/20 Final Urine C/S: No growth in 36-48 hrs. 06/20 UA: Large Leuocyte Esterase, Positive Nitrites, Protein > 300, Large Blood, WBC > 50, RBC 21-50, Moderate Bacteria, Few Epithelial Cells 06/20: Na 135, K 4.6, WBC 9.52, h/h 10.6/32.4 06/19: Potassium 4.1, BUN 19, Cr 4.66. WBC 8.81, h/h 8.6/26.9 06/18: H/H 8.6/26.9 06/17: Lab Holiday 06/16: WBC 8.44, hemoglobin 9.0, hematocrit 29, platelets 281, neutrophils 71.7%. Na 137, K 5.5, Cl 98, CO2 27, BUN 48, Cr 7.69, eGFR 5, glucose 184 EfN3M=03.6%. No HLD per lipid profile. Cardiac Biomarkers were negative x 4 sets. 06/15: WBC 11.38, RBCs 3.09, hemoglobin 10, hematocrit 31.2, platelets 292, neutrophils 80.6%. PT 12.5, INR 0.89, PTT 28.1. Sodium 135, potassium 6.6, chloride 96, CO2 of 24, anion gap 21.6, BUN 81, creatinine 10.64, estimated GFR 4. BUN and creatinine ratio 8, glucose 250. Fingerstick blood glucose level 175, calcium 9.1, total bilirubin 0.6, AST 30, ALT 20, alkaline phosphatase 226. Creatine kinase 96, CK-MB 2.4, troponin I 0.066. Total protein 6.8, albumin 3.1. Repeat of cardiac biomarkers; creatine kinase 74, CK-MB 1.9, troponin I 0.063. Coronavirus PCR collected on 06/15/2020 is pending. Hepatitis Panel pending. IMAGING/OTHER: 06/19 Post-thoracentesis CXR: Significant improvement in the left pleural effusion. Trace pleural effusion is noted. Negative for pneumothorax. 06/18 CT Chest without contrast: 1. Moderate left pleural effusion. No evidence of loculations. Small effusion was noted on CT dated 12/11/2019. 2. Atelectasis of the left lower lobe is noted with air bronchograms. Superimposed infection/consolidation are difficult to exclude. 3. Incidentally noted punctate thyroid calcifications. 06/18 Bilateral LE Arterial Doppler US: (preliminary) NO Evidence of significant arterial stenosis 06/17 Echocardiogram: (final) Mild concentric left ventricular hypertrophy. The calculated left ventricular EF is 64%. Pseudonormal LV filling pattern, consistent with elevated LA pressure. The left atrium appears to be enlarged. 06/16 Right Ankle X-ray: 1. Limited evaluation of the osseous and soft tissue structures an AP view. 2. Mildly displaced lateral malleolar fracture. 3. Questionable medial and posterior malleolar fractures. 06/16 Bilateral Lower Extremity Venous Doppler US: Negative for DVT 06/15 12-lead EKG, normal sinus rhythm, heart rate 78. 06/15 Chest x-ray interpretation by radiologist; Re-demonstration of moderate left pleural effusion with left basilar opacity, which most likely represents superimposed atelectasis. No significant interval change when compared to most recent prior examination. Prominent interstitial lung markings throughout both lungs may represent pulmonary vascular. ASSESSMENT AND PLAN: 1. Fluid volume overload, missed hemodialysis: -Dialysis per Nephrology. 2. ESRD, needing hemodialysis on admission: -Dialysis per Nephrology; pt normally receives HD Wednesday, , Wednesday; HD planned tomorrow 3. Life-threatening hyperkalemia: -Admitting Potassium level 6.6; improving with HD. -Hemodialysis per Nephrology. Potassium level stable. Monitor potassium level. 4. Unstable Right ankle fracture, status post fall on 06/07/2020, ambulatory dysfunction, history of falls: -Orthopedics following, preparations for possible surgery; Cardiology & Pulmonary Clearance were obtained on late evening of 06/20 -Pain control, morphine sulfate 2 mg IV q.3 hours p.r.n., Tylenol No. 3 q.4 hours p.r.n. for moderate pain. Tylenol q.6 hours p.r.n. for mild pain. -PT eval and treat, maintain fall precautions. -Cardiology consult for preoperative cardiac clearance, as well as evaluation of PVD. -Pulmonology consult for preoperative pulmonary clearance, as well as eval of left pleural effusion. -Surgery should occur on a day that follows a dialysis day -Case discussed with Consultants; Proposed date of surgery: 06/26/2020 5. HTN with ESRD: -Hypotension on admission -Blood pressure fluctuates. Resume home medications. Monitor blood pressure. 6. Uncontrolled T2DM with ESRD and Hyperglycemia: -LrV1D=29.6%. Renal diabetic diet. -Low-dose sliding scale insulin. Monitor FSBG. FSBG elevated today; pt states she usually takes Lantus Insulin 25 units q hs at home. Lantus 10 units q hs added. 7. Right Buttock Wound, likely Herpes genitalis: -Wound care MD and Wound Care team consult. -Keep on Valtrex 500 mg p.o. daily for one week and monitor. Apply Mepilex. 8. Moderate Left Pleural Effusion, now s/p Left USG Thoracentesis on 06/19/2020; Atelectasis, history of Asthma: -Pulmonology consult for preoperative pulmonary clearance, as well as eval of left pleural effusion. -Left USG Thoracentesis on 06/19/2020 by IR with 1100cc removed; LDH/Protein/Cell Count/Triglyceride of body fluid pending -HD per Nephrology for fluid removal. -Encourage incentive spirometry. -Monitor CXR/CT Chest results 9. Possible UTI -Makes very minimal amount of urine -c/o Dysuria 06/19 -straight cath was performed to obtain UA C/S sample in order to r/o UTI -06/20 UA results: Large Leuocyte Esterase, Positive Nitrites -06/20 Final Urine C/S: No growth in 36-48 hrs; Aztreonam discontinued on 06/24. 10. History of bariatric surgery with Partial Gastrectomy (1/2 of stomach removed): -Vitamin B12, Folate, and Thiamine due to probable poor absorption. 11. Depression (likely Chronic & Acute/Situational), SI: -Resume antidepressant from home if applicable. -Cardiac Rehabilitation Program Director visits with patient. -Psychiatry consult. -Monitor closely for any other verbalization regarding suicide. 12. Documented hx Hyperlipidemia. -Resume home antihyperlipidemic. -No HLD per lipid profile. 13. Severe Constipation, r/o ileus, +recent Fecal Impaction, +External Hemorrhoids: -06/19 +BM -Stool softeners, MiraLAX TID, Dulcolax. -Gastroenterology consult. -Dr. Miles spoke to patient about possible colonoscopy. -Anusol suppository for hemorrhoids 14. Bilateral conjunctivitis: -Ciprofloxacin antibiotic eyedrops as per formulary. 15. Obesity with BMI of 39.13: Dietary restrictions. Prophylaxis: Pepcid, Lovenox, Left lower extremity SCD PPX: Pepcid, Lovenox Discharge Planning: Discharge Disposition: [facility]. Very specific conditions must exist for the surgery to occur. For example, if the potassium is elevated on the planned surgical date, it is likely that Anesthesia will not be in favor of proceeding with the surgery that day. Surgery cannot occur on a dialysis day. Dr. Peterson will need an OR room availa ble for the required duration of the surgery and of course the Cardiac Clearance as well as the Pulmonary Clearance must both be completed beforehand. Case was discussed with Dr. Barrios & Dr. Tanisha Casillas on 06/20/2020; the patient has been cleared by both Cardiology and Pulmonology for surgery on her Left unstable ankle fracture. Proposed date of surgery: 06/26/2020 Inpatient, billing code [id number], time spent 60 minutes.
--- NOTE | 2020-06-24 19:21 | NUR ---
COMPLETED BEDSIDE SHIFT REPORT AND ROUNDING WITH THE ONCOMING NIGHT NURSE. PATIENT IN STABLE CONDITION, NO S/S OF DISTRESS NOTED. TELEMETRY APPLIED. IV SITE ASYMPTOMATIC AND PATENT, TRANSPARENT DRESSING C/D/I. FOAM DRESSING APPLIED TO THE SACRAL AREA C/D/I. DALIA WRAP APPLIED TO THE LEFT LOWER EXTREMITY C/D/I. BED IN LOWEST POSITION AND LOCKED, SIDE RAILS X 2, NON SKID SOCKS APPLIED. CALL LIGHT WITHIN REACH.
[2020-06-24] MEDS ORDERED: INSULIN GLARGINE 100 UNITS/ML VIAL SQ SCH (21:00)
[2020-06-25] VITALS (8 sets, daily range): BP systolic 126–173; BP diastolic 57–78
[2020-06-25] MEDS: POLYETHYLENE GLYCOL 3350 17 GM PACK PO SCH (05:55)
[2020-06-25] MEDS: LEVOTHYROXINE SODIUM 75 MCG TAB PO SCH (05:55)
[2020-06-25] MEDS: ACETAMINOPHEN 325 MG TAB PO PRN ×2 (05:56→13:48)
[2020-06-25] MEDS ORDERED: BISACODYL 5 MG TAB EC PO ONE (06:00)
--- NOTE | 2020-06-25 07:00 | NUR ---
BEDSIDE SHIFT REPORT RECEIVED FROM THE LIVESTOCK HANDLER RN. EDUCATED PT ABOUT FALL PRECAUTIONS. PT VERBALIZED UNDERSTANDING. CALL LIGHT WITH IN EASY REACH. INSTRUCTED PT TO USE CALL LIGHT FOR ALL THE NEEDS. BED IS LOW AND LOCKED. SIDE RAILS X2. BED ALARM IS ON. PT DENIES NEEDS AT THIS TIME.
[2020-06-25 07:09] LABS: BASOPHILS # (AUTO) 0.1 (0.0-0.1); BASOPHILS % 0.8 % (0.0-1.0); EOSINOPHILS # (AUTO) 0.4 (0.0-0.4); EOSINOPHILS % 5.6 % (0.0-6.0); HEMATOCRIT 27.6 % (34.2-44.1); LYMPHOCYTES # (AUTO) 1.5 (1.0-3.2); LYMPHOCYTES % 19.5 % (18.0-39.1); MEAN CORPUSCULAR HEMOGLOBIN 32.3 pg (28-32); MEAN CORPUSCULAR HGB CONC 32.6 g/dL (31-35); MEAN CORPUSCULAR VOLUME 98.9 fL (81-99); MONOCYTES # (AUTO) 0.5 (0.2-0.8); NEUTROPHILS # (AUTO) 5.3 (2.1-6.9); NEUTROPHILS % 67.8 % (38.7-80.0); PLATELET COUNT 204 x10e3/uL (140-360); RED BLOOD COUNT 2.79 x10e6/uL (3.6-5.1); RED CELL DISTRIBUTION WIDTH 12.8 % (11.7-14.4)
[2020-06-25 07:32] LABS: ANION GAP 22.4 mmol/L (8-16); CALCIUM 8.8 mg/dL (8.4-10.2); CREATININE, SERUM 7.71 mg/dL (0.57-1.11); MAGNESIUM 2.7 MG/DL (1.3-2.1); PHOSPHORUS 4.1 MG/DL (2.3-4.7); POTASSIUM 4.4 mmol/L (3.5-5.1)
--- NOTE | 2020-06-25 07:45 | NUR ---
BOILER MECHANIC AT BEDSIDE.
[2020-06-25] MEDS: PANTOPRAZOLE 40 MG 10ML VIAL IV SCH ×2 (08:00→21:19)
[2020-06-25] MEDS: INSULIN LISPRO 100 UNIT/1 ML 3ML VIAL SQ SCH ×5 (08:00→21:22)
[2020-06-25] MEDS: FAMOTIDINE 20 MG/2 ML VIAL IV SCH ×2 (08:00→16:45)
[2020-06-25] MEDS: CARVEDILOL 12.5 MG TAB PO SCH ×2 (08:00→16:46)
[2020-06-25] MEDS: SEVELAMER CARBONATE 800 MG TAB PO SCH ×3 (08:03→16:46)
[2020-06-25] MEDS: HYDROCORTISONE ACETATE 25 MG/SUPP.RECT SUPP RC SCH ×2 (09:00→16:05)
[2020-06-25] MEDS: DOCUSATE SODIUM 100 MG CAP PO SCH ×3 (09:00→21:20)
[2020-06-25] MEDS: HYDRALAZINE HCL 25 MG TAB PO SCH ×4 (09:00→21:20)
--- NOTE | 2020-06-25 10:23 | Progress Note ---
DATE: 06/25/2020 Renal Progress Note SUBJECTIVE: Followed for end-stage renal disease, tolerating dialysis Wednesday, , and Wednesday, seen on dialysis treatment. Has no nausea, no vomiting, no shortness of breath. OBJECTIVE: VITAL SIGNS: Vital signs are much better now. Blood pressure is in the 130s to 150s/50s, pulse 69, afebrile, and 16 respirations. LUNGS: Clear to auscultation bilaterally. CARDIOVASCULAR: S1, S2. No rub. ABDOMEN: Soft. Positive bowel sounds. Nontender. EXTREMITIES: No evidence of edema. LABORATORY WORKUP: Hemoglobin 9, hematocrit 27.6. Sodium 135, potassium 4.4, chloride 98, bicarb 19, BUN is 47, and creatinine 7.71. IMPRESSION AND PLAN: 1. End-stage renal disease. Continue dialysis on Wednesday, , and Wednesday. 2. Hypertension, stable. 3. Anemia, chronic, stable. 4. Hyperphosphatemia, on phosphorus binders. Phosphorus level is much better. Gerhard Kearns MD /MODL /[id number]
[2020-06-25] MEDS ORDERED: POLYETHYLENE GLYCOL 3350 17 GM PACK PO PRN (12:00)
[2020-06-25] MEDS ORDERED: CHOLESTYRAMINE 4 GM PACKET PO PRN (12:00)
[2020-06-25] MEDS: EPOETIN ALFA-EPBX 10,000 UNIT/ML VIAL SC SCH (12:20)
--- NOTE | 2020-06-25 13:30 | NUR ---
DIALYSIS COMPLETED. 3.5 L REMOVED PER HYDRAULIC MINER.
[2020-06-25] MEDS: FOLIC ACID MDV 1 MG in SODIUM CHLORIDE 0.9% 50ML 50 ML IV SCH (13:47)
[2020-06-25] MEDS: FERROUS SULFATE 325 MG TAB PO SCH ×3 (13:58→21:20)
[2020-06-25] MEDS: TIZANIDINE HCL 4 MG TAB PO SCH ×3 (13:59→21:21)
[2020-06-25] MEDS: SERTRALINE HCL 50 MG TAB PO SCH (13:59)
--- NOTE | 2020-06-25 19:10 | NUR ---
BEDSIDE SHIFT REPORT GIVEN TO THE POWER BALLAST MACHINE OPERATOR RN. PT DENIED FURTHER NEEDS.
--- NOTE | 2020-06-25 21:20 | NUR ---
Pt lying in bed resting quietly. Alert, awake, and oriented x 3. Scheduled medications given. Pt refuses sliding scale Humalog insulin at this time. No other needs at this time. Call light within reach. Will continue to monitor pt.
[2020-06-25] MEDS: INSULIN GLARGINE 100 UNITS/ML VIAL SQ SCH (21:21)
[2020-06-26] MEDS: LEVOTHYROXINE SODIUM 75 MCG TAB PO SCH (00:37)
[2020-06-26 00:51] VITALS: BP 133/65
[2020-06-26] MEDS: SODIUM CHLORIDE 0.9% 1000ML 1,000 ML IV SCH ×3 (00:52→13:30)
[2020-06-26] MEDS: HYDRALAZINE HCL 20 MG/ML VIAL IV PRN ×2 (04:58→15:25)
[2020-06-26] MEDS: ONDANSETRON HCL INJ 2MG/ML 2ML 2 MG/ML VIAL IV PRN (04:58)
[2020-06-26 04:59] VITALS: BP 196/70
--- NOTE | 2020-06-26 06:45 | NUR ---
Received shift report from night nurse. Pt is A&O x3, resting in bed, no distress noted. Pt is prepped and ready for surgery, NPO, Will continue to monitor pt on unit.
[2020-06-26] MEDS ORDERED: CLINDAMYCIN PHOS 900MG/ 50ML 50 ML IV ONE (07:00)
--- NOTE | 2020-06-26 07:19 | NUR ---
Bedside report given to dayshift RN. Pt alert, awake, and oriented. No further needs at this time. Care transferred.
[2020-06-26 07:28] LABS: BASOPHILS # (AUTO) 0.1 (0.0-0.1); BASOPHILS % 0.9 % (0.0-1.0); EOSINOPHILS # (AUTO) 0.4 (0.0-0.4); EOSINOPHILS % 4.4 % (0.0-6.0); HEMATOCRIT 29.9 % (34.2-44.1); HEMOGLOBIN 9.9 g/dL (12.0-16.0); LYMPHOCYTES # (AUTO) 1.3 (1.0-3.2); LYMPHOCYTES % 15.4 % (18.0-39.1); MEAN CORPUSCULAR HEMOGLOBIN 32.5 pg (28-32); MEAN CORPUSCULAR HGB CONC 33.1 g/dL (31-35); MONOCYTES # (AUTO) 0.6 (0.2-0.8); MONOCYTES % 6.7 % (4.4-11.3); NEUTROPHILS # (AUTO) 6.1 (2.1-6.9); NEUTROPHILS % 72.2 % (38.7-80.0); PLATELET COUNT 246 x10e3/uL (140-360); RED BLOOD COUNT 3.05 x10e6/uL (3.6-5.1); RED CELL DISTRIBUTION WIDTH 12.9 % (11.7-14.4)
[2020-06-26] MEDS: INSULIN LISPRO 100 UNIT/1 ML 3ML VIAL SQ SCH ×4 (07:30→21:00)
[2020-06-26 08:00] VITALS: BP 177/55
[2020-06-26] MEDS: CARVEDILOL 12.5 MG TAB PO SCH ×2 (08:00→16:59)
[2020-06-26] MEDS: SEVELAMER CARBONATE 800 MG TAB PO SCH ×3 (08:00→16:59)
[2020-06-26 08:01] LABS: ALBUMIN 3.5 g/dL (3.5-5.0); ALBUMIN/GLOBULIN RATIO 1.2 (0.8-2.0); ANION GAP 18.7 mmol/L (8-16); CREATININE, SERUM 4.94 mg/dL (0.57-1.11); POTASSIUM 3.7 mmol/L (3.5-5.1)
[2020-06-26] MEDS: FERROUS SULFATE 325 MG TAB PO SCH ×3 (08:48→21:19)
[2020-06-26] MEDS: DOCUSATE SODIUM 100 MG CAP PO SCH ×3 (08:48→21:00)
[2020-06-26] MEDS: TIZANIDINE HCL 4 MG TAB PO SCH ×3 (08:48→21:19)
[2020-06-26] MEDS: HYDRALAZINE HCL 25 MG TAB PO SCH ×3 (08:49→21:19)
[2020-06-26] MEDS: FAMOTIDINE 20 MG/2 ML VIAL IV SCH ×2 (08:51→16:59)
[2020-06-26] MEDS: PANTOPRAZOLE 40 MG 10ML VIAL IV SCH ×2 (08:51→21:18)
[2020-06-26] MEDS: SERTRALINE HCL 50 MG TAB PO SCH (09:00)
[2020-06-26] MEDS: FOLIC ACID MDV 1 MG in SODIUM CHLORIDE 0.9% 50ML 50 ML IV SCH (09:29)
--- NOTE | 2020-06-26 10:10 | NUR ---
Pt left for surgery. Consent and pre surgery checklist is signed and on chart.
[2020-06-26] MEDS ORDERED: BUPIVACAINE HCL 0.5% INJ 30 ML VIAL INJ ONE (11:54)
--- NOTE | 2020-06-26 13:42 | NUR ---
Pt will be transferred to surgical unit. Report given to nurse.
[2020-06-26] MEDS: ALBUTEROL/IPRATROPIUM 3 ML NEB NEB PRN (13:50)
--- NOTE | 2020-06-26 14:00 | NUR ---
Pt belongings were brought to room 110.
--- NOTE | 2020-06-26 14:00 | NUR ---
Received patient from PACU. Patient is transferred from [facility] room 291. Right ankle post ORIF with baljeet bandage.
[2020-06-26] MEDS: HYDROCODONE/APAP 5MG-325MG TAB PO PRN ×2 (14:43→21:38)
[2020-06-26 16:18] VITALS: BP 164/61
[2020-06-26] MEDS: CLINDAMYCIN PHOS 900MG/ 50ML 50 ML IV SCH (16:58)
--- NOTE | 2020-06-26 19:30 | NUR ---
BEDSIDE SHIFT REPORT RECEIVED FROM DAY RN. PT S/P RT ORIF OF ANKLE. PT HAS HX DIAYSIS- AV FISTULA LEFT ARM BRUITT AND THRILL PRESENT. PT RECEIVED DIALYSIS ,, AND WEDNESDAY.CMS TO RT FOOT WNL. DALIA WRAP INTACT RT LEG.PT INCONTINENT OF STOOL X1. PERICARE GIVEN ORDERED. SKIN CARE CREAM TO BOTTOM.PT DENIES PAIN.CALL LIGHT WITHIN REACH. BED IN LOW POSITION.
[2020-06-26 20:00] VITALS: BP_SYST 163; BP_SYST 164; BP_DIAS 61; BP_DIAS 68
[2020-06-26] MEDS ORDERED: ONDANSETRON HCL INJ 2MG/ML 2ML 2 MG/ML VIAL ONE (20:19)
[2020-06-26] MEDS ORDERED: PROPOFOL IV EMULSION 10 MG/ML 20 ML VIAL ONE (20:19)
[2020-06-26] MEDS ORDERED: PHENYLEPHRINE HCL 1% 10 MG/ML VIAL ONE (20:19)
[2020-06-26] MEDS ORDERED: DEXAMETHASONE SOD PHOS INJ 4 MG/ML VIAL ONE (20:19)
[2020-06-26] MEDS ORDERED: SEVOFLURANE INHAL SOLN 250 ML PEN BTL ONE (20:19)
[2020-06-26] MEDS ORDERED: EPHEDRINE SULFATE INJ 50 MG/ML VIAL ONE (20:19)
[2020-06-26] MEDS ORDERED: LIDOCAINE HCL 2% LOCAL INJ 5 ML SDV VIAL INJ ONE (20:19)
[2020-06-26] MEDS ORDERED: MIDAZOLAM HCL 2 MG/2 ML VIAL ONE (21:41)
[2020-06-26] MEDS ORDERED: FENTANYL CITRATE/PF 100MCG/2 ML INJ ONE (21:41)
[2020-06-26] MEDS: INSULIN GLARGINE 100 UNITS/ML VIAL SQ SCH (22:49)
[2020-06-26] MEDS ORDERED: INSULIN LISPRO 100 UNIT/1 ML 3ML VIAL SQ SCH (23:30)
--- NOTE | 2020-06-26 23:35 | NUR ---
CALLED AGUSTÍN QUINONEZ BUS MECHANIC WITH BLOOD SUGA. NEW ORDERS RECEIVED FOR lISPRO 30 UNITS SQ NOW. mED GIVEN ORDERED.PILAR ESTRADA WITNESSED INSULIN PRIOR TO ADMINISTRATION.WILL MONITOR BLOOD SUGAR.
[2020-06-27] VITALS (8 sets, daily range): BP systolic 114–173; BP diastolic 59–73
[2020-06-27] MEDS: SODIUM CHLORIDE 0.9% 1000ML 1,000 ML IV SCH ×2 (01:24→16:20)
[2020-06-27] MEDS: HYDROCODONE/APAP 5MG-325MG TAB PO PRN ×6 (02:04→23:06)
[2020-06-27 05:36] LABS: BASOPHILS # (AUTO) 0.1 (0.0-0.1); BASOPHILS % 0.8 % (0.0-1.0); EOSINOPHILS % 0.3 % (0.0-6.0); HEMATOCRIT 25.7 % (34.2-44.1); HEMOGLOBIN 8.5 g/dL (12.0-16.0); LYMPHOCYTES # (AUTO) 1.3 (1.0-3.2); MEAN CORPUSCULAR HEMOGLOBIN 33.5 pg (28-32); MEAN CORPUSCULAR HGB CONC 33.1 g/dL (31-35); MEAN CORPUSCULAR VOLUME 101.2 fL (81-99); MONOCYTES % 10.4 % (4.4-11.3); NEUTROPHILS # (AUTO) 6.8 (2.1-6.9); PLATELET COUNT 181 x10e3/uL (140-360); RED BLOOD COUNT 2.54 x10e6/uL (3.6-5.1)
[2020-06-27 06:02] LABS: ANION GAP 21.1 mmol/L (8-16); CALCIUM 8.7 mg/dL (8.4-10.2); CREATININE, SERUM 6.43 mg/dL (0.57-1.11); MAGNESIUM 2.3 MG/DL (1.3-2.1); POTASSIUM 4.1 mmol/L (3.5-5.1)
[2020-06-27] MEDS: LEVOTHYROXINE SODIUM 75 MCG TAB PO SCH (06:21)
[2020-06-27] MEDS: INSULIN LISPRO 100 UNIT/1 ML 3ML VIAL SQ SCH ×4 (07:30→21:00)
[2020-06-27] MEDS: SEVELAMER CARBONATE 800 MG TAB PO SCH ×4 (08:00→16:28)
[2020-06-27] MEDS: CLINDAMYCIN PHOS 900MG/ 50ML 50 ML IV SCH ×3 (08:00→15:59)
[2020-06-27] MEDS: CARVEDILOL 12.5 MG TAB PO SCH ×2 (08:00→16:20)
[2020-06-27] MEDS ORDERED: SODIUM CHLORIDE 0.9% 250ML 500 ML IV PRN (08:30)
[2020-06-27] MEDS ORDERED: MANNITOL 25% 12.5GM/50 ML VIAL IV PRN (08:30)
[2020-06-27] MEDS ORDERED: SODIUM CHLORIDE 0.9% 1000ML 2,000 ML IV PRN (08:30)
[2020-06-27] MEDS ORDERED: ALBUMIN 25% 12.5GM 0.25 GM/ML BTL IV PRN (08:30)
[2020-06-27] MEDS: PANTOPRAZOLE 40 MG 10ML VIAL IV SCH ×3 (08:33→21:00)
[2020-06-27] MEDS: HYDRALAZINE HCL 25 MG TAB PO SCH ×3 (08:33→21:45)
[2020-06-27] MEDS: FAMOTIDINE 20 MG/2 ML VIAL IV SCH ×3 (08:33→16:28)
[2020-06-27] MEDS: SERTRALINE HCL 50 MG TAB PO SCH ×2 (08:34→09:00)
[2020-06-27] MEDS: DOCUSATE SODIUM 100 MG CAP PO SCH ×4 (08:34→21:00)
[2020-06-27] MEDS: TIZANIDINE HCL 4 MG TAB PO SCH ×4 (08:34→21:30)
[2020-06-27] MEDS: FERROUS SULFATE 325 MG TAB PO SCH ×4 (08:34→21:45)
--- NOTE | 2020-06-27 08:49 | NUR ---
updated clinical faxed to [facility]
--- NOTE | 2020-06-27 09:37 | Progress Note ---
DATE: 06/26/2020 Renal Progress Note SUBJECTIVE: Followed for end-stage renal disease, dialysis being done Wednesday, , Wednesday, tolerating well without problems. No nausea, no vomiting, no shortness of breath. OBJECTIVE: VITAL SIGNS: As noted. Blood pressure is elevated today, however, has not had with medications. The patient blood pressure is controlled into the 130s to 150s over 50s, pulse is afebrile. LUNGS: Clear to auscultation bilaterally. CARDIOVASCULAR: S1, S2. No gallop, rub or murmur. ABDOMEN: Soft, positive bowel sounds. Nontender. EXTREMITIES: No lower extremity edema. No clubbing, no cyanosis. LABORATORY DATA: Today, potassium 3.7, BUN , creatinine 4.9. IMPRESSION AND PLAN: 1. End-stage renal disease. Continue dialysis Wednesday, , Wednesday. 2. Hypertension, blood pressure is stable. 3. Anemia of chronic disease, stable. 4. We will continue to monitor closely and do dialysis per schedule. Gerhard Kearns MD /MODL /[id number]
[2020-06-27] MEDS: EPOETIN ALFA-EPBX 10,000 UNIT/ML VIAL SC SCH (12:34)
[2020-06-27] MEDS: FOLIC ACID MDV 1 MG in SODIUM CHLORIDE 0.9% 50ML 50 ML IV SCH (12:34)
--- NOTE | 2020-06-27 13:36 | Progress Note ---
DATE: 06/27/2020 Renal Progress Note SUBJECTIVE: Followed for end-stage renal disease, tolerating dialysis Wednesday, , and Wednesday, seen on dialysis treatment. No nausea, no vomiting, no shortness of breath. OBJECTIVE: VITAL SIGNS: Blood pressures have been within range and stable on dialysis. Other vital signs . LUNGS: Clear to auscultation bilaterally. CARDIOVASCULAR: S1, S2. No rub. ABDOMEN: Soft, nontender. EXTREMITIES: No edema. LABORATORY DATA: Labs have been reviewed. IMPRESSION AND PLAN: 1. End-stage renal disease. Continue dialysis Wednesday, , and Wednesday. 2. Hypertension. Blood pressure is better controlled after adjusting blood pressure medicines. 3. Anemia of chronic disease, stable. 4. Fluid overload. We will ultrafilter with dialysis . Gerhard Kearns MD TH/MODL /[id number]
[2020-06-27] MEDS: ONDANSETRON HCL INJ 2MG/ML 2ML 2 MG/ML VIAL IV PRN (13:49)
--- NOTE | 2020-06-27 16:10 | NUR ---
Per Angela, may get bed later today. If they do, she will call MOT to nurses station. MOT initiated and placed with pt's packet at nurses station. SEAN Rivers was informed.
--- NOTE | 2020-06-27 17:15 | NUR ---
Nutrition Intervention Note RD Recommendation(s) for Physician: - Recommend renal/ADA diet - Encourage PO intake Plan of Care: RD following, monitoring for tolerance and adequacy Nutrition reason for involvement: follow up RD Assessment: 06/27: Follow up. Pt had right ankle surgery yesterday. Pt reports she is still eating <50% of meals and did not want a nutrition supplement at this time. Encourage PO intake. Will continue to monitor. 06/24: Follow up. Chart reviewed. Pt is awaiting to have orthopedic surgery. Pt reports she is eating <50% of meals and does not want a nutrition supplement drink. Pt provided RD with meal preferences. Will continue to monitor. 06/20: Follow up and RD received consult for renal diet education. Chart reviewed. Pt reports her meal intake is varied and pt is ordered Nepro BID. RD provided pt with renal diet education materials and all questions were answered. Obtain pts meal preferences. Will continue to monitor. 06/18: 54 YOF admitted for missed HD tx admitted for dialysis needs and hyperkalemia. Pt seen today for ESRD dx on admit. Noted poor intake, currently 25-50% of meals. Pt reports poor intake per food preferences and diet restrictions. Pt food preferences obtain and pt receptive to Nepro, requests to only receive BID- RD to order. Pt denies GI distress today, several BMs yesterday noted. Pt reports UBW of 94kg dry weight, no wt loss noted. All questions and concerns addressed at time of visit. Chart reviewed. Will continue to monitor. Principal Problems/Diagnoses: ESRD, hyperkalemia, volume overload PMH: ESRD on HD, HTN, DM, HLD, orthostatic hypotension, bariatric surgery GI: soft, nontender abdomen, last recorded BM 06/26 Skin: bilateral gluteal redness Labs: 06/27: Na 134, K 4.1, BUN 36, Cr 6.43, Glu 146, Phos 5.0, Mg 2.3 06/24: Na 139, K 4.1, BUN 35, Cr 6.38, Glu 138, Ca 8.9 06/20: Na 135, K 4.6, BUN 29, Cr 6.45, Glu 122, Phos 5.9, mg 2.8 06/18: Na 136, K 4.4, BUN 42, Cr 7.33, Gluc 126, Phos 6.6, Mg 3.3, POC Gluc 81-145 Meds: zofran, folic acid, renvela, insulin, levothyroxine, insulin, antibiotic, protonix, ferrous sulfate, colace, pepcid, mannitol, miralax. Ht: 64 in Wt: 177 lbs (06/20) 224.06 lb (06/18) - Suspect possible weight error or fluid changes BMI: 30.4 kg/m2 IBW: 120 lb Malnutrition Evaluation (06/18/20) The patient does not meet criteria for a specified degree of malnutrition at this time. Will re-evaluate at follow-up as appropriate. Energy intake: <75% of estimated energy requirements for >7 days Weight loss: no reported wt loss, UBW 94 kg Fat loss: none, ample skinfold thickness to arm, bulging eye pads Muscle loss: none, shoulder round Supporting Evidence: Fluid accumulation: none, fluid shifts related to HD Functional Status: not assessed Nutrition Prescription (Diet Order): 1400 ADA Estimated Nutritional Needs: 0708-2507 calories/day (22-25 kcal/kg IBW) 82-109 g protein/day (1.5-2 g pro/kg IBW) Diet Adequacy: Not meeting calorie needs, Not meeting protein needs Diet Tolerance: tolerating po Diet Education Needs Assessment: (06/20) RD consulted for renal diet education. RD provided pt with renal diet education materials. Pt was mainly concerned about foods with potassium which RD explained. All questions about the diet were answered and RD provided pt with dietitian office number if she has further questions. Nutrition Care Level: Moderate Nutrition Diagnosis: Inadequate energy and protein intake related to current medical condition as evidenced by not meeting needs. Goal: Patient will meet 75-100% of estimated needs by follow up Progress: goal not met Interventions: -Carbohydrate and Mineral modified diet Monitoring/Evaluation: -Total energy intake, Total protein intake, Modified diet, Weight change Signed: Tricia Cardona RD, LD
--- NOTE | 2020-06-27 19:30 | NUR ---
BEDSIDE SHIFT REPORT RECEIVED FROM DAY SHIFT RN. PT IS ALERT AND ORIENTED X3. RESPIRATIONS ARE EVEN AND UNLABORED. TELE ON. RT ANKLE - DALIA WRAP ON AND RT LEG ELEVATED ON PILLOW. CMS TO RT ANKLE WNL. 20 G SL IN RT FOREARM. PT DENIES PAIN. PT DIALYSIS ON DAY SHIFT. AV FISTULA IN LEFT ARM. CALL LIGHT WITHIN REACH. BED IN LOW POSITION.
[2020-06-27] MEDS: INSULIN GLARGINE 100 UNITS/ML VIAL SQ SCH (21:45)
--- NOTE | 2020-06-27 23:06 | NUR ---
PT GIVEN NORCO FOR PAIN AT 2201. PT CRYING IN ROOM. PT VERBALIZED CONCERNED ABOUT TRANSFERING TO [facility] IN AM AND BEING ABLE TO GET PAIN MEDS THERE. FIRST NORCO NOT DECREASE PAIN ENOUGH SO NORCO REPEATED PER ORDER. PAIN RELIEF OBTAINED. WILL NOTIFY PHYSICIAN NEEDED IF PAIN NOT CONTROLLED.
[2020-06-28] VITALS (7 sets, daily range): BP systolic 96–178; BP diastolic 51–64
[2020-06-28] MEDS: SODIUM CHLORIDE 0.9% 1000ML 1,000 ML IV SCH (04:12)
[2020-06-28] MEDS: HYDROCODONE/APAP 5MG-325MG TAB PO PRN ×2 (04:34→09:32)
[2020-06-28] MEDS: LEVOTHYROXINE SODIUM 75 MCG TAB PO SCH (05:45)
[2020-06-28 06:12] LABS: BASOPHILS # (AUTO) 0.1 (0.0-0.1); BASOPHILS % 0.7 % (0.0-1.0); EOSINOPHILS # (AUTO) 0.3 (0.0-0.4); EOSINOPHILS % 4.3 % (0.0-6.0); HEMATOCRIT 28.1 % (34.2-44.1); LYMPHOCYTES # (AUTO) 1.3 (1.0-3.2); LYMPHOCYTES % 17.5 % (18.0-39.1); MONOCYTES # (AUTO) 0.6 (0.2-0.8); MONOCYTES % 8.1 % (4.4-11.3); NEUTROPHILS % 68.8 % (38.7-80.0); PLATELET COUNT 204 x10e3/uL (140-360); RED BLOOD COUNT 2.81 x10e6/uL (3.6-5.1); RED CELL DISTRIBUTION WIDTH 12.8 % (11.7-14.4)
[2020-06-28 06:35] LABS: ALBUMIN 3.5 g/dL (3.5-5.0); ALBUMIN/GLOBULIN RATIO 1.3 (0.8-2.0); ANION GAP 18.1 mmol/L (8-16); CALCIUM 8.9 mg/dL (8.4-10.2); CREATININE, SERUM 4.43 mg/dL (0.57-1.11); POTASSIUM 4.1 mmol/L (3.5-5.1)
[2020-06-28] MEDS: CLINDAMYCIN PHOS 900MG/ 50ML 50 ML IV SCH ×2 (09:37)
[2020-06-28] MEDS: SERTRALINE HCL 50 MG TAB PO SCH (09:37)
[2020-06-28] MEDS: TIZANIDINE HCL 4 MG TAB PO SCH ×3 (09:38→19:59)
[2020-06-28] MEDS: CARVEDILOL 12.5 MG TAB PO SCH ×2 (09:39→18:21)
[2020-06-28] MEDS: INSULIN LISPRO 100 UNIT/1 ML 3ML VIAL SQ SCH ×4 (09:40→20:14)
[2020-06-28] MEDS: SEVELAMER CARBONATE 800 MG TAB PO SCH ×3 (09:40→18:20)
--- NOTE | 2020-06-28 09:40 | Progress Note ---
DATE: 06/28/2020 Renal Progress Note SUBJECTIVE: Followed for end-stage renal disease, dialysis Wednesday, , and Wednesday. No nausea. No vomiting. No shortness of breath. Had dialysis yesterday without any problems. OBJECTIVE: VITAL SIGNS: Noted. Blood pressure 147/63, afebrile, 78 pulse. LUNGS: Clear to auscultation bilaterally. CARDIOVASCULAR: S1 and S2. No rub. ABDOMEN: Soft and nontender. EXTREMITIES: No edema. LABORATORY DATA: Potassium 4.1 and creatinine 4.4. IMPRESSION AND PLAN: 1. End-stage renal disease. Continue dialysis Wednesday, , and Wednesday. The patient will likely be transferred to [facility] after surgery on her right foot. 2. Hypertension, controlled blood pressure. 3. Anemia of chronic disease, stable. MD OSWALDO Escamilla/LIZA /[id number]
[2020-06-28] MEDS: FERROUS SULFATE 325 MG TAB PO SCH ×3 (09:41→19:59)
[2020-06-28] MEDS: HYDRALAZINE HCL 25 MG TAB PO SCH ×3 (09:41→19:59)
[2020-06-28] MEDS: DOCUSATE SODIUM 100 MG CAP PO SCH ×3 (09:41→19:59)
[2020-06-28] MEDS: FAMOTIDINE 20 MG/2 ML VIAL IV SCH ×2 (09:41→18:21)
[2020-06-28] MEDS: PANTOPRAZOLE 40 MG 10ML VIAL IV SCH (09:41)
[2020-06-28] MEDS: ALBUTEROL/IPRATROPIUM 3 ML NEB NEB PRN (10:02)
[2020-06-28] MEDS ORDERED: LORAZEPAM 0.5 MG TAB PO PRN (10:30)
[2020-06-28] MEDS ORDERED: HYDROCODONE/APAP 10MG-325MG TAB PO PRN (11:00)
--- NOTE | 2020-06-28 12:00 | Consultation ---
DATE OF CONSULTATION: Psychiatric Initial Consult REASON FOR CONSULTATION: For treatment and evaluation of patient depression and anxiety. HISTORY OF PRESENT ILLNESS: The patient is a 54-year-old female, who was admitted to [facility] due to multiple medical problems, psychiatric consult was called to evaluate the patient's depression and anxiety during her inpatient stay. Upon evaluation today, the patient is found to be lying on her bed. She is alert, awake, oriented x3. She said that she had been feeling increasingly depress and anxious because of her chronic pain and because of her medical health issues. The patient sometimes feels hopeless and helpless. She is not able to sleep and eat very well. She has passive wishes, but no suicidal ideations. She denies any hallucinations at this time. She wants her medications to be adjusted. PAST PSYCHIATRIC HISTORY: The patient said that she has been treated for depression and anxiety in the past. She is attempted suicide at least once in the past. She denies drinking alcohol and she denies any abuse of drugs. FAMILY HISTORY: The patient denies any family history of psychiatric illness. SOCIAL HISTORY: The patient states that she lives with her and her son. CURRENT LABORATORIES: WBC 7.26, hemoglobin 9, hematocrit 28.1, and platelets 204. Sodium 138, potassium 4.1, chloride 100, BUN 20, and creatinine 4.43. CURRENT MEDICATIONS: 1. Zofran as needed. 2. Tizanidine. 3. Zoloft 50 mg p.o. daily. 4. Protonix. 5. P.r.n. Jarratt. MENTAL STATUS EXAMINATION: The patient is a middle age female who is currently lying on her bed. She is calm and cooperative. Her mood is depress and anxious with blunted affect. She denies any suicidal or homicidal ideation at present. She denies any abnormal perception at present. No delusions are elicited. Her thought process is goal directed. Her insight and judgement are fair. DIAGNOSIS: AXIS I: Major depressive disorder, recurrent, moderate. PLAN OF CARE: 1. Discontinue Zoloft. 2. Add Effexor 75 mg p.o. daily. 3. Add Ativan 0.5 mg p.o. q.6h p.r.n. for anxiety. 4. Supportive therapy during her inpatient stay. 5. We will continue to follow this patient during her inpatient stay from management of her psychiatric symptoms. Thank you very much for this consult. MD MIKAELA Adams/LIZA /[id number]
[2020-06-28] MEDS: MORPHINE SULFATE 2 MG/ML SYR 1ML IV PRN ×2 (12:07→20:00)
[2020-06-28] MEDS: FOLIC ACID MDV 1 MG in SODIUM CHLORIDE 0.9% 50ML 50 ML IV SCH (13:44)
--- NOTE | 2020-06-28 15:44 | NUR ---
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 SEAN Shane and adriana Ruiz RN informed of MOT
--- NOTE | 2020-06-28 18:22 | NUR ---
CALLED [phone]. GAVE REPORT TO ISAMAR ESTRADA FOR PATIENT TO GO TO ROOM 605 AFTER 1900.
--- NOTE | 2020-06-28 19:20 | NUR ---
Received pt in bed a/o, bed in low and locked position, call hernandez and personal items within reach. Pt anticipating discharge/transfer to [facility]. Bedside report completed. Pt c/o discomfort at this time will med per DEC.
--- NOTE | 2020-06-28 19:27 | Discharge Summary ---
ADMISSION DIAGNOSES: End-stage renal disease with missed dialysis and fluid overload; hyperkalemia due to end-stage renal disease with missed dialysis; right ankle fracture, status post fall on June 07, 2020, at home; hypotension with history of hypertension; type 2 diabetes with hyperglycemia; stage II sacral decubitus, present on admission, likely due to genital herpes; asthma; depression; hyperlipidemia; bilateral conjunctivitis; obesity with a BMI of 39.13; fecal impaction with external hemorrhoids. DISCHARGE DIAGNOSES: End-stage renal disease with missed dialysis and fluid overload; hyperkalemia due to end-stage renal disease with missed dialysis; right ankle fracture, status post fall on June 07, 2020, at home; hypotension with history of hypertension; type 2 diabetes with hyperglycemia; stage II sacral decubitus, present on admission, likely due to genital herpes; asthma; depression; hyperlipidemia; bilateral conjunctivitis; obesity with a BMI of 39.13; fecal impaction with external hemorrhoids; moderate left pleural effusion, status post left thoracentesis; rule out bilateral lower extremity deep venous thrombosis, no peripheral arterial disease, no urinary tract infection; rule out coronavirus. HISTORY: End-stage renal disease, hypertension, diabetes, asthma, hyperlipidemia, orthostatic hypotension. PAST SURGICAL HISTORY: Partial hysterectomy, bariatric surgery, left arm fistula, tummy tuck, reconstructive left hand surgery. FAMILY HISTORY: Unknown as the patient is adopted. SOCIAL HISTORY: Noncontributory. HOSPITAL COURSE: A 54-year-old female admitted from [facility] via ambulance. She states that she missed her usual dialysis on , so on Wednesday, she had a fecal impaction, which was not resolved by Wednesday, so she came to the ER at that time, missing dialysis again. She reports a fall on 06/07/2020, at home and says she hurt her right ankle. She was seen at [facility] and was to have surgery with Dr. Peterson. So on admission, Dr. Peterson was consulted. Per Dr. Peterson, the patient was supposed to be nonweightbearing on the right leg for 2 months after surgery. On admission, multiple medications were added to help the patient have a bowel movement, which worked. Her BNP was 100.7. Chest x-ray showed a moderate left pleural effusion. Right ankle x-ray showed mildly displaced lateral malleolar fracture. Due to the presumed stage II decubitus ulcer, Wound Care was consulted, but after speaking with the patient, it appears to be an outbreak of genital herpes. She was started on Valtrex for 1 week and Mepilex was applied. Cardiology was consulted for clearance for the ankle surgery. CT of the chest on 06/18, showed moderate left pleural effusion. No evidence of loculation. The patient had an ultrasound-guided thoracentesis on 06/19 with 1100 mL of gerson yellow fluid pulled. The echo showed an EF of around 64%. Bilateral lower extremity arterial Doppler was negative. Urine culture negative. Coronavirus negative. The patient was cleared for surgery. Stool for blood was also negative. The patient was taken for a right ankle ORIF with Dr. Peterson on 06/26/2020. The patient tolerated the procedure well. She was advised to be nonweightbearing once again, but will discharge to [facility] for continued PT. She will follow up with primary care and Dr. Peterson in 1 to 2 weeks. The patient understands discharge instructions and agrees to plan. Vital signs stable, the patient is afebrile. Dictated by Lor Lewis NP MD GABY Jacques/MODL /[id number]
[2020-06-28] MEDS: ONDANSETRON HCL INJ 2MG/ML 2ML 2 MG/ML VIAL IV PRN (20:00)
[2020-06-28] MEDS: INSULIN GLARGINE 100 UNITS/ML VIAL SQ SCH (20:15)
--- NOTE | 2020-06-28 20:15 | NUR ---
Ambulance personnel present with stretcher to transfer pt, All night meds administered. All belongings with pt. No s/sx of acute distress noted
[2020-06-28] MEDS ORDERED: MELATONIN 5 MG TABLET PO PRN (21:00)
[2020-06-29] MEDS ORDERED: PANTOPRAZOLE SOD 40 MG TABEC PO SCH (07:30)
[2020-06-29] MEDS ORDERED: VENLAFAXINE HCL 75 MG CAPCR PO SCH (09:00)
--- NOTE | 2020-07-04 03:53 | Operative Report ---
DATE OF PROCEDURE: 06/26/2020 SURGEON: Saurabh Peterson MD PREOPERATIVE DIAGNOSIS: Chronic right bimalleolar equivalent ankle fracture. POSTOPERATIVE DIAGNOSIS: Chronic right bimalleolar equivalent ankle fracture. OPERATIONS AND PROCEDURES PERFORMED: The patient underwent a takedown of an impending nonunion of a right fibular fracture, a closed reduction of a right ankle mortise and open reduction and internal fixation of a right fibular fracture, and allograft bone grafting of the right fibula. FILM REPLACEMENT ORDERER: There was no academic assistant. ANESTHESIA: General endotracheal intubation anesthesia. IV FLUIDS: Per the anesthesia record. BLOOD LOSS: Minimal. COMPLICATIONS: None. BRIEF DESCRIPTION OF THE PATIENT'S OPERATIVE PROCEDURE: Ms. Mcintyre was taken to the operating room and placed in supine position on the operating table. Following induction of general anesthesia as well as endotracheal intubation, the patient's right lower extremity was examined under anesthesia. She was found to have mild swelling about the right ankle joint. Fluoroscopic evaluation of the ankle joint demonstrated a bimalleolar equivalent ankle fracture with disruption of the patient's ankle mortise. The patient's lower extremity was prepped and draped in standard surgical fashion. The case was begun by creating incision over the fibula laterally. This incision was carried through the skin only. Blunt dissection was used to deepen the incision to the level of the patient's fracture site. The superficial peroneal nerve was identified and protected throughout the remainder of the case. 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 Fibrous material was removed from the fracture site both proximally and distally. The ankle mortise was then reduced. A K-wire was used to open the medullary canal of the fibula both proximally and distally. A plate was then chosen and contoured to the lateral aspect of the fibula. The plate was then affixed to the fibula and providing compression across the patient's fracture site. This plate was affixed to the bone with combinations of cortical and locking screws. The wound was copiously irrigated. The fibular fracture site was then bone grafted with allograft bone graft. Fluoroscopic evaluation of the patient's ankle demonstrated reduction of the patient's ankle mortise and re-establishment of the length and alignment of the fibula. The wound was then closed in a multilayer fashion. Sterile dressings were applied and the patient was placed in a multi-sided well-padded splint, awakened, and taken to the postanesthesia care unit in stable condition. MD BRINA Hood/LIZA /[id number]
== END 2020-06-28 20:25 | DRG 981 ==
LOC: ER 13:54 → ERHOLD 16:25 → MED/SURG3 17:51 → OBSVTOIN 06-16 10:08 → MED/SURG3 06-20 21:47 → MED/SURG 06-26 14:00
PROVIDERS: ADMIT Internal Medicine; ATTEND Internal Medicine
PROC: 5A1D70Z Performance of Urinary Filtration, Intermittent, Less than 6 Hours Per Day (ICD-10-PCS; 2020-06-15)
PROC: 0W9B3ZZ Drainage of Left Pleural Cavity, Percutaneous Approach (ICD-10-PCS; principal; 2020-06-16)
PROC: 0QSJ04Z Reposition Right Fibula with Internal Fixation Device, Open Approach (ICD-10-PCS; 2020-06-16)
PROC: 0QUJ0KZ Supplement Right Fibula with Nonautologous Tissue Substitute, Open Approach (ICD-10-PCS; 2020-06-16)
DX: I12.0 Hypertensive chronic kidney disease with stage 5 chronic kidney disease or end stage renal disease (principal); N18.6 End stage renal disease; F33.1 Major depressive disorder, recurrent, moderate; J90 Pleural effusion, not elsewhere classified; S82.841A Displaced bimalleolar fracture of right lower leg, initial encounter for closed fracture; L89.152 Pressure ulcer of sacral region, stage 2; E66.9 Obesity, unspecified; Z68.39 Body mass index [BMI] 39.0-39.9, adult; E87.5 Hyperkalemia; E78.5 Hyperlipidemia, unspecified; E11.65 Type 2 diabetes mellitus with hyperglycemia; W19.XXXD Unspecified fall, subsequent encounter; A60.00 Herpesviral infection of urogenital system, unspecified; K64.4 Residual hemorrhoidal skin tags; J45.20 Mild intermittent asthma, uncomplicated; D63.1 Anemia in chronic kidney disease; M77.9 Enthesopathy, unspecified; K59.00 Constipation, unspecified; E83.39 Other disorders of phosphorus metabolism; Z11.59 Encounter for screening for other viral diseases; R94.31 Abnormal electrocardiogram [ECG] [EKG]; Z74.09 Other reduced mobility
CPT/HCPCS: 32555; 36415; 71045; 71250; 74470; 76000; 80048; 80053; 80061; 81001; 82270; 82550; 82553; 82607; 82728; 82746; 82948; 83036; 83540; 83615; 83735; 83880; 84100; 84157; 84443; 84466; 84478; 84484; 85025; 85045; 85610; 85730; 86704; 86706; 87086; 87340; 89051; 90935; 90962; 93005; 93306; 93925; 93971; 94640; 96372; 97139; 99251; 99284; C1713; G0378; J0360; J0610; J1100; J1642; J1644; J1815; J1817; J2001; J2250; J2270; J2370; J2405; J3010; J3411; J3420; J7030; J7050; J7799; U0002

== ENCOUNTER 2020-07-07 13:36 | Emergency (ER) | payer MEDICARE, OTHER ==
[~2020-07-07] VITALS: Ht 162.6 cm; Wt 93.4 kg
[~2020-07-07 13:36] MED LIST: AMLODIPINE BESY10 MG PO; AURYXIA210 MG PO; CARVEDILOL12.5 MG PO; FUROSEMIDE80 MG; GABAPENTIN400 MG PO; HYDRALAZINE HCL50 MG; LEVOTHYROXINE75 MCG PO; LYRICA75 MG PO; MIDODRINE HCL5 MG PO; TIZANIDINE HCL4 M1; TYLENOL # 31 EA PO; ULTRAM 50MG50 MG PO
[2020-07-07 15:27] LABS: BASOPHILS # (AUTO) 0.1 (0.0-0.1); EOSINOPHILS # (AUTO) 0.4 (0.0-0.4); EOSINOPHILS % 4.5 % (0.0-6.0); HEMATOCRIT 33.9 % (34.2-44.1); HEMOGLOBIN 10.8 g/dL (12.0-16.0); LYMPHOCYTES # (AUTO) 1.4 (1.0-3.2); LYMPHOCYTES % 16.5 % (18.0-39.1); MEAN CORPUSCULAR HEMOGLOBIN 32.2 pg (28-32); MEAN CORPUSCULAR HGB CONC 31.9 g/dL (31-35); MEAN CORPUSCULAR VOLUME 101.2 fL (81-99); MONOCYTES # (AUTO) 0.6 (0.2-0.8); MONOCYTES % 7.3 % (4.4-11.3); NEUTROPHILS # (AUTO) 5.9 (2.1-6.9); NEUTROPHILS % 70.2 % (38.7-80.0); PLATELET COUNT 251 x10e3/uL (140-360); RED BLOOD COUNT 3.35 x10e6/uL (3.6-5.1); RED CELL DISTRIBUTION WIDTH 13.7 % (11.7-14.4)
[2020-07-07 15:29] LABS: INR 0.94; PROTHROMBIN TIME 13.1 seconds (11.9-14.5)
[2020-07-07] MEDS ORDERED: DIPHENHYDRAMINE HCL INJ 50 MG/ML VIAL ONE (15:29)
[2020-07-07] MEDS ORDERED: MORPHINE SULFATE 2 MG/ML SYR 1ML IV ONE (15:30)
[2020-07-07] MEDS ORDERED: DIPHENHYDRAMINE HCL INJ 50 MG/ML VIAL IV ONE (15:30)
[2020-07-07 15:37] LABS: ALBUMIN 4.1 g/dL (3.5-5.0); ALBUMIN/GLOBULIN RATIO 1.2 (0.8-2.0); ANION GAP 24.9 mmol/L (8-16); CALCIUM 9.5 mg/dL (8.4-10.2); CREATININE, SERUM 7.54 mg/dL (0.57-1.11); POTASSIUM 4.9 mmol/L (3.5-5.1)
[2020-07-07 15:43] LABS: CREATINE KINASE MB 2.9 ng/mL (0-5.0)
--- NOTE | 2020-07-07 16:05 | Emergency Department Note ---
History of Present Illnes History of Present Illness Chief Complaint: General Medicine Complaints History of Present Illness This is a 54 year old female PT CAME IN POV AFTER LEAVING AGAINST MEDICAL ADVICE FROM [facility], PT STATES THAT "THEY WERE TREATING ME HORRIBLY AND THEY WERE NOT GIVING ME MY REGULAR MEDICATIONS, I EVEN HAVE TO GIVE MYSELF INSULIN ON THE WAY OVER HERE, I'VE BEEN HAVING CHEST PAIN AND THEY DID NOT WANT TO TAKE ME TO THE HOSPITAL AND MY ANKLE HURTS", DR. LAKE WAS CONTACTED AND STATES TO CALL HIM IF PATIENT NEEDS TO BE ADMITTED, PT C/O CHEST PAIN, GENERALIZED PAIN AND ACHES, NEGATIVE COVID ON 06/25/20. Historian: Patient, Family Member Arrival Mode: Car Web Applications Architect Required: No Onset (how long ago): day(s) Location: RIGHT ANKLE Quality: PAIN Radiation: Reports non-radiation Severity: severe Onset quality: gradual Duration (how long): week(s) Timing of current episode: constant Progression: waxing and waning Chronicity: recurrent Context: Denies recent illness Relieving factors: none Exacerbating factors: none Associated symptoms: Reports denies other symptoms Past Medical/Family History Physician Review I have reviewed the patient's past medical and family history. Any updates have been documented here. Past Medical History Recent Fever: No Clinical Suspicion of Infectio: No New/Unexplained Change in Ment: No Past Medical History: Hypertension, Diabetes, ESRD Other Medical History: ORTHOSTATIC HTN Past Surgical History: Hysterectomy, Bariatric Surgery Other Surgery: PINS TO RIGHT FOOT BY DR. MAGUIRE 06/25/20 Social History Smoking Cessation: Never Smoker Counseling Performed: No Alcohol Use: None Any Illegal Drug Use: No TB Exposure/Symptoms: No Physically hurt or threatened: No Family History Family history of heart diseas: No Other Last Tetanus: UTD Any Pre-Existing Lines (PICC,: No Review of Systems Review of Systems Constitutional: Reports as per HPI EENTM: Reports no symptoms Cardiovascular: Reports no symptoms Respiratory: Reports no symptoms Gastrointestinal: Reports no symptoms Genitourinary: Reports no symptoms Musculoskeletal: Reports as per HPI Integumentary: Reports no symptoms Neurological: Reports no symptoms Psychological: Reports no symptoms Endocrine: Reports no symptoms Hematological/Lymphatic: Reports no symptoms Physical Exam Related Data Allergies: Coded Allergies: Penicillins (Verified Allergy, Severe, ANAPHYLAXIS, 12/11/19) coconut (Verified Allergy, Intermediate, 12/11/19) plum (Verified Allergy, Unknown, 12/11/19) glyburide (Verified Adverse Reaction, Intermediate, PALPATATIONS, 12/11/19) Triage Vital Signs Vital Signs Date Time Temp Pulse Resp B/P (MAP) Pulse Ox O2 Delivery O2 Flow Rate FiO2 07/07/20 13:40 98.9 77 18 153/70 99 Room Air Vital signs reviewed: Yes Physical Exam CONSTITUTIONAL Constitutional: Present well-developed, Present well-nourished HENT HENT: Present normocephalic, Present atraumatic, Present oropharynx clear/moist, Present nose normal HENT L/R: Present left ext ear normal, Present right ext ear normal EYES Eyes: Reports PERRL, Reports conjunctivae normal NECK Neck: Present ROM normal PULMONARY Pulmonary: Present effort normal, Present breath sounds normal; Absent rales CARDIOVASCULAR Cardiovascular: Present regular rhythm, Present heart sounds normal, Present capillary refill normal, Present normal rate GASTROINTESTINAL Abdominal: Present soft, Present nontender, Present bowel sounds normal GENITOURINARY Genitourinary: Present exam deferred SKIN Skin: Present warm, Present dry MUSCULOSKELETAL Musculoskeletal: Present ROM normal, Present other (PER DR MAGUIRE, I LOOSENED SPLINT ON RIGHT ANKLE/CUT THE SOFT ROLL AND BENT THE 3-WAY SPLINT OUT ENOUGH TO VISUALIZE SURGICAL SITE WHICH LOOKS GOOD, C&D WITHOUT ANY DISCHARGE, NO EVIDENCE OF INFECTION) NEUROLOGICAL Neurological: Present alert, Present oriented x 3, Present no gross motor or sensory deficits PSYCHOLOGICAL Psychological: Present mood/affect normal, Present judgement normal Results Laboratory Result Diagram: 07/07/20 1422 07/07/20 1422 Laboratory Laboratory Tests Test 07/07/20 14:22 White Blood Count 8.41 x10e3/uL (4.8-10.8) Red Blood Count 3.35 x10e6/uL (3.6-5.1) Hemoglobin 10.8 g/dL (12.0-16.0) Hematocrit 33.9 % (34.2-44.1) Mean Corpuscular Volume 101.2 fL (81-99) Mean Corpuscular Hemoglobin 32.2 pg (28-32) Mean Corpuscular Hemoglobin Concent 31.9 g/dL (31-35) Red Cell Distribution Width 13.7 % (11.7-14.4) Platelet Count 251 x10e3/uL (140-360) Neutrophils (%) (Auto) 70.2 % (38.7-80.0) Lymphocytes (%) (Auto) 16.5 % (18.0-39.1) Monocytes (%) (Auto) 7.3 % (4.4-11.3) Eosinophils (%) (Auto) 4.5 % (0.0-6.0) Basophils (%) (Auto) 1.0 % (0.0-1.0) Neutrophils # (Auto) 5.9 (2.1-6.9) Lymphocytes # (Auto) 1.4 (1.0-3.2) Monocytes # (Auto) 0.6 (0.2-0.8) Eosinophils # (Auto) 0.4 (0.0-0.4) Basophils # (Auto) 0.1 (0.0-0.1) Absolute Immature Granulocyte (auto 0.04 x10e3/uL (0-0.1) Prothrombin Time 13.1 seconds (11.9-14.5) Prothromb Time International Ratio 0.94 Activated Partial Thromboplast Time 28.0 seconds (23.8-35.5) Sodium Level 137 mmol/L (136-145) Potassium Level 4.9 mmol/L (3.5-5.1) Chloride Level 96 mmol/L (98-107) Carbon Dioxide Level 21 mmol/L (22-29) Anion Gap 24.9 mmol/L (8-16) Blood Urea Nitrogen 42 mg/dL (7-26) Creatinine 7.54 mg/dL (0.57-1.11) Estimat Glomerular Filtration Rate 6 ML/MIN (60-) BUN/Creatinine Ratio 6 (6-25) Glucose Level 243 mg/dL (74-118) Calcium Level 9.5 mg/dL (8.4-10.2) Total Bilirubin 0.6 mg/dL (0.2-1.2) Aspartate Amino Transf (AST/SGOT) 31 IU/L (5-34) Alanine Aminotransferase (ALT/SGPT) 17 IU/L (0-55) Alkaline Phosphatase 162 IU/L (40-150) Creatine Kinase 33 IU/L (29-168) Creatine Kinase MB 2.90 ng/mL (0-5.0) Troponin I 0.054 ng/mL (0-0.300) Total Protein 7.5 g/dL (6.5-8.1) Albumin 4.1 g/dL (3.5-5.0) Globulin 3.4 g/dL (2.3-3.5) Albumin/Globulin Ratio 1.2 (0.8-2.0) Lab results reviewed: Yes Imaging Imaging results reviewed: Yes Procedures 12 Lead ECG Interpretation ECG Interpretation : ECG: ECG 1 Web Applications Architect: Interpreted by ED physician Date: Jul 07, 2020 Time: 13:40 Rhythm: sinus rhythm Rate: normal BPM: 72 QRS axis: normal ST segments normal: Yes T wave inversion: aVR, aVL Clinical Impression: abnormal ECG Additional Comments POOR RWP Assessment & Plan Medical Decision Making MDM CBC, CHEM, CARDIACS, ECG, CXR - R/O VOLUME OVERLOAD, HYPERKALEMIA, STEMI/NSTEMI Reassessment Reassessment I SPOKE WITH DR LAKE AND DR MAGUIRE - THEY AGREE WITH DC HOME, DR MAGUIRE WILL SEE PT TOMORROW IN CLINIC, I WILL WRITE RX FOR KNEE WALKER SINCE PT IS STRICT NWB, PAIN MEDS (SINCE SHE LEFT AMA FROM [facility]), DR LAKE WILL DO REG SCHED HD ON Assessment & Plan Final Impression: (1) Post-op pain Depart Disposition: HOME, SELF-CARE Last Vital Signs Date Time Temp Pulse Resp B/P (MAP) Pulse Ox O2 Delivery O2 Flow Rate FiO2 07/07/20 15:52 71 13 184/76 100 Room Air 07/07/20 13:52 98.9 Home Meds Reported Medications Tramadol Hcl* (ULTRAM 50MG*) 50 Mg Tab, 50 MG PO QID PRN for MODERATE PAIN (4- 6), TAB 06/16/20 Hydralazine Hcl (HYDRALAZINE HCL) 50 Mg Tablet, TID 06/16/20 Carvedilol (CARVEDILOL) 12.5 Mg Tablet, 25 MG PO BID, #60 TAB 06/16/20 Tizanidine Hcl (TIZANIDINE HCL) 4 Mg Capsule, TID 06/16/20 Ferric Citrate (Auryxia) 210 Mg Tablet, 1 PO BID PRN for snacks 06/16/20 Ferric Citrate (Auryxia) 210 Mg Tablet, 2 PO AC 06/16/20 Gabapentin (GABAPENTIN) 400 Mg Capsule, 400 MG PO TID PRN for MODERATE PAIN (4- 6), #30 CAP 06/16/20 Acetaminophen/Codeine* (TYLENOL # 3*) 1 Ea Tab, 1 PO Q6H PRN for MODERATE PAIN (4-6) 06/16/20 Pregabalin (LYRICA) 75 Mg Cap, 75 MG PO BID, CAP 06/16/20 Amlodipine Besylate (AMLODIPINE BESYLATE) 10 Mg Tablet, 10 MG PO DAILY, #30 TAB 06/16/20 Midodrine Hcl (MIDODRINE HCL) 5 Mg Tablet, 5 MG PO UD PRN for non dialysis days, TAB 06/16/20 Levothyroxine Sodium (LEVOTHYROXINE SODIUM) 75 Mcg Tablet, 75 MCG PO DAILY, #30 TAB 06/16/20 Furosemide (FUROSEMIDE) 80 Mg Tablet, BID 06/16/20 Medications in the ED Morphine Sulfate 4 mg NOW ONCE IV Last administered on 07/07/20at 15:37; Admin Dose 4 MG; Start 07/07/20 at 15:30; Stop 07/07/20 at 15:31; Status DC Diphenhydramine HCl 50 mg NOW ONCE IV Last administered on 07/07/20at 15:37; Admin Dose 50 MG; Start 07/07/20 at 15:30; Stop 07/07/20 at 15:31; Status DC Diphenhydramine HCl 50 mg STK-MED ONCE .ROUTE ; Start 07/07/20 at 15:29; Stop 07/07/20 at 15:23; Status DC PARAM GARCIA MD Jul 07, 2020 16:05
--- NOTE | 2020-07-07 16:10 | Diagnostic Imaging Report ---
EXAMINATION: CHEST SINGLE (PORTABLE) INDICATION: ESRD COMPARISON: None FINDINGS: AP view TUBES and LINES: None. . LUNGS/PLEURA: There is improved pulmonary edema. Unchanged moderate left pleural effusion with associated atelectasis. HEART AND MEDIASTINUM: The cardiomediastinal silhouette is unremarkable. BONES AND SOFT TISSUES: No acute osseous lesion. Soft tissues are unremarkable. UPPER ABDOMEN: No free air under the diaphragm. IMPRESSION: Improved pulmonary edema. Unchanged moderate left pleural effusion with associated atelectasis. Signed by: Lazaro Thomson MD on 07/07/2020 4:07 PM
--- NOTE | 2020-07-07 16:58 | NUR ---
DR. GARCIA AT BEDSIDE. UNWRAPPED RIGHT LEG and incision looks good; no drainage, chuy intact and aligned. re-wrapped with baljeet wrap
--- NOTE | 2020-07-07 17:41 | NUR ---
call placed to pt's ; no answer
== END 2020-07-07 18:43 | disposition home or self-care (01) ==
LOC: ER 14:15
DX: G89.18 Other acute postprocedural pain (principal)
CPT/HCPCS: 36415; 71045; 80053; 82550; 82553; 84484; 85025; 85610; 85730; 93005; 99284; J1200; J2270

== ENCOUNTER 2020-07-23 05:39 | Emergency (ER) | payer MEDICARE ==
[~2020-07-23] VITALS: Ht 162.6 cm; Wt 90.7 kg
[2020-07-23 06:47] LABS: BASOPHILS # (AUTO) 0.1 (0.0-0.1); BASOPHILS % 0.6 % (0.0-1.0); EOSINOPHILS # (AUTO) 0.3 (0.0-0.4); EOSINOPHILS % 3.7 % (0.0-6.0); HEMATOCRIT 29.5 % (34.2-44.1); HEMOGLOBIN 9.7 g/dL (12.0-16.0); LYMPHOCYTES # (AUTO) 1.2 (1.0-3.2); LYMPHOCYTES % 15.7 % (18.0-39.1); MEAN CORPUSCULAR HEMOGLOBIN 33.1 pg (28-32); MEAN CORPUSCULAR HGB CONC 32.9 g/dL (31-35); MEAN CORPUSCULAR VOLUME 100.7 fL (81-99); MONOCYTES # (AUTO) 0.7 (0.2-0.8); MONOCYTES % 8.3 % (4.4-11.3); NEUTROPHILS # (AUTO) 5.6 (2.1-6.9); NEUTROPHILS % 71.4 % (38.7-80.0); PLATELET COUNT 214 x10e3/uL (140-360); RED BLOOD COUNT 2.93 x10e6/uL (3.6-5.1); RED CELL DISTRIBUTION WIDTH 12.8 % (11.7-14.4)
[2020-07-23 07:17] LABS: INR 0.92; PROTHROMBIN TIME 12.8 seconds (11.9-14.5)
[2020-07-23 07:26] LABS: ALBUMIN 3.3 g/dL (3.5-5.0); ANION GAP 18.3 mmol/L (8-16); CALCIUM 9.2 mg/dL (8.4-10.2); CREATININE, SERUM 7.31 mg/dL (0.57-1.11); POTASSIUM 4.3 mmol/L (3.5-5.1)
[2020-07-23 09:22] VITALS: BP 239/90
== END 2020-07-23 10:05 | disposition home or self-care (01) ==
LOC: ER 05:54
DX: R06.02 Shortness of breath (principal); I12.0 Hypertensive chronic kidney disease with stage 5 chronic kidney disease or end stage renal disease; E11.22 Type 2 diabetes mellitus with diabetic chronic kidney disease; N18.6 End stage renal disease; Z99.2 Dependence on renal dialysis; Z98.84 Bariatric surgery status
CPT/HCPCS: 36415; 71045; 80053; 83880; 84484; 85025; 85610; 93005; 99283

== ENCOUNTER 2020-09-26 17:07 | Inpatient (IN) | payer MEDICARE ==
[~2020-09-26] VITALS: Ht 162.6 cm; Wt 90.3 kg
[2020-09-26 19:10] LABS: BASOPHILS # (AUTO) 0.1 (0.0-0.1); BASOPHILS % 0.8 % (0.0-1.0); EOSINOPHILS # (AUTO) 0.2 (0.0-0.4); EOSINOPHILS % 2.3 % (0.0-6.0); HEMOGLOBIN 8.2 g/dL (12.0-16.0); LYMPHOCYTES # (AUTO) 0.7 (1.0-3.2); LYMPHOCYTES % 8.6 % (18.0-39.1); MEAN CORPUSCULAR HEMOGLOBIN 33.1 pg (28-32); MEAN CORPUSCULAR HGB CONC 32.8 g/dL (31-35); MEAN CORPUSCULAR VOLUME 100.8 fL (81-99); MONOCYTES # (AUTO) 0.5 (0.2-0.8); MONOCYTES % 6.3 % (4.4-11.3); NEUTROPHILS # (AUTO) 6.5 (2.1-6.9); NEUTROPHILS % 81.5 % (38.7-80.0); PLATELET COUNT 241 x10e3/uL (140-360); RED BLOOD COUNT 2.48 x10e6/uL (3.6-5.1); RED CELL DISTRIBUTION WIDTH 12.6 % (11.7-14.4)
[2020-09-26] MEDS ORDERED: PIPERACILLIN/TAZO 4.5 GM 100 ML IV STA (19:33)
[2020-09-26 19:44] LABS: ALBUMIN/GLOBULIN RATIO 0.9 (0.8-2.0); ANION GAP 14.2 mmol/L (8-16); CALCIUM 8.9 mg/dL (8.4-10.2); CREATININE, SERUM 3.92 mg/dL (0.57-1.11); POTASSIUM 3.2 mmol/L (3.5-5.1)
[2020-09-26 22:00] VITALS: BP 177/62
[2020-09-26 22:11] VITALS: BP 134/84
[2020-09-26] MEDS ORDERED: LANTUS 3ML100 UNITS/ SC (22:20)
[2020-09-26] MEDS ORDERED: TRAMADOL HCL 50 MG TAB PO PRN (22:30)
[2020-09-26] MEDS ORDERED: GABAPENTIN 400 MG CAP PO PRN (22:30)
[2020-09-26] MEDS ORDERED: FERRIC CITRATE PO PRN (22:30)
[2020-09-26] MEDS ORDERED: MIDODRINE HCL 5 MG TABLET PO PRN (22:30)
[2020-09-26] MEDS ORDERED: ACETAMINOPHEN/CODEINE 300MG - 30MG TAB PO PRN (22:30)
[2020-09-26] MEDS ORDERED: SODIUM CHLORIDE 0.9% 250ML 250 ML ONE (22:59)
[2020-09-26] MEDS: CEFEPIME 1GM/NS 0.9% 50 ML 50 ML IV SCH (23:13)
[2020-09-26] MEDS ORDERED: INSULIN GLARGINE 100 UNITS/ML VIAL SQ ONE (23:20)
[2020-09-27] VITALS (8 sets, daily range): BP systolic 122–199; BP diastolic 43–100
[2020-09-27] MEDS ORDERED: CARVEDILOL 12.5 MG TAB PO ONE (00:15)
[2020-09-27] MEDS: LEVOTHYROXINE SODIUM 75 MCG TAB PO SCH (06:00)
[2020-09-27 06:10] LABS: BASOPHILS % 0.6 % (0.0-1.0); EOSINOPHILS # (AUTO) 0.2 (0.0-0.4); HEMOGLOBIN 7.1 g/dL (12.0-16.0); LYMPHOCYTES # (AUTO) 1.1 (1.0-3.2); LYMPHOCYTES % 15.8 % (18.0-39.1); MEAN CORPUSCULAR HEMOGLOBIN 33.2 pg (28-32); MEAN CORPUSCULAR HGB CONC 32.9 g/dL (31-35); MEAN CORPUSCULAR VOLUME 100.9 fL (81-99); MONOCYTES # (AUTO) 0.5 (0.2-0.8); MONOCYTES % 7.7 % (4.4-11.3); NEUTROPHILS # (AUTO) 4.8 (2.1-6.9); NEUTROPHILS % 72.6 % (38.7-80.0); PLATELET COUNT 184 x10e3/uL (140-360); RED BLOOD COUNT 2.14 x10e6/uL (3.6-5.1); RED CELL DISTRIBUTION WIDTH 12.4 % (11.7-14.4)
[2020-09-27 06:17] LABS: HEMATOCRIT 21.6 % (34.2-44.1)
[2020-09-27 06:27] LABS: ANION GAP 11.3 mmol/L (8-16); CALCIUM 8.2 mg/dL (8.4-10.2); CREATININE, SERUM 4.7 mg/dL (0.57-1.11); POTASSIUM 3.3 mmol/L (3.5-5.1)
[2020-09-27] MEDS ORDERED: DEXTROSE 50% SYRINGE 50 ML IV PRN (08:30)
[2020-09-27] MEDS: TIZANIDINE HCL 4 MG TAB PO SCH ×3 (09:00→21:00)
[2020-09-27] MEDS: CARVEDILOL 12.5 MG TAB PO SCH ×2 (10:01→17:45)
[2020-09-27] MEDS: AMLODIPINE BESYLATE 10 MG TAB PO SCH (10:02)
[2020-09-27] MEDS: PREGABALIN 75 MG CAP PO SCH ×2 (10:02→17:41)
[2020-09-27] MEDS: INSULIN LISPRO 100 UNIT/1 ML 3ML VIAL SQ SCH ×4 (10:03→23:33)
[2020-09-27] MEDS: ALBUTEROL/IPRATROPIUM 3 ML NEB NEB SCH ×2 (13:00→19:15)
[2020-09-27] MEDS ORDERED: SODIUM CHLORIDE 0.9% 1000ML 2,000 ML ONE (13:29)
[2020-09-27] MEDS: DOXYCYCLINE HYCLATE TABLET 100 MG TAB PO SCH ×2 (13:46→21:11)
[2020-09-27] MEDS: LOPERAMIDE HCL 2 MG CAP PO PRN ×2 (13:46→21:11)
[2020-09-27] MEDS ORDERED: SODIUM CHLORIDE 0.9% 1000ML 2,000 ML IV PRN (14:00)
[2020-09-27] MEDS: BUDESONIDE/FORMOTEROL 160/4.5MCG INHALER INH SCH (19:15)
[2020-09-27] MEDS: CEFEPIME 1GM/NS 0.9% 50 ML 50 ML IV SCH (20:00)
[2020-09-27] MEDS: INSULIN GLARGINE 100 UNITS/ML VIAL SQ SCH (21:55)
[2020-09-28] VITALS (8 sets, daily range): BP systolic 121–173; BP diastolic 52–70
[2020-09-28] MEDS: ALBUTEROL/IPRATROPIUM 3 ML NEB NEB SCH ×4 (01:00→20:30)
[2020-09-28] MEDS: LEVOTHYROXINE SODIUM 75 MCG TAB PO SCH (06:24)
[2020-09-28 06:47] LABS: BASOPHILS # (AUTO) 0.1 (0.0-0.1); BASOPHILS % 0.7 % (0.0-1.0); EOSINOPHILS # (AUTO) 0.3 (0.0-0.4); EOSINOPHILS % 3.8 % (0.0-6.0); HEMATOCRIT 23.8 % (34.2-44.1); HEMOGLOBIN 7.8 g/dL (12.0-16.0); LYMPHOCYTES # (AUTO) 1.3 (1.0-3.2); LYMPHOCYTES % 16.5 % (18.0-39.1); MEAN CORPUSCULAR HEMOGLOBIN 33.3 pg (28-32); MEAN CORPUSCULAR HGB CONC 32.8 g/dL (31-35); MEAN CORPUSCULAR VOLUME 101.7 fL (81-99); MONOCYTES # (AUTO) 0.7 (0.2-0.8); MONOCYTES % 8.3 % (4.4-11.3); NEUTROPHILS # (AUTO) 5.7 (2.1-6.9); NEUTROPHILS % 70.1 % (38.7-80.0); PLATELET COUNT 210 x10e3/uL (140-360); RED BLOOD COUNT 2.34 x10e6/uL (3.6-5.1); RED CELL DISTRIBUTION WIDTH 12.4 % (11.7-14.4)
[2020-09-28 07:14] LABS: ALBUMIN 2.7 g/dL (3.5-5.0); ALBUMIN/GLOBULIN RATIO 0.9 (0.8-2.0); ANION GAP 12.4 mmol/L (8-16); CALCIUM 8.3 mg/dL (8.4-10.2); CREATININE, SERUM 5.98 mg/dL (0.57-1.11); MAGNESIUM 2.3 MG/DL (1.3-2.1); PHOSPHORUS 6.1 MG/DL (2.3-4.7); POTASSIUM 3.4 mmol/L (3.5-5.1)
[2020-09-28] MEDS: BUDESONIDE/FORMOTEROL 160/4.5MCG INHALER INH SCH ×2 (07:25→20:30)
[2020-09-28] MEDS: INSULIN LISPRO 100 UNIT/1 ML 3ML VIAL SQ SCH ×4 (07:30→20:38)
[2020-09-28] MEDS: CARVEDILOL 12.5 MG TAB PO SCH ×2 (08:08→17:13)
[2020-09-28] MEDS: TIZANIDINE HCL 4 MG TAB PO SCH ×3 (08:09→20:31)
[2020-09-28] MEDS: PREGABALIN 75 MG CAP PO SCH ×2 (08:10→16:47)
[2020-09-28] MEDS: DOXYCYCLINE HYCLATE TABLET 100 MG TAB PO SCH ×2 (08:11→20:30)
[2020-09-28] MEDS ORDERED: SODIUM CHLORIDE 0.9% 250ML 250 ML IV NR (11:30)
[2020-09-28] MEDS: AMLODIPINE BESYLATE 10 MG TAB PO SCH (17:13)
[2020-09-28] MEDS: GUAIFENESIN/DEXTROMETHORPHAN LIQD 5 ML UDC PO PRN ×2 (17:13→21:16)
[2020-09-28] MEDS: CEFEPIME 1GM/NS 0.9% 50 ML 50 ML IV SCH (20:30)
[2020-09-28] MEDS: INSULIN GLARGINE 100 UNITS/ML VIAL SQ SCH (20:38)
[2020-09-28] MEDS ORDERED: SODIUM CHLORIDE 0.9% 250ML 250 ML ONE (21:12)
[2020-09-29] VITALS (7 sets, daily range): BP systolic 106–156; BP diastolic 56–76
[2020-09-29] MEDS: ALBUTEROL/IPRATROPIUM 3 ML NEB NEB SCH ×4 (01:00→19:30)
[2020-09-29] MEDS: LEVOTHYROXINE SODIUM 75 MCG TAB PO SCH (05:30)
[2020-09-29] MEDS: BUDESONIDE/FORMOTEROL 160/4.5MCG INHALER INH SCH ×2 (07:20→19:28)
[2020-09-29] MEDS: TIZANIDINE HCL 4 MG TAB PO SCH ×3 (08:44→20:47)
[2020-09-29] MEDS: DOXYCYCLINE HYCLATE TABLET 100 MG TAB PO SCH ×2 (08:59→20:46)
[2020-09-29] MEDS: CARVEDILOL 12.5 MG TAB PO SCH ×2 (08:59→16:06)
[2020-09-29] MEDS: PREGABALIN 75 MG CAP PO SCH ×2 (08:59→16:06)
[2020-09-29] MEDS: AMLODIPINE BESYLATE 10 MG TAB PO SCH (08:59)
[2020-09-29] MEDS: INSULIN LISPRO 100 UNIT/1 ML 3ML VIAL SQ SCH ×4 (09:02→20:33)
[2020-09-29] MEDS: INSULIN GLARGINE 100 UNITS/ML VIAL SQ SCH (20:33)
[2020-09-29] MEDS: CEFEPIME 1GM/NS 0.9% 50 ML 50 ML IV SCH (20:46)
[2020-09-29] MEDS: ACYCLOVIR 200 MG CAP PO SCH (20:47)
[2020-09-30] VITALS (8 sets, daily range): BP systolic 91–155; BP diastolic 47–70
[2020-09-30] MEDS: ALBUTEROL/IPRATROPIUM 3 ML NEB NEB SCH ×4 (00:34→19:40)
[2020-09-30] MEDS: LEVOTHYROXINE SODIUM 75 MCG TAB PO SCH (04:29)
[2020-09-30 06:00] LABS: BASOPHILS # (AUTO) 0.1 (0.0-0.1); BASOPHILS % 0.9 % (0.0-1.0); EOSINOPHILS # (AUTO) 0.3 (0.0-0.4); EOSINOPHILS % 3.4 % (0.0-6.0); HEMATOCRIT 26.7 % (34.2-44.1); HEMOGLOBIN 8.7 g/dL (12.0-16.0); LYMPHOCYTES # (AUTO) 1.4 (1.0-3.2); LYMPHOCYTES % 18.3 % (18.0-39.1); MEAN CORPUSCULAR HEMOGLOBIN 32.7 pg (28-32); MEAN CORPUSCULAR HGB CONC 32.6 g/dL (31-35); MEAN CORPUSCULAR VOLUME 100.4 fL (81-99); MONOCYTES # (AUTO) 0.6 (0.2-0.8); MONOCYTES % 7.8 % (4.4-11.3); NEUTROPHILS # (AUTO) 5.4 (2.1-6.9); NEUTROPHILS % 69.2 % (38.7-80.0); PLATELET COUNT 171 x10e3/uL (140-360); RED BLOOD COUNT 2.66 x10e6/uL (3.6-5.1); RED CELL DISTRIBUTION WIDTH 13.3 % (11.7-14.4)
[2020-09-30 06:17] LABS: INR 1.01; PROTHROMBIN TIME 13.8 seconds (11.9-14.5)
[2020-09-30 06:33] LABS: ANION GAP 16.1 mmol/L (8-16); CALCIUM 8.4 mg/dL (8.4-10.2); CREATININE, SERUM 4.65 mg/dL (0.57-1.11); MAGNESIUM 2.2 MG/DL (1.3-2.1); PHOSPHORUS 5.1 MG/DL (2.3-4.7); POTASSIUM 4.1 mmol/L (3.5-5.1)
[2020-09-30] MEDS: BUDESONIDE/FORMOTEROL 160/4.5MCG INHALER INH SCH ×2 (08:10→19:40)
[2020-09-30] MEDS: SERTRALINE HCL 100 MG TAB PO SCH (09:17)
[2020-09-30] MEDS: TIZANIDINE HCL 4 MG TAB PO SCH ×3 (09:17→21:12)
[2020-09-30] MEDS: CARVEDILOL 12.5 MG TAB PO SCH ×2 (09:18→16:56)
[2020-09-30] MEDS: AMLODIPINE BESYLATE 10 MG TAB PO SCH (09:19)
[2020-09-30] MEDS: DOXYCYCLINE HYCLATE TABLET 100 MG TAB PO SCH ×2 (09:19→21:11)
[2020-09-30] MEDS: PREGABALIN 75 MG CAP PO SCH ×2 (09:20→16:57)
[2020-09-30] MEDS: ACYCLOVIR 200 MG CAP PO SCH ×3 (09:24→21:12)
[2020-09-30] MEDS: INSULIN LISPRO 100 UNIT/1 ML 3ML VIAL SQ SCH ×4 (09:24→21:14)
[2020-09-30] MEDS ORDERED: SODIUM CHLORIDE 0.9% 1000ML 500 ML IV ONE (14:45)
[2020-09-30] MEDS: CEFEPIME 1GM/NS 0.9% 50 ML 50 ML IV SCH (21:11)
[2020-09-30] MEDS: INSULIN GLARGINE 100 UNITS/ML VIAL SQ SCH (21:15)
[2020-10-01] VITALS (8 sets, daily range): BP systolic 102–182; BP diastolic 43–75
[2020-10-01] MEDS: ALBUTEROL/IPRATROPIUM 3 ML NEB NEB SCH ×4 (01:35→20:05)
[2020-10-01] MEDS: DOCUSATE SODIUM 100 MG CAP PO PRN ×2 (06:15→17:35)
[2020-10-01] MEDS: LEVOTHYROXINE SODIUM 75 MCG TAB PO SCH (06:15)
[2020-10-01] MEDS: BUDESONIDE/FORMOTEROL 160/4.5MCG INHALER INH SCH ×2 (07:04→20:05)
[2020-10-01] MEDS: CARVEDILOL 12.5 MG TAB PO SCH ×3 (09:28→20:54)
[2020-10-01] MEDS: SERTRALINE HCL 100 MG TAB PO SCH (09:28)
[2020-10-01] MEDS: PREGABALIN 75 MG CAP PO SCH ×2 (09:28→17:36)
[2020-10-01] MEDS: DOXYCYCLINE HYCLATE TABLET 100 MG TAB PO SCH ×2 (09:28→20:55)
[2020-10-01] MEDS: ACYCLOVIR 200 MG CAP PO SCH ×3 (09:28→20:55)
[2020-10-01] MEDS: HYDROCORTISONE OT PRN (09:30)
[2020-10-01] MEDS: POLYMYXIN B OT PRN (09:30)
[2020-10-01] MEDS: NEOMYCIN OT PRN (09:30)
[2020-10-01] MEDS: TIZANIDINE HCL 4 MG TAB PO SCH ×3 (09:33→20:55)
[2020-10-01] MEDS: INSULIN LISPRO 100 UNIT/1 ML 3ML VIAL SQ SCH ×4 (09:41→20:56)
[2020-10-01] MEDS ORDERED: SODIUM CHLORIDE 0.9% 1000ML 2,000 ML IV PRN (12:15)
[2020-10-01] MEDS ORDERED: ALBUMIN 25% 12.5GM 0.25 GM/ML BTL IV PRN (12:15)
[2020-10-01] MEDS ORDERED: HEPARIN SOD (PORCINE) 1000 UNIT/ML SDV IV PRN (12:30)
[2020-10-01] MEDS ORDERED: CLONIDINE HCL 0.1 MG TAB PO PRN (20:45)
[2020-10-01] MEDS: CEFEPIME 1GM/NS 0.9% 50 ML 50 ML IV SCH (20:55)
[2020-10-01] MEDS: INSULIN GLARGINE 100 UNITS/ML VIAL SQ SCH (20:56)
[2020-10-02] VITALS (9 sets, daily range): BP systolic 130–157; BP diastolic 45–96
[2020-10-02] MEDS: NEOMYCIN OT PRN ×2 (00:58→09:49)
[2020-10-02] MEDS: HYDROCORTISONE OT PRN ×2 (00:58→09:49)
[2020-10-02] MEDS: POLYMYXIN B OT PRN ×2 (00:58→09:49)
[2020-10-02] MEDS: ALBUTEROL/IPRATROPIUM 3 ML NEB NEB SCH ×4 (01:30→19:20)
[2020-10-02] MEDS: LEVOTHYROXINE SODIUM 75 MCG TAB PO SCH (06:48)
[2020-10-02] MEDS: DOCUSATE SODIUM 100 MG CAP PO PRN (06:49)
[2020-10-02] MEDS: INSULIN LISPRO 100 UNIT/1 ML 3ML VIAL SQ SCH ×4 (07:30→20:13)
[2020-10-02] MEDS: TIZANIDINE HCL 4 MG TAB PO SCH ×3 (09:00→20:13)
[2020-10-02] MEDS: CARVEDILOL 12.5 MG TAB PO SCH ×2 (09:47→16:53)
[2020-10-02] MEDS: BUDESONIDE/FORMOTEROL 160/4.5MCG INHALER INH SCH ×2 (09:47→19:20)
[2020-10-02] MEDS: DOXYCYCLINE HYCLATE TABLET 100 MG TAB PO SCH ×2 (09:48→20:13)
[2020-10-02] MEDS: PREGABALIN 75 MG CAP PO SCH ×2 (09:48→16:54)
[2020-10-02] MEDS: SERTRALINE HCL 100 MG TAB PO SCH (09:48)
[2020-10-02] MEDS: ACYCLOVIR 200 MG CAP PO SCH ×3 (09:49→20:13)
[2020-10-02] MEDS: CEFEPIME 1GM/NS 0.9% 50 ML 50 ML IV SCH (20:00)
[2020-10-02] MEDS: INSULIN GLARGINE 100 UNITS/ML VIAL SQ SCH (20:13)
[2020-10-03] VITALS (8 sets, daily range): BP systolic 115–183; BP diastolic 50–72
[2020-10-03] MEDS: ALBUTEROL/IPRATROPIUM 3 ML NEB NEB SCH ×4 (00:05→20:00)
[2020-10-03] MEDS: GUAIFENESIN/DEXTROMETHORPHAN LIQD 5 ML UDC PO PRN (01:26)
[2020-10-03] MEDS: LEVOTHYROXINE SODIUM 75 MCG TAB PO SCH (05:16)
[2020-10-03] MEDS: INSULIN LISPRO 100 UNIT/1 ML 3ML VIAL SQ SCH ×4 (07:30→21:22)
[2020-10-03] MEDS: BUDESONIDE/FORMOTEROL 160/4.5MCG INHALER INH SCH ×2 (07:55→19:00)
[2020-10-03] MEDS: TIZANIDINE HCL 4 MG TAB PO SCH ×3 (09:00→21:20)
[2020-10-03] MEDS: ACYCLOVIR 200 MG CAP PO SCH ×3 (12:00→21:20)
[2020-10-03] MEDS: SERTRALINE HCL 100 MG TAB PO SCH (12:00)
[2020-10-03] MEDS: DOXYCYCLINE HYCLATE TABLET 100 MG TAB PO SCH ×2 (12:00→21:20)
[2020-10-03] MEDS: PREGABALIN 75 MG CAP PO SCH ×2 (12:00→17:15)
[2020-10-03] MEDS: CARVEDILOL 12.5 MG TAB PO SCH ×2 (12:00→17:15)
[2020-10-03] MEDS ORDERED: EPOETIN ALFA-EPBX 10,000 UNIT/ML VIAL IV SCH (14:00)
[2020-10-03] MEDS: EPOETIN ALFA-EPBX 10,000 UNIT/ML VIAL IV SCH (15:18)
[2020-10-03] MEDS: CEFEPIME 1GM/NS 0.9% 50 ML 50 ML IV SCH (21:20)
[2020-10-03] MEDS: INSULIN GLARGINE 100 UNITS/ML VIAL SQ SCH (21:23)
[2020-10-04] VITALS (8 sets, daily range): BP systolic 125–167; BP diastolic 53–89
[2020-10-04] MEDS: ALBUTEROL/IPRATROPIUM 3 ML NEB NEB SCH ×4 (03:40→19:38)
[2020-10-04 05:30] LABS: BASOPHILS # (AUTO) 0.1 (0.0-0.1); BASOPHILS % 0.8 % (0.0-1.0); EOSINOPHILS # (AUTO) 0.3 (0.0-0.4); EOSINOPHILS % 3.4 % (0.0-6.0); HEMATOCRIT 26.5 % (34.2-44.1); HEMOGLOBIN 8.4 g/dL (12.0-16.0); LYMPHOCYTES # (AUTO) 1.2 (1.0-3.2); LYMPHOCYTES % 15.9 % (18.0-39.1); MEAN CORPUSCULAR HEMOGLOBIN 32.4 pg (28-32); MEAN CORPUSCULAR HGB CONC 31.7 g/dL (31-35); MEAN CORPUSCULAR VOLUME 102.3 fL (81-99); MONOCYTES # (AUTO) 0.7 (0.2-0.8); MONOCYTES % 8.8 % (4.4-11.3); NEUTROPHILS # (AUTO) 5.5 (2.1-6.9); NEUTROPHILS % 70.7 % (38.7-80.0); PLATELET COUNT 134 x10e3/uL (140-360); RED BLOOD COUNT 2.59 x10e6/uL (3.6-5.1); RED CELL DISTRIBUTION WIDTH 13.2 % (11.7-14.4)
[2020-10-04] MEDS ORDERED: ACETAMINOPHEN 325 MG TAB PO PRN ×2 (05:30)
[2020-10-04] MEDS: LEVOTHYROXINE SODIUM 75 MCG TAB PO SCH (05:44)
[2020-10-04 06:00] LABS: ALBUMIN 2.6 g/dL (3.5-5.0); ALBUMIN/GLOBULIN RATIO 0.7 (0.8-2.0); ANION GAP 17.7 mmol/L (8-16); CALCIUM 8.7 mg/dL (8.4-10.2); CREATININE, SERUM 3.45 mg/dL (0.57-1.11); MAGNESIUM 2.1 MG/DL (1.3-2.1); POTASSIUM 4.7 mmol/L (3.5-5.1)
[2020-10-04] MEDS: BUDESONIDE/FORMOTEROL 160/4.5MCG INHALER INH SCH ×2 (07:10→21:52)
[2020-10-04] MEDS: INSULIN LISPRO 100 UNIT/1 ML 3ML VIAL SQ SCH ×4 (07:30→21:51)
[2020-10-04] MEDS: PREGABALIN 75 MG CAP PO SCH (08:35)
[2020-10-04] MEDS: DOXYCYCLINE HYCLATE TABLET 100 MG TAB PO SCH (11:20)
[2020-10-04] MEDS: SERTRALINE HCL 100 MG TAB PO SCH (11:20)
[2020-10-04] MEDS: CARVEDILOL 12.5 MG TAB PO SCH ×2 (11:20→17:11)
[2020-10-04] MEDS: TIZANIDINE HCL 4 MG TAB PO SCH ×3 (11:20→21:00)
[2020-10-04] MEDS: ACYCLOVIR 200 MG CAP PO SCH ×3 (11:20→21:53)
[2020-10-04 12:45] LABS: BODY FLUID APPEARANCE SL.CLOUDY; BODY FLUID COLOR YELLOW; BODY FLUID TYPE PLEURAL
[2020-10-04 12:46] LABS: RBC,BODY FLUID 441 cells/uL; WBC,BODY FLUID 28 cells/uL
[2020-10-04 13:35] LABS: LYMPHOCYTES,BODY FLUID 90 %; MONO/MACROPHG,BODY FLUID 2 %; NEUTROPHILS,BODY FLUID 4 %; OTHER CELLS,BODY FLUID 4 %
[2020-10-04] MEDS ORDERED: INFLUENZA VIRUS VAC SPLIT INJ 0.5 ML SYR IM ONE (15:00)
[2020-10-04] MEDS: CEFEPIME 1GM/NS 0.9% 50 ML 50 ML IV SCH (21:52)
[2020-10-04] MEDS: INSULIN GLARGINE 100 UNITS/ML VIAL SQ SCH (21:52)
[2020-10-05] VITALS (8 sets, daily range): BP systolic 129–176; BP diastolic 41–74
[2020-10-05] MEDS: ALBUTEROL/IPRATROPIUM 3 ML NEB NEB SCH ×4 (00:35→19:00)
[2020-10-05] MEDS: LEVOTHYROXINE SODIUM 75 MCG TAB PO SCH (06:48)
[2020-10-05] MEDS: BUDESONIDE/FORMOTEROL 160/4.5MCG INHALER INH SCH ×2 (07:03→19:00)
[2020-10-05] MEDS: ACYCLOVIR 200 MG CAP PO SCH ×3 (10:19→20:27)
[2020-10-05] MEDS: SERTRALINE HCL 100 MG TAB PO SCH (10:19)
[2020-10-05] MEDS: TIZANIDINE HCL 4 MG TAB PO SCH ×3 (10:19→20:27)
[2020-10-05] MEDS: INSULIN LISPRO 100 UNIT/1 ML 3ML VIAL SQ SCH ×4 (10:24→20:30)
[2020-10-05] MEDS: CARVEDILOL 12.5 MG TAB PO SCH ×2 (13:39→17:55)
[2020-10-05] MEDS: EPOETIN ALFA-EPBX 10,000 UNIT/ML VIAL IV SCH (17:54)
[2020-10-05] MEDS ORDERED: ONDANSETRON HCL INJ 2MG/ML 2ML 2 MG/ML VIAL IV PRN (18:15)
[2020-10-05] MEDS: CEFEPIME 1GM/NS 0.9% 50 ML 50 ML IV SCH (20:27)
[2020-10-05] MEDS: INSULIN GLARGINE 100 UNITS/ML VIAL SQ SCH (20:30)
[2020-10-06] VITALS (8 sets, daily range): BP systolic 97–161; BP diastolic 42–82
[2020-10-06] MEDS: ALBUTEROL/IPRATROPIUM 3 ML NEB NEB SCH ×4 (00:29→20:12)
[2020-10-06] MEDS: LEVOTHYROXINE SODIUM 75 MCG TAB PO SCH (06:18)
[2020-10-06] MEDS: BUDESONIDE/FORMOTEROL 160/4.5MCG INHALER INH SCH ×2 (07:04→20:12)
[2020-10-06] MEDS: INSULIN LISPRO 100 UNIT/1 ML 3ML VIAL SQ SCH ×4 (07:30→21:00)
[2020-10-06] MEDS: CARVEDILOL 12.5 MG TAB PO SCH ×2 (09:37→17:19)
[2020-10-06] MEDS: SERTRALINE HCL 100 MG TAB PO SCH (09:37)
[2020-10-06] MEDS: TIZANIDINE HCL 4 MG TAB PO SCH ×3 (09:37→20:38)
[2020-10-06] MEDS: ACYCLOVIR 200 MG CAP PO SCH ×3 (09:38→20:38)
[2020-10-06] MEDS: INSULIN GLARGINE 100 UNITS/ML VIAL SQ SCH (20:53)
[2020-10-07] VITALS (8 sets, daily range): BP systolic 143–189; BP diastolic 46–76
[2020-10-07] MEDS: ALBUTEROL/IPRATROPIUM 3 ML NEB NEB SCH ×4 (00:55→19:52)
[2020-10-07] MEDS: LEVOTHYROXINE SODIUM 75 MCG TAB PO SCH (06:21)
[2020-10-07 06:22] LABS: BASOPHILS # (AUTO) 0.1 (0.0-0.1); BASOPHILS % 0.8 % (0.0-1.0); EOSINOPHILS # (AUTO) 0.3 (0.0-0.4); EOSINOPHILS % 3.8 % (0.0-6.0); HEMATOCRIT 26.6 % (34.2-44.1); HEMOGLOBIN 8.5 g/dL (12.0-16.0); LYMPHOCYTES # (AUTO) 1.3 (1.0-3.2); LYMPHOCYTES % 19.1 % (18.0-39.1); MEAN CORPUSCULAR HEMOGLOBIN 33.1 pg (28-32); MEAN CORPUSCULAR VOLUME 103.5 fL (81-99); MONOCYTES # (AUTO) 0.5 (0.2-0.8); MONOCYTES % 7.5 % (4.4-11.3); NEUTROPHILS # (AUTO) 4.6 (2.1-6.9); NEUTROPHILS % 68.3 % (38.7-80.0); PLATELET COUNT 133 x10e3/uL (140-360); RED BLOOD COUNT 2.57 x10e6/uL (3.6-5.1); RED CELL DISTRIBUTION WIDTH 13.1 % (11.7-14.4)
[2020-10-07 07:00] LABS: ALBUMIN 2.4 g/dL (3.5-5.0); ALBUMIN/GLOBULIN RATIO 0.7 (0.8-2.0); ANION GAP 14.6 mmol/L (8-16); CALCIUM 8.3 mg/dL (8.4-10.2); CREATININE, SERUM 4.38 mg/dL (0.57-1.11); POTASSIUM 4.6 mmol/L (3.5-5.1)
[2020-10-07] MEDS: BUDESONIDE/FORMOTEROL 160/4.5MCG INHALER INH SCH ×2 (07:25→19:52)
[2020-10-07] MEDS: INSULIN LISPRO 100 UNIT/1 ML 3ML VIAL SQ SCH ×4 (07:30→21:00)
[2020-10-07] MEDS: CARVEDILOL 12.5 MG TAB PO SCH ×2 (09:38→16:21)
[2020-10-07] MEDS: SERTRALINE HCL 100 MG TAB PO SCH (09:39)
[2020-10-07] MEDS: TIZANIDINE HCL 4 MG TAB PO SCH ×3 (09:39→21:00)
[2020-10-07] MEDS: ACYCLOVIR 200 MG CAP PO SCH ×3 (09:39→21:00)
[2020-10-07] MEDS: INSULIN GLARGINE 100 UNITS/ML VIAL SQ SCH (21:00)
[2020-10-08] VITALS: BP 147/40
[2020-10-08] MEDS: ALBUTEROL/IPRATROPIUM 3 ML NEB NEB SCH ×2 (01:52→07:20)
[2020-10-08 03:30] VITALS: BP 180/60
[2020-10-08] MEDS: LEVOTHYROXINE SODIUM 75 MCG TAB PO SCH (04:56)
[2020-10-08] MEDS: BUDESONIDE/FORMOTEROL 160/4.5MCG INHALER INH SCH (07:20)
[2020-10-08] MEDS: INSULIN LISPRO 100 UNIT/1 ML 3ML VIAL SQ SCH ×2 (07:30→11:30)
[2020-10-08 08:00] VITALS: BP 189/82
[2020-10-08 08:29] VITALS: BP 189/82
[2020-10-08] MEDS: CARVEDILOL 12.5 MG TAB PO SCH (12:10)
[2020-10-08] MEDS: TIZANIDINE HCL 4 MG TAB PO SCH (12:46)
[2020-10-08] MEDS: ACYCLOVIR 200 MG CAP PO SCH (12:46)
[2020-10-08] MEDS: SERTRALINE HCL 100 MG TAB PO SCH (12:46)
[2020-10-08] MEDS ORDERED: ONDANSETRON HCL 4 MG ORAL DISINTEGRATING TAB PO PRN (13:15)
== END 2020-10-08 13:42 | disposition home health service (06) | DRG 193 ==
LOC: ER 17:19 → ERHOLD 19:41 → MED/SURG3 21:27 → OBSVTOIN 09-28 12:50
PROVIDERS: ADMIT Internal Medicine; ATTEND Internal Medicine
PROC: 5A1D70Z Performance of Urinary Filtration, Intermittent, Less than 6 Hours Per Day (ICD-10-PCS; 2020-09-27)
PROC: 30233N1 Transfusion of Nonautologous Red Blood Cells into Peripheral Vein, Percutaneous Approach (ICD-10-PCS; 2020-09-28)
PROC: 0W993ZX Drainage of Right Pleural Cavity, Percutaneous Approach, Diagnostic (ICD-10-PCS; principal; 2020-09-30)
PROC: 0W993ZZ Drainage of Right Pleural Cavity, Percutaneous Approach (ICD-10-PCS; 2020-10-04)
DX: J15.9 Unspecified bacterial pneumonia (principal); J96.00 Acute respiratory failure, unspecified whether with hypoxia or hypercapnia; N18.6 End stage renal disease; I12.0 Hypertensive chronic kidney disease with stage 5 chronic kidney disease or end stage renal disease; J90 Pleural effusion, not elsewhere classified; D63.1 Anemia in chronic kidney disease; E11.22 Type 2 diabetes mellitus with diabetic chronic kidney disease; Z99.2 Dependence on renal dialysis; D69.6 Thrombocytopenia, unspecified; Z20.828 Contact with and (suspected) exposure to other viral communicable diseases; J45.909 Unspecified asthma, uncomplicated; E11.65 Type 2 diabetes mellitus with hyperglycemia
CPT/HCPCS: 32555; 36415; 71045; 71046; 74470; 76604; 80048; 80053; 82150; 82945; 82948; 83605; 83615; 83735; 83880; 84100; 84157; 84311; 84484; 85025; 85610; 86704; 86705; 86706; 86707; 86850; 86900; 86920; 87040; 87070; 87102; 87116; 87205; 87206; 87340; 87350; 88112; 88305; 89051; 93005; 94640; 94664; 96372; 97139; 99284; G0378; J0692; J1644; J1815; J2405; J7030; J7050; P9016; U0002

== ENCOUNTER 2020-10-29 09:16 | Emergency (ER) | payer MEDICARE ==
[~2020-10-29] VITALS: Ht 162.6 cm; Wt 90.3 kg
[~2020-10-29 09:16] MED LIST changes: +LANTUS 3ML100 UNITS/ SC
[2020-10-29] MEDS ORDERED: ONDANSETRON HCL INJ 2MG/ML 2ML 2 MG/ML VIAL IV PRN (09:45)
[2020-10-29 10:35] LABS: BASOPHILS # (AUTO) 0.1 (0.0-0.1); BASOPHILS % 0.6 % (0.0-1.0); EOSINOPHILS # (AUTO) 0.2 (0.0-0.4); EOSINOPHILS % 2.6 % (0.0-6.0); HEMATOCRIT 27.2 % (34.2-44.1); LYMPHOCYTES # (AUTO) 0.9 (1.0-3.2); LYMPHOCYTES % 10.1 % (18.0-39.1); MEAN CORPUSCULAR HEMOGLOBIN 32.8 pg (28-32); MEAN CORPUSCULAR HGB CONC 33.1 g/dL (31-35); MEAN CORPUSCULAR VOLUME 99.3 fL (81-99); MONOCYTES # (AUTO) 0.5 (0.2-0.8); MONOCYTES % 5.8 % (4.4-11.3); NEUTROPHILS % 80.4 % (38.7-80.0); PLATELET COUNT 211 x10e3/uL (140-360); RED BLOOD COUNT 2.74 x10e6/uL (3.6-5.1); RED CELL DISTRIBUTION WIDTH 13.3 % (11.7-14.4)
[2020-10-29 11:05] LABS: ALBUMIN 3.1 g/dL (3.5-5.0); ALBUMIN/GLOBULIN RATIO 0.8 (0.8-2.0); ANION GAP 20.5 mmol/L (8-16); CALCIUM 8.4 mg/dL (8.4-10.2); CREATININE, SERUM 8.33 mg/dL (0.57-1.11); POTASSIUM 4.5 mmol/L (3.5-5.1)
== END 2020-10-29 11:41 | disposition home or self-care (01) ==
LOC: ER 09:30
DX: R06.00 Dyspnea, unspecified (principal); R05 Cough; I12.0 Hypertensive chronic kidney disease with stage 5 chronic kidney disease or end stage renal disease; E11.22 Type 2 diabetes mellitus with diabetic chronic kidney disease; N18.6 End stage renal disease; Z99.2 Dependence on renal dialysis; I50.9 Heart failure, unspecified; K76.9 Liver disease, unspecified
CPT/HCPCS: 36415; 71045; 80053; 83605; 83880; 84484; 85025; 87040; 87400; 93005; 99284; U0002

== ENCOUNTER 2020-11-05 17:51 | Inpatient (IN) | payer MEDICARE ==
[~2020-11-05] VITALS: Ht 162.6 cm; Wt 89.0 kg
[2020-11-05 18:43] LABS: BASOPHILS # (AUTO) 0.1 (0.0-0.1); BASOPHILS % 0.5 % (0.0-1.0); EOSINOPHILS # (AUTO) 0.2 (0.0-0.4); EOSINOPHILS % 2.3 % (0.0-6.0); HEMATOCRIT 26.3 % (34.2-44.1); HEMOGLOBIN 8.7 g/dL (12.0-16.0); LYMPHOCYTES # (AUTO) 0.7 (1.0-3.2); LYMPHOCYTES % 6.8 % (18.0-39.1); MEAN CORPUSCULAR HEMOGLOBIN 32.5 pg (28-32); MEAN CORPUSCULAR HGB CONC 33.1 g/dL (31-35); MEAN CORPUSCULAR VOLUME 98.1 fL (81-99); MONOCYTES # (AUTO) 0.4 (0.2-0.8); MONOCYTES % 4.1 % (4.4-11.3); NEUTROPHILS # (AUTO) 8.4 (2.1-6.9); NEUTROPHILS % 85.9 % (38.7-80.0); PLATELET COUNT 231 x10e3/uL (140-360); RED BLOOD COUNT 2.68 x10e6/uL (3.6-5.1); RED CELL DISTRIBUTION WIDTH 13.2 % (11.7-14.4)
[2020-11-05 18:56] LABS: INR 0.9; PROTHROMBIN TIME 12.7 seconds (11.9-14.5)
[2020-11-05 18:57] LABS: PARTIAL THROMBOPLASTIN TIME 28.7 seconds (23.8-35.5)
[2020-11-05 19:06] LABS: ALBUMIN 3.3 g/dL (3.5-5.0); ALBUMIN/GLOBULIN RATIO 0.8 (0.8-2.0); ANION GAP 17.3 mmol/L (8-16); CALCIUM 8.7 mg/dL (8.4-10.2); CREATININE, SERUM 4.72 mg/dL (0.57-1.11); POTASSIUM 3.3 mmol/L (3.5-5.1)
[2020-11-05 19:12] LABS: CREATINE KINASE MB 1.5 ng/mL (0-5.0)
[2020-11-05] MEDS ORDERED: ASPIRIN 81 MG CHEW TAB PO ONE (19:30)
[2020-11-05] MEDS ORDERED: SODIUM CHLORIDE FLUSH 10 ML SYR INJ PRN (20:15)
[2020-11-05] MEDS ORDERED: DEXTROSE 50% SYRINGE 50 ML IV PRN (20:15)
[2020-11-05] MEDS ORDERED: CLOPIDOGREL BISULFATE 75 MG TAB PO ONE (20:15)
[2020-11-05] MEDS: INSULIN REGULAR, HUMAN 100 UNIT/1 ML 3ML VIAL SQ SCH (21:11)
[2020-11-05] MEDS ORDERED: ACETAMINOPHEN/CODEINE 300MG - 30MG TAB PO PRN (21:30)
[2020-11-05] MEDS ORDERED: HYDRALAZINE HCL 25 MG TAB PO PRN (21:30)
[2020-11-05] MEDS ORDERED: TRAMADOL HCL 50 MG TAB PO PRN (21:30)
[2020-11-05] MEDS ORDERED: MIDODRINE HCL 5 MG TABLET PO PRN (21:30)
[2020-11-05] MEDS ORDERED: TIZANIDINE HCL 4 MG TAB PO PRN (21:30)
[2020-11-05] MEDS ORDERED: GABAPENTIN 400 MG CAP PO PRN (21:30)
[2020-11-05] MEDS ORDERED: HYDRALAZINE HCL 20 MG/ML VIAL IV STA (21:41)
[2020-11-05] MEDS ORDERED: HYDRALAZINE HCL 20 MG/ML VIAL IV PRN (21:45)
[2020-11-05] MEDS: CARVEDILOL 12.5 MG TAB PO SCH (22:16)
[2020-11-05] MEDS: AMLODIPINE BESYLATE 10 MG TAB PO SCH (22:16)
[2020-11-06] VITALS (19 sets, daily range): BP systolic 140–179; BP diastolic 47–74
[2020-11-06 01:42] LABS: CREATINE KINASE MB 1.1 ng/mL (0-5.0)
[2020-11-06 06:14] LABS: BASOPHILS # (AUTO) 0.1 (0.0-0.1); BASOPHILS % 0.7 % (0.0-1.0); EOSINOPHILS # (AUTO) 0.3 (0.0-0.4); HEMATOCRIT 23.7 % (34.2-44.1); LYMPHOCYTES # (AUTO) 1.1 (1.0-3.2); LYMPHOCYTES % 11.2 % (18.0-39.1); MEAN CORPUSCULAR HEMOGLOBIN 33.5 pg (28-32); MEAN CORPUSCULAR HGB CONC 33.3 g/dL (31-35); MEAN CORPUSCULAR VOLUME 100.4 fL (81-99); MONOCYTES # (AUTO) 0.7 (0.2-0.8); MONOCYTES % 6.8 % (4.4-11.3); NEUTROPHILS # (AUTO) 7.7 (2.1-6.9); NEUTROPHILS % 77.8 % (38.7-80.0); RED BLOOD COUNT 2.36 x10e6/uL (3.6-5.1); RED CELL DISTRIBUTION WIDTH 13.2 % (11.7-14.4)
[2020-11-06 06:23] LABS: HEMOGLOBIN 7.9 g/dL (12.0-16.0); PLATELET COUNT 193 x10e3/uL (140-360)
[2020-11-06 06:44] LABS: ALBUMIN 2.8 g/dL (3.5-5.0); ALBUMIN/GLOBULIN RATIO 0.8 (0.8-2.0); ANION GAP 16.6 mmol/L (8-16); CALCIUM 8.6 mg/dL (8.4-10.2); CHOL/HDL RATIO 2.8 (3.0-3.6); CREATININE, SERUM 5.34 mg/dL (0.57-1.11); POTASSIUM 3.6 mmol/L (3.5-5.1)
[2020-11-06 07:26] LABS: CREATINE KINASE MB 1.1 ng/mL (0-5.0)
[2020-11-06] MEDS: INSULIN REGULAR, HUMAN 100 UNIT/1 ML 3ML VIAL SQ SCH ×4 (07:30→21:22)
[2020-11-06] MEDS ORDERED: CLOPIDOGREL BISULFATE 75 MG TAB PO SCH (09:00)
[2020-11-06] MEDS: CARVEDILOL 12.5 MG TAB PO SCH ×2 (09:00→18:30)
[2020-11-06] MEDS: LEVOTHYROXINE SODIUM 75 MCG TAB PO SCH (09:02)
[2020-11-06] MEDS: ASPIRIN 81 MG ENTERIC COATED PO SCH (09:02)
[2020-11-06] MEDS ORDERED: SODIUM CHLORIDE 0.9% 1000ML 1,000 ML IV SCH (09:15)
[2020-11-06] MEDS ORDERED: LIDOCAINE HCL 2% LOCAL 20 ML VIAL ONE (10:28)
[2020-11-06] MEDS ORDERED: MIDAZOLAM HCL 2 MG/2 ML VIAL ONE (10:28)
[2020-11-06] MEDS ORDERED: FENTANYL CITRATE/PF 100MCG/2 ML INJ ONE (10:28)
[2020-11-06] MEDS ORDERED: HEPARIN SOD/SOD CHLORIDE 2,000 ML ONE (10:29)
[2020-11-06] MEDS ORDERED: IOPAMIDOL 370 MG/ML 200 ML INFUS..BTL INJ ONE (10:29)
[2020-11-06] MEDS ORDERED: SODIUM CHLORIDE 0.9% 1000ML 1,000 ML ONE (10:29)
[2020-11-06] MEDS ORDERED: SODIUM CHLORIDE 0.9% 1000ML 2,000 ML ONE (12:40)
[2020-11-06] MEDS: AMLODIPINE BESYLATE 10 MG TAB PO SCH (18:30)
[2020-11-06] MEDS: INSULIN GLARGINE 100 UNITS/ML VIAL SQ SCH (21:23)
[2020-11-07] VITALS (8 sets, daily range): BP systolic 121–147; BP diastolic 39–59
[2020-11-07 06:05] LABS: BASOPHILS # (AUTO) 0.1 (0.0-0.1); BASOPHILS % 0.6 % (0.0-1.0); EOSINOPHILS # (AUTO) 0.5 (0.0-0.4); EOSINOPHILS % 4.8 % (0.0-6.0); HEMATOCRIT 26.1 % (34.2-44.1); HEMOGLOBIN 8.5 g/dL (12.0-16.0); LYMPHOCYTES # (AUTO) 1.3 (1.0-3.2); LYMPHOCYTES % 13.4 % (18.0-39.1); MEAN CORPUSCULAR HEMOGLOBIN 32.7 pg (28-32); MEAN CORPUSCULAR HGB CONC 32.6 g/dL (31-35); MEAN CORPUSCULAR VOLUME 100.4 fL (81-99); MONOCYTES # (AUTO) 0.7 (0.2-0.8); MONOCYTES % 6.8 % (4.4-11.3); NEUTROPHILS # (AUTO) 7.3 (2.1-6.9); NEUTROPHILS % 73.9 % (38.7-80.0); PLATELET COUNT 236 x10e3/uL (140-360); RED CELL DISTRIBUTION WIDTH 13.3 % (11.7-14.4)
[2020-11-07 06:46] LABS: ANION GAP 16.7 mmol/L (8-16); CALCIUM 8.5 mg/dL (8.4-10.2); CREATININE, SERUM 4.7 mg/dL (0.57-1.11); MAGNESIUM 2.3 MG/DL (1.3-2.1); POTASSIUM 3.7 mmol/L (3.5-5.1)
[2020-11-07] MEDS: ASPIRIN 81 MG ENTERIC COATED PO SCH (08:38)
[2020-11-07] MEDS: LEVOTHYROXINE SODIUM 75 MCG TAB PO SCH (08:38)
[2020-11-07] MEDS: INSULIN REGULAR, HUMAN 100 UNIT/1 ML 3ML VIAL SQ SCH ×4 (08:39→20:45)
[2020-11-07] MEDS: AMLODIPINE BESYLATE 10 MG TAB PO SCH (09:00)
[2020-11-07] MEDS: CARVEDILOL 12.5 MG TAB PO SCH ×2 (09:00→15:59)
[2020-11-07] MEDS ORDERED: BENZONATATE 100 MG CAP PO PRN (09:30)
[2020-11-07] MEDS: MEROPENEM 500MG/ NS 50ML 50 ML IV SCH ×2 (10:00→16:58)
[2020-11-07] MEDS: GUAIFENESIN/CODEINE 10 ML CUP PO PRN ×2 (10:19→21:05)
[2020-11-07] MEDS: BENZONATATE 100 MG CAP PO SCH ×4 (12:30→20:45)
[2020-11-07] MEDS: INSULIN GLARGINE 100 UNITS/ML VIAL SQ SCH (20:45)
[2020-11-08] VITALS (7 sets, daily range): BP systolic 126–157; BP diastolic 54–67
[2020-11-08] MEDS: GUAIFENESIN/CODEINE 10 ML CUP PO PRN ×3 (01:15→20:55)
[2020-11-08] MEDS: MEROPENEM 500MG/ NS 50ML 50 ML IV SCH ×3 (01:50→17:54)
[2020-11-08 06:02] LABS: ANION GAP 14.2 mmol/L (8-16); CALCIUM 8.4 mg/dL (8.4-10.2); CREATININE, SERUM 3.56 mg/dL (0.57-1.11); POTASSIUM 4.2 mmol/L (3.5-5.1)
[2020-11-08] MEDS: INSULIN REGULAR, HUMAN 100 UNIT/1 ML 3ML VIAL SQ SCH ×4 (07:30→20:55)
[2020-11-08] MEDS: CARVEDILOL 12.5 MG TAB PO SCH ×2 (09:00→17:20)
[2020-11-08] MEDS: ASPIRIN 81 MG ENTERIC COATED PO SCH (09:26)
[2020-11-08] MEDS: LEVOTHYROXINE SODIUM 75 MCG TAB PO SCH (09:27)
[2020-11-08] MEDS: BENZONATATE 100 MG CAP PO SCH ×3 (09:27→20:53)
[2020-11-08] MEDS: AMLODIPINE BESYLATE 10 MG TAB PO SCH (09:27)
[2020-11-08] MEDS: INSULIN GLARGINE 100 UNITS/ML VIAL SQ SCH (20:54)
[2020-11-09] VITALS (7 sets, daily range): BP systolic 114–165; BP diastolic 37–61
[2020-11-09] MEDS: MEROPENEM 500MG/ NS 50ML 50 ML IV SCH ×3 (02:30→18:07)
[2020-11-09] MEDS ORDERED: SODIUM CHLORIDE 0.9% 250ML 250 ML ONE (03:04)
[2020-11-09 06:51] LABS: BASOPHILS # (AUTO) 0.1 (0.0-0.1); EOSINOPHILS # (AUTO) 0.3 (0.0-0.4); EOSINOPHILS % 5.1 % (0.0-6.0); LYMPHOCYTES % 14.8 % (18.0-39.1); MONOCYTES # (AUTO) 0.9 (0.2-0.8); MONOCYTES % 12.9 % (4.4-11.3); NEUTROPHILS # (AUTO) 4.4 (2.1-6.9); NEUTROPHILS % 65.6 % (38.7-80.0); PLATELET COUNT 213 x10e3/uL (140-360); RED CELL DISTRIBUTION WIDTH 13.5 % (11.7-14.4)
[2020-11-09 07:09] LABS: ANION GAP 20.8 mmol/L (8-16); CALCIUM 8.2 mg/dL (8.4-10.2); CREATININE, SERUM 5.57 mg/dL (0.57-1.11); MAGNESIUM 2.4 MG/DL (1.3-2.1); PHOSPHORUS 7.2 MG/DL (2.3-4.7); POTASSIUM 4.8 mmol/L (3.5-5.1)
[2020-11-09] MEDS ORDERED: SODIUM CHLORIDE 0.9% 1000ML 2,000 ML ONE (07:25)
[2020-11-09] MEDS: INSULIN REGULAR, HUMAN 100 UNIT/1 ML 3ML VIAL SQ SCH ×4 (07:30→21:00)
[2020-11-09] MEDS: AMLODIPINE BESYLATE 10 MG TAB PO SCH (09:00)
[2020-11-09] MEDS: BENZONATATE 100 MG CAP PO SCH ×3 (09:00→20:14)
[2020-11-09] MEDS: CARVEDILOL 12.5 MG TAB PO SCH ×2 (09:00→17:20)
[2020-11-09] MEDS: LEVOTHYROXINE SODIUM 75 MCG TAB PO SCH (11:49)
[2020-11-09] MEDS: ASPIRIN 81 MG ENTERIC COATED PO SCH (11:49)
[2020-11-09] MEDS: EPOETIN ALFA-EPBX 10,000 UNIT/ML VIAL SC SCH ×2 (15:00→15:10)
[2020-11-09] MEDS: GUAIFENESIN/CODEINE 10 ML CUP PO PRN (20:15)
[2020-11-09] MEDS: INSULIN GLARGINE 100 UNITS/ML VIAL SQ SCH (21:05)
[2020-11-10] VITALS (8 sets, daily range): BP systolic 111–155; BP diastolic 28–73
[2020-11-10] MEDS: MEROPENEM 500MG/ NS 50ML 50 ML IV SCH ×3 (01:09→18:46)
[2020-11-10] MEDS: INSULIN REGULAR, HUMAN 100 UNIT/1 ML 3ML VIAL SQ SCH ×4 (07:30→22:25)
[2020-11-10] MEDS ORDERED: BISACODYL 10 MG SUPP PR PRN (08:45)
[2020-11-10] MEDS ORDERED: BISACODYL 5 MG TAB EC PO PRN (08:45)
[2020-11-10] MEDS ORDERED: LACTULOSE SYRUP 20 GM/30 ML UDC PO PRN (08:45)
[2020-11-10] MEDS: AMLODIPINE BESYLATE 10 MG TAB PO SCH (09:00)
[2020-11-10] MEDS: CARVEDILOL 12.5 MG TAB PO SCH ×2 (09:00→17:29)
[2020-11-10] MEDS: LEVOTHYROXINE SODIUM 75 MCG TAB PO SCH (09:05)
[2020-11-10] MEDS: BENZONATATE 100 MG CAP PO SCH ×3 (09:05→22:25)
[2020-11-10] MEDS: SENNA-S TABLET PO SCH ×2 (09:16→17:28)
[2020-11-10] MEDS: INSULIN GLARGINE 100 UNITS/ML VIAL SQ SCH (22:25)
[2020-11-11] VITALS (7 sets, daily range): BP systolic 101–181; BP diastolic 33–57
[2020-11-11] MEDS: MEROPENEM 500MG/ NS 50ML 50 ML IV SCH ×3 (02:00→16:27)
[2020-11-11 06:16] LABS: BASOPHILS % 0.6 % (0.0-1.0); EOSINOPHILS # (AUTO) 0.5 (0.0-0.4); EOSINOPHILS % 6.9 % (0.0-6.0); HEMATOCRIT 24.4 % (34.2-44.1); LYMPHOCYTES # (AUTO) 1.3 (1.0-3.2); MEAN CORPUSCULAR HEMOGLOBIN 33.1 pg (28-32); MEAN CORPUSCULAR HGB CONC 32.8 g/dL (31-35); MEAN CORPUSCULAR VOLUME 100.8 fL (81-99); MONOCYTES # (AUTO) 0.8 (0.2-0.8); MONOCYTES % 11.4 % (4.4-11.3); NEUTROPHILS # (AUTO) 4.4 (2.1-6.9); NEUTROPHILS % 62.7 % (38.7-80.0); PLATELET COUNT 203 x10e3/uL (140-360); RED BLOOD COUNT 2.42 x10e6/uL (3.6-5.1); RED CELL DISTRIBUTION WIDTH 13.4 % (11.7-14.4)
[2020-11-11] MEDS: INSULIN REGULAR, HUMAN 100 UNIT/1 ML 3ML VIAL SQ SCH ×4 (07:30→21:49)
[2020-11-11] MEDS: CARVEDILOL 12.5 MG TAB PO SCH ×2 (10:48→16:26)
[2020-11-11] MEDS: BENZONATATE 100 MG CAP PO SCH ×3 (10:53→21:30)
[2020-11-11] MEDS: AMLODIPINE BESYLATE 10 MG TAB PO SCH (10:53)
[2020-11-11] MEDS: SENNA-S TABLET PO SCH ×2 (10:53→16:26)
[2020-11-11] MEDS: LEVOTHYROXINE SODIUM 75 MCG TAB PO SCH (10:53)
[2020-11-11] MEDS: FLUCONAZOLE 100 MG TAB PO SCH (16:26)
[2020-11-11] MEDS: ACYCLOVIR 200 MG CAP PO SCH ×2 (16:26→23:52)
[2020-11-11] MEDS: INSULIN GLARGINE 100 UNITS/ML VIAL SQ SCH (21:40)
[2020-11-12] VITALS (9 sets, daily range): BP systolic 121–174; BP diastolic 34–80
[2020-11-12] MEDS: MEROPENEM 500MG/ NS 50ML 50 ML IV SCH (02:00)
[2020-11-12] MEDS: ACYCLOVIR 200 MG CAP PO SCH (05:55)
[2020-11-12 06:01] LABS: BASOPHILS % 0.7 % (0.0-1.0); EOSINOPHILS # (AUTO) 0.4 (0.0-0.4); EOSINOPHILS % 6.8 % (0.0-6.0); HEMATOCRIT 23.8 % (34.2-44.1); HEMOGLOBIN 7.7 g/dL (12.0-16.0); LYMPHOCYTES # (AUTO) 0.8 (1.0-3.2); MEAN CORPUSCULAR HEMOGLOBIN 32.6 pg (28-32); MEAN CORPUSCULAR HGB CONC 32.4 g/dL (31-35); MEAN CORPUSCULAR VOLUME 100.8 fL (81-99); MONOCYTES # (AUTO) 0.6 (0.2-0.8); MONOCYTES % 10.5 % (4.4-11.3); NEUTROPHILS # (AUTO) 3.7 (2.1-6.9); NEUTROPHILS % 67.6 % (38.7-80.0); PLATELET COUNT 167 x10e3/uL (140-360); RED BLOOD COUNT 2.36 x10e6/uL (3.6-5.1); RED CELL DISTRIBUTION WIDTH 13.5 % (11.7-14.4)
[2020-11-12 06:28] LABS: ANION GAP 20.3 mmol/L (8-16); CALCIUM 7.9 mg/dL (8.4-10.2); MAGNESIUM 2.6 MG/DL (1.3-2.1); PHOSPHORUS 9.6 MG/DL (2.3-4.7); POTASSIUM 4.3 mmol/L (3.5-5.1)
[2020-11-12] MEDS: AMLODIPINE BESYLATE 10 MG TAB PO SCH (09:00)
[2020-11-12] MEDS: CARVEDILOL 12.5 MG TAB PO SCH ×2 (09:00→17:09)
[2020-11-12] MEDS ORDERED: SODIUM CHLORIDE 0.9% 1000ML 2,000 ML ONE (09:04)
[2020-11-12] MEDS: INSULIN REGULAR, HUMAN 100 UNIT/1 ML 3ML VIAL SQ SCH ×4 (09:47→21:07)
[2020-11-12] MEDS: FLUCONAZOLE 100 MG TAB PO SCH (09:49)
[2020-11-12] MEDS: SENNA-S TABLET PO SCH ×2 (09:49→17:10)
[2020-11-12] MEDS: BENZONATATE 100 MG CAP PO SCH ×3 (09:49→21:03)
[2020-11-12] MEDS: LEVOTHYROXINE SODIUM 75 MCG TAB PO SCH (09:49)
[2020-11-12] MEDS: SEVELAMER CARBONATE 800 MG TAB PO SCH ×2 (12:00→17:10)
[2020-11-12] MEDS: EPOETIN ALFA-EPBX 10,000 UNIT/ML VIAL SC SCH (17:05)
[2020-11-12] MEDS: INSULIN GLARGINE 100 UNITS/ML VIAL SQ SCH (21:06)
[2020-11-12] MEDS ORDERED: CHOLESTYRAMINE 4 GM PACKET PO PRN (23:15)
[2020-11-13] VITALS (7 sets, daily range): BP systolic 138–182; BP diastolic 38–69
[2020-11-13 06:55] LABS: ANION GAP 15.1 mmol/L (8-16); CALCIUM 8.1 mg/dL (8.4-10.2); CREATININE, SERUM 4.39 mg/dL (0.57-1.11); POTASSIUM 4.1 mmol/L (3.5-5.1)
[2020-11-13] MEDS: INSULIN REGULAR, HUMAN 100 UNIT/1 ML 3ML VIAL SQ SCH ×4 (07:30→20:51)
[2020-11-13] MEDS: SEVELAMER CARBONATE 800 MG TAB PO SCH ×3 (09:28→17:11)
[2020-11-13] MEDS: BENZONATATE 100 MG CAP PO SCH ×3 (09:29→21:35)
[2020-11-13] MEDS: CARVEDILOL 12.5 MG TAB PO SCH ×2 (09:29→17:11)
[2020-11-13] MEDS: ACYCLOVIR 200 MG CAP PO SCH (09:29)
[2020-11-13] MEDS: AMLODIPINE BESYLATE 10 MG TAB PO SCH (09:29)
[2020-11-13] MEDS: LEVOTHYROXINE SODIUM 75 MCG TAB PO SCH (09:29)
[2020-11-13] MEDS: CHOLESTYRAMINE 4 GM PACKET PO SCH ×4 (10:30→21:45)
[2020-11-13] MEDS: VANCOMYCIN 250MG/5ML ORAL SOLN PO SCH ×3 (11:45→21:35)
[2020-11-13] MEDS: INSULIN GLARGINE 100 UNITS/ML VIAL SQ SCH (21:00)
[2020-11-14 04:27] VITALS: BP 161/36
[2020-11-14 05:55] LABS: BASOPHILS % 0.5 % (0.0-1.0); EOSINOPHILS # (AUTO) 0.4 (0.0-0.4); EOSINOPHILS % 6.3 % (0.0-6.0); HEMATOCRIT 25.2 % (34.2-44.1); HEMOGLOBIN 8.1 g/dL (12.0-16.0); LYMPHOCYTES # (AUTO) 1.5 (1.0-3.2); LYMPHOCYTES % 26.1 % (18.0-39.1); MEAN CORPUSCULAR HEMOGLOBIN 32.8 pg (28-32); MEAN CORPUSCULAR HGB CONC 32.1 g/dL (31-35); MONOCYTES # (AUTO) 0.5 (0.2-0.8); MONOCYTES % 8.6 % (4.4-11.3); NEUTROPHILS # (AUTO) 3.4 (2.1-6.9); NEUTROPHILS % 57.8 % (38.7-80.0); PLATELET COUNT 189 x10e3/uL (140-360); RED BLOOD COUNT 2.47 x10e6/uL (3.6-5.1); RED CELL DISTRIBUTION WIDTH 13.4 % (11.7-14.4)
[2020-11-14] MEDS: VANCOMYCIN 250MG/5ML ORAL SOLN PO SCH ×3 (06:29→22:00)
[2020-11-14 06:44] LABS: ANION GAP 16.7 mmol/L (8-16); CREATININE, SERUM 6.15 mg/dL (0.57-1.11); MAGNESIUM 2.5 MG/DL (1.3-2.1); PHOSPHORUS 7.3 MG/DL (2.3-4.7); POTASSIUM 4.7 mmol/L (3.5-5.1)
[2020-11-14] MEDS: INSULIN REGULAR, HUMAN 100 UNIT/1 ML 3ML VIAL SQ SCH ×4 (07:30→21:00)
[2020-11-14 08:32] VITALS: BP 166/78
[2020-11-14] MEDS: AMLODIPINE BESYLATE 10 MG TAB PO SCH (08:45)
[2020-11-14] MEDS: CARVEDILOL 12.5 MG TAB PO SCH ×2 (08:45→17:56)
[2020-11-14] MEDS: LEVOTHYROXINE SODIUM 75 MCG TAB PO SCH (08:55)
[2020-11-14] MEDS: CHOLESTYRAMINE 4 GM PACKET PO SCH ×3 (08:55→21:27)
[2020-11-14] MEDS: BENZONATATE 100 MG CAP PO SCH ×3 (08:55→21:57)
[2020-11-14] MEDS: SEVELAMER CARBONATE 800 MG TAB PO SCH ×3 (08:55→17:56)
[2020-11-14] MEDS: ACYCLOVIR 200 MG CAP PO SCH (08:55)
[2020-11-14 09:47] VITALS: BP 166/78
[2020-11-14] MEDS ORDERED: MANNITOL 25% 12.5GM/50 ML VIAL IV PRN (11:45)
[2020-11-14] MEDS ORDERED: ALBUMIN 25% 12.5GM 0.25 GM/ML BTL IV PRN (11:45)
[2020-11-14] MEDS ORDERED: SODIUM CHLORIDE 0.9% 1000ML 2,000 ML IV PRN (11:45)
[2020-11-14] MEDS ORDERED: SODIUM CHLORIDE 0.9% 250ML 500 ML IV PRN (11:45)
[2020-11-14 12:04] VITALS: BP 151/57
[2020-11-14] MEDS: EPOETIN ALFA-EPBX 10,000 UNIT/ML VIAL SC SCH (15:21)
[2020-11-14 17:24] VITALS: BP 149/64
[2020-11-14 21:00] VITALS: BP 167/70
[2020-11-14] MEDS: INSULIN GLARGINE 100 UNITS/ML VIAL SQ SCH (21:00)
[2020-11-15] VITALS (7 sets, daily range): BP systolic 147–175; BP diastolic 46–86
[2020-11-15] MEDS: VANCOMYCIN 250MG/5ML ORAL SOLN PO SCH ×3 (06:22→20:32)
[2020-11-15 06:49] LABS: ANION GAP 17.5 mmol/L (8-16); CALCIUM 7.9 mg/dL (8.4-10.2); CREATININE, SERUM 7.41 mg/dL (0.57-1.11)
[2020-11-15 06:58] LABS: POTASSIUM 5.5 mmol/L (3.5-5.1)
[2020-11-15] MEDS: INSULIN REGULAR, HUMAN 100 UNIT/1 ML 3ML VIAL SQ SCH ×4 (07:30→20:31)
[2020-11-15] MEDS: SEVELAMER CARBONATE 800 MG TAB PO SCH ×3 (09:24→17:00)
[2020-11-15] MEDS: CARVEDILOL 12.5 MG TAB PO SCH ×2 (09:25→17:00)
[2020-11-15] MEDS: BENZONATATE 100 MG CAP PO SCH ×3 (09:25→20:32)
[2020-11-15] MEDS: ACYCLOVIR 200 MG CAP PO SCH (09:25)
[2020-11-15] MEDS: AMLODIPINE BESYLATE 10 MG TAB PO SCH (09:25)
[2020-11-15] MEDS: LEVOTHYROXINE SODIUM 75 MCG TAB PO SCH (09:25)
[2020-11-15] MEDS: CHOLESTYRAMINE 4 GM PACKET PO SCH ×3 (09:26→20:32)
[2020-11-15] MEDS ORDERED: SODIUM CHLORIDE 0.9% 250ML 250 ML ONE (12:28)
[2020-11-15] MEDS: INSULIN GLARGINE 100 UNITS/ML VIAL SQ SCH (20:31)
[2020-11-16] VITALS (9 sets, daily range): BP systolic 148–232; BP diastolic 40–78
[2020-11-16] MEDS: VANCOMYCIN 250MG/5ML ORAL SOLN PO SCH ×3 (05:02→22:00)
[2020-11-16 07:16] LABS: ANION GAP 15.3 mmol/L (8-16); CREATININE, SERUM 4.02 mg/dL (0.57-1.11); POTASSIUM 4.3 mmol/L (3.5-5.1)
[2020-11-16] MEDS: INSULIN REGULAR, HUMAN 100 UNIT/1 ML 3ML VIAL SQ SCH ×4 (07:30→20:37)
[2020-11-16] MEDS: SEVELAMER CARBONATE 800 MG TAB PO SCH ×3 (07:58→17:13)
[2020-11-16] MEDS: CARVEDILOL 12.5 MG TAB PO SCH ×2 (08:08→17:18)
[2020-11-16] MEDS: ACYCLOVIR 200 MG CAP PO SCH (08:09)
[2020-11-16] MEDS: CHOLESTYRAMINE 4 GM PACKET PO SCH ×3 (08:09→20:36)
[2020-11-16] MEDS: LEVOTHYROXINE SODIUM 75 MCG TAB PO SCH (08:09)
[2020-11-16] MEDS: AMLODIPINE BESYLATE 10 MG TAB PO SCH (08:09)
[2020-11-16] MEDS: BENZONATATE 100 MG CAP PO SCH ×3 (08:09→20:36)
[2020-11-16] MEDS: INSULIN GLARGINE 100 UNITS/ML VIAL SQ SCH (20:38)
[2020-11-17] VITALS (8 sets, daily range): BP systolic 115–176; BP diastolic 29–75
[2020-11-17] MEDS: VANCOMYCIN 250MG/5ML ORAL SOLN PO SCH ×3 (05:25→21:17)
[2020-11-17] MEDS: INSULIN REGULAR, HUMAN 100 UNIT/1 ML 3ML VIAL SQ SCH ×4 (07:30→21:06)
[2020-11-17] MEDS: BENZONATATE 100 MG CAP PO SCH ×3 (09:00→21:16)
[2020-11-17] MEDS: ACYCLOVIR 200 MG CAP PO SCH (09:00)
[2020-11-17] MEDS: CHOLESTYRAMINE 4 GM PACKET PO SCH ×3 (09:24→21:17)
[2020-11-17] MEDS: LEVOTHYROXINE SODIUM 75 MCG TAB PO SCH (09:24)
[2020-11-17] MEDS: SEVELAMER CARBONATE 800 MG TAB PO SCH ×3 (09:24→16:24)
[2020-11-17] MEDS: AMLODIPINE BESYLATE 10 MG TAB PO SCH (09:24)
[2020-11-17] MEDS: CARVEDILOL 12.5 MG TAB PO SCH ×2 (09:24→16:23)
[2020-11-17] MEDS: INSULIN GLARGINE 100 UNITS/ML VIAL SQ SCH (21:06)
[2020-11-18 00:18] VITALS: BP 171/56
[2020-11-18 05:10] VITALS: BP 158/74
[2020-11-18] MEDS: VANCOMYCIN 250MG/5ML ORAL SOLN PO SCH (05:45)
[2020-11-18 06:22] LABS: BASOPHILS % 0.5 % (0.0-1.0); EOSINOPHILS # (AUTO) 0.3 (0.0-0.4); EOSINOPHILS % 5.4 % (0.0-6.0); HEMATOCRIT 25.4 % (34.2-44.1); HEMOGLOBIN 8.3 g/dL (12.0-16.0); LYMPHOCYTES # (AUTO) 1.8 (1.0-3.2); LYMPHOCYTES % 29.3 % (18.0-39.1); MEAN CORPUSCULAR HEMOGLOBIN 32.5 pg (28-32); MEAN CORPUSCULAR HGB CONC 32.7 g/dL (31-35); MEAN CORPUSCULAR VOLUME 99.6 fL (81-99); MONOCYTES # (AUTO) 0.6 (0.2-0.8); MONOCYTES % 9.2 % (4.4-11.3); NEUTROPHILS # (AUTO) 3.3 (2.1-6.9); NEUTROPHILS % 54.9 % (38.7-80.0); PLATELET COUNT 190 x10e3/uL (140-360); RED BLOOD COUNT 2.55 x10e6/uL (3.6-5.1); RED CELL DISTRIBUTION WIDTH 13.5 % (11.7-14.4)
[2020-11-18 06:51] LABS: ALBUMIN 2.7 g/dL (3.5-5.0); ALBUMIN/GLOBULIN RATIO 0.8 (0.8-2.0); ANION GAP 17.6 mmol/L (8-16); CALCIUM 8.4 mg/dL (8.4-10.2); CREATININE, SERUM 5.53 mg/dL (0.57-1.11); MAGNESIUM 2.7 MG/DL (1.3-2.1); PHOSPHORUS 5.2 MG/DL (2.3-4.7); POTASSIUM 4.6 mmol/L (3.5-5.1)
[2020-11-18] MEDS: INSULIN REGULAR, HUMAN 100 UNIT/1 ML 3ML VIAL SQ SCH ×2 (07:30→11:57)
[2020-11-18] MEDS: SEVELAMER CARBONATE 800 MG TAB PO SCH ×2 (07:58→11:57)
[2020-11-18] MEDS: CARVEDILOL 12.5 MG TAB PO SCH (07:58)
[2020-11-18] MEDS: ACYCLOVIR 200 MG CAP PO SCH (07:59)
[2020-11-18] MEDS: BENZONATATE 100 MG CAP PO SCH (07:59)
[2020-11-18] MEDS: AMLODIPINE BESYLATE 10 MG TAB PO SCH (07:59)
[2020-11-18] MEDS: LEVOTHYROXINE SODIUM 75 MCG TAB PO SCH (07:59)
[2020-11-18 08:15] VITALS: BP 166/85
[2020-11-18 08:33] VITALS: BP 166/85
[2020-11-18] MEDS: CHOLESTYRAMINE 4 GM PACKET PO SCH (10:00)
[2020-11-18 12:35] VITALS: BP 126/65
== END 2020-11-18 14:03 | disposition home or self-care (01) | DRG 280 ==
LOC: ER 18:02 → ERHOLD 20:31 → MED/SURG3 11-06 01:35
PROVIDERS: ADMIT Internal Medicine; ATTEND Internal Medicine
PROC: 4A023N7 Measurement of Cardiac Sampling and Pressure, Left Heart, Percutaneous Approach (ICD-10-PCS; principal; 2020-11-06)
PROC: B2111ZZ Fluoroscopy of Multiple Coronary Arteries using Low Osmolar Contrast (ICD-10-PCS; 2020-11-06)
PROC: B2151ZZ Fluoroscopy of Left Heart using Low Osmolar Contrast (ICD-10-PCS; 2020-11-06)
PROC: 5A1D70Z Performance of Urinary Filtration, Intermittent, Less than 6 Hours Per Day (ICD-10-PCS; 2020-11-06)
DX: I21.4 Non-ST elevation (NSTEMI) myocardial infarction (principal); N18.6 End stage renal disease; U07.1 COVID-19; I50.43 Acute on chronic combined systolic (congestive) and diastolic (congestive) heart failure; J18.9 Pneumonia, unspecified organism; J90 Pleural effusion, not elsewhere classified; I13.2 Hypertensive heart and chronic kidney disease with heart failure and with stage 5 chronic kidney disease, or end stage renal disease; Z99.2 Dependence on renal dialysis; Z20.822 Contact with and (suspected) exposure to COVID-19; F32.9 Major depressive disorder, single episode, unspecified; E78.5 Hyperlipidemia, unspecified; E83.39 Other disorders of phosphorus metabolism; B37.3 Candidiasis of vulva and vagina; Z68.33 Body mass index [BMI] 33.0-33.9, adult; E66.01 Morbid (severe) obesity due to excess calories; Y95 Nosocomial condition
CPT/HCPCS: 36415; 71045; 80048; 80053; 80061; 82550; 82553; 82948; 83735; 83880; 84100; 84484; 85025; 85610; 85730; 86704; 86706; 87340; 93005; 93458; 96372; 99152; 99153; 99284; J0360; J1815; J1817; J2001; J2250; J3010; J7030; J7050; Q9967; U0002

== ENCOUNTER 2020-12-11 21:59 | Observation (INO) | payer MEDICARE ==
[~2020-12-11] VITALS: Ht 162.6 cm; Wt 88.9 kg
[~2020-12-11 21:59] MED LIST changes: -HYDRALAZINE HCL50 MG; +HYDRALAZINE HCL50 MG PO
[2020-12-11] MEDS ORDERED: ASPIRIN 81 MG CHEW TAB PO ONE (22:15)
[2020-12-11] MEDS ORDERED: HYDRALAZINE HCL 20 MG/ML VIAL IV STA (22:20)
[2020-12-11 22:29] LABS: BASOPHILS # (AUTO) 0.1 (0.0-0.1); BASOPHILS % 0.7 % (0.0-1.0); EOSINOPHILS # (AUTO) 0.2 (0.0-0.4); EOSINOPHILS % 3.2 % (0.0-6.0); HEMATOCRIT 27.4 % (34.2-44.1); HEMOGLOBIN 8.7 g/dL (12.0-16.0); LYMPHOCYTES # (AUTO) 0.9 (1.0-3.2); MEAN CORPUSCULAR HEMOGLOBIN 32.3 pg (28-32); MEAN CORPUSCULAR HGB CONC 31.8 g/dL (31-35); MEAN CORPUSCULAR VOLUME 101.9 fL (81-99); MONOCYTES # (AUTO) 0.5 (0.2-0.8); MONOCYTES % 6.4 % (4.4-11.3); NEUTROPHILS # (AUTO) 5.4 (2.1-6.9); NEUTROPHILS % 76.1 % (38.7-80.0); PLATELET COUNT 221 x10e3/uL (140-360); RED BLOOD COUNT 2.69 x10e6/uL (3.6-5.1); RED CELL DISTRIBUTION WIDTH 13.3 % (11.7-14.4)
[2020-12-11 22:48] LABS: ALBUMIN 3.1 g/dL (3.5-5.0); ALBUMIN/GLOBULIN RATIO 0.8 (0.8-2.0); ANION GAP 18.9 mmol/L (8-16); CALCIUM 8.3 mg/dL (8.4-10.2); CREATININE, SERUM 5.01 mg/dL (0.57-1.11); POTASSIUM 3.9 mmol/L (3.5-5.1)
[2020-12-11 22:54] LABS: CREATINE KINASE MB 0.9 ng/mL (0-5.0)
[2020-12-11] MEDS ORDERED: SODIUM CHLORIDE 0.9% 50ML 50 ML ONE (23:59)
[2020-12-11] MEDS ORDERED: IOPAMIDOL 370 MG/ML 200 ML INFUS..BTL INJ ONE (23:59)
[2020-12-12] VITALS (7 sets, daily range): BP systolic 118–162; BP diastolic 49–92
[2020-12-12] MEDS ORDERED: INSULIN REGULAR, HUMAN 100 UNIT/1 ML 3ML VIAL SQ STA (02:33)
[2020-12-12] MEDS ORDERED: ONDANSETRON HCL INJ 2MG/ML 2ML 2 MG/ML VIAL IV PRN (04:00)
[2020-12-12] MEDS ORDERED: MORPHINE SULFATE INJ 4 MG/ML INJ 1ML IV PRN (04:00)
[2020-12-12] MEDS ORDERED: NIFEDIPINE ER60 MG PO (07:29)
[2020-12-12] MEDS ORDERED: VENTOLIN HFA18 GM INH (07:31)
[2020-12-12] MEDS ORDERED: ACETAMINOPHEN 325 MG TAB PO PRN (08:15)
[2020-12-12] MEDS ORDERED: HYDRALAZINE HCL 20 MG/ML VIAL IV PRN (08:15)
[2020-12-12] MEDS ORDERED: ACETAMINOPHEN/CODEINE 300MG - 30MG TAB PO PRN (08:15)
[2020-12-12] MEDS ORDERED: GABAPENTIN 400 MG CAP PO PRN (08:15)
[2020-12-12] MEDS ORDERED: ALBUTEROL SULFATE HFA 8GM INHALATION AEROSOL INH PRN (08:15)
[2020-12-12 08:58] LABS: INR 0.96; PROTHROMBIN TIME 13.3 seconds (11.9-14.5)
[2020-12-12 08:59] LABS: PARTIAL THROMBOPLASTIN TIME 28.9 seconds (23.8-35.5)
[2020-12-12] MEDS: CARVEDILOL 12.5 MG TAB PO SCH ×2 (09:00→17:00)
[2020-12-12 09:15] LABS: CHOL/HDL RATIO 2.7 (3.0-3.6)
[2020-12-12] MEDS ORDERED: NIFEDIPINE CR 30 MG TAB PO SCH (09:30)
[2020-12-12] MEDS: HYDRALAZINE HCL 100 MG TABLET PO SCH ×3 (09:30→21:00)
[2020-12-12] MEDS ORDERED: DEXTROSE 50% SYRINGE 50 ML IV PRN (09:30)
[2020-12-12 09:34] LABS: THYROID STIMULATING HORMONE 3.22 uIU/mL (0.350-4.940)
[2020-12-12] MEDS ORDERED: MORPHINE SULFATE INJ 2 MG/ML SYR IV PRN (12:00)
[2020-12-12] MEDS: INSULIN LISPRO 100 UNIT/1 ML 3ML VIAL SQ SCH ×4 (13:19→21:00)
[2020-12-12] MEDS ORDERED: SODIUM CHLORIDE 0.9% 1000ML 2,000 ML ONE (16:57)
[2020-12-12] MEDS ORDERED: MELATONIN 5 MG TABLET PO PRN (21:00)
[2020-12-12] MEDS ORDERED: INSULIN GLARGINE 100 UNITS/ML VIAL SQ SCH (21:00)
[2020-12-13] MEDS ORDERED: FAMOTIDINE 20 MG TAB PO SCH ×2 (06:00)
[2020-12-13] MEDS ORDERED: LEVOTHYROXINE SODIUM 75 MCG TAB PO SCH (06:00)
== END 2020-12-12 23:01 | disposition home or self-care (01) ==
LOC: ER 22:27 → ERHOLD 12-12 03:49 → MED/SURG3 12-12 07:27
PROVIDERS: ADMIT Internal Medicine; ATTEND Internal Medicine
DX: E87.70 Fluid overload, unspecified (principal); R07.9 Chest pain, unspecified; I16.0 Hypertensive urgency; U07.1 COVID-19; E11.22 Type 2 diabetes mellitus with diabetic chronic kidney disease; N18.6 End stage renal disease; I13.2 Hypertensive heart and chronic kidney disease with heart failure and with stage 5 chronic kidney disease, or end stage renal disease; I50.9 Heart failure, unspecified; Z99.2 Dependence on renal dialysis; Z98.84 Bariatric surgery status; Z88.1 Allergy status to other antibiotic agents; Z88.0 Allergy status to penicillin; Z88.8 Allergy status to other drugs, medicaments and biological substances; Z91.018 Allergy to other foods; I25.10 Atherosclerotic heart disease of native coronary artery without angina pectoris; Z86.16 Personal history of COVID-19; E03.9 Hypothyroidism, unspecified; D63.1 Anemia in chronic kidney disease; Z79.4 Long term (current) use of insulin
CPT/HCPCS: 32555; 36415 ×2; 70450; 71045 ×2; 71260; 74470; 80053; 80061; 82550 ×2; 82553 ×2; 82948; 83036; 83880; 84443; 84484 ×2; 85025; 85379; 85610; 85730; 90935; 93005; 93306; 99284; G0378; J0360; J7030; Q9967; U0002

== ENCOUNTER 2021-03-31 23:17 | Emergency (ER) | payer MEDICARE ==
[~2021-03-31] VITALS: Ht 162.6 cm; Wt 88.9 kg
[~2021-03-31 23:17] MED LIST changes: +NIFEDIPINE ER60 MG PO; +VENTOLIN HFA18 GM INH
[2021-04-01] MEDS ORDERED: HYDROCODONE/APAP 10MG-325MG TAB PO ONE (01:30)
[2021-04-01 01:32] LABS: BASOPHILS % 0.4 % (0.0-1.0); EOSINOPHILS # (AUTO) 0.4 (0.0-0.4); EOSINOPHILS % 3.6 % (0.0-6.0); HEMATOCRIT 32.2 % (34.2-44.1); HEMOGLOBIN 10.3 g/dL (12.0-16.0); LYMPHOCYTES # (AUTO) 0.7 (1.0-3.2); LYMPHOCYTES % 7.3 % (18.0-39.1); MEAN CORPUSCULAR HEMOGLOBIN 31.7 pg (28-32); MEAN CORPUSCULAR VOLUME 99.1 fL (81-99); MONOCYTES # (AUTO) 0.7 (0.2-0.8); MONOCYTES % 6.9 % (4.4-11.3); NEUTROPHILS # (AUTO) 8.2 (2.1-6.9); NEUTROPHILS % 81.2 % (38.7-80.0); PLATELET COUNT 270 x10e3/uL (140-360); RED BLOOD COUNT 3.25 x10e6/uL (3.6-5.1); RED CELL DISTRIBUTION WIDTH 13.5 % (11.7-14.4)
[2021-04-01 01:46] LABS: ALBUMIN 3.1 g/dL (3.5-5.0); ALBUMIN/GLOBULIN RATIO 0.8 (0.8-2.0); CALCIUM 8.1 mg/dL (8.4-10.2); CREATININE, SERUM 6.79 mg/dL (0.57-1.11)
[2021-04-01 01:52] LABS: CREATINE KINASE MB 2.4 ng/mL (0-5.0)
[2021-04-01] MEDS ORDERED: INSULIN REGULAR, HUMAN 3ML VL 100 UNIT in SODIUM CHLORIDE 0.9% 100 ML 99 ML IV SCH ×2 (02:45)
[2021-04-01 03:36] LABS: ABG HCO3 27 mmol/L (22-26); ABG PCO2 37 mmHg (35-45); ABG PH 7.46 (7.35-7.45); ABG PO2 78 mmHg (80-105); ABG TCO2 28
[2021-04-01] MEDS ORDERED: INSULIN REGULAR, HUMAN 100 UNIT/1 ML 3ML VIAL ONE (03:50)
[2021-04-01] MEDS ORDERED: SODIUM CHLORIDE 0.9% 100 ML ONE (03:51)
[2021-04-01] MEDS ORDERED: INSULIN REGULAR, HUMAN 100 UNIT/1 ML 3ML VIAL IV ONE (04:00)
[2021-04-01 05:16] LABS: ANION GAP 24.6 mmol/L (8-16); CALCIUM 8.3 mg/dL (8.4-10.2); CREATININE, SERUM 7.21 mg/dL (0.57-1.11); POTASSIUM 3.6 mmol/L (3.5-5.1)
[2021-04-01 06:10] LABS: CREATINE KINASE MB 2.3 ng/mL (0-5.0)
== END 2021-04-01 07:30 | disposition other institution (70) ==
LOC: ER 04-01 01:24
DX: R10.32 Left lower quadrant pain (principal); R77.8 Other specified abnormalities of plasma proteins; E11.65 Type 2 diabetes mellitus with hyperglycemia; I12.0 Hypertensive chronic kidney disease with stage 5 chronic kidney disease or end stage renal disease; E11.22 Type 2 diabetes mellitus with diabetic chronic kidney disease; N18.6 End stage renal disease; Z99.2 Dependence on renal dialysis; I50.9 Heart failure, unspecified; Z20.822 Contact with and (suspected) exposure to COVID-19; Z98.84 Bariatric surgery status
CPT/HCPCS: 36415; 36600; 74176; 80048; 80053; 82550; 82553; 82805; 82948; 83690; 83880; 84484; 85025; 93005; 99284; J1817; J7050; U0002

== ENCOUNTER 2021-06-04 20:32 | Emergency (ER) | payer MEDICARE ==
[~2021-06-04] VITALS: Ht 162.6 cm; Wt 88.9 kg
[2021-06-04 20:59] LABS: BASOPHILS # (AUTO) 0.1 (0.0-0.1); BASOPHILS % 0.5 % (0.0-1.0); EOSINOPHILS # (AUTO) 0.2 (0.0-0.4); HEMATOCRIT 32.2 % (34.2-44.1); LYMPHOCYTES # (AUTO) 0.7 (1.0-3.2); LYMPHOCYTES % 7.3 % (18.0-39.1); MEAN CORPUSCULAR HEMOGLOBIN 31.3 pg (28-32); MEAN CORPUSCULAR HGB CONC 31.1 g/dL (31-35); MEAN CORPUSCULAR VOLUME 100.9 fL (81-99); MONOCYTES # (AUTO) 0.5 (0.2-0.8); MONOCYTES % 5.1 % (4.4-11.3); NEUTROPHILS % 84.6 % (38.7-80.0); PLATELET COUNT 256 x10e3/uL (140-360); RED BLOOD COUNT 3.19 x10e6/uL (3.6-5.1); RED CELL DISTRIBUTION WIDTH 14.5 % (11.7-14.4)
[2021-06-04 21:17] LABS: ALBUMIN 3.3 g/dL (3.5-5.0); ALBUMIN/GLOBULIN RATIO 0.8 (0.8-2.0); ANION GAP 20.7 mmol/L (8-16); CALCIUM 8.9 mg/dL (8.4-10.2); CREATININE, SERUM 4.81 mg/dL (0.57-1.11); POTASSIUM 3.7 mmol/L (3.5-5.1)
[2021-06-04 21:23] LABS: CREATINE KINASE MB 4.5 ng/mL (0-5.0)
== END 2021-06-05 | disposition home or self-care (01) ==
LOC: ER 20:48
DX: R42 Dizziness and giddiness (principal); T40.425A Adverse effect of tramadol, initial encounter; I12.0 Hypertensive chronic kidney disease with stage 5 chronic kidney disease or end stage renal disease; E11.22 Type 2 diabetes mellitus with diabetic chronic kidney disease; N18.6 End stage renal disease; Z99.2 Dependence on renal dialysis; I50.9 Heart failure, unspecified; R94.31 Abnormal electrocardiogram [ECG] [EKG]
CPT/HCPCS: 36415; 70450; 80053; 82550; 82553; 84484; 85025; 93005; 99283

== ENCOUNTER 2021-08-14 06:26 | Emergency (ER) | payer MEDICARE ==
[~2021-08-14] VITALS: Ht 162.6 cm; Wt 88.9 kg
[2021-08-14 07:29] LABS: BASOPHILS # (AUTO) 0.1 (0.0-0.1); BASOPHILS % 0.8 % (0.0-1.0); EOSINOPHILS # (AUTO) 0.2 (0.0-0.4); EOSINOPHILS % 2.7 % (0.0-6.0); HEMATOCRIT 28.9 % (34.2-44.1); HEMOGLOBIN 9.3 g/dL (12.0-16.0); LYMPHOCYTES # (AUTO) 0.7 (1.0-3.2); LYMPHOCYTES % 11.3 % (18.0-39.1); MEAN CORPUSCULAR HEMOGLOBIN 31.8 pg (28-32); MEAN CORPUSCULAR HGB CONC 32.2 g/dL (31-35); MONOCYTES # (AUTO) 0.5 (0.2-0.8); MONOCYTES % 7.4 % (4.4-11.3); NEUTROPHILS # (AUTO) 4.9 (2.1-6.9); NEUTROPHILS % 77.3 % (38.7-80.0); PLATELET COUNT 163 x10e3/uL (140-360); RED BLOOD COUNT 2.92 x10e6/uL (3.6-5.1); RED CELL DISTRIBUTION WIDTH 14.7 % (11.7-14.4)
[2021-08-14 07:53] LABS: ALBUMIN/GLOBULIN RATIO 0.9 (0.8-2.0); ANION GAP 20.2 mmol/L (8-16); CALCIUM 8.3 mg/dL (8.4-10.2); CREATININE, SERUM 7.23 mg/dL (0.57-1.11); POTASSIUM 4.2 mmol/L (3.5-5.1)
[2021-08-14 10:07] VITALS: BP 130/73
[2021-08-15] MEDS ORDERED: BACITRACIN ZINC 15 GM OINT TOP SCH (09:00)
== END 2021-08-14 10:10 | disposition home or self-care (01) ==
LOC: ER 06:44
DX: R42 Dizziness and giddiness (principal); I12.0 Hypertensive chronic kidney disease with stage 5 chronic kidney disease or end stage renal disease; E11.22 Type 2 diabetes mellitus with diabetic chronic kidney disease; N18.6 End stage renal disease; Z99.2 Dependence on renal dialysis; E87.70 Fluid overload, unspecified; R10.30 Lower abdominal pain, unspecified; Z98.84 Bariatric surgery status
CPT/HCPCS: 36415; 71045; 74176; 80053; 80329; 84484; 85025; 93005; 99251; 99284

== ENCOUNTER 2021-10-09 11:33 | Inpatient (IN) | payer MEDICARE ==
[~2021-10-09] VITALS: Ht 162.6 cm; Wt 90.8 kg
[2021-10-09] MEDS ORDERED: ACETAMINOPHEN 325 MG TAB PO STA (11:43)
[2021-10-09] MEDS ORDERED: Clindamycin INJ 600 MG 600 MG in SODIUM CHLORIDE 0.9% 50ML 50 ML IV STA (12:02)
[2021-10-09 13:16] LABS: BASOPHILS % 0.5 % (0.0-1.0); EOSINOPHILS # (AUTO) 0.1 (0.0-0.4); EOSINOPHILS % 1.5 % (0.0-6.0); HEMOGLOBIN 10.4 g/dL (12.0-16.0); LYMPHOCYTES # (AUTO) 0.6 (1.0-3.2); LYMPHOCYTES % 6.8 % (18.0-39.1); MEAN CORPUSCULAR HEMOGLOBIN 31.6 pg (28-32); MEAN CORPUSCULAR HGB CONC 31.5 g/dL (31-35); MEAN CORPUSCULAR VOLUME 100.3 fL (81-99); MONOCYTES # (AUTO) 0.5 (0.2-0.8); MONOCYTES % 5.4 % (4.4-11.3); NEUTROPHILS # (AUTO) 7.4 (2.1-6.9); NEUTROPHILS % 85.1 % (38.7-80.0); PLATELET COUNT 237 x10e3/uL (140-360); RED BLOOD COUNT 3.29 x10e6/uL (3.6-5.1); RED CELL DISTRIBUTION WIDTH 13.6 % (11.7-14.4)
[2021-10-09 13:30] LABS: INR 0.96; PROTHROMBIN TIME 13.6 seconds (11.9-14.5)
[2021-10-09 13:31] LABS: PARTIAL THROMBOPLASTIN TIME 29.2 seconds (23.8-35.5)
[2021-10-09 13:41] LABS: ALBUMIN 2.6 g/dL (3.5-5.0); ALBUMIN/GLOBULIN RATIO 0.6 (0.8-2.0); ANION GAP 24.7 mmol/L (8-16); CALCIUM 8.8 mg/dL (8.4-10.2); CREATININE, SERUM 4.3 mg/dL (0.57-1.11); POTASSIUM 3.7 mmol/L (3.5-5.1)
[2021-10-09] MEDS ORDERED: SODIUM CHLORIDE 0.9% 1000ML 1,000 ML IV STA (13:58)
[2021-10-09] MEDS ORDERED: IOPAMIDOL 370 MG/ML 200 ML INFUS..BTL INJ ONE (15:55)
[2021-10-09] MEDS ORDERED: SODIUM CHLORIDE 0.9% 50ML 50 ML ONE (15:55)
[2021-10-09] MEDS: SODIUM CHLORIDE 0.9% 1000ML 1,000 ML IV SCH ×2 (16:16→22:00)
[2021-10-09 16:47] VITALS: BP 153/80
[2021-10-09] MEDS ORDERED: ALBUTEROL SULFATE HFA 8GM INHALATION AEROSOL INH PRN ×2 (17:15→17:45)
[2021-10-09] MEDS ORDERED: GABAPENTIN 400 MG CAP PO PRN (17:15)
[2021-10-09] MEDS ORDERED: DEXTROSE 50% SYRINGE 50 ML IV PRN (17:15)
[2021-10-09 17:35] VITALS: BP 153/80
[2021-10-09] MEDS: CARVEDILOL 12.5 MG TAB PO SCH (18:25)
[2021-10-09 20:00] VITALS: BP 102/53
[2021-10-09 20:10] VITALS: BP 102/53
[2021-10-09] MEDS: HEPARIN SOD (PORCINE) 5,000 UNIT/ML VIAL SC SCH (21:00)
[2021-10-09] MEDS ORDERED: INSULIN GLARGINE SC SCH (21:00)
[2021-10-09] MEDS ORDERED: NON-FORMULARY MEDICATION (Hydralazine Hcl* 50 MG) PO SCH (21:00)
[2021-10-09] MEDS: INSULIN GLARGINE 100 UNITS/ML VIAL SQ SCH (21:09)
[2021-10-09] MEDS: INSULIN REGULAR, HUMAN 100 UNIT/1 ML SQ SCH (21:10)
[2021-10-09] MEDS: HYDRALAZINE HCL 25 MG TAB PO SCH (21:11)
[2021-10-09] MEDS: HYDROCODONE/APAP 5MG-325MG TAB PO PRN (22:11)
[2021-10-10] VITALS (8 sets, daily range): BP systolic 94–119; BP diastolic 52–64
[2021-10-10] MEDS: LEVOTHYROXINE SODIUM 75 MCG TAB PO SCH (05:33)
[2021-10-10 06:36] LABS: ANION GAP 26.9 mmol/L (8-16); CALCIUM 8.4 mg/dL (8.4-10.2); CREATININE, SERUM 4.94 mg/dL (0.57-1.11); POTASSIUM 3.9 mmol/L (3.5-5.1)
[2021-10-10 07:00] LABS: CHOL/HDL RATIO 2.9 (3.0-3.6)
[2021-10-10] MEDS: INSULIN REGULAR, HUMAN 100 UNIT/1 ML SQ SCH ×4 (07:30→21:13)
[2021-10-10] MEDS ORDERED: NON-FORMULARY MEDICATION (Nifedipine (Nifedipine Er) 60 MG) PO SCH (09:00)
[2021-10-10] MEDS: NIFEDIPINE CR 30 MG TAB PO SCH (09:00)
[2021-10-10] MEDS: CARVEDILOL 12.5 MG TAB PO SCH ×2 (09:00→16:21)
[2021-10-10] MEDS: HYDRALAZINE HCL 25 MG TAB PO SCH ×3 (09:00→21:55)
[2021-10-10 09:04] LABS: BASOPHILS # (AUTO) 0.1 (0.0-0.1); BASOPHILS % 0.8 % (0.0-1.0); EOSINOPHILS # (AUTO) 0.3 (0.0-0.4); EOSINOPHILS % 3.1 % (0.0-6.0); HEMATOCRIT 30.3 % (34.2-44.1); HEMOGLOBIN 9.4 g/dL (12.0-16.0); LYMPHOCYTES # (AUTO) 0.9 (1.0-3.2); LYMPHOCYTES % 10.2 % (18.0-39.1); MEAN CORPUSCULAR HEMOGLOBIN 32.1 pg (28-32); MEAN CORPUSCULAR VOLUME 103.4 fL (81-99); MONOCYTES # (AUTO) 0.7 (0.2-0.8); MONOCYTES % 7.5 % (4.4-11.3); PLATELET COUNT 217 x10e3/uL (140-360); RED BLOOD COUNT 2.93 x10e6/uL (3.6-5.1); RED CELL DISTRIBUTION WIDTH 13.9 % (11.7-14.4)
[2021-10-10] MEDS: HEPARIN SOD (PORCINE) 5,000 UNIT/ML VIAL SC SCH ×2 (10:30→21:13)
[2021-10-10] MEDS: PANTOPRAZOLE SOD 40 MG TABEC PO SCH (10:55)
[2021-10-10] MEDS: HYDROCODONE/APAP 5MG-325MG TAB PO PRN ×3 (10:59→21:55)
[2021-10-10] MEDS ORDERED: SODIUM CHLORIDE 0.9% 1000ML 1,000 ML ONE (17:00)
[2021-10-10] MEDS ORDERED: BISACODYL 10 MG SUPP PR ONE (17:30)
[2021-10-10] MEDS ORDERED: HYDRALAZINE HCL 20 MG/ML VIAL IV PRN (17:30)
[2021-10-10] MEDS: POLYETHYLENE GLYCOL 3350 17 GM PACK PO SCH (18:38)
[2021-10-10] MEDS: DOCUSATE SODIUM 100 MG CAP PO SCH (18:38)
[2021-10-10] MEDS: INSULIN GLARGINE 100 UNITS/ML VIAL SQ SCH (21:14)
[2021-10-11] VITALS (8 sets, daily range): BP systolic 94–147; BP diastolic 54–80
[2021-10-11] MEDS: HYDROCODONE/APAP 5MG-325MG TAB PO PRN ×4 (02:01→17:39)
[2021-10-11] MEDS: ACETAMINOPHEN 325 MG TAB PO PRN ×3 (03:57→20:53)
[2021-10-11] MEDS: LEVOTHYROXINE SODIUM 75 MCG TAB PO SCH (06:02)
[2021-10-11 07:09] LABS: BASOPHILS # (AUTO) 0.1 (0.0-0.1); BASOPHILS % 0.8 % (0.0-1.0); EOSINOPHILS # (AUTO) 0.2 (0.0-0.4); EOSINOPHILS % 2.1 % (0.0-6.0); HEMOGLOBIN 9.9 g/dL (12.0-16.0); LYMPHOCYTES # (AUTO) 1.1 (1.0-3.2); LYMPHOCYTES % 11.2 % (18.0-39.1); MEAN CORPUSCULAR HEMOGLOBIN 32.1 pg (28-32); MEAN CORPUSCULAR VOLUME 107.1 fL (81-99); MONOCYTES # (AUTO) 0.7 (0.2-0.8); MONOCYTES % 7.6 % (4.4-11.3); NEUTROPHILS # (AUTO) 7.4 (2.1-6.9); NEUTROPHILS % 77.8 % (38.7-80.0); PLATELET COUNT 230 x10e3/uL (140-360); RED BLOOD COUNT 3.08 x10e6/uL (3.6-5.1); RED CELL DISTRIBUTION WIDTH 14.2 % (11.7-14.4)
[2021-10-11 07:29] LABS: ALBUMIN 2.4 g/dL (3.5-5.0); ALBUMIN/GLOBULIN RATIO 0.7 (0.8-2.0); ANION GAP 26.7 mmol/L (8-16); CALCIUM 8.8 mg/dL (8.4-10.2); CREATININE, SERUM 5.92 mg/dL (0.57-1.11); POTASSIUM 4.7 mmol/L (3.5-5.1)
[2021-10-11] MEDS: INSULIN REGULAR, HUMAN 100 UNIT/1 ML SQ SCH ×4 (07:30→20:38)
[2021-10-11 08:05] LABS: PLATELET ESTIMATE ADEQUATE; PLATELET MORPHOLOGY COMMENT NORMAL
[2021-10-11 08:06] LABS: RBC MORPHOLOGY COMMENT NORMAL
[2021-10-11] MEDS: HYDRALAZINE HCL 25 MG TAB PO SCH ×3 (09:00→20:55)
[2021-10-11] MEDS: POLYETHYLENE GLYCOL 3350 17 GM PACK PO SCH ×2 (09:00→16:22)
[2021-10-11] MEDS: CARVEDILOL 12.5 MG TAB PO SCH ×2 (09:00→17:41)
[2021-10-11] MEDS: HEPARIN SOD (PORCINE) 5,000 UNIT/ML VIAL SC SCH ×2 (10:30→20:44)
[2021-10-11] MEDS: PANTOPRAZOLE SOD 40 MG TABEC PO SCH (11:40)
[2021-10-11] MEDS: DOCUSATE SODIUM 100 MG CAP PO SCH ×2 (11:41→17:39)
[2021-10-11] MEDS: NIFEDIPINE CR 30 MG TAB PO SCH (11:42)
[2021-10-11] MEDS: ESCITALOPRAM OXALATE 10 MG TAB PO SCH (17:40)
[2021-10-11] MEDS: INSULIN GLARGINE 100 UNITS/ML VIAL SQ SCH (20:38)
[2021-10-12] VITALS (8 sets, daily range): BP systolic 83–112; BP diastolic 52–65
[2021-10-12] MEDS ORDERED: SODIUM CHLORIDE 0.9% 1000ML 1,000 ML IV ONE (00:15)
[2021-10-12] MEDS: ACETAMINOPHEN 325 MG TAB PO PRN ×2 (02:05→12:26)
[2021-10-12] MEDS: LEVOTHYROXINE SODIUM 75 MCG TAB PO SCH (05:22)
[2021-10-12 07:20] LABS: ALBUMIN 2.2 g/dL (3.5-5.0); ALBUMIN/GLOBULIN RATIO 0.6 (0.8-2.0); ANION GAP 28.8 mmol/L (8-16); CALCIUM 8.4 mg/dL (8.4-10.2); CREATININE, SERUM 6.51 mg/dL (0.57-1.11); POTASSIUM 4.8 mmol/L (3.5-5.1)
[2021-10-12] MEDS: INSULIN REGULAR, HUMAN 100 UNIT/1 ML SQ SCH ×4 (08:30→21:00)
[2021-10-12] MEDS: HEPARIN SOD (PORCINE) 5,000 UNIT/ML VIAL SC SCH ×2 (08:30→21:00)
[2021-10-12] MEDS: PANTOPRAZOLE SOD 40 MG TABEC PO SCH (08:43)
[2021-10-12] MEDS: ESCITALOPRAM OXALATE 10 MG TAB PO SCH (08:43)
[2021-10-12] MEDS: POLYETHYLENE GLYCOL 3350 17 GM PACK PO SCH ×2 (08:49→17:00)
[2021-10-12] MEDS: CARVEDILOL 12.5 MG TAB PO SCH ×2 (08:49→16:25)
[2021-10-12] MEDS: DOCUSATE SODIUM 100 MG CAP PO SCH ×2 (08:49→17:00)
[2021-10-12] MEDS: HYDRALAZINE HCL 25 MG TAB PO SCH ×3 (08:49→21:00)
[2021-10-12] MEDS ORDERED: SODIUM CHLORIDE 0.9% 250ML 250 ML ONE (09:34)
[2021-10-12] MEDS: Clindamycin INJ 600 MG 600 MG in SODIUM CHLORIDE 0.9% 50ML 50 ML IV SCH ×3 (10:12→17:22)
[2021-10-12] MEDS ORDERED: CEPACOL SORE THROAT LOZENGES PO ONE (12:45)
[2021-10-12] MEDS ORDERED: CEPACOL SORE THROAT LOZENGES PO PRN (12:45)
[2021-10-12] MEDS: MIDODRINE HCL 5 MG TABLET PO SCH ×2 (12:55→17:22)
[2021-10-12] MEDS ORDERED: ALBUMIN 25% 12.5GM 50ML 100 ML IV ONE (13:49)
[2021-10-12] MEDS ORDERED: SODIUM CHLORIDE 0.9% 1000ML 2,000 ML ONE (13:49)
[2021-10-12] MEDS: HYDROCODONE/APAP 5MG-325MG TAB PO PRN (17:31)
[2021-10-12] MEDS: INSULIN GLARGINE 100 UNITS/ML VIAL SQ SCH (21:00)
[2021-10-13] MEDS ORDERED: SODIUM CHLORIDE 0.9% 50ML 50 ML ONE (01:13)
[2021-10-13 05:02] VITALS: BP 100/62
[2021-10-13] MEDS: LEVOTHYROXINE SODIUM 75 MCG TAB PO SCH (05:23)
[2021-10-13] MEDS: Clindamycin INJ 600 MG 600 MG in SODIUM CHLORIDE 0.9% 50ML 50 ML IV SCH ×5 (05:23→20:54)
[2021-10-13] MEDS: INSULIN REGULAR, HUMAN 100 UNIT/1 ML SQ SCH ×4 (07:30→20:32)
[2021-10-13 07:37] LABS: BASOPHILS # (AUTO) 0.1 (0.0-0.1); BASOPHILS % 0.5 % (0.0-1.0); EOSINOPHILS # (AUTO) 0.1 (0.0-0.4); EOSINOPHILS % 0.7 % (0.0-6.0); HEMATOCRIT 32.6 % (34.2-44.1); HEMOGLOBIN 10.2 g/dL (12.0-16.0); LYMPHOCYTES # (AUTO) 0.6 (1.0-3.2); LYMPHOCYTES % 5.3 % (18.0-39.1); MEAN CORPUSCULAR HEMOGLOBIN 32.4 pg (28-32); MEAN CORPUSCULAR HGB CONC 31.3 g/dL (31-35); MEAN CORPUSCULAR VOLUME 103.5 fL (81-99); MONOCYTES # (AUTO) 0.6 (0.2-0.8); MONOCYTES % 5.8 % (4.4-11.3); NEUTROPHILS # (AUTO) 9.5 (2.1-6.9); NEUTROPHILS % 87.1 % (38.7-80.0); PLATELET COUNT 239 x10e3/uL (140-360); RED BLOOD COUNT 3.15 x10e6/uL (3.6-5.1)
[2021-10-13 08:00] VITALS: BP 81/50
[2021-10-13 08:07] LABS: ANION GAP 28.4 mmol/L (8-16); CALCIUM 8.8 mg/dL (8.4-10.2); CREATININE, SERUM 6.31 mg/dL (0.57-1.11); POTASSIUM 5.4 mmol/L (3.5-5.1)
[2021-10-13 08:20] VITALS: BP 81/50
[2021-10-13] MEDS: MIDODRINE HCL 5 MG TABLET PO SCH ×3 (08:40→16:07)
[2021-10-13] MEDS: DOCUSATE SODIUM 100 MG CAP PO SCH ×2 (08:40→17:00)
[2021-10-13] MEDS: ESCITALOPRAM OXALATE 10 MG TAB PO SCH (08:44)
[2021-10-13] MEDS: POLYETHYLENE GLYCOL 3350 17 GM PACK PO SCH ×2 (08:44→17:00)
[2021-10-13] MEDS: PANTOPRAZOLE SOD 40 MG TABEC PO SCH (08:47)
[2021-10-13] MEDS: HYDRALAZINE HCL 25 MG TAB PO SCH (09:00)
[2021-10-13] MEDS: HEPARIN SOD (PORCINE) 5,000 UNIT/ML VIAL SC SCH ×2 (09:00→20:55)
[2021-10-13] MEDS: CARVEDILOL 12.5 MG TAB PO SCH (09:00)
[2021-10-13] MEDS ORDERED: SODIUM CHLORIDE 0.9% 1000ML 1,000 ML ONE (09:59)
[2021-10-13] MEDS ORDERED: ALBUMIN 25% 12.5GM 0.25 GM/ML BTL IV PRN (10:00)
[2021-10-13] MEDS ORDERED: SODIUM CHLORIDE 0.9% 1000ML 2,000 ML IV PRN (10:00)
[2021-10-13] MEDS ORDERED: MANNITOL 25% 12.5GM/50 ML VIAL IV PRN (10:00)
[2021-10-13] MEDS ORDERED: SODIUM CHLORIDE 0.9% 250ML 750 ML IV PRN (10:00)
[2021-10-13 11:59] VITALS: BP 86/45
[2021-10-13] MEDS: HYDROCODONE/APAP 5MG-325MG TAB PO PRN (13:05)
[2021-10-13 19:55] VITALS: BP 128/64
[2021-10-13 20:04] VITALS: BP 128/64
[2021-10-13] MEDS: ACETAMINOPHEN 325 MG TAB PO PRN (20:57)
[2021-10-14] MEDS: Clindamycin INJ 600 MG 600 MG in SODIUM CHLORIDE 0.9% 50ML 50 ML IV SCH ×4 (03:07→20:22)
[2021-10-14 04:00] VITALS: BP 121/66
[2021-10-14 05:02] LABS: BASOPHILS # (AUTO) 0.1 (0.0-0.1); BASOPHILS % 0.6 % (0.0-1.0); EOSINOPHILS # (AUTO) 0.3 (0.0-0.4); EOSINOPHILS % 2.5 % (0.0-6.0); HEMATOCRIT 31.3 % (34.2-44.1); HEMOGLOBIN 9.6 g/dL (12.0-16.0); LYMPHOCYTES % 9.3 % (18.0-39.1); MEAN CORPUSCULAR HEMOGLOBIN 32.1 pg (28-32); MEAN CORPUSCULAR HGB CONC 30.7 g/dL (31-35); MEAN CORPUSCULAR VOLUME 104.7 fL (81-99); MONOCYTES # (AUTO) 0.9 (0.2-0.8); MONOCYTES % 8.7 % (4.4-11.3); NEUTROPHILS # (AUTO) 8.4 (2.1-6.9); NEUTROPHILS % 78.3 % (38.7-80.0); PLATELET COUNT 262 x10e3/uL (140-360); RED BLOOD COUNT 2.99 x10e6/uL (3.6-5.1); RED CELL DISTRIBUTION WIDTH 14.7 % (11.7-14.4)
[2021-10-14] MEDS: LEVOTHYROXINE SODIUM 75 MCG TAB PO SCH (05:07)
[2021-10-14 05:31] LABS: ANION GAP 21.5 mmol/L (8-16); CALCIUM 8.6 mg/dL (8.4-10.2); CREATININE, SERUM 4.59 mg/dL (0.57-1.11); POTASSIUM 4.5 mmol/L (3.5-5.1)
[2021-10-14] MEDS: PANTOPRAZOLE SOD 40 MG TABEC PO SCH (07:30)
[2021-10-14] MEDS: INSULIN REGULAR, HUMAN 100 UNIT/1 ML SQ SCH ×4 (07:30→20:22)
[2021-10-14] MEDS: MIDODRINE HCL 5 MG TABLET PO SCH ×3 (08:00→16:28)
[2021-10-14 09:00] VITALS: BP 121/66
[2021-10-14] MEDS: POLYETHYLENE GLYCOL 3350 17 GM PACK PO SCH ×2 (09:00→16:28)
[2021-10-14] MEDS: HEPARIN SOD (PORCINE) 5,000 UNIT/ML VIAL SC SCH ×2 (09:00→20:22)
[2021-10-14] MEDS: DOCUSATE SODIUM 100 MG CAP PO SCH ×2 (09:00→16:28)
[2021-10-14] MEDS ORDERED: DEXTROSE 5% 250ML 250 ML IV ONE (09:12)
[2021-10-14] MEDS ORDERED: LIDOCAINE HCL 1% LOCAL INJ 20 ML VIAL ONE (09:20)
[2021-10-14] MEDS ORDERED: CLINDAMYCIN 600MG / 50ML 50 ML IV ONE (10:03)
[2021-10-14] MEDS: ESCITALOPRAM OXALATE 10 MG TAB PO SCH (11:41)
[2021-10-14] MEDS: HYDROCODONE/APAP 5MG-325MG TAB PO PRN ×2 (12:24→17:00)
[2021-10-14] MEDS ORDERED: MIDAZOLAM HCL 2 MG/2 ML VIAL ONE (12:36)
[2021-10-14] MEDS ORDERED: FENTANYL CITRATE/PF 100MCG/2 ML INJ ONE (12:36)
[2021-10-14] MEDS: ONDANSETRON HCL INJ 2MG/ML 2ML 2 MG/ML VIAL IV PRN (15:12)
[2021-10-14] MEDS ORDERED: SEVOFLURANE INHAL SOLN 250 ML PEN BTL ONE (19:31)
[2021-10-14] MEDS ORDERED: LIDOCAINE HCL 2% LOCAL INJ 5 ML SDV VIAL INJ ONE (19:31)
[2021-10-14] MEDS ORDERED: ONDANSETRON HCL INJ 2MG/ML 2ML 2 MG/ML VIAL ONE (19:31)
[2021-10-14] MEDS ORDERED: PROPOFOL IV EMULSION 10 MG/ML 20 ML VIAL ONE (19:31)
[2021-10-14] MEDS ORDERED: DEXAMETHASONE SOD PHOS INJ 4 MG/ML SDV ONE (19:31)
[2021-10-14] MEDS ORDERED: POVIDONE IODINE 0.05% 0.05 % ML PO ONE (19:31)
[2021-10-14 19:56] VITALS: BP 122/61
[2021-10-14 20:08] VITALS: BP 122/61
[2021-10-14] MEDS: ACETAMINOPHEN 325 MG TAB PO PRN (20:23)
[2021-10-14 23:56] VITALS: BP 121/56
[2021-10-15] MEDS: Clindamycin INJ 600 MG 600 MG in SODIUM CHLORIDE 0.9% 50ML 50 ML IV SCH ×2 (01:21→08:00)
[2021-10-15] MEDS: ONDANSETRON HCL INJ 2MG/ML 2ML 2 MG/ML VIAL IV PRN ×2 (02:21→15:55)
[2021-10-15] MEDS: LEVOTHYROXINE SODIUM 75 MCG TAB PO SCH (05:13)
[2021-10-15 05:30] VITALS: BP 115/57
[2021-10-15 06:15] LABS: BASOPHILS % 0.2 % (0.0-1.0); EOSINOPHILS # (AUTO) 0.1 (0.0-0.4); EOSINOPHILS % 0.6 % (0.0-6.0); HEMATOCRIT 32.2 % (34.2-44.1); HEMOGLOBIN 10.1 g/dL (12.0-16.0); LYMPHOCYTES # (AUTO) 0.9 (1.0-3.2); LYMPHOCYTES % 7.5 % (18.0-39.1); MEAN CORPUSCULAR HEMOGLOBIN 32.8 pg (28-32); MEAN CORPUSCULAR HGB CONC 31.4 g/dL (31-35); MEAN CORPUSCULAR VOLUME 104.5 fL (81-99); MONOCYTES % 7.9 % (4.4-11.3); NEUTROPHILS # (AUTO) 10.3 (2.1-6.9); NEUTROPHILS % 82.8 % (38.7-80.0); PLATELET COUNT 260 x10e3/uL (140-360); RED BLOOD COUNT 3.08 x10e6/uL (3.6-5.1); RED CELL DISTRIBUTION WIDTH 14.6 % (11.7-14.4)
[2021-10-15 06:37] LABS: ANION GAP 25.6 mmol/L (8-16); CALCIUM 8.9 mg/dL (8.4-10.2); CREATININE, SERUM 5.22 mg/dL (0.57-1.11); POTASSIUM 5.6 mmol/L (3.5-5.1)
[2021-10-15] MEDS: PANTOPRAZOLE SOD 40 MG TABEC PO SCH (07:30)
[2021-10-15] MEDS: INSULIN REGULAR, HUMAN 100 UNIT/1 ML SQ SCH ×4 (07:30→20:29)
[2021-10-15] MEDS: HYDROCODONE/APAP 5MG-325MG TAB PO PRN ×2 (07:33→13:40)
[2021-10-15] MEDS: MIDODRINE HCL 5 MG TABLET PO SCH ×3 (08:00→15:04)
[2021-10-15 08:40] VITALS: BP 104/47
[2021-10-15] MEDS: ESCITALOPRAM OXALATE 10 MG TAB PO SCH (09:00)
[2021-10-15] MEDS: POLYETHYLENE GLYCOL 3350 17 GM PACK PO SCH ×2 (09:00→17:11)
[2021-10-15] MEDS: HEPARIN SOD (PORCINE) 5,000 UNIT/ML VIAL SC SCH ×2 (09:00→21:22)
[2021-10-15] MEDS: DOCUSATE SODIUM 100 MG CAP PO SCH ×2 (09:00→17:11)
[2021-10-15 09:02] VITALS: BP 104/47
[2021-10-15 11:47] VITALS: BP 143/74
[2021-10-15] MEDS: NYSTATIN 15 GM POWDER UD BTL TOP SCH ×2 (13:40→17:11)
[2021-10-15 15:34] VITALS: BP 152/68
[2021-10-15] MEDS ORDERED: Vancomycin IV 1 GM in SODIUM CHLORIDE 0.9% 250ML 250 ML IV SCH (17:00)
[2021-10-15] MEDS: Morphine 4mg Syringe 4 MG/ML INJ IV PRN ×2 (17:11→21:19)
[2021-10-15 20:00] VITALS: BP 156/77
[2021-10-16] VITALS (9 sets, daily range): BP systolic 102–136; BP diastolic 36–77
[2021-10-16] MEDS: Morphine 4mg Syringe 4 MG/ML INJ IV PRN ×3 (01:19→20:28)
[2021-10-16] MEDS: LEVOTHYROXINE SODIUM 75 MCG TAB PO SCH (05:20)
[2021-10-16 05:46] LABS: BASOPHILS # (AUTO) 0.1 (0.0-0.1); BASOPHILS % 0.4 % (0.0-1.0); EOSINOPHILS # (AUTO) 0.3 (0.0-0.4); EOSINOPHILS % 2.1 % (0.0-6.0); HEMATOCRIT 30.4 % (34.2-44.1); HEMOGLOBIN 9.1 g/dL (12.0-16.0); LYMPHOCYTES # (AUTO) 0.8 (1.0-3.2); LYMPHOCYTES % 5.5 % (18.0-39.1); MEAN CORPUSCULAR HEMOGLOBIN 31.6 pg (28-32); MEAN CORPUSCULAR HGB CONC 29.9 g/dL (31-35); MEAN CORPUSCULAR VOLUME 105.6 fL (81-99); MONOCYTES # (AUTO) 1.1 (0.2-0.8); MONOCYTES % 7.7 % (4.4-11.3); NEUTROPHILS # (AUTO) 11.7 (2.1-6.9); NEUTROPHILS % 83.7 % (38.7-80.0); PLATELET COUNT 265 x10e3/uL (140-360); RED BLOOD COUNT 2.88 x10e6/uL (3.6-5.1); RED CELL DISTRIBUTION WIDTH 14.6 % (11.7-14.4)
[2021-10-16 06:13] LABS: CALCIUM 8.4 mg/dL (8.4-10.2); CREATININE, SERUM 3.92 mg/dL (0.57-1.11)
[2021-10-16] MEDS: INSULIN REGULAR, HUMAN 100 UNIT/1 ML SQ SCH ×4 (07:30→20:38)
[2021-10-16] MEDS: HEPARIN SOD (PORCINE) 5,000 UNIT/ML VIAL SC SCH (09:00)
[2021-10-16] MEDS: PANTOPRAZOLE SOD 40 MG TABEC PO SCH (09:26)
[2021-10-16] MEDS: ESCITALOPRAM OXALATE 10 MG TAB PO SCH (09:26)
[2021-10-16] MEDS: MIDODRINE HCL 5 MG TABLET PO SCH ×3 (09:26→16:15)
[2021-10-16] MEDS: DOCUSATE SODIUM 100 MG CAP PO SCH ×2 (09:26→17:59)
[2021-10-16] MEDS: NYSTATIN 15 GM POWDER UD BTL TOP SCH ×2 (09:26→17:59)
[2021-10-16] MEDS: POLYETHYLENE GLYCOL 3350 17 GM PACK PO SCH ×2 (09:26→17:59)
[2021-10-17] VITALS (8 sets, daily range): BP systolic 87–140; BP diastolic 52–77
[2021-10-17] MEDS: LEVOTHYROXINE SODIUM 75 MCG TAB PO SCH (05:03)
[2021-10-17] MEDS: Morphine 4mg Syringe 4 MG/ML INJ IV PRN ×2 (05:04→20:39)
[2021-10-17 06:04] LABS: BASOPHILS # (AUTO) 0.1 (0.0-0.1); BASOPHILS % 0.6 % (0.0-1.0); EOSINOPHILS # (AUTO) 0.3 (0.0-0.4); EOSINOPHILS % 2.4 % (0.0-6.0); HEMATOCRIT 29.6 % (34.2-44.1); HEMOGLOBIN 9.3 g/dL (12.0-16.0); LYMPHOCYTES # (AUTO) 1.1 (1.0-3.2); LYMPHOCYTES % 7.3 % (18.0-39.1); MEAN CORPUSCULAR HEMOGLOBIN 32.5 pg (28-32); MEAN CORPUSCULAR HGB CONC 31.4 g/dL (31-35); MEAN CORPUSCULAR VOLUME 103.5 fL (81-99); MONOCYTES # (AUTO) 1.2 (0.2-0.8); MONOCYTES % 8.3 % (4.4-11.3); NEUTROPHILS # (AUTO) 11.7 (2.1-6.9); NEUTROPHILS % 80.8 % (38.7-80.0); PLATELET COUNT 258 x10e3/uL (140-360); RED BLOOD COUNT 2.86 x10e6/uL (3.6-5.1)
[2021-10-17] MEDS: ACETAMINOPHEN 325 MG TAB PO PRN (06:13)
[2021-10-17 06:23] LABS: ANION GAP 23.8 mmol/L (8-16); CALCIUM 8.6 mg/dL (8.4-10.2); CREATININE, SERUM 4.85 mg/dL (0.57-1.11); POTASSIUM 4.8 mmol/L (3.5-5.1)
[2021-10-17] MEDS: PANTOPRAZOLE SOD 40 MG TABEC PO SCH (07:30)
[2021-10-17] MEDS: INSULIN REGULAR, HUMAN 100 UNIT/1 ML SQ SCH ×4 (07:30→20:22)
[2021-10-17] MEDS: MIDODRINE HCL 5 MG TABLET PO SCH ×3 (08:00→16:00)
[2021-10-17] MEDS: DOCUSATE SODIUM 100 MG CAP PO SCH ×2 (09:00→17:34)
[2021-10-17] MEDS: ESCITALOPRAM OXALATE 10 MG TAB PO SCH (09:00)
[2021-10-17] MEDS: POLYETHYLENE GLYCOL 3350 17 GM PACK PO SCH ×2 (09:00→17:00)
[2021-10-17] MEDS: NYSTATIN 15 GM POWDER UD BTL TOP SCH ×2 (09:00→17:34)
[2021-10-17] MEDS ORDERED: ALBUMIN 25% 12.5GM 0.25 GM/ML BTL IV PRN (10:00)
[2021-10-17] MEDS ORDERED: SODIUM CHLORIDE 0.9% 1000ML 2,000 ML IV PRN (10:00)
[2021-10-17] MEDS ORDERED: SODIUM CHLORIDE 0.9% 250ML 500 ML IV PRN (10:00)
[2021-10-18] VITALS (7 sets, daily range): BP systolic 111–126; BP diastolic 62–71
[2021-10-18] MEDS: Morphine 4mg Syringe 4 MG/ML INJ IV PRN ×2 (03:18→22:17)
[2021-10-18] MEDS: LEVOTHYROXINE SODIUM 75 MCG TAB PO SCH (06:44)
[2021-10-18] MEDS: PANTOPRAZOLE SOD 40 MG TABEC PO SCH (07:30)
[2021-10-18] MEDS: INSULIN REGULAR, HUMAN 100 UNIT/1 ML SQ SCH ×4 (07:30→21:00)
[2021-10-18] MEDS: MIDODRINE HCL 5 MG TABLET PO SCH ×3 (08:00→16:00)
[2021-10-18] MEDS: ESCITALOPRAM OXALATE 10 MG TAB PO SCH (09:00)
[2021-10-18] MEDS: DOCUSATE SODIUM 100 MG CAP PO SCH ×2 (09:00→17:00)
[2021-10-18] MEDS: NYSTATIN 15 GM POWDER UD BTL TOP SCH ×2 (09:00→17:00)
[2021-10-18] MEDS: POLYETHYLENE GLYCOL 3350 17 GM PACK PO SCH ×2 (09:00→17:00)
[2021-10-18] MEDS: ONDANSETRON HCL INJ 2MG/ML 2ML 2 MG/ML VIAL IV PRN (22:16)
[2021-10-19] VITALS (8 sets, daily range): BP systolic 120–137; BP diastolic 60–80
[2021-10-19] MEDS: LEVOTHYROXINE SODIUM 75 MCG TAB PO SCH (06:00)
[2021-10-19] MEDS: PANTOPRAZOLE SOD 40 MG TABEC PO SCH (08:14)
[2021-10-19] MEDS: DOCUSATE SODIUM 100 MG CAP PO SCH ×2 (08:14→17:00)
[2021-10-19] MEDS: ESCITALOPRAM OXALATE 10 MG TAB PO SCH (08:14)
[2021-10-19] MEDS: INSULIN REGULAR, HUMAN 100 UNIT/1 ML SQ SCH ×4 (08:15→22:15)
[2021-10-19] MEDS: MIDODRINE HCL 5 MG TABLET PO SCH ×3 (08:15→17:11)
[2021-10-19] MEDS: Morphine 4mg Syringe 4 MG/ML INJ IV PRN ×3 (08:17→20:01)
[2021-10-19] MEDS: NYSTATIN 15 GM POWDER UD BTL TOP SCH ×2 (08:29→18:13)
[2021-10-19] MEDS: POLYETHYLENE GLYCOL 3350 17 GM PACK PO SCH ×2 (08:31→17:00)
[2021-10-20] VITALS (9 sets, daily range): BP systolic 106–146; BP diastolic 62–91
[2021-10-20] MEDS: ACETAMINOPHEN 325 MG TAB PO PRN (00:39)
[2021-10-20] MEDS: Morphine 4mg Syringe 4 MG/ML INJ IV PRN ×3 (04:30→20:03)
[2021-10-20] MEDS: LEVOTHYROXINE SODIUM 75 MCG TAB PO SCH (05:35)
[2021-10-20 07:00] LABS: BASOPHILS # (AUTO) 0.1 (0.0-0.1); BASOPHILS % 0.4 % (0.0-1.0); EOSINOPHILS # (AUTO) 0.5 (0.0-0.4); EOSINOPHILS % 3.7 % (0.0-6.0); HEMATOCRIT 32.6 % (34.2-44.1); HEMOGLOBIN 9.9 g/dL (12.0-16.0); LYMPHOCYTES # (AUTO) 0.8 (1.0-3.2); LYMPHOCYTES % 5.5 % (18.0-39.1); MEAN CORPUSCULAR HEMOGLOBIN 32.6 pg (28-32); MEAN CORPUSCULAR HGB CONC 30.4 g/dL (31-35); MEAN CORPUSCULAR VOLUME 107.2 fL (81-99); MONOCYTES # (AUTO) 0.9 (0.2-0.8); NEUTROPHILS # (AUTO) 12.1 (2.1-6.9); NEUTROPHILS % 83.7 % (38.7-80.0); PLATELET COUNT 225 x10e3/uL (140-360); RED BLOOD COUNT 3.04 x10e6/uL (3.6-5.1); RED CELL DISTRIBUTION WIDTH 15.1 % (11.7-14.4)
[2021-10-20 07:14] LABS: ALBUMIN 2.4 g/dL (3.5-5.0); ALBUMIN/GLOBULIN RATIO 0.6 (0.8-2.0); ANION GAP 19.6 mmol/L (8-16); CALCIUM 8.5 mg/dL (8.4-10.2); CREATININE, SERUM 5.52 mg/dL (0.57-1.11); POTASSIUM 4.6 mmol/L (3.5-5.1)
[2021-10-20] MEDS: PANTOPRAZOLE SOD 40 MG TABEC PO SCH (08:35)
[2021-10-20] MEDS: DOCUSATE SODIUM 100 MG CAP PO SCH ×2 (08:36→17:00)
[2021-10-20] MEDS: MIDODRINE HCL 5 MG TABLET PO SCH ×3 (08:36→17:41)
[2021-10-20] MEDS: ESCITALOPRAM OXALATE 10 MG TAB PO SCH (08:36)
[2021-10-20] MEDS: NYSTATIN 15 GM POWDER UD BTL TOP SCH ×2 (08:36→17:36)
[2021-10-20] MEDS: INSULIN REGULAR, HUMAN 100 UNIT/1 ML SQ SCH ×4 (08:36→21:47)
[2021-10-20] MEDS: POLYETHYLENE GLYCOL 3350 17 GM PACK PO SCH ×3 (08:36→15:27)
[2021-10-20] MEDS ORDERED: SODIUM CHLORIDE 0.9% 1000ML 2,000 ML IV PRN (08:45)
[2021-10-20] MEDS ORDERED: MANNITOL 25% 12.5GM/50 ML VIAL IV PRN (08:45)
[2021-10-20] MEDS ORDERED: ALBUMIN 25% 12.5GM 0.25 GM/ML BTL IV PRN (08:45)
[2021-10-20] MEDS ORDERED: SODIUM CHLORIDE 0.9% 250ML 500 ML IV PRN (08:45)
[2021-10-20] MEDS ORDERED: MIDODRINE 2.5 MG TAB PO SCH (12:00)
[2021-10-20] MEDS ORDERED: SODIUM THIOSULFATE 25 GM in SODIUM CHLORIDE 0.9% 100 ML 100 ML IV ONE (15:30)
[2021-10-21 00:15] VITALS: BP 107/64
[2021-10-21] MEDS: Morphine 4mg Syringe 4 MG/ML INJ IV PRN ×2 (01:22→20:10)
[2021-10-21 04:00] VITALS: BP 127/72
[2021-10-21 05:17] LABS: BASOPHILS # (AUTO) 0.1 (0.0-0.1); BASOPHILS % 0.4 % (0.0-1.0); EOSINOPHILS # (AUTO) 0.4 (0.0-0.4); EOSINOPHILS % 2.4 % (0.0-6.0); HEMATOCRIT 30.4 % (34.2-44.1); HEMOGLOBIN 9.4 g/dL (12.0-16.0); LYMPHOCYTES # (AUTO) 1.1 (1.0-3.2); LYMPHOCYTES % 6.6 % (18.0-39.1); MEAN CORPUSCULAR HEMOGLOBIN 32.4 pg (28-32); MEAN CORPUSCULAR HGB CONC 30.9 g/dL (31-35); MEAN CORPUSCULAR VOLUME 104.8 fL (81-99); MONOCYTES # (AUTO) 1.2 (0.2-0.8); MONOCYTES % 7.7 % (4.4-11.3); NEUTROPHILS # (AUTO) 13.1 (2.1-6.9); NEUTROPHILS % 82.1 % (38.7-80.0); PLATELET COUNT 246 x10e3/uL (140-360); RED CELL DISTRIBUTION WIDTH 15.4 % (11.7-14.4)
[2021-10-21 05:36] LABS: ANION GAP 24.7 mmol/L (8-16); CALCIUM 9.1 mg/dL (8.4-10.2); CREATININE, SERUM 3.87 mg/dL (0.57-1.11); POTASSIUM 3.7 mmol/L (3.5-5.1)
[2021-10-21] MEDS: LEVOTHYROXINE SODIUM 75 MCG TAB PO SCH (05:43)
[2021-10-21 07:59] VITALS: BP 137/69
[2021-10-21] MEDS: INSULIN REGULAR, HUMAN 100 UNIT/1 ML SQ SCH ×4 (08:30→21:25)
[2021-10-21] MEDS: POLYETHYLENE GLYCOL 3350 17 GM PACK PO SCH ×2 (09:00→16:37)
[2021-10-21] MEDS: DOCUSATE SODIUM 100 MG CAP PO SCH ×2 (09:00→16:37)
[2021-10-21] MEDS: NYSTATIN 15 GM POWDER UD BTL TOP SCH ×2 (09:30→16:37)
[2021-10-21] MEDS: ESCITALOPRAM OXALATE 10 MG TAB PO SCH (09:30)
[2021-10-21] MEDS: PANTOPRAZOLE SOD 40 MG TABEC PO SCH (09:30)
[2021-10-21] MEDS: MIDODRINE HCL 5 MG TABLET PO SCH ×3 (09:30→16:00)
[2021-10-21] MEDS ORDERED: ONDANSETRON HCL 4 MG ORAL DISINTEGRATING TAB PO PRN (11:15)
[2021-10-21 20:00] VITALS: BP 152/66
[2021-10-21 20:33] VITALS: BP 152/66
[2021-10-21] MEDS: CARVEDILOL 3.125 MG TAB PO SCH (21:00)
[2021-10-22] VITALS: BP 171/80
[2021-10-22 04:00] VITALS: BP 150/76
[2021-10-22 04:41] LABS: BASOPHILS # (AUTO) 0.1 (0.0-0.1); BASOPHILS % 0.4 % (0.0-1.0); EOSINOPHILS # (AUTO) 0.3 (0.0-0.4); EOSINOPHILS % 2.2 % (0.0-6.0); HEMATOCRIT 31.2 % (34.2-44.1); HEMOGLOBIN 9.6 g/dL (12.0-16.0); LYMPHOCYTES # (AUTO) 1.2 (1.0-3.2); LYMPHOCYTES % 7.9 % (18.0-39.1); MEAN CORPUSCULAR HEMOGLOBIN 32.3 pg (28-32); MEAN CORPUSCULAR HGB CONC 30.8 g/dL (31-35); MEAN CORPUSCULAR VOLUME 105.1 fL (81-99); MONOCYTES # (AUTO) 1.2 (0.2-0.8); NEUTROPHILS # (AUTO) 12.4 (2.1-6.9); NEUTROPHILS % 80.8 % (38.7-80.0); PLATELET COUNT 230 x10e3/uL (140-360); RED BLOOD COUNT 2.97 x10e6/uL (3.6-5.1)
[2021-10-22 05:04] LABS: ALBUMIN 2.3 g/dL (3.5-5.0); ALBUMIN/GLOBULIN RATIO 0.6 (0.8-2.0); ANION GAP 26.2 mmol/L (8-16); CALCIUM 9.4 mg/dL (8.4-10.2); CREATININE, SERUM 4.83 mg/dL (0.57-1.11); MAGNESIUM 2.4 MG/DL (1.3-2.1); POTASSIUM 4.2 mmol/L (3.5-5.1)
[2021-10-22] MEDS: LEVOTHYROXINE SODIUM 75 MCG TAB PO SCH (05:14)
[2021-10-22 05:19] LABS: PHOSPHORUS 4.4 MG/DL (2.3-4.7)
[2021-10-22] MEDS: PANTOPRAZOLE SOD 40 MG TABEC PO SCH (07:30)
[2021-10-22] MEDS: INSULIN REGULAR, HUMAN 100 UNIT/1 ML SQ SCH ×2 (07:30→11:30)
[2021-10-22] MEDS: Morphine 4mg Syringe 4 MG/ML INJ IV PRN ×3 (07:40→16:43)
[2021-10-22 08:20] VITALS: BP 146/71
[2021-10-22 08:52] VITALS: BP 146/71
[2021-10-22] MEDS: DOCUSATE SODIUM 100 MG CAP PO SCH ×2 (09:00→16:43)
[2021-10-22] MEDS: CARVEDILOL 3.125 MG TAB PO SCH (09:00)
[2021-10-22] MEDS: POLYETHYLENE GLYCOL 3350 17 GM PACK PO SCH ×2 (09:00→16:43)
[2021-10-22] MEDS: ESCITALOPRAM OXALATE 10 MG TAB PO SCH (09:00)
[2021-10-22] MEDS ORDERED: Morphine 4mg Syringe 4 MG/ML INJ IV PRN (10:15)
[2021-10-22] MEDS: ACETAMINOPHEN 325 MG TAB PO PRN (10:21)
[2021-10-22 11:29] VITALS: BP 118/56
[2021-10-22] MEDS ORDERED: SODIUM THIOSULFATE 25 GM in SODIUM CHLORIDE 0.9% 100 ML 100 ML IV SCH (15:00)
[2021-10-22 16:09] VITALS: BP 160/78
[2021-10-22] MEDS ORDERED: EPOETIN ALFA-EPBX 10,000 UNIT/ML VIAL SC SCH (17:00)
== END 2021-10-22 19:51 | DRG 856 ==
LOC: ER 11:35 → ERHOLD 14:01 → MED/SURG3 16:32
PROVIDERS: ADMIT Internal Medicine; ATTEND Internal Medicine
PROC: 5A1D70Z Performance of Urinary Filtration, Intermittent, Less than 6 Hours Per Day (ICD-10-PCS; 2021-10-12)
PROC: 0JB80ZZ Excision of Abdomen Subcutaneous Tissue and Fascia, Open Approach (ICD-10-PCS; principal; 2021-10-14 09:00)
DX: T81.41XA Infection following a procedure, superficial incisional surgical site, initial encounter (principal); N18.6 End stage renal disease; I96 Gangrene, not elsewhere classified; I50.32 Chronic diastolic (congestive) heart failure; I13.2 Hypertensive heart and chronic kidney disease with heart failure and with stage 5 chronic kidney disease, or end stage renal disease; K76.6 Portal hypertension; R18.8 Other ascites; L76.82 Other postprocedural complications of skin and subcutaneous tissue; I11.0 Hypertensive heart disease with heart failure; K74.60 Unspecified cirrhosis of liver; E11.22 Type 2 diabetes mellitus with diabetic chronic kidney disease; Z99.2 Dependence on renal dialysis; Z79.899 Other long term (current) drug therapy; D63.1 Anemia in chronic kidney disease; Z74.01 Bed confinement status; F32.A Depression, unspecified; E83.59 Other disorders of calcium metabolism; F41.9 Anxiety disorder, unspecified; I95.9 Hypotension, unspecified; Z74.09 Other reduced mobility; R68.0 Hypothermia, not associated with low environmental temperature; Z20.822 Contact with and (suspected) exposure to COVID-19
CPT/HCPCS: 36415; 71045; 74018; 74177; 80048; 80053; 80061; 80202; 82550; 82553; 82948; 83605; 83735; 83880; 84100; 84484; 85025; 85610; 85730; 86039; 86255; 87040; 88302; 90962; 93005; 94799; 96372; 97139; 99251; 99284; J0360; J1100; J1644; J1815; J1817; J2001; J2250; J2270; J2405; J3010; J3370; J7030; J7050; J7070; Q9967; U0002